=== PATIENT | male | born 1945 | race Caucasian/White ===

== ENCOUNTER 2017-06-23 06:48 | Day surgery (SDC) | payer MEDICARE ==
[~2017-06-23] VITALS: Ht 170.2 cm; Wt 85.1 kg
[~2017-06-23 06:48] MED LIST: ASPI81CH CHEW; CITA20TA4 PO; COZA100T PO; GABA300C5 PO; MELO7.5T4 PO; MULTCAP13 PO; NORC5TAB PO; PANT40TA3 PO; VITA400C2 PO
[2017-06-23 07:06] VITALS: BP 157/91; PULSE 89; RESP 18; TEMP 97.6; O2SAT 95
[2017-06-23] MEDS ORDERED: LACTATED RINGER'S 1000 ML INJ 1,000 ML IV SCH ×2 (07:30→09:48)
[2017-06-23] MEDS ORDERED: DIAZEPAM 5 MG TAB PO SCH (07:30)
[2017-06-23] MEDS ORDERED: DIVA500T PO (07:45)
[2017-06-23] MEDS ORDERED: ZOLP12.5 PO (07:45)
[2017-06-23] MEDS ORDERED: TRAM50TA PO (07:45)
[2017-06-23] MEDS ORDERED: areds (07:45)
[2017-06-23] MEDS ORDERED: AMLO10TA2 PO (07:45)
[2017-06-23 07:55] LABS: AUTOMATED NEUTROPHIL # 7.8 TH/MM3 (1.8-7.7); BASOPHIL # 0.1 TH/MM3 (0-0.2); BASOPHIL % 0.8 % (0.0-2.0); EOSINOPHIL # 0.1 TH/MM3 (0-0.4); EOSINOPHIL % 1.4 % (0.0-4.0); HEMATOCRIT 30.6 % (39.0-51.0); HEMO FLAGS DIFF FINAL; LYMPH % 12.2 % (9.0-44.0); LYMPHOCYTE # 1.3 TH/MM3 (1.0-4.8); MEAN CELL VOLUME 95.5 FL (80.0-100.0); MEAN CORPUSCULAR HEMOGLOBIN 32.2 PG (27.0-34.0); MEAN CORPUSCULAR HGB CONC 33.7 % (32.0-36.0); MONO % 9.9 % (0.0-8.0); NEUT % 75.7 % (16.0-70.0); PLATELET COUNT 276 TH/MM3 (150-450); RED BLOOD COUNT 3.21 MIL/MM3 (4.50-5.90); RED CELL DISTRIBUTION WIDTH 14.9 % (11.6-17.2); WHITE BLOOD COUNT 10.4 TH/MM3 (4.0-11.0)
[2017-06-23 08:04] LABS: APTT (PATIENT) 29.3 SEC (24.3-30.1); INTERNATIONAL NORMALIZED RATIO 0.9 RATIO; PROTHROMBIN TIME - PATIENT 10.2 SEC (9.8-11.6)
[2017-06-23 08:22] LABS: BICARBONATE 26.3 MEQ/L (21.0-32.0); POTASSIUM 4.3 MEQ/L (3.5-5.1)
--- NOTE | 2017-06-23 09:50 | PD.RAD ---
Post Procedure Progress Note Pre Procedure Diagnosis: (1) Lumbar radicular pain Post Procedure Diagnosis: (1) Lumbar radicular pain Procedure Date: Jun 23, 2017 Supervising Radiologist: Casimiro Billy Proceduralist/Assist: Vince Alford, RT(R), Rudy Patten RT(R) Anesthesia: Local Plan of Activity Patient to Unit: [facility] Patient Condition: Good Additional Comments: L3-4 puncture See PACS Report for procedural detail/treatment Casimiro Billy MD Jun 23, 2017 09:50
[2017-06-23] MEDS ORDERED: ACETAMINOPHEN 325 MG TAB PO PRN (10:00)
[2017-06-23] MEDS ORDERED: ONDANSETRON HCL 4 MG/2 ML VIAL IV PRN (10:00)
[2017-06-23 10:15] VITALS: BP 153/75; PULSE 72; RESP 18; TEMP 97.6; O2SAT 96
[2017-06-23] MEDS ORDERED: IOHEXOL 180 MG/ML 20 ML VIAL (for RAD DIAG) IT ONE (10:57)
--- NOTE | 2017-06-23 12:14 | RADRPT ---
EXAM DATE/TIME: 06/23/2017 09:46 [facility] COMPARISON: CT LUMBAR SPINE W/O CONTRAST, June 23, 2017, 10:03. INDICATIONS : Patient presents with lumbar pain and leg weakness in need of lumbar myelogram to rule out spondolith esis. 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 Fluoroscopic guided lumbar puncture. 2. Lumbar myelogram. The risks, benefits and alternatives to the procedure were explained and verbal and written consent w as obtained. The site was prepped in sterile fashion. Full sterile technique was used, including ca p, mask, sterile gloves and gown and a large sterile sheet. Hand hygiene and 2% chlorhexidine and/or betadine/alcohol prep was utilized per protocol for cutaneous antisepsis. The skin and subcutaneous tissues were infiltrated with local anesthetic solution. With fluoroscopic guidance the lumbar thecal sac was punctured at level above and a diagnostic quanti ty of contrast is present in the subarachnoid space. Radiographs were obtained of the lumbar spine. The patient tolerated procedure well and there were no complications. CT scan is to be performed for further evaluation. CONCLUSION: Uncomplicated lumbar myelogram as above. CT scan is to be performed for further evaluation. Casimiro Billy MD on June 23, 2017 at 12:11 Board Certified Radiologist. This report was verified electronically.
[2017-06-23 13:15] VITALS: BP 150/70; PULSE 72; RESP 20; O2SAT 96
--- NOTE | 2017-06-23 13:40 | RADRPT ---
EXAM DATE/TIME: 06/23/2017 10:03 [facility] COMPARISON: No previous studies available for comparison. INDICATIONS : Patient with lumbar pain and leg weakness. Post myelogram. RADIATION DOSE: 38.25 CTDIvol (mGy) MEDICAL HISTORY : Carcinoma, prostate. SURGICAL HISTORY : None. ENCOUNTER: Initial ACUITY: 1 day PAIN SCALE: 0/10 LOCATION: Bilateral lumbar TECHNIQUE: Volumetric scanning of the lumbar spine was performed. Multiplanar reconstructions in the sagittal, coronal and oblique axial planes were performed. Using automated exposure control and adjustment of the mA and/or kV according to patient size, radiation dose was kept as low as reasonably achievable t o obtain optimal diagnostic quality images. DICOM format image data is available electronically for review and comparison. FINDINGS: This examination was performed following injection of intrathecal contrast. VERTEBRAE: Normal vertebral body height. There are endplate osteophytes at multiple levels. There are bilateral posterior pedicular screws at L4-L5. ALIGNMENT: There is 6 mm of anterolisthesis of L4 on L5. T12-L1: No disc herniation, canal stenosis, or neural foraminal stenosis. L1-L2: There is a mild diffuse disc bulge. No spinal canal stenosis or neural foraminal narrowing is visuali zed. L2-L3: There is decreased disc height with vacuum disc phenomenon and minimal retrolisthesis. Abnormal mater ial is present in the epidural space on the left posterior to the L3 vertebral body extending approxi mately 13 mm superiorly from the disc space. This abnormality causes mass effect on the left aspect o f the thecal sac and nerve roots with severe left neural foraminal stenosis. There is also mild right neuroforaminal narrowing. There is also extruded disc material extending inferiorly from the disc sp maame by 12 mm centrally. This has significant mass effect on the thecal sac and nerve roots causing mo derate to severe spinal canal stenosis. L3-L4: There is a diffuse disc bulge with effacement of the lateral recesses. No significant neural foramina l narrowing is identified. L4-L5: Hardware is present posteriorly at this level causing severe beam hardening artifact. There is grade 1 anterolisthesis. No disc herniation or spinal canal stenosis is identified. Neural foramina are obs cured secondary to artifact. There has been laminectomy performed at this level. L5-S1: There is facet hypertrophy and hardware is present posteriorly causing beam hardening artifact. No fo deidre disc herniation or canal stenosis is identified. Neural foramina are not well-visualized but no d efinite canal stenosis is seen. There has been prior left hemilaminectomy. A defect in the right posterior iliac bone is characteristic of prior bone graft harvest site. There is a nonobstructing right upper pole renal stone measuring 11 mm. There is also severe atheroscleroti c disease of the aorta. CONCLUSION: 1. There is a large disc extrusion at the L2-L3 level with material extending superiorly from the dis placed on the left causing severe left neuroforaminal stenosis and extending inferiorly from the disc space centrally causing moderate to severe spinal canal stenosis. 2. Grade 1 anterolisthesis at L4-L5. Posterior spinal hardware is present which obscures the neural f oramina at this level. Blaise Oneil MD on June 23, 2017 at 13:29 Board Certified Radiologist. This report was verified electronically.
== END 2017-06-23 13:27 | disposition home or self-care (01) ==
LOC: HROP 06:48 → HRIP 06:52 → HROP 13:27
PROVIDERS: ATTEND Neurological Surgery
DX: M54.16 Radiculopathy, lumbar region (principal); M48.06 Spinal stenosis, lumbar region; M43.16 Spondylolisthesis, lumbar region; D64.9 Anemia, unspecified; R53.1 Weakness; R56.9 Unspecified convulsions; I10 Essential (primary) hypertension; N20.0 Calculus of kidney; G62.9 Polyneuropathy, unspecified; Z85.46 Personal history of malignant neoplasm of prostate; Z86.73 Personal history of transient ischemic attack (TIA), and cerebral infarction without residual deficits; Z01.818 Encounter for other preprocedural examination
CPT/HCPCS: 62304; 72131; 80048; 85025; 85610; 85730; Q9965

== ENCOUNTER 2017-07-04 06:27 | Observation (INO) | payer MEDICARE ==
[~2017-07-04] VITALS: Ht 168.9 cm; Wt 84.3 kg
[~2017-07-04 06:27] MED LIST changes: +AMLO10TA2 PO; +DIVA500T PO; -MULTCAP13 PO; +OCUVTAB4 PO; +TRAM50TA PO; -VITA400C2 PO; +ZOLP12.5 PO
[2017-07-04 06:38] VITALS: BP 153/80; PULSE 66; RESP 18; TEMP 97.9; O2SAT 96
[2017-07-04] MEDS ORDERED: VANCOMYCIN HCL 1000 MG ON-CALL/NS 250 ML IV SCH ×2 (07:00)
[2017-07-04] MEDS ORDERED: LACTATED RINGER'S 1000 ML IV PRN (07:00)
[2017-07-04] MEDS ORDERED: SODIUM CHLORID 0.9% 500 ML IV PRN (07:00)
[2017-07-04] MEDS ORDERED: POVIDONE IODINE 5% (ANTISEPSIS KIT) 4 APPLICATIONS EACH NARE PRN (07:00)
[2017-07-04] MEDS ORDERED: METOPROLOL TARTRATE 25 MG TAB PO PRN (07:00)
[2017-07-04] MEDS ORDERED: CHLORHEXIDINE GLUCONATE 2 % 1 PACK (2 CLOTHS) TOPICAL PRN (07:00)
[2017-07-04] MEDS ORDERED: INSULIN HUMAN REGULAR 1,000 UNITS/10 ML VIAL SQ PRN (07:00)
[2017-07-04] MEDS ORDERED: THROMBIN (TOPICAL) 5,000 UNIT VIAL ONE (07:04)
[2017-07-04] MEDS ORDERED: ceFAZolin 2 GM PREMIX 50 ML ONE (07:04)
[2017-07-04] MEDS ORDERED: methylPREDNISolone ACETATE 40 MG/ML VIAL ONE (07:04)
[2017-07-04] MEDS ORDERED: BUPIVACAINE/EPINEPHRINE 0.5% PF 30 ML VIAL ONE (07:04)
[2017-07-04] MEDS ORDERED: GELFOAM SIZE 100 ONE ×2 (07:04→08:27)
[2017-07-04] MEDS ORDERED: GENTAMICIN SULFATE 80 MG/2 ML VIAL ONE (07:05)
[2017-07-04] MEDS ORDERED: ACETAMINOPHEN 1000 MG/100 ML VIAL IV ONE (08:02)
[2017-07-04] MEDS ORDERED: FAMOTIDINE 20 MG/2 ML VIAL ONE (08:03)
[2017-07-04] MEDS ORDERED: MIDAZOLAM HCL 2 MG/2 ML VIAL ONE (08:03)
[2017-07-04] MEDS ORDERED: ARTIFICIAL TEARS OPTH OINT 3.5 APPLIC/3.5 GM TUBO ONE (08:03)
[2017-07-04] MEDS ORDERED: fentaNYL CITRATE 250 MCG/5 ML AMP ONE ×2 (08:03)
[2017-07-04] MEDS ORDERED: PROPOFOL 200 MG/20 ML AMP IV ONE (08:27)
[2017-07-04] MEDS ORDERED: ePHEDrine/NS 25 MG/5 ML SYR IV ONE (08:27)
[2017-07-04] MEDS ORDERED: NEOSTIGMINE 3 MG/3 ML SYR IV ONE (08:27)
[2017-07-04] MEDS ORDERED: LACTATED RINGER'S 1000 ML INJ 1,000 ML IV ONE (08:28)
[2017-07-04] MEDS ORDERED: PHENYLEPH/NS 1000 MCG/10 ML SYR IV ONE (08:28)
[2017-07-04] MEDS ORDERED: ONDANSETRON HCL 4 MG/2 ML VIAL IV PUSH ONE (08:28)
[2017-07-04] MEDS ORDERED: DO NOT ADM ANY ANTICOAGULANT DRUGS PRN (11:10)
[2017-07-04] MEDS ORDERED: NS + KCL 20 MEQ INJ 1,000 ML IV SCH (12:38)
[2017-07-04] MEDS ORDERED: DOCUSATE SODIUM 100 MG CAP PO SCH (12:45)
[2017-07-04] MEDS ORDERED: ACETAMINOPHEN 325 MG TAB PO PRN (12:45)
[2017-07-04] MEDS ORDERED: ACETAMINOPHEN/HYDROcodone 325 MG/10 MG TAB PO PRN ×2 (12:45)
[2017-07-04] MEDS ORDERED: SODIUM CHLORIDE 0.9% FLUSH 5 ML FLUSH IVF PRN (12:45)
[2017-07-04] MEDS ORDERED: MORPHINE SULFATE 4 MG/ML INJ IV PUSH PRN ×2 (12:45)
[2017-07-04] MEDS ORDERED: SODIUM CHLORIDE 0.9% FLUSH 5 ML FLUSH IVF SCH (12:45)
[2017-07-04] MEDS ORDERED: PANTOPRAZOLE SOD 40 MG DELAYED RELEASE TAB PO SCH (12:45)
--- NOTE | 2017-07-04 14:04 | PD.OP ---
Operative Report Date of Surgery: Jul 04, 2017 Preoperative Diagnosis: Lumbar spinal stenosis Postoperative Diagnosis: Lumbar spinal stenosis Procedure: L2-3, L3-4 decompressive laminectomy, mesial facetectomy, foraminotomy. Microsurgical dissection Anesthesia: general Surgeon: Jorden Hansen Sr. Logistics Analyst(s): Cristela Rizvi Operation and Findings: INDICATIONS FOR THE SURGICAL PROCEDURE The patient is a 72 year-old male who presented with intractable mechanical back pain and clinical evidence of L3, and L4 lower extremity radiculopathy. He was found to have significant lumbar spinal stenosis at L2-3, L3-4 with significant mass effect on the neural structures which correlated with the clinical symptoms. The patient has failed maximum nonsurgical management including multiple modalities of conservative treatment as well as pain management interventions by an interventional pain specialist. A surgical decompression was indicated as a last resort. The [id number] details of the procedure, indications, alternatives, risks and potential complications were fully discussed with the patient. The patient fully understood. All the questions were answered. No guarantees were given. The patient voiced requesting the procedure and provided informed consents. The patient was offered the alternative of delaying the procedure and continuing with nonsurgical management. DETAILS OF THE SURGICAL PROCEDURE After the induction of general anesthesia, endotracheal intubation was performed. A Sutherland catheter, bilateral ELLE hose and sequential compression devices were placed and kept throughout the procedure. The patient was positioned prone on a Terrence table over a Zana frame. All pressure points were carefully padded with eggcrate mattress. The eyes were tapped shut after ointment was applied by the anesthesiologist to prevent corneal abrasion. A Mandeep hugger was placed over the exposed lower body to maintain control of the core body temperature. The lower lumbar region was prepped and draped in the usual sterile fashion. A spinal needle was placed for localization and an x- ray performed with a C-arm. A skin incision was made in the midline over the spinous processes L2, L3, L4 with a #10 blade. Small subcutaneous bleeders were controlled with a bipolar and the dissection was carried out through the lumbar fascia exposing the spinous processes. A subperiostial dissection was performed with a Lawrence elevator and a Bovie over the L2-L3, L3-L4 spinous process lamina and facets. A microdiscectomy self-retaining retractor was placed on the incision and an x- ray was obtained with an instrument placed underneath the lamina of L2. At this point in the procedure the operating microscope was draped in the usual sterile fashion and brought to the field. The rest of the surgical procedure was performed using microsurgical dissection technique with exception of the closure. Once the level was confirmed, a decompressive laminectomy was performed at L2-L3 , L3-L4 using the TPS drill with a 4mm drill bit. A medial facetectomy was performed and the superior free border of the ligamentum flavum was dissected with a ligament dissector and removed with a thin footplate 2 mm Kerrison. The medial facetectomy was done and the L3 nerve root was identified and followed towards its exit in the foramen. Epidural veins located laterally to the dural sac were coagulated with a bipolar and incised with microscissors. Gentle medial retraction of the dural sac allowed inspection of the disc space. The patient had severe facet arthropathy with hypertrhopy of the joint facets and ligamentum flavum resulting in mass effect over the dural sac and nerve roots. In addition, there was a mild broad-based disc protusion. The incision was irrigated with a large amount of saline solution. A Valsalva maneuver failed to show any cerebrospinal fluid leak or bleeding. The decompression was assessed again and found to be satisfactory. The incision was then closed in layers. The fascia was closed with 0 Vicryl sutures in an interrupted fashion. The superficial fascia was closed with 0 Vicryl sutures. The fascia was infiltrated with 0.5% Marcaine with epinephrine 1:100,000 dilution. The subcutaneous tissue was irrigated then closed with 0 Vicryl and 3 -0 Vicryl. The skin was closed with 4-0 running subcuticular Vicryl. A sterile dressing was applied. At the end of the procedure, the sponge, needle and instrument counts were all correct. Estimated blood loss was less than 80-100 cc. No blood transfusion was given. No intraoperative complications occurred. The patient received prophylactic antibiotics. The patient was then extubated and transferred to the recovery room in stable condition. Jorden Hansen MD Jul 04, 2017 14:04
--- NOTE | 2017-07-04 14:21 | RADRPT ---
EXAM DATE/TIME: 07/04/2017 09:15 [facility] COMPARISON: No previous studies available for comparison. INDICATIONS : L2-3 Laminectomy. MEDICAL HISTORY : Carcinoma, prostatic. Smoker. SURGICAL HISTORY : None. ENCOUNTER: Initial ACUITY: 1 day PAIN SCORE: Non-responsive. LOCATION: Lumbar spine. FINDINGS: A single lateral view of the lumbar spine was performed. Level localizer was placed at the L2-3 disc interspace. CONCLUSION: Level localizer at L2-3. Vin Hirsch MD on July 04, 2017 at 14:19 Board Certified Radiologist. This report was verified electronically.
[2017-07-04 14:40] VITALS: BP 110/55; PULSE 74; RESP 17; TEMP 96.4; O2SAT 93
[2017-07-04] MEDS ORDERED: NORC5TAB PO (16:12)
[2017-07-04 16:30] VITALS: O2SAT 95
--- NOTE | 2017-07-04 16:31 | HHI.DCPOC ---
Discharge Care Plan Diagnosis: (1) S/P lumbar laminectomy Goals to Promote Your Health * To prevent worsening of your condition and complications * To maintain your health at the optimal level Directions to Meet Your Goals Take your medications as prescribed Follow your dietary instruction Follow activity as directed Keep your appointments as scheduled Take your immunizations and boosters as scheduled If your symptoms worsen call your PCP, if no PCP go to Urgent Care Center or Emergency Room Smoking is Dangerous to Your Health. Avoid second hand smoke Call the 24-hour hour crisis hotline for domestic abuse at Angelica Boyce Jul 04, 2017 16:31
--- NOTE | 2017-07-04 16:32 | HHI.DS ---
Discharge Summary Admission Date Jul 04, 2017 at 12:38 Discharge Date: Jul 04, 2017 Admitting Diagnosis s/p lumbar laminectomy (1) S/P lumbar laminectomy ICD Code: Z98.890 - Other specified postprocedural states Brief History The patient is a 72 year-old male who presented with intractable mechanical back pain and clinical evidence of L3, and L4 lower extremity radiculopathy. He was found to have significant lumbar spinal stenosis at L2-3, L3-4 with significant mass effect on the neural structures which correlated with the clinical symptoms. The patient has failed maximum nonsurgical management including multiple modalities of conservative treatment as well as pain management interventions by an interventional pain specialist. A surgical decompression was indicated as a last resort. Imaging Last Impressions Lumbar Spine X-Ray 07/04/17 0000 Signed Impressions: Service Date/Time: Friday, July 04, 2017 09:15 - CONCLUSION: Level localizer at L2-3. Vin Hirsch MD Hospital Course Mr. Castellanos underwent a L2-3, L3-4 decompressive laminectomy, mesial facetectomy, foraminotomy, microsurgical dissection on Jul 04, 2017 for lumbar spinal stenosis. His surgery went well without complications. He was discharged home in stable conditions. Pt Condition on Discharge: Stable Discharge Disposition: Discharge Home Discharge Instructions DIET: Follow Instructions for: Heart Healthy Diet ACTIVITIES You can perform: Weight Bearing As Kristine ADDITIONAL Activity Instructio: Avoid strenuous activities, heavy lifting, bending, twisting, pushing, pulling or any other activities that may place stress on the spine. Wear lumbar brace when out of bed. Use walker or assistive devices as needed when ambulating to avoid falls. Continued Medications: Amlodipine (Amlodipine) 10 Mg Tab 10 MG PO DAILY for Blood Pressure Management, #30 TAB 0 Refills Aspirin (Aspirin) 81 Mg Chew 81 MG CHEW DAILY, TAB 0 Refills Citalopram (Citalopram) 20 Mg Tab 20 MG PO DAILY for Control Depression, #30 TAB [address] (Divalproex DR) 500 Mg Tabdr 1500 MG PO DAILY for Control Seizures, #60 TAB 0 Refills Gabapentin (Gabapentin) 300 Mg Cap 300 MG PO BID, #90 CAP 0 Refills Hydrocodone-Acetaminophen (Roslyn) 5-325 mg Tab 1 TAB PO Q6H PRN for PAIN, #15 TAB 0 Refills (This prescription has been renewed ) Losartan (Cozaar) 100 Mg Tab 100 MG PO DAILY for Blood Pressure Management, #30 TAB 0 Refills Meloxicam (Meloxicam) 7.5 Mg Tab 7.5 MG PO DAILY for Arthritis Pain, TAB 0 Refills Multiple Vitamins W/ Minerals (Preservision Areds) 1 Tab 1 TAB PO DAILY for Nutritional Supplement, TAB 0 Refills Pantoprazole (Pantoprazole) 40 Mg Tab 40 MG PO DAILY for Reflux, #30 TAB 0 Refills Tramadol (Tramadol) 50 Mg Tab 100 MG PO Q6H PRN for PAIN, TAB 0 Refills Angelica Boyce Jul 04, 2017 16:32
[2017-07-04] MEDS ORDERED: ceFAZolin 2 GM PREMIX 50 ML IV SCH (17:00)
[2017-07-04] MEDS ORDERED: GABAPENTIN 300 MG CAP PO SCH (21:00)
[2017-07-05] MEDS ORDERED: LOSARTAN 50 MG TAB PO SCH (09:00)
[2017-07-05] MEDS ORDERED: DIVALPROEX DR 500 MG TABEC PO SCH (09:00)
[2017-07-05] MEDS ORDERED: CITALOPRAM HYDROBROMIDE 20 MG TAB PO SCH (09:00)
[2017-07-30] MEDS ORDERED: GABA300C5 PO (11:58)
[2017-07-30] MEDS ORDERED: IBUP400T20 PO (11:58)
[2017-09-04] MEDS ORDERED: GABA300C5 PO (14:13)
== END 2017-07-04 19:08 | disposition home or self-care (01) ==
LOC: HSDC 06:27 → HSDI 12:38 → N06B 14:24
PROVIDERS: ADMIT Neurological Surgery; ATTEND Neurological Surgery
PROC: 01NB0ZZ Release Lumbar Nerve, Open Approach (ICD-10-PCS; principal; 2017-07-04 08:18)
DX: M48.06 Spinal stenosis, lumbar region (principal); K21.9 Gastro-esophageal reflux disease without esophagitis; I10 Essential (primary) hypertension; E78.5 Hyperlipidemia, unspecified; Z85.46 Personal history of malignant neoplasm of prostate; Z79.82 Long term (current) use of aspirin; Z79.899 Other long term (current) drug therapy; Z92.3 Personal history of irradiation; Z87.891 Personal history of nicotine dependence
CPT/HCPCS: 00670; 63047; 63048; 72020; 76000; 96361; 96365; 97162; G0378; G8987; G8988; J0131; J0690; J1580; J2250; J2370; J2405; J2710; J3010; J3370; J3480; J7050; J7120; L0627; J1030

== ENCOUNTER 2018-10-02 14:42 | Inpatient (IN) ==
[2018-10-02 16:45] LABS: Baso # (Auto) 0.1 th/mm3 (0.0-0.2); Baso % (Auto) 0.8 % (0.0-2.0); Eos # (Auto) 0.1 th/mm3 (0.0-0.4); Eos % (Auto) 1.3 % (0.0-4.0); Hematocrit 29.6 % (39.0-51.0); Hemoglobin 10.2 gm/dL (13.0-17.0); Lymph % (Auto) 15.6 % (9.0-44.0); Mean Corpuscular HGB Conc 34.5 % (32.0-36.0); Mean Corpuscular Hemoglobin 31.9 pg (27.0-34.0); Mean Corpuscular Volume 92.4 fL (80.0-100.0); Mean Platelet Volume 7.3 fL (7.0-11.0); Mono # (Auto) 0.8 th/mm3 (0.0-0.9); Mono % (Auto) 12.2 % (0.0-8.0); Neut # (Auto) 4.6 th/mm3 (1.8-7.7); Neut % (Auto) 70.1 % (16.0-70.0); Platelet Count 306 th/mm3 (150-450); Red Cell Distribution Width 22.3 % (11.6-17.2); White Blood Count 6.5 th/mm3 (4.0-11.0)
[2018-10-02] MEDS ORDERED: Morphine Sulfate Inj 2 MG/ML Vial IV.PUSH ONE (16:45)
[2018-10-02 16:54] LABS: Activated Partial Thrombo Time 30.7 sec (23.4-31.7)
[2018-10-02 17:06] LABS: Alanine Aminotransferase 20 U/L (12-78); Albumin 2.9 g/dL (3.4-5.0); Anion Gap 7 meq/L (5-15); Aspartate Aminotransferase 25 U/L (15-37); Blood Urea Nitrogen 23 mg/dL (7-18); Calcium 9.2 mg/dL (8.5-10.1); Carbon Dioxide 28.6 meq/L (21.0-32.0); Chloride 103 meq/L (98-107); Glomerular Filtration Rate 57 mL/min (>89); Glucose,Random 69 mg/dL (74-106); Potassium 4.2 meq/L (3.5-5.1); Sodium 139 meq/L (136-145)
[2018-10-02 17:08] LABS: Alkaline Phosphatase 93 U/L (45-117); Total Protein 7.1 g/dL (6.4-8.2)
--- NOTE | 2018-10-02 17:12 | XR ---
EXAM DATE: 10/02/2018 5:09 PM EST AGE/SEX: 73 years / Male INDICATIONS: Shortness of breath after fall today. CLINICAL DATA: This is the patient's initial encounter. Patient reports that signs and symptoms have been present for 1 day and indicates a pain score of 10/10. MEDICAL/SURGICAL HISTORY: Carcinoma, prostatic. Smoker. . Laminectomy. COMPARISON: [facility], XR CHEST PA AND LAT, 06/27/2017. . FINDINGS: A single AP view of the chest demonstrates the lungs to be symmetrically aerated without evidence of mass, infiltrate or effusion. The cardiomediastinal contours are unremarkable. Osseous structures a re intact. CONCLUSION: No evidence of acute cardiopulmonary process. Electronically signed by: Vin Hirsch MD 10/02/2018 5:11 PM EST
--- NOTE | 2018-10-02 17:17 | XR ---
EXAM DATE: 10/02/2018 5:10 PM EST AGE/SEX: 73 years / Male INDICATIONS: Lower back pain. Fall today. CLINICAL DATA: This is the patient's initial encounter. Patient reports that signs and symptoms have been present for 1 day and indicates a pain score of 10/10. MEDICAL/SURGICAL HISTORY: Carcinoma, prostatic. Smoker. . Laminectomy. COMPARISON: [facility] [place] SPINE LUMBAR LATERAL ONLY, 07/04/2017. . FINDINGS: Flexion and extension views of the spine were performed. Significant decreased range of motion is pascale ntified. Mild retrolisthesis at L3-4 is noted.. There is no evidence of instability. Progressing degenerative disc disease has developed at L3-4 compared to the previous exam in 2017. Postsurgical changes following fusion at L5-S1 appear stable. Centimeter calcification is seen in the right paraspinal region at the L2 level which has the appearance of a renal calculus. CONCLUSION: Degenerative listhesis at L3-4 which remains unchanged during flexion and extension. Decreased range of motion. Progressing degenerative disc disease at L3-4. No acute bony abnormality. Status post fusion at L5-S1. Electronically signed by: Vin Hirsch MD 10/02/2018 5:15 PM EST
--- NOTE | 2018-10-02 17:24 | ED ---
HPI General Chief Complaint: Medical Clearance Stated Complaint: Xfer from [facility] Time Seen by Provider: 10/02/18 15:10 Source: patient and EMS Mode of arrival: EMS Limitations: physical limitation History of Present Illness HPI Narrative: 73-year-old male with transfer from [facility] in [place] to be admitted with neuro surgeon consultation. Patient states that he woke up this morning around 5:30 in the morning with complete numbness and weakness of bilateral lower extremity. Patient try to get out of bed and fell on his face and also his back. Patient complained of mild pain on the right elbow and right hand. Patient states that the numbness sensation and weakness sensation got better after about 2 hours. Patient states that he still has some numbness sensation of bilateral thigh area this afternoon. Patient states that the strength got better since then. Patient complains of leg pain cramping pain all night last night. Patient has history of chronic back pain status post back surgery in the past. Patient's neurosurgeon in the past Dr. Hansen. Patient went to [facility] today and had CT scan of the lumbar spine done. CT lumbar spine show possible hemorrhage left level to the L2 and L3. Neurosurgeon specimen preparation assistant today Dr. Peter was contacted and accepted transfer. Patient has history of prostate cancer, osteoarthritis, GERD, hypertension, neuropathy. MD Complaint: Reports back pain and back injury Onset (ago): hour(s) Duration: Reports constant Similar Symptoms Previously: No Location: Reports lumbar spine Severity: severe Quality: Reports sharp Radiation: Reports left leg and right leg Severity scale (1-10): 10 Relieving factors: none Exacerbating factors: movement Context: Reports fall Associated symptoms: Reports weakness, numbness and loss of sensation in lower extremities Treatments prior to arrival: Reports other medications Related Data Home Medications Medication Instructions Recorded Confirmed aspirin 81 mg PO DAILY 10/02/18 10/02/18 citalopram 20 mg PO DAILY 10/02/18 10/02/18 divalproex 1,500 mg PO DAILY 10/02/18 10/02/18 gabapentin 300 mg PO BID 10/02/18 10/02/18 losartan 10 mg PO DAILY 10/02/18 10/02/18 meloxicam 15 mg PO DAILY 10/02/18 10/02/18 pantoprazole [Protonix] 40 mg PO DAILY 11/09/18 11/09/18 Allergies Allergy/AdvReac Type Severity Reaction Status Date / Time No Known Allergies Unknown Uncoded 10/27/17 16:04 Review of Systems ROS: all other systems reviewed are negative PMFSH Medical History Medical History Back pain (Acute) Colonic polyp (Acute) GERD (gastroesophageal reflux disease) (Acute) Hypertension (Acute) Neuropathy (Acute) Osteoarthritis (Acute) Prostate carcinoma (Acute) Surgical History Surgical History Hx of endarterectomy (Acute) Social History Social History Substance History: No History of Abuse Second Hand Smoke Exposure: Yes Smoking Status: Current every day smoker Tobacco Type: Cigarettes How Often Do You Have a Drink Containing Alcohol: 2 to 4 times a month Recent Travel in [email or web address] within the Last 8 Weeks: No Recent Out of Country Travel within the Last 8 Weeks: No Immunization History Tetanus Immunization: Unsure Exam Narrative Exam Narrative: GENERAL: Well-nourished, well-developed patient. SKIN: Focused skin assessment warm/dry. HEAD: Normocephalic. EYES: No scleral icterus. No injection or drainage. NECK: Supple, trachea midline. No JVD or lymphadenopathy. CARDIOVASCULAR: Regular rate and rhythm without murmurs, gallops, or rubs. RESPIRATORY: Breath sounds equal bilaterally. No accessory muscle use. GASTROINTESTINAL: Abdomen soft, non-tender, nondistended. MUSCULOSKELETAL: No cyanosis, or edema. BACK: Moderate tenderness in palpation lumbar area, without obvious deformity. No CVA tenderness. Neurologic exam: Patient is awake and alert oriented x3. Patient can move all extremity. Sensory motor function distally intact. Course Initial Documented Vital Signs Temperature 97.8 F 10/02/18 15:09 Pulse Rate 80 10/02/18 15:09 Respiratory Rate 18 10/02/18 15:09 Blood Pressure 148/75 H 10/02/18 15:09 Pulse Oximetry 93 L 10/02/18 15:09 Last Documented Vital Signs Temperature 97.8 F 10/02/18 15: Pulse Rate 80 10/02/18 15:09 Respiratory Rate 18 10/02/18 15:09 Blood Pressure 148/75 H 10/02/18 15:09 Pulse Oximetry 93 L 10/02/18 15:09 Medical Decision Making MDM Narrative Medical decision making narrative: 73-year-old male with possible hemorrhage within the spinal cord level L2-L3. Patient was seen at [facility] in [place] and transferred to [place] for evaluation by neurosurgeon. Patient will be admitted to project management [facility] and neurosurgical consultation. MRI lumbar spine with and without contrast in process. Medical Screen Exam Complete: Yes Emergency Medical Condition: Yes Lab Data Result diagrams: 10/02/18 16:35 10/02/18 16:35 Lab Results 10/02/18 10/02/18 10/02/18 Range/Units 16:35 16:35 16:35 WBC 6.5 (4.0-11.0) th/mm3 RBC 3.20 L (4.50-5.90) mil/mm3 Hgb 10.2 L (13.0-17.0) gm/dL Hct 29.6 L (39.0-51.0) % MCV 92.4 (80.0-100.0) fL MCH 31.9 (27.0-34.0) pg MCHC 34.5 (32.0-36.0) % RDW 22.3 H (11.6-17.2) % Plt Count 306 (150-450) th/mm3 MPV 7.3 (7.0-11.0) fL Neut % (Auto) 70.1 H (16.0-70.0) % Lymph % (Auto) 15.6 (9.0-44.0) % Bourbon % (Auto) 12.2 H (0.0-8.0) % Eos % (Auto) 1.3 (0.0-4.0) % Baso % (Auto) 0.8 (0.0-2.0) % Neut # (Auto) 4.6 (1.8-7.7) th/mm3 Lymph # (Auto) 1.0 (1.0-4.8) th/mm3 Bourbon # (Auto) 0.8 (0.0-0.9) th/mm3 Eos # (Auto) 0.1 (0.0-0.4) th/mm3 Baso # (Auto) 0.1 (0.0-0.2) th/mm3 WBC Differential . Differential Comment Auto diff final PT 10.0 (9.8-11.6) sec INR 1.0 Ratio APTT 30.7 (23.4-31.7) sec Sodium 139 (136-145) meq/L Potassium 4.2 (3.5-5.1) meq/L Chloride 103 (98-107) meq/L Carbon Dioxide 28.6 (21.0-32.0) meq/L Anion Gap 7 (5-15) meq/L BUN 23 H (7-18) mg/dL Creatinine 1.23 (0.60-1.30) mg/dL Estimated GFR 57 L (>89) mL/min Random Glucose 69 L (74-106) mg/dL Calcium 9.2 (8.5-10.1) mg/dL Total Bilirubin 0.2 (0.2-1.0) mg/dL AST 25 (15-37) U/L ALT 20 (12-78) U/L Alkaline Phosphatase 93 (45-117) U/L Total Protein 7.1 (6.4-8.2) g/dL Albumin 2.9 L (3.4-5.0) g/dL Imaging Data Radiologist's impression: Chest X-Ray 10/02/18 16:26 CONCLUSION: No evidence of acute cardiopulmonary process. Lumbar Spine X-Ray 10/02/18 16:36 CONCLUSION: Degenerative listhesis at L3-4 which remains unchanged during flexion and extension. Decreased range of motion. Progressing degenerative disc disease at L3-4. No acute bony abnormality. Status post fusion at L5-S1. Discharge Plan Discharge Disposition Patient Disposition: 30 Still Patient Discharge Details Diagnosis: Spinal cord hemorrhage Physicians Team ED Provider: Tyrell Mittal Primary Care Provider: Srinivas Mendieta Attending Provider: Alysa Welsh Other Providers: Eloy Peter Status ED Status: Admitted Patient
[2018-10-02] MEDS ORDERED: Gadobutrol PF 10 MMOL/10 ML Vial (for RAD) IV.SIG ONE (17:37)
--- NOTE | 2018-10-02 17:41 | P.HPCC ---
History of Present Illness Primary Care Physician: Srinivas Mendieta Chief Complaint: Lower extremity weakness History of Present Illness: Patient is a 73-year-old male with past medical history significant for hypertension, COPD, Prostate carcinoma, history of previous lumbar laminectomy who came to the [place] emergency department as a transfer from transfer from [facility] [place]. He was accepted by neurosurgery Dr. Peter for acute onset bilateral lower extremity weakness. Patient states that he woke up this morning around 6 AM with numbness and weakness of bilateral lower extremity. On attempt to walk he fell on his face due to weakness. Patient states that the strength got slight better since then. CT scan of the lumbar spine large area of soft attenuation attenuation in the ventral epidural space L2-L3 level suspicious for large disc extrusion with spinal canal stenosis with differential diagnosis involving hemorrhage, there is also at least moderate bilateral neural foraminal stenosis. I evaluate the patient in the ED. He complains of weakness more on the left leg which he is unable to lift. There is generalized numbness but he is able to feel my touch. Critical care was requested to admit the patient to the ICU. Discussed with Dr. Mittal ED and Dr. Peter neurosurgery. A stat MRI of the lumbar spine had been ordered. 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 This includes certification that hospital inpatient services are reasonable and necessary and in the case of services not specified as inpatient-only under 42 CFR 419.22(n), that they are appropriately provided as inpatient services in accordance to with the 2-midnight benchmark under 43 CFR 412.3(e) Estimated Total Length of Stay (Days): 5 Plans for Post Hospital Care: Not yet determined Review of Systems All other systems reviewed negative except as stated in HPI PMFSH - History History Provided By: Patient - Medical History Medical History: Medical History (Last Reviewed 10/02/18 @ 17:40 by Tyrell Mittal MD) Back pain Colonic polyp GERD (gastroesophageal reflux disease) Hypertension Neuropathy Osteoarthritis Prostate carcinoma - Surgical History Surgical History: Surgical History (Last Reviewed 10/02/18 @ 17:40 by Tyrell Mittal MD) Hx of endarterectomy - Tobacco History Second Hand Smoke Exposure: Yes Tobacco Use In Past 30 Days: Yes Smoking Status: Current every day smoker Tobacco Type: Cigarettes - Alcohol History How Often Do You Have a Drink Containing Alcohol: 2 to 4 times a month - Substance Use History Substance History: No History of Abuse - Travel History Recent Travel in the USA Within the Last 8 Weeks: No Recent Travel Out of the Country Within the Last 8 Weeks: No - Immunization History Tetanus Immunization: Unsure Medications and Allergies Active Medications: Active Medications Acetaminophen (Tylenol) 650 mg PO Q6H PRN PRN Reason: PAIN 1-10 AND/OR FEVER >101F Al Hydroxide/Mg Hydroxide (Milk Of Magnesia Liq) 30 ml PO Q12H PRN PRN Reason: Mild Constipation Albuterol (Duoneb Neb (Prn)) 1 ampul NEB Q6HR NEB ADAM Albuterol (Albuterol Neb (Adam)) 2.5 mg NEB Q2HR NEB PRN PRN Reason: SHORTNESS OF BREATH/WHEEZING Bisacodyl (Dulcolax Supp) 10 mg RECTAL DAILY PRN PRN Reason: SEVERE CONSITIPATION Chlorhexidine Gluconate (Chlorhexidine 2% Cloth) 3 pack TOPICAL DAILY@0400 AD[facility] Stop: 10/08/18 03:59 Chlorhexidine Gluconate (Chlorhexidine 2% Cloth) 3 pack TOPICAL DAILY@0400 PRN PRN Reason: Extra cloth needed Stop: 10/08/18 03:59 Famotidine (Pepcid Pf Inj) 20 mg IV.PUSH Q12HR ADAM Sodium Chloride (Ns Inj) 1,000 mls @ 84 mls/hr IV.CONT .[id number] ADAM Lactulose (Lactulose Liq) 30 ml PO DAILY PRN PRN Reason: SEVERE CONSITIPATION Senna/Docusate Sodium (Shazia-Colace) 1 tab PO BID ADAM Sennosides (Senokot) 17.2 mg PO Q12H PRN PRN Reason: Moderate Constipation Allergies Allergy/AdvReac Type Severity Reaction Status Date / Time No Known Allergies Unknown Uncoded 10/27/17 16:04 Home Medications Medication Instructions Recorded Confirmed Type aspirin 81 mg PO DAILY 10/02/18 10/02/18 History citalopram 20 mg PO DAILY 10/02/18 10/02/18 History divalproex 1,500 mg PO DAILY 10/02/18 10/02/18 History gabapentin 300 mg PO BID 10/02/18 10/02/18 History losartan 10 mg PO DAILY 10/02/18 10/02/18 History meloxicam 15 mg PO DAILY 10/02/18 10/02/18 History pantoprazole [Protonix] 40 mg PO DAILY 10/02/18 10/02/18 History Results - Labs CBC & Chem 7: 10/03/18 04:40 10/03/18 04:40 Labs: Short CBC 10/02/18 Range/Units 16:35 WBC 6.5 (4.0-11.0) th/mm3 Hgb 10.2 L (13.0-17.0) gm/dL Hct 29.6 L (39.0-51.0) % Plt Count 306 (150-450) th/mm3 BMP 10/02/18 16:35 Sodium 139 Potassium 4.2 Chloride 103 Carbon Dioxide 28.6 BUN 23 H Creatinine 1.23 Calcium 9.2 Liver Function 10/02/18 Range/Units 16:35 Total Bilirubin 0.2 (0.2-1.0) mg/dL AST 25 (15-37) U/L ALT 20 (12-78) U/L Alkaline Phosphatase 93 (45-117) U/L Albumin 2.9 L (3.4-5.0) g/dL - Imaging Impressions Chest X-Ray 10/02/18 16:26 CONCLUSION: No evidence of acute cardiopulmonary process. Lumbar Spine X-Ray 10/02/18 16:36 CONCLUSION: Degenerative listhesis at L3-4 which remains unchanged during flexion and extension. Decreased range of motion. Progressing degenerative disc disease at L3-4. No acute bony abnormality. Status post fusion at L5-S1. Exam Vital signs: Vital Signs 10/02/18 15:09 Temperature 97.8 F Pulse Rate 80 Respiratory Rate 18 Blood Pressure 148/75 H Pulse Oximetry 93 L Intake & Output 10/01/18 10/02/18 10/02/18 18:59 06:59 18:59 Weight 81.647 kg Narrative: GENERAL: Well-nourished, well-developed patient, [place] SKIN: warm/dry. HEAD: Normocephalic. EYES: No injection or drainage. NECK: Supple, trachea midline. No JVD or lymphadenopathy. CARDIOVASCULAR: Regular rate and rhythm without murmurs, gallops, or rubs. RESPIRATORY: Air entry equal bilaterally no wheezes GASTROINTESTINAL: Abdomen soft, non-tender, nondistended. MUSCULOSKELETAL: No cyanosis, or edema. Neurologic exam: Patient alert awake oriented, normal strength bilateral upper extremities. Bilateral lower extremities extremity 4 out of 5 power. Diminished fine touch. Reflexes diminished. Septic Shock Reassessment Septic shock perfusion: reassessment completed Caprini VTE Risk Assessment Caprini VTE Risk Assessment: Moderate/High Risk (score >= 2) VTE Pharmacological Exception Reason: Hemorrhage Caprini Risk Assessment Model: Point Value = 1 Point Value = 2 Point Value = 3 Point Value = 5 Age 41-60 Minor surgery BMI > 25 kg/m2 Swollen legs Varicose veins or History of unexplained or recurrent spontaneous Oral contraceptives or hormone replacement Sepsis (< 1 month) Serious lung disease, including pneumonia (< 1 month) Abnormal pulmonary function Acute myocardial infarction Congestive heart failure (< 1 month) History of inflammatory bowel disease Medical patient at bed rest Age 61-74 Arthroscopic surgery Major open surgery (> 45 min) Laparoscopic surgery (> 45 min) Malignancy Confined to bed (> 72 hours) Immobilizing plaster cast Central venous access Age >= 75 History of VTE Family history of VTE Factor V Leiden Prothrombin [id number] Lupus anticoagulant Anticardiolipin antibodies Elevated serum homocysteine Heparin-induced thrombocytopenia Other congenital or acquired thrombophilia Stroke (< 1 month) Elective arthroplasty Hip, pelvis, or leg fracture Acute spinal cord injury (< 1 month) Prophylaxis Regimen: Total Risk Factor Score Risk Level Prophylaxis Regimen 0-1 Low Early ambulation 2 Moderate Order ONE of the following: *Sequential Compression Device (SCD) *Heparin 5000 units SQ BID 3-4 Higher Order ONE of the following medications: *Heparin 5000 units SQ TID *Enoxaparin/Lovenox 40 mg SQ daily (WT < 150 kg, CrCl > 30 mL/min) *Enoxaparin/Lovenox 30 mg SQ daily (WT < 150 kg, CrCl > 10-29 mL/min) *Enoxaparin/Lovenox 30 mg SQ BID (WT < 150 kg, CrCl > 30 mL/min) AND/OR *Sequential Compression Device (SCD) 5 or more Highest Order ONE of the following medications: *Heparin 5000 units SQ TID (Preferred with Epidurals) *Enoxaparin/Lovenox 40 mg SQ daily (WT < 150 kg, CrCl > 30 mL/min) *Enoxaparin/Lovenox 30 mg SQ daily (WT < 150 kg, CrCl > 10-29 mL/min) *Enoxaparin/Lovenox 30 mg SQ BID (WT < 150 kg, CrCl > 30 mL/min) AND *Sequential Compression Device (SCD) 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 Code(s): M47.16 - Other spondylosis with myelopathy, lumbar region Status: Acute (2) Weakness of lower extremity Code(s): R29.898 - Other symptoms and signs involving the musculoskeletal system Status: Acute (3) COPD (chronic obstructive pulmonary disease) Code(s): J44.9 - Chronic obstructive pulmonary disease, unspecified Status: Chronic (4) History of prostate cancer Code(s): Z85.46 - Personal history of malignant neoplasm of prostate Status: Chronic (5) History of hypertension Code(s): Z86.79 - Personal history of other diseases of the circulatory system Status: Chronic - Assessment and Plan Plan: ASSESSMENT: Lumbar cord compression likely secondary to herniated disc and spinal stenosis Weakness of bilateral lower extremity/paraparesis History of prostate cancer COPD Hypertension PLAN: NEURO: -Clinical findings consistent with spinal cord compression -CT lumbar spine at the outside hospital shows acute disc protrusion L2-L3 level , possible epidural hemorrhage causing compression of the spinal cord -Patient is getting stat MRI of the lumbar spine Dr. Peter neurosurgery is aware -Avoid hypotension pain controlled with morphine RESP: -DuoNeb every 6 hours scheduled and as needed -Aggressive pulmonary toilet CV: -Normal saline IV fluids 125 mL/h -Avoid hypotension, target map above 70-80 GI: -N.p.o. until surgical plans are defined, IV famotidine : -Monitor renal function closely. -IV hydration as above ID: -No indication for antibiotics at this time HEME: -Monitor CBC, coags -Coags are normal ENDO: -Electrolyte replacement per protocol PROPH: -Bilateral lower extremity SCDs. No chemical DVT prophylaxis until epidural hematoma is ruled out/famotidine LINES: -Utilize peripheral IVs, central line if needed Stat MRI shows MRI showing large herniated disc at L2-L3 and flex/ex showing instability at this level. Dr. Peter is planning for emergent posterior lumbar spinal fusion, Left L2/3 microdiscectomy. At this time patient is critically ill with potential risk of permanent paraplegia. CCT 35 MIN
--- NOTE | 2018-10-02 18:28 | MR ---
EXAM DATE: 10/02/2018 6:12 PM EST AGE/SEX: 73 years / Male INDICATIONS: Pain. Hematoma,patient fall today and had numbness in both legs. CLINICAL DATA: This is the patient's initial encounter. Patient reports that signs and symptoms have been present for 1 day and indicates a pain score of 6/10. MEDICAL/SURGICAL HISTORY: Carcinoma, prostatic. Carotid endarterectomy. [place] [facility] [place] 06/23/2017. . TECHNIQUE: Multiplanar, multisequence MRI examination of the lumbar spine was performed without and with 8 ml Gadavist (gadobutrol) contrast as a single exam dose. FINDINGS: Surgical changes of fusion procedure with posterior instrumentation again noted at L4/L5. There is as sociated magnetic susceptibility artifact. There is solid-appearing bony bridging with unchanged, res idual grade 1 anterolisthesis of L4 on L5. No perceptible epidural hematoma. A large, chronic appearing inferiorly extruded posterior disc fragment is seen at L2/L3. This causes short segment moderate to severe spinal stenosis. There is moderate to severe bilateral foraminal yazan nosis at this level as well. There is 4 mm of degenerative-appearing retrolisthesis at this level, sl ightly worse from the prior CT. Small, broad posterior disc protrusions and moderate bilateral facet osteoarthritis seen at T12/L1, L 1/L2 and L3/L4 and L5/S1 without associated significant foraminal or spinal stenosis. No abnormal enhancement seen. CONCLUSION: 1. No fracture or acute appearing malalignment of the lumbar spine. 2. Grade 1 degenerative retrolisthesis with a large, chronic inferiorly extruded posterior disc frag ment at L2/L3. There is moderate to severe spinal stenosis and moderate to severe bilateral foraminal stenosis at this level. 3. Fusion at L4/L5 with associated magnetic susceptibility artifact. No perceptible acute complicati on at this level. Electronically signed by: Blaise Zarate MD 10/02/2018 6:27 PM EST
--- NOTE | 2018-10-02 19:17 | P.CONNS ---
History of Present Illness Primary Care Provider: Srinivas Mendieta Chief Complaint: Lower extremity weakness History of Present Illness: 73yoM s/p L4/5 fusion 06/2017 ([facility]) who was in his usual state of health until this morning when he got out of bed and could not put weight on his legs, he fell. He heard a pop prior to all of this. He has been numb in his legs and weak since that time, unable to bear weight. Transferred here from outside ED. MRI showing large herniated disc at L2/3 (one level about his prior fusion) and flex/ex showing instability at this level. Denies bowel or bladder incontinence. Has been unable to walk (bear weight). PMF - History History Provided By: Patient - Medical History Medical History: Medical History (Last Reviewed 10/02/18 @ 17:40 by Tyrell Mittal MD) Back pain Colonic polyp GERD (gastroesophageal reflux disease) Hypertension Neuropathy Osteoarthritis Prostate carcinoma - Surgical History Surgical History: Surgical History (Last Reviewed 10/02/18 @ 17:40 by Tyrell Mittal MD) Hx of endarterectomy - Tobacco History Second Hand Smoke Exposure: Yes Tobacco Use In Past 30 Days: Yes Smoking Status: Current every day smoker Tobacco Type: Cigarettes - Alcohol History How Often Do You Have a Drink Containing Alcohol: 2 to 4 times a month - Substance Use History Substance History: No History of Abuse - Travel History Recent Travel in the [place] Within the Last 8 Weeks: No Recent Travel Out of the Country Within the Last 8 Weeks: No - Immunization History Tetanus Immunization: Unsure Medications and Allergies Active Medications: Active Medications Acetaminophen (Tylenol) 650 mg PO Q6H PRN PRN Reason: PAIN 1-10 AND/OR FEVER >101F Al Hydroxide/Mg Hydroxide (Milk Of Padmini Limartha) 30 ml PO Q12H PRN PRN Reason: Mild Constipation Albuterol (Duoneb Neb (Adam)) 1 ampul NEB Q6HR NEB ADAM Albuterol (Albuterol Neb (Prn)) 2.5 mg NEB Q2HR NEB PRN PRN Reason: SHORTNESS OF BREATH/WHEEZING Bisacodyl (Dulcolax Supp) 10 mg RECTAL DAILY PRN PRN Reason: SEVERE CONSITIPATION Chlorhexidine Gluconate (Chlorhexidine 2% Cloth) 3 pack TOPICAL DAILY@0400 [facility] Stop: 10/08/18 03:59 Chlorhexidine Gluconate (Chlorhexidine 2% Cloth) 3 pack TOPICAL DAILY@0400 PRN PRN Reason: Extra cloth needed Stop: 10/08/18 03:59 Famotidine (Pepcid Pf Inj) 20 mg IV.PUSH Q12HR ADAM Sodium Chloride (Ns Inj) 1,000 mls @ 84 mls/hr IV.CONT .[id number] ADAM Lactulose (Lactulose Liq) 30 ml PO DAILY PRN PRN Reason: SEVERE CONSITIPATION Morphine Sulfate (Morphine Inj) 2 mg IV.PUSH Q4H PRN PRN Reason: 6-10 pain Senna/Docusate Sodium (Shazia-Colace) 1 tab PO BID ADAM Sennosides (Senokot) 17.2 mg PO Q12H PRN PRN Reason: Moderate Constipation Allergies Allergy/AdvReac Type Severity Reaction Status Date / Time No Known Allergies Unknown Uncoded 10/27/17 16:04 Home Medications Medication Instructions Recorded Confirmed Type aspirin 81 mg PO DAILY 10/02/18 10/02/18 History citalopram 20 mg PO DAILY 10/02/18 10/02/18 History divalproex 1,500 mg PO DAILY 10/02/18 10/02/18 History gabapentin 300 mg PO BID 10/02/18 10/02/18 History losartan 10 mg PO DAILY 10/02/18 10/02/18 History meloxicam 15 mg PO DAILY 10/02/18 10/02/18 History pantoprazole [Protonix] 40 mg PO DAILY 10/02/18 10/02/18 History Exam Vital signs: Vital Signs 10/02/18 15:09 10/02/18 16:26 10/02/18 17:28 Temperature 97.8 F Pulse Rate 80 70 Respiratory Rate 18 20 Blood Pressure 148/75 H 148/75 H Pulse Oximetry 93 L 91 L 90 L 10/02/18 18:16 10/02/18 18:17 Temperature Pulse Rate 84 84 Respiratory Rate 18 Blood Pressure 132/65 Pulse Oximetry 87 L Intake & Output 10/02/18 10/02/18 10/03/18 06:59 18:59 06:59 Weight 81.647 kg Narrative: A&O x 3 CN II - XII intact Motor 5/5 UE/LE -- LE tests to full strength in bed, but patient unable to bear weight Sensation intact to bedside testing though he endorses diminished sensation in both legs Results - Laboratory Findings CBC and BMP: 10/02/18 16:35 10/02/18 16:35 Abnormal lab findings: Abnormal Labs 10/02/18 10/02/18 16:35 16:35 RBC 3.20 L Hgb 10.2 L Hct 29.6 L RDW 22.3 H Neut % (Auto) 70.1 H [place] % (Auto) 12.2 H BUN 23 H Estimated GFR 57 L Random Glucose 69 L Albumin 2.9 L - Diagnostic Findings Additional findings: MRI L-spine: large herniated disc L2/3, eccentric to right with resultant spinal stenosis L2/3 loss of disc height, instability Assessment and Plan - Plan Code Status: 73yoM with adjacent level disease L2/3 with resultant disc herniation causing severe spinal stenosis. Discussed with Dr. Hansen. Plan for extension of prior fusion from L4/5 up to L2 /3 and discectomy with laminectomy, starting from the right side. Patient understands the risks of paralysis, weakness, spinal fluid leak and wishes to proceed. We will proceed urgently given his neurologic weakness.
[2018-10-02] MEDS ORDERED: HYDROmorphone PF Inj 2 MG/ML Vial ONE (19:24)
[2018-10-02] MEDS ORDERED: fentaNYL Citrate Inj 250 MCG/5 ML Ampul ONE (19:24)
[2018-10-02] MEDS ORDERED: Propofol Inj 500 MG/50 ML Vial ONE (19:24)
[2018-10-02] MEDS ORDERED: Bupivacaine/Epinephrine PF Inj 0.5% 30 ML Vial ONE (19:36)
[2018-10-02] MEDS ORDERED: Lidocaine 1% Inj 50 ML Vial ONE (19:36)
[2018-10-02] MEDS ORDERED: Thrombin Topical Soln 5,000 UNIT Vial TOPICAL ONE (19:37)
[2018-10-02] MEDS ORDERED: Gelatin Size 100 Topical Foam ONE (19:37)
[2018-10-02] MEDS ORDERED: Phenylephrine/NS 1000 MCG/10ML Syringe IV.PUSH ONE (20:11)
[2018-10-02] MEDS ORDERED: Lidocaine PF 1% Inj 5 ML Syringe INFILTRATN ONE (20:11)
[2018-10-02] MEDS ORDERED: ceFAZolin 2 GM Premix Inj 2 GM/50 ML PIGGYBACK IV.SIG ONE (20:14)
[2018-10-02] MEDS: Senna/Docusate Sodium 8.6/50 MG Tablet PO SCH (21:30)
[2018-10-02] MEDS: Famotidine PF Inj 20 MG/2 ML Vial IV.PUSH SCH (21:30)
--- NOTE | 2018-10-03 01:40 | P.OP ---
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 This morning, he awoke with a "pop" in his back and had trouble moving his legs with weakness. Imaging shows a large L2/3 disc eccentric to the right and slight instability at L2/3 secondary to adjacent level disease. Extension of fusion up to L2 with discectomy at Left L2/3 is indicated. Description of Procedure Patient brought to [facility] and intubated. He was placed in the prone position, all pressure points padded. Midline lumbar spine was prepped and draped in the usual sterile fashion. Old incision opened sharply down to spinous process of L2 through L5. Old L2/3 laminectomy defect identified. Old screws at L4/5 identified with fluoroscopy. Metal cutting bur used to cut the steel rods after removing the set screws with the universal set. The screw head claims adjuster crop was used to remove the old screws and new 7.5mm screws x 45mm were placed down the old pedicle tracts. Bilateral L2 and L3 pedicle screws were placed using the awl, drill, tap method. Fluoroscopy used to confirm and reposition right L3 screw. 80mm rods lordotic placed and secured and final tightetened. Left L2 /3 interval addressed and scar removed from epidural space. Exiting nerve root identified and thecal sac retraced medially to identify the L2/3 disc space. Several fragments of disc were removed, ultimately relieving pressure on the thecal sac. In the process, some fluid was noted to be spinal fluid intermixing with blood, likely from a small ventral tear along the nerve root. Tisseal was placed in the dissection cavity with immediate stop of fluid leak. After irrigation, and placement of bone graft along the rods, wound closed tightly in layers with 0-Vicryl and 2-0 Vicryl followed by monocril and dermabond for skin. Plan for admission to [facility] overnight intubated given late finish and 50 pack year smoking history. Plan to keep him down x 24 hours ( unti Friday morning). EBL 350cc, no periprocedural complications.
--- NOTE | 2018-10-03 01:59 | XR ---
EXAM DATE: 10/03/2018 1:55 AM EST AGE/SEX: 73 years / Male INDICATIONS: L2-5 Posterior lumbar fusion. CLINICAL DATA: This is the patient's subsequent encounter. Patient reports that signs and symptoms h ave been present for 2 days and indicates a pain score of Nonresponsive. MEDICAL/SURGICAL HISTORY: Hypertension. Osteoarthritis. Carcinoma, prostatic. GERD. COPD. Sm oker. . Previous lumbar laminectomy. Endarterectomy. COMPARISON: [facility] – [place], LUMBAR SPINE FLX/EXT ONLY, 10/02/2018. . FINDINGS: For magnified C-arm spot images of the lumbar spine show bilateral transpedicular posterior fixation involving L2, L3, L4, and L5. Vertical stabilizer bars noted. Heterotopic bone involving the lateral masses. CONCLUSION: Limited images as detailed above. Electronically signed by: Todd Prater MD 10/03/2018 1:57 AM EST
[2018-10-03] MEDS: Sod Chloride 0.9% Inj 1,000 ML IV.CONT SCH ×4 (02:10→22:50)
[2018-10-03] MEDS: Propofol 1000 mg/100 ml Inj 1,000 MG/100 ML BOTTLE IV.CONT PRN ×4 (03:10→20:29)
[2018-10-03] MEDS: fentaNYL 10 mcg/mL Premix Drip 2,500 MCG/250 ML BAG IV.SIG PRN ×2 (03:12→17:16)
[2018-10-03 03:13] LABS: ABG Base Excess -1.6 mmol/L (-2-2); ABG PCO2 55 mmHg (38-42); ABG PO2 97 mmHg (61-120)
[2018-10-03] MEDS ORDERED: Chlorhexidine Gluconate 2% 1 Pack (2 Cloths) TOPICAL PRN (04:00)
[2018-10-03] MEDS ORDERED: Sod Chloride 0.9% Inj 1,000 ML IV.SIG ONE (04:00)
[2018-10-03] MEDS: Chlorhexidine Gluconate 2% 1 Pack (2 Cloths) TOPICAL SCH (04:10)
[2018-10-03] MEDS: Oral Hygiene Kit OROPHARYNG SCH ×2 (04:10→15:38)
[2018-10-03 05:17] LABS: Baso % (Auto) 0.2 % (0.0-2.0); Hemoglobin 8.3 gm/dL (13.0-17.0); Lymph # (Auto) 0.5 th/mm3 (1.0-4.8); Lymph % (Auto) 4.5 % (9.0-44.0); Mean Corpuscular HGB Conc 31.7 % (32.0-36.0); Mean Corpuscular Hemoglobin 29.8 pg (27.0-34.0); Mean Corpuscular Volume 93.8 fL (80.0-100.0); Mean Platelet Volume 7.3 fL (7.0-11.0); Mono # (Auto) 0.2 th/mm3 (0.0-0.9); Mono % (Auto) 1.4 % (0.0-8.0); Neut # (Auto) 10.5 th/mm3 (1.8-7.7); Neut % (Auto) 93.9 % (16.0-70.0); Platelet Count 319 th/mm3 (150-450); Red Blood Count 2.78 mil/mm3 (4.50-5.90); White Blood Count 11.2 th/mm3 (4.0-11.0)
[2018-10-03 05:42] LABS: Alanine Aminotransferase 16 U/L (12-78); Albumin 2.3 g/dL (3.4-5.0); Anion Gap 12 meq/L (5-15); Aspartate Aminotransferase 26 U/L (15-37); Blood Urea Nitrogen 24 mg/dL (7-18); Calcium 7.9 mg/dL (8.5-10.1); Carbon Dioxide 23.1 meq/L (21.0-32.0); Chloride 104 meq/L (98-107); Glomerular Filtration Rate 49 mL/min (>89); Glucose,Random 175 mg/dL (74-106); Potassium 4.9 meq/L (3.5-5.1); Sodium 139 meq/L (136-145)
[2018-10-03 06:02] LABS: Alkaline Phosphatase 76 U/L (45-117); Total Protein 5.6 g/dL (6.4-8.2)
--- NOTE | 2018-10-03 06:31 | P.PNCC ---
Subjective Subjective Remarks/Hospital Course: Patient is a 73-year-old male with past medical history significant for hypertension, COPD, Prostate carcinoma, history of previous lumbar laminectomy who came to the [place] emergency department as a transfer from transfer from [facility]. He was accepted by neurosurgery Dr. Peter for acute onset bilateral lower extremity weakness. Patient states that he woke up this morning around 6 AM with numbness and weakness of bilateral lower extremity. On attempt to walk he fell on his face due to weakness. Patient states that the strength got slight better since then. CT scan of the lumbar spine large area of soft attenuation attenuation in the ventral epidural space L2-L3 level suspicious for large disc extrusion with spinal canal stenosis with differential diagnosis involving hemorrhage, there is also at least moderate bilateral neural foraminal stenosis. I evaluate the patient in the ED. He complains of weakness more on the left leg which he is unable to lift. There is generalized numbness but he is able to feel my touch. Critical care was requested to admit the patient to the ICU. Discussed with Dr. Mittal ED and Dr. Peter neurosurgery. A stat MRI of the lumbar spine had been ordered. 10/03: Remains intubated sedated. Remains on Levophed at 10 mcg/min to maintain map above 70. Patient is s/p L2 to L5 posterior spinal fusion, Left L2 /3 microdiscectomy. (MRI showed large herniated disc at L2/3 and flex/ex showing instability at this level). On sedation hold patient is moving all 4 extremities. Hb 8.3 will transfuse 1 unit PRBC due to hypotension Objective Vital Signs / I&O: Vital Signs 10/02/18 15:09 10/02/18 16:26 10/02/18 17:28 Temperature 97.8 F Pulse Rate 80 70 Respiratory Rate 18 20 Blood Pressure 148/75 H 148/75 H Pulse Oximetry 93 L 91 L 90 L 10/02/18 18:16 10/02/18 18:17 10/02/18 19:00 Temperature Pulse Rate 84 84 70 Respiratory Rate 18 31 H Blood Pressure 132/65 125/69 Pulse Oximetry 87 L 94 L 10/02/18 19:30 10/02/18 20:00 10/03/18 01:28 Temperature Pulse Rate 71 69 Respiratory Rate 29 H 25 H Blood Pressure 136/65 154/71 H Pulse Oximetry 94 L 95 100 10/03/18 01:29 10/03/18 01:41 10/03/18 01:53 Temperature Pulse Rate 64 65 Respiratory Rate 16 16 Blood Pressure 90/54 L 93/53 L 127/61 Pulse Oximetry 100 100 99 10/03/18 02:00 10/03/18 02:05 10/03/18 02:10 Temperature 97.8 F Pulse Rate 67 65 64 Respiratory Rate 20 20 20 Blood Pressure 123/60 121/59 L Pulse Oximetry 98 96 96 10/03/18 02:20 10/03/18 02:30 10/03/18 02:40 Temperature Pulse Rate 64 62 62 Respiratory Rate 20 20 20 Blood Pressure 130/62 128/61 131/59 L Pulse Oximetry 95 96 96 10/03/18 02:50 10/03/18 03:00 10/03/18 03:08 Temperature Pulse Rate 62 105 H 87 Respiratory Rate 20 26 H 23 Blood Pressure 122/59 L 196/85 H 128/60 Pulse Oximetry 95 93 L 99 10/03/18 03:19 10/03/18 03:20 10/03/18 03:27 Temperature Pulse Rate 99 H 94 H 83 Respiratory Rate 18 22 20 Blood Pressure 132/60 118/55 L 93/47 L Pulse Oximetry 100 100 100 10/03/18 03:29 10/03/18 03:30 10/03/18 03:40 Temperature Pulse Rate 81 79 75 Respiratory Rate 20 20 20 Blood Pressure 76/44 L 99/56 L 130/62 Pulse Oximetry 95 94 L 94 L 10/03/18 03:50 10/03/18 04:00 10/03/18 04:10 Temperature Pulse Rate 71 68 66 Respiratory Rate 20 20 20 Blood Pressure 116/59 L 111/56 L 129/60 Pulse Oximetry 94 L 94 L 95 10/03/18 04:20 10/03/18 04:22 Temperature Pulse Rate 66 68 Respiratory Rate 20 20 Blood Pressure 144/67 H Pulse Oximetry 95 Intake & Output 10/02/18 10/02/18 10/03/18 06:59 18:59 06:59 Intake Total 4050 / 4050 Output Total 550 / 550 Balance 3500 / 3500 Weight 81.647 kg Intake: IV 1050 / 1050 NS Inj 1,000 ML @ As Directed 1000 / 1000 IV.SIG BOLUS ONE Rx#:[id number] Ancef 2 GM Premix Inj 2 gm In 50 / 50 50 ml @ 0 mls/hr IV.SIG .[facility] ONE Rx#:[id number] Oral 0 / 0 Anesthesia Amount 3000 / 3000 Output: Estimated Blood Loss 350 / 350 Urine Amount (Catheter) 200 / 200 Indwelling Urethral Catheter 200 / 200 Result Diagrams: 10/03/18 04:40 10/03/18 04:40 Objective Remarks: GENERAL: Well-nourished, well-developed patient, intubated sedated with propofol fentanyl SKIN: warm/dry. HEAD: Normocephalic. EYES: No injection or drainage. ENT: Patient remains orotracheally intubated NECK: Supple, trachea midline. No JVD or lymphadenopathy. CARDIOVASCULAR: Regular rate and rhythm without murmurs, gallops, or rubs. Remains on Levophed at 10 mcg/min RESPIRATORY: Air entry equal bilaterally no wheezes GASTROINTESTINAL: Abdomen soft, non-tender, nondistended. MUSCULOSKELETAL: No cyanosis, or edema. Neurologic exam: Intubated heavily sedated for vent synchrony. Moves all 4 extremities. 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 Code(s): M47.16 - Other spondylosis with myelopathy, lumbar region Status: Acute (2) Weakness of lower extremity Code(s): R29.898 - Other symptoms and signs involving the musculoskeletal system Status: Acute (3) COPD (chronic obstructive pulmonary disease) Code(s): J44.9 - Chronic obstructive pulmonary disease, unspecified Status: Chronic (4) History of prostate cancer Code(s): Z85.46 - Personal history of malignant neoplasm of prostate Status: Chronic (5) History of hypertension Code(s): Z86.79 - Personal history of other diseases of the circulatory system Status: Chronic - Assessment and Plan Plan: ASSESSMENT: Lumbar cord compression likely secondary to large herniated disc Weakness of bilateral lower extremity/paraparesis Hypotension on pressors Status post lumbar posterior fusion and microdiscectomy Postop respiratory failure Acute on chronic kidney disease Anemia requiring transfusion History of prostate cancer COPD Hypertension PLAN: NEURO: - MRI showing large herniated disc at L2/3 and flex/ex showing instability at this level. -CT LS at the outside hospital showed acute disc protrusion L2-L3 level, causing compression of the spinal cord -s/p emergent L2 to L5 posterior spinal fusion, Left L2/3 microdiscectomy -Keep map above 75-80 to maintain spinal cord perfusion -Spinal cord precautions -Currently well intubated keep on propofol and fentanyl -Initiate daily sedation vacation -Neurosurgery Dr. Peter RESP: -Currently on PRVC/AC -Initiate spontaneous weaning self and extubation -DuoNeb every 6 hours scheduled and as needed -Aggressive pulmonary toilet CV: -Maintain Levophed to keep map above 65 -Normal saline IV fluids 125 mL/h -Avoid hypotension, target map above 75-80 maintain spinal cord perfusion GI: -N.p.o., IV famotidine -Initiate diet after extubation -Bowel regimen : -Monitor renal function closely. -IV hydration as above -Maintain [place], monitor creatinine closely ID: -Perioperative antibiotics per neurosurgery HEME: -Monitor CBC, coags -Transfuse 1 unit PRBC ENDO: -Electrolyte replacement per protocol PROPH: -Bilateral lower extremity SCDs. No chemical DVT prophylaxis due to spinal surgery/famotidine LINES: -Utilize peripheral IVs, central line if needed -PT evaluate and treat Stat MRI shows MRI showing large herniated disc at L2-L3 and flex/ex showing instability at this level. Status post posterior lumbar spinal fusion, Left L2/ 3 microdiscectomy. Remains critically ill on ventilator now, hypotensive requiring Levophed to maintain map above 70. Critically ill but stable CCT 35 MIN
[2018-10-03] MEDS ORDERED: Sodium Chlor 0.9% Inj 250 ML IV.SIG SCH (08:00)
--- NOTE | 2018-10-03 08:52 | P.PCN ---
Date of procedure: 10/03/18 Pre-op diagnosis: Hypotension on pressors Post-op diagnosis: same Procedure: Right subclavian central line Central line checklist completed, timeout completed. I wore a surgical cap, mask with protective eyewear, full gown and sterile gloves throughout the procedure. Right shoulder region was prepped using chlorhexidine scrub and draped in sterile fashion. Anesthesia was achieved over the vein using 1% lidocaine. The introducer needle was inserted into the right subclavian vein and Venous blood was withdrawn. The syringe was removed and a guidewire was advanced into the introducer needle. A small incision was made at the skin surface with a scalpel and the introducer needle was exchanged for a dilator over the guidewire. After appropriate dilation was obtained, the dilator was exchanged over the wire for a triple lumen, 7F, antibiotic coated central venous catheter. The wire was removed and the catheter was secured in place with a StatLock at 18 cm. A sterile central line dressing was placed over the catheter at the insertion site. The patient tolerated the procedure without any hemodynamic compromise. At time of procedure completion, all ports aspirated and flushed properly. Post-procedure chest x-ray is pending at this time. Anesthesia: local Surgeon: Alysa Welsh Estimated blood loss (mL): 1 Pathology: none sent Condition: critical Disposition: ICU
--- NOTE | 2018-10-03 09:15 | XR ---
EXAM DATE: 10/03/2018 9:10 AM EST AGE/SEX: 73 years / Male INDICATIONS: Central line. CLINICAL DATA: This is the patient's subsequent encounter. Patient reports that signs and symptoms h ave been present for 1 day and indicates a pain score of Nonresponsive. MEDICAL/SURGICAL HISTORY: . Hypertension. Osteoarthritis. Carcinoma, prostatic. GERD. COPD. Smo ker. . Previous lumbar laminectomy. Endarterectomy. . COMPARISON: [facility] [place] CHEST 1V SINGLE AP, 10/02/2018. . FINDINGS: Endotracheal tube at the inferior margin the clavicles. Right subclavian line is seen in the catheter tip projects over the expected location of the right atrium. There is mild interstitial prominence b ut no consolidation. Degenerative changes of the spine are seen. I do not see a pneumothorax on this portable film. CONCLUSION: Right subclavian line placement. Electronically signed by: Saravanan Knight MD 10/03/2018 9:14 AM EST
--- NOTE | 2018-10-03 09:17 | P.PNNS ---
Subjective Interval history: Following commands x 4, still intubated from overnight and sedated subsequently Physical Exam Vital signs: Vital Signs 10/02/18 15:09 10/02/18 16:26 10/02/18 17:28 Temperature 97.8 F Pulse Rate 80 70 Respiratory Rate 18 20 Blood Pressure 148/75 H 148/75 H Pulse Oximetry 93 L 91 L 90 L 10/02/18 18:16 10/02/18 18:17 10/02/18 19:00 Temperature Pulse Rate 84 84 70 Respiratory Rate 18 31 H Blood Pressure 132/65 125/69 Pulse Oximetry 87 L 94 L 10/02/18 19:30 10/02/18 20:00 10/03/18 01:28 Temperature Pulse Rate 71 69 Respiratory Rate 29 H 25 H Blood Pressure 136/65 154/71 H Pulse Oximetry 94 L 95 100 10/03/18 01:29 10/03/18 01:41 10/03/18 01:50 Temperature Pulse Rate 64 Respiratory Rate 16 20 Blood Pressure 90/54 L 93/53 L Pulse Oximetry 100 100 98 10/03/18 01:53 10/03/18 02:00 10/03/18 02:05 Temperature 97.8 F Pulse Rate 65 67 65 Respiratory Rate 16 20 20 Blood Pressure 127/61 123/60 Pulse Oximetry 99 98 96 10/03/18 02:10 10/03/18 02:20 10/03/18 02:30 Temperature Pulse Rate 64 64 62 Respiratory Rate 20 20 20 Blood Pressure 121/59 L 130/62 128/61 Pulse Oximetry 96 95 96 10/03/18 02:40 10/03/18 02:50 10/03/18 03:00 Temperature Pulse Rate 62 62 105 H Respiratory Rate 20 20 26 H Blood Pressure 131/59 L 122/59 L 196/85 H Pulse Oximetry 96 95 93 L 10/03/18 03:08 10/03/18 03:19 10/03/18 03:20 Temperature Pulse Rate 87 99 H 94 H Respiratory Rate 23 18 22 Blood Pressure 128/60 132/60 118/55 L Pulse Oximetry 99 100 100 10/03/18 03:27 10/03/18 03:29 10/03/18 03:30 Temperature Pulse Rate 83 81 79 Respiratory Rate 20 20 20 Blood Pressure 93/47 L 76/44 L 99/56 L Pulse Oximetry 100 95 94 L 10/03/18 03:40 10/03/18 03:50 10/03/18 04:00 Temperature Pulse Rate 75 71 68 Respiratory Rate 20 20 20 Blood Pressure 130/62 116/59 L 111/56 L Pulse Oximetry 94 L 94 L 94 L 10/03/18 04:10 10/03/18 04:20 10/03/18 04:22 Temperature Pulse Rate 66 66 68 Respiratory Rate 20 20 20 Blood Pressure 129/60 144/67 H Pulse Oximetry 95 95 10/03/18 04:30 10/03/18 04:45 10/03/18 05:00 Temperature 97.8 F Pulse Rate 64 73 68 Respiratory Rate 20 20 20 Blood Pressure 113/51 L Pulse Oximetry 94 L 100 97 10/03/18 05:15 10/03/18 05:30 10/03/18 05:45 Temperature Pulse Rate 64 63 63 Respiratory Rate 20 20 20 Blood Pressure Pulse Oximetry 97 97 97 10/03/18 06:00 10/03/18 06:15 10/03/18 06:24 Temperature Pulse Rate 63 63 Respiratory Rate 20 20 20 Blood Pressure Pulse Oximetry 97 97 98 10/03/18 06:30 10/03/18 07:55 10/03/18 07:56 Temperature Pulse Rate 63 63 Respiratory Rate 20 20 20 Blood Pressure Pulse Oximetry 97 97 Intake & Output 10/02/18 10/03/18 10/03/18 18:59 06:59 18:59 Intake Total 4050 / 4050 Output Total 850 / 850 Balance 3200 / 3200 Weight 81.647 kg 84.3 kg Intake: IV 1050 / 1050 NS Inj 1,000 ML @ As Directed 1000 / 1000 IV.SIG BOLUS ONE Rx#:[id number] Ancef 2 GM Premix Inj 2 gm In 50 / 50 50 ml @ 0 mls/hr IV.SIG .[facility] ONE Rx#:[id number] Oral 0 / 0 Anesthesia Amount 3000 / 3000 Output: Estimated Blood Loss 350 / 350 Urine Amount (Catheter) 500 / 500 Indwelling Urethral Catheter 500 / 500 - Urinary Catheter Management Indwelling Urethral Catheter Cath placed during this visit: yes Reason for continuing: Hourly intake/output Insertion date: 10/02/18 Insertion time: 20:32 Assessment and Plan - Plan 73yoM pod#1 L2-5 revision fusion and left L2/3 discectomy MRI L-spine today while sedated to check for residual disc If ok, extubate and mobilize tomorrow morning (Kathy) D/w Dr. Welsh
[2018-10-03] MEDS: Chlorhexidine 0.12% Oral Kit 15 ML UDC OROPHARYNG SCH ×2 (09:31→20:27)
[2018-10-03] MEDS: Senna/Docusate Sodium 8.6/50 MG Tablet PO SCH ×2 (10:48→20:27)
[2018-10-03] MEDS: Famotidine PF Inj 20 MG/2 ML Vial IV.PUSH SCH ×2 (10:48→20:27)
[2018-10-03] MEDS ORDERED: Gadobutrol PF 10 MMOL/10 ML Vial (for RAD) IV.SIG ONE (11:42)
--- NOTE | 2018-10-03 12:18 | MR ---
EXAM DATE: 10/03/2018 12:10 PM EST AGE/SEX: 73 years / Male INDICATIONS: . Post surgical pain. CLINICAL DATA: This is the patient's initial encounter. Patient reports that signs and symptoms have been present for 1 day and indicates a pain score of 5/10. MEDICAL/SURGICAL HISTORY: Carcinoma, prostatic. Hypertension. Fusion, lumbar. Carotid endarte rectomy. [place] [facility] [place]. [facility] [place] AP&LAT[place]/02/2018. . TECHNIQUE: Multiplanar, multisequence MRI examination of the lumbar spine was performed without and with 8 ml Gadavist (gadobutrol) contrast as a single exam dose. FINDINGS: The patient has had remote intervertebral fusion at L4-5 with solid fusion across the disc space. Gra de 1 anterolisthesis of L4 on L5 is noted. There is grade 1 retrolisthesis of L2 on L3. Diffuse disc desiccation is noted. The conus is unremarkable. There is fluid seen within the posterior spinal soft tissues from recent surgery and revision of the fixation hardware. Susceptibility artifact is noted from spinal fixation posterior lucia and transpedicular screw fixation hardware placement from L2 throu gh L5. Laminectomy changes are seen. T12-L1: The thecal sac has a normal diameter. No evidence of disc bulge or protrusion. The neural foramina are patent bilaterally. L1-L2: Mild diffuse disc bulge with no canal or foraminal narrowing. Mild facet hypertrophy. L2-L3: Large central disc protrusion is noted demonstrating mass effect on the ventral nerve roots within the thecal sac and moderate to severe canal stenosis. There is evidence of left hemilaminectom y for microdiscectomy. There is associated T2 hyperintensity along this defect. There is severe left, moderate right foraminal narrowing. There is mild mass effect on the L2 exiting nerve on the left. T here is increased T2 signal within the posterior aspect of the intervertebral disc space. Sagittal T2 images demonstrate disc material extending slightly below the disc space level. L3-L4: Facet arthropathy with no canal or foraminal narrowing. L4-L5: The thecal sac has a normal diameter. No evidence of disc bulge or protrusion. The neural foramina are patent bilaterally. L5-S1: The thecal sac has a normal diameter. No evidence of disc bulge or protrusion. The neural foramina are patent bilaterally. CONCLUSION: 1. Degenerative changes and postsurgical changes are seen with disc protrusion at L2-3 resulting in canal and foraminal stenosis. Electronically signed by: Saravanan Knight MD 10/03/2018 12:17 PM EST
[2018-10-04] MEDS: Oral Hygiene Kit OROPHARYNG SCH ×4 (01:07→16:33)
[2018-10-04] MEDS: Chlorhexidine Gluconate 2% 1 Pack (2 Cloths) TOPICAL SCH (04:22)
[2018-10-04] MEDS: Propofol 1000 mg/100 ml Inj 1,000 MG/100 ML BOTTLE IV.CONT PRN ×3 (04:23→16:34)
[2018-10-04 04:24] LABS: Hematocrit 22.6 % (39.0-51.0); Hemoglobin 7.4 gm/dL (13.0-17.0); Mean Corpuscular HGB Conc 32.9 % (32.0-36.0); Mean Corpuscular Hemoglobin 30.7 pg (27.0-34.0); Mean Corpuscular Volume 93.4 fL (80.0-100.0); Mean Platelet Volume 7.1 fL (7.0-11.0); Platelet Count 295 th/mm3 (150-450); Red Blood Count 2.42 mil/mm3 (4.50-5.90); White Blood Count 9.1 th/mm3 (4.0-11.0)
[2018-10-04] MEDS: fentaNYL 10 mcg/mL Premix Drip 2,500 MCG/250 ML BAG IV.SIG PRN ×2 (04:35→16:33)
[2018-10-04 04:48] LABS: Albumin 2.2 g/dL (3.4-5.0); Calcium 7.4 mg/dL (8.5-10.1); Carbon Dioxide 23.1 meq/L (21.0-32.0); Magnesium 1.9 mg/dL (1.5-2.5); Potassium 4.3 meq/L (3.5-5.1); Total Protein 5.2 g/dL (6.4-8.2)
[2018-10-04] MEDS: Sod Chloride 0.9% Inj 1,000 ML IV.CONT SCH ×3 (06:44→23:11)
--- NOTE | 2018-10-04 06:45 | XR ---
EXAM DATE: 10/04/2018 6:02 AM EST AGE/SEX: 73 years / Male INDICATIONS: Painful respiration. CLINICAL DATA: This is the patient's subsequent encounter. Patient reports that signs and symptoms h ave been present for 3 days and indicates a pain score of Nonresponsive. MEDICAL/SURGICAL HISTORY: Hypertension. Osteoarthritis. Carcinoma, prostatic. Smoker. COPD. GERD. Fusion, lumbar. Endarterectomy. Previous lumbar laminectomy. [place] [facility] [place]. . FINDINGS: A single AP view of the chest demonstrates low lung volumes with mild bibasilar atelectasis. No discr ete infiltrates or effusions. Heart is normal in size. Endotracheal tube tip 5 cm from the jessica. Ti p of the NG tube in the region of the body the stomach. Right subclavian central line. No pneumothora x. CONCLUSION: Low lung volumes with mild bibasilar atelectasis. Electronically signed by: Todd Prater MD 10/04/2018 6:44 AM EST
[2018-10-04 07:31] LABS: ABG Base Excess -2.7 mmol/L (-2-2); ABG PCO2 44 mmHg (38-42); ABG PO2 82 mmHg (61-120)
--- NOTE | 2018-10-04 08:04 | P.PNNS ---
Subjective Interval history: Stable intubated Physical Exam Vital signs: Vital Signs 10/03/18 08:15 10/03/18 08:30 10/03/18 08:45 Temperature Pulse Rate 70 67 71 Respiratory Rate 20 20 36 H Blood Pressure Pulse Oximetry 97 97 96 10/03/18 09:00 10/03/18 09:15 10/03/18 09:30 Temperature 96.5 F L Pulse Rate 67 66 65 Respiratory Rate 20 20 20 Blood Pressure Pulse Oximetry 97 98 97 10/03/18 09:45 10/03/18 10:00 10/03/18 10:15 Temperature Pulse Rate 64 64 64 Respiratory Rate 20 20 20 Blood Pressure Pulse Oximetry 98 98 97 10/03/18 10:30 10/03/18 10:45 10/03/18 11:00 Temperature Pulse Rate 64 63 64 Respiratory Rate 20 20 20 Blood Pressure Pulse Oximetry 98 98 99 10/03/18 11:15 10/03/18 12:00 10/03/18 12:08 Temperature Pulse Rate 63 Respiratory Rate 20 20 Blood Pressure Pulse Oximetry 95 99 10/03/18 12:15 10/03/18 12:26 10/03/18 12:29 Temperature Pulse Rate 63 62 64 Respiratory Rate 13 20 20 Blood Pressure 69/43 L 173/76 H Pulse Oximetry 100 92 L 96 10/03/18 12:30 10/03/18 12:45 10/03/18 13:00 Temperature Pulse Rate 61 61 61 Respiratory Rate 20 20 20 Blood Pressure Pulse Oximetry 97 94 L 95 10/03/18 13:15 10/03/18 13:30 10/03/18 13:45 Temperature Pulse Rate 61 60 60 Respiratory Rate 20 20 20 Blood Pressure Pulse Oximetry 95 95 96 10/03/18 14:00 10/03/18 14:15 10/03/18 14:30 Temperature Pulse Rate 60 59 L 59 L Respiratory Rate 20 20 20 Blood Pressure Pulse Oximetry 96 96 96 10/03/18 14:45 10/03/18 15:00 10/03/18 15:15 Temperature Pulse Rate 59 L 59 L 58 L Respiratory Rate 20 20 20 Blood Pressure Pulse Oximetry 97 97 97 10/03/18 15:30 10/03/18 15:45 10/03/18 16:00 Temperature 97.5 F L Pulse Rate 57 L 57 L 57 L Respiratory Rate 20 20 20 Blood Pressure Pulse Oximetry 97 97 97 10/03/18 16:15 10/03/18 16:30 10/03/18 16:45 Temperature Pulse Rate 56 L 57 L 57 L Respiratory Rate Blood Pressure Pulse Oximetry 97 97 97 10/03/18 17:00 10/03/18 17:15 10/03/18 17:24 Temperature Pulse Rate 56 L 57 L 56 L Respiratory Rate 20 Blood Pressure Pulse Oximetry 97 97 10/03/18 17:25 10/03/18 17:30 10/03/18 17:45 Temperature Pulse Rate 57 L 58 L Respiratory Rate 20 Blood Pressure Pulse Oximetry 97 97 97 10/03/18 18:00 10/03/18 18:15 10/03/18 18:30 Temperature Pulse Rate 58 L 58 L 58 L Respiratory Rate Blood Pressure Pulse Oximetry 97 97 97 10/03/18 18:45 10/03/18 19:00 10/03/18 19:15 Temperature Pulse Rate 58 L 57 L 57 L Respiratory Rate Blood Pressure Pulse Oximetry 97 98 98 10/03/18 19:30 10/03/18 19:45 10/03/18 19:52 Temperature Pulse Rate 57 L 56 L 57 L Respiratory Rate 20 Blood Pressure Pulse Oximetry 98 99 10/03/18 19:54 10/03/18 20:00 10/03/18 20:15 Temperature 97.9 F Pulse Rate 58 L 60 Respiratory Rate 20 20 Blood Pressure Pulse Oximetry 98 96 98 10/03/18 20:30 10/03/18 20:45 10/03/18 21:00 Temperature Pulse Rate 60 60 60 Respiratory Rate Blood Pressure Pulse Oximetry 98 99 99 10/03/18 21:15 10/03/18 21:30 10/03/18 21:45 Temperature Pulse Rate 61 62 60 Respiratory Rate Blood Pressure Pulse Oximetry 100 96 97 10/03/18 22:00 10/03/18 22:15 10/03/18 22:30 Temperature Pulse Rate 59 L 58 L 59 L Respiratory Rate Blood Pressure Pulse Oximetry 97 98 98 10/03/18 22:45 10/03/18 23:00 10/03/18 23:15 Temperature Pulse Rate 58 L 58 L 58 L Respiratory Rate Blood Pressure Pulse Oximetry 98 98 99 10/03/18 23:30 10/03/18 23:45 10/03/18 23:58 Temperature Pulse Rate 58 L 58 L Respiratory Rate 20 Blood Pressure Pulse Oximetry 98 98 98 10/04/18 00:00 10/04/18 00:15 10/04/18 00:30 Temperature 98.5 F Pulse Rate 58 L 57 L 57 L Respiratory Rate 20 Blood Pressure Pulse Oximetry 99 98 98 10/04/18 00:45 10/04/18 01:00 10/04/18 01:15 Temperature Pulse Rate 59 L 57 L 57 L Respiratory Rate Blood Pressure Pulse Oximetry 99 98 99 10/04/18 01:30 10/04/18 01:45 10/04/18 02:00 Temperature Pulse Rate 58 L 58 L 58 L Respiratory Rate Blood Pressure Pulse Oximetry 99 99 99 10/04/18 02:15 10/04/18 02:30 10/04/18 02:45 Temperature Pulse Rate 58 L 58 L 59 L Respiratory Rate Blood Pressure Pulse Oximetry 98 98 98 10/04/18 03:00 10/04/18 03:15 10/04/18 03:30 Temperature Pulse Rate 59 L 59 L 59 L Respiratory Rate Blood Pressure Pulse Oximetry 98 98 97 10/04/18 03:45 10/04/18 03:57 10/04/18 03:58 Temperature Pulse Rate 59 L 59 L Respiratory Rate 20 20 Blood Pressure Pulse Oximetry 97 96 10/04/18 04:00 10/04/18 04:15 10/04/18 04:30 Temperature 99.1 F Pulse Rate 59 L 60 62 Respiratory Rate 20 Blood Pressure Pulse Oximetry 97 97 97 10/04/18 04:45 10/04/18 05:00 10/04/18 05:15 Temperature Pulse Rate 61 60 60 Respiratory Rate Blood Pressure Pulse Oximetry 97 97 97 10/04/18 05:16 10/04/18 05:30 10/04/18 05:33 Temperature 99.1 F 98.8 F Pulse Rate 59 L 60 60 Respiratory Rate 20 20 Blood Pressure Pulse Oximetry 97 98 98 10/04/18 05:45 10/04/18 06:00 10/04/18 06:10 Temperature Pulse Rate 60 60 59 L Respiratory Rate 20 Blood Pressure Pulse Oximetry 98 98 96 10/04/18 06:15 10/04/18 06:30 Temperature Pulse Rate 58 L 59 L Respiratory Rate Blood Pressure Pulse Oximetry 98 96 Intake & Output 10/03/18 10/04/18 10/04/18 18:59 06:59 18:59 Intake Total 1949 2300 / 2300 Output Total 350 / 350 Balance 1949 Weight 83.7 kg Intake: IV 1949 1700 / 1700 Diprivan 1000 mg/100 ml Inj 1, 200 / 200 200 / 200 000 mg In 100 ml @ 5 MCG/KG/MIN 2.449 mls/hr IV.CONT TITRATE PRN Rx#:[id number] NS Inj 1,000 ML @ 84 mls/hr IV. 1000 / 1000 1000 / 1000 CONT .[id number] Rx#:[id number] Levophed-Dextrose 4 mg/250 ml 500 / 500 250 / 250 Drip 4 mg In 250 ml @ 2 MCG/MIN 7.5 mls/hr IV.SIG TITRATE PRN Rx#:[id number] fentaNYL 10 mcg/mL Premix Drip 250 / 250 250 / 250 2,500 mcg In 250 ml @ 50 MCG/HR 5 mls/hr IV.SIG TITRATE PRN Rx #:[id number] Oral 0 / 0 Other 200 / 200 Rbc As-3 Leukoreduced Unit 200 / 200 [id number] Intake (Blood Product) Amt 400 / 400 Rbc As-3 Leukoreduced Unit 400 / 400 [id number] Output: Urine Amount (Catheter) 350 / 350 Indwelling Urethral Catheter 350 / 350 Narrative: Intubated PERRL Moves x 4, sedated - Urinary Catheter Management Indwelling Urethral Catheter Cath placed during this visit: yes Reason for continuing: Hourly intake/output Insertion date: 10/02/18 Insertion time: 20:32 Assessment and Plan - Plan 73yoM po (o112/02/17) L2-5 revision fusion and left L2/3 discectomy Plan for surgery today to remove residual disc at L2/3 based on post-op MRI Extubate afterward and mobilize
--- NOTE | 2018-10-04 08:10 | P.PNCC ---
Subjective Subjective Remarks/Hospital Course: Patient is a 73-year-old male with past medical history significant for hypertension, COPD, Prostate carcinoma, history of previous lumbar laminectomy who came to the [place] emergency department as a transfer from transfer from [facility]. He was accepted by neurosurgery Dr. Peter for acute onset bilateral lower extremity weakness. Patient states that he woke up this morning around 6 AM with numbness and weakness of bilateral lower extremity. On attempt to walk he fell on his face due to weakness. Patient states that the strength got slight better since then. CT scan of the lumbar spine large area of soft attenuation attenuation in the ventral epidural space L2-L3 level suspicious for large disc extrusion with spinal canal stenosis with differential diagnosis involving hemorrhage, there is also at least moderate bilateral neural foraminal stenosis. I evaluate the patient in the ED. He complains of weakness more on the left leg which he is unable to lift. There is generalized numbness but he is able to feel my touch. Critical care was requested to admit the patient to the ICU. Discussed with Dr. Mittal ED and Dr. Peter neurosurgery. A stat MRI of the lumbar spine had been ordered. 10/03: Remains intubated sedated. Remains on Levophed at 10 mcg/min to maintain map above 70. Patient is s/p L2 to L5 posterior spinal fusion, Left L2 /3 microdiscectomy. (MRI showed large herniated disc at L2/3 and flex/ex showing instability at this level). On sedation hold patient is moving all 4 extremities. Hb 8.3 will transfuse 1 unit PRBC due to hypotension 10/04: Remains intubated sedated remains on 8 mcg/min of Levophed to maintain map above 75. Transfusing 1 unit PRBC for hemoglobin 7.4. post-op MRI with significant disc herniation at L2/3. Scheduled for surgery today with Dr. Peter Objective Vital Signs / I&O: Vital Signs 10/03/18 08:00 10/03/18 08:15 10/03/18 08:30 Temperature Pulse Rate 82 70 67 Respiratory Rate 20 20 20 Blood Pressure 156/69 H Pulse Oximetry 95 97 97 10/03/18 08:45 10/03/18 09:00 10/03/18 09:15 Temperature 96.5 F L Pulse Rate 71 67 66 Respiratory Rate 36 H 20 20 Blood Pressure Pulse Oximetry 96 97 98 10/03/18 09:30 10/03/18 09:45 10/03/18 10:00 Temperature Pulse Rate 65 64 64 Respiratory Rate 20 20 20 Blood Pressure Pulse Oximetry 97 98 98 10/03/18 10:15 10/03/18 10:30 10/03/18 10:45 Temperature Pulse Rate 64 64 63 Respiratory Rate 20 20 20 Blood Pressure Pulse Oximetry 97 98 98 10/03/18 11:00 10/03/18 11:15 10/03/18 12:00 Temperature Pulse Rate 64 63 Respiratory Rate 20 20 20 Blood Pressure Pulse Oximetry 99 95 10/03/18 12:08 10/03/18 12:15 10/03/18 12:26 Temperature Pulse Rate 63 62 Respiratory Rate 13 20 Blood Pressure 69/43 L Pulse Oximetry 99 100 92 L 10/03/18 12:29 10/03/18 12:30 10/03/18 12:45 Temperature Pulse Rate 64 61 61 Respiratory Rate 20 20 20 Blood Pressure 173/76 H Pulse Oximetry 96 97 94 L 10/03/18 13:00 10/03/18 13:15 10/03/18 13:30 Temperature Pulse Rate 61 61 60 Respiratory Rate 20 20 20 Blood Pressure Pulse Oximetry 95 95 95 10/03/18 13:45 10/03/18 14:00 10/03/18 14:15 Temperature Pulse Rate 60 60 59 L Respiratory Rate 20 20 20 Blood Pressure Pulse Oximetry 96 96 96 10/03/18 14:30 10/03/18 14:45 10/03/18 15:00 Temperature Pulse Rate 59 L 59 L 59 L Respiratory Rate 20 20 20 Blood Pressure Pulse Oximetry 96 97 97 10/03/18 15:15 10/03/18 15:30 10/03/18 15:45 Temperature Pulse Rate 58 L 57 L 57 L Respiratory Rate 20 20 20 Blood Pressure Pulse Oximetry 97 97 97 10/03/18 16:00 10/03/18 16:15 10/03/18 16:30 Temperature 97.5 F L Pulse Rate 57 L 56 L 57 L Respiratory Rate 20 Blood Pressure Pulse Oximetry 97 97 97 10/03/18 16:45 10/03/18 17:00 10/03/18 17:15 Temperature Pulse Rate 57 L 56 L 57 L Respiratory Rate Blood Pressure Pulse Oximetry 97 97 97 10/03/18 17:24 10/03/18 17:25 10/03/18 17:30 Temperature Pulse Rate 56 L 57 L Respiratory Rate 20 20 Blood Pressure Pulse Oximetry 97 97 10/03/18 17:45 10/03/18 18:00 10/03/18 18:15 Temperature Pulse Rate 58 L 58 L 58 L Respiratory Rate Blood Pressure Pulse Oximetry 97 97 97 10/03/18 18:30 10/03/18 18:45 10/03/18 19:00 Temperature Pulse Rate 58 L 58 L 57 L Respiratory Rate Blood Pressure Pulse Oximetry 97 97 98 10/03/18 19:15 10/03/18 19:30 10/03/18 19:45 Temperature Pulse Rate 57 L 57 L 56 L Respiratory Rate Blood Pressure Pulse Oximetry 98 98 99 10/03/18 19:52 10/03/18 19:54 10/03/18 20:00 Temperature 97.9 F Pulse Rate 57 L 58 L Respiratory Rate 20 20 20 Blood Pressure Pulse Oximetry 98 96 10/03/18 20:15 10/03/18 20:30 10/03/18 20:45 Temperature Pulse Rate 60 60 60 Respiratory Rate Blood Pressure Pulse Oximetry 98 98 99 10/03/18 21:00 10/03/18 21:15 10/03/18 21:30 Temperature Pulse Rate 60 61 62 Respiratory Rate Blood Pressure Pulse Oximetry 99 100 96 10/03/18 21:45 10/03/18 22:00 10/03/18 22:15 Temperature Pulse Rate 60 59 L 58 L Respiratory Rate Blood Pressure Pulse Oximetry 97 97 98 10/03/18 22:30 10/03/18 22:45 10/03/18 23:00 Temperature Pulse Rate 59 L 58 L 58 L Respiratory Rate Blood Pressure Pulse Oximetry 98 98 98 10/03/18 23:15 10/03/18 23:30 10/03/18 23:45 Temperature Pulse Rate 58 L 58 L 58 L Respiratory Rate Blood Pressure Pulse Oximetry 99 98 98 10/03/18 23:58 10/04/18 00:00 10/04/18 00:15 Temperature 98.5 F Pulse Rate 58 L 57 L Respiratory Rate 20 20 Blood Pressure Pulse Oximetry 98 99 98 10/04/18 00:30 10/04/18 00:45 10/04/18 01:00 Temperature Pulse Rate 57 L 59 L 57 L Respiratory Rate Blood Pressure Pulse Oximetry 98 99 98 10/04/18 01:15 10/04/18 01:30 10/04/18 01:45 Temperature Pulse Rate 57 L 58 L 58 L Respiratory Rate Blood Pressure Pulse Oximetry 99 99 99 10/04/18 02:00 10/04/18 02:15 10/04/18 02:30 Temperature Pulse Rate 58 L 58 L 58 L Respiratory Rate Blood Pressure Pulse Oximetry 99 98 98 10/04/18 02:45 10/04/18 03:00 10/04/18 03:15 Temperature Pulse Rate 59 L 59 L 59 L Respiratory Rate Blood Pressure Pulse Oximetry 98 98 98 10/04/18 03:30 10/04/18 03:45 10/04/18 03:57 Temperature Pulse Rate 59 L 59 L 59 L Respiratory Rate 20 Blood Pressure Pulse Oximetry 97 97 10/04/18 03:58 10/04/18 04:00 10/04/18 04:15 Temperature 99.1 F Pulse Rate 59 L 60 Respiratory Rate 20 20 Blood Pressure Pulse Oximetry 96 97 97 10/04/18 04:30 10/04/18 04:45 10/04/18 05:00 Temperature Pulse Rate 62 61 60 Respiratory Rate Blood Pressure Pulse Oximetry 97 97 97 10/04/18 05:15 10/04/18 05:16 10/04/18 05:30 Temperature 99.1 F Pulse Rate 60 59 L 60 Respiratory Rate 20 Blood Pressure Pulse Oximetry 97 97 98 10/04/18 05:33 10/04/18 05:45 10/04/18 06:00 Temperature 98.8 F Pulse Rate 60 60 60 Respiratory Rate 20 Blood Pressure Pulse Oximetry 98 98 98 10/04/18 06:10 10/04/18 06:15 10/04/18 06:30 Temperature Pulse Rate 59 L 58 L 59 L Respiratory Rate 20 Blood Pressure Pulse Oximetry 96 98 96 Intake & Output 10/03/18 10/04/18 10/04/18 18:59 06:59 18:59 Intake Total 1949 2300 / 2300 Output Total 350 / 350 Balance 1949 Weight 83.7 kg Intake: IV 1949 1700 / 1700 Diprivan 1000 mg/100 ml Inj 1, 200 / 200 200 / 200 000 mg In 100 ml @ 5 MCG/KG/MIN 2.449 mls/hr IV.CONT TITRATE PRN Rx#:[id number] NS Inj 1,000 ML @ 84 mls/hr IV. 1000 / 1000 1000 / 1000 CONT .[id number] [facility] Rx#:[id number] Levophed-Dextrose 4 mg/250 ml 500 / 500 250 / 250 Drip 4 mg In 250 ml @ 2 MCG/MIN 7.5 mls/hr IV.SIG TITRATE PRN Rx#:[id number] fentaNYL 10 mcg/mL Premix Drip 250 / 250 250 / 250 2,500 mcg In 250 ml @ 50 MCG/HR 5 mls/hr IV.SIG TITRATE PRN Rx #:[id number] Oral 0 / 0 Other 200 / 200 Rbc As-3 Leukoreduced Unit 200 / 200 [id number] Intake (Blood Product) Amt 400 / 400 Rbc As-3 Leukoreduced Unit 400 / 400 [id number] Output: Urine Amount (Catheter) 350 / 350 Indwelling Urethral Catheter 350 / 350 Result Diagrams: 10/04/18 04:00 10/04/18 04:00 Objective Remarks: GENERAL: Well-nourished, well-developed patient, intubated sedated with propofol fentanyl SKIN: warm/dry. HEAD: Normocephalic. EYES: No injection or drainage. ENT: Patient remains orotracheally intubated NECK: Supple, trachea midline. No JVD or lymphadenopathy. CARDIOVASCULAR: Regular rate and rhythm without murmurs, gallops, or rubs. Remains on Levophed at 10 mcg/min RESPIRATORY: Air entry equal bilaterally no wheezes. Bilateral chest indicating COPD GASTROINTESTINAL: Abdomen soft, non-tender, nondistended. MUSCULOSKELETAL: No cyanosis, or edema. Neurologic exam: Intubated heavily sedated for vent synchrony. Moves all 4 extremities. 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 Code(s): M47.16 - Other spondylosis with myelopathy, lumbar region Status: Acute (2) Weakness of lower extremity Code(s): R29.898 - Other symptoms and signs involving the musculoskeletal system Status: Acute (3) COPD (chronic obstructive pulmonary disease) Code(s): J44.9 - Chronic obstructive pulmonary disease, unspecified Status: Chronic (4) History of prostate cancer Code(s): Z85.46 - Personal history of malignant neoplasm of prostate Status: Chronic (5) History of hypertension Code(s): Z86.79 - Personal history of other diseases of the circulatory system Status: Chronic - Assessment and Plan Plan: ASSESSMENT: Lumbar cord compression likely secondary to large herniated disc Weakness of bilateral lower extremity/paraparesis Hypotension on pressors Status post lumbar posterior fusion and microdiscectomy Postop respiratory failure Acute on chronic kidney disease Anemia requiring transfusion History of prostate cancer COPD History of hypertension PLAN: NEURO: -MRI showing large herniated disc at L2/3 and flex/ex showing instability at this level. -s/p emergent L2 to L5 posterior spinal fusion, Left L2/3 microdiscectomy -post-op MRI with significant disc herniation at L2/3 despite resection, plan for OR today. D/w Daughter and OR, scheduled for surgery tomorrow 8 AM. Hardware looks good and stable. He will remain intubated overnight. -Spinal precautions -Currently well intubated keep on propofol and fentanyl -Initiate daily sedation vacation after surgery -Neurosurgery Dr. Peter RESP: -Currently on PRVC/AC -Initiate spontaneous weaning trial after surgery today -DuoNeb every 6 hours scheduled and as needed -Aggressive pulmonary toilet CV: -Maintain Levophed to keep map above 65 -Normal saline IV fluids 125 mL/h -Avoid hypotension GI: -N.p.o., IV famotidine -Initiate diet after extubation -Bowel regimen : -Monitor renal function closely. -IV hydration as above -Maintain [place], monitor creatinine closely ID: -Perioperative antibiotics per neurosurgery HEME: -Monitor CBC, coags -Transfuse 1 unit PRBC ENDO: -Electrolyte replacement per protocol PROPH: -Bilateral lower extremity SCDs. No chemical DVT prophylaxis due to spinal surgery/famotidine LINES: -Utilize peripheral IVs, central line if needed -PT evaluate and treat Going to or today as above remains critical at this time CCT 35 MIN
[2018-10-04] MEDS ORDERED: Propofol Inj 500 MG/50 ML Vial ONE (08:27)
[2018-10-04] MEDS: Famotidine PF Inj 20 MG/2 ML Vial IV.PUSH SCH ×2 (08:48→22:15)
[2018-10-04] MEDS: Senna/Docusate Sodium 8.6/50 MG Tablet PO SCH ×2 (08:48→21:11)
[2018-10-04] MEDS: Chlorhexidine 0.12% Oral Kit 15 ML UDC OROPHARYNG SCH ×2 (08:48→21:11)
[2018-10-04] MEDS ORDERED: Thrombin Topical Soln 5,000 UNIT Vial TOPICAL ONE (08:49)
[2018-10-04] MEDS ORDERED: Gelatin Size 100 Topical Foam ONE (08:50)
[2018-10-04] MEDS ORDERED: Lidocaine 1%/Epinephrine 1:100,000 Inj 50 ML Vial ONE (09:00)
[2018-10-04] MEDS ORDERED: ceFAZolin 2 GM Premix Inj 2 GM/50 ML PIGGYBACK IV.SIG ONE (10:09)
--- NOTE | 2018-10-04 10:18 | ECG ---
Date Performed: 10/04/2018 Time Performed: 01:27:32 PTAGE: 73 years EKG: Sinus bradycardia Normal ECG except for rate No significant change from prior electrocardio gram. DOCTOR: Andre Gould Interpretating Date/Time 10/04/2018 10:16:20
[2018-10-04] MEDS ORDERED: Neomycin/Polymyxin G.U. Irrigant 1 ML Ampul ONE (10:24)
--- NOTE | 2018-10-04 11:05 | P.OP ---
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 Surgery was undertaken to extend his prior fusion up to L2 from L5 and discectomy performed at L2/3. However, post-op MRI showed large residual disc and so surgery was indicated today to remove the remaining disc from the contralateral side. Description of procedure: Patient was already intubated and brought to main OR where the procedure was done under general. He was placed in prone on the concentric bed with all pressure points padded. Mid lumbar spine was prepped and draped in the usual sterile fashion and incision reopened over the L2/3 interspace. Old sutures removed. Wound irrigated. No CSF leak was apparent from the left sided tisseal. Right side epidural tissue was removed and the medial facet of L2/3 drilled to reveal the thecal sac and exiting nerve root. This was retracted. Microscope brought into the field. Several large fragments of disc were removed and the nerve root probed free of compression after decompression. Tisseal was placed in this field though no evidence of CSF leak. Wound irrigated with antibiotic irrigation then closed in layers with 0 and 2-0 vicryl for deep and superficial fascia, inverted 3-0 Vicryl for subcutaneous, monocril and dermabond. Sterile dressings applied. Patient returned supine and taken to ICU for planned later extubation.
[2018-10-04 12:06] LABS: ABG Base Excess -3.3 mmol/L (-2-2); ABG PCO2 47 mmHg (38-42); ABG PO2 70 mmHg (61-120)
[2018-10-04] MEDS: MethylPREDNISolone Sod Succinate Inj 40 MG/ML Vial IV.PUSH SCH ×2 (12:35→22:15)
--- NOTE | 2018-10-04 12:40 | XR ---
EXAM DATE: 10/04/2018 12:36 PM EST AGE/SEX: 73 years / Male INDICATIONS: COPD. Respiratory status. CLINICAL DATA: This is the patient's subsequent encounter. Patient reports that signs and symptoms h ave been present for 4 - 6 days and indicates a pain score of Nonresponsive. MEDICAL/SURGICAL HISTORY: Non-responsive. Non-responsive. COMPARISON: [facility] [place], CHEST 1V SINGLE AP, 10/04/2018. . FINDINGS: There is patchy consolidation greatest in the left lower lobe. This is increased from the previous st udy. Endotracheal tube and right subclavian central venous catheter as well as enteric tube are noted . These are stable. CONCLUSION: Increasing consolidation in the left lower lobe. Small left effusion also suspected. Electronically signed by: Saravanan Knight MD 10/04/2018 12:39 PM EST
[2018-10-04 13:31] LABS: ABG Base Excess -3.4 mmol/L (-2-2); ABG PCO2 45 mmHg (38-42); ABG PO2 71 mmHg (61-120)
[2018-10-05] MEDS: Oral Hygiene Kit OROPHARYNG SCH ×5 (00:41→23:24)
[2018-10-05] MEDS: Propofol 1000 mg/100 ml Inj 1,000 MG/100 ML BOTTLE IV.CONT PRN ×2 (00:58→08:34)
[2018-10-05] MEDS: fentaNYL 10 mcg/mL Premix Drip 2,500 MCG/250 ML BAG IV.SIG PRN ×2 (05:12→20:23)
[2018-10-05] MEDS: MethylPREDNISolone Sod Succinate Inj 40 MG/ML Vial IV.PUSH SCH ×3 (05:12→21:51)
[2018-10-05] MEDS: Chlorhexidine Gluconate 2% 1 Pack (2 Cloths) TOPICAL SCH (05:13)
[2018-10-05] MEDS: Sod Chloride 0.9% Inj 1,000 ML IV.CONT SCH ×3 (05:13→20:25)
[2018-10-05 05:14] LABS: Hematocrit 22.9 % (39.0-51.0); Hemoglobin 7.5 gm/dL (13.0-17.0); Mean Corpuscular HGB Conc 32.6 % (32.0-36.0); Mean Corpuscular Hemoglobin 29.5 pg (27.0-34.0); Mean Corpuscular Volume 90.7 fL (80.0-100.0); Mean Platelet Volume 7.1 fL (7.0-11.0); Platelet Count 206 th/mm3 (150-450); Red Blood Count 2.53 mil/mm3 (4.50-5.90); Red Cell Distribution Width 25.1 % (11.6-17.2); White Blood Count 8.6 th/mm3 (4.0-11.0)
[2018-10-05 05:38] LABS: Albumin 1.9 g/dL (3.4-5.0); Anion Gap 8 meq/L (5-15); Aspartate Aminotransferase 20 U/L (15-37); Blood Urea Nitrogen 23 mg/dL (7-18); Calcium 7.5 mg/dL (8.5-10.1); Carbon Dioxide 22.2 meq/L (21.0-32.0); Chloride 114 meq/L (98-107); Glomerular Filtration Rate 61 mL/min (>89); Glucose,Random 143 mg/dL (74-106); Magnesium 2.2 mg/dL (1.5-2.5); Sodium 144 meq/L (136-145)
[2018-10-05 05:39] LABS: Alanine Aminotransferase 14 U/L (12-78)
[2018-10-05 05:41] LABS: Alkaline Phosphatase 68 U/L (45-117); Total Protein 5.1 g/dL (6.4-8.2)
[2018-10-05 08:08] LABS: ABG PCO2 47 mmHg (38-42); ABG PO2 210 mmHg (61-120)
[2018-10-05] MEDS ORDERED: Sodium Bicarbonate 8.4% Inj 50 MEQ/50 ML Syringe IV.PUSH ONE (08:17)
--- NOTE | 2018-10-05 08:18 | P.PNCC ---
Subjective Subjective Remarks/Hospital Course: Patient is a 73-year-old male with past medical history significant for hypertension, COPD, Prostate carcinoma, history of previous lumbar laminectomy who came to the [place] emergency department as a transfer from transfer from [facility]. He was accepted by neurosurgery Dr. Peter for acute onset bilateral lower extremity weakness. Patient states that he woke up this morning around 6 AM with numbness and weakness of bilateral lower extremity. On attempt to walk he fell on his face due to weakness. Patient states that the strength got slight better since then. CT scan of the lumbar spine large area of soft attenuation attenuation in the ventral epidural space L2-L3 level suspicious for large disc extrusion with spinal canal stenosis with differential diagnosis involving hemorrhage, there is also at least moderate bilateral neural foraminal stenosis. I evaluate the patient in the ED. He complains of weakness more on the left leg which he is unable to lift. There is generalized numbness but he is able to feel my touch. Critical care was requested to admit the patient to the ICU. Discussed with Dr. Mittal ED and Dr. Peter neurosurgery. A stat MRI of the lumbar spine had been ordered. 10/03: Remains intubated sedated. Remains on Levophed at 10 mcg/min to maintain map above 70. Patient is s/p L2 to L5 posterior spinal fusion, Left L2 /3 microdiscectomy. (MRI showed large herniated disc at L2/3 and flex/ex showing instability at this level). On sedation hold patient is moving all 4 extremities. Hb 8.3 will transfuse 1 unit PRBC due to hypotension 10/04: Remains intubated sedated remains on 8 mcg/min of Levophed to maintain map above 75. Transfusing 1 unit PRBC for hemoglobin 7.4. post-op MRI with significant disc herniation at L2/3. Scheduled for surgery today with Dr. Peter 10/05: Patient underwent surgery on 10/04/2018 for removal residual disc at L2/ 3 right side based on post-op MRI. (s/p L2-5 revision fusion and left L2/3 discectomy on 10/02/18). Today patient's hypoxemia had improved, he was awake but on lightening sedation was very agitated so after a short CPAP trial patient was extubated. Shortly after extubation patient became very agitated requiring four-point restraints and physically nurses having to restrain him. 2 mg IV Ativan was given following which patient became partially responsive with obstructive airway sounds. Shortly became hypoxemic desaturated, became bradycardic in 40s and systolic blood pressure does drop to mid 40s. I was emergently called to the bedside I started bag and mask ventilation immediately. Half ampule of epinephrine was post IV. His heart rate in systolic blood pressure improved with bag and mask ventilation and epinephrine push however he remained unresponsive. Emergently intubated and placed on mechanical ventilation. Once more responsive will start on sedation with Versed. Start Levophed to maintain map above 65. Postintubation chest x-ray is pending. Objective Vital Signs / I&O: Vital Signs 10/04/18 11:10 10/04/18 11:15 10/04/18 11:30 Temperature Pulse Rate 75 76 74 Respiratory Rate Blood Pressure Pulse Oximetry 98 99 90 L 10/04/18 11:45 10/04/18 12:00 10/04/18 12:15 Temperature 98.3 F Pulse Rate 70 68 66 Respiratory Rate Blood Pressure 135/63 Pulse Oximetry 94 L 96 96 10/04/18 12:30 10/04/18 12:45 10/04/18 13:00 Temperature Pulse Rate 68 68 62 Respiratory Rate Blood Pressure 81/42 L Pulse Oximetry 96 96 96 10/04/18 13:02 10/04/18 13:15 10/04/18 13:30 Temperature Pulse Rate 62 62 60 Respiratory Rate Blood Pressure 168/74 H Pulse Oximetry 95 95 95 10/04/18 13:45 10/04/18 14:00 10/04/18 14:15 Temperature Pulse Rate 60 61 59 L Respiratory Rate Blood Pressure 142/66 H Pulse Oximetry 96 93 L 94 L 10/04/18 14:30 10/04/18 14:45 10/04/18 15:00 Temperature Pulse Rate 60 60 59 L Respiratory Rate Blood Pressure 144/64 H Pulse Oximetry 95 95 96 10/04/18 15:15 10/04/18 15:30 10/04/18 15:45 Temperature Pulse Rate 59 L 59 L 59 L Respiratory Rate Blood Pressure Pulse Oximetry 96 96 97 10/04/18 16:00 10/04/18 16:15 10/04/18 16:29 Temperature 98.4 F Pulse Rate 59 L 59 L 65 Respiratory Rate 16 17 Blood Pressure 140/65 Pulse Oximetry 97 96 97 10/04/18 16:30 10/04/18 16:45 10/04/18 17:00 Temperature Pulse Rate 60 59 L 60 Respiratory Rate Blood Pressure 140/63 Pulse Oximetry 97 96 96 10/04/18 17:15 10/04/18 17:30 10/04/18 17:45 Temperature Pulse Rate 60 60 59 L Respiratory Rate Blood Pressure Pulse Oximetry 96 96 96 10/04/18 18:00 10/04/18 18:15 10/04/18 18:30 Temperature Pulse Rate 60 59 L 59 L Respiratory Rate Blood Pressure 137/63 Pulse Oximetry 96 95 96 10/04/18 18:45 10/04/18 19:00 10/04/18 19:15 Temperature Pulse Rate 58 L 57 L 58 L Respiratory Rate Blood Pressure 138/63 Pulse Oximetry 96 96 96 10/04/18 19:28 10/04/18 19:30 10/04/18 19:45 Temperature Pulse Rate 58 L 58 L 58 L Respiratory Rate 17 Blood Pressure Pulse Oximetry 100 96 95 10/04/18 19:47 10/04/18 19:49 10/04/18 20:00 Temperature 98.3 F Pulse Rate 58 L 60 58 L Respiratory Rate 16 Blood Pressure 78/48 L 100/56 L 141/65 H Pulse Oximetry 93 L 93 L 95 10/04/18 20:15 10/04/18 20:30 10/04/18 20:45 Temperature Pulse Rate 59 L 61 59 L Respiratory Rate Blood Pressure Pulse Oximetry 97 97 97 10/04/18 21:00 10/04/18 21:15 10/04/18 21:30 Temperature Pulse Rate 60 59 L 59 L Respiratory Rate Blood Pressure 147/68 H Pulse Oximetry 95 97 96 10/04/18 21:45 10/04/18 22:00 10/04/18 22:15 Temperature Pulse Rate 58 L 58 L 57 L Respiratory Rate Blood Pressure 137/61 Pulse Oximetry 96 96 97 10/04/18 22:30 10/04/18 22:45 10/04/18 23:00 Temperature Pulse Rate 57 L 57 L 57 L Respiratory Rate Blood Pressure Pulse Oximetry 97 97 97 10/04/18 23:15 10/04/18 23:30 10/04/18 23:38 Temperature Pulse Rate 56 L 60 Respiratory Rate 16 Blood Pressure Pulse Oximetry 96 97 96 10/04/18 23:45 10/05/18 00:00 10/05/18 00:15 Temperature 98.3 F Pulse Rate 97 H 66 59 L Respiratory Rate 16 Blood Pressure 127/60 Pulse Oximetry 100 94 L 94 L 10/05/18 00:30 10/05/18 00:45 10/05/18 01:00 Temperature Pulse Rate 58 L 56 L 56 L Respiratory Rate Blood Pressure 123/60 Pulse Oximetry 96 95 95 10/05/18 01:15 10/05/18 01:30 10/05/18 01:45 Temperature Pulse Rate 56 L 55 L 54 L Respiratory Rate Blood Pressure Pulse Oximetry 96 97 97 10/05/18 02:00 10/05/18 02:15 10/05/18 02:30 Temperature Pulse Rate 54 L 54 L 54 L Respiratory Rate Blood Pressure 128/63 Pulse Oximetry 98 98 98 10/05/18 02:45 10/05/18 03:00 10/05/18 03:01 Temperature Pulse Rate 54 L 54 L 54 L Respiratory Rate 17 Blood Pressure 132/62 Pulse Oximetry 98 98 98 10/05/18 03:15 10/05/18 03:30 10/05/18 03:45 Temperature Pulse Rate 55 L 56 L 55 L Respiratory Rate Blood Pressure Pulse Oximetry 98 98 98 10/05/18 04:00 10/05/18 04:15 10/05/18 04:30 Temperature 97.6 F Pulse Rate 54 L 55 L 54 L Respiratory Rate 16 Blood Pressure 125/62 Pulse Oximetry 98 98 98 10/05/18 04:45 10/05/18 05:00 10/05/18 05:15 Temperature Pulse Rate 53 L 53 L 54 L Respiratory Rate Blood Pressure 137/61 Pulse Oximetry 98 99 99 10/05/18 05:30 10/05/18 05:45 10/05/18 06:00 Temperature Pulse Rate 53 L 54 L 54 L Respiratory Rate Blood Pressure 101/51 L Pulse Oximetry 99 99 98 10/05/18 06:15 Temperature Pulse Rate 56 L Respiratory Rate Blood Pressure Pulse Oximetry 100 Intake & Output 10/04/18 10/05/18 10/05/18 18:59 06:59 18:59 Intake Total 2300 / 2300 1350 / 1350 Output Total 1650 / 1650 700 / 700 Balance 650 / 650 650 / 650 Weight 91.7 kg Intake: IV 1500 / 1500 1350 / 1350 Diprivan 1000 mg/100 ml Inj 1, 200 / 200 100 / 100 000 mg In 100 ml @ 5 MCG/KG/MIN 2.449 mls/hr IV.CONT TITRATE PRN Rx#:[id number] NS Inj 1,000 ML @ 84 mls/hr IV. 1000 / 1000 1000 / 1000 CONT .[id number] ERIKA Rx#:[id number] Ancef 2 GM Premix Inj 2 gm In 50 / 50 50 ml @ 100 mls/hr IV.SIG ONCE ONE Rx#:[id number] fentaNYL 10 mcg/mL Premix Drip 250 / 250 250 / 250 2,500 mcg In 250 ml @ 50 MCG/HR 5 mls/hr IV.SIG TITRATE PRN Rx #:[id number] Oral 0 / 0 0 / 0 Anesthesia Amount 800 / 800 Output: Estimated Blood Loss 50 / 50 Urine Amount (Catheter) 1600 / 1600 700 / 700 Indwelling Urethral Catheter 1600 / 1600 700 / 700 Other: # Bowel Movements 0 0 Result Diagrams: 10/05/18 04:55 10/05/18 04:55 Objective Remarks: GENERAL: Well-nourished, well-developed patient, initially was very agitated on the vent but postintubation unresponsive after Ativan SKIN: warm/dry. HEAD: Normocephalic. EYES: No injection or drainage. ENT: Patient remains unresponsive currently started on bag and mask ventilation NECK: Supple, trachea midline. No JVD or lymphadenopathy. CARDIOVASCULAR: Bradycardic hypotensive systolic blood pressure in mid 40s. Remains on Levophed at 10 mcg/min RESPIRATORY: No spontaneous breathing, equal chest rise with bag and mask ventilation. GASTROINTESTINAL: Abdomen soft, non-tender, nondistended. MUSCULOSKELETAL: No cyanosis, or edema. NEURO: Limited after receiving Ativan patient is unresponsive. 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 Code(s): M47.16 - Other spondylosis with myelopathy, lumbar region Status: Acute (2) Weakness of lower extremity Code(s): R29.898 - Other symptoms and signs involving the musculoskeletal system Status: Acute (3) COPD (chronic obstructive pulmonary disease) Code(s): J44.9 - Chronic obstructive pulmonary disease, unspecified Status: Chronic (4) History of prostate cancer Code(s): Z85.46 - Personal history of malignant neoplasm of prostate Status: Chronic (5) History of hypertension Code(s): Z86.79 - Personal history of other diseases of the circulatory system Status: Chronic - Assessment and Plan Plan: ASSESSMENT: Acute hypoxemic hypercarbic respiratory failure Respiratory arrest after receiving Ativan Bradycardia and hypotension secondary to acidosis (combined respiratory and metabolic) Lumbar cord compression likely secondary to large herniated disc, with lower extremity weakness Right L2/L3 discectomy 10/04/2018 for removal residual disc at right L2/3 s/p L2-5 revision fusion and left L2/3 discectomy on 10/02/18. Hypotension on pressors History of previous lumbar posterior fusion and microdiscectomy Acute on chronic kidney disease Anemia requiring transfusion History of prostate cancer COPD History of hypertension PLAN: NEURO: -MRI showing large herniated disc at L2/3 and flex/ex showing instability at this level. -s/p L2-5 revision fusion and left L2/3 discectomy on 10/02/18. -post-op MRI with significant disc herniation at right L2/3 despite resection, Right L2/L3 discectomy 10/04/2018 -Spinal precautions -Keep sedated with propofol and fentanyl, use Versed if hypotensive -Failed extubation today became unresponsive with IV Ativan for agitation -Transition to Precedex in a.m. to facilitate vent weaning -Neurosurgery Dr. Peter. Dr. Smith to assume care from today RESP: -Extubated today however became unresponsive and hypoxic after receiving Ativan for agitation -Emergently reintubated and placed on mechanical ventilation -Currently on PRVC/AC -Initiate spontaneous weaning trial again after 24 hours -DuoNeb every 6 hours scheduled and as needed -Started scheduled Solu-Medrol for COPD -Aggressive pulmonary toilet -Check sputum culture, start empiric cefepime CV: -Maintain Levophed to keep map above 65 -Cardiac decompensation most likely secondary to pulmonary rest -Check lactic acid, give 2 A of bicarb for metabolic acidosis -Normal saline IV fluids 75 mL/h GI: -N.p.o., IV famotidine. Start tube feeds if hemato-medically improved -Bowel regimen : -Monitor renal function closely. -IV hydration as above -Maintain [place] for hourly intake output, monitor creatinine closely ID: -Sputum culture, start cefepime 2 g IV every 8 hours HEME: -Monitor CBC, coags -Transfuse 1 unit PRBC ENDO: -Electrolyte replacement per protocol PROPH: -Bilateral lower extremity SCDs. No chemical DVT prophylaxis due to spinal surgery/famotidine LINES: -Utilize peripheral IVs, central line if needed -PT evaluate and treat Going to or today as above remains critical at this time CCT 78 MIN excluding procedures Patient very critical. Post extubation very agitated received Ativan developed respiratory arrest followed by near cardiac collapse. Reintubated resuscitated and placed on mechanical ventilation. Weaning will be difficult given probably severe COPD never diagnosed. Currently receiving breathing treatments antibiotics and IV steroids. Remains on high-dose of Levophed to maintain blood pressure map above 65.
--- NOTE | 2018-10-05 08:19 | P.PCN ---
Date of procedure: 10/05/18 Pre-op diagnosis: Acute hypoxemic respiratory failure Post-op diagnosis: same Procedure: Endotracheal intubation Rapid Sequence Intubation was conducted. The patient received no medication for intubation as he was unresponsive. Cricoid pressure was maintained from time induction agent was given to time of cuff balloon inflation. Using a direct laryngoscope MAC 4 blade a grade 1 view was obtained, and a size 8.0 endotracheal tube with stylet, the patient was intubated on the first attempt. The stylet was removed and cuff balloon was inflated. Appropriate endotracheal tube position was confirmed by direct visualization of vocal cord passage, fogging of the tube, CO2 colometric indicator and symmetric breath sounds. The tube was secured at 23 cm at the lips. Anesthesia: none Surgeon: Alysa Welsh Pathology: other Condition: critical Disposition: ICU (SPUTUM CX)
[2018-10-05] MEDS: Chlorhexidine 0.12% Oral Kit 15 ML UDC OROPHARYNG SCH ×2 (08:25→20:17)
[2018-10-05] MEDS: Famotidine PF Inj 20 MG/2 ML Vial IV.PUSH SCH ×2 (08:37→20:21)
[2018-10-05] MEDS: Senna/Docusate Sodium 8.6/50 MG Tablet PO SCH ×2 (08:40→20:21)
--- NOTE | 2018-10-05 08:55 | XR ---
EXAM DATE: 10/05/2018 8:51 AM EST AGE/SEX: 73 years / Male INDICATIONS: Shortness of breath. CLINICAL DATA: This is the patient's subsequent encounter. Patient reports that signs and symptoms h ave been present for 1 week and indicates a pain score of Nonresponsive. MEDICAL/SURGICAL HISTORY: Non-responsive. Non-responsive. COMPARISON: [facility] – [place] CHEST 1V SINGLE AP, 10/04/2018. . FINDINGS: The ET tubes in good position. There is a right subclavian line in satisfactory position. There is atelectasis or infiltrate in the left lower lobe. There is a small left basilar effusion. Th is is similar to previous exam. There is mild atelectatic change at the right base as well. The bony structures are intact. CONCLUSION: ET tube in good position. Continued basilar atelectasis/infiltrate on the left. Electronically signed by: Ron Rubio MD 10/05/2018 8:54 AM EST
[2018-10-05 10:14] LABS: ABG Base Excess -1.7 mmol/L (-2-2); ABG PCO2 39 mmHg (38-42); ABG PO2 74 mmHg (61-120)
--- NOTE | 2018-10-05 12:12 | XR ---
EXAM DATE: 10/04/2018 12:00 PM EST AGE/SEX: 73 years / Male INDICATIONS: Post discectomy CLINICAL DATA: This is the patient's subsequent encounter. Patient reports that signs and symptoms h ave been present for 2 days and indicates a pain score of Nonresponsive. MEDICAL/SURGICAL HISTORY: Non-responsive. Non-responsive. COMPARISON: [facility] – [place], L[facility], 10/02/2018. . FINDINGS: Metallic probe is directed at L2-3 assuming 5 lumbar type vertebral bodies. Transpedicular fixation f rom L2 L5. CONCLUSION: Electronically signed by: Rogers Rubio MD 10/05/2018 12:11 PM EST
[2018-10-05] MEDS ORDERED: Atropine Inj 1 MG/10 ML Syringe IV.PUSH ONE (15:35)
--- NOTE | 2018-10-05 17:17 | P.PNNS ---
Subjective Interval history: reintubated as patient required Ativan for severe agitation and became unresponsive, currently sedated on Diprivan and fentanyl Physical Exam Vital signs: Vital Signs 10/04/18 17:30 10/04/18 17:45 10/04/18 18:00 Temperature Pulse Rate 60 59 L 60 Respiratory Rate Blood Pressure 137/63 Pulse Oximetry 96 96 96 10/04/18 18:15 10/04/18 18:30 10/04/18 18:45 Temperature Pulse Rate 59 L 59 L 58 L Respiratory Rate Blood Pressure Pulse Oximetry 95 96 96 10/04/18 19:00 10/04/18 19:15 10/04/18 19:28 Temperature Pulse Rate 57 L 58 L 58 L Respiratory Rate 17 Blood Pressure 138/63 Pulse Oximetry 96 96 100 10/04/18 19:30 10/04/18 19:45 10/04/18 19:47 Temperature Pulse Rate 58 L 58 L 58 L Respiratory Rate Blood Pressure 78/48 L Pulse Oximetry 96 95 93 L 10/04/18 19:49 10/04/18 20:00 10/04/18 20:15 Temperature 98.3 F Pulse Rate 60 58 L 59 L Respiratory Rate 16 Blood Pressure 100/56 L 141/65 H Pulse Oximetry 93 L 95 97 10/04/18 20:30 10/04/18 20:45 10/04/18 21:00 Temperature Pulse Rate 61 59 L 60 Respiratory Rate Blood Pressure 147/68 H Pulse Oximetry 97 97 95 10/04/18 21:15 10/04/18 21:30 10/04/18 21:45 Temperature Pulse Rate 59 L 59 L 58 L Respiratory Rate Blood Pressure Pulse Oximetry 97 96 96 10/04/18 22:00 10/04/18 22:15 10/04/18 22:30 Temperature Pulse Rate 58 L 57 L 57 L Respiratory Rate Blood Pressure 137/61 Pulse Oximetry 96 97 97 10/04/18 22:45 10/04/18 23:00 10/04/18 23:15 Temperature Pulse Rate 57 L 57 L 56 L Respiratory Rate Blood Pressure Pulse Oximetry 97 97 96 10/04/18 23:30 10/04/18 23:38 10/04/18 23:45 Temperature Pulse Rate 60 97 H Respiratory Rate 16 Blood Pressure Pulse Oximetry 97 96 100 10/05/18 00:00 10/05/18 00:15 10/05/18 00:30 Temperature 98.3 F Pulse Rate 66 59 L 58 L Respiratory Rate 16 Blood Pressure 127/60 Pulse Oximetry 94 L 94 L 96 10/05/18 00:45 10/05/18 01:00 10/05/18 01:15 Temperature Pulse Rate 56 L 56 L 56 L Respiratory Rate Blood Pressure 123/60 Pulse Oximetry 95 95 96 10/05/18 01:30 10/05/18 01:45 10/05/18 02:00 Temperature Pulse Rate 55 L 54 L 54 L Respiratory Rate Blood Pressure 128/63 Pulse Oximetry 97 97 98 10/05/18 02:15 10/05/18 02:30 10/05/18 02:45 Temperature Pulse Rate 54 L 54 L 54 L Respiratory Rate Blood Pressure Pulse Oximetry 98 98 98 10/05/18 03:00 10/05/18 03:01 10/05/18 03:15 Temperature Pulse Rate 54 L 54 L 55 L Respiratory Rate 17 Blood Pressure 132/62 Pulse Oximetry 98 98 98 10/05/18 03:30 10/05/18 03:45 10/05/18 04:00 Temperature 97.6 F Pulse Rate 56 L 55 L 54 L Respiratory Rate 16 Blood Pressure 125/62 Pulse Oximetry 98 98 98 10/05/18 04:15 10/05/18 04:30 10/05/18 04:45 Temperature Pulse Rate 55 L 54 L 53 L Respiratory Rate Blood Pressure Pulse Oximetry 98 98 98 10/05/18 05:00 10/05/18 05:15 10/05/18 05:30 Temperature Pulse Rate 53 L 54 L 53 L Respiratory Rate Blood Pressure 137/61 Pulse Oximetry 99 99 99 10/05/18 05:45 10/05/18 06:00 10/05/18 06:15 Temperature Pulse Rate 54 L 54 L 56 L Respiratory Rate Blood Pressure 101/51 L Pulse Oximetry 99 98 100 10/05/18 06:30 10/05/18 06:45 10/05/18 07:00 Temperature Pulse Rate 55 L 56 L 60 Respiratory Rate Blood Pressure 113/56 L Pulse Oximetry 100 100 98 10/05/18 07:15 10/05/18 07:30 10/05/18 07:34 Temperature Pulse Rate 117 H 124 H 107 H Respiratory Rate Blood Pressure 169/74 H Pulse Oximetry 96 96 100 10/05/18 07:45 10/05/18 08:00 10/05/18 08:15 Temperature 98.2 F Pulse Rate 85 80 82 Respiratory Rate 16 Blood Pressure Pulse Oximetry 100 100 95 10/05/18 08:30 10/05/18 08:45 10/05/18 09:00 Temperature Pulse Rate 83 87 83 Respiratory Rate 16 Blood Pressure Pulse Oximetry 100 93 L 95 10/05/18 09:15 10/05/18 09:30 10/05/18 09:45 Temperature Pulse Rate 84 71 67 Respiratory Rate Blood Pressure Pulse Oximetry 96 96 96 10/05/18 10:00 10/05/18 10:15 10/05/18 10:16 Temperature Pulse Rate 64 64 64 Respiratory Rate Blood Pressure 140/64 Pulse Oximetry 96 96 97 10/05/18 10:30 10/05/18 10:45 10/05/18 10:51 Temperature Pulse Rate 63 63 62 Respiratory Rate 16 Blood Pressure Pulse Oximetry 97 98 10/05/18 11:00 10/05/18 11:15 10/05/18 11:30 Temperature Pulse Rate 62 64 65 Respiratory Rate Blood Pressure Pulse Oximetry 98 99 98 10/05/18 11:45 10/05/18 12:00 10/05/18 12:02 Temperature Pulse Rate 64 62 Respiratory Rate 17 Blood Pressure Pulse Oximetry 98 99 99 10/05/18 12:15 10/05/18 12:30 10/05/18 12:45 Temperature Pulse Rate 61 60 60 Respiratory Rate Blood Pressure Pulse Oximetry 99 99 99 10/05/18 13:00 10/05/18 13:15 10/05/18 13:30 Temperature Pulse Rate 60 80 85 Respiratory Rate Blood Pressure Pulse Oximetry 100 99 100 10/05/18 13:45 10/05/18 14:00 10/05/18 14:15 Temperature Pulse Rate 72 65 62 Respiratory Rate Blood Pressure Pulse Oximetry 100 100 100 10/05/18 14:30 10/05/18 14:45 10/05/18 14:47 Temperature Pulse Rate 59 L 63 Respiratory Rate 16 16 Blood Pressure Pulse Oximetry 100 98 10/05/18 15:00 10/05/18 15:15 10/05/18 15:30 Temperature Pulse Rate 58 L 58 L Respiratory Rate Blood Pressure Pulse Oximetry 97 99 98 10/05/18 15:45 10/05/18 16:00 10/05/18 16:15 Temperature Pulse Rate 57 L 57 L 57 L Respiratory Rate 16 Blood Pressure Pulse Oximetry 99 100 100 10/05/18 16:30 Temperature Pulse Rate 58 L Respiratory Rate Blood Pressure Pulse Oximetry 100 Intake & Output 10/04/18 10/05/18 10/05/18 18:59 06:59 18:59 Intake Total 2300 / 2300 1350 / 1350 100 / 100 Output Total 1650 / 1650 700 / 700 Balance 650 / 650 650 / 650 100 / 100 Weight 91.7 kg Intake: IV 1500 / 1500 1350 / 1350 100 / 100 Diprivan 1000 mg/100 ml Inj 1, 200 / 200 100 / 100 100 / 100 000 mg In 100 ml @ 5 MCG/KG/MIN 2.449 mls/hr IV.CONT TITRATE PRN Rx#:[id number] NS Inj 1,000 ML @ 84 mls/hr IV. 1000 / 1000 1000 / 1000 CONT .[id number] [id number] Rx#:[id number] Ancef 2 GM Premix Inj 2 gm In 50 / 50 50 ml @ 100 mls/hr IV.SIG ONCE ONE Rx#:[id number] fentaNYL 10 mcg/mL Premix Drip 250 / 250 250 / 250 2,500 mcg In 250 ml @ 50 MCG/HR 5 mls/hr IV.SIG TITRATE PRN Rx #:[id number] Oral 0 / 0 0 / 0 Anesthesia Amount 800 / 800 Output: Estimated Blood Loss 50 / 50 Urine Amount (Catheter) 1600 / 1600 700 / 700 Indwelling Urethral Catheter 1600 / 1600 700 / 700 Other: # Bowel Movements 0 0 Narrative: intubated, sedated on diprivan and fentanyl pupils equal no withdrawal to pain stimuli plantars silent bilaterally - Urinary Catheter Management Indwelling Urethral Catheter Cath placed during this visit: yes Reason for continuing: Hourly intake/output Insertion date: 10/02/18 Insertion time: 20:32 Assessment and Plan - Plan 73yoM po (10/02/18) L2-5 revision fusion and left L2/3 discectomy cont critical care cont neuro checks
[2018-10-05] MEDS: Midazolam 50 MG/50 ML Inj 50 MG/50 ML BAG IV.CONT PRN ×2 (19:17→22:14)
[2018-10-05] MEDS: Sodium Chloride 0.9% 2 ML Flush BID IV.FLUSH SCH (20:18)
[2018-10-06] MEDS: Oral Hygiene Kit OROPHARYNG SCH ×4 (03:31→23:42)
[2018-10-06] MEDS: Chlorhexidine Gluconate 2% 1 Pack (2 Cloths) TOPICAL SCH (03:31)
[2018-10-06 04:54] LABS: Hematocrit 22.2 % (39.0-51.0); Hemoglobin 7.1 gm/dL (13.0-17.0); Mean Corpuscular HGB Conc 31.9 % (32.0-36.0); Mean Corpuscular Hemoglobin 29.5 pg (27.0-34.0); Mean Corpuscular Volume 92.5 fL (80.0-100.0); Mean Platelet Volume 7.6 fL (7.0-11.0); Platelet Count 189 th/mm3 (150-450); Red Cell Distribution Width 24.5 % (11.6-17.2); White Blood Count 6.8 th/mm3 (4.0-11.0)
[2018-10-06] MEDS: Sod Chloride 0.9% Inj 1,000 ML IV.CONT SCH ×2 (04:57→06:40)
[2018-10-06] MEDS: MethylPREDNISolone Sod Succinate Inj 40 MG/ML Vial IV.PUSH SCH ×3 (05:00→22:20)
[2018-10-06] MEDS: Midazolam 50 MG/50 ML Inj 50 MG/50 ML BAG IV.CONT PRN (05:01)
[2018-10-06 05:22] LABS: Calcium 7.7 mg/dL (8.5-10.1); Potassium 4.5 meq/L (3.5-5.1)
[2018-10-06] MEDS: Dexmedetomidine Inj 200 MCG in Sodium Chlor 0.9% Inj 48 ML IV.CONT PRN ×10 (06:51→23:20)
--- NOTE | 2018-10-06 07:33 | P.PNCC ---
Subjective Subjective Remarks/Hospital Course: Patient is a 73-year-old male with past medical history significant for hypertension, COPD, Prostate carcinoma, history of previous lumbar laminectomy who came to the [place] emergency department as a transfer from transfer from [facility]. He was accepted by neurosurgery Dr. Peter for acute onset bilateral lower extremity weakness. Patient states that he woke up this morning around 6 AM with numbness and weakness of bilateral lower extremity. On attempt to walk he fell on his face due to weakness. Patient states that the strength got slight better since then. CT scan of the lumbar spine large area of soft attenuation attenuation in the ventral epidural space L2-L3 level suspicious for large disc extrusion with spinal canal stenosis with differential diagnosis involving hemorrhage, there is also at least moderate bilateral neural foraminal stenosis. I evaluate the patient in the ED. He complains of weakness more on the left leg which he is unable to lift. There is generalized numbness but he is able to feel my touch. Critical care was requested to admit the patient to the ICU. Discussed with Dr. Mittal ED and Dr. Peter neurosurgery. A stat MRI of the lumbar spine had been ordered. 10/03: Remains intubated sedated. Remains on Levophed at 10 mcg/min to maintain map above 70. Patient is s/p L2 to L5 posterior spinal fusion, Left L2 /3 microdiscectomy. (MRI showed large herniated disc at L2/3 and flex/ex showing instability at this level). On sedation hold patient is moving all 4 extremities. Hb 8.3 will transfuse 1 unit PRBC due to hypotension 10/04: Remains intubated sedated remains on 8 mcg/min of Levophed to maintain map above 75. Transfusing 1 unit PRBC for hemoglobin 7.4. post-op MRI with significant disc herniation at L2/3. Scheduled for surgery today with Dr. Peter 10/05: Patient underwent surgery on 10/04/2018 for removal residual disc at L2/ 3 right side based on post-op MRI. (s/p L2-5 revision fusion and left L2/3 discectomy on 10/02/18). Today patient's hypoxemia had improved, he was awake but on lightening sedation was very agitated so after a short CPAP trial patient was extubated. Shortly after extubation patient became very agitated requiring four-point restraints and physically nurses having to restrain him. 2 mg IV Ativan was given following which patient became partially responsive with obstructive airway sounds. Shortly became hypoxemic desaturated, became bradycardic in 40s and systolic blood pressure does drop to mid 40s. I was emergently called to the bedside I started bag and mask ventilation immediately. Half ampule of epinephrine was post IV. His heart rate in systolic blood pressure improved with bag and mask ventilation and epinephrine push however he remained unresponsive. Emergently intubated and placed on mechanical ventilation. Once more responsive will start on sedation with Versed. Start Levophed to maintain map above 65. Postintubation chest x-ray is pending. 10/06: Remains intubated heavily sedated for vent synchrony. Patient gets very agitated on holding sedation. We will start Precedex to facilitate vent weaning. Hemoglobin is 7.1, 1 unit of PRBC followed by IV Lasix ordered. Objective Vital Signs / I&O: Vital Signs 10/05/18 07:30 10/05/18 07:34 10/05/18 07:45 Temperature Pulse Rate 124 H 107 H 85 Respiratory Rate Blood Pressure 169/74 H Pulse Oximetry 96 100 100 10/05/18 08:00 10/05/18 08:15 10/05/18 08:30 Temperature 98.2 F Pulse Rate 80 82 83 Respiratory Rate 16 16 Blood Pressure Pulse Oximetry 100 95 100 10/05/18 08:45 10/05/18 09:00 10/05/18 09:15 Temperature Pulse Rate 87 83 84 Respiratory Rate Blood Pressure Pulse Oximetry 93 L 95 96 10/05/18 09:30 10/05/18 09:45 10/05/18 10:00 Temperature Pulse Rate 71 67 64 Respiratory Rate Blood Pressure Pulse Oximetry 96 96 96 10/05/18 10:15 10/05/18 10:16 10/05/18 10:30 Temperature Pulse Rate 64 64 63 Respiratory Rate Blood Pressure 140/64 Pulse Oximetry 96 97 97 10/05/18 10:45 10/05/18 10:51 10/05/18 11:00 Temperature Pulse Rate 63 62 62 Respiratory Rate 16 Blood Pressure Pulse Oximetry 98 98 10/05/18 11:15 10/05/18 11:30 10/05/18 11:45 Temperature Pulse Rate 64 65 64 Respiratory Rate Blood Pressure Pulse Oximetry 99 98 98 10/05/18 12:00 10/05/18 12:02 10/05/18 12:15 Temperature Pulse Rate 62 61 Respiratory Rate 17 Blood Pressure Pulse Oximetry 99 99 99 10/05/18 12:30 10/05/18 12:45 10/05/18 13:00 Temperature Pulse Rate 60 60 60 Respiratory Rate Blood Pressure Pulse Oximetry 99 99 100 10/05/18 13:15 10/05/18 13:30 10/05/18 13:45 Temperature Pulse Rate 80 85 72 Respiratory Rate Blood Pressure Pulse Oximetry 99 100 100 10/05/18 14:00 10/05/18 14:15 10/05/18 14:30 Temperature Pulse Rate 65 62 59 L Respiratory Rate Blood Pressure Pulse Oximetry 100 100 100 10/05/18 14:45 10/05/18 14:47 10/05/18 15:00 Temperature Pulse Rate 63 Respiratory Rate 16 16 Blood Pressure Pulse Oximetry 98 97 10/05/18 15:15 10/05/18 15:30 10/05/18 15:45 Temperature Pulse Rate 58 L 58 L 57 L Respiratory Rate Blood Pressure Pulse Oximetry 99 98 99 10/05/18 16:00 10/05/18 16:15 10/05/18 16:30 Temperature Pulse Rate 57 L 57 L 58 L Respiratory Rate 16 Blood Pressure Pulse Oximetry 100 100 100 10/05/18 16:45 10/05/18 17:00 10/05/18 17:15 Temperature Pulse Rate 59 L 58 L 57 L Respiratory Rate Blood Pressure Pulse Oximetry 99 99 99 10/05/18 17:30 10/05/18 17:45 10/05/18 18:00 Temperature Pulse Rate 55 L 55 L 55 L Respiratory Rate Blood Pressure Pulse Oximetry 100 99 99 10/05/18 18:15 10/05/18 18:30 10/05/18 18:45 Temperature Pulse Rate 55 L 70 60 Respiratory Rate Blood Pressure Pulse Oximetry 99 100 100 10/05/18 19:00 10/05/18 19:30 10/05/18 20:00 Temperature 97.6 F Pulse Rate 58 L 62 79 Respiratory Rate 16 Blood Pressure Pulse Oximetry 99 99 97 10/05/18 20:30 10/05/18 20:37 10/05/18 20:51 Temperature Pulse Rate 58 L 63 Respiratory Rate 16 16 Blood Pressure Pulse Oximetry 96 96 10/05/18 21:00 10/05/18 21:30 10/05/18 22:00 Temperature Pulse Rate 61 59 L 57 L Respiratory Rate Blood Pressure Pulse Oximetry 98 98 100 10/05/18 22:30 10/05/18 23:00 10/05/18 23:30 Temperature Pulse Rate 56 L 60 58 L Respiratory Rate Blood Pressure Pulse Oximetry 100 100 96 10/06/18 00:00 10/06/18 00:05 10/06/18 00:06 Temperature 97.8 F Pulse Rate 55 L 56 L Respiratory Rate 16 17 Blood Pressure Pulse Oximetry 96 95 10/06/18 00:30 10/06/18 01:00 10/06/18 01:30 Temperature Pulse Rate 60 65 61 Respiratory Rate Blood Pressure Pulse Oximetry 94 L 93 L 93 L 10/06/18 02:00 10/06/18 02:30 10/06/18 03:00 Temperature Pulse Rate 59 L 56 L 56 L Respiratory Rate Blood Pressure Pulse Oximetry 94 L 95 95 10/06/18 03:30 10/06/18 03:38 10/06/18 03:41 Temperature Pulse Rate 55 L 88 Respiratory Rate 17 20 Blood Pressure Pulse Oximetry 95 95 10/06/18 04:00 10/06/18 04:30 10/06/18 05:00 Temperature 97.3 F L Pulse Rate 77 62 58 L Respiratory Rate 16 16 Blood Pressure Pulse Oximetry 96 95 94 L 10/06/18 05:30 10/06/18 06:00 Temperature Pulse Rate 56 L 55 L Respiratory Rate Blood Pressure Pulse Oximetry 94 L 94 L Intake & Output 10/05/18 10/06/18 10/06/18 18:59 06:59 18:59 Intake Total 1327 / 1327 2154 / 2154 Output Total 550 / 550 600 / 600 Balance 777 / 777 1554 / 1554 Weight 94 kg Intake: IV 1200 / 1200 1650 / 1650 Versed Inj 50 mg In 50 ml @ 2 100 / 100 MG/HR 2 mls/hr IV.CONT TITRATE PRN Rx#:[id number] Diprivan 1000 mg/100 ml Inj 1, 100 / 100 100 / 100 000 mg In 100 ml @ 5 MCG/KG/MIN 2.449 mls/hr IV.CONT TITRATE PRN Rx#:[id number] NS Inj 1,000 ML @ 84 mls/hr IV. 1000 / 1000 1000 / 1000 CONT .[id number] [facility] Rx#:[id number] Maxipime Inj 2,000 MG In NS Inj 100 / 100 200 / 200 100 ML @ 200 mls/hr IV.SIG Q8H [facility] Rx#:[id number] fentaNYL 10 mcg/mL Premix Drip 250 / 250 2,500 mcg In 250 ml @ 50 MCG/HR 5 mls/hr IV.SIG TITRATE PRN Rx #:[id number] Tube Feeding 127 / 127 264 / 264 Water Bolus Amount 240 / 240 Output: Urine Amount (Catheter) 550 / 550 600 / 600 Indwelling Urethral Catheter 550 / 550 600 / 600 Result Diagrams: 10/06/18 04:16 10/06/18 04:16 Objective Remarks: GENERAL: Well-nourished, well-developed patient, intubated heavily sedated SKIN: warm/dry. HEAD: Normocephalic. EYES: No injection or drainage. ENT: Orotracheally intubated NECK: Supple, trachea midline. No JVD or lymphadenopathy. CARDIOVASCULAR: S1-S2 normal no murmurs RESPIRATORY: Barrel-shaped chest. Air entry equal bilaterally, mild expiratory wheezing GASTROINTESTINAL: Abdomen soft, non-tender, nondistended. MUSCULOSKELETAL: No cyanosis, or edema. NEURO: Intubated heavily sedated for vent synchrony. 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 Code(s): M47.16 - Other spondylosis with myelopathy, lumbar region Status: Acute (2) Weakness of lower extremity Code(s): R29.898 - Other symptoms and signs involving the musculoskeletal system Status: Acute (3) COPD (chronic obstructive pulmonary disease) Code(s): J44.9 - Chronic obstructive pulmonary disease, unspecified Status: Chronic (4) History of prostate cancer Code(s): Z85.46 - Personal history of malignant neoplasm of prostate Status: Chronic (5) History of hypertension Code(s): Z86.79 - Personal history of other diseases of the circulatory system Status: Chronic - Assessment and Plan Plan: ASSESSMENT: Acute hypoxemic hypercarbic respiratory failure Respiratory arrest after receiving Ativan on 10/05/2018 Hypotension now resolved Lumbar cord compression likely secondary to large herniated disc, with lower extremity weakness Right L2/L3 discectomy 10/04/2018 for removal residual disc at right L2/3 s/p L2-5 revision fusion and left L2/3 discectomy on 10/02/18. Hypotension on pressors History of previous lumbar posterior fusion and microdiscectomy by Dr. Hansen Acute on chronic kidney disease Anemia requiring transfusion History of prostate cancer COPD History of hypertension PLAN: NEURO: -MRI showing large herniated disc at L2/3 and flex/ex showing instability at this level. -s/p L2-5 revision fusion and left L2/3 discectomy on 10/02/18. -post-op MRI with significant disc herniation at right L2/3 despite resection, Right L2/L3 discectomy 10/04/2018 -Spinal precautions -Currently sedated with Versed and fentanyl. -Start Precedex to facilitate vent weaning, add Seroquel 50 twice daily -Neurosurgery Dr. Peter. Dr. Hansen following now RESP: -Extubated 10/05/18 however became unresponsive and hypoxic after receiving Ativan for agitation -Emergently reintubated and placed on mechanical ventilation -Currently on PRVC/AC -Initiate spontaneous weaning trial after starting Precedex -DuoNeb every 6 hours scheduled and as needed -Scheduled Solu-Medrol for COPD -Aggressive pulmonary toilet -f/u sputum culture, continue empiric cefepime CV: -Maintain Levophed to keep map above 65 -Cardiac decompensation most likely secondary to pulmonary rest -Discontinue IV fluid, give IV Lasix 40 mg x1 GI: -N.p.o., IV famotidine. Start tube feeds if not extubated today -Bowel regimen : -Monitor renal function closely. -IV hydration will be discontinued and IV Lasix as above -Maintain [place] for hourly intake output, monitor creatinine closely ID: -Sputum culture, continue cefepime 2 g IV every 8 hours HEME: -Transfuse 1 unit PRBC -Monitor CBC, coags ENDO: -Electrolyte replacement per protocol PROPH: -Bilateral lower extremity SCDs. No chemical DVT prophylaxis due to spinal surgery/continue famotidine LINES: -Utilize peripheral IVs, central line if needed -PT evaluate and treat CCT 35 MIN Patient remains critical. Post extubation very agitated received Ativan developed respiratory arrest followed by near cardiac collapse. Reintubated resuscitated and placed on mechanical ventilation. Weaning will be difficult given probably severe COPD never diagnosed. Currently receiving breathing treatments antibiotics and IV steroids. Starting Precedex to facilitate vent weaning
--- NOTE | 2018-10-06 07:49 | XR ---
EXAM DATE: 10/06/2018 7:46 AM EST AGE/SEX: 73 years / Male INDICATIONS: Short of breath, evaluate respiratory disease CLINICAL DATA: This is the patient's subsequent encounter. Patient reports that signs and symptoms h ave been present for 1 week and indicates a pain score of Nonresponsive. MEDICAL/SURGICAL HISTORY: . spinal hematoma Non-responsive. COMPARISON: [facility], CHEST 1V SINGLE AP, 10/05/2018. . FINDINGS: The ET tube is in good position. The nasogastric tubes in good position. There is cardiomegaly. There is left basilar effusion and consolidation of the left lower lobe. There is mild atelectatic change at the right base. These findings are similar compared to previous dated 10/05/2018. The bony structures are grossly intact. CONCLUSION: 1. ET tube in good position. 2. Continued left basilar effusion and consolidation of the left lower lobe. Electronically signed by: Ron Rubio MD 10/06/2018 7:48 AM EST
[2018-10-06] MEDS ORDERED: Sodium Chlor 0.9% Inj 250 ML IV.SIG SCH (08:00)
[2018-10-06] MEDS: Famotidine PF Inj 20 MG/2 ML Vial IV.PUSH SCH ×2 (08:01→20:16)
[2018-10-06] MEDS: Chlorhexidine 0.12% Oral Kit 15 ML UDC OROPHARYNG SCH ×2 (08:01→20:15)
[2018-10-06] MEDS: QUEtiapine 25 MG Tablet PO SCH ×2 (08:02→20:16)
[2018-10-06] MEDS: Sodium Chloride 0.9% 2 ML Flush BID IV.FLUSH SCH ×2 (08:02→20:16)
[2018-10-06] MEDS: Senna/Docusate Sodium 8.6/50 MG Tablet PO SCH ×2 (08:02→20:16)
[2018-10-06] MEDS: fentaNYL 10 mcg/mL Premix Drip 2,500 MCG/250 ML BAG IV.SIG PRN (11:54)
[2018-10-06] MEDS: hydrALAZINE HCl Inj 20 MG/ML Vial IV.PUSH PRN ×2 (17:12→22:45)
--- NOTE | 2018-10-06 17:25 | P.PNNS ---
Subjective Interval history: remains intubated, sedated. Physical Exam Vital signs: Vital Signs 10/05/18 17:30 10/05/18 17:45 10/05/18 18:00 Temperature Pulse Rate 55 L 55 L 55 L Respiratory Rate Pulse Oximetry 100 99 99 10/05/18 18:15 10/05/18 18:30 10/05/18 18:45 Temperature Pulse Rate 55 L 70 60 Respiratory Rate Pulse Oximetry 99 100 100 10/05/18 19:00 10/05/18 19:30 10/05/18 20:00 Temperature 97.6 F Pulse Rate 58 L 62 79 Respiratory Rate 16 Pulse Oximetry 99 99 97 10/05/18 20:30 10/05/18 20:37 10/05/18 20:51 Temperature Pulse Rate 58 L 63 Respiratory Rate 16 16 Pulse Oximetry 96 96 10/05/18 21:00 10/05/18 21:30 10/05/18 22:00 Temperature Pulse Rate 61 59 L 57 L Respiratory Rate Pulse Oximetry 98 98 100 10/05/18 22:30 10/05/18 23:00 10/05/18 23:30 Temperature Pulse Rate 56 L 60 58 L Respiratory Rate Pulse Oximetry 100 100 96 10/06/18 00:00 10/06/18 00:05 10/06/18 00:06 Temperature 97.8 F Pulse Rate 55 L 56 L Respiratory Rate 16 17 Pulse Oximetry 96 95 10/06/18 00:30 10/06/18 01:00 10/06/18 01:30 Temperature Pulse Rate 60 65 61 Respiratory Rate Pulse Oximetry 94 L 93 L 93 L 10/06/18 02:00 10/06/18 02:30 10/06/18 03:00 Temperature Pulse Rate 59 L 56 L 56 L Respiratory Rate Pulse Oximetry 94 L 95 95 10/06/18 03:30 10/06/18 03:38 10/06/18 03:41 Temperature Pulse Rate 55 L 88 Respiratory Rate 17 20 Pulse Oximetry 95 95 10/06/18 04:00 10/06/18 04:30 10/06/18 05:00 Temperature 97.3 F L Pulse Rate 77 62 58 L Respiratory Rate 16 16 Pulse Oximetry 96 95 94 L 10/06/18 05:30 10/06/18 06:00 10/06/18 07:00 Temperature Pulse Rate 56 L 55 L 55 L Respiratory Rate Pulse Oximetry 94 L 94 L 93 L 10/06/18 07:53 10/06/18 08:00 10/06/18 08:06 Temperature 98.6 F Pulse Rate 53 L 52 L Respiratory Rate 16 16 Pulse Oximetry 92 L 92 L 10/06/18 08:59 10/06/18 09:00 10/06/18 09:16 Temperature 97.8 F 98.2 F Pulse Rate 55 L 55 L 53 L Respiratory Rate 16 16 Pulse Oximetry 94 L 94 L 94 L 10/06/18 10:00 10/06/18 10:35 10/06/18 11:00 Temperature 98.2 F Pulse Rate 53 L 54 L 51 L Respiratory Rate Pulse Oximetry 94 L 94 L 10/06/18 11:46 10/06/18 12:00 10/06/18 13:00 Temperature 98.6 F Pulse Rate 55 L 54 L Respiratory Rate 16 Pulse Oximetry 92 L 92 L 93 L 10/06/18 14:00 10/06/18 15:00 10/06/18 15:11 Temperature Pulse Rate 55 L 66 65 Respiratory Rate 16 Pulse Oximetry 93 L 93 L 10/06/18 15:12 10/06/18 16:00 10/06/18 17:00 Temperature 98.6 F Pulse Rate 66 58 L Respiratory Rate 16 Pulse Oximetry 93 L 94 L 93 L Intake & Output 10/05/18 10/06/18 10/06/18 18:59 06:59 18:59 Intake Total 1327 / 1327 2154 / 2154 1133 / 1133 Output Total 550 / 550 600 / 600 Balance 777 / 777 1554 / 1554 1133 / 1133 Weight 94 kg Intake: IV 1200 / 1200 1650 / 1650 683 / 683 Precedex Inj 200 MCG In NS Inj 200 / 200 48 ML @ 0.2 MCG/KG/HR 4.58 mls/ hr IV.CONT TITRATE PRN Rx#: [id number] Versed Inj 50 mg In 50 ml @ 2 100 / 100 MG/HR 2 mls/hr IV.CONT TITRATE PRN Rx#:[id number] Diprivan 1000 mg/100 ml Inj 1, 100 / 100 100 / 100 000 mg In 100 ml @ 5 MCG/KG/MIN 2.449 mls/hr IV.CONT TITRATE PRN Rx#:[id number] NS Inj 1,000 ML @ 84 mls/hr IV. 1000 / 1000 1000 / 1000 133 / 133 CONT .[id number] [facility] Rx#:[id number] Maxipime Inj 2,000 MG In NS Inj 100 / 100 200 / 200 100 / 100 100 ML @ 200 mls/hr IV.SIG Q8H [facility] Rx#:[id number] fentaNYL 10 mcg/mL Premix Drip 250 / 250 250 / 250 2,500 mcg In 250 ml @ 50 MCG/HR 5 mls/hr IV.SIG TITRATE PRN Rx #:[id number] Tube Feeding 127 / 127 264 / 264 Water Bolus Amount 240 / 240 Other 50 / 50 Rbc As-3 Leukoreduced Unit 50 / 50 [id number] Intake (Blood Product) Amt 400 / 400 Rbc As-3 Leukoreduced Unit 400 / 400 [id number] Output: Urine Amount (Catheter) 550 / 550 600 / 600 Indwelling Urethral Catheter 550 / 550 600 / 600 Narrative: intubated, well sedated on diprivan and fentanyl pupils equal no withdrawal to pain stimuli plantars silent bilaterally - Urinary Catheter Management Indwelling Urethral Catheter Cath placed during this visit: yes Reason for continuing: Hourly intake/output Insertion date: 10/02/18 Insertion time: 20:32 Assessment and Plan - Plan 73yoM po (10/02/18) L2-5 revision fusion and left L2/3 discectomy cont critical care cont neuro checks sedation weaning as tolerated
[2018-10-06] MEDS: Morphine Sulfate Inj 2 MG/ML Vial IV.PUSH PRN (22:58)
[2018-10-07] MEDS: Dexmedetomidine Inj 200 MCG in Sodium Chlor 0.9% Inj 48 ML IV.CONT PRN ×4 (00:56→05:38)
[2018-10-07] MEDS: hydrALAZINE HCl Inj 20 MG/ML Vial IV.PUSH PRN (02:45)
[2018-10-07 04:30] LABS: Hematocrit 29.5 % (39.0-51.0); Hemoglobin 9.3 gm/dL (13.0-17.0); Mean Corpuscular HGB Conc 31.4 % (32.0-36.0); Mean Corpuscular Hemoglobin 28.2 pg (27.0-34.0); Mean Corpuscular Volume 89.8 fL (80.0-100.0); Platelet Count 214 th/mm3 (150-450); Red Blood Count 3.28 mil/mm3 (4.50-5.90); Red Cell Distribution Width 23.2 % (11.6-17.2); White Blood Count 7.5 th/mm3 (4.0-11.0)
[2018-10-07 04:56] LABS: Anion Gap 7 meq/L (5-15); Aspartate Aminotransferase 13 U/L (15-37); Blood Urea Nitrogen 39 mg/dL (7-18); Calcium 8.1 mg/dL (8.5-10.1); Carbon Dioxide 23.1 meq/L (21.0-32.0); Chloride 115 meq/L (98-107); Glomerular Filtration Rate 66 mL/min (>89); Glucose,Random 172 mg/dL (74-106); Potassium 4.5 meq/L (3.5-5.1); Sodium 145 meq/L (136-145)
[2018-10-07] MEDS: Oral Hygiene Kit OROPHARYNG SCH ×4 (04:56→23:45)
[2018-10-07] MEDS: Chlorhexidine Gluconate 2% 1 Pack (2 Cloths) TOPICAL SCH (04:56)
[2018-10-07 04:57] LABS: Alanine Aminotransferase 12 U/L (12-78)
[2018-10-07 04:59] LABS: Alkaline Phosphatase 72 U/L (45-117); Total Protein 5.7 g/dL (6.4-8.2)
[2018-10-07] MEDS: MethylPREDNISolone Sod Succinate Inj 40 MG/ML Vial IV.PUSH SCH ×3 (05:00→21:03)
--- NOTE | 2018-10-07 06:54 | P.PNCC ---
Subjective Subjective Remarks/Hospital Course: Patient is a 73-year-old male with past medical history significant for hypertension, COPD, Prostate carcinoma, history of previous lumbar laminectomy who came to the [facility] emergency department as a transfer from transfer from [facility]. He was accepted by neurosurgery Dr. Peter for acute onset bilateral lower extremity weakness. Patient states that he woke up this morning around 6 AM with numbness and weakness of bilateral lower extremity. On attempt to walk he fell on his face due to weakness. Patient states that the strength got slight better since then. CT scan of the lumbar spine large area of soft attenuation attenuation in the ventral epidural space L2-L3 level suspicious for large disc extrusion with spinal canal stenosis with differential diagnosis involving hemorrhage, there is also at least moderate bilateral neural foraminal stenosis. I evaluate the patient in the ED. He complains of weakness more on the left leg which he is unable to lift. There is generalized numbness but he is able to feel my touch. Critical care was requested to admit the patient to the ICU. Discussed with Dr. Mittal ED and Dr. Peter neurosurgery. A stat MRI of the lumbar spine had been ordered. 10/03: Remains intubated sedated. Remains on Levophed at 10 mcg/min to maintain map above 70. Patient is s/p L2 to L5 posterior spinal fusion, Left L2 /3 microdiscectomy. (MRI showed large herniated disc at L2/3 and flex/ex showing instability at this level). On sedation hold patient is moving all 4 extremities. Hb 8.3 will transfuse 1 unit PRBC due to hypotension 10/04: Remains intubated sedated remains on 8 mcg/min of Levophed to maintain map above 75. Transfusing 1 unit PRBC for hemoglobin 7.4. post-op MRI with significant disc herniation at L2/3. Scheduled for surgery today with Dr. Peter 10/05: Patient underwent surgery on 10/04/2018 for removal residual disc at L2/ 3 right side based on post-op MRI. (s/p L2-5 revision fusion and left L2/3 discectomy on 10/02/18). Today patient's hypoxemia had improved, he was awake but on lightening sedation was very agitated so after a short CPAP trial patient was extubated. Shortly after extubation patient became very agitated requiring four-point restraints and physically nurses having to restrain him. 2 mg IV Ativan was given following which patient became partially responsive with obstructive airway sounds. Shortly became hypoxemic desaturated, became bradycardic in 40s and systolic blood pressure does drop to mid 40s. I was emergently called to the bedside I started bag and mask ventilation immediately. Half ampule of epinephrine was post IV. His heart rate in systolic blood pressure improved with bag and mask ventilation and epinephrine push however he remained unresponsive. Emergently intubated and placed on mechanical ventilation. Once more responsive will start on sedation with Versed. Start Levophed to maintain map above 65. Postintubation chest x-ray is pending. 10/06: Remains intubated heavily sedated for vent synchrony. Patient gets very agitated on holding sedation. We will start Precedex to facilitate vent weaning. Hemoglobin is 7.1, 1 unit of PRBC followed by IV Lasix ordered. 10/07: Agitated. TVs > 1.0 liter spontaneous. Extubated. Patient required reintubation about 5 hours later due to hypoxemia. Objective Vital Signs / I&O: Vital Signs 10/06/18 07:00 10/06/18 07:53 10/06/18 08:00 Temperature 98.6 F Pulse Rate 55 L 53 L Respiratory Rate 16 Pulse Oximetry 93 L 92 L 92 L 10/06/18 08:06 10/06/18 08:59 10/06/18 09:00 Temperature 97.8 F Pulse Rate 52 L 55 L 55 L Respiratory Rate 16 16 Pulse Oximetry 94 L 94 L 10/06/18 09:16 10/06/18 10:00 10/06/18 10:35 Temperature 98.2 F 98.2 F Pulse Rate 53 L 53 L 54 L Respiratory Rate 16 Pulse Oximetry 94 L 94 L 10/06/18 11:00 10/06/18 11:46 10/06/18 12:00 Temperature 98.6 F Pulse Rate 51 L 55 L Respiratory Rate 16 Pulse Oximetry 94 L 92 L 92 L 10/06/18 13:00 10/06/18 14:00 10/06/18 15:00 Temperature Pulse Rate 54 L 55 L 66 Respiratory Rate Pulse Oximetry 93 L 93 L 93 L 10/06/18 15:11 10/06/18 15:12 10/06/18 16:00 Temperature 98.6 F Pulse Rate 65 66 Respiratory Rate 16 16 Pulse Oximetry 93 L 94 L 10/06/18 17:00 10/06/18 18:00 10/06/18 18:30 Temperature Pulse Rate 58 L 62 61 Respiratory Rate Pulse Oximetry 93 L 93 L 93 L 10/06/18 19:00 10/06/18 19:05 10/06/18 19:30 Temperature Pulse Rate 58 L 58 L 64 Respiratory Rate 16 Pulse Oximetry 93 L 93 L 93 L 10/06/18 20:00 10/06/18 20:30 10/06/18 21:00 Temperature 98.3 F Pulse Rate 62 60 60 Respiratory Rate Pulse Oximetry 93 L 93 L 93 L 10/06/18 21:30 10/06/18 22:00 10/06/18 22:30 Temperature Pulse Rate 70 55 L 55 L Respiratory Rate Pulse Oximetry 94 L 92 L 93 L 10/06/18 23:00 10/06/18 23:30 10/07/18 00:00 Temperature 98.1 F Pulse Rate 66 59 L 57 L Respiratory Rate Pulse Oximetry 94 L 93 L 94 L 10/07/18 00:30 10/07/18 00:34 10/07/18 00:35 Temperature Pulse Rate 56 L 56 L Respiratory Rate 16 16 Pulse Oximetry 95 95 10/07/18 01:00 10/07/18 01:30 10/07/18 02:00 Temperature Pulse Rate 62 59 L 59 L Respiratory Rate Pulse Oximetry 95 95 94 L 10/07/18 02:30 10/07/18 03:00 10/07/18 03:30 Temperature Pulse Rate 57 L 58 L 56 L Respiratory Rate Pulse Oximetry 95 96 95 10/07/18 03:51 10/07/18 03:52 10/07/18 04:00 Temperature 98.3 F Pulse Rate 56 L 58 L Respiratory Rate 17 16 Pulse Oximetry 94 L 94 L 10/07/18 04:30 10/07/18 04:45 10/07/18 05:00 Temperature Pulse Rate 61 59 L 59 L Respiratory Rate Pulse Oximetry 94 L 94 L 92 L 10/07/18 05:15 10/07/18 05:30 Temperature Pulse Rate 58 L 62 Respiratory Rate Pulse Oximetry 93 L 94 L Intake & Output 10/06/18 10/06/18 10/07/18 06:59 18:59 06:59 Intake Total 2154 / 2154 1755 / 1755 1000 / 1000 Output Total 600 / 600 1350 / 1350 Balance 1554 / 1554 405 / 405 1000 / 1000 Weight 94 kg Intake: IV 1650 / 1650 833 / 833 1000 / 1000 Precedex Inj 200 MCG In NS Inj 250 / 250 400 / 400 48 ML @ 0.2 MCG/KG/HR 4.58 mls/ hr IV.CONT TITRATE PRN Rx#: [id number] Versed Inj 50 mg In 50 ml @ 2 100 / 100 MG/HR 2 mls/hr IV.CONT TITRATE PRN Rx#:[id number] Diprivan 1000 mg/100 ml Inj 1, 100 / 100 000 mg In 100 ml @ 5 MCG/KG/MIN 2.449 mls/hr IV.CONT TITRATE PRN Rx#:[id number] NS Inj 1,000 ML @ 84 mls/hr IV. 1000 / 1000 133 / 133 CONT .[id number] [facility] Rx#:[id number] Maxipime Inj 2,000 MG In NS Inj 200 / 200 200 / 200 100 / 100 100 ML @ 200 mls/hr IV.SIG Q8H [facility] Rx#:[id number] Levophed-Dextrose 4 mg/250 ml 250 / 250 Drip 4 mg In 250 ml @ 2 MCG/MIN 7.5 mls/hr IV.SIG TITRATE PRN Rx#:[id number] NS Inj 250 ML @ 15 mls/hr IV. 250 / 250 SIG ONCE [facility] Rx#:[id number] fentaNYL 10 mcg/mL Premix Drip 250 / 250 250 / 250 2,500 mcg In 250 ml @ 50 MCG/HR 5 mls/hr IV.SIG TITRATE PRN Rx #:[id number] Tube Feeding 264 / 264 472 / 472 Water Bolus Amount 240 / 240 Other 50 / 50 Rbc As-3 Leukoreduced Unit 50 / 50 [id number] Intake (Blood Product) Amt 400 / 400 Rbc As-3 Leukoreduced Unit 400 / 400 [id number] Output: Urine Amount (Catheter) 600 / 600 1350 / 1350 Indwelling Urethral Catheter 600 / 600 1350 / 1350 Other: # Bowel Movements 0 Result Diagrams: 10/07/18 03:26 10/07/18 03:26 Objective Remarks: GENERAL: Well-nourished, well-developed patient, intubated heavily sedated SKIN: warm/dry. HEAD: Normocephalic. EYES: No injection or drainage. ENT: Orotracheally intubated NECK: Supple, trachea midline. No JVD or lymphadenopathy. CARDIOVASCULAR: S1-S2 normal no murmurs RESPIRATORY: Barrel-shaped chest. Air entry equal bilaterally, scatterd rhonchi , no wheezes GASTROINTESTINAL: Abdomen soft, non-tender, nondistended. MUSCULOSKELETAL: No cyanosis, or edema. NEURO: Intubated lightly sedated for vent synchrony. 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 Code(s): M47.16 - Other spondylosis with myelopathy, lumbar region Status: Acute (2) Weakness of lower extremity Code(s): R29.898 - Other symptoms and signs involving the musculoskeletal system Status: Acute (3) COPD (chronic obstructive pulmonary disease) Code(s): J44.9 - Chronic obstructive pulmonary disease, unspecified Status: Chronic (4) History of prostate cancer Code(s): Z85.46 - Personal history of malignant neoplasm of prostate Status: Chronic (5) History of hypertension Code(s): Z86.79 - Personal history of other diseases of the circulatory system Status: Chronic - Assessment and Plan Plan: ASSESSMENT: Acute hypoxemic hypercarbic/hypoxemic respiratory failure Respiratory arrest after receiving Ativan on 10/05/2018 Hypotension now resolved Lumbar cord compression likely secondary to large herniated disc, with lower extremity weakness Right L2/L3 discectomy 10/04/2018 for removal residual disc at right L2/3 s/p L2-5 revision fusion and left L2/3 discectomy on 10/02/18. Hypotension on pressors History of previous lumbar posterior fusion and microdiscectomy by Dr. Hansen Acute on chronic kidney disease Anemia requiring transfusion History of prostate cancer COPD History of hypertension PLAN: NEURO: -MRI showing large herniated disc at L2/3 and flex/ex showing instability at this level. -s/p L2-5 revision fusion and left L2/3 discectomy on 10/02/18. -post-op MRI with significant disc herniation at right L2/3 despite resection, Right L2/L3 discectomy 10/04/2018 -Spinal precautions -Currently sedated with Versed and fentanyl. -Start Precedex to facilitate vent weaning, add Seroquel 50 twice daily -Neurosurgery Dr. Peter. Dr. Hansen following now -Ketty went on a bowl to take p.o. atypical antipsychotic. RESP: -Extubated 10/05/18 however became unresponsive and hypoxic after receiving Ativan for agitation -Emergently reintubated and placed on mechanical ventilation -Currently on PRVC/AC -Initiate spontaneous weaning trial after starting Precedex -DuoNeb every 6 hours scheduled and as needed -Scheduled Solu-Medrol for COPD -Aggressive pulmonary toilet -f/u sputum culture, continue empiric cefepime -Extubate again 10/07 -Required reintubation 5 hours after extubation due to secretions and hypoxemia. Situation made worse by underlying agitation. CV: -Maintain Levophed to keep map above 65 -Cardiac decompensation most likely secondary to pulmonary rest -Discontinue IV fluid, give IV Lasix 40 mg x1 GI: -N.p.o., IV famotidine. Start tube feeds if not extubated today -Bowel regimen : -Monitor renal function closely. -IV hydration will be discontinued and IV Lasix as above -Maintain [place] for hourly intake output, monitor creatinine closely ID: -Sputum culture, continue cefepime 2 g IV every 8 hours HEME: -Transfuse 1 unit PRBC -Monitor CBC, coags ENDO: -Electrolyte replacement per protocol PROPH: -Bilateral lower extremity SCDs. No chemical DVT prophylaxis due to spinal surgery/continue famotidine LINES: -Utilize peripheral IVs, central line if needed -PT evaluate and treat Patient remains critical. Post extubation very agitated received Ativan developed respiratory arrest followed by near cardiac collapse. Reintubated resuscitated and placed on mechanical ventilation. Weaning has been difficult given probably severe COPD never diagnosed. Currently receiving breathing treatments antibiotics and IV steroids. Hold Precedex, extubated. Sats 94%, P 74. After 5 hours he is failed and is severely agitated with pulse rate 154 and blood pressure 190s. His oxygen saturation in the low 80% range with labored breathing and he will require reintubation. He is critically ill and ventilator dependent at this time. Critical care time 40 minutes aside from procedures.
[2018-10-07] MEDS: Chlorhexidine 0.12% Oral Kit 15 ML UDC OROPHARYNG SCH ×2 (08:28→19:57)
[2018-10-07] MEDS: Famotidine PF Inj 20 MG/2 ML Vial IV.PUSH SCH ×2 (09:13→20:19)
[2018-10-07] MEDS: Sodium Chloride 0.9% 2 ML Flush BID IV.FLUSH SCH ×2 (09:13→20:19)
[2018-10-07] MEDS: QUEtiapine 25 MG Tablet PO SCH ×2 (09:14→20:19)
[2018-10-07] MEDS: Senna/Docusate Sodium 8.6/50 MG Tablet PO SCH ×2 (09:14→20:19)
--- NOTE | 2018-10-07 09:19 | P.PNNS ---
Subjective Interval history: extubated, agitated, restrained, eyes open and moving extremities but not focusing or following commands. Physical Exam Vital signs: Vital Signs 10/06/18 09:16 10/06/18 10:00 10/06/18 10:35 Temperature 98.2 F 98.2 F Pulse Rate 53 L 53 L 54 L Respiratory Rate 16 Pulse Oximetry 94 L 94 L 10/06/18 11:00 10/06/18 11:46 10/06/18 12:00 Temperature 98.6 F Pulse Rate 51 L 55 L Respiratory Rate 16 Pulse Oximetry 94 L 92 L 92 L 10/06/18 13:00 10/06/18 14:00 10/06/18 15:00 Temperature Pulse Rate 54 L 55 L 66 Respiratory Rate Pulse Oximetry 93 L 93 L 93 L 10/06/18 15:11 10/06/18 15:12 10/06/18 16:00 Temperature 98.6 F Pulse Rate 65 66 Respiratory Rate 16 16 Pulse Oximetry 93 L 94 L 10/06/18 17:00 10/06/18 18:00 10/06/18 18:30 Temperature Pulse Rate 58 L 62 61 Respiratory Rate Pulse Oximetry 93 L 93 L 93 L 10/06/18 19:00 10/06/18 19:05 10/06/18 19:30 Temperature Pulse Rate 58 L 58 L 64 Respiratory Rate 16 Pulse Oximetry 93 L 93 L 93 L 10/06/18 20:00 10/06/18 20:30 10/06/18 21:00 Temperature 98.3 F Pulse Rate 62 60 60 Respiratory Rate Pulse Oximetry 93 L 93 L 93 L 10/06/18 21:30 10/06/18 22:00 10/06/18 22:30 Temperature Pulse Rate 70 55 L 55 L Respiratory Rate Pulse Oximetry 94 L 92 L 93 L 10/06/18 23:00 10/06/18 23:30 10/07/18 00:00 Temperature 98.1 F Pulse Rate 66 59 L 57 L Respiratory Rate Pulse Oximetry 94 L 93 L 94 L 10/07/18 00:30 10/07/18 00:34 10/07/18 00:35 Temperature Pulse Rate 56 L 56 L Respiratory Rate 16 16 Pulse Oximetry 95 95 10/07/18 01:00 10/07/18 01:30 10/07/18 02:00 Temperature Pulse Rate 62 59 L 59 L Respiratory Rate Pulse Oximetry 95 95 94 L 10/07/18 02:30 10/07/18 03:00 10/07/18 03:30 Temperature Pulse Rate 57 L 58 L 56 L Respiratory Rate Pulse Oximetry 95 96 95 10/07/18 03:51 10/07/18 03:52 10/07/18 04:00 Temperature 98.3 F Pulse Rate 56 L 58 L Respiratory Rate 17 16 Pulse Oximetry 94 L 94 L 10/07/18 04:30 10/07/18 04:45 10/07/18 05:00 Temperature Pulse Rate 61 59 L 59 L Respiratory Rate Pulse Oximetry 94 L 94 L 92 L 10/07/18 05:15 10/07/18 05:30 10/07/18 05:45 Temperature Pulse Rate 58 L 62 65 Respiratory Rate Pulse Oximetry 93 L 94 L 93 L 10/07/18 06:00 10/07/18 06:15 10/07/18 06:30 Temperature Pulse Rate 68 84 100 H Respiratory Rate Pulse Oximetry 93 L 92 L 10/07/18 06:45 10/07/18 07:00 10/07/18 07:15 Temperature Pulse Rate 149 H 120 H 131 H Respiratory Rate Pulse Oximetry 85 L 89 L 86 L 10/07/18 08:18 Temperature Pulse Rate 87 Respiratory Rate 28 H Pulse Oximetry 92 L Intake & Output 10/06/18 10/07/18 10/07/18 18:59 06:59 18:59 Intake Total 1755 / 1755 1776 / 1776 Output Total 1350 / 1350 600 / 600 Balance 405 / 405 1176 / 1176 Weight 94.5 kg Intake: IV 833 / 833 1000 / 1000 Precedex Inj 200 MCG In NS Inj 250 / 250 400 / 400 48 ML @ 0.2 MCG/KG/HR 4.58 mls/ hr IV.CONT TITRATE PRN Rx#: [id number] NS Inj 1,000 ML @ 84 mls/hr IV. 133 / 133 CONT .[id number] [facility] Rx#:[id number] Maxipime Inj 2,000 MG In NS Inj 200 / 200 100 / 100 100 ML @ 200 mls/hr IV.SIG Q8H [facility] Rx#:[id number] Levophed-Dextrose 4 mg/250 ml 250 / 250 Drip 4 mg In 250 ml @ 2 MCG/MIN 7.5 mls/hr IV.SIG TITRATE PRN Rx#:[id number] NS Inj 250 ML @ 15 mls/hr IV. 250 / 250 SIG ONCE [facility] Rx#:[id number] fentaNYL 10 mcg/mL Premix Drip 250 / 250 2,500 mcg In 250 ml @ 50 MCG/HR 5 mls/hr IV.SIG TITRATE PRN Rx #:[id number] Tube Feeding 472 / 472 536 / 536 Water Bolus Amount 240 / 240 Other 50 / 50 Rbc As-3 Leukoreduced Unit 50 / 50 [id number] Intake (Blood Product) Amt 400 / 400 Rbc As-3 Leukoreduced Unit 400 / 400 [id number] Output: Urine Amount (Catheter) 1350 / 1350 600 / 600 Indwelling Urethral Catheter 1350 / 1350 600 / 600 Other: # Bowel Movements 0 Narrative: eyes open pupils 3-4 mm equal b/l not focusing, not following commands, no eye tracking agitated, moves all four extremities off the bed, on soft restraint plantars silent bilaterally nursing report wound clean and dry, no drainage - Urinary Catheter Management Indwelling Urethral Catheter Cath placed during this visit: yes Reason for continuing: Hourly intake/output Insertion date: 10/02/18 Insertion time: 20:32 Assessment and Plan - Plan 73yoM po (10/02/18) L2-5 revision fusion and left L2/3 discectomy cont critical care cont neuro checks cont supportive care ok to start lovenox for dvt prophylaxis
[2018-10-07] MEDS ORDERED: Midazolam Inj 5 MG/ML 1 ML Vial ONE (10:43)
[2018-10-07] MEDS ORDERED: Midazolam Inj 5 MG/ML 1 ML Vial IV.PUSH ONE (11:00)
--- NOTE | 2018-10-07 11:30 | XR ---
EXAM DATE: 10/07/2018 11:24 AM EST AGE/SEX: 73 years / Male INDICATIONS: Post intubation. Evaluate et tube placement. CLINICAL DATA: This is the patient's initial encounter. Patient reports that signs and symptoms have been present for 1 day and indicates a pain score of Nonresponsive. MEDICAL/SURGICAL HISTORY: Non-responsive. Non-responsive. COMPARISON: [facility] [place], CHEST 1V SINGLE AP, 10/06/2018. . FINDINGS: Single view the chest some shows the ET tube, NG tube and right subclavian central line are in good p osition. There is bilateral perihilar vascular congestion. There is no visible pneumothorax. CONCLUSION: Tubes and catheters in good position. Diffuse perihilar vascular congestion. Electronically signed by: Kyle Day MD 10/07/2018 11:29 AM EST
[2018-10-07] MEDS: Propofol 1000 mg/100 ml Inj 1,000 MG/100 ML BOTTLE IV.CONT PRN ×4 (11:42→22:32)
[2018-10-07] MEDS ORDERED: RASS Change Order OTHER ONE (12:00)
--- NOTE | 2018-10-07 13:40 | P.PCN ---
Procedure: DX: Recurrent acute hypoxemic respiratory failure Procedure: Orotracheal intubation with #8 tube Narrative: Timeout performed, patient properly identified. Patient was extubated about 5 hours ago but is struggled to clear his airway and breathe comfortably since that time. He is severely agitated yet remains unresponsive to most sedatives and narcotics. Atypical antipsychotics have not been effective. At this juncture he is unable to clear his secretions adequately and shows hypoxemic respiratory failure. Gentle bag mask ventilation while Versed 5 mg intravenous administered. Rocuronium 50 mg administered and patient intubated in the orotracheal route with a #8 tube. Position confirmed with CO2 detection, bilateral breath sounds, oxygen saturation 100%. Chest x- ray ordered, will review.
[2018-10-07] MEDS: fentaNYL 10 mcg/mL Premix Drip 2,500 MCG/250 ML BAG IV.SIG PRN ×2 (15:03)
[2018-10-07] MEDS: Morphine Sulfate Inj 2 MG/ML Vial IV.PUSH PRN (21:47)
[2018-10-08] MEDS: fentaNYL 10 mcg/mL Premix Drip 2,500 MCG/250 ML BAG IV.SIG PRN ×3 (00:41→19:50)
[2018-10-08] MEDS: Propofol 1000 mg/100 ml Inj 1,000 MG/100 ML BOTTLE IV.CONT PRN ×6 (01:49→20:33)
[2018-10-08] MEDS: Oral Hygiene Kit OROPHARYNG SCH ×4 (03:49→23:37)
[2018-10-08] MEDS: MethylPREDNISolone Sod Succinate Inj 40 MG/ML Vial IV.PUSH SCH ×3 (05:05→21:14)
--- NOTE | 2018-10-08 07:39 | P.PNCC ---
Subjective Subjective Remarks/Hospital Course: Patient is a 73-year-old male with past medical history significant for hypertension, COPD, Prostate carcinoma, history of previous lumbar laminectomy who came to the [place] emergency department as a transfer from transfer from [facility]. He was accepted by neurosurgery Dr. Peter for acute onset bilateral lower extremity weakness. Patient states that he woke up this morning around 6 AM with numbness and weakness of bilateral lower extremity. On attempt to walk he fell on his face due to weakness. Patient states that the strength got slight better since then. CT scan of the lumbar spine large area of soft attenuation attenuation in the ventral epidural space L2-L3 level suspicious for large disc extrusion with spinal canal stenosis with differential diagnosis involving hemorrhage, there is also at least moderate bilateral neural foraminal stenosis. I evaluate the patient in the ED. He complains of weakness more on the left leg which he is unable to lift. There is generalized numbness but he is able to feel my touch. Critical care was requested to admit the patient to the ICU. Discussed with Dr. Mittal ED and Dr. Peter neurosurgery. A stat MRI of the lumbar spine had been ordered. 10/03: Remains intubated sedated. Remains on Levophed at 10 mcg/min to maintain map above 70. Patient is s/p L2 to L5 posterior spinal fusion, Left L2 /3 microdiscectomy. (MRI showed large herniated disc at L2/3 and flex/ex showing instability at this level). On sedation hold patient is moving all 4 extremities. Hb 8.3 will transfuse 1 unit PRBC due to hypotension 10/04: Remains intubated sedated remains on 8 mcg/min of Levophed to maintain map above 75. Transfusing 1 unit PRBC for hemoglobin 7.4. post-op MRI with significant disc herniation at L2/3. Scheduled for surgery today with Dr. Peter 10/05: Patient underwent surgery on 10/04/2018 for removal residual disc at L2/ 3 right side based on post-op MRI. (s/p L2-5 revision fusion and left L2/3 discectomy on 10/02/18). Today patient's hypoxemia had improved, he was awake but on lightening sedation was very agitated so after a short CPAP trial patient was extubated. Shortly after extubation patient became very agitated requiring four-point restraints and physically nurses having to restrain him. 2 mg IV Ativan was given following which patient became partially responsive with obstructive airway sounds. Shortly became hypoxemic desaturated, became bradycardic in 40s and systolic blood pressure does drop to mid 40s. I was emergently called to the bedside I started bag and mask ventilation immediately. Half ampule of epinephrine was post IV. His heart rate in systolic blood pressure improved with bag and mask ventilation and epinephrine push however he remained unresponsive. Emergently intubated and placed on mechanical ventilation. Once more responsive will start on sedation with Versed. Start Levophed to maintain map above 65. Postintubation chest x-ray is pending. 10/06: Remains intubated heavily sedated for vent synchrony. Patient gets very agitated on holding sedation. We will start Precedex to facilitate vent weaning. Hemoglobin is 7.1, 1 unit of PRBC followed by IV Lasix ordered. 10/07: Agitated. TVs > 1.0 liter spontaneous. Extubated. Patient required reintubation about 5 hours later due to hypoxemia. 10/08: Intubated for the third time last evening. He is unable to tolerate extubation due to a combination of underlying lung disease and severe agitation. If the family wishes to proceed he will require tracheostomy for safe weaning from the ventilator. His baseline mental status is apparently pretty close to normal. Objective Vital Signs / I&O: Vital Signs 10/07/18 08:00 10/07/18 08:18 10/07/18 09:00 Temperature 99.2 F Pulse Rate 148 H 87 143 H Respiratory Rate 28 H Blood Pressure Pulse Oximetry 85 L 92 L 94 L 10/07/18 10:00 10/07/18 11:00 10/07/18 11:15 Temperature Pulse Rate 159 H 135 H 150 H Respiratory Rate Blood Pressure Pulse Oximetry 90 L 90 L 95 10/07/18 11:19 10/07/18 11:30 10/07/18 11:45 Temperature Pulse Rate 154 H 147 H Respiratory Rate 16 Blood Pressure Pulse Oximetry 90 L 94 L 92 L 10/07/18 11:49 10/07/18 12:00 10/07/18 12:15 Temperature 99.6 F Pulse Rate 114 H 110 H 103 H Respiratory Rate 16 Blood Pressure 112/59 L Pulse Oximetry 94 L 97 98 10/07/18 12:30 10/07/18 12:45 10/07/18 13:00 Temperature Pulse Rate 109 H 100 H 87 Respiratory Rate 16 16 16 Blood Pressure Pulse Oximetry 98 98 98 10/07/18 13:15 10/07/18 13:30 10/07/18 13:45 Temperature Pulse Rate 82 81 80 Respiratory Rate 16 16 16 Blood Pressure Pulse Oximetry 99 100 100 10/07/18 14:00 10/07/18 14:15 10/07/18 14:30 Temperature Pulse Rate 79 78 76 Respiratory Rate 16 16 Blood Pressure Pulse Oximetry 100 100 100 10/07/18 14:45 10/07/18 15:00 10/07/18 15:15 Temperature Pulse Rate 76 75 72 Respiratory Rate 16 16 16 Blood Pressure Pulse Oximetry 100 100 100 10/07/18 15:30 10/07/18 15:45 10/07/18 15:57 Temperature Pulse Rate 72 69 68 Respiratory Rate 16 16 17 Blood Pressure Pulse Oximetry 100 100 100 10/07/18 16:00 10/07/18 16:15 10/07/18 16:30 Temperature Pulse Rate 68 77 73 Respiratory Rate 17 17 Blood Pressure Pulse Oximetry 100 98 97 10/07/18 16:45 10/07/18 17:00 10/07/18 17:15 Temperature Pulse Rate 101 H 89 112 H Respiratory Rate Blood Pressure Pulse Oximetry 98 95 98 10/07/18 17:30 10/07/18 17:45 10/07/18 18:00 Temperature Pulse Rate 89 112 H 90 Respiratory Rate Blood Pressure Pulse Oximetry 97 97 97 10/07/18 18:15 10/07/18 18:30 10/07/18 18:45 Temperature Pulse Rate 69 65 66 Respiratory Rate Blood Pressure Pulse Oximetry 96 95 97 10/07/18 19:00 10/07/18 19:15 10/07/18 19:30 Temperature Pulse Rate 63 62 63 Respiratory Rate Blood Pressure Pulse Oximetry 96 96 97 10/07/18 19:45 10/07/18 19:48 10/07/18 19:49 Temperature Pulse Rate 62 62 Respiratory Rate 18 18 Blood Pressure Pulse Oximetry 97 97 10/07/18 20:00 10/07/18 20:15 10/07/18 20:30 Temperature 98.6 F Pulse Rate 62 67 68 Respiratory Rate Blood Pressure Pulse Oximetry 97 97 98 10/07/18 20:45 10/07/18 21:00 10/07/18 21:15 Temperature Pulse Rate 66 67 98 H Respiratory Rate Blood Pressure Pulse Oximetry 97 96 100 10/07/18 21:30 10/07/18 21:45 10/07/18 22:00 Temperature Pulse Rate 75 92 H 74 Respiratory Rate Blood Pressure Pulse Oximetry 99 100 99 10/07/18 22:15 10/07/18 22:30 10/07/18 22:45 Temperature Pulse Rate 68 64 60 Respiratory Rate Blood Pressure Pulse Oximetry 97 97 96 10/07/18 23:00 10/07/18 23:15 10/07/18 23:30 Temperature Pulse Rate 60 60 57 L Respiratory Rate Blood Pressure Pulse Oximetry 96 96 96 10/07/18 23:45 10/08/18 00:00 10/08/18 00:15 Temperature 98.7 F Pulse Rate 58 L 57 L 58 L Respiratory Rate Blood Pressure Pulse Oximetry 92 L 94 L 94 L 10/08/18 00:26 10/08/18 00:30 10/08/18 00:45 Temperature Pulse Rate 56 L 58 L 58 L Respiratory Rate 16 Blood Pressure Pulse Oximetry 90 L 97 10/08/18 00:56 10/08/18 01:00 10/08/18 01:15 Temperature Pulse Rate 67 66 Respiratory Rate 16 Blood Pressure Pulse Oximetry 93 L 100 95 10/08/18 01:30 10/08/18 01:45 10/08/18 02:00 Temperature Pulse Rate 64 64 63 Respiratory Rate Blood Pressure Pulse Oximetry 96 95 94 L 10/08/18 02:15 10/08/18 02:30 10/08/18 02:45 Temperature Pulse Rate 61 62 58 L Respiratory Rate Blood Pressure Pulse Oximetry 98 95 91 L 10/08/18 03:00 10/08/18 03:15 10/08/18 03:30 Temperature Pulse Rate 58 L 58 L 59 L Respiratory Rate Blood Pressure Pulse Oximetry 94 L 91 L 97 10/08/18 03:45 10/08/18 03:56 10/08/18 03:58 Temperature Pulse Rate 56 L 61 Respiratory Rate 16 16 Blood Pressure Pulse Oximetry 90 L 90 L 10/08/18 04:00 10/08/18 04:15 10/08/18 04:30 Temperature Pulse Rate 56 L 58 L 59 L Respiratory Rate Blood Pressure Pulse Oximetry 97 90 L 90 L 10/08/18 04:45 10/08/18 05:00 10/08/18 05:15 Temperature Pulse Rate 62 58 L 56 L Respiratory Rate Blood Pressure Pulse Oximetry 91 L 93 L 93 L 10/08/18 05:30 10/08/18 05:45 10/08/18 06:00 Temperature Pulse Rate 56 L 55 L 56 L Respiratory Rate Blood Pressure Pulse Oximetry 94 L 94 L 94 L 10/08/18 06:15 10/08/18 06:30 10/08/18 06:45 Temperature Pulse Rate 54 L 52 L 52 L Respiratory Rate Blood Pressure Pulse Oximetry 94 L 94 L 95 10/08/18 07:25 10/08/18 07:27 Temperature Pulse Rate 51 L Respiratory Rate 16 16 Blood Pressure Pulse Oximetry 96 Intake & Output 10/07/18 10/08/18 10/08/18 18:59 06:59 18:59 Intake Total 550 / 550 1060 / 1060 Output Total 750 / 750 650 / 650 Balance -200 / -200 410 / 410 Weight 94.4 kg Intake: IV 550 / 550 1000 / 1000 Diprivan 1000 mg/100 ml Inj 1, 100 / 100 400 / 400 000 mg In 100 ml @ 5 MCG/KG/MIN 2.835 mls/hr IV.CONT TITRATE PRN Rx#:[id number] Maxipime Inj 2,000 MG In NS Inj 200 / 200 100 / 100 100 ML @ 200 mls/hr IV.SIG Q8H ERIKA Rx#:[id number] Levophed-Dextrose 4 mg/250 ml 250 / 250 Drip 4 mg In 250 ml @ 2 MCG/MIN 7.5 mls/hr IV.SIG TITRATE PRN Rx#:[id number] fentaNYL 10 mcg/mL Premix Drip 250 / 250 250 / 250 2,500 mcg In 250 ml @ 50 MCG/HR 5 mls/hr IV.SIG TITRATE PRN Rx #:[id number] Water Bolus Amount 60 / 60 Output: Urine Amount (Catheter) 600 / 600 450 / 450 Indwelling Urethral Catheter 600 / 600 450 / 450 Gastric Drainage 150 / 150 200 / 200 Orogastric Tube 150 / 150 200 / 200 Other: # Bowel Movements 0 Result Diagrams: 10/07/18 03:26 10/07/18 03:26 Objective Remarks: GENERAL: Elderly gentleman, sedated for vent synchrony SKIN: warm/dry. HEAD: Normocephalic. Atraumatic EYES: No injection or drainage. ENT: Orotracheally intubated, supple NECK: Supple, trachea midline. CARDIOVASCULAR: S1-S2 normal no murmurs. No JVD RESPIRATORY: Barrel-shaped chest. Air entry equal bilaterally, few scattered rhonchi, no wheezes GASTROINTESTINAL: Abdomen soft, non-tender, nondistended. MUSCULOSKELETAL: No cyanosis, or edema. Warm, well-perfused. NEURO: Intubated lightly sedated for vent synchrony. Tolerate spontaneous breathing trials. Moves all 4 limbs with purpose. 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 Code(s): M47.16 - Other spondylosis with myelopathy, lumbar region Status: Acute (2) Weakness of lower extremity Code(s): R29.898 - Other symptoms and signs involving the musculoskeletal system Status: Acute (3) COPD (chronic obstructive pulmonary disease) Code(s): J44.9 - Chronic obstructive pulmonary disease, unspecified Status: Chronic (4) History of prostate cancer Code(s): Z85.46 - Personal history of malignant neoplasm of prostate Status: Chronic (5) History of hypertension Code(s): Z86.79 - Personal history of other diseases of the circulatory system Status: Chronic - Assessment and Plan Plan: ASSESSMENT: Acute hypoxemic hypercarbic/hypoxemic respiratory failure Respiratory arrest after receiving Ativan on 10/05/2018 Hypotension now resolved Lumbar cord compression likely secondary to large herniated disc, with lower extremity weakness Right L2/L3 discectomy 10/04/2018 for removal residual disc at right L2/3 s/p L2-5 revision fusion and left L2/3 discectomy on 10/02/18. Hypotension on pressors History of previous lumbar posterior fusion and microdiscectomy by Dr. Hansen Acute on chronic kidney disease Anemia requiring transfusion History of prostate cancer COPD History of hypertension PLAN: NEURO: -MRI showing large herniated disc at L2/3 and flex/ex showing instability at this level. -s/p L2-5 revision fusion and left L2/3 discectomy on 10/02/18. -post-op MRI with significant disc herniation at right L2/3 despite resection, Right L2/L3 discectomy 10/04/2018 -Spinal precautions -Currently sedated with Versed and fentanyl. -Start Precedex to facilitate vent weaning, add Seroquel 50 twice daily -Neurosurgery Dr. Peter. Dr. Hansen following now -Ketty went on hold, to take p.o. atypical antipsychotic Seroquel RESP: -Extubated 10/05/18 however became unresponsive and hypoxic after receiving Ativan for agitation -Emergently reintubated and placed on mechanical ventilation -Currently on PRVC/AC -Initiate spontaneous weaning trial after starting Precedex -DuoNeb every 6 hours scheduled and as needed -Scheduled Solu-Medrol for COPD -Aggressive pulmonary toilet -f/u sputum culture, continue empiric cefepime -Extubate again 10/07 -Required reintubation 5 hours after extubation due to secretions and hypoxemia. Situation made worse by underlying agitation. -We will discuss tracheostomy with family today. CV: -Maintain Levophed to keep map above 65 -Cardiac decompensation most likely secondary to pulmonary problems, he hypoxemia - GI: -N.p.o., IV famotidine. Start tube feeds -Bowel regimen : -Monitor renal function closely. -IV hydration will be discontinued and IV Lasix as above -Maintain [place] for hourly intake output, monitor creatinine closely ID: -Sputum culture, continue cefepime 2 g IV every 8 hours HEME: -Transfused 1 unit PRBC -Monitor CBC, coags ENDO: -Electrolyte replacement per protocol PROPH: -Bilateral lower extremity SCDs. No chemical DVT prophylaxis due to spinal surgery/continue famotidine LINES: -Utilize peripheral IVs, central line if needed -PT evaluate and treat Patient remains critically ill. Patient remains ventilator dependent and we have been unable to keep him extubated for more than a few hours. He will require tracheostomy for long-term vent weaning. His baseline mental status was quite good prior to this and so far the family has requested ongoing aggressive care. Critical care time 38 minutes aside from procedures.
[2018-10-08] MEDS: QUEtiapine 25 MG Tablet PO SCH ×2 (09:03→20:34)
[2018-10-08] MEDS: Chlorhexidine 0.12% Oral Kit 15 ML UDC OROPHARYNG SCH ×2 (09:04→19:51)
[2018-10-08] MEDS: Senna/Docusate Sodium 8.6/50 MG Tablet PO SCH ×2 (09:04→20:34)
[2018-10-08] MEDS: Sodium Chloride 0.9% 2 ML Flush BID IV.FLUSH SCH ×2 (09:04→20:34)
[2018-10-08] MEDS: Famotidine PF Inj 20 MG/2 ML Vial IV.PUSH SCH ×2 (09:04→20:33)
[2018-10-08] MEDS: Midazolam 50 MG/50 ML Inj 50 MG/50 ML BAG IV.CONT PRN ×2 (10:12→16:55)
[2018-10-08] MEDS: hydrALAZINE HCl Inj 20 MG/ML Vial IV.PUSH PRN ×3 (10:17→22:55)
[2018-10-08] MEDS ORDERED: fentaNYL Citrate Inj 100 MCG/2 ML Ampul ONE (11:15)
[2018-10-08] MEDS ORDERED: Midazolam Inj 5 MG/ML 1 ML Vial ONE (11:15)
--- NOTE | 2018-10-08 12:27 | P.PCN ---
Date of procedure: 10/08/18 Pre-op diagnosis: Acute hypoxemic resp failure, three reintubation Post-op diagnosis: same Procedure: Percutaneous tracheostomy bronchoscopy guided: The procedure was done in the intensive care unit at the bedside with intravenous anesthesia. Patient had been intubated/reintubated x3 due to failed extubations from severe COPD, anxiety. Unsafe to extubate as patient had pulmonary arrest and near cardiac arrest following extubation. Continuous sedation with Versed infusion and fentanyl infusion, additional sedation with with IV Versed 5 mg IV, Fentanyl 100 mcg IV and Rocuronium 50 mg IV. The patient was then positioned in the manner for maximum exposure of the anterior portion of the neck, with neck hyperextended. The neck was then prepped and draped in the usual sterile fashion with chlorhexidine. Local anesthesia consisting of 1% lidocaine with epinephrine was injected into the subcutaneous tissue at approximate position of the initial skin incision. The patients anterior neck was then palpated for the cricoid cartilage and the tracheal rings just below it. A small vertical incision was made measuring approximately 1.5 cm through the skin and into the subcutaneous tissue. Upon palpation of the second and third ring, the Angiocath was inserted. Angiocath was introduced easily with good drawback of air. The bronchoscopy was used to visualize the entry of the Angiocath. The needle and syringe were then removed with the Angiocath in place. A guidewire was then threaded into the tracheal airway. Serial dilation was done using the dilator. After complete dilation was performed, the tracheostomy tube was then passed over the wire. A #8 Shiley tracheostomy tube was then placed into the airway. The guidewire was then removed. Bronchoscopy was again used to visualize the placement of the tracheostomy tube. The ventilator circuit was then connected to the tracheostomy. The bronchoscope was used for the last time to assess for tracheostomy tube placement. The tracheostomy cuff was then inflated. The tracheostomy tube was then sutured at the skin in four quadrants with a 2-0 silk suture. The tracheostomy tube was then further secured into place with a neck band. Throughout this procedure, the patient did not have any desaturations. The patient tolerated the procedure well without any complications. A chest x-ray was ordered Anesthesia: local Surgeon: Alysa Welsh Estimated blood loss (mL): 2 Pathology: none sent Condition: critical Disposition: ICU
--- NOTE | 2018-10-08 12:40 | P.PCN ---
Procedure: Diagnosis: Acute hypoxemic respiratory failure Procedure: Flexible fiberoptic bronchoscopy Narrative: Timeout performed, patient suitably identified. Patient in the ICU on mechanical ventilation through orotracheal intubation with the usual ICU monitoring devices in place. Through a side-port in the ventilator circuit the bronchoscope was delivered into the tracheobronchial tree. There was a large amount of white thick secretions suctioned from both sides. The mucosa on both sides was moderately inflamed and there were many inspissated secretions which were suctioned free. The main trachea was mildly inflamed but otherwise normal. The bronchoscope with the endotracheal tube were withdrawn to the level of the cricoid cartilage. This position was used as guidance for a percutaneous tracheostomy performed by another team. Following the insertion of the trach tube the bronchoscope was delivered down the new tracheostomy tube and confirmed good position in the mid trachea safely above the jessica. There was no bleeding. Inner cannula was then inserted and the trach tube and ventilation return through the new circuit. Good tidal volume returns were noted on the ventilator, oxygen saturation was maintained greater than 95% throughout the procedure. The patient was left on mechanical ventilation after the procedure.
--- NOTE | 2018-10-08 12:56 | XR ---
EXAM DATE: 10/08/2018 12:45 PM EST AGE/SEX: 73 years / Male INDICATIONS: Tracheostomy placement. CLINICAL DATA: This is the patient's subsequent encounter. Patient reports that signs and symptoms h ave been present for 3 days and indicates a pain score of Nonresponsive. MEDICAL/SURGICAL HISTORY: Non-responsive. Non-responsive. [place] [facility] [place]07/[place]. . FINDINGS: Tracheostomy tube is noted in good position with its tip approximately 4 cm above the jessica. Right s ubclavian central line has its tip in superior vena cava. Diffuse bilateral pulmonary infiltrates are noted consistent with pulmonary edema versus pneumonia. The heart is enlarged. CONCLUSION: 1. Diffuse bilateral pulmonary infiltrates are noted consistent with pulmonary edema versus pneumoni a. 2. Cardiomegaly. 3. Tracheostomy tube in good position 4 cm above the jessica. Electronically signed by: William Espinoza MD 10/08/2018 12:54 PM EST
[2018-10-08] MEDS ORDERED: fentaNYL Citrate Inj 100 MCG/2 ML Ampul IV.PUSH ONE (13:15)
[2018-10-08] MEDS ORDERED: Midazolam Inj 5 MG/ML 1 ML Vial IV.PUSH ONE (13:15)
--- NOTE | 2018-10-08 15:18 | P.PNNS ---
Subjective Interval history: reintubated due to poor respiratory status <Angelica Boyce - Last Filed: 10/12/18 11:18> Physical Exam Vital signs: Vital Signs 10/07/18 15:15 10/07/18 15:30 10/07/18 15:45 Temperature Pulse Rate 72 72 69 Respiratory Rate 16 16 16 Pulse Oximetry 100 100 100 10/07/18 15:57 10/07/18 16:00 10/07/18 16:15 Temperature Pulse Rate 68 68 77 Respiratory Rate 17 17 17 Pulse Oximetry 100 100 98 10/07/18 16:30 10/07/18 16:45 10/07/18 17:00 Temperature Pulse Rate 73 101 H 89 Respiratory Rate Pulse Oximetry 97 98 95 10/07/18 17:15 10/07/18 17:30 10/07/18 17:45 Temperature Pulse Rate 112 H 89 112 H Respiratory Rate Pulse Oximetry 98 97 97 10/07/18 18:00 10/07/18 18:15 10/07/18 18:30 Temperature Pulse Rate 90 69 65 Respiratory Rate Pulse Oximetry 97 96 95 10/07/18 18:45 10/07/18 19:00 10/07/18 19:15 Temperature Pulse Rate 66 63 62 Respiratory Rate Pulse Oximetry 97 96 96 10/07/18 19:30 10/07/18 19:45 10/07/18 19:48 Temperature Pulse Rate 63 62 62 Respiratory Rate 18 Pulse Oximetry 97 97 10/07/18 19:49 10/07/18 20:00 10/07/18 20:15 Temperature 98.6 F Pulse Rate 62 67 Respiratory Rate 18 Pulse Oximetry 97 97 97 10/07/18 20:30 10/07/18 20:45 10/07/18 21:00 Temperature Pulse Rate 68 66 67 Respiratory Rate Pulse Oximetry 98 97 96 10/07/18 21:15 10/07/18 21:30 10/07/18 21:45 Temperature Pulse Rate 98 H 75 92 H Respiratory Rate Pulse Oximetry 100 99 100 10/07/18 22:00 10/07/18 22:15 10/07/18 22:30 Temperature Pulse Rate 74 68 64 Respiratory Rate Pulse Oximetry 99 97 97 10/07/18 22:45 10/07/18 23:00 10/07/18 23:15 Temperature Pulse Rate 60 60 60 Respiratory Rate Pulse Oximetry 96 96 96 10/07/18 23:30 10/07/18 23:45 10/08/18 00:00 Temperature 98.7 F Pulse Rate 57 L 58 L 57 L Respiratory Rate Pulse Oximetry 96 92 L 94 L 10/08/18 00:15 10/08/18 00:26 10/08/18 00:30 Temperature Pulse Rate 58 L 56 L 58 L Respiratory Rate 16 Pulse Oximetry 94 L 90 L 10/08/18 00:45 10/08/18 00:56 10/08/18 01:00 Temperature Pulse Rate 58 L 67 Respiratory Rate 16 Pulse Oximetry 97 93 L 100 10/08/18 01:15 10/08/18 01:30 10/08/18 01:45 Temperature Pulse Rate 66 64 64 Respiratory Rate Pulse Oximetry 95 96 95 10/08/18 02:00 10/08/18 02:15 10/08/18 02:30 Temperature Pulse Rate 63 61 62 Respiratory Rate Pulse Oximetry 94 L 98 95 10/08/18 02:45 10/08/18 03:00 10/08/18 03:15 Temperature Pulse Rate 58 L 58 L 58 L Respiratory Rate Pulse Oximetry 91 L 94 L 91 L 10/08/18 03:30 10/08/18 03:45 10/08/18 03:56 Temperature Pulse Rate 59 L 56 L Respiratory Rate 16 Pulse Oximetry 97 90 L 90 L 10/08/18 03:58 10/08/18 04:00 10/08/18 04:15 Temperature Pulse Rate 61 56 L 58 L Respiratory Rate 16 Pulse Oximetry 97 90 L 10/08/18 04:30 10/08/18 04:45 10/08/18 05:00 Temperature Pulse Rate 59 L 62 58 L Respiratory Rate Pulse Oximetry 90 L 91 L 93 L 10/08/18 05:15 10/08/18 05:30 10/08/18 05:45 Temperature Pulse Rate 56 L 56 L 55 L Respiratory Rate Pulse Oximetry 93 L 94 L 94 L 10/08/18 06:00 10/08/18 06:15 10/08/18 06:30 Temperature Pulse Rate 56 L 54 L 52 L Respiratory Rate Pulse Oximetry 94 L 94 L 94 L 10/08/18 06:45 10/08/18 07:00 10/08/18 07:25 Temperature 97.7 F Pulse Rate 52 L Respiratory Rate 16 Pulse Oximetry 95 96 10/08/18 07:27 10/08/18 08:00 10/08/18 11:34 Temperature Pulse Rate 51 L 65 66 Respiratory Rate 16 16 Pulse Oximetry 10/08/18 12:35 10/08/18 12:39 Temperature Pulse Rate Respiratory Rate 16 Pulse Oximetry 99 100 Intake & Output 10/07/18 10/08/18 10/08/18 18:59 06:59 18:59 Intake Total 550 / 550 1060 / 1060 400 / 400 Output Total 750 / 750 650 / 650 Balance -200 / -200 410 / 410 400 / 400 Weight 94.4 kg Intake: IV 550 / 550 1000 / 1000 400 / 400 Versed Inj 50 mg In 50 ml @ 2 50 / 50 MG/HR 2 mls/hr IV.CONT TITRATE PRN Rx#:[id number] Diprivan 1000 mg/100 ml Inj 1, 100 / 100 400 / 400 100 / 100 000 mg In 100 ml @ 5 MCG/KG/MIN 2.835 mls/hr IV.CONT TITRATE PRN Rx#:[id number] Maxipime Inj 2,000 MG In NS Inj 200 / 200 100 / 100 100 ML @ 200 mls/hr IV.SIG Q8H ERIKA Rx#:[id number] Levophed-Dextrose 4 mg/250 ml 250 / 250 Drip 4 mg In 250 ml @ 2 MCG/MIN 7.5 mls/hr IV.SIG TITRATE PRN Rx#:[id number] fentaNYL 10 mcg/mL Premix Drip 250 / 250 250 / 250 250 / 250 2,500 mcg In 250 ml @ 50 MCG/HR 5 mls/hr IV.SIG TITRATE PRN Rx #:[id number] Water Bolus Amount 60 / 60 Output: Urine Amount (Catheter) 600 / 600 450 / 450 Indwelling Urethral Catheter 600 / 600 450 / 450 Gastric Drainage 150 / 150 200 / 200 Orogastric Tube 150 / 150 200 / 200 Other: # Bowel Movements 0 Narrative: intubated, sedated pupils 3-4 mm equal b/l not following commands, plantars silent bilaterally - Urinary Catheter Management Indwelling Urethral Catheter Cath placed during this visit: yes Reason for continuing: Hourly intake/output Insertion date: 10/02/18 Insertion time: 20:32 <Angelica Boyce - Last Filed: 10/12/18 11:18> Vital signs: Vital Signs 10/17/18 22:00 10/17/18 23:00 10/17/18 23:07 Temperature Pulse Rate 102 H 94 H 101 H Respiratory Rate 66 H 21 Pulse Oximetry 97 98 98 10/18/18 00:00 10/18/18 01:00 10/18/18 02:00 Temperature 99.9 F H Pulse Rate 108 H 106 H 113 H Respiratory Rate 43 H 22 21 Pulse Oximetry 97 99 97 10/18/18 03:00 10/18/18 03:17 10/18/18 04:00 Temperature 100.1 F H Pulse Rate 118 H 110 H 117 H Respiratory Rate 20 28 H 23 Pulse Oximetry 100 98 95 10/18/18 05:00 10/18/18 06:00 10/18/18 06:21 Temperature Pulse Rate 120 H 111 H Respiratory Rate 21 22 22 Pulse Oximetry 95 94 L 10/18/18 07:00 10/18/18 08:00 10/18/18 08:06 Temperature 102 F H Pulse Rate 112 H 127 H 125 H Respiratory Rate 27 H 28 H 27 H Pulse Oximetry 93 L 97 96 10/18/18 08:59 10/18/18 09:00 10/18/18 10:00 Temperature 99.4 F Pulse Rate 88 89 88 Respiratory Rate 27 H 23 23 Pulse Oximetry 98 96 98 10/18/18 11:00 10/18/18 11:49 10/18/18 11:51 Temperature 99.6 F 99.6 F Pulse Rate 99 H 92 H 107 H Respiratory Rate 27 H 21 23 Pulse Oximetry 97 95 95 10/18/18 11:55 10/18/18 12:00 10/18/18 12:10 Temperature 99.6 F 99.6 F 97.4 F L Pulse Rate 94 H 95 H 109 H Respiratory Rate 19 27 H 18 Pulse Oximetry 95 95 95 10/18/18 13:00 10/18/18 14:00 10/18/18 15:00 Temperature 99.2 F Pulse Rate 94 H 100 H 97 H Respiratory Rate 23 27 H Pulse Oximetry 96 96 96 10/18/18 16:00 10/18/18 16:49 10/18/18 16:56 Temperature 99.5 F Pulse Rate 112 H 129 H Respiratory Rate 35 H Pulse Oximetry 96 94 L 10/18/18 17:00 10/18/18 18:00 10/18/18 19:18 Temperature Pulse Rate 123 H 117 H 116 H Respiratory Rate 27 H 27 H 29 H Pulse Oximetry 96 95 10/18/18 20:00 Temperature Pulse Rate 80 Respiratory Rate Pulse Oximetry Intake & Output 10/18/18 10/18/18 10/19/18 06:59 18:59 06:59 Intake Total 1461 / 1461 1798 / 1798 1100 / 1100 Output Total 1170 / 1170 1140 / 1140 Balance 291 / 291 658 / 658 1100 / 1100 Weight 95 kg Intake: IV 1200 / 1200 915 / 915 1100 / 1100 LR 1000 mL Inj 1,000 ML @ 100 1000 / 1000 300 / 300 1000 / 1000 mls/hr IV.CONT .Q10H ERIKA Rx#: [id number] Azactam Inj 2,000 MG In NS Inj 200 / 200 100 / 100 100 / 100 100 ML @ 200 mls/hr IV.SIG Q8H ERIKA Rx#:[id number] Vancomycin Inj 1,500 MG In NS 515 / 515 Inj 500 ML @ 250 mls/hr IV.SIG Q24H ERIKA Rx#:[id number] Tube Feeding 141 / 141 483 / 483 Water Bolus Amount 120 / 120 Intake (Blood Product) Amt 400 / 400 Rbc As-3 Leukoreduced Unit 400 / 400 [id number] Output: Stool 0 / 0 Urine Amount (Catheter) 1000 / 1000 1050 / 1050 Indwelling Urethral Catheter 1000 / 1000 1050 / 1050 Wound Drainage 170 / 170 90 / 90 Posterior Lumbar 170 / 170 90 / 90 Other: Date of Last Bowel Movement 10/16/18 10/16/18 # Bowel Movements 0 # Incontinent Bowel Movements 0 - Urinary Catheter Management Indwelling Urethral Catheter Cath placed during this visit: no <Jorden Hansen - Last Filed: 10/18/18 21:17> Assessment and Plan - Plan 73yoM po (10/02/18) L2-5 revision fusion and left L2/3 discectomy cont critical care cont neuro checks cont supportive care ok to start lovenox for dvt prophylaxis <Angelica Boyce - Last Filed: 10/12/18 11:18>
[2018-10-08] MEDS: Divalproex 125 MG Sprinkles Capsule PO SCH ×2 (16:07→20:34)
[2018-10-09] MEDS: Propofol 1000 mg/100 ml Inj 1,000 MG/100 ML BOTTLE IV.CONT PRN ×7 (00:53→22:21)
[2018-10-09 03:23] LABS: Calcium 8.8 mg/dL (8.5-10.1); Carbon Dioxide 22.1 meq/L (21.0-32.0); Potassium 4.3 meq/L (3.5-5.1)
[2018-10-09] MEDS: Oral Hygiene Kit OROPHARYNG SCH ×4 (04:24→23:18)
[2018-10-09] MEDS: MethylPREDNISolone Sod Succinate Inj 40 MG/ML Vial IV.PUSH SCH (06:17)
[2018-10-09] MEDS: Midazolam 50 MG/50 ML Inj 50 MG/50 ML BAG IV.CONT PRN ×2 (07:21→14:21)
--- NOTE | 2018-10-09 08:16 | P.PNCC ---
Subjective Subjective Remarks/Hospital Course: Patient is a 73-year-old male with past medical history significant for hypertension, COPD, Prostate carcinoma, history of previous lumbar laminectomy who came to the [place] emergency department as a transfer from transfer from [facility]. He was accepted by neurosurgery Dr. Peter for acute onset bilateral lower extremity weakness. Patient states that he woke up this morning around 6 AM with numbness and weakness of bilateral lower extremity. On attempt to walk he fell on his face due to weakness. Patient states that the strength got slight better since then. CT scan of the lumbar spine large area of soft attenuation attenuation in the ventral epidural space L2-L3 level suspicious for large disc extrusion with spinal canal stenosis with differential diagnosis involving hemorrhage, there is also at least moderate bilateral neural foraminal stenosis. I evaluate the patient in the ED. He complains of weakness more on the left leg which he is unable to lift. There is generalized numbness but he is able to feel my touch. Critical care was requested to admit the patient to the ICU. Discussed with Dr. Mittal ED and Dr. Peter neurosurgery. A stat MRI of the lumbar spine had been ordered. 10/03: Remains intubated sedated. Remains on Levophed at 10 mcg/min to maintain map above 70. Patient is s/p L2 to L5 posterior spinal fusion, Left L2 /3 microdiscectomy. (MRI showed large herniated disc at L2/3 and flex/ex showing instability at this level). On sedation hold patient is moving all 4 extremities. Hb 8.3 will transfuse 1 unit PRBC due to hypotension 10/04: Remains intubated sedated remains on 8 mcg/min of Levophed to maintain map above 75. Transfusing 1 unit PRBC for hemoglobin 7.4. post-op MRI with significant disc herniation at L2/3. Scheduled for surgery today with Dr. Peter 10/05: Patient underwent surgery on 10/04/2018 for removal residual disc at L2/ 3 right side based on post-op MRI. (s/p L2-5 revision fusion and left L2/3 discectomy on 10/02/18). Today patient's hypoxemia had improved, he was awake but on lightening sedation was very agitated so after a short CPAP trial patient was extubated. Shortly after extubation patient became very agitated requiring four-point restraints and physically nurses having to restrain him. 2 mg IV Ativan was given following which patient became partially responsive with obstructive airway sounds. Shortly became hypoxemic desaturated, became bradycardic in 40s and systolic blood pressure does drop to mid 40s. I was emergently called to the bedside I started bag and mask ventilation immediately. Half ampule of epinephrine was post IV. His heart rate in systolic blood pressure improved with bag and mask ventilation and epinephrine push however he remained unresponsive. Emergently intubated and placed on mechanical ventilation. Once more responsive will start on sedation with Versed. Start Levophed to maintain map above 65. Postintubation chest x-ray is pending. 10/06: Remains intubated heavily sedated for vent synchrony. Patient gets very agitated on holding sedation. We will start Precedex to facilitate vent weaning. Hemoglobin is 7.1, 1 unit of PRBC followed by IV Lasix ordered. 10/07: Agitated. TVs > 1.0 liter spontaneous. Extubated. Patient required reintubation about 5 hours later due to hypoxemia. 10/08: Intubated for the third time last evening. He is unable to tolerate extubation due to a combination of underlying lung disease and severe agitation. If the family wishes to proceed he will require tracheostomy for safe weaning from the ventilator. His baseline mental status is apparently pretty close to normal. 10/09: Tracheostomy placed yesterday. Large amounts of white thick secretions encountered. Chest x-ray continues with a pattern of pulmonary edema. We will continue aggressive twice daily diuretic therapy. Ostensibly plan is to transfer to [facility] at the beginning of next week. One family member is not on board with that yet however. Objective Vital Signs / I&O: Vital Signs 10/08/18 08:15 10/08/18 08:30 10/08/18 08:45 Temperature Pulse Rate 110 H 100 H 85 Respiratory Rate Blood Pressure Pulse Oximetry 96 96 98 10/08/18 09:00 10/08/18 09:15 10/08/18 09:30 Temperature Pulse Rate 77 76 78 Respiratory Rate Blood Pressure Pulse Oximetry 97 96 94 L 10/08/18 09:45 10/08/18 10:00 10/08/18 10:15 Temperature Pulse Rate 98 H 103 H 103 H Respiratory Rate Blood Pressure Pulse Oximetry 99 98 97 10/08/18 10:30 10/08/18 10:45 10/08/18 11:00 Temperature Pulse Rate 105 H 108 H 106 H Respiratory Rate Blood Pressure Pulse Oximetry 98 98 99 10/08/18 11:15 10/08/18 11:30 10/08/18 11:34 Temperature Pulse Rate 76 67 66 Respiratory Rate 16 Blood Pressure Pulse Oximetry 97 100 10/08/18 11:45 10/08/18 12:00 10/08/18 12:15 Temperature 98.4 F Pulse Rate 76 126 H 89 Respiratory Rate 16 Blood Pressure Pulse Oximetry 100 97 100 10/08/18 12:30 10/08/18 12:35 10/08/18 12:39 Temperature Pulse Rate 84 Respiratory Rate 16 Blood Pressure Pulse Oximetry 100 99 100 10/08/18 12:45 10/08/18 13:00 10/08/18 13:15 Temperature Pulse Rate 78 70 65 Respiratory Rate Blood Pressure Pulse Oximetry 100 100 100 10/08/18 13:30 10/08/18 13:45 10/08/18 14:00 Temperature Pulse Rate 62 61 58 L Respiratory Rate Blood Pressure Pulse Oximetry 100 100 100 10/08/18 14:15 10/08/18 14:30 10/08/18 14:45 Temperature Pulse Rate 58 L 56 L 56 L Respiratory Rate Blood Pressure Pulse Oximetry 100 100 100 10/08/18 15:00 10/08/18 15:15 10/08/18 15:23 Temperature Pulse Rate 54 L 55 L 55 L Respiratory Rate 18 Blood Pressure Pulse Oximetry 100 97 10/08/18 15:30 10/08/18 15:45 10/08/18 16:00 Temperature Pulse Rate 54 L 55 L 55 L Respiratory Rate 16 Blood Pressure Pulse Oximetry 97 98 98 10/08/18 16:15 10/08/18 16:30 10/08/18 16:45 Temperature Pulse Rate 54 L 53 L 53 L Respiratory Rate Blood Pressure Pulse Oximetry 98 98 99 10/08/18 17:00 10/08/18 17:15 10/08/18 17:30 Temperature 97.7 F Pulse Rate 53 L 53 L 53 L Respiratory Rate Blood Pressure Pulse Oximetry 99 99 99 10/08/18 17:45 10/08/18 18:00 10/08/18 18:15 Temperature Pulse Rate 53 L 53 L 55 L Respiratory Rate Blood Pressure Pulse Oximetry 99 99 85 L 10/08/18 18:30 10/08/18 20:00 10/08/18 20:55 Temperature 97.6 F Pulse Rate 55 L 54 L Respiratory Rate 18 18 Blood Pressure Pulse Oximetry 93 L 94 L 95 10/08/18 20:57 10/08/18 21:00 10/08/18 22:00 Temperature Pulse Rate 56 L 57 L 62 Respiratory Rate 18 18 18 Blood Pressure Pulse Oximetry 98 97 10/08/18 23:00 10/08/18 23:34 10/09/18 00:00 Temperature 98.2 F Pulse Rate 80 79 Respiratory Rate 20 20 20 Blood Pressure 168/73 H Pulse Oximetry 100 100 99 10/09/18 00:22 10/09/18 01:00 10/09/18 02:00 Temperature Pulse Rate 81 96 H 76 Respiratory Rate 20 19 18 Blood Pressure Pulse Oximetry 100 99 10/09/18 03:00 10/09/18 03:54 10/09/18 03:56 Temperature Pulse Rate 68 63 Respiratory Rate 18 18 18 Blood Pressure Pulse Oximetry 99 95 10/09/18 04:00 10/09/18 05:00 10/09/18 06:00 Temperature Pulse Rate 74 77 70 Respiratory Rate 18 18 18 Blood Pressure Pulse Oximetry 100 97 98 Intake & Output 10/08/18 10/09/18 10/09/18 18:59 06:59 18:59 Intake Total 710 / 710 650 / 650 50 / 50 Output Total 650 / 650 800 / 800 Balance 60 / 60 -150 / -150 50 / 50 Weight 94.9 kg Intake: IV 650 / 650 650 / 650 50 / 50 Versed Inj 50 mg In 50 ml @ 2 100 / 100 50 / 50 MG/HR 2 mls/hr IV.CONT TITRATE PRN Rx#:[id number] Diprivan 1000 mg/100 ml Inj 1, 200 / 200 300 / 300 000 mg In 100 ml @ 5 MCG/KG/MIN 2.835 mls/hr IV.CONT TITRATE PRN Rx#:[id number] Maxipime Inj 2,000 MG In NS Inj 100 / 100 100 / 100 100 ML @ 200 mls/hr IV.SIG Q8H ERIKA Rx#:[id number] fentaNYL 10 mcg/mL Premix Drip 250 / 250 250 / 250 2,500 mcg In 250 ml @ 50 MCG/HR 5 mls/hr IV.SIG TITRATE PRN Rx #:[id number] Tube Feeding 0 / 0 Water Bolus Amount 60 / 60 Output: Urine Amount (Catheter) 450 / 450 800 / 800 Indwelling Urethral Catheter 450 / 450 800 / 800 Gastric Drainage 200 / 200 0 / 0 Orogastric Tube 200 / 200 Right Nare Nasogastric Tube 0 / 0 Other: # Bowel Movements 0 Result Diagrams: 10/07/18 03:26 10/09/18 02:47 Objective Remarks: GENERAL: Elderly gentleman, sedated for vent synchrony SKIN: warm/dry. HEAD: Normocephalic. Atraumatic EYES: No injection or drainage. ENT: Intubated through tracheostomy, site clean and dry NECK: Supple, trachea midline. CARDIOVASCULAR: S1-S2 normal, no murmurs. Neck veins are full and moderately distended. RESPIRATORY: Barrel-shaped chest. Air entry equal bilaterally, few scattered rhonchi, no wheezes GASTROINTESTINAL: Abdomen soft, non-tender, nondistended. Bowel sounds are active. MUSCULOSKELETAL: No cyanosis, or edema. Warm, well-perfused. NEURO: Intubated lightly sedated for vent synchrony. Tolerate spontaneous breathing trials. Moves all 4 limbs with purpose. 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 Code(s): M47.16 - Other spondylosis with myelopathy, lumbar region Status: Acute (2) Weakness of lower extremity Code(s): R29.898 - Other symptoms and signs involving the musculoskeletal system Status: Acute (3) COPD (chronic obstructive pulmonary disease) Code(s): J44.9 - Chronic obstructive pulmonary disease, unspecified Status: Chronic (4) History of prostate cancer Code(s): Z85.46 - Personal history of malignant neoplasm of prostate Status: Chronic (5) History of hypertension Code(s): Z86.79 - Personal history of other diseases of the circulatory system Status: Chronic - Assessment and Plan Plan: ASSESSMENT: Acute hypoxemic hypercarbic/hypoxemic respiratory failure Respiratory arrest after receiving Ativan on 10/05/2018 Hypotension now resolved Lumbar cord compression likely secondary to large herniated disc, with lower extremity weakness Right L2/L3 discectomy 10/04/2018 for removal residual disc at right L2/3 s/p L2-5 revision fusion and left L2/3 discectomy on 10/02/18. Hypotension on pressors History of previous lumbar posterior fusion and microdiscectomy by Dr. Hansen Acute on chronic kidney disease Anemia requiring transfusion History of prostate cancer COPD History of hypertension PLAN: NEURO: -MRI showing large herniated disc at L2/3 and flex/ex showing instability at this level. -s/p L2-5 revision fusion and left L2/3 discectomy on 10/02/18. -post-op MRI with significant disc herniation at right L2/3 despite resection, Right L2/L3 discectomy 10/04/2018 -Spinal precautions -Currently sedated with Versed and fentanyl. -Start Precedex to facilitate vent weaning, add Seroquel 50 twice daily -Neurosurgery Dr. Peter. Dr. Hansen following now -Geodon on hold, to take p.o. atypical antipsychotic Seroquel RESP: -Extubated 10/05/18 however became unresponsive and hypoxic after receiving Ativan for agitation -Emergently reintubated and placed on mechanical ventilation -Currently on PRVC/AC -Initiate spontaneous weaning trial after starting Precedex -DuoNeb every 6 hours scheduled and as needed -Scheduled Solu-Medrol for COPD -Aggressive pulmonary toilet -f/u sputum culture, continue empiric cefepime -Extubate again 10/07 -Required reintubation 5 hours after extubation due to secretions and hypoxemia. Situation made worse by underlying agitation. -Tracheostomy performed 10/08 CV: -Maintain Levophed to keep map above 65 -Cardiac decompensation most likely secondary to pulmonary problems, he hypoxemia - GI: -N.p.o., IV famotidine. Start tube feeds -Bowel regimen : -Monitor renal function closely. -IV hydration will be discontinued and IV Lasix as above -Discontinue [place] for hourly intake output, monitor creatinine closely ID: -Sputum culture, continue cefepime 2 g IV every 12 hours HEME: -Transfused 1 unit PRBC -Monitor CBC, coags ENDO: -Electrolyte replacement per protocol PROPH: -Bilateral lower extremity SCDs. No chemical DVT prophylaxis due to spinal surgery/continue famotidine LINES: -Utilize peripheral IVs, central line as needed -PT evaluate and treat All impression: Patient remains critically ill and ventilator dependent and we have been unable to keep him extubated for more than a few hours. His baseline mental status was quite good prior to this and so far the family has requested ongoing aggressive care. Yesterday was a major step backward for him and we will continue to try to clean up his lungs and restart ventilator weaning trials when he becomes more stable. Critical care time 35 minutes aside from procedures.
[2018-10-09] MEDS: Divalproex 125 MG Sprinkles Capsule PO SCH ×2 (08:48→20:41)
[2018-10-09] MEDS: Senna/Docusate Sodium 8.6/50 MG Tablet PO SCH ×2 (08:48→20:41)
[2018-10-09] MEDS: QUEtiapine 25 MG Tablet PO SCH ×2 (08:48→20:41)
[2018-10-09] MEDS: Sodium Chloride 0.9% 2 ML Flush BID IV.FLUSH SCH ×2 (08:49→20:42)
[2018-10-09] MEDS: Chlorhexidine 0.12% Oral Kit 15 ML UDC OROPHARYNG SCH ×2 (08:52→20:42)
[2018-10-09] MEDS: Famotidine PF Inj 20 MG/2 ML Vial IV.PUSH SCH ×2 (08:53→20:41)
[2018-10-09] MEDS: Bisacodyl 10 MG Supp RECTAL PRN (08:54)
[2018-10-09] MEDS: hydrALAZINE HCl Inj 20 MG/ML Vial IV.PUSH PRN (08:54)
--- NOTE | 2018-10-09 09:37 | P.PNNS ---
Subjective Interval history: Trached yesterday, trying CPAP today some drainage from incision in back on dressing change today Physical Exam Vital signs: Vital Signs 10/08/18 09:30 10/08/18 09:45 10/08/18 10:00 Temperature Pulse Rate 78 98 H 103 H Respiratory Rate Blood Pressure Pulse Oximetry 94 L 99 98 10/08/18 10:15 10/08/18 10:30 10/08/18 10:45 Temperature Pulse Rate 103 H 105 H 108 H Respiratory Rate Blood Pressure Pulse Oximetry 97 98 98 10/08/18 11:00 10/08/18 11:15 10/08/18 11:30 Temperature Pulse Rate 106 H 76 67 Respiratory Rate Blood Pressure Pulse Oximetry 99 97 100 10/08/18 11:34 10/08/18 11:45 10/08/18 12:00 Temperature 98.4 F Pulse Rate 66 76 126 H Respiratory Rate 16 16 Blood Pressure Pulse Oximetry 100 97 10/08/18 12:15 10/08/18 12:30 10/08/18 12:35 Temperature Pulse Rate 89 84 Respiratory Rate Blood Pressure Pulse Oximetry 100 100 99 10/08/18 12:39 10/08/18 12:45 10/08/18 13:00 Temperature Pulse Rate 78 70 Respiratory Rate 16 Blood Pressure Pulse Oximetry 100 100 100 10/08/18 13:15 10/08/18 13:30 10/08/18 13:45 Temperature Pulse Rate 65 62 61 Respiratory Rate Blood Pressure Pulse Oximetry 100 100 100 10/08/18 14:00 10/08/18 14:15 10/08/18 14:30 Temperature Pulse Rate 58 L 58 L 56 L Respiratory Rate Blood Pressure Pulse Oximetry 100 100 100 10/08/18 14:45 10/08/18 15:00 10/08/18 15:15 Temperature Pulse Rate 56 L 54 L 55 L Respiratory Rate Blood Pressure Pulse Oximetry 100 100 97 10/08/18 15:23 10/08/18 15:30 10/08/18 15:45 Temperature Pulse Rate 55 L 54 L 55 L Respiratory Rate 18 Blood Pressure Pulse Oximetry 97 98 10/08/18 16:00 10/08/18 16:15 10/08/18 16:30 Temperature Pulse Rate 55 L 54 L 53 L Respiratory Rate 16 Blood Pressure Pulse Oximetry 98 98 98 10/08/18 16:45 10/08/18 17:00 10/08/18 17:15 Temperature 97.7 F Pulse Rate 53 L 53 L 53 L Respiratory Rate Blood Pressure Pulse Oximetry 99 99 99 10/08/18 17:30 10/08/18 17:45 10/08/18 18:00 Temperature Pulse Rate 53 L 53 L 53 L Respiratory Rate Blood Pressure Pulse Oximetry 99 99 99 10/08/18 18:15 10/08/18 18:30 10/08/18 20:00 Temperature 97.6 F Pulse Rate 55 L 55 L 54 L Respiratory Rate 18 Blood Pressure Pulse Oximetry 85 L 93 L 94 L 10/08/18 20:55 10/08/18 20:57 10/08/18 21:00 Temperature Pulse Rate 56 L 57 L Respiratory Rate 18 18 18 Blood Pressure Pulse Oximetry 95 98 10/08/18 22:00 10/08/18 23:00 10/08/18 23:34 Temperature Pulse Rate 62 80 Respiratory Rate 18 20 20 Blood Pressure 168/73 H Pulse Oximetry 97 100 100 10/09/18 00:00 10/09/18 00:22 10/09/18 01:00 Temperature 98.2 F Pulse Rate 79 81 96 H Respiratory Rate 20 20 19 Blood Pressure Pulse Oximetry 99 100 10/09/18 02:00 10/09/18 03:00 10/09/18 03:54 Temperature Pulse Rate 76 68 63 Respiratory Rate 18 18 18 Blood Pressure Pulse Oximetry 99 99 10/09/18 03:56 10/09/18 04:00 10/09/18 05:00 Temperature Pulse Rate 74 77 Respiratory Rate 18 18 18 Blood Pressure Pulse Oximetry 95 100 97 10/09/18 06:00 10/09/18 08:14 10/09/18 08:50 Temperature Pulse Rate 70 Respiratory Rate 18 14 Blood Pressure Pulse Oximetry 98 98 98 Intake & Output 10/08/18 10/09/18 10/09/18 18:59 06:59 18:59 Intake Total 710 / 710 650 / 650 150 / 150 Output Total 650 / 650 800 / 800 Balance 60 / 60 -150 / -150 150 / 150 Weight 94.9 kg Intake: IV 650 / 650 650 / 650 150 / 150 Versed Inj 50 mg In 50 ml @ 2 100 / 100 50 / 50 MG/HR 2 mls/hr IV.CONT TITRATE PRN Rx#:[id number] Diprivan 1000 mg/100 ml Inj 1, 200 / 200 300 / 300 100 / 100 000 mg In 100 ml @ 5 MCG/KG/MIN 2.835 mls/hr IV.CONT TITRATE PRN Rx#:[id number] Maxipime Inj 2,000 MG In NS Inj 100 / 100 100 / 100 100 ML @ 200 mls/hr IV.SIG Q8H ERIKA Rx#:[id number] fentaNYL 10 mcg/mL Premix Drip 250 / 250 250 / 250 2,500 mcg In 250 ml @ 50 MCG/HR 5 mls/hr IV.SIG TITRATE PRN Rx #:[id number] Tube Feeding 0 / 0 Water Bolus Amount 60 / 60 Output: Urine Amount (Catheter) 450 / 450 800 / 800 Indwelling Urethral Catheter 450 / 450 800 / 800 Gastric Drainage 200 / 200 0 / 0 Orogastric Tube 200 / 200 Right Nare Nasogastric Tube 0 / 0 Other: # Bowel Movements 0 Narrative: intubated, sedated pupils 3-4 mm equal b/l moves arms not lower extremities not following commands, plantars silent bilaterally - Urinary Catheter Management Indwelling Urethral Catheter Cath placed during this visit: yes Reason for continuing: Hourly intake/output Insertion date: 10/02/18 Insertion time: 20:32 Assessment and Plan - Plan 73yoM po (10/02/18) L2-5 revision fusion and left L2/3 discectomy MRI T-and L-spine today Lumbar drain -- spoke with daughter and IR Dr. Méndez Plan lumbar drainage through early next week. Will send CSF for studies Incision looks clean on dressing change but concern for drainage Wean vent per Dr. Arrington / ICU / CPAP
[2018-10-09] MEDS: fentaNYL 10 mcg/mL Premix Drip 2,500 MCG/250 ML BAG IV.SIG PRN (09:45)
[2018-10-09] MEDS ORDERED: Gadobutrol PF 10 MMOL/10 ML Vial (for RAD) IV.SIG ONE (11:20)
--- NOTE | 2018-10-09 12:08 | MR ---
EXAM DATE: 10/09/2018 11:33 AM EST AGE/SEX: 73 years / Male INDICATIONS: Extremity weakness. Unable to move lower extremities. CLINICAL DATA: This is the patient's subsequent encounter. Patient reports that signs and symptoms h ave been present for 2 weeks and indicates a pain score of 0/10. MEDICAL/SURGICAL HISTORY: Hypertension. Gastroesophageal reflux disease. Carcinoma, prostatic . Fusion, lumbar. Discectomy, lumbar. Carotid endarterectomy. COMPARISON: . TECHNIQUE: Multiplanar, multisequence MRI of the thoracic spine was performed without and with 10 ml Gadavist (gadobutrol) contrast as a single exam dose. FINDINGS: Significant cervical spinal stenosis, not evaluated on this exam. The upper thoracic spine from T1 to T4 is unremarkable. T4-T5: Minimal interspace ridging without significant spinal stenosis.. Minimal bilateral neural fora deangelo encroachment. Mild disc desiccation at T5-T6 T6-T7 and T7-T8 and T8-T9. Minimal signal alteration in the T9 vertebral body nonspecific that could be a small hemangioma. T10-T11 and T11-T12 are unremarkable. Signal intensity cord is normal Conus appears normal. Trace pleural effusion is evident. CONCLUSION: 1. Significant cervical spinal stenosis, not evaluated on this exam. 2. There is no intrathoracic cord compression. 3. Conus is unremarkable. Electronically signed by: Rogers Rubio MD 10/09/2018 12:07 PM EST
--- NOTE | 2018-10-09 12:14 | MR ---
EXAM DATE: 10/09/2018 11:27 AM EST AGE/SEX: 73 years / Male INDICATIONS: Extremity weakness. Unable to move legs. CLINICAL DATA: This is the patient's subsequent encounter. Patient reports that signs and symptoms h ave been present for 2 weeks and indicates a pain score of 0/10. MEDICAL/SURGICAL HISTORY: Hypertension. Gastroesophageal reflux disease. Fusion, lumbar. Disc ectomy, lumbar. Carotid endarterectomy. COMPARISON: No prior exams available for comparison. TECHNIQUE: Multiplanar, multisequence MRI examination of the lumbar spine was performed without and with 10 ml Gadavist (gadobutrol) contrast as a single exam dose. FINDINGS: The most caudal-appearing lumbar vertebra is numbered as L5. Marrow is inhomogeneous in a nonspecific fashion. Previous transpedicular fixation L2-S1 for grade 2-3 spinal listhesis with recen t discectomy L2-3. T12-L1: The thecal sac has a normal diameter. No evidence of disc bulge or protrusion. The neural foramina are patent bilaterally. L1-L2: Mild bulging eccentric to the right with minimal neural foraminal encroachment. Moderate deg enerative changes in the facets. L2-L3: Moderate loss of disc space height with minimal artifact from transpedicular fixation. There is no significant impingement. The previously described large central disc protrusion has been compl etely removed with good decompression. L3-L4: Thecal sac normal appearance with mild facet disease L4-L5: Grade 2 spondylolisthesis of L4 on L5 stable with bilateral neural foraminal encroachment. L5-S1: Thecal sac has a normal appearance with mild facet disease CONCLUSION: 1. Significant improvement in the postoperative appearance of the spine with good decompression at L 2-3. There is no significant thecal sac impingement. 2. Moderate facet disease is seen in the fused levels stable interval. Electronically signed by: Rogers Rubio MD 10/09/2018 12:13 PM EST
--- NOTE | 2018-10-09 15:42 | P.RAD ---
Post Procedure Progress Note - Pre Procedure Diagnosis (1) Postoperative CSF leak - Post Procedure Diagnosis (1) Postoperative CSF leak - Procedure Information Procedure Date: 10/09/18 Supervising Radiologist: Todd Prater Jr, MD Proceduralist/Assist: Raymundo Paniagua Anesthesia: Other - Plan of Activity Patient to Unit: Critical Care Patient Condition: Fair See PACS Report for procedural detail/treatment. Spinal Procedure Lumbar Drain T5 Fluid Removal (CCs): 10 Fluid Description: Clear Puncture Time: 15:30 Findings: Lumbar fusion surgery at L2-3 with CSF leak. Lumbar drain enters thecal sac at L1-2. Tip at T5. CSF sample to lab as requested. Drain sutured in place. Management per neurosurgery. Plan: Management of drain per neurosurgery.
[2018-10-09 16:32] LABS: Total Protein,CSF 24.7 mg/dL (15.0-45.0)
[2018-10-09 17:07] LABS: RBC on Tube 4 70 /mm3
[2018-10-09 17:19] LABS: Lymphocytes, CSF 70 %; Monocytes,CSF 20 %; Neutrophils,CSF 0 %
[2018-10-10] MEDS: Propofol 1000 mg/100 ml Inj 1,000 MG/100 ML BOTTLE IV.CONT PRN ×5 (02:32→20:15)
[2018-10-10] MEDS: fentaNYL 10 mcg/mL Premix Drip 2,500 MCG/250 ML BAG IV.SIG PRN ×2 (02:33→19:38)
[2018-10-10] MEDS: Midazolam 50 MG/50 ML Inj 50 MG/50 ML BAG IV.CONT PRN (02:34)
[2018-10-10] MEDS: Oral Hygiene Kit OROPHARYNG SCH ×3 (03:11→15:55)
[2018-10-10 03:29] LABS: Baso % (Auto) 0.1 % (0.0-2.0); Eos % (Auto) 0.3 % (0.0-4.0); Hematocrit 25.9 % (39.0-51.0); Hemoglobin 8.4 gm/dL (13.0-17.0); Lymph # (Auto) 0.7 th/mm3 (1.0-4.8); Lymph % (Auto) 9.5 % (9.0-44.0); Mean Corpuscular HGB Conc 32.3 % (32.0-36.0); Mean Corpuscular Hemoglobin 28.9 pg (27.0-34.0); Mean Corpuscular Volume 89.7 fL (80.0-100.0); Mean Platelet Volume 7.9 fL (7.0-11.0); Mono # (Auto) 0.7 th/mm3 (0.0-0.9); Mono % (Auto) 9.3 % (0.0-8.0); Neut # (Auto) 5.9 th/mm3 (1.8-7.7); Neut % (Auto) 80.8 % (16.0-70.0); Platelet Count 230 th/mm3 (150-450); Red Blood Count 2.89 mil/mm3 (4.50-5.90); Red Cell Distribution Width 21.6 % (11.6-17.2); White Blood Count 7.3 th/mm3 (4.0-11.0)
[2018-10-10 03:41] LABS: Calcium 9.2 mg/dL (8.5-10.1); Carbon Dioxide 22.8 meq/L (21.0-32.0)
--- NOTE | 2018-10-10 06:44 | P.PNCC ---
Subjective Subjective Remarks/Hospital Course: Patient is a 73-year-old male with past medical history significant for hypertension, COPD, Prostate carcinoma, history of previous lumbar laminectomy who came to the [place] emergency department as a transfer from transfer from [facility]. He was accepted by neurosurgery Dr. Peter for acute onset bilateral lower extremity weakness. Patient states that he woke up this morning around 6 AM with numbness and weakness of bilateral lower extremity. On attempt to walk he fell on his face due to weakness. Patient states that the strength got slight better since then. CT scan of the lumbar spine large area of soft attenuation attenuation in the ventral epidural space L2-L3 level suspicious for large disc extrusion with spinal canal stenosis with differential diagnosis involving hemorrhage, there is also at least moderate bilateral neural foraminal stenosis. I evaluate the patient in the ED. He complains of weakness more on the left leg which he is unable to lift. There is generalized numbness but he is able to feel my touch. Critical care was requested to admit the patient to the ICU. Discussed with Dr. Mittal ED and Dr. Peter neurosurgery. A stat MRI of the lumbar spine had been ordered. 10/03: Remains intubated sedated. Remains on Levophed at 10 mcg/min to maintain map above 70. Patient is s/p L2 to L5 posterior spinal fusion, Left L2 /3 microdiscectomy. (MRI showed large herniated disc at L2/3 and flex/ex showing instability at this level). On sedation hold patient is moving all 4 extremities. Hb 8.3 will transfuse 1 unit PRBC due to hypotension 10/04: Remains intubated sedated remains on 8 mcg/min of Levophed to maintain map above 75. Transfusing 1 unit PRBC for hemoglobin 7.4. post-op MRI with significant disc herniation at L2/3. Scheduled for surgery today with Dr. Peter 10/05: Patient underwent surgery on 10/04/2018 for removal residual disc at L2/ 3 right side based on post-op MRI. (s/p L2-5 revision fusion and left L2/3 discectomy on 10/02/18). Today patient's hypoxemia had improved, he was awake but on lightening sedation was very agitated so after a short CPAP trial patient was extubated. Shortly after extubation patient became very agitated requiring four-point restraints and physically nurses having to restrain him. 2 mg IV Ativan was given following which patient became partially responsive with obstructive airway sounds. Shortly became hypoxemic desaturated, became bradycardic in 40s and systolic blood pressure does drop to mid 40s. I was emergently called to the bedside I started bag and mask ventilation immediately. Half ampule of epinephrine was post IV. His heart rate in systolic blood pressure improved with bag and mask ventilation and epinephrine push however he remained unresponsive. Emergently intubated and placed on mechanical ventilation. Once more responsive will start on sedation with Versed. Start Levophed to maintain map above 65. Postintubation chest x-ray is pending. 10/06: Remains intubated heavily sedated for vent synchrony. Patient gets very agitated on holding sedation. We will start Precedex to facilitate vent weaning. Hemoglobin is 7.1, 1 unit of PRBC followed by IV Lasix ordered. 10/07: Agitated. TVs > 1.0 liter spontaneous. Extubated. Patient required reintubation about 5 hours later due to hypoxemia. 10/08: Intubated for the third time last evening. He is unable to tolerate extubation due to a combination of underlying lung disease and severe agitation. If the family wishes to proceed he will require tracheostomy for safe weaning from the ventilator. His baseline mental status is apparently pretty close to normal. 10/09: Tracheostomy placed yesterday. Large amounts of white thick secretions encountered. Chest x-ray continues with a pattern of pulmonary edema. We will continue aggressive twice daily diuretic therapy. Ostensibly plan is to transfer to [facility] [place] at the beginning of next week. One family member is not on board with that yet however. 10/10: Lumbar drain has been placed. Continue spontaneous breathing trials through tracheostomy. Continue discussions with family about transfer to LTAC for long-term weaning. No evidence of infection. Objective Vital Signs / I&O: Vital Signs 10/09/18 07:00 10/09/18 08:00 10/09/18 08:14 Temperature 98.9 F Pulse Rate 64 62 Respiratory Rate 14 Blood Pressure 151/69 H 153/67 H Pulse Oximetry 99 97 98 10/09/18 08:50 10/09/18 09:00 10/09/18 09:03 Temperature Pulse Rate 98 H 100 H Respiratory Rate Blood Pressure 200/95 H 200/94 H Pulse Oximetry 98 99 100 10/09/18 09:39 10/09/18 10:00 10/09/18 10:22 Temperature Pulse Rate 93 H 82 Respiratory Rate Blood Pressure 161/71 H 148/67 H Pulse Oximetry 99 98 99 10/09/18 11:36 10/09/18 11:45 10/09/18 12:00 Temperature 99.1 F Pulse Rate 76 73 73 Respiratory Rate 14 Blood Pressure 126/58 L Pulse Oximetry 10/09/18 12:39 10/09/18 13:00 10/09/18 14:00 Temperature 98.5 F Pulse Rate 68 71 Respiratory Rate 14 14 Blood Pressure Pulse Oximetry 98 95 98 10/09/18 15:00 10/09/18 16:00 10/09/18 16:26 Temperature 97.1 F L Pulse Rate 75 78 Respiratory Rate 17 Blood Pressure Pulse Oximetry 100 100 100 10/09/18 17:00 10/09/18 18:00 10/09/18 19:00 Temperature 98.7 F Pulse Rate 69 64 61 Respiratory Rate 14 14 Blood Pressure Pulse Oximetry 100 99 99 10/09/18 19:25 10/09/18 20:00 10/09/18 21:00 Temperature 97.5 F L Pulse Rate 60 60 Respiratory Rate 14 14 14 Blood Pressure Pulse Oximetry 99 98 96 10/09/18 22:00 10/09/18 23:00 10/09/18 23:22 Temperature Pulse Rate 54 L 50 L Respiratory Rate 14 14 14 Blood Pressure Pulse Oximetry 97 97 98 10/10/18 00:00 10/10/18 01:00 10/10/18 02:00 Temperature 97.6 F Pulse Rate 50 L 49 L 51 L Respiratory Rate 14 14 14 Blood Pressure 126/60 Pulse Oximetry 98 98 96 10/10/18 03:00 10/10/18 03:46 Temperature Pulse Rate 50 L Respiratory Rate 14 14 Blood Pressure Pulse Oximetry 98 98 Intake & Output 10/09/18 10/09/18 10/10/18 06:59 18:59 06:59 Intake Total 650 / 650 850 / 850 600 / 600 Output Total 800 / 800 2400 / 2400 Balance -150 / -150 -1550 / -1550 600 / 600 Weight 94.9 kg Intake: IV 650 / 650 850 / 850 600 / 600 Versed Inj 50 mg In 50 ml @ 2 100 / 100 50 / 50 MG/HR 2 mls/hr IV.CONT TITRATE PRN Rx#:[id number] Diprivan 1000 mg/100 ml Inj 1, 300 / 300 400 / 400 200 / 200 000 mg In 100 ml @ 5 MCG/KG/MIN 2.835 mls/hr IV.CONT TITRATE PRN Rx#:[id number] Maxipime Inj 2,000 MG In NS Inj 100 / 100 100 / 100 100 / 100 100 ML @ 200 mls/hr IV.SIG Q12H ERIKA Rx#:[id number] fentaNYL 10 mcg/mL Premix Drip 250 / 250 250 / 250 250 / 250 2,500 mcg In 250 ml @ 50 MCG/HR 5 mls/hr IV.SIG TITRATE PRN Rx #:[id number] Tube Feeding 0 / 0 Output: Urine Amount (Catheter) 800 / 800 2400 / 2400 Indwelling Urethral Catheter 800 / 800 2400 / 2400 Gastric Drainage 0 / 0 Right Nare Nasogastric Tube 0 / 0 Other: Date of Last Bowel Movement 10/10/18 # Bowel Movements 0 Result Diagrams: 10/10/18 03:05 10/10/18 03:05 Objective Remarks: GENERAL: Elderly gentleman, lightly sedated for vent synchrony SKIN: warm/dry. HEAD: Normocephalic. Atraumatic EYES: No injection or drainage. ENT: Intubated through tracheostomy, site clean and dry NECK: Supple, trachea midline. CARDIOVASCULAR: S1-S2 normal, no murmurs. Neck veins are full, not tensely distended RESPIRATORY: Barrel-shaped chest. Air entry equal bilaterally, few scattered rhonchi, no wheezes GASTROINTESTINAL: Abdomen soft, non-tender, nondistended. Bowel sounds are active. No guarding. MUSCULOSKELETAL: No cyanosis, or edema. Warm, well-perfused. NEURO: Intubated lightly sedated for vent synchrony. Tolerate spontaneous breathing trials. Moves all 4 limbs to stimulation. 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 Code(s): M47.16 - Other spondylosis with myelopathy, lumbar region Status: Acute (2) Weakness of lower extremity Code(s): R29.898 - Other symptoms and signs involving the musculoskeletal system Status: Acute (3) COPD (chronic obstructive pulmonary disease) Code(s): J44.9 - Chronic obstructive pulmonary disease, unspecified Status: Chronic (4) History of prostate cancer Code(s): Z85.46 - Personal history of malignant neoplasm of prostate Status: Chronic (5) History of hypertension Code(s): Z86.79 - Personal history of other diseases of the circulatory system Status: Chronic - Assessment and Plan Plan: ASSESSMENT: Acute hypoxemic hypercarbic/hypoxemic respiratory failure Respiratory arrest after receiving Ativan on 10/05/2018 Hypotension now resolved Lumbar cord compression likely secondary to large herniated disc, with lower extremity weakness Right L2/L3 discectomy 10/04/2018 for removal residual disc at right L2/3 s/p L2-5 revision fusion and left L2/3 discectomy on 10/02/18. Hypotension on pressors History of previous lumbar posterior fusion and microdiscectomy by Dr. Hansen Acute on chronic kidney disease Anemia requiring transfusion History of prostate cancer COPD History of hypertension PLAN: NEURO: -MRI showing large herniated disc at L2/3 and flex/ex showing instability at this level. -s/p L2-5 revision fusion and left L2/3 discectomy on 10/02/18. -post-op MRI with significant disc herniation at right L2/3 despite resection, Right L2/L3 discectomy 10/04/2018 -Spinal precautions -Currently sedated with Versed and fentanyl. -Start Precedex to facilitate vent weaning, add Seroquel 50 twice daily -Neurosurgery Dr. Peter. Dr. Hansen following now -Geodon on hold, to take p.o. atypical antipsychotic Seroquel RESP: -Extubated 10/05/18 however became unresponsive and hypoxic after receiving Ativan for agitation -Emergently reintubated and placed on mechanical ventilation -Currently on PRVC/AC -Initiate spontaneous weaning trial after starting Precedex -DuoNeb every 6 hours scheduled and as needed -Scheduled Solu-Medrol for COPD -Aggressive pulmonary toilet -f/u sputum culture, continue empiric cefepime -Extubate again 10/07 -Required reintubation 5 hours after extubation due to secretions and hypoxemia. Situation made worse by underlying agitation. -Tracheostomy performed 10/08 -Continue spontaneous breathing trials. CV: -Maintain Levophed as needed to keep map above 65 -Cardiac decompensation most likely secondary to pulmonary problems, hypoxemia - GI: -N.p.o., IV famotidine. Continue tube feeds -Bowel regimen : -Monitor renal function closely. -IV hydration will be discontinued and IV Lasix as above -Discontinue [place] for hourly intake output, monitor creatinine closely ID: -Sputum culture, continue cefepime 2 g IV every 12 hours HEME: -Transfused 1 unit PRBC -Monitor CBC, coags ENDO: -Electrolyte replacement per protocol PROPH: -Bilateral lower extremity SCDs. No chemical DVT prophylaxis due to spinal surgery/continue famotidine LINES: -Utilize peripheral IVs, central line as needed -PT evaluate and treat All impression: Patient remains critically ill and ventilator dependent and we have been unable to keep him extubated for more than a few hours. His baseline mental status was quite good prior to this and so far the family has requested ongoing aggressive care. We will continue to try to clean up his lungs and restart ventilator weaning trials when he becomes more stable. Lumbar drain in place, hold transfer to LTAC for now. Critical care time 35 minutes aside from procedures.
[2018-10-10] MEDS: Divalproex 125 MG Sprinkles Capsule PO SCH ×2 (08:09→20:01)
[2018-10-10] MEDS: QUEtiapine 25 MG Tablet PO SCH ×2 (08:09→20:01)
[2018-10-10] MEDS: Chlorhexidine 0.12% Oral Kit 15 ML UDC OROPHARYNG SCH ×2 (08:09→19:40)
[2018-10-10] MEDS: Famotidine PF Inj 20 MG/2 ML Vial IV.PUSH SCH ×2 (08:10→20:03)
[2018-10-10] MEDS: Senna/Docusate Sodium 8.6/50 MG Tablet PO SCH ×2 (08:11→20:03)
[2018-10-10] MEDS: Sodium Chloride 0.9% 2 ML Flush BID IV.FLUSH SCH ×2 (08:11→20:04)
--- NOTE | 2018-10-10 11:51 | P.PNNS ---
Subjective Interval history: Appreciate Lumbar drain placement yesterday Drain about 160 last 8 hours with level ~ EAC. Keep this level (target 80-120/ 8 hour period). CPAP x 2 hrs tolerated Physical Exam Vital signs: Vital Signs 10/09/18 11:45 10/09/18 12:00 10/09/18 12:39 Temperature 99.1 F Pulse Rate 73 73 Respiratory Rate 14 14 Blood Pressure 126/58 L Pulse Oximetry 98 10/09/18 13:00 10/09/18 14:00 10/09/18 15:00 Temperature 98.5 F Pulse Rate 68 71 75 Respiratory Rate 14 Blood Pressure Pulse Oximetry 95 98 100 10/09/18 16:00 10/09/18 16:26 10/09/18 17:00 Temperature 97.1 F L Pulse Rate 78 69 Respiratory Rate 17 14 Blood Pressure Pulse Oximetry 100 100 100 10/09/18 18:00 10/09/18 19:00 10/09/18 19:25 Temperature 98.7 F Pulse Rate 64 61 Respiratory Rate 14 14 Blood Pressure Pulse Oximetry 99 99 99 10/09/18 20:00 10/09/18 21:00 10/09/18 22:00 Temperature 97.5 F L Pulse Rate 60 60 54 L Respiratory Rate 14 14 14 Blood Pressure Pulse Oximetry 98 96 97 10/09/18 23:00 10/09/18 23:22 10/10/18 00:00 Temperature 97.6 F Pulse Rate 50 L 50 L Respiratory Rate 14 14 14 Blood Pressure Pulse Oximetry 97 98 98 10/10/18 01:00 10/10/18 02:00 10/10/18 03:00 Temperature Pulse Rate 49 L 51 L 50 L Respiratory Rate 14 14 14 Blood Pressure 126/60 Pulse Oximetry 98 96 98 10/10/18 03:46 10/10/18 04:00 10/10/18 05:00 Temperature 97.6 F Pulse Rate 48 L 52 L Respiratory Rate 14 14 14 Blood Pressure 106/54 L 129/61 Pulse Oximetry 98 99 99 10/10/18 06:00 10/10/18 07:15 10/10/18 07:31 Temperature Pulse Rate 71 57 L Respiratory Rate 16 14 Blood Pressure 178/83 H 145/70 H Pulse Oximetry 99 100 100 10/10/18 08:00 10/10/18 08:31 10/10/18 09:00 Temperature 98.3 F Pulse Rate 58 L 56 L 58 L Respiratory Rate 14 14 14 Blood Pressure 151/72 H Pulse Oximetry 100 100 99 10/10/18 09:31 10/10/18 10:00 10/10/18 10:31 Temperature Pulse Rate 54 L 57 L 57 L Respiratory Rate 14 14 14 Blood Pressure 111/55 L 134/63 Pulse Oximetry 98 100 99 10/10/18 11:00 Temperature Pulse Rate 56 L Respiratory Rate 14 Blood Pressure Pulse Oximetry 100 Intake & Output 10/09/18 10/10/18 10/10/18 18:59 06:59 18:59 Intake Total 850 / 850 600 / 600 100 / 100 Output Total 2400 / 2400 1594 / 1594 Balance -1550 / -1550 -994 / -994 100 / 100 Weight 94 kg Intake: IV 850 / 850 600 / 600 100 / 100 Versed Inj 50 mg In 50 ml @ 2 100 / 100 50 / 50 MG/HR 2 mls/hr IV.CONT TITRATE PRN Rx#:[id number] Diprivan 1000 mg/100 ml Inj 1, 400 / 400 200 / 200 100 / 100 000 mg In 100 ml @ 5 MCG/KG/MIN 2.835 mls/hr IV.CONT TITRATE PRN Rx#:[id number] Maxipime Inj 2,000 MG In NS Inj 100 / 100 100 / 100 100 ML @ 200 mls/hr IV.SIG Q12H ERIKA Rx#:[id number] fentaNYL 10 mcg/mL Premix Drip 250 / 250 250 / 250 2,500 mcg In 250 ml @ 50 MCG/HR 5 mls/hr IV.SIG TITRATE PRN Rx #:[id number] Output: Urine Amount (Catheter) 2400 / 2400 1325 / 1325 Indwelling Urethral Catheter 2400 / 2400 1325 / 1325 Gastric Drainage 100 / 100 Right Nare Nasogastric Tube 100 / 100 Wound Drainage 169 / 169 Posterior Lumbar 169 / 169 Other: Date of Last Bowel Movement 10/10/18 10/10/18 Narrative: intubated, sedated pupils 3-4 mm equal b/l moves arms not lower extremities not following commands, plantars silent bilaterally dressing much accounting administrative assistant today, changed - Urinary Catheter Management Indwelling Urethral Catheter Cath placed during this visit: yes Reason for continuing: Hourly intake/output Insertion date: 10/02/18 Insertion time: 20:32 Assessment and Plan - Plan 73yoM po (10/02/18) L2-5 revision fusion and left L2/3 discectomy 10/10 MRI T-and L-spine from 10/09 look good with good decompression Lumbar drain placed 10/[address] Méndez-- much appreciated Drain working well and meeting targets 80-120/ 8 hour period CSF clean Will plan lumbar drainage through early next week Dressing much accounting administrative assistant this morning Wean vent per Dr. Arrington / ICU / CPAP
[2018-10-10] MEDS: Midazolam 100 MG/100 ML Inj 100 MG/100 ML BAG IV.CONT PRN (12:22)
[2018-10-11] MEDS: Oral Hygiene Kit OROPHARYNG SCH ×5 (00:07→23:32)
[2018-10-11] MEDS: Propofol 1000 mg/100 ml Inj 1,000 MG/100 ML BOTTLE IV.CONT PRN ×4 (04:16→20:15)
[2018-10-11 04:43] LABS: Baso % (Auto) 0.1 % (0.0-2.0); Eos # (Auto) 0.1 th/mm3 (0.0-0.4); Eos % (Auto) 0.6 % (0.0-4.0); Hematocrit 26.9 % (39.0-51.0); Lymph # (Auto) 0.7 th/mm3 (1.0-4.8); Mean Corpuscular HGB Conc 33.4 % (32.0-36.0); Mean Corpuscular Hemoglobin 29.3 pg (27.0-34.0); Mean Corpuscular Volume 87.7 fL (80.0-100.0); Mean Platelet Volume 7.6 fL (7.0-11.0); Mono # (Auto) 0.8 th/mm3 (0.0-0.9); Mono % (Auto) 8.6 % (0.0-8.0); Neut # (Auto) 8.2 th/mm3 (1.8-7.7); Neut % (Auto) 83.7 % (16.0-70.0); Platelet Count 236 th/mm3 (150-450); Red Blood Count 3.07 mil/mm3 (4.50-5.90); Red Cell Distribution Width 21.2 % (11.6-17.2); White Blood Count 9.8 th/mm3 (4.0-11.0)
[2018-10-11 05:15] LABS: Calcium 8.9 mg/dL (8.5-10.1); Potassium 3.9 meq/L (3.5-5.1)
[2018-10-11] MEDS: Sodium Chloride 0.9% 2 ML Flush BID IV.FLUSH SCH ×2 (08:49→20:16)
[2018-10-11] MEDS: Senna/Docusate Sodium 8.6/50 MG Tablet PO SCH ×2 (08:49→20:16)
[2018-10-11] MEDS: QUEtiapine 25 MG Tablet PO SCH ×2 (08:49→20:16)
[2018-10-11] MEDS: Famotidine PF Inj 20 MG/2 ML Vial IV.PUSH SCH ×2 (08:49→20:16)
[2018-10-11] MEDS: Divalproex 125 MG Sprinkles Capsule PO SCH ×2 (08:49→20:16)
[2018-10-11] MEDS: Chlorhexidine 0.12% Oral Kit 15 ML UDC OROPHARYNG SCH ×2 (08:50→19:51)
--- NOTE | 2018-10-11 10:19 | P.PNNS ---
Subjective Interval history: Tolerated some CPAP last night Dressing wet this morning, lumbar drain output 185 / 12 hours good (goal ~180 / 12 hrs or 80-120 per 8 hr shift) Using silver dressings Physical Exam Vital signs: Vital Signs 10/10/18 10:31 10/10/18 11:00 10/10/18 11:31 Temperature Pulse Rate 57 L 56 L 56 L Respiratory Rate 14 14 14 Blood Pressure 134/63 137/67 Pulse Oximetry 99 100 100 10/10/18 12:00 10/10/18 12:31 10/10/18 12:40 Temperature 98 F Pulse Rate 60 62 Respiratory Rate 14 14 17 Blood Pressure 138/65 Pulse Oximetry 99 99 99 10/10/18 13:00 10/10/18 13:31 10/10/18 14:00 Temperature Pulse Rate 73 71 69 Respiratory Rate 14 14 Blood Pressure 156/70 H Pulse Oximetry 100 100 98 10/10/18 14:31 18 15:00 10/10/18 15:31 Temperature Pulse Rate 69 71 75 Respiratory Rate Blood Pressure 141/67 H 152/72 H Pulse Oximetry 97 98 99 10/10/18 16:00 10/10/18 16:31 10/10/18 17:00 Temperature 99.6 F Pulse Rate 79 84 87 Respiratory Rate 14 14 Blood Pressure 159/72 H Pulse Oximetry 99 99 97 10/10/18 17:31 18 18:00 10/10/18 19:00 Temperature Pulse Rate 81 75 77 Respiratory Rate 14 14 16 Blood Pressure 147/65 H Pulse Oximetry 97 95 99 10/10/18 19:15 10/10/18 19:30 10/10/18 19:45 Temperature Pulse Rate 78 97 H 111 H Respiratory Rate 16 16 14 Blood Pressure Pulse Oximetry 97 98 99 10/10/18 20:00 10/10/18 20:15 10/10/18 20:30 Temperature 99.3 F Pulse Rate 118 H 106 H 99 H Respiratory Rate 15 16 15 Blood Pressure Pulse Oximetry 100 99 98 10/10/18 20:45 18 21:00 10/10/18 21:20 Temperature Pulse Rate 101 H 100 H Respiratory Rate 18 17 15 Blood Pressure Pulse Oximetry 98 98 99 10/10/18 22:00 10/10/18 23:00 10/11/18 00:00 Temperature 100.2 F H Pulse Rate 90 98 H 101 H Respiratory Rate 12 12 10 L Blood Pressure Pulse Oximetry 98 99 99 10/11/18 00:59 10/11/18 01:00 10/11/18 02:00 Temperature Pulse Rate 92 H 102 H Respiratory Rate 12 10 L 16 Blood Pressure Pulse Oximetry 99 99 99 10/11/18 03:00 10/11/18 04:00 10/11/18 05:00 Temperature 98.2 F Pulse Rate 73 73 Respiratory Rate 15 14 14 Blood Pressure Pulse Oximetry 99 99 100 10/11/18 06:00 10/11/18 07:00 10/11/18 07:11 Temperature Pulse Rate 64 68 Respiratory Rate 15 14 14 Blood Pressure Pulse Oximetry 100 100 100 Intake & Output 10/10/18 10/11/18 10/11/18 18:59 06:59 18:59 Intake Total 622 / 622 881 / 881 100 / 100 Output Total 1901 / 1901 1385 / 1385 Balance -1279 / -1279 -504 / -504 100 / 100 Weight 90 kg Intake: IV 450 / 450 550 / 550 100 / 100 Versed Inj 50 mg In 50 ml @ 2 50 / 50 MG/HR 2 mls/hr IV.CONT TITRATE PRN Rx#:[id number] Diprivan 1000 mg/100 ml Inj 1, 300 / 300 200 / 200 100 / 100 000 mg In 100 ml @ 5 MCG/KG/MIN 2.835 mls/hr IV.CONT TITRATE PRN Rx#:[id number] Maxipime Inj 2,000 MG In NS Inj 100 / 100 100 / 100 100 ML @ 200 mls/hr IV.SIG Q12H ERIKA Rx#:[id number] fentaNYL 10 mcg/mL Premix Drip 250 / 250 2,500 mcg In 250 ml @ 50 MCG/HR 5 mls/hr IV.SIG TITRATE PRN Rx #:[id number] Tube Feeding 172 / 172 331 / 331 Output: Stool 0 / 0 Urine Amount (Catheter) 1750 / 1750 1200 / 1200 Indwelling Urethral Catheter 1750 / 1750 1200 / 1200 Gastric Drainage 0 / 0 Right Nare Nasogastric Tube 0 / 0 Wound Drainage 151 / 151 185 / 185 Posterior Lumbar 151 / 151 185 / 185 Other: Date of Last Bowel Movement 10/10/18 10/10/18 # Bowel Movements 0 Narrative: intubated, sedated pupils 3-4 mm equal b/l moves arms not lower extremities not following commands, plantars silent bilaterally dressing as above, changed this morning, lumbar drain working. - Urinary Catheter Management Indwelling Urethral Catheter Cath placed during this visit: yes Reason for continuing: Hourly intake/output Insertion date: 10/02/18 Insertion time: 20:32 Assessment and Plan - Plan 73yoM po (10/02/18) L2-5 revision fusion and left L2/3 discectomy 10/10 MRI T-and L-spine from 10/09 look good with good decompression Lumbar drain placed 10/[address] Méndez-- much appreciated Drain working well and meeting targets 80-120/ 8 hour period CSF clean Will plan lumbar drainage through early next week Dressing much it engineer this morning 10/11 Dressing still getting wet, particularly on turning for prolonged time- changed to silver dressing this morning. Continue Lumbar drainage goals as above 180/12 hrs or (80-120)/8hrs. May need operative repair of CSF leak if this persists, possibly Sunday 10/[address] Arrington / ICU / CPAP
--- NOTE | 2018-10-11 10:25 | P.DIET ---
Nutritional Evaluation Type of nutrition evaluation: initial Nutrition consult regarding: Tube Feeding Screening comments: TF review Objective - Diagnosis spinal hematoma - Objective Body Mass Index: 32.0 % IBW: 139 (IBW = 142lb) Body Weight Used for Calculations: IBW Energy Needs - Lower Range (kCal/kg): 22 Energy Needs - Upper Range (kCal/kg): 25 Lower Limit kCal/kg (kCals): 1,420 Upper Limit kCal/kg (kCals): 1,613 Lower Limit Protein Factor (Grams per Kg): 1.2 Upper Limit Protein Factor (Grams per Kg): 1.5 Lower Protein Needs (Protein): 77 Upper Protein Needs (Protein): 97 Dietitian Reviewed in Medical Record: Current diet, Curent medications, Intake & Output, Labs, Medical history, Tube feeding Diet Order: TF Objective Comments: PMH: back pain, GERD, HTN, neuropathy, osteoarthritis, prostate carcinoma Labs: BUN 69, Cr 1.61, GFR 42 Assessment Assessment: Pt currently receiving Jevity 1.5 @ 30mL/hr. RD to recommend Vital 1.5 @ 45mL/ hr to provide 1620 kcal, 73g of protein, and 825mL of free water to best meet pts nutritional needs. Additional kcal (1.1kcal/mL) will be provided by propofol when running. Monitor TF tolerance. Labs reviewed, dietitian following. Recommendations: 1. RD to recommend Vital 1.5 @ 45mL/hr to best meet pts nutritional needs 2. Additional kcal (1.1kcal/mL) will be provided by propofol when running 3. Monitor TF tolerance 4. Dietitian following Dietitian to Monitor: Lab values, Intake & Output, Tube feeding tolerance, Medical course
[2018-10-11] MEDS: Midazolam 100 MG/100 ML Inj 100 MG/100 ML BAG IV.CONT PRN (13:00)
[2018-10-11] MEDS: fentaNYL 10 mcg/mL Premix Drip 2,500 MCG/250 ML BAG IV.SIG PRN (13:01)
--- NOTE | 2018-10-11 17:32 | P.PNCC ---
Subjective Subjective Remarks/Hospital Course: Patient is a 73-year-old male with past medical history significant for hypertension, COPD, Prostate carcinoma, history of previous lumbar laminectomy who came to the [place] emergency department as a transfer from transfer from [facility]. He was accepted by neurosurgery Dr. Peter for acute onset bilateral lower extremity weakness. Patient states that he woke up this morning around 6 AM with numbness and weakness of bilateral lower extremity. On attempt to walk he fell on his face due to weakness. Patient states that the strength got slight better since then. CT scan of the lumbar spine large area of soft attenuation attenuation in the ventral epidural space L2-L3 level suspicious for large disc extrusion with spinal canal stenosis with differential diagnosis involving hemorrhage, there is also at least moderate bilateral neural foraminal stenosis. I evaluate the patient in the ED. He complains of weakness more on the left leg which he is unable to lift. There is generalized numbness but he is able to feel my touch. Critical care was requested to admit the patient to the ICU. Discussed with Dr. Mittal ED and Dr. Peter neurosurgery. A stat MRI of the lumbar spine had been ordered. 10/03: Remains intubated sedated. Remains on Levophed at 10 mcg/min to maintain map above 70. Patient is s/p L2 to L5 posterior spinal fusion, Left L2 /3 microdiscectomy. (MRI showed large herniated disc at L2/3 and flex/ex showing instability at this level). On sedation hold patient is moving all 4 extremities. Hb 8.3 will transfuse 1 unit PRBC due to hypotension 10/04: Remains intubated sedated remains on 8 mcg/min of Levophed to maintain map above 75. Transfusing 1 unit PRBC for hemoglobin 7.4. post-op MRI with significant disc herniation at L2/3. Scheduled for surgery today with Dr. Peter 10/05: Patient underwent surgery on 10/04/2018 for removal residual disc at L2/ 3 right side based on post-op MRI. (s/p L2-5 revision fusion and left L2/3 discectomy on 10/02/18). Today patient's hypoxemia had improved, he was awake but on lightening sedation was very agitated so after a short CPAP trial patient was extubated. Shortly after extubation patient became very agitated requiring four-point restraints and physically nurses having to restrain him. 2 mg IV Ativan was given following which patient became partially responsive with obstructive airway sounds. Shortly became hypoxemic desaturated, became bradycardic in 40s and systolic blood pressure does drop to mid 40s. I was emergently called to the bedside I started bag and mask ventilation immediately. Half ampule of epinephrine was post IV. His heart rate in systolic blood pressure improved with bag and mask ventilation and epinephrine push however he remained unresponsive. Emergently intubated and placed on mechanical ventilation. Once more responsive will start on sedation with Versed. Start Levophed to maintain map above 65. Postintubation chest x-ray is pending. 10/06: Remains intubated heavily sedated for vent synchrony. Patient gets very agitated on holding sedation. We will start Precedex to facilitate vent weaning. Hemoglobin is 7.1, 1 unit of PRBC followed by IV Lasix ordered. 10/07: Agitated. TVs > 1.0 liter spontaneous. Extubated. Patient required reintubation about 5 hours later due to hypoxemia. 10/08: Intubated for the third time last evening. He is unable to tolerate extubation due to a combination of underlying lung disease and severe agitation. If the family wishes to proceed he will require tracheostomy for safe weaning from the ventilator. His baseline mental status is apparently pretty close to normal. 10/09: Tracheostomy placed yesterday. Large amounts of white thick secretions encountered. Chest x-ray continues with a pattern of pulmonary edema. We will continue aggressive twice daily diuretic therapy. Ostensibly plan is to transfer to [facility] at the beginning of next week. One family member is not on board with that yet however. 10/10: Lumbar drain has been placed. Continue spontaneous breathing trials through tracheostomy. Continue discussions with family about transfer to LTAC for long-term weaning. No evidence of infection. 10/11: Effective diuresis but now developing a mild prerenal azotemia. Will hold off for a while and gently hydrate. Now the tracheostomy is performed there is not quite urgency to desiccate his lungs. Hopefully we can work toward a cyst transferred to [facility] after lumbar drain discontinued. Objective Vital Signs / I&O: Vital Signs 10/10/18 17:31 10/10/18 18:00 10/10/18 19:00 Temperature Pulse Rate 81 75 77 Respiratory Rate 14 14 16 Blood Pressure 147/65 H Pulse Oximetry 97 95 99 10/10/18 19:15 10/10/18 19:30 10/10/18 19:45 Temperature Pulse Rate 78 97 H 111 H Respiratory Rate 16 16 14 Blood Pressure Pulse Oximetry 97 98 99 10/10/18 20:00 10/10/18 20:15 10/10/18 20:30 Temperature 99.3 F Pulse Rate 118 H 106 H 99 H Respiratory Rate 15 16 15 Blood Pressure Pulse Oximetry 100 99 98 10/10/18 20:45 10/10/18 21:00 10/10/18 21:20 Temperature Pulse Rate 101 H 100 H Respiratory Rate 18 17 15 Blood Pressure Pulse Oximetry 98 98 99 10/10/18 22:00 10/10/18 23:00 10/11/18 00:00 Temperature 100.2 F H Pulse Rate 90 98 H 101 H Respiratory Rate 12 12 10 L Blood Pressure Pulse Oximetry 98 99 99 10/11/18 00:59 10/11/18 01:00 10/11/18 02:00 Temperature Pulse Rate 92 H 102 H Respiratory Rate 12 10 L 16 Blood Pressure Pulse Oximetry 99 99 99 10/11/18 03:00 10/11/18 04:00 10/11/18 05:00 Temperature 98.2 F Pulse Rate 73 73 Respiratory Rate 15 14 14 Blood Pressure Pulse Oximetry 99 99 100 10/11/18 06:00 10/11/18 07:00 10/11/18 07:11 Temperature Pulse Rate 64 68 Respiratory Rate 15 14 14 Blood Pressure Pulse Oximetry 100 100 100 10/11/18 08:00 10/11/18 09:00 10/11/18 10:00 Temperature 98.4 F Pulse Rate 62 59 L 67 Respiratory Rate 14 14 14 Blood Pressure Pulse Oximetry 100 100 100 10/11/18 10:52 10/11/18 11:00 10/11/18 12:00 Temperature 98.6 F Pulse Rate 67 69 Respiratory Rate 7 L 11 L 10 L Blood Pressure Pulse Oximetry 100 100 100 10/11/18 13:00 10/11/18 14:00 10/11/18 15:00 Temperature Pulse Rate 72 68 95 H Respiratory Rate 9 L 11 L 21 Blood Pressure Pulse Oximetry 100 100 100 10/11/18 16:00 Temperature 98.4 F Pulse Rate 66 Respiratory Rate 11 L Blood Pressure Pulse Oximetry 100 Intake & Output 10/10/18 10/11/18 10/11/18 18:59 06:59 18:59 Intake Total 622 / 622 881 / 881 650 / 650 Output Total 1901 / 1901 1385 / 1385 Balance -1279 / -1279 -504 / -504 650 / 650 Weight 90 kg Intake: IV 450 / 450 550 / 550 650 / 650 Versed Inj 100 mg In 100 ml @ 2 100 / 100 MG/HR 2 mls/hr IV.CONT TITRATE PRN Rx#:[id number] Versed Inj 50 mg In 50 ml @ 2 50 / 50 MG/HR 2 mls/hr IV.CONT TITRATE PRN Rx#:[id number] Diprivan 1000 mg/100 ml Inj 1, 300 / 300 200 / 200 200 / 200 000 mg In 100 ml @ 5 MCG/KG/MIN 2.835 mls/hr IV.CONT TITRATE PRN Rx#:[id number] Maxipime Inj 2,000 MG In NS Inj 100 / 100 100 / 100 100 / 100 100 ML @ 200 mls/hr IV.SIG Q12H ERIKA Rx#:[id number] fentaNYL 10 mcg/mL Premix Drip 250 / 250 250 / 250 2,500 mcg In 250 ml @ 50 MCG/HR 5 mls/hr IV.SIG TITRATE PRN Rx #:[id number] Tube Feeding 172 / 172 331 / 331 Output: Stool 0 / 0 Urine Amount (Catheter) 1750 / 1750 1200 / 1200 Indwelling Urethral Catheter 1750 / 1750 1200 / 1200 Gastric Drainage 0 / 0 Right Nare Nasogastric Tube 0 / 0 Wound Drainage 151 / 151 185 / 185 Posterior Lumbar 151 / 151 185 / 185 Other: Date of Last Bowel Movement 10/10/18 10/10/18 10/10/18 # Bowel Movements 0 Result Diagrams: 10/11/18 04:29 10/11/18 04:29 Objective Remarks: GENERAL: Elderly gentleman, lightly sedated for vent synchrony SKIN: warm/dry. HEAD: Normocephalic. Atraumatic EYES: No injection or drainage. No conjunctival icterus or injection ENT: Intubated through tracheostomy, site clean and dry NECK: Supple, trachea midline. CARDIOVASCULAR: S1-S2 normal, no murmurs. Neck veins are full, not tensely distended RESPIRATORY: Barrel-shaped chest. Air entry equal bilaterally, few scattered rhonchi, no wheezes. Plentiful mobile secretions GASTROINTESTINAL: Abdomen soft, non-tender, nondistended. Bowel sounds are active. No guarding. MUSCULOSKELETAL: No cyanosis, or edema. Warm, well-perfused. NEURO: Intubated via tracheostomy, lightly sedated for vent synchrony. Tolerate spontaneous breathing trials. Moves all 4 limbs to stimulation. 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 Code(s): M47.16 - Other spondylosis with myelopathy, lumbar region Status: Acute (2) Weakness of lower extremity Code(s): R29.898 - Other symptoms and signs involving the musculoskeletal system Status: Acute (3) COPD (chronic obstructive pulmonary disease) Code(s): J44.9 - Chronic obstructive pulmonary disease, unspecified Status: Chronic (4) History of prostate cancer Code(s): Z85.46 - Personal history of malignant neoplasm of prostate Status: Chronic (5) History of hypertension Code(s): Z86.79 - Personal history of other diseases of the circulatory system Status: Chronic - Assessment and Plan Plan: ASSESSMENT: Acute hypoxemic hypercarbic/hypoxemic respiratory failure Respiratory arrest after receiving Ativan on 10/05/2018 Hypotension now resolved Lumbar cord compression likely secondary to large herniated disc, with lower extremity weakness Right L2/L3 discectomy 10/04/2018 for removal residual disc at right L2/3 s/p L2-5 revision fusion and left L2/3 discectomy on 10/02/18. Hypotension on pressors History of previous lumbar posterior fusion and microdiscectomy by Dr. Hansen Acute on chronic kidney disease Anemia requiring transfusion History of prostate cancer COPD History of hypertension PLAN: NEURO: -MRI showing large herniated disc at L2/3 and flex/ex showing instability at this level. -s/p L2-5 revision fusion and left L2/3 discectomy on 10/02/18. -post-op MRI with significant disc herniation at right L2/3 despite resection, Right L2/L3 discectomy 10/04/2018 -Spinal precautions -Currently sedated with Versed and fentanyl. -Start Precedex to facilitate vent weaning, add Seroquel 50 twice daily -Neurosurgery Dr. Peter. Dr. Hansen following now -Geodon on hold, to take p.o. atypical antipsychotic Seroquel RESP: -Extubated 10/05/18 however became unresponsive and hypoxic after receiving Ativan for agitation -Emergently reintubated and placed on mechanical ventilation -Currently on PRVC/AC -Initiate spontaneous weaning trial after starting Precedex -DuoNeb every 6 hours scheduled and as needed -Scheduled Solu-Medrol for COPD -Aggressive pulmonary toilet -f/u sputum culture, continue empiric cefepime -Extubate again 10/07 -Required reintubation 5 hours after extubation due to secretions and hypoxemia. Situation made worse by underlying agitation. -Tracheostomy performed 10/08 -Continue spontaneous breathing trials. -Hold diuretics for a few days. CV: -Maintain Levophed as needed to keep map above 65 -Cardiac decompensation most likely secondary to pulmonary problems, hypoxemia -Gas exchange improving GI: -N.p.o., IV famotidine. Continue tube feeds -Bowel regimen : -Monitor renal function closely. -IV hydration will be discontinued and IV Lasix as above -Discontinue [place] for hourly intake output, monitor creatinine closely ID: -Sputum culture, continue cefepime 2 g IV every 12 hours HEME: -Transfused 1 unit PRBC -Monitor CBC, coags ENDO: -Electrolyte replacement per protocol PROPH: -Bilateral lower extremity SCDs. No chemical DVT prophylaxis due to spinal surgery/continue famotidine LINES: -Utilize peripheral IVs, central line as needed -PT evaluate and treat All impression: Patient remains critically ill and ventilator dependent and we have been unable to keep him extubated for more than a few hours. His baseline mental status was quite good prior to this and so far the family has requested ongoing aggressive care. We will continue to try to clean up his lungs and restart ventilator weaning trials when he becomes more stable. Lumbar drain in place, hold transfer to LTAC for now. Critical care time 38 minutes aside from procedures.
[2018-10-12] MEDS: Propofol 1000 mg/100 ml Inj 1,000 MG/100 ML BOTTLE IV.CONT PRN ×5 (00:55→20:26)
[2018-10-12 03:26] LABS: Baso % (Auto) 0.5 % (0.0-2.0); Eos # (Auto) 0.3 th/mm3 (0.0-0.4); Eos % (Auto) 3.7 % (0.0-4.0); Hemoglobin 8.5 gm/dL (13.0-17.0); Lymph # (Auto) 0.7 th/mm3 (1.0-4.8); Lymph % (Auto) 8.2 % (9.0-44.0); Mean Corpuscular HGB Conc 32.8 % (32.0-36.0); Mean Corpuscular Hemoglobin 28.8 pg (27.0-34.0); Mean Corpuscular Volume 87.8 fL (80.0-100.0); Mean Platelet Volume 8.1 fL (7.0-11.0); Mono # (Auto) 0.7 th/mm3 (0.0-0.9); Neut % (Auto) 79.6 % (16.0-70.0); Platelet Count 201 th/mm3 (150-450); Red Blood Count 2.97 mil/mm3 (4.50-5.90); Red Cell Distribution Width 20.8 % (11.6-17.2); White Blood Count 8.8 th/mm3 (4.0-11.0)
[2018-10-12 03:51] LABS: Calcium 8.8 mg/dL (8.5-10.1); Carbon Dioxide 24.1 meq/L (21.0-32.0); Potassium 3.8 meq/L (3.5-5.1)
[2018-10-12] MEDS: Oral Hygiene Kit OROPHARYNG SCH ×3 (04:28→16:19)
[2018-10-12] MEDS: hydrALAZINE HCl Inj 20 MG/ML Vial IV.PUSH PRN (04:57)
[2018-10-12] MEDS: fentaNYL 10 mcg/mL Premix Drip 2,500 MCG/250 ML BAG IV.SIG PRN ×2 (05:35→08:30)
--- NOTE | 2018-10-12 07:05 | P.PNCC ---
Subjective Subjective Remarks/Hospital Course: Patient is a 73-year-old male with past medical history significant for hypertension, COPD, Prostate carcinoma, history of previous lumbar laminectomy who came to the [place] emergency department as a transfer from transfer from [facility]. He was accepted by neurosurgery Dr. Peter for acute onset bilateral lower extremity weakness. Patient states that he woke up this morning around 6 AM with numbness and weakness of bilateral lower extremity. On attempt to walk he fell on his face due to weakness. Patient states that the strength got slight better since then. CT scan of the lumbar spine large area of soft attenuation attenuation in the ventral epidural space L2-L3 level suspicious for large disc extrusion with spinal canal stenosis with differential diagnosis involving hemorrhage, there is also at least moderate bilateral neural foraminal stenosis. I evaluate the patient in the ED. He complains of weakness more on the left leg which he is unable to lift. There is generalized numbness but he is able to feel my touch. Critical care was requested to admit the patient to the ICU. Discussed with Dr. Mittal ED and Dr. Peter neurosurgery. A stat MRI of the lumbar spine had been ordered. 10/03: Remains intubated sedated. Remains on Levophed at 10 mcg/min to maintain map above 70. Patient is s/p L2 to L5 posterior spinal fusion, Left L2 /3 microdiscectomy. (MRI showed large herniated disc at L2/3 and flex/ex showing instability at this level). On sedation hold patient is moving all 4 extremities. Hb 8.3 will transfuse 1 unit PRBC due to hypotension 10/04: Remains intubated sedated remains on 8 mcg/min of Levophed to maintain map above 75. Transfusing 1 unit PRBC for hemoglobin 7.4. post-op MRI with significant disc herniation at L2/3. Scheduled for surgery today with Dr. Peter 10/05: Patient underwent surgery on 10/04/2018 for removal residual disc at L2/ 3 right side based on post-op MRI. (s/p L2-5 revision fusion and left L2/3 discectomy on 10/02/18). Today patient's hypoxemia had improved, he was awake but on lightening sedation was very agitated so after a short CPAP trial patient was extubated. Shortly after extubation patient became very agitated requiring four-point restraints and physically nurses having to restrain him. 2 mg IV Ativan was given following which patient became partially responsive with obstructive airway sounds. Shortly became hypoxemic desaturated, became bradycardic in 40s and systolic blood pressure does drop to mid 40s. I was emergently called to the bedside I started bag and mask ventilation immediately. Half ampule of epinephrine was post IV. His heart rate in systolic blood pressure improved with bag and mask ventilation and epinephrine push however he remained unresponsive. Emergently intubated and placed on mechanical ventilation. Once more responsive will start on sedation with Versed. Start Levophed to maintain map above 65. Postintubation chest x-ray is pending. 10/06: Remains intubated heavily sedated for vent synchrony. Patient gets very agitated on holding sedation. We will start Precedex to facilitate vent weaning. Hemoglobin is 7.1, 1 unit of PRBC followed by IV Lasix ordered. 10/07: Agitated. TVs > 1.0 liter spontaneous. Extubated. Patient required reintubation about 5 hours later due to hypoxemia. 10/08: Intubated for the third time last evening. He is unable to tolerate extubation due to a combination of underlying lung disease and severe agitation. If the family wishes to proceed he will require tracheostomy for safe weaning from the ventilator. His baseline mental status is apparently pretty close to normal. 10/09: Tracheostomy placed yesterday. Large amounts of white thick secretions encountered. Chest x-ray continues with a pattern of pulmonary edema. We will continue aggressive twice daily diuretic therapy. Ostensibly plan is to transfer to [facility] at the beginning of next week. One family member is not on board with that yet however. 10/10: Lumbar drain has been placed. Continue spontaneous breathing trials through tracheostomy. Continue discussions with family about transfer to LTAC for long-term weaning. No evidence of infection. 10/11: Effective diuresis but now developing a mild prerenal azotemia. Will hold off for a while and gently hydrate. Now the tracheostomy is performed there is not quite urgency to desiccate his lungs. Hopefully we can work toward a cyst transferred to [facility] after lumbar drain discontinued. 10/12: Following tracheostomy we will continue with attempts at ventilator weaning. Patient has a lumbar drain in place in an attempt to stop a lumbar region wound CSF leak. [facility] will take this patient for long-term weaning once lumbar drain is out. Gentle hydration continues until such time as prerenal azotemia is attenuated. Continue enteral nutrition. Objective Vital Signs / I&O: Vital Signs 10/11/18 07:00 10/11/18 07:11 10/11/18 08:00 Temperature 98.4 F Pulse Rate 68 62 Respiratory Rate 14 14 14 Pulse Oximetry 100 100 100 10/11/18 09:00 10/11/18 10:00 10/11/18 10:52 Temperature Pulse Rate 59 L 67 Respiratory Rate 14 14 7 L Pulse Oximetry 100 100 100 10/11/18 11:00 10/11/18 12:00 10/11/18 13:00 Temperature 98.6 F Pulse Rate 67 69 72 Respiratory Rate 11 L 10 L 9 L Pulse Oximetry 100 100 100 10/11/18 14:00 10/11/18 15:00 10/11/18 16:00 Temperature 98.4 F Pulse Rate 68 95 H 66 Respiratory Rate 11 L 21 11 L Pulse Oximetry 100 100 100 10/11/18 18:14 10/11/18 19:00 10/11/18 19:36 Temperature Pulse Rate 67 Respiratory Rate 16 15 Pulse Oximetry 100 100 100 10/11/18 20:00 10/11/18 21:00 10/11/18 22:00 Temperature 98.5 F Pulse Rate 85 76 67 Respiratory Rate 14 14 14 Pulse Oximetry 100 100 100 10/11/18 23:00 10/11/18 23:25 10/12/18 00:00 Temperature 98.8 F Pulse Rate 69 69 Respiratory Rate 14 14 14 Pulse Oximetry 100 100 100 10/12/18 01:00 10/12/18 02:00 10/12/18 03:00 Temperature Pulse Rate 68 66 69 Respiratory Rate 14 14 14 Pulse Oximetry 100 100 100 10/12/18 03:16 10/12/18 04:00 10/12/18 05:00 Temperature Pulse Rate 78 104 H Respiratory Rate 14 14 19 Pulse Oximetry 100 99 100 10/12/18 06:00 Temperature Pulse Rate 81 Respiratory Rate 15 Pulse Oximetry 100 Intake & Output 10/11/18 10/11/18 10/12/18 06:59 18:59 06:59 Intake Total 881 / 881 1398 / 1398 2092 / 2092 Output Total 1385 / 1385 2155 / 2155 650 / 650 Balance -504 / -504 -757 / -757 1442 / 1442 Weight 90 kg 89.5 kg Intake: IV 550 / 550 650 / 650 1650 / 1650 LR 1000 mL Inj 1,000 ML @ 100 1000 / 1000 mls/hr IV.CONT .Q10H [facility] Rx#: [id number] Versed Inj 100 mg In 100 ml @ 2 100 / 100 MG/HR 2 mls/hr IV.CONT TITRATE PRN Rx#:[id number] Diprivan 1000 mg/100 ml Inj 1, 200 / 200 200 / 200 300 / 300 000 mg In 100 ml @ 5 MCG/KG/MIN 2.835 mls/hr IV.CONT TITRATE PRN Rx#:[id number] Maxipime Inj 2,000 MG In NS Inj 100 / 100 100 / 100 100 / 100 100 ML @ 200 mls/hr IV.SIG Q12H [facility] Rx#:[id number] fentaNYL 10 mcg/mL Premix Drip 250 / 250 250 / 250 250 / 250 2,500 mcg In 250 ml @ 50 MCG/HR 5 mls/hr IV.SIG TITRATE PRN Rx #:[id number] Tube Feeding 331 / 331 448 / 448 442 / 442 Tube Irrigant 300 / 300 Output: Urine Amount (Catheter) 1200 / 1200 1950 / 1950 650 / 650 Indwelling Urethral Catheter 1200 / 1200 1950 / 1950 650 / 650 Wound Drainage 185 / 185 205 / 205 Posterior Lumbar 185 / 185 205 / 205 Other: Date of Last Bowel Movement 10/10/18 10/10/18 10/10/18 # Bowel Movements 0 0 Result Diagrams: 10/12/18 03:17 10/12/18 03:17 Objective Remarks: GENERAL: Elderly gentleman, lightly sedated for vent synchrony, ongoing vent weaning. SKIN: warm/dry. HEAD: Normocephalic. Atraumatic EYES: No injection or drainage. No conjunctival icterus or injection ENT: Intubated through tracheostomy, site clean and dry NECK: Supple, trachea midline. CARDIOVASCULAR: S1-S2 normal, no murmurs. Neck veins are full, not tensely distended. RESPIRATORY: Air entry equal bilaterally, few scattered rhonchi, no wheezes. Plentiful mobile secretions. White thick sputum. GASTROINTESTINAL: Abdomen soft, non-tender, nondistended. Bowel sounds are active. No guarding. MUSCULOSKELETAL: No cyanosis, or edema. Warm, well-perfused. NEURO: Intubated via tracheostomy, lightly sedated for vent synchrony. Tolerate spontaneous breathing trials. Moves all 4 limbs to stimulation. Episodically quite agitated. Of note, patient was perfectly well oriented and cooperative on admission. 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 Code(s): M47.16 - Other spondylosis with myelopathy, lumbar region Status: Acute (2) Weakness of lower extremity Code(s): R29.898 - Other symptoms and signs involving the musculoskeletal system Status: Acute (3) COPD (chronic obstructive pulmonary disease) Code(s): J44.9 - Chronic obstructive pulmonary disease, unspecified Status: Chronic (4) History of prostate cancer Code(s): Z85.46 - Personal history of malignant neoplasm of prostate Status: Chronic (5) History of hypertension Code(s): Z86.79 - Personal history of other diseases of the circulatory system Status: Chronic - Assessment and Plan Plan: ASSESSMENT: Acute hypoxemic hypercarbic/hypoxemic respiratory failure Respiratory arrest after receiving Ativan on 10/05/2018 Hypotension now resolved Lumbar cord compression likely secondary to large herniated disc, with lower extremity weakness Right L2/L3 discectomy 10/04/2018 for removal residual disc at right L2/3 s/p L2-5 revision fusion and left L2/3 discectomy on 10/02/18. Hypotension on pressors History of previous lumbar posterior fusion and microdiscectomy by Dr. Hansen Acute on chronic kidney disease Anemia requiring transfusion History of prostate cancer COPD History of hypertension PLAN: NEURO: -MRI showing large herniated disc at L2/3 and flex/ex showing instability at this level. -s/p L2-5 revision fusion and left L2/3 discectomy on 10/02/18. -post-op MRI with significant disc herniation at right L2/3 despite resection, Right L2/L3 discectomy 10/04/2018 -Spinal precautions -Currently sedated with Versed and fentanyl. -Start Precedex to facilitate vent weaning, add Seroquel 50 twice daily -Neurosurgery Dr. Peter. Dr. Hansen following now -Geodon on hold, to take p.o. atypical antipsychotic Seroquel -Lumbar drain in place to allow CSF leak to stop RESP: -Extubated 10/05/18 however became unresponsive and hypoxic after receiving Ativan for agitation -Emergently reintubated and placed on mechanical ventilation -Currently on PRVC/AC -Initiate spontaneous weaning trial after starting Precedex -DuoNeb every 6 hours scheduled and as needed -Scheduled Solu-Medrol for COPD -Aggressive pulmonary toilet -f/u sputum culture, continue empiric cefepime -Extubate again 10/07 -Required reintubation 5 hours after extubation due to secretions and hypoxemia. Situation made worse by underlying agitation. -Tracheostomy performed 10/08 -Continue spontaneous breathing trials. -Hold diuretics for a few days. CV: -Maintain Levophed as needed to keep map above 65 -Cardiac decompensation most likely secondary to pulmonary problems, hypoxemia -Gas exchange improving GI: -N.p.o., IV famotidine. Continue tube feeds -Bowel regimen : -Monitor renal function closely. -IV hydration will be discontinued and IV Lasix as above -Discontinue [place] for hourly intake output, monitor creatinine closely -Resolving azotemia ID: -Sputum culture, continue cefepime 2 g IV every 12 hours HEME: -Transfused 1 unit PRBC -Monitor CBC, coags ENDO: -Electrolyte replacement per protocol PROPH: -Bilateral lower extremity SCDs. No chemical DVT prophylaxis due to spinal surgery/continue famotidine LINES: -Utilize peripheral IVs, central line as needed -PT evaluate and treat All impression: Patient remains critically ill and ventilator dependent and we have been unable to keep him extubated for more than a few hours. His baseline mental status was quite good prior to this and so far the family has requested ongoing aggressive care. We will continue to try to clean up his lungs and encourage ventilator weaning. Lumbar drain in place, hold transfer to LTAC for now. It seems the gentleman either has pleural effusions or renal failure depending how successfully we have diuresed him. He remains unstable and will likely be a long-term vent weaning problem. Critical care time 38 minutes aside from procedures.
--- NOTE | 2018-10-12 07:11 | IR ---
EXAM DATE: 10/09/2018 6:13 PM EST AGE/SEX: 73 years / Male INDICATIONS: Patient presents with ventilator dependent and history of back surgery in need of a Lum bar Drain placement. CLINICAL DATA: This is the patient's initial encounter. Patient reports that signs and symptoms have been present for 1 day and indicates a pain score of Nonresponsive. Location: , Laterality: MEDICAL/SURGICAL HISTORY: Gastroesophageal reflux disease. Hypertension. Neuropathy, Osteoarth ritis, Colonic polyp, Neuropathy, Prostate carcinoma. . Endarterectomy. COMPARISON: No prior exams available for comparison. FLUORO TIME (min): 2.3 IMAGE SERIES: 5 ACCESS SITE: L1-2 LUMBAR PUNCTURE TIME: 1528 hours FLUID: Total volume of 8 cc of clear fluid was removed. Fluid was sent to lab for ordered studies. DEVICE(S): 4 Ghanaian lumbar drain catheter . . PROCEDURE: 1. Fluoroscopically guided lumbar drain placement. 2. Conscious sedation with continuous EKG and oximetry monitoring. Patient has fusion from L2 to S1. Suspected CSF leak at L2-L3. Lumbar drain requested. The risks, michael efits and alternatives to the procedure were explained and verbal and written consent was obtained. The site was prepped in sterile fashion. Full sterile technique was used, including cap, mask, steri le gloves and gown and a large sterile sheet. Hand hygiene and 2% chlorhexidine and/or betadine/alco hol prep was utilized per protocol for cutaneous antisepsis. The skin and subcutaneous tissues were infiltrated with local anesthetic solution. With fluoroscopic guidance the lumbar thecal sac was punctured with a 14 gauge Touhy needle at L1-L2 and a lumbar drain was placed with its tip at T5 and the catheter was sutured in place. CSF was ident ified returning from the catheter at the termination of the procedure. Conscious sedation was performed with the prescribed dosages and duration as above in the presence of an independent trained radiology nurse to assist in the monitoring of the patient. EKG and oximetry remained stable throughout the procedure. The patient tolerated the procedure well and there were n o complications. The patient was sent to post anesthesia recovery in stable condition. CONCLUSION: 1. Uncomplicated lumbar drain placement as above. Electronically signed by: Todd Prater MD 10/12/2018 7:10 AM EST
[2018-10-12] MEDS: Chlorhexidine 0.12% Oral Kit 15 ML UDC OROPHARYNG SCH ×2 (08:29→20:27)
[2018-10-12] MEDS: Divalproex 125 MG Sprinkles Capsule PO SCH ×2 (08:29→20:58)
[2018-10-12] MEDS: QUEtiapine 25 MG Tablet PO SCH ×2 (08:29→20:58)
[2018-10-12] MEDS: Senna/Docusate Sodium 8.6/50 MG Tablet PO SCH ×2 (08:29→20:59)
[2018-10-12] MEDS: Sodium Chloride 0.9% 2 ML Flush BID IV.FLUSH SCH ×2 (08:30→20:59)
[2018-10-12] MEDS: Famotidine PF Inj 20 MG/2 ML Vial IV.PUSH SCH ×2 (08:30→20:59)
--- NOTE | 2018-10-12 11:16 | P.PNNS ---
Subjective Interval history: lubmar drain draining well Physical Exam Vital signs: Vital Signs 10/11/18 12:00 10/11/18 13:00 10/11/18 14:00 Temperature 98.6 F Pulse Rate 69 72 68 Respiratory Rate 10 L 9 L 11 L Blood Pressure Pulse Oximetry 100 100 100 10/11/18 15:00 10/11/18 16:00 10/11/18 18:14 Temperature 98.4 F Pulse Rate 95 H 66 Respiratory Rate 21 11 L Blood Pressure Pulse Oximetry 100 100 100 10/11/18 19:00 10/11/18 19:36 10/11/18 20:00 Temperature 98.5 F Pulse Rate 67 85 Respiratory Rate 16 15 14 Blood Pressure Pulse Oximetry 100 100 100 10/11/18 21:00 10/11/18 22:00 10/11/18 23:00 Temperature Pulse Rate 76 67 69 Respiratory Rate 14 14 14 Blood Pressure Pulse Oximetry 100 100 100 10/11/18 23:25 10/12/18 00:00 10/12/18 01:00 Temperature 98.8 F Pulse Rate 69 68 Respiratory Rate 14 14 14 Blood Pressure Pulse Oximetry 100 100 100 10/12/18 02:00 10/12/18 03:00 10/12/18 03:16 Temperature Pulse Rate 66 69 Respiratory Rate 14 14 14 Blood Pressure Pulse Oximetry 100 100 100 10/12/18 04:00 10/12/18 05:00 10/12/18 06:00 Temperature Pulse Rate 78 104 H 81 Respiratory Rate 14 19 15 Blood Pressure Pulse Oximetry 99 100 100 10/12/18 07:00 10/12/18 08:00 10/12/18 08:20 Temperature 98.1 F Pulse Rate 70 75 Respiratory Rate 16 18 17 Blood Pressure Pulse Oximetry 100 100 100 10/12/18 09:00 Temperature Pulse Rate 74 Respiratory Rate 17 Blood Pressure 133/51 L Pulse Oximetry 100 Intake & Output 10/11/18 10/12/18 10/12/18 18:59 06:59 18:59 Intake Total 1398 / 1398 2092 / 2092 100 / 100 Output Total 2155 / 2155 810 / 810 Balance -757 / -757 1282 / 1282 100 / 100 Weight 89.5 kg Intake: IV 650 / 650 1650 / 1650 100 / 100 LR 1000 mL Inj 1,000 ML @ 100 1000 / 1000 mls/hr IV.CONT .Q10H [facility] Rx#: [id number] Versed Inj 100 mg In 100 ml @ 2 100 / 100 MG/HR 2 mls/hr IV.CONT TITRATE PRN Rx#:[id number] Diprivan 1000 mg/100 ml Inj 1, 200 / 200 300 / 300 100 / 100 000 mg In 100 ml @ 5 MCG/KG/MIN 2.835 mls/hr IV.CONT TITRATE PRN Rx#:[id number] Maxipime Inj 2,000 MG In NS Inj 100 / 100 100 / 100 100 ML @ 200 mls/hr IV.SIG Q12H [facility] Rx#:[id number] fentaNYL 10 mcg/mL Premix Drip 250 / 250 250 / 250 2,500 mcg In 250 ml @ 50 MCG/HR 5 mls/hr IV.SIG TITRATE PRN Rx #:[id number] Tube Feeding 448 / 448 442 / 442 Tube Irrigant 300 / 300 Output: Urine Amount (Catheter) 1949 650 / 650 Indwelling Urethral Catheter 1949 650 / 650 Wound Drainage 160 / 160 Posterior Lumbar 160 / 160 Other: Date of Last Bowel Movement 10/10/18 10/10/18 10/10/18 # Bowel Movements 0 0 Narrative: pupils 3-4 mm equal b/l moves arms not lower extremities not following commands, plantars silent bilaterally dressing intact, felt dry, lumbar drain intact. Was instructed by Dr. Hansen to keep current dressing on lumbar drain draining well with clear CSF in reservoir bag - Urinary Catheter Management Indwelling Urethral Catheter Cath placed during this visit: yes Reason for continuing: Hourly intake/output Insertion date: 10/02/18 Insertion time: 20:32 Assessment and Plan - Plan 73yoM po (10/02/18) L2-5 revision fusion and left L2/3 discectomy 10/10 MRI T-and L-spine from 10/09 look good with good decompression Lumbar drain placed 10/[address] Méndez-- much appreciated Drain working well and meeting targets 80-120/ 8 hour period CSF clean Will plan lumbar drainage through early next week Dressing much leather drier this morning 10/11 Dressing still getting wet, particularly on turning for prolonged time- changed to silver dressing this morning. Continue Lumbar drainage goals as above 180/12 hrs or (80-120)/8hrs. May need operative repair of CSF leak if this persists, possibly Sunday 10/[address] Arrington / ICU / CPAP 10/12 cont lumbar draining - goals as above per Dr. Peter poss repair of CSF leak this week
[2018-10-13] MEDS: Propofol 1000 mg/100 ml Inj 1,000 MG/100 ML BOTTLE IV.CONT PRN ×6 (00:26→23:01)
[2018-10-13] MEDS: Oral Hygiene Kit OROPHARYNG SCH ×4 (00:44→15:54)
[2018-10-13] MEDS: fentaNYL 10 mcg/mL Premix Drip 2,500 MCG/250 ML BAG IV.SIG PRN ×2 (01:12→20:41)
--- NOTE | 2018-10-13 05:11 | XR ---
EXAM DATE: 10/13/2018 5:01 AM EST AGE/SEX: 73 years / Male INDICATIONS: Hypoxemia. CLINICAL DATA: This is the patient's subsequent encounter. Patient reports that signs and symptoms h ave been present for 1 week and indicates a pain score of Nonresponsive. MEDICAL/SURGICAL HISTORY: Non-responsive. Non-responsive. [place] [facility] [place]. . FINDINGS: Single AP view the chest. Tracheostomy tube remains place. Nasogastric tube is now seen. The tip is b elow the [id number] of the radiograph. Decreased bilateral pulmonary opacity. Patchy left lower lo be atelectasis versus consolidation. CONCLUSION: Decreased bilateral pulmonary opacity. Likely represents decreased pulmonary edema. Electronically signed by: Stuart Costa MD 10/13/2018 5:09 AM EST
[2018-10-13 05:34] LABS: Baso % (Auto) 0.1 % (0.0-2.0); Eos # (Auto) 0.5 th/mm3 (0.0-0.4); Eos % (Auto) 4.7 % (0.0-4.0); Hematocrit 26.2 % (39.0-51.0); Hemoglobin 8.6 gm/dL (13.0-17.0); Lymph # (Auto) 0.7 th/mm3 (1.0-4.8); Lymph % (Auto) 7.1 % (9.0-44.0); Mean Corpuscular HGB Conc 32.9 % (32.0-36.0); Mean Corpuscular Volume 88.1 fL (80.0-100.0); Mean Platelet Volume 8.4 fL (7.0-11.0); Mono # (Auto) 0.8 th/mm3 (0.0-0.9); Mono % (Auto) 7.3 % (0.0-8.0); Neut # (Auto) 8.5 th/mm3 (1.8-7.7); Neut % (Auto) 80.8 % (16.0-70.0); Platelet Count 189 th/mm3 (150-450); Red Blood Count 2.97 mil/mm3 (4.50-5.90); White Blood Count 10.5 th/mm3 (4.0-11.0)
[2018-10-13 05:56] LABS: Calcium 8.9 mg/dL (8.5-10.1); Potassium 3.9 meq/L (3.5-5.1)
[2018-10-13] MEDS: Midazolam 100 MG/100 ML Inj 100 MG/100 ML BAG IV.CONT PRN (08:23)
[2018-10-13] MEDS: Famotidine PF Inj 20 MG/2 ML Vial IV.PUSH SCH ×2 (08:23→20:39)
[2018-10-13] MEDS: Senna/Docusate Sodium 8.6/50 MG Tablet PO SCH ×2 (08:23→20:40)
[2018-10-13] MEDS: QUEtiapine 25 MG Tablet PO SCH ×2 (08:23→20:40)
[2018-10-13] MEDS: Divalproex 125 MG Sprinkles Capsule PO SCH ×2 (08:23→20:37)
[2018-10-13] MEDS: Chlorhexidine 0.12% Oral Kit 15 ML UDC OROPHARYNG SCH ×2 (08:24→20:36)
[2018-10-13] MEDS: Sodium Chloride 0.9% 2 ML Flush BID IV.FLUSH SCH ×2 (08:25→20:39)
--- NOTE | 2018-10-13 08:40 | P.PNNS ---
Subjective Interval history: lumbar wound inspected, draining dark red CSF. lumbar drain in place. <Angelica Boyce - Last Filed: 10/13/18 10:37> Physical Exam Vital signs: Vital Signs 10/12/18 09:00 10/12/18 10:00 10/12/18 11:00 Temperature Pulse Rate 74 69 85 Respiratory Rate 17 9 L 12 Blood Pressure 133/51 L Pulse Oximetry 100 100 100 10/12/18 11:43 10/12/18 12:00 10/12/18 13:00 Temperature 98.5 F Pulse Rate 84 79 Respiratory Rate 8 L 7 L 8 L Blood Pressure Pulse Oximetry 100 100 100 10/12/18 14:00 10/12/18 15:00 10/12/18 16:00 Temperature 98.9 F Pulse Rate 84 82 80 Respiratory Rate 8 L 12 11 L Blood Pressure Pulse Oximetry 100 100 100 10/12/18 17:00 10/12/18 17:15 10/12/18 18:00 Temperature Pulse Rate 75 71 76 Respiratory Rate 6 L 6 L 11 L Blood Pressure 150/55 H Pulse Oximetry 100 100 100 10/12/18 19:00 10/12/18 20:00 10/12/18 21:00 Temperature 98.9 F Pulse Rate 72 76 78 Respiratory Rate 14 14 12 Blood Pressure Pulse Oximetry 100 100 100 10/12/18 22:00 10/12/18 22:18 10/12/18 23:00 Temperature Pulse Rate 73 73 Respiratory Rate 14 12 17 Blood Pressure Pulse Oximetry 100 100 99 10/12/18 23:41 10/13/18 00:00 10/13/18 01:00 Temperature 97.4 F L Pulse Rate 72 74 Respiratory Rate 14 19 14 Blood Pressure Pulse Oximetry 100 100 100 10/13/18 02:00 10/13/18 03:00 10/13/18 03:24 Temperature Pulse Rate 72 79 Respiratory Rate 14 14 14 Blood Pressure Pulse Oximetry 100 100 100 10/13/18 04:00 10/13/18 05:00 10/13/18 06:00 Temperature Pulse Rate 71 82 78 Respiratory Rate 14 18 17 Blood Pressure Pulse Oximetry 100 100 99 10/13/18 07:48 Temperature Pulse Rate Respiratory Rate 12 Blood Pressure Pulse Oximetry 100 Intake & Output 10/12/18 10/13/18 10/13/18 18:59 06:59 18:59 Intake Total 2077 / 2077 2110 / 2110 100 / 100 Output Total 1040 / 1040 950 / 950 Balance 1037 / 1037 1160 / 1160 100 / 100 Weight 89.5 kg Intake: IV 1550 / 1550 1500 / 1500 100 / 100 LR 1000 mL Inj 1,000 ML @ 100 1000 / 1000 850 / 850 mls/hr IV.CONT .Q10H [facility] Rx#: [id number] Versed Inj 100 mg In 100 ml @ 2 100 / 100 MG/HR 2 mls/hr IV.CONT TITRATE PRN Rx#:[id number] Diprivan 1000 mg/100 ml Inj 1, 200 / 200 300 / 300 000 mg In 100 ml @ 5 MCG/KG/MIN 2.835 mls/hr IV.CONT TITRATE PRN Rx#:[id number] Maxipime Inj 2,000 MG In NS Inj 100 / 100 100 / 100 100 ML @ 200 mls/hr IV.SIG Q12H [facility] Rx#:[id number] fentaNYL 10 mcg/mL Premix Drip 250 / 250 250 / 250 2,500 mcg In 250 ml @ 50 MCG/HR 5 mls/hr IV.SIG TITRATE PRN Rx #:[id number] Oral 0 / 0 Tube Feeding 407 / 407 430 / 430 Water Bolus Amount 120 / 120 180 / 180 Output: Stool 0 / 0 Urine Amount (Catheter) 900 / 900 800 / 800 Indwelling Urethral Catheter 900 / 900 800 / 800 Gastric Drainage 0 / 0 Right Nare Nasogastric Tube 0 / 0 Wound Drainage 140 / 140 150 / 150 Posterior Lumbar 140 / 140 150 / 150 Other: Date of Last Bowel Movement 10/10/18 10/10/18 # Bowel Movements 0 Narrative: lumbar wound dehisced with dark red CSF drainage, Optifoam dressing replaced. - Urinary Catheter Management Indwelling Urethral Catheter Cath placed during this visit: yes Reason for continuing: Hourly intake/output Insertion date: 10/02/18 Insertion time: 20:32 <Angelica Boyce - Last Filed: 10/13/18 10:37> Vital signs: Vital Signs 10/17/18 22:00 10/17/18 23:00 10/17/18 23:07 Temperature Pulse Rate 102 H 94 H 101 H Respiratory Rate 66 H 21 Pulse Oximetry 97 98 98 10/18/18 00:00 10/18/18 01:00 10/18/18 02:00 Temperature 99.9 F H Pulse Rate 108 H 106 H 113 H Respiratory Rate 43 H 22 21 Pulse Oximetry 97 99 97 10/18/18 03:00 10/18/18 03:17 10/18/18 04:00 Temperature 100.1 F H Pulse Rate 118 H 110 H 117 H Respiratory Rate 20 28 H 23 Pulse Oximetry 100 98 95 10/18/18 05:00 10/18/18 06:00 10/18/18 06:21 Temperature Pulse Rate 120 H 111 H Respiratory Rate 21 22 22 Pulse Oximetry 95 94 L 10/18/18 07:00 10/18/18 08:00 10/18/18 08:06 Temperature 102 F H Pulse Rate 112 H 127 H 125 H Respiratory Rate 27 H 28 H 27 H Pulse Oximetry 93 L 97 96 10/18/18 08:59 10/18/18 09:00 10/18/18 10:00 Temperature 99.4 F Pulse Rate 88 89 88 Respiratory Rate 27 H 23 23 Pulse Oximetry 98 96 98 10/18/18 11:00 10/18/18 11:49 10/18/18 11:51 Temperature 99.6 F 99.6 F Pulse Rate 99 H 92 H 107 H Respiratory Rate 27 H 21 23 Pulse Oximetry 97 95 95 10/18/18 11:55 10/18/18 12:00 10/18/18 12:10 Temperature 99.6 F 99.6 F 97.4 F L Pulse Rate 94 H 95 H 109 H Respiratory Rate 19 27 H 18 Pulse Oximetry 95 95 95 10/18/18 13:00 10/18/18 14:00 10/18/18 15:00 Temperature 99.2 F Pulse Rate 94 H 100 H 97 H Respiratory Rate 23 27 H Pulse Oximetry 96 96 96 10/18/18 16:00 10/18/18 16:49 10/18/18 16:56 Temperature 99.5 F Pulse Rate 112 H 129 H Respiratory Rate 35 H Pulse Oximetry 96 94 L 10/18/18 17:00 10/18/18 18:00 10/18/18 19:18 Temperature Pulse Rate 123 H 117 H 116 H Respiratory Rate 27 H 27 H 29 H Pulse Oximetry 96 95 10/18/18 20:00 Temperature Pulse Rate 80 Respiratory Rate Pulse Oximetry Intake & Output 10/18/18 10/18/18 10/19/18 06:59 18:59 06:59 Intake Total 1461 / 1461 1798 / 1798 1100 / 1100 Output Total 1170 / 1170 1140 / 1140 Balance 291 / 291 658 / 658 1100 / 1100 Weight 95 kg Intake: IV 1200 / 1200 915 / 915 1100 / 1100 LR 1000 mL Inj 1,000 ML @ 100 1000 / 1000 300 / 300 1000 / 1000 mls/hr IV.CONT .Q10H [facility] Rx#: [id number] Azactam Inj 2,000 MG In NS Inj 200 / 200 100 / 100 100 / 100 100 ML @ 200 mls/hr IV.SIG Q8H [facility] Rx#:[id number] Vancomycin Inj 1,500 MG In NS 515 / 515 Inj 500 ML @ 250 mls/hr IV.SIG Q24H [facility] Rx#:[id number] Tube Feeding 141 / 141 483 / 483 Water Bolus Amount 120 / 120 Intake (Blood Product) Amt 400 / 400 Rbc As-3 Leukoreduced Unit 400 / 400 [id number] Output: Stool 0 / 0 Urine Amount (Catheter) 1000 / 1000 1050 / 1050 Indwelling Urethral Catheter 1000 / 1000 1050 / 1050 Wound Drainage 170 / 170 90 / 90 Posterior Lumbar 170 / 170 90 / 90 Other: Date of Last Bowel Movement 10/16/18 10/16/18 # Bowel Movements 0 # Incontinent Bowel Movements 0 - Urinary Catheter Management Indwelling Urethral Catheter Cath placed during this visit: no <Jorden Hansen - Last Filed: 10/18/18 21:17> Assessment and Plan - Plan 73yoM po (10/02/18) L2-5 revision fusion and left L2/3 discectomy hold tube feeds tonight OR with Dr. Peter tomorrow for repair of CSF leak <Angelica Boyce - Last Filed: 10/13/18 10:37>
--- NOTE | 2018-10-13 09:00 | P.PNCC ---
Subjective Subjective Remarks/Hospital Course: Patient is a 73-year-old male with past medical history significant for hypertension, COPD, Prostate carcinoma, history of previous lumbar laminectomy who came to the [facility] emergency department as a transfer from transfer from [facility]. He was accepted by neurosurgery Dr. Peter for acute onset bilateral lower extremity weakness. Patient states that he woke up this morning around 6 AM with numbness and weakness of bilateral lower extremity. On attempt to walk he fell on his face due to weakness. Patient states that the strength got slight better since then. CT scan of the lumbar spine large area of soft attenuation attenuation in the ventral epidural space L2-L3 level suspicious for large disc extrusion with spinal canal stenosis with differential diagnosis involving hemorrhage, there is also at least moderate bilateral neural foraminal stenosis. I evaluate the patient in the ED. He complains of weakness more on the left leg which he is unable to lift. There is generalized numbness but he is able to feel my touch. Critical care was requested to admit the patient to the ICU. Discussed with Dr. Mittal ED and Dr. Peter neurosurgery. A stat MRI of the lumbar spine had been ordered. 10/03: Remains intubated sedated. Remains on Levophed at 10 mcg/min to maintain map above 70. Patient is s/p L2 to L5 posterior spinal fusion, Left L2 /3 microdiscectomy. (MRI showed large herniated disc at L2/3 and flex/ex showing instability at this level). On sedation hold patient is moving all 4 extremities. Hb 8.3 will transfuse 1 unit PRBC due to hypotension 10/04: Remains intubated sedated remains on 8 mcg/min of Levophed to maintain map above 75. Transfusing 1 unit PRBC for hemoglobin 7.4. post-op MRI with significant disc herniation at L2/3. Scheduled for surgery today with Dr. Peter 10/05: Patient underwent surgery on 10/04/2018 for removal residual disc at L2/ 3 right side based on post-op MRI. (s/p L2-5 revision fusion and left L2/3 discectomy on 10/02/18). Today patient's hypoxemia had improved, he was awake but on lightening sedation was very agitated so after a short CPAP trial patient was extubated. Shortly after extubation patient became very agitated requiring four-point restraints and physically nurses having to restrain him. 2 mg IV Ativan was given following which patient became partially responsive with obstructive airway sounds. Shortly became hypoxemic desaturated, became bradycardic in 40s and systolic blood pressure does drop to mid 40s. I was emergently called to the bedside I started bag and mask ventilation immediately. Half ampule of epinephrine was post IV. His heart rate in systolic blood pressure improved with bag and mask ventilation and epinephrine push however he remained unresponsive. Emergently intubated and placed on mechanical ventilation. Once more responsive will start on sedation with Versed. Start Levophed to maintain map above 65. Postintubation chest x-ray is pending. 10/06: Remains intubated heavily sedated for vent synchrony. Patient gets very agitated on holding sedation. We will start Precedex to facilitate vent weaning. Hemoglobin is 7.1, 1 unit of PRBC followed by IV Lasix ordered. 10/07: Agitated. TVs > 1.0 liter spontaneous. Extubated. Patient required reintubation about 5 hours later due to hypoxemia. 10/08: Intubated for the third time last evening. He is unable to tolerate extubation due to a combination of underlying lung disease and severe agitation. If the family wishes to proceed he will require tracheostomy for safe weaning from the ventilator. His baseline mental status is apparently pretty close to normal. 10/09: Tracheostomy placed yesterday. Large amounts of white thick secretions encountered. Chest x-ray continues with a pattern of pulmonary edema. We will continue aggressive twice daily diuretic therapy. Ostensibly plan is to transfer to [facility] at the beginning of next week. One family member is not on board with that yet however. 10/10: Lumbar drain has been placed. Continue spontaneous breathing trials through tracheostomy. Continue discussions with family about transfer to LTAC for long-term weaning. No evidence of infection. 10/11: Effective diuresis but now developing a mild prerenal azotemia. Will hold off for a while and gently hydrate. Now the tracheostomy is performed there is not quite urgency to desiccate his lungs. Hopefully we can work toward a cyst transferred to [facility] after lumbar drain discontinued. 10/12: Following tracheostomy we will continue with attempts at ventilator weaning. Patient has a lumbar drain in place in an attempt to stop a lumbar region wound CSF leak. [facility] will take this patient for long-term weaning once lumbar drain is out. Gentle hydration continues until such time as prerenal azotemia is attenuated. Continue enteral nutrition. 10/13: Remains on mechanical ventilation via tracheostomy. Still on significant sedation due to agitation issues. Lumbar drain continues to drain. Possible surgery tomorrow. Objective Vital Signs / I&O: Vital Signs 10/12/18 09:00 10/12/18 10:00 10/12/18 11:00 Temperature Pulse Rate 74 69 85 Respiratory Rate 17 9 L 12 Blood Pressure 133/51 L Pulse Oximetry 100 100 100 10/12/18 11:43 10/12/18 12:00 10/12/18 13:00 Temperature 98.5 F Pulse Rate 84 79 Respiratory Rate 8 L 7 L 8 L Blood Pressure Pulse Oximetry 100 100 100 10/12/18 14:00 10/12/18 15:00 10/12/18 16:00 Temperature 98.9 F Pulse Rate 84 82 80 Respiratory Rate 8 L 12 11 L Blood Pressure Pulse Oximetry 100 100 100 10/12/18 17:00 10/12/18 17:15 10/12/18 18:00 Temperature Pulse Rate 75 71 76 Respiratory Rate 6 L 6 L 11 L Blood Pressure 150/55 H Pulse Oximetry 100 100 100 10/12/18 19:00 10/12/18 20:00 10/12/18 21:00 Temperature 98.9 F Pulse Rate 72 76 78 Respiratory Rate 14 14 12 Blood Pressure Pulse Oximetry 100 100 100 10/12/18 22:00 10/12/18 22:18 10/12/18 23:00 Temperature Pulse Rate 73 73 Respiratory Rate 14 12 17 Blood Pressure Pulse Oximetry 100 100 99 10/12/18 23:41 10/13/18 00:00 10/13/18 01:00 Temperature 97.4 F L Pulse Rate 72 74 Respiratory Rate 14 19 14 Blood Pressure Pulse Oximetry 100 100 100 10/13/18 02:00 10/13/18 03:00 10/13/18 03:24 Temperature Pulse Rate 72 79 Respiratory Rate 14 14 14 Blood Pressure Pulse Oximetry 100 100 100 10/13/18 04:00 10/13/18 05:00 10/13/18 06:00 Temperature Pulse Rate 71 82 78 Respiratory Rate 14 18 17 Blood Pressure Pulse Oximetry 100 100 99 10/13/18 07:48 Temperature Pulse Rate Respiratory Rate 12 Blood Pressure Pulse Oximetry 100 Intake & Output 10/12/18 10/13/18 10/13/18 18:59 06:59 18:59 Intake Total 2077 / 2077 2110 / 2110 100 / 100 Output Total 1040 / 1040 950 / 950 Balance 1037 / 1037 1160 / 1160 100 / 100 Weight 89.5 kg Intake: IV 1550 / 1550 1500 / 1500 100 / 100 LR 1000 mL Inj 1,000 ML @ 100 1000 / 1000 850 / 850 mls/hr IV.CONT .Q10H [facility] Rx#: [id number] Versed Inj 100 mg In 100 ml @ 2 100 / 100 MG/HR 2 mls/hr IV.CONT TITRATE PRN Rx#:[id number] Diprivan 1000 mg/100 ml Inj 1, 200 / 200 300 / 300 000 mg In 100 ml @ 5 MCG/KG/MIN 2.835 mls/hr IV.CONT TITRATE PRN Rx#:[id number] Maxipime Inj 2,000 MG In NS Inj 100 / 100 100 / 100 100 ML @ 200 mls/hr IV.SIG Q12H [facility] Rx#:[id number] fentaNYL 10 mcg/mL Premix Drip 250 / 250 250 / 250 2,500 mcg In 250 ml @ 50 MCG/HR 5 mls/hr IV.SIG TITRATE PRN Rx #:[id number] Oral 0 / 0 Tube Feeding 407 / 407 430 / 430 Water Bolus Amount 120 / 120 180 / 180 Output: Stool 0 / 0 Urine Amount (Catheter) 900 / 900 800 / 800 Indwelling Urethral Catheter 900 / 900 800 / 800 Gastric Drainage 0 / 0 Right Nare Nasogastric Tube 0 / 0 Wound Drainage 140 / 140 150 / 150 Posterior Lumbar 140 / 140 150 / 150 Other: Date of Last Bowel Movement 10/10/18 10/10/18 # Bowel Movements 0 Result Diagrams: 10/13/18 05:12 10/13/18 05:12 Objective Remarks: GENERAL: Elderly gentleman, lightly sedated for vent synchrony, ongoing vent weaning. SKIN: warm/dry. HEAD: Normocephalic. Atraumatic EYES: No injection or drainage. No conjunctival icterus or injection ENT: tracheostomy in place, site clean and dry NECK: Tracheostomy in place CARDIOVASCULAR: S1-S2 normal, no murmurs. Neck veins are full, not tensely distended. RESPIRATORY: Air entry equal bilaterally, few scattered rhonchi, no wheezes. Plentiful mobile secretions. GASTROINTESTINAL: Abdomen soft, non-tender, nondistended. Bowel sounds are active. No guarding. MUSCULOSKELETAL: No cyanosis, or edema. Warm, well-perfused. NEURO: Intubated via tracheostomy, lightly sedated for vent synchrony. Tolerate spontaneous breathing trials. Moves all 4 limbs to stimulation. Episodically quite agitated. Of note, patient was perfectly well oriented and cooperative on admission. 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 Code(s): M47.16 - Other spondylosis with myelopathy, lumbar region Status: Acute (2) Weakness of lower extremity Code(s): R29.898 - Other symptoms and signs involving the musculoskeletal system Status: Acute (3) COPD (chronic obstructive pulmonary disease) Code(s): J44.9 - Chronic obstructive pulmonary disease, unspecified Status: Chronic (4) History of prostate cancer Code(s): Z85.46 - Personal history of malignant neoplasm of prostate Status: Chronic (5) History of hypertension Code(s): Z86.79 - Personal history of other diseases of the circulatory system Status: Chronic - Assessment and Plan Plan: ASSESSMENT: Acute hypoxemic hypercarbic/hypoxemic respiratory failure Respiratory arrest after receiving Ativan on 10/05/2018 Hypotension now resolved Lumbar cord compression likely secondary to large herniated disc, with lower extremity weakness Right L2/L3 discectomy 10/04/2018 for removal residual disc at right L2/3 s/p L2-5 revision fusion and left L2/3 discectomy on 10/02/18. Hypotension on pressors History of previous lumbar posterior fusion and microdiscectomy by Dr. Hansen Acute on chronic kidney disease Anemia requiring transfusion History of prostate cancer COPD History of hypertension PLAN: NEURO: -MRI showing large herniated disc at L2/3 and flex/ex showing instability at this level. -s/p L2-5 revision fusion and left L2/3 discectomy on 10/02/18. -post-op MRI with significant disc herniation at right L2/3 despite resection, Right L2/L3 discectomy 10/04/2018 - Lumbar drain in place for CSF leak. Neurosurgery planning OR for 10/14 -Spine precautions -Currently sedated with Versed/ propofol and fentanyl. -Start Precedex to facilitate vent weaning, add Seroquel 50 twice daily -Neurosurgery Dr. Peter. Dr. Hansen following now -Ketty guzmann, to take p.o. atypical antipsychotic Seroquel -Lumbar drain in place to allow CSF leak to stop RESP: -Extubated 10/05/18 however became unresponsive and hypoxic after receiving Ativan for agitation -Emergently reintubated and placed on mechanical ventilation -Currently on PRVC/AC -DuoNeb every 6 hours scheduled and as needed -Tapered off solumedrol. -Aggressive pulmonary toilet -f/u sputum culture, continue empiric cefepime -Extubated again 10/07 -Required reintubation 5 hours after extubation due to secretions and hypoxemia. Situation made worse by underlying agitation. -Tracheostomy performed 10/08 -Continue spontaneous breathing trials. -Hold diuretics for a few days. CV: -Cardiac decompensation most likely secondary to pulmonary problems, hypoxemia -Gas exchange improving GI: - IV famotidine. Continue tube feeds -Bowel regimen : -Monitor renal function closely. -IV hydration will be discontinued and IV Lasix as above -Discontinue [place] for hourly intake output, monitor creatinine closely -Resolving azotemia ID: -Sputum culture, continue cefepime 2 g IV every 12 hours HEME: -Transfused 1 unit PRBC -Monitor CBC, coags ENDO: -Electrolyte replacement per protocol PROPH: -Bilateral lower extremity SCDs. No chemical DVT prophylaxis due to spinal surgery/continue famotidine LINES: -Utilize peripheral IVs, central line as needed -PT evaluate and treat All impression: Patient remains critically ill and ventilator dependent and we have been unable to keep him extubated for more than a few hours. His baseline mental status was quite good prior to this and so far the family has requested ongoing aggressive care. We will continue to try to clean up his lungs and encourage ventilator weaning. Lumbar drain in place, hold transfer to LTAC for now. It seems the gentleman either has pleural effusions or renal failure depending how successfully we have diuresed him. He remains unstable and will likely be a long-term vent weaning problem. Critical care time 35 minutes aside from procedures.
[2018-10-14] MEDS: Oral Hygiene Kit OROPHARYNG SCH ×4 (00:55→16:00)
[2018-10-14] MEDS: Propofol 1000 mg/100 ml Inj 1,000 MG/100 ML BOTTLE IV.CONT PRN ×5 (03:50→23:26)
[2018-10-14 05:29] LABS: Baso % (Auto) 0.2 % (0.0-2.0); Eos # (Auto) 0.6 th/mm3 (0.0-0.4); Eos % (Auto) 5.1 % (0.0-4.0); Hemoglobin 8.1 gm/dL (13.0-17.0); Lymph # (Auto) 0.8 th/mm3 (1.0-4.8); Lymph % (Auto) 6.7 % (9.0-44.0); Mean Corpuscular HGB Conc 32.5 % (32.0-36.0); Mean Corpuscular Hemoglobin 28.5 pg (27.0-34.0); Mean Corpuscular Volume 87.8 fL (80.0-100.0); Mono # (Auto) 0.9 th/mm3 (0.0-0.9); Mono % (Auto) 7.8 % (0.0-8.0); Neut # (Auto) 9.7 th/mm3 (1.8-7.7); Neut % (Auto) 80.2 % (16.0-70.0); Platelet Count 194 th/mm3 (150-450); Red Blood Count 2.85 mil/mm3 (4.50-5.90); Red Cell Distribution Width 20.7 % (11.6-17.2); White Blood Count 12.1 th/mm3 (4.0-11.0)
[2018-10-14 05:58] LABS: Albumin 1.5 g/dL (3.4-5.0); Anion Gap 8 meq/L (5-15); Aspartate Aminotransferase 28 U/L (15-37); Blood Urea Nitrogen 58 mg/dL (7-18); Calcium 8.8 mg/dL (8.5-10.1); Carbon Dioxide 24.7 meq/L (21.0-32.0); Chloride 113 meq/L (98-107); Glomerular Filtration Rate 52 mL/min (>89); Glucose,Random 89 mg/dL (74-106); Potassium 4.3 meq/L (3.5-5.1); Sodium 146 meq/L (136-145)
[2018-10-14 05:59] LABS: Alanine Aminotransferase 22 U/L (12-78)
[2018-10-14 06:01] LABS: Alkaline Phosphatase 99 U/L (45-117); Total Protein 5.4 g/dL (6.4-8.2)
[2018-10-14] MEDS: QUEtiapine 25 MG Tablet PO SCH ×2 (09:15→21:40)
[2018-10-14] MEDS: Divalproex 125 MG Sprinkles Capsule PO SCH ×2 (09:15→21:39)
[2018-10-14] MEDS: Chlorhexidine 0.12% Oral Kit 15 ML UDC OROPHARYNG SCH ×2 (09:15→19:59)
[2018-10-14] MEDS: Senna/Docusate Sodium 8.6/50 MG Tablet PO SCH ×2 (09:15→21:40)
[2018-10-14] MEDS: Famotidine PF Inj 20 MG/2 ML Vial IV.PUSH SCH ×2 (09:16→21:40)
[2018-10-14] MEDS: Sodium Chloride 0.9% 2 ML Flush BID IV.FLUSH SCH ×2 (09:16→21:39)
--- NOTE | 2018-10-14 09:41 | P.PNNS ---
Subjective Interval history: Some drainage from back wound, less so but some wound opening. D/w daughter [phone], will take to OR today to explore and debride wound and repair any residual CSF leak if present. Physical Exam Vital signs: Vital Signs 10/13/18 10:00 10/13/18 11:00 10/13/18 11:21 Temperature Pulse Rate 76 77 Respiratory Rate 13 11 L 12 Pulse Oximetry 100 99 100 10/13/18 12:00 10/13/18 13:00 10/13/18 14:00 Temperature 98.8 F Pulse Rate 74 71 72 Respiratory Rate 10 L 11 L 11 L Pulse Oximetry 100 96 99 10/13/18 15:00 10/13/18 15:40 10/13/18 16:00 Temperature 98.6 F Pulse Rate 72 71 Respiratory Rate 10 L 12 11 L Pulse Oximetry 99 99 99 10/13/18 17:00 10/13/18 18:00 10/13/18 19:00 Temperature Pulse Rate 75 73 74 Respiratory Rate 13 11 L 12 Pulse Oximetry 98 99 99 10/13/18 19:19 10/13/18 20:00 10/13/18 21:00 Temperature 98.4 F Pulse Rate 77 77 Respiratory Rate 10 L 12 13 Pulse Oximetry 99 99 99 10/13/18 22:00 10/13/18 22:16 10/13/18 23:00 Temperature Pulse Rate 74 70 Respiratory Rate 12 15 14 Pulse Oximetry 99 99 100 10/14/18 00:00 10/14/18 01:00 10/14/18 01:18 Temperature 98.3 F Pulse Rate 73 71 Respiratory Rate 13 15 14 Pulse Oximetry 100 99 100 10/14/18 02:00 10/14/18 03:00 10/14/18 03:53 Temperature 98.4 F Pulse Rate 72 93 H Respiratory Rate 14 16 17 Pulse Oximetry 99 100 98 10/14/18 04:00 10/14/18 05:00 10/14/18 06:00 Temperature 98.4 F Pulse Rate 77 78 89 Respiratory Rate 14 13 22 Pulse Oximetry 99 99 99 10/14/18 07:00 10/14/18 07:11 10/14/18 08:00 Temperature 99.3 F Pulse Rate 74 72 Respiratory Rate 14 12 12 Pulse Oximetry 99 99 100 11/21/18 09:00 Temperature Pulse Rate 74 Respiratory Rate 13 Pulse Oximetry 99 Intake & Output 10/13/18 10/14/18 10/14/18 18:59 06:59 18:59 Intake Total 2250 / 2250 2820 / 2820 1100 / 1100 Output Total 935 / 935 180 / 180 Balance 1315 / 1315 2640 / 2640 1100 / 1100 Weight 93.3 kg Intake: IV 1500 / 1500 1550 / 1550 1100 / 1100 LR 1000 mL Inj 1,000 ML @ 100 1000 / 1000 1000 / 1000 1000 / 1000 mls/hr IV.CONT .Q10H [facility] Rx#: [id number] Versed Inj 100 mg In 100 ml @ 2 100 / 100 MG/HR 2 mls/hr IV.CONT TITRATE PRN Rx#:[id number] Diprivan 1000 mg/100 ml Inj 1, 300 / 300 200 / 200 100 / 100 000 mg In 100 ml @ 5 MCG/KG/MIN 2.835 mls/hr IV.CONT TITRATE PRN Rx#:[id number] Maxipime Inj 2,000 MG In NS Inj 100 / 100 100 / 100 100 ML @ 200 mls/hr IV.SIG Q12H [facility] Rx#:[id number] fentaNYL 10 mcg/mL Premix Drip 250 / 250 2,500 mcg In 250 ml @ 50 MCG/HR 5 mls/hr IV.SIG TITRATE PRN Rx #:[id number] Oral 0 / 0 Tube Feeding 510 / 510 350 / 350 Tube Irrigant 120 / 120 Water Bolus Amount 240 / 240 Anesthesia Amount 800 / 800 Output: Stool 0 / 0 0 / 0 Urine Amount (Catheter) 750 / 750 Indwelling Urethral Catheter 750 / 750 Gastric Drainage 0 / 0 0 / 0 Right Nare Nasogastric Tube 0 / 0 0 / 0 Wound Drainage 185 / 185 180 / 180 Posterior Lumbar 185 / 185 180 / 180 Other: Date of Last Bowel Movement 10/10/18 10/10/18 # Bowel Movements 0 0 Narrative: lumbar wound dehisced with dark red CSF drainage, Optifoam dressing replaced. Shaking head back and forth when sedation lightened. Gets agitated, not moving arms or legs - Urinary Catheter Management Indwelling Urethral Catheter Cath placed during this visit: yes Reason for continuing: Hourly intake/output Insertion date: 10/02/18 Insertion time: 20:32 Assessment and Plan - Plan 73yoM po (10/02/18) L2-5 revision fusion and left L2/3 discectomy hold tube feeds tonight OR today for lumbar debridement, repair, will likely keep existing drain in.
--- NOTE | 2018-10-14 10:10 | P.PNCC ---
Subjective Subjective Remarks/Hospital Course: Patient is a 73-year-old male with past medical history significant for hypertension, COPD, Prostate carcinoma, history of previous lumbar laminectomy who came to the [place] emergency department as a transfer from transfer from [facility]. He was accepted by neurosurgery Dr. Peter for acute onset bilateral lower extremity weakness. Patient states that he woke up this morning around 6 AM with numbness and weakness of bilateral lower extremity. On attempt to walk he fell on his face due to weakness. Patient states that the strength got slight better since then. CT scan of the lumbar spine large area of soft attenuation attenuation in the ventral epidural space L2-L3 level suspicious for large disc extrusion with spinal canal stenosis with differential diagnosis involving hemorrhage, there is also at least moderate bilateral neural foraminal stenosis. I evaluate the patient in the ED. He complains of weakness more on the left leg which he is unable to lift. There is generalized numbness but he is able to feel my touch. Critical care was requested to admit the patient to the ICU. Discussed with Dr. Mittal ED and Dr. Peter neurosurgery. A stat MRI of the lumbar spine had been ordered. 10/03: Remains intubated sedated. Remains on Levophed at 10 mcg/min to maintain map above 70. Patient is s/p L2 to L5 posterior spinal fusion, Left L2 /3 microdiscectomy. (MRI showed large herniated disc at L2/3 and flex/ex showing instability at this level). On sedation hold patient is moving all 4 extremities. Hb 8.3 will transfuse 1 unit PRBC due to hypotension 10/04: Remains intubated sedated remains on 8 mcg/min of Levophed to maintain map above 75. Transfusing 1 unit PRBC for hemoglobin 7.4. post-op MRI with significant disc herniation at L2/3. Scheduled for surgery today with Dr. Peter 10/05: Patient underwent surgery on 10/04/2018 for removal residual disc at L2/ 3 right side based on post-op MRI. (s/p L2-5 revision fusion and left L2/3 discectomy on 10/02/18). Today patient's hypoxemia had improved, he was awake but on lightening sedation was very agitated so after a short CPAP trial patient was extubated. Shortly after extubation patient became very agitated requiring four-point restraints and physically nurses having to restrain him. 2 mg IV Ativan was given following which patient became partially responsive with obstructive airway sounds. Shortly became hypoxemic desaturated, became bradycardic in 40s and systolic blood pressure does drop to mid 40s. I was emergently called to the bedside I started bag and mask ventilation immediately. Half ampule of epinephrine was post IV. His heart rate in systolic blood pressure improved with bag and mask ventilation and epinephrine push however he remained unresponsive. Emergently intubated and placed on mechanical ventilation. Once more responsive will start on sedation with Versed. Start Levophed to maintain map above 65. Postintubation chest x-ray is pending. 10/06: Remains intubated heavily sedated for vent synchrony. Patient gets very agitated on holding sedation. We will start Precedex to facilitate vent weaning. Hemoglobin is 7.1, 1 unit of PRBC followed by IV Lasix ordered. 10/07: Agitated. TVs > 1.0 liter spontaneous. Extubated. Patient required reintubation about 5 hours later due to hypoxemia. 10/08: Intubated for the third time last evening. He is unable to tolerate extubation due to a combination of underlying lung disease and severe agitation. If the family wishes to proceed he will require tracheostomy for safe weaning from the ventilator. His baseline mental status is apparently pretty close to normal. 10/09: Tracheostomy placed yesterday. Large amounts of white thick secretions encountered. Chest x-ray continues with a pattern of pulmonary edema. We will continue aggressive twice daily diuretic therapy. Ostensibly plan is to transfer to [facility] at the beginning of next week. One family member is not on board with that yet however. 10/10: Lumbar drain has been placed. Continue spontaneous breathing trials through tracheostomy. Continue discussions with family about transfer to LTAC for long-term weaning. No evidence of infection. 10/11: Effective diuresis but now developing a mild prerenal azotemia. Will hold off for a while and gently hydrate. Now the tracheostomy is performed there is not quite urgency to desiccate his lungs. Hopefully we can work toward a cyst transferred to [facility] after lumbar drain discontinued. 10/12: Following tracheostomy we will continue with attempts at ventilator weaning. Patient has a lumbar drain in place in an attempt to stop a lumbar region wound CSF leak. [facility] will take this patient for long-term weaning once lumbar drain is out. Gentle hydration continues until such time as prerenal azotemia is attenuated. Continue enteral nutrition. 10/13: Remains on mechanical ventilation via tracheostomy. Still on significant sedation due to agitation issues. Lumbar drain continues to drain. Possible surgery tomorrow. 10/14: Remains sedated, on mechanical ventilation via tracheostomy. Scheduled for surgery today for CSF leak lumbar region. Objective Vital Signs / I&O: Vital Signs 10/13/18 11:00 10/13/18 11:21 10/13/18 12:00 Temperature 98.8 F Pulse Rate 77 74 Respiratory Rate 11 L 12 10 L Pulse Oximetry 99 100 100 10/13/18 13:00 10/13/18 14:00 10/13/18 15:00 Temperature Pulse Rate 71 72 72 Respiratory Rate 11 L 11 L 10 L Pulse Oximetry 96 99 99 10/13/18 15:40 10/13/18 16:00 10/13/18 17:00 Temperature 98.6 F Pulse Rate 71 75 Respiratory Rate 12 11 L 13 Pulse Oximetry 99 99 98 10/13/18 18:00 10/13/18 19:00 10/13/18 19:19 Temperature Pulse Rate 73 74 Respiratory Rate 11 L 12 10 L Pulse Oximetry 99 99 99 10/13/18 20:00 10/13/18 21:00 10/13/18 22:00 Temperature 98.4 F Pulse Rate 77 77 74 Respiratory Rate 12 13 12 Pulse Oximetry 99 99 99 10/13/18 22:16 10/13/18 23:00 10/14/18 00:00 Temperature 98.3 F Pulse Rate 70 73 Respiratory Rate 15 14 13 Pulse Oximetry 99 100 100 10/14/18 01:00 10/14/18 01:18 10/14/18 02:00 Temperature Pulse Rate 71 72 Respiratory Rate 15 14 14 Pulse Oximetry 99 100 99 10/14/18 03:00 10/14/18 03:53 10/14/18 04:00 Temperature 98.4 F 98.4 F Pulse Rate 93 H 77 Respiratory Rate 16 17 14 Pulse Oximetry 100 98 99 10/14/18 05:00 10/14/18 06:00 10/14/18 07:00 Temperature Pulse Rate 78 89 74 Respiratory Rate 13 22 14 Pulse Oximetry 99 99 99 10/14/18 07:11 10/14/18 08:00 10/14/18 09:00 Temperature 99.3 F Pulse Rate 72 74 Respiratory Rate 12 12 13 Pulse Oximetry 99 100 99 Intake & Output 10/13/18 10/14/18 10/14/18 18:59 06:59 18:59 Intake Total 2250 / 2250 2820 / 2820 1100 / 1100 Output Total 935 / 935 180 / 180 Balance 1315 / 1315 2640 / 2640 1100 / 1100 Weight 93.3 kg Intake: IV 1500 / 1500 1550 / 1550 1100 / 1100 LR 1000 mL Inj 1,000 ML @ 100 1000 / 1000 1000 / 1000 1000 / 1000 mls/hr IV.CONT .Q10H ERIKA Rx#: [id number] Versed Inj 100 mg In 100 ml @ 2 100 / 100 MG/HR 2 mls/hr IV.CONT TITRATE PRN Rx#:[id number] Diprivan 1000 mg/100 ml Inj 1, 300 / 300 200 / 200 100 / 100 000 mg In 100 ml @ 5 MCG/KG/MIN 2.835 mls/hr IV.CONT TITRATE PRN Rx#:[id number] Maxipime Inj 2,000 MG In NS Inj 100 / 100 100 / 100 100 ML @ 200 mls/hr IV.SIG Q12H [facility] Rx#:[id number] fentaNYL 10 mcg/mL Premix Drip 250 / 250 2,500 mcg In 250 ml @ 50 MCG/HR 5 mls/hr IV.SIG TITRATE PRN Rx #:[id number] Oral 0 / 0 Tube Feeding 510 / 510 350 / 350 Tube Irrigant 120 / 120 Water Bolus Amount 240 / 240 Anesthesia Amount 800 / 800 Output: Stool 0 / 0 0 / 0 Urine Amount (Catheter) 750 / 750 Indwelling Urethral Catheter 750 / 750 Gastric Drainage 0 / 0 0 / 0 Right Nare Nasogastric Tube 0 / 0 0 / 0 Wound Drainage 185 / 185 180 / 180 Posterior Lumbar 185 / 185 180 / 180 Other: Date of Last Bowel Movement 10/10/18 10/10/18 # Bowel Movements 0 0 Result Diagrams: 10/14/18 05:15 10/14/18 05:15 Objective Remarks: GENERAL: Elderly gentleman, lightly sedated for vent synchrony, ongoing vent weaning. SKIN: warm/dry. HEAD: Normocephalic. Atraumatic EYES: No injection or drainage. No conjunctival icterus or injection ENT: tracheostomy in place, site clean and dry NECK: Tracheostomy in place CARDIOVASCULAR: S1-S2 normal, no murmurs. Neck veins are full, not tensely distended. RESPIRATORY: Air entry equal bilaterally, few scattered rhonchi, no wheezes. Plentiful mobile secretions. GASTROINTESTINAL: Abdomen soft, non-tender, nondistended. Bowel sounds are active. No guarding. MUSCULOSKELETAL: No cyanosis, or edema. Warm, well-perfused. NEURO: Intubated via tracheostomy, lightly sedated for vent synchrony. Tolerate spontaneous breathing trials. Moves all 4 limbs to stimulation. Episodically quite agitated. Of note, patient was perfectly well oriented and cooperative on admission. 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 Code(s): M47.16 - Other spondylosis with myelopathy, lumbar region Status: Acute (2) Weakness of lower extremity Code(s): R29.898 - Other symptoms and signs involving the musculoskeletal system Status: Acute (3) COPD (chronic obstructive pulmonary disease) Code(s): J44.9 - Chronic obstructive pulmonary disease, unspecified Status: Chronic (4) History of prostate cancer Code(s): Z85.46 - Personal history of malignant neoplasm of prostate Status: Chronic (5) History of hypertension Code(s): Z86.79 - Personal history of other diseases of the circulatory system Status: Chronic - Assessment and Plan Plan: ASSESSMENT: Acute hypoxemic hypercarbic/hypoxemic respiratory failure Respiratory arrest after receiving Ativan on 10/05/2018 Hypotension now resolved Lumbar cord compression likely secondary to large herniated disc, with lower extremity weakness Right L2/L3 discectomy 10/04/2018 for removal residual disc at right L2/3 s/p L2-5 revision fusion and left L2/3 discectomy on 10/02/18. Hypotension on pressors History of previous lumbar posterior fusion and microdiscectomy by Dr. Hansen Acute on chronic kidney disease Anemia requiring transfusion History of prostate cancer COPD History of hypertension PLAN: NEURO: -MRI showing large herniated disc at L2/3 and flex/ex showing instability at this level. -s/p L2-5 revision fusion and left L2/3 discectomy on 10/02/18. -post-op MRI with significant disc herniation at right L2/3 despite resection, Right L2/L3 discectomy 10/04/2018 - Lumbar drain in place for CSF leak. Neurosurgery planning OR for 10/14 -Spine precautions -Currently sedated with Versed/ propofol and fentanyl. -Start Precedex to facilitate vent weaning, add Seroquel 50 twice daily -Neurosurgery Dr. Peter. Dr. Hansen following now -Ketty prn, to take p.o. atypical antipsychotic Seroquel -Lumbar drain in place to allow CSF leak to stop RESP: -Extubated 10/05/18 however became unresponsive and hypoxic after receiving Ativan for agitation -Emergently reintubated and placed on mechanical ventilation -Currently on PRVC/AC -DuoNeb every 6 hours scheduled and as needed -Tapered off solumedrol. -Aggressive pulmonary toilet -f/u sputum culture, continue empiric cefepime -Extubated again 10/07 -Required reintubation 5 hours after extubation due to secretions and hypoxemia. Situation made worse by underlying agitation. -Tracheostomy performed 10/08 -Continue spontaneous breathing trials. -Hold diuretics for a few days. CV: -Cardiac decompensation most likely secondary to pulmonary problems, hypoxemia -Gas exchange improving GI: - IV famotidine. Continue tube feeds -Bowel regimen : -Monitor renal function closely. -IV hydration will be discontinued and IV Lasix as above -Discontinue Sutherland for hourly intake output, monitor creatinine closely -Resolving azotemia ID: -Sputum culture, continue cefepime 2 g IV every 12 hours HEME: -Transfused 1 unit PRBC -Monitor CBC, coags ENDO: -Electrolyte replacement per protocol PROPH: -Bilateral lower extremity SCDs. No chemical DVT prophylaxis due to spinal surgery/continue famotidine LINES: -Utilize peripheral IVs, central line as needed -PT evaluate and treat All impression: Patient remains critically ill and ventilator dependent and we have been unable to keep him extubated for more than a few hours. His baseline mental status was quite good prior to this and so far the family has requested ongoing aggressive care. We will continue to try to clean up his lungs and encourage ventilator weaning. Lumbar drain in place, hold transfer to LTAC for now. It seems the gentleman either has pleural effusions or renal failure depending how successfully we have diuresed him. He remains unstable and will likely be a long-term vent weaning problem. Critical care time 35 minutes aside from procedures.
[2018-10-14] MEDS ORDERED: Bupivacaine/Epinephrine PF Inj 0.5% 30 ML Vial ONE (11:01)
[2018-10-14] MEDS ORDERED: Lidocaine 1% Inj 50 ML Vial ONE (11:01)
[2018-10-14] MEDS ORDERED: Thrombin Topical Soln 5,000 UNIT Vial TOPICAL ONE (11:01)
[2018-10-14] MEDS ORDERED: Gelatin Size 100 Topical Foam ONE (11:01)
--- NOTE | 2018-10-14 11:27 | P.NPEVAL ---
Patient History - Record/History Review Reason for Referral: The patient is a 73 year old unknown handed man who was admitted to [facility] on 10/02/2018 for acute bilateral lower extremity eakness. Spinal CT showed large disc extrusion with spinal canal stenosis at L2-L3. Since admission he has been agitated intermittently managed on Seroquel Ativan and Versed with a PRN Geodon. He is referred for baseline neurobehavioral status examination to assess cognitive, behavioral and emotional aspects of the injury and to provide treatment recommendations. [facility] - History History Provided By: Patient - Medical History Medical History: Medical History (Last Reviewed 10/09/18 @ 07:38 by Maribel Ford) Back pain Colonic polyp GERD (gastroesophageal reflux disease) Hypertension Neuropathy Osteoarthritis Prostate carcinoma - Surgical History Surgical History: Surgical History (Last Reviewed 10/09/18 @ 07:38 by Maribel Ford) Hx of endarterectomy - Tobacco History Second Hand Smoke Exposure: Yes Tobacco Use In Past 30 Days: Yes Smoking Status: Smoker, status unknown Tobacco Type: Cigarettes - Alcohol History How Often Do You Have a Drink Containing Alcohol: Unable to Obtain - Substance Use History Substance History: No History of Abuse - Travel History Recent Travel in the [place] Within the Last 8 Weeks: No Recent Travel Out of the Country Within the Last 8 Weeks: No - Immunization History Tetanus Immunization: Unsure Medications Active Medications Acetaminophen (Tylenol) 650 mg PO Q6H PRN PRN Reason: PAIN 1-10 AND/OR FEVER >101F Al Hydroxide/Mg Hydroxide (Milk Of Magnbecca Liq) 30 ml PO Q12H PRN PRN Reason: Mild Constipation Last Admin: 10/13/18 08:22 Dose: 30 ml Albuterol (Albuterol Neb (Prn)) 2.5 mg NEB Q2HR NEB PRN PRN Reason: SHORTNESS OF BREATH/WHEEZING Albuterol (Duoneb Neb (Prn)) 1 ampul NEB Q2HR NEB PRN PRN Reason: SHORTNESS OF BREATH Bisacodyl (Dulcolax Supp) 10 mg RECTAL DAILY PRN PRN Reason: SEVERE CONSITIPATION Last Admin: 10/09/18 08:54 Dose: 10 mg Chlorhexidine Gluconate (Peridex 0.12% Oral Kit) 15 ml OROPHARYNG BID@0800, 2000 ERIKA Last Admin: 10/14/18 09:15 Dose: 15 ml Divalproex Sodium (Depakote Sprinkles) 500 mg PO BID [facility] Last Admin: 10/14/18 09:15 Dose: 500 mg Famotidine (Pepcid Pf Inj) 10 mg IV.PUSH Q12HR [facility] Last Admin: 10/14/18 09:16 Dose: 10 mg Furosemide (Lasix Inj) 40 mg IV.PUSH BID@0900,1800 [facility] Last Admin: 10/11/18 08:53 Dose: 40 mg Hydralazine HCl (Apresoline Inj) 20 mg IV.PUSH Q2H PRN PRN Reason: SBP > 160 Last Admin: 10/12/18 04:57 Dose: 20 mg Fentanyl (Fentanyl 10 Mcg/Ml Premix Drip) 2,500 mcg in 250 mls @ 5 mls/hr IV.SIG TITRATE PRN; Protocol PRN Reason: Per Protocol Last Admin: 10/13/18 20:41 Dose: 150 mcg/hr, 15 mls/hr Norepinephrine Bitartrate (Levophed-Dextrose 4 Mg/250 Ml Drip) 4 mg in 250 mls @ 7.5 mls/hr IV.SIG TITRATE PRN; Protocol PRN Reason: Per Protocol Last Titration: 10/11/18 07:00 Dose: 0 mcg/min, 0 mls/hr Dexmedetomidine HCl 200 mcg/ (Sodium Chloride) 50 mls @ 4.58 mls/hr IV.CONT TITRATE PRN; Protocol PRN Reason: Per Protocol Last Titration: 10/07/18 06:15 Dose: 0 mcg/kg/hr, 0 mls/hr Propofol (Diprivan 1000 Mg/100 Ml Inj) 1,000 mg in 100 mls @ 2.835 mls/hr IV.CONT TITRATE PRN; Protocol PRN Reason: Per Protocol Last Admin: 10/14/18 07:46 Dose: 40 mcg/kg/min, 22.68 mls/hr Cefepime HCl 2,000 mg/ Sodium (Chloride) 100 mls @ 200 mls/hr IV.SIG Q12H [facility] Last Admin: 10/14/18 09:16 Dose: 200 mls/hr Midazolam HCl (Versed Inj) 100 mg in 100 mls @ 2 mls/hr IV.CONT TITRATE PRN; Protocol PRN Reason: PER PROTOCOL Last Titration: 10/13/18 09:30 Dose: 2 mg/hr, 2 mls/hr Lactated Ringer's (Lr 1000 Ml Inj) 1,000 mls @ 100 mls/hr IV.CONT .Q10H [facility] Last Admin: 10/14/18 07:31 Dose: 100 mls/hr Lactulose (Lactulose Liq) 30 ml PO DAILY PRN PRN Reason: SEVERE CONSITIPATION Last Admin: 10/09/18 09:32 Dose: 30 ml Lorazepam (Ativan Inj) 0.5 mg IV.PUSH Q6H PRN PRN Reason: SEVERE AGITATION Last Admin: 10/09/18 09:32 Dose: 0.5 mg Miscellaneous Medication () 1 each OROPHARYNG 0000,0400,1200,1600 [facility] Last Admin: 10/14/18 03:51 Dose: 1 each Morphine Sulfate (Morphine Inj) 2 mg IV.PUSH Q4H PRN PRN Reason: 6-10 pain Last Admin: 10/07/18 21:47 Dose: 2 mg Quetiapine Fumarate (Seroquel) 50 mg PO BID [facility] Last Admin: 10/14/18 09:15 Dose: 50 mg Senna/Docusate Sodium (Shazia-Colace) 1 tab PO BID [facility] Last Admin: 10/14/18 09:15 Dose: 1 tab Sennosides (Senokot) 17.2 mg PO Q12H PRN PRN Reason: Moderate Constipation Sodium Chloride (Ns Flush) 2 ml IV.FLUSH BID [facility] Last Admin: 10/14/18 09:16 Dose: 2 ml Sodium Chloride (Ns Flush) 2 ml IV.FLUSH PRN PRN PRN Reason: FLUSH AFTER USING IV ACCESS Terbutaline Sulfate (Brethine Inj) 1 mg SQ UNSCH PRN PRN Reason: For Extravasation Ziprasidone (Geodon Inj) 20 mg IM Q12H PRN PRN Reason: SEVERE AGITATION Last Admin: 10/08/18 07:53 Dose: 20 mg Mental Status Assessment - Mental Status Orientation: oriented to: Self, disoriented to: Place, Time, Situation Mental Status: Variable: Language/interactions, Impaired: Thought processing Absent: Hallucinations, Delusions Adjustment/Coping Assessment - Adjustment/Coping Adjustment/Coping: Moderate: Awareness, Insight - Observation In terms of emotional functioning, the patient demonstrated challenges. This patient demonstrated no signs of agitation, impulsivity or disinhibition, nor was there remarkable evidence of a formal thought disorder or psychosis during the brief time spent with the patient. There was no evidence of depression or anxiety. Thought content appeared free from suicidal, homicidal or paranoid ideation, and thought processes were blunted. The patient appears to possess poor insight and awareness into their situation and within the limits of this brief evaluation, poor judgment. - Goals/Team Members LTG Status: Deferred STG Status: Deferred Team Members: Neuropsychologist Behavior - Behavior Treatment Engagement: Minimal - Observation Behaviorally, the patient demonstrated no signs of agitation, impulsivity or disinhibition for this brief exam, but he is noted to be quite agitated at times. There was no remarkable evidence of a formal thought disorder or psychosis. - Goals LTG Status: Deferred STG Status: Deferred - Team Members Team Members: Neuropsychologist Diagnosis/Discharge Plan - Diagnosis (1) Major neurocognitive disorder due to another medical condition with behavioral disturbance Status: Acute Impression: 73 year old male with neurocognitive and neurobehavioral issues, possibly ICU delirium. Disinhibition Score: 17.50 Aggression Score: 14.00 Lability Score: 14.00 Agitated Behavior Total Score: 16 Maximizing Acute Care Outcome: It is recommended that the patient be monitored for emergent behavioral impulsivity as the medical condition evolves. This patients neuropathological challenges may limit rehabilitation potential going forward, and these challenges will require specialized therapeutic skills to maximize outcome. At this point in the recovery process, the patient does not have cognitive capacity as the patient is unable to understand a situation and its likely consequences, nor is the patient able to manipulate information rationally. Cognitive capacity will be assessed throughout the recovery process. - Discharge Planning Anticipated Problems: Ongoing areas of concern will include behavioral impulsivity, lack of insight and judgment, which is expected to improve with time and treatment. Suggest continued treatment with current pharmacological approach, unless medically contraindicated. His recent ABS scores reflect improvement as such in terms of his neurobehavioral issues. Treatment Plan: This clinician will continue to follow with you throughout the course of this patients critical care treatment, and I will be available to meet with the patients family/support system to facilitate their understanding and the ongoing care of their family member. The goals of neuropsychological intervention shall be both educational and supportive to the family/support system as is deemed clinically appropriate. Thank you for the opportunity to assist in this patients care. Michael Iraheta, Ph.D., ABPP Board Certified in Clinical Neuropsychology [employer] [employer] [place] Licensed Psychologist #[id number]
--- NOTE | 2018-10-14 14:45 | P.OP ---
- Preoperative Diagnosis (1) Postoperative CSF leak - Postoperative Diagnosis (1) Postoperative CSF leak Date of procedure: 10/14/18 Procedure: Lumbar wound debridement Repepair of CSF leak Left L2/3 with patch Anesthesia: MOA Surgeon: Eloy Peter MD Operation and Findings: Indications: 73yoM who underwent urgent discectomy at L2/3 with extension of fusion on and revision on 10/04/18 due to residual disc. At the initial surgery, he was noted to have a ventral CSF leak left L2/3 anteriorly. This was treated with a muscle patch and Tisseal. At the second surgery, no CSF was noted from the left side, but a more Tisseal was placed in the right L2/3 entry point. Over the past several days, drainage has been noted from his back, and a lumbar drain was placed on 10/09 which has slowed his drainage but not stopped. Rexploration with wound debridement is indicated. Description of procedure: Patient was brought to main OR. He had previously been trached and the procedure was done under general in the prone position with all pressure points padded. Midlumbar spine was prepped in the usual sterile fashion, taking care to keep the drain prepped and in field. Midlumbar incision was opened and old sutures removed. Cultures were taken. Incision actually looked healthy inferiorly. Superiorly, the incision was opened down to L2/3 interval and old sutures removed. Cultures taken of tissue from the epidural space. Repair was removed with no active leak despite Valsalva. Nevertheless, the culprit appeared left L2/3 ventral. After careful irrigation with antibiotic irrigation , duragen was placed over the exposed nerve roots on both sides, followed by a muscle patch on both sides, followed by Tisseal, followed by duragen again. The wound was carefully closed in several layers with 0-Vicryl for deep fascia, interrupted 2-0 Vicryl for supreficial fascia, and subcutaneous, vertical mattress and running Prolene for skin. Drain was carefully kept out of the way and the wound was irrigated with betadyne solution and vancomycin powder prior to closure. Sterile dressing applied. Patient returned supine, and brought to ICU ventilated. Dr. Peter present and scrubbed for the entire procedure.
[2018-10-14] MEDS ORDERED: fentaNYL Citrate Inj 100 MCG/2 ML Ampul ONE (14:52)
[2018-10-14] MEDS: fentaNYL 10 mcg/mL Premix Drip 2,500 MCG/250 ML BAG IV.SIG PRN (15:42)
[2018-10-14] MEDS: hydrALAZINE HCl Inj 20 MG/ML Vial IV.PUSH PRN (23:02)
[2018-10-15] MEDS: Oral Hygiene Kit OROPHARYNG SCH ×5 (00:15→23:34)
[2018-10-15] MEDS: Propofol 1000 mg/100 ml Inj 1,000 MG/100 ML BOTTLE IV.CONT PRN ×2 (03:21→06:43)
[2018-10-15] MEDS: fentaNYL 10 mcg/mL Premix Drip 2,500 MCG/250 ML BAG IV.SIG PRN (07:16)
--- NOTE | 2018-10-15 07:50 | P.PNNPSY ---
- Progress Notes/Response to Treatment Time with Patient: 30 minutes Premorbid Psychological Status: Premorbid Cognitive, Emotional and Behavioral Status: Stable. 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 The patient has no prior psychiatric difficulties, as described above. Substance abuse history is unremarkable. Behavioral Reactions of Patient and Family/Support System: Stable. The patient s family is experiencing ongoing issues of adjustment given the nature of the injury, and this aspect of recovery will require ongoing monitoring. Emotional/Behavioral Status of Patient and Family/Support System: Stable. Pertinent issues, if appropriate to this patients clinical care, are described in detail above. Maximizing Acute Care Outcome: It is recommended that the patient be monitored for emergent behavioral impulsivity as the medical condition evolves. This patients neuropathological challenges may limit rehabilitation potential going forward, and these challenges will require specialized therapeutic skills to maximize outcome. At this point in the recovery process, the patient does not have cognitive capacity as the patient is unable to understand a situation and its likely consequences, nor is the patient able to manipulate information rationally. Cognitive capacity will be assessed throughout the recovery process. Anticipated Problems: Ongoing areas of concern will include behavioral impulsivity, lack of insight and judgment, which is expected to improve with time and treatment. Suggest continued treatment with current pharmacological approach, unless medically contraindicated. His recent ABS scores reflect improvement as such in terms of his neurobehavioral issues. Treatment Plan: This clinician will continue to follow with you throughout the course of this patients critical care treatment, and I will be available to meet with the patients family/support system to facilitate their understanding and the ongoing care of their family member. The goals of neuropsychological intervention shall be both educational and supportive to the family/support system as is deemed clinically appropriate. Disinhibition Score: 17.50 Aggression Score: 14.00 Lability Score: 14.00 Agitated Behavior Total Score: 16 Impression: 73 year old male with neurocognitive and neurobehavioral issues, possibly ICU delirium. Progress Note Narrative: Day 13. The patient returns from neurosurgical procedure. No agitation/ restlessness noted. Still somewhat confused. Managed on Depakote, versed, ativan and Seroquel. ABS = 16 (17.5,14,14). I will follow. - Diagnosis (1) Major neurocognitive disorder due to another medical condition with behavioral disturbance Status: Acute
--- NOTE | 2018-10-15 08:14 | P.PNNS ---
Subjective Interval history: Vented. Lumbar drain >120cc. Dressing dry. Physical Exam Vital signs: Vital Signs 10/14/18 09:00 10/14/18 10:00 10/14/18 11:00 Temperature Pulse Rate 74 71 69 Respiratory Rate 13 11 L 11 L Blood Pressure Pulse Oximetry 99 99 99 10/14/18 11:50 10/14/18 12:17 10/14/18 12:32 Temperature 98.7 F Pulse Rate 69 Respiratory Rate Blood Pressure Pulse Oximetry 100 100 10/14/18 12:44 10/14/18 13:00 10/14/18 14:00 Temperature 97.3 F L 97.2 F L 96.3 F L Pulse Rate 76 79 81 Respiratory Rate Blood Pressure 160/71 H Pulse Oximetry 100 100 100 10/14/18 15:00 10/14/18 15:43 10/14/18 16:00 Temperature 98.7 F Pulse Rate 71 69 Respiratory Rate 0 L 14 14 Blood Pressure Pulse Oximetry 97 98 95 10/14/18 17:00 10/14/18 18:00 10/14/18 19:00 Temperature Pulse Rate 63 67 63 Respiratory Rate 14 15 14 Blood Pressure Pulse Oximetry 97 99 99 10/14/18 19:37 10/14/18 20:00 10/15/18 01:54 Temperature Pulse Rate 94 H Respiratory Rate 14 18 Blood Pressure Pulse Oximetry 99 97 10/15/18 04:20 10/15/18 07:28 Temperature Pulse Rate Respiratory Rate 16 13 Blood Pressure Pulse Oximetry 98 100 Intake & Output 10/14/18 10/15/18 10/15/18 18:59 06:59 18:59 Intake Total 1750 / 1750 1300 / 1300 Output Total 1420 / 1420 Balance 330 / 330 1300 / 1300 Intake: IV 1750 / 1750 1300 / 1300 LR 1000 mL Inj 1,000 ML @ 100 1200 / 1200 800 / 800 mls/hr IV.CONT .Q10H [facility] Rx#: [id number] Diprivan 1000 mg/100 ml Inj 1, 200 / 200 400 / 400 000 mg In 100 ml @ 5 MCG/KG/MIN 2.835 mls/hr IV.CONT TITRATE PRN Rx#:[id number] Maxipime Inj 2,000 MG In NS Inj 100 / 100 100 / 100 100 ML @ 200 mls/hr IV.SIG Q12H [facility] Rx#:[id number] fentaNYL 10 mcg/mL Premix Drip 250 / 250 2,500 mcg In 250 ml @ 50 MCG/HR 5 mls/hr IV.SIG TITRATE PRN Rx #:[id number] Output: Estimated Blood Loss 100 / 100 Urine Amount (Catheter) 1275 / 1275 Indwelling Urethral Catheter 1275 / 1275 Wound Drainage 45 / 45 Posterior Lumbar 45 / 45 Other: Date of Last Bowel Movement 10/10/18 10/10/18 # Bowel Movements 0 Narrative: Dressing dry. Lumbar drain in place. Shakes head back and forth, withdraws in uppers - Urinary Catheter Management Indwelling Urethral Catheter Cath placed during this visit: yes Reason for continuing: Hourly intake/output Insertion date: 10/02/18 Insertion time: 20:32 Assessment and Plan - Plan 73yoM po (10/02/18) L2-5 revision fusion and left L2/3 discectomy 10/15/18 pod#1 revision of lumbar wound. Keep Lumbar Drain at 5cm below EAC, goal 160/ 12 hours (or 120/8 hour shift).
[2018-10-15] MEDS: Divalproex 125 MG Sprinkles Capsule PO SCH ×2 (08:34→20:14)
[2018-10-15] MEDS: Senna/Docusate Sodium 8.6/50 MG Tablet PO SCH ×2 (08:35→20:15)
[2018-10-15] MEDS: Famotidine PF Inj 20 MG/2 ML Vial IV.PUSH SCH ×2 (08:35→20:14)
[2018-10-15] MEDS: QUEtiapine 25 MG Tablet PO SCH ×2 (08:35→20:15)
[2018-10-15 08:54] LABS: Hematocrit 23.9 % (39.0-51.0); Hemoglobin 7.8 gm/dL (13.0-17.0); Mean Corpuscular HGB Conc 32.8 % (32.0-36.0); Mean Corpuscular Hemoglobin 29.1 pg (27.0-34.0); Mean Corpuscular Volume 88.6 fL (80.0-100.0); Mean Platelet Volume 8.2 fL (7.0-11.0); Platelet Count 195 th/mm3 (150-450); Red Cell Distribution Width 20.2 % (11.6-17.2); White Blood Count 9.8 th/mm3 (4.0-11.0)
[2018-10-15 09:19] LABS: Calcium 8.7 mg/dL (8.5-10.1); Carbon Dioxide 24.7 meq/L (21.0-32.0); Potassium 4.6 meq/L (3.5-5.1)
[2018-10-15] MEDS: Chlorhexidine 0.12% Oral Kit 15 ML UDC OROPHARYNG SCH ×2 (09:29→19:44)
[2018-10-15] MEDS: hydrALAZINE HCl Inj 20 MG/ML Vial IV.PUSH PRN (10:31)
--- NOTE | 2018-10-15 10:38 | P.PNCC ---
Subjective Subjective Remarks/Hospital Course: Patient is a 73-year-old male with past medical history significant for hypertension, COPD, Prostate carcinoma, history of previous lumbar laminectomy who came to the [place] emergency department as a transfer from transfer from [facility]. He was accepted by neurosurgery Dr. Peter for acute onset bilateral lower extremity weakness. Patient states that he woke up this morning around 6 AM with numbness and weakness of bilateral lower extremity. On attempt to walk he fell on his face due to weakness. Patient states that the strength got slight better since then. CT scan of the lumbar spine large area of soft attenuation attenuation in the ventral epidural space L2-L3 level suspicious for large disc extrusion with spinal canal stenosis with differential diagnosis involving hemorrhage, there is also at least moderate bilateral neural foraminal stenosis. I evaluate the patient in the ED. He complains of weakness more on the left leg which he is unable to lift. There is generalized numbness but he is able to feel my touch. Critical care was requested to admit the patient to the ICU. Discussed with Dr. Mittal ED and Dr. Peter neurosurgery. A stat MRI of the lumbar spine had been ordered. 10/03: Remains intubated sedated. Remains on Levophed at 10 mcg/min to maintain map above 70. Patient is s/p L2 to L5 posterior spinal fusion, Left L2 /3 microdiscectomy. (MRI showed large herniated disc at L2/3 and flex/ex showing instability at this level). On sedation hold patient is moving all 4 extremities. Hb 8.3 will transfuse 1 unit PRBC due to hypotension 10/04: Remains intubated sedated remains on 8 mcg/min of Levophed to maintain map above 75. Transfusing 1 unit PRBC for hemoglobin 7.4. post-op MRI with significant disc herniation at L2/3. Scheduled for surgery today with Dr. Peter 10/05: Patient underwent surgery on 10/04/2018 for removal residual disc at L2/ 3 right side based on post-op MRI. (s/p L2-5 revision fusion and left L2/3 discectomy on 10/02/18). Today patient's hypoxemia had improved, he was awake but on lightening sedation was very agitated so after a short CPAP trial patient was extubated. Shortly after extubation patient became very agitated requiring four-point restraints and physically nurses having to restrain him. 2 mg IV Ativan was given following which patient became partially responsive with obstructive airway sounds. Shortly became hypoxemic desaturated, became bradycardic in 40s and systolic blood pressure does drop to mid 40s. I was emergently called to the bedside I started bag and mask ventilation immediately. Half ampule of epinephrine was post IV. His heart rate in systolic blood pressure improved with bag and mask ventilation and epinephrine push however he remained unresponsive. Emergently intubated and placed on mechanical ventilation. Once more responsive will start on sedation with Versed. Start Levophed to maintain map above 65. Postintubation chest x-ray is pending. 10/06: Remains intubated heavily sedated for vent synchrony. Patient gets very agitated on holding sedation. We will start Precedex to facilitate vent weaning. Hemoglobin is 7.1, 1 unit of PRBC followed by IV Lasix ordered. 10/07: Agitated. TVs > 1.0 liter spontaneous. Extubated. Patient required reintubation about 5 hours later due to hypoxemia. 10/08: Intubated for the third time last evening. He is unable to tolerate extubation due to a combination of underlying lung disease and severe agitation. If the family wishes to proceed he will require tracheostomy for safe weaning from the ventilator. His baseline mental status is apparently pretty close to normal. 10/09: Tracheostomy placed yesterday. Large amounts of white thick secretions encountered. Chest x-ray continues with a pattern of pulmonary edema. We will continue aggressive twice daily diuretic therapy. Ostensibly plan is to transfer to [facility] at the beginning of next week. One family member is not on board with that yet however. 10/10: Lumbar drain has been placed. Continue spontaneous breathing trials through tracheostomy. Continue discussions with family about transfer to LTAC for long-term weaning. No evidence of infection. 10/11: Effective diuresis but now developing a mild prerenal azotemia. Will hold off for a while and gently hydrate. Now the tracheostomy is performed there is not quite urgency to desiccate his lungs. Hopefully we can work toward a cyst transferred to [facility] after lumbar drain discontinued. 10/12: Following tracheostomy we will continue with attempts at ventilator weaning. Patient has a lumbar drain in place in an attempt to stop a lumbar region wound CSF leak. [facility] will take this patient for long-term weaning once lumbar drain is out. Gentle hydration continues until such time as prerenal azotemia is attenuated. Continue enteral nutrition. 10/13: Remains on mechanical ventilation via tracheostomy. Still on significant sedation due to agitation issues. Lumbar drain continues to drain. Possible surgery tomorrow. 10/14: Remains sedated, on mechanical ventilation via tracheostomy. Scheduled for surgery today for CSF leak lumbar region. 10/15: Remains sedated on mechanical ventilation via tracheostomy. Status post revision of lumbar wound on 10/14 by neurosurgery. Lumbar drain in place and drained 120 cc since yesterday. Objective Vital Signs / I&O: Vital Signs 10/14/18 11:00 10/14/18 11:50 10/14/18 12:17 Temperature 98.7 F Pulse Rate 69 69 Respiratory Rate 11 L Blood Pressure Pulse Oximetry 99 100 10/14/18 12:32 10/14/18 12:44 10/14/18 13:00 Temperature 97.3 F L 97.2 F L Pulse Rate 76 79 Respiratory Rate Blood Pressure 160/71 H Pulse Oximetry 100 100 100 10/14/18 14:00 10/14/18 15:00 10/14/18 15:43 Temperature 96.3 F L Pulse Rate 81 71 Respiratory Rate 0 L 14 Blood Pressure Pulse Oximetry 100 97 98 10/14/18 16:00 10/14/18 17:00 10/14/18 18:00 Temperature 98.7 F Pulse Rate 69 63 67 Respiratory Rate 14 14 15 Blood Pressure Pulse Oximetry 95 97 99 10/14/18 19:00 10/14/18 19:37 10/14/18 20:00 Temperature 98.5 F Pulse Rate 63 67 Respiratory Rate 14 14 14 Blood Pressure Pulse Oximetry 99 99 98 10/14/18 21:00 10/14/18 22:00 10/14/18 23:00 Temperature Pulse Rate 72 69 72 Respiratory Rate 14 13 14 Blood Pressure Pulse Oximetry 98 99 98 10/15/18 00:00 10/15/18 01:00 10/15/18 01:54 Temperature 98.7 F Pulse Rate 100 H 95 H Respiratory Rate 17 16 18 Blood Pressure Pulse Oximetry 96 97 97 10/15/18 02:00 10/15/18 03:00 10/15/18 04:00 Temperature 98.2 F Pulse Rate 96 H 104 H 102 H Respiratory Rate 12 14 15 Blood Pressure Pulse Oximetry 97 98 98 10/15/18 04:20 10/15/18 05:00 10/15/18 06:00 Temperature Pulse Rate 103 H 100 H Respiratory Rate 16 14 13 Blood Pressure Pulse Oximetry 98 98 99 10/15/18 07:00 10/15/18 07:13 10/15/18 07:28 Temperature Pulse Rate 89 90 Respiratory Rate 14 14 13 Blood Pressure 110/54 L Pulse Oximetry 100 98 100 10/15/18 08:00 10/15/18 09:00 10/15/18 09:16 Temperature 98.5 F Pulse Rate 96 H 104 H Respiratory Rate 18 19 Blood Pressure Pulse Oximetry 99 99 10/15/18 10:00 Temperature Pulse Rate 100 H Respiratory Rate 26 H Blood Pressure Pulse Oximetry 99 Intake & Output 10/14/18 10/15/18 10/15/18 18:59 06:59 18:59 Intake Total 1750 / 1750 1467 / 1467 350 / 350 Output Total 1420 / 1420 1025 / 1025 Balance 330 / 330 442 / 442 350 / 350 Weight 95.9 kg Intake: IV 1750 / 1750 1300 / 1300 350 / 350 LR 1000 mL Inj 1,000 ML @ 100 1200 / 1200 800 / 800 mls/hr IV.CONT .Q10H [facility] Rx#: [id number] Diprivan 1000 mg/100 ml Inj 1, 200 / 200 400 / 400 000 mg In 100 ml @ 5 MCG/KG/MIN 2.835 mls/hr IV.CONT TITRATE PRN Rx#:[id number] Maxipime Inj 2,000 MG In NS Inj 100 / 100 100 / 100 100 / 100 100 ML @ 200 mls/hr IV.SIG Q12H [facility] Rx#:[id number] fentaNYL 10 mcg/mL Premix Drip 250 / 250 250 / 250 2,500 mcg In 250 ml @ 50 MCG/HR 5 mls/hr IV.SIG TITRATE PRN Rx #:[id number] Oral 0 / 0 Tube Feeding 47 / 47 Tube Irrigant 120 / 120 Output: Stool 0 / 0 Estimated Blood Loss 100 / 100 Urine Amount (Catheter) 1275 / 1275 900 / 900 Indwelling Urethral Catheter 1275 / 1275 900 / 900 Wound Drainage 45 / 45 125 / 125 Posterior Lumbar 45 / 45 125 / 125 Other: Date of Last Bowel Movement 10/10/18 10/10/18 10/10/18 # Bowel Movements 0 0 Result Diagrams: 10/15/18 08:25 10/15/18 08:25 Objective Remarks: GENERAL: Elderly gentleman, lightly sedated for vent synchrony, ongoing vent weaning. SKIN: warm/dry. HEAD: Normocephalic. Atraumatic EYES: No injection or drainage. No conjunctival icterus or injection ENT: tracheostomy in place, site clean and dry NECK: Tracheostomy in place CARDIOVASCULAR: S1-S2 normal, no murmurs. Neck veins are full, not tensely distended. RESPIRATORY: Air entry equal bilaterally, few scattered rhonchi, no wheezes. Plentiful mobile secretions. GASTROINTESTINAL: Abdomen soft, non-tender, nondistended. Bowel sounds are active. No guarding. MUSCULOSKELETAL: No cyanosis, or edema. Warm, well-perfused. NEURO: Intubated via tracheostomy, lightly sedated for vent synchrony. Moves all 4 limbs to stimulation. Episodically quite agitated. Of note, patient was perfectly well oriented and cooperative on admission. Lumbar drain in place with dressing over surgical site clean dry and intact. 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 Code(s): M47.16 - Other spondylosis with myelopathy, lumbar region Status: Acute (2) Weakness of lower extremity Code(s): R29.898 - Other symptoms and signs involving the musculoskeletal system Status: Acute (3) COPD (chronic obstructive pulmonary disease) Code(s): J44.9 - Chronic obstructive pulmonary disease, unspecified Status: Chronic (4) History of prostate cancer Code(s): Z85.46 - Personal history of malignant neoplasm of prostate Status: Chronic (5) History of hypertension Code(s): Z86.79 - Personal history of other diseases of the circulatory system Status: Chronic - Assessment and Plan Plan: ASSESSMENT: Acute hypoxemic hypercarbic/hypoxemic respiratory failure Respiratory arrest after receiving Ativan on 10/05/2018 Hypotension now resolved Lumbar cord compression likely secondary to large herniated disc, with lower extremity weakness Right L2/L3 discectomy 10/04/2018 for removal residual disc at right L2/3 s/p L2-5 revision fusion and left L2/3 discectomy on 10/02/18. Hypotension on pressors History of previous lumbar posterior fusion and microdiscectomy by Dr. Hansen Acute on chronic kidney disease Anemia requiring transfusion History of prostate cancer COPD History of hypertension PLAN: NEURO: -MRI showing large herniated disc at L2/3 and flex/ex showing instability at this level. -s/p L2-5 revision fusion and left L2/3 discectomy on 10/02/18. -post-op MRI with significant disc herniation at right L2/3 despite resection, Right L2/L3 discectomy 10/04/2018 - Lumbar drain in place for CSF leak. Status post lumbar wound revision on by neurosurgery -Spine precautions -Currently sedated with Versed/ propofol and fentanyl. -Start Precedex to facilitate vent weaning, add Seroquel 50 twice daily -Neurosurgery Dr. Peter. -Ketty prn, to take p.o. atypical antipsychotic Seroquel. Valproate dose increased on 10/13 RESP: -Extubated 10/05/18 however became unresponsive and hypoxic after receiving Ativan for agitation -Emergently reintubated and placed on mechanical ventilation -Currently on PRVC/AC -DuoNeb every 6 hours scheduled and as needed -Tapered off solumedrol. -Aggressive pulmonary toilet -f/u sputum culture, continue empiric cefepime -Extubated again 10/07 -Required reintubation 5 hours after extubation due to secretions and hypoxemia. Situation made worse by underlying agitation. -Tracheostomy performed 10/08 -Continue spontaneous breathing trials. -Hold diuretics for a few days. CV: -Cardiac decompensation most likely secondary to pulmonary problems, hypoxemia -Gas exchange improving GI: - IV famotidine. Continue tube feeds -Bowel regimen : -Monitor renal function closely. -Strict intake output, monitor and replete elect lites, follow given creatinine ID: -Sputum culture, stop cefepime due to rash, will switch to IV Azactam and vancomycin due to rash. Benadryl as needed for rash HEME: -Transfused 1 unit PRBC -Monitor CBC, coags ENDO: -Electrolyte replacement per protocol PROPH: -Bilateral lower extremity SCDs. No chemical DVT prophylaxis due to spinal surgery/continue famotidine LINES: -Utilize peripheral IVs, central line as needed -PT evaluate and treat All impression: Patient remains critically ill and ventilator dependent and we have been unable to keep him extubated for more than a few hours. His baseline mental status was quite good prior to this and so far the family has requested ongoing aggressive care. We will continue to try to clean up his lungs and encourage ventilator weaning. Lumbar drain in place, hold transfer to LTAC for now. It seems the gentleman either has pleural effusions or renal failure depending how successfully we have diuresed him. He remains unstable and will likely be a long-term vent weaning problem. Critical care time 35 minutes aside from procedures.
[2018-10-15] MEDS ORDERED: Vancomycin Consult Pharmacy OTHER PRN (10:39)
[2018-10-15] MEDS ORDERED: Vancomycin Inj 1,000 MG in Sodium Chlor 0.9% Inj 250 ML IV.SIG SCH (11:00)
[2018-10-15] MEDS: Sodium Chloride 0.9% 2 ML Flush BID IV.FLUSH SCH ×2 (13:00→20:15)
[2018-10-15] MEDS: Vancomycin Inj 1,500 MG in Sodium Chlor 0.9% Inj 500 ML IV.SIG SCH (13:00)
[2018-10-15] MEDS: Dexmedetomidine Inj 200 MCG in Sodium Chlor 0.9% Inj 48 ML IV.CONT PRN ×4 (15:00→23:36)
[2018-10-16] MEDS: Bisacodyl 10 MG Supp RECTAL PRN (00:38)
[2018-10-16] MEDS: Dexmedetomidine Inj 200 MCG in Sodium Chlor 0.9% Inj 48 ML IV.CONT PRN ×10 (02:06→22:44)
[2018-10-16] MEDS: fentaNYL 10 mcg/mL Premix Drip 2,500 MCG/250 ML BAG IV.SIG PRN (02:38)
[2018-10-16] MEDS: Oral Hygiene Kit OROPHARYNG SCH ×3 (03:02→17:14)
[2018-10-16] MEDS: Divalproex 125 MG Sprinkles Capsule PO SCH ×2 (08:11→21:59)
[2018-10-16] MEDS: QUEtiapine 25 MG Tablet PO SCH (08:11)
[2018-10-16] MEDS: Senna/Docusate Sodium 8.6/50 MG Tablet PO SCH ×2 (08:11→22:00)
[2018-10-16] MEDS: Famotidine PF Inj 20 MG/2 ML Vial IV.PUSH SCH ×2 (08:11→22:01)
--- NOTE | 2018-10-16 08:44 | P.PNCC ---
Subjective Subjective Remarks/Hospital Course: Patient is a 73-year-old male with past medical history significant for hypertension, COPD, Prostate carcinoma, history of previous lumbar laminectomy who came to the [place] emergency department as a transfer from transfer from [facility]. He was accepted by neurosurgery Dr. Peter for acute onset bilateral lower extremity weakness. Patient states that he woke up this morning around 6 AM with numbness and weakness of bilateral lower extremity. On attempt to walk he fell on his face due to weakness. Patient states that the strength got slight better since then. CT scan of the lumbar spine large area of soft attenuation attenuation in the ventral epidural space L2-L3 level suspicious for large disc extrusion with spinal canal stenosis with differential diagnosis involving hemorrhage, there is also at least moderate bilateral neural foraminal stenosis. I evaluate the patient in the ED. He complains of weakness more on the left leg which he is unable to lift. There is generalized numbness but he is able to feel my touch. Critical care was requested to admit the patient to the ICU. Discussed with Dr. Mittal ED and Dr. Peter neurosurgery. A stat MRI of the lumbar spine had been ordered. 10/03: Remains intubated sedated. Remains on Levophed at 10 mcg/min to maintain map above 70. Patient is s/p L2 to L5 posterior spinal fusion, Left L2 /3 microdiscectomy. (MRI showed large herniated disc at L2/3 and flex/ex showing instability at this level). On sedation hold patient is moving all 4 extremities. Hb 8.3 will transfuse 1 unit PRBC due to hypotension 10/04: Remains intubated sedated remains on 8 mcg/min of Levophed to maintain map above 75. Transfusing 1 unit PRBC for hemoglobin 7.4. post-op MRI with significant disc herniation at L2/3. Scheduled for surgery today with Dr. Peter 10/05: Patient underwent surgery on 10/04/2018 for removal residual disc at L2/ 3 right side based on post-op MRI. (s/p L2-5 revision fusion and left L2/3 discectomy on 10/02/18). Today patient's hypoxemia had improved, he was awake but on lightening sedation was very agitated so after a short CPAP trial patient was extubated. Shortly after extubation patient became very agitated requiring four-point restraints and physically nurses having to restrain him. 2 mg IV Ativan was given following which patient became partially responsive with obstructive airway sounds. Shortly became hypoxemic desaturated, became bradycardic in 40s and systolic blood pressure does drop to mid 40s. I was emergently called to the bedside I started bag and mask ventilation immediately. Half ampule of epinephrine was post IV. His heart rate in systolic blood pressure improved with bag and mask ventilation and epinephrine push however he remained unresponsive. Emergently intubated and placed on mechanical ventilation. Once more responsive will start on sedation with Versed. Start Levophed to maintain map above 65. Postintubation chest x-ray is pending. 10/06: Remains intubated heavily sedated for vent synchrony. Patient gets very agitated on holding sedation. We will start Precedex to facilitate vent weaning. Hemoglobin is 7.1, 1 unit of PRBC followed by IV Lasix ordered. 10/07: Agitated. TVs > 1.0 liter spontaneous. Extubated. Patient required reintubation about 5 hours later due to hypoxemia. 10/08: Intubated for the third time last evening. He is unable to tolerate extubation due to a combination of underlying lung disease and severe agitation. If the family wishes to proceed he will require tracheostomy for safe weaning from the ventilator. His baseline mental status is apparently pretty close to normal. 10/09: Tracheostomy placed yesterday. Large amounts of white thick secretions encountered. Chest x-ray continues with a pattern of pulmonary edema. We will continue aggressive twice daily diuretic therapy. Ostensibly plan is to transfer to [facility] at the beginning of next week. One family member is not on board with that yet however. 10/10: Lumbar drain has been placed. Continue spontaneous breathing trials through tracheostomy. Continue discussions with family about transfer to LTAC for long-term weaning. No evidence of infection. 10/11: Effective diuresis but now developing a mild prerenal azotemia. Will hold off for a while and gently hydrate. Now the tracheostomy is performed there is not quite urgency to desiccate his lungs. Hopefully we can work toward a cyst transferred to [facility] after lumbar drain discontinued. 10/12: Following tracheostomy we will continue with attempts at ventilator weaning. Patient has a lumbar drain in place in an attempt to stop a lumbar region wound CSF leak. Critical access hospital will take this patient for long-term weaning once lumbar drain is out. Gentle hydration continues until such time as prerenal azotemia is attenuated. Continue enteral nutrition. 10/13: Remains on mechanical ventilation via tracheostomy. Still on significant sedation due to agitation issues. Lumbar drain continues to drain. Possible surgery tomorrow. 10/14: Remains sedated, on mechanical ventilation via tracheostomy. Scheduled for surgery today for CSF leak lumbar region. 10/15: Remains sedated on mechanical ventilation via tracheostomy. Status post revision of lumbar wound on 10/14 by neurosurgery. Lumbar drain in place and drained 120 cc since yesterday. 10/16: Remains on mechanical ventilation via tracheostomy. Still dealing with agitation on lightening sedation. On Precedex/fentanyl. Received 1 dose of Geodon last night. Also getting as needed Ativan and Seroquel. Objective Vital Signs / I&O: Vital Signs 10/15/18 09:00 10/15/18 09:16 10/15/18 10:00 Temperature 98.5 F Pulse Rate 104 H 100 H Respiratory Rate 19 26 H Blood Pressure Pulse Oximetry 99 99 10/15/18 11:00 10/15/18 11:27 10/15/18 12:00 Temperature 98.6 F Pulse Rate 132 H 115 H Respiratory Rate 26 H 11 L 13 Blood Pressure Pulse Oximetry 99 99 98 10/15/18 13:00 10/15/18 14:00 10/15/18 15:00 Temperature Pulse Rate 104 H 138 H 140 H Respiratory Rate 12 25 H 28 H Blood Pressure Pulse Oximetry 99 99 97 10/15/18 15:57 10/15/18 16:00 10/15/18 16:51 Temperature 98.3 F Pulse Rate 131 H 79 Respiratory Rate 19 44 H 11 L Blood Pressure 94/54 L Pulse Oximetry 98 98 98 10/15/18 17:00 10/15/18 18:00 10/15/18 19:00 Temperature Pulse Rate 103 H 131 H 85 Respiratory Rate 26 H 48 H 20 Blood Pressure Pulse Oximetry 99 95 99 10/15/18 19:39 10/15/18 19:59 10/15/18 20:00 Temperature 98.7 F Pulse Rate 69 68 Respiratory Rate 19 15 15 Blood Pressure 97/53 L Pulse Oximetry 100 97 97 10/15/18 20:13 10/15/18 20:29 10/15/18 21:00 Temperature Pulse Rate 64 66 81 Respiratory Rate 15 15 23 Blood Pressure 95/54 L 99/55 L Pulse Oximetry 97 97 98 10/15/18 21:15 10/15/18 21:23 10/15/18 22:00 Temperature Pulse Rate 61 58 L 57 L Respiratory Rate 14 15 15 Blood Pressure 99/55 L 97/55 L Pulse Oximetry 98 98 99 10/15/18 23:00 10/15/18 23:32 10/16/18 00:00 Temperature 98.2 F Pulse Rate 57 L 57 L 59 L Respiratory Rate 15 15 17 Blood Pressure Pulse Oximetry 99 98 97 10/16/18 01:00 10/16/18 01:07 10/16/18 02:00 Temperature Pulse Rate 81 65 83 Respiratory Rate 14 15 18 Blood Pressure 110/53 L Pulse Oximetry 98 96 97 10/16/18 03:00 10/16/18 03:49 10/16/18 04:00 Temperature 98.7 F Pulse Rate 59 L 57 L 65 Respiratory Rate 16 15 19 Blood Pressure Pulse Oximetry 96 98 98 10/16/18 05:00 10/16/18 06:00 10/16/18 07:00 Temperature Pulse Rate 70 58 L 56 L Respiratory Rate 0 L 14 16 Blood Pressure Pulse Oximetry 95 96 95 10/16/18 07:18 Temperature Pulse Rate 55 L Respiratory Rate 15 Blood Pressure Pulse Oximetry 95 Intake & Output 10/15/18 10/16/18 10/16/18 18:59 06:59 18:59 Intake Total 2171 / 2171 2097 / 2097 Output Total 1130 / 1130 600 / 600 Balance 1041 / 1041 1497 / 1497 Weight 95 kg Intake: IV 2065 / 2065 1750 / 1750 Precedex Inj 200 MCG In NS Inj 100 / 100 300 / 300 48 ML @ 0.2 MCG/KG/HR 4.58 mls/ hr IV.CONT TITRATE PRN Rx#: [id number] LR 1000 mL Inj 1,000 ML @ 100 1000 / 1000 1000 / 1000 mls/hr IV.CONT .Q10H [facility] Rx#: [id number] Azactam Inj 1,000 MG In NS Inj 100 / 100 200 / 200 100 ML @ 200 mls/hr IV.SIG Q8H [facility] Rx#:[id number] Maxipime Inj 2,000 MG In NS Inj 100 / 100 100 ML @ 200 mls/hr IV.SIG Q12H [facility] Rx#:[id number] Vancomycin Inj 1,500 MG In NS 515 / 515 Inj 500 ML @ 250 mls/hr IV.SIG Q24H [facility] Rx#:[id number] fentaNYL 10 mcg/mL Premix Drip 250 / 250 250 / 250 2,500 mcg In 250 ml @ 50 MCG/HR 5 mls/hr IV.SIG TITRATE PRN Rx #:[id number] Tube Feeding 106 / 106 107 / 107 Tube Irrigant 240 / 240 Output: Urine Amount (Catheter) 1000 / 1000 600 / 600 Indwelling Urethral Catheter 1000 / 1000 600 / 600 Wound Drainage 130 / 130 Posterior Lumbar 130 / 130 Other: Date of Last Bowel Movement 10/10/18 10/16/18 # Bowel Movements 1 Result Diagrams: 10/15/18 08:25 10/15/18 08:25 Objective Remarks: GENERAL: Elderly gentleman, lightly sedated for vent synchrony, ongoing vent weaning. SKIN: warm/dry. HEAD: Normocephalic. Atraumatic EYES: No injection or drainage. No conjunctival icterus or injection ENT: tracheostomy in place, site clean and dry NECK: Tracheostomy in place CARDIOVASCULAR: S1-S2 normal, no murmurs. Neck veins are full, not tensely distended. RESPIRATORY: Air entry equal bilaterally, few scattered rhonchi, no wheezes. Plentiful mobile secretions. GASTROINTESTINAL: Abdomen soft, non-tender, nondistended. Bowel sounds are active. No guarding. MUSCULOSKELETAL: No cyanosis, or edema. Warm, well-perfused. NEURO: Intubated via tracheostomy, lightly sedated for vent synchrony. Moves all 4 limbs to stimulation. Episodically quite agitated. Of note, patient was perfectly well oriented and cooperative on admission. Lumbar drain in place with dressing over surgical site clean dry and intact. 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 Code(s): M47.16 - Other spondylosis with myelopathy, lumbar region Status: Acute (2) Weakness of lower extremity Code(s): R29.898 - Other symptoms and signs involving the musculoskeletal system Status: Acute (3) COPD (chronic obstructive pulmonary disease) Code(s): J44.9 - Chronic obstructive pulmonary disease, unspecified Status: Chronic (4) History of prostate cancer Code(s): Z85.46 - Personal history of malignant neoplasm of prostate Status: Chronic (5) History of hypertension Code(s): Z86.79 - Personal history of other diseases of the circulatory system Status: Chronic - Assessment and Plan Plan: ASSESSMENT: Acute hypoxemic hypercarbic/hypoxemic respiratory failure Respiratory arrest after receiving Ativan on 10/05/2018 Hypotension now resolved Lumbar cord compression likely secondary to large herniated disc, with lower extremity weakness Right L2/L3 discectomy 10/04/2018 for removal residual disc at right L2/3 s/p L2-5 revision fusion and left L2/3 discectomy on 10/02/18. Hypotension on pressors History of previous lumbar posterior fusion and microdiscectomy by Dr. Hansen Acute on chronic kidney disease Anemia requiring transfusion History of prostate cancer COPD History of hypertension PLAN: NEURO: -MRI showing large herniated disc at L2/3 and flex/ex showing instability at this level. -s/p L2-5 revision fusion and left L2/3 discectomy on 10/02/18. -post-op MRI with significant disc herniation at right L2/3 despite resection, Right L2/L3 discectomy 10/04/2018 - Lumbar drain in place for CSF leak. Status post lumbar wound revision on by neurosurgery -Spine precautions -Currently sedated with Versed/ propofol and fentanyl. -Started Precedex to facilitate vent weaning, Seroquel 50 twice daily -Neurosurgery Dr. Peter. -Ketty prn, to take p.o. atypical antipsychotic Seroquel. Valproate dose increased on 10/13 RESP: -Extubated 10/05/18 however became unresponsive and hypoxic after receiving Ativan for agitation -Emergently reintubated and placed on mechanical ventilation -Currently on PRVC/AC -DuoNeb every 6 hours scheduled and as needed -Tapered off solumedrol. -Aggressive pulmonary toilet -f/u sputum culture, continue empiric cefepime -Extubated again 10/07 -Required reintubation 5 hours after extubation due to secretions and hypoxemia. Situation made worse by underlying agitation. -Tracheostomy performed 10/08 -Continue spontaneous breathing trials. -Hold diuretics for a few days. CV: -Cardiac decompensation most likely secondary to pulmonary problems, hypoxemia -Gas exchange improving GI: - IV famotidine. Continue tube feeds -Bowel regimen : -Monitor renal function closely. -Strict intake output, monitor and replete elect lites, follow given creatinine ID: -Sputum culture, stop cefepime due to rash, switched to IV Azactam and vancomycin due to rash on 10/16. Benadryl as needed for rash - ID consult for antibiotic management HEME: -Transfused 1 unit PRBC -Monitor CBC, coags ENDO: -Electrolyte replacement per protocol PROPH: -Bilateral lower extremity SCDs. No chemical DVT prophylaxis due to spinal surgery/continue famotidine LINES: -Utilize peripheral IVs, central line as needed -PT evaluate and treat All impression: Patient remains critically ill and ventilator dependent and we have been unable to keep him extubated for more than a few hours. His baseline mental status was quite good prior to this and so far the family has requested ongoing aggressive care. We will continue to try to clean up his lungs and encourage ventilator weaning. Lumbar drain in place, hold transfer to LTAC for now. It seems the gentleman either has pleural effusions or renal failure depending how successfully we have diuresed him. He remains unstable and will likely be a long-term vent weaning problem. Critical care time 35 minutes aside from procedures.
--- NOTE | 2018-10-16 10:32 | P.PNNS ---
Subjective Interval history: Vent weaning, shaking head back and forth but not to command Dressing dry in back. CSF starting to look yellow-- sample sent today Physical Exam Vital signs: Vital Signs 10/15/18 11:00 10/15/18 11:27 10/15/18 12:00 Temperature 98.6 F Pulse Rate 132 H 115 H Respiratory Rate 26 H 11 L 13 Blood Pressure Pulse Oximetry 99 99 98 10/15/18 13:00 10/15/18 14:00 10/15/18 15:00 Temperature Pulse Rate 104 H 138 H 140 H Respiratory Rate 12 25 H 28 H Blood Pressure Pulse Oximetry 99 99 97 10/15/18 15:57 10/15/18 16:00 10/15/18 16:51 Temperature 98.3 F Pulse Rate 131 H 79 Respiratory Rate 19 44 H 11 L Blood Pressure 94/54 L Pulse Oximetry 98 98 98 10/15/18 17:00 10/15/18 18:00 10/15/18 19:00 Temperature Pulse Rate 103 H 131 H 85 Respiratory Rate 26 H 48 H 20 Blood Pressure Pulse Oximetry 99 95 99 10/15/18 19:39 10/15/18 19:59 10/15/18 20:00 Temperature 98.7 F Pulse Rate 69 68 Respiratory Rate 19 15 15 Blood Pressure 97/53 L Pulse Oximetry 100 97 97 10/15/18 20:13 10/15/18 20:29 10/15/18 21:00 Temperature Pulse Rate 64 66 81 Respiratory Rate 15 15 23 Blood Pressure 95/54 L 99/55 L Pulse Oximetry 97 97 98 10/15/18 21:15 10/15/18 21:23 10/15/18 22:00 Temperature Pulse Rate 61 58 L 57 L Respiratory Rate 14 15 15 Blood Pressure 99/55 L 97/55 L Pulse Oximetry 98 98 99 10/15/18 23:00 10/15/18 23:32 10/16/18 00:00 Temperature 98.2 F Pulse Rate 57 L 57 L 59 L Respiratory Rate 15 15 17 Blood Pressure Pulse Oximetry 99 98 97 10/16/18 01:00 10/16/18 01:07 10/16/18 02:00 Temperature Pulse Rate 81 65 83 Respiratory Rate 14 15 18 Blood Pressure 110/53 L Pulse Oximetry 98 96 97 10/16/18 03:00 10/16/18 03:49 10/16/18 04:00 Temperature 98.7 F Pulse Rate 59 L 57 L 65 Respiratory Rate 16 15 19 Blood Pressure Pulse Oximetry 96 98 98 10/16/18 05:00 10/16/18 06:00 10/16/18 07:00 Temperature Pulse Rate 70 58 L 56 L Respiratory Rate 0 L 14 16 Blood Pressure Pulse Oximetry 95 96 95 10/16/18 07:18 10/16/18 08:00 10/16/18 09:00 Temperature 98.5 F Pulse Rate 55 L 57 L 56 L Respiratory Rate 15 22 18 Blood Pressure Pulse Oximetry 95 95 96 10/16/18 10:00 10/16/18 10:17 Temperature Pulse Rate 60 Respiratory Rate 16 18 Blood Pressure Pulse Oximetry 96 95 Intake & Output 10/15/18 10/16/18 10/16/18 18:59 06:59 18:59 Intake Total 2171 / 2171 2097 / 2097 Output Total 1130 / 1130 600 / 600 Balance 1041 / 1041 1497 / 1497 Weight 95 kg Intake: IV 2065 / 2065 1750 / 1750 Precedex Inj 200 MCG In NS Inj 100 / 100 300 / 300 48 ML @ 0.2 MCG/KG/HR 4.58 mls/ hr IV.CONT TITRATE PRN Rx#: [id number] LR 1000 mL Inj 1,000 ML @ 100 1000 / 1000 1000 / 1000 mls/hr IV.CONT .Q10H [facility] Rx#: [id number] Azactam Inj 1,000 MG In NS Inj 100 / 100 200 / 200 100 ML @ 200 mls/hr IV.SIG Q8H [facility] Rx#:[id number] Maxipime Inj 2,000 MG In NS Inj 100 / 100 100 ML @ 200 mls/hr IV.SIG Q12H [facility] Rx#:[id number] Vancomycin Inj 1,500 MG In NS 515 / 515 Inj 500 ML @ 250 mls/hr IV.SIG Q24H [facility] Rx#:[id number] fentaNYL 10 mcg/mL Premix Drip 250 / 250 250 / 250 2,500 mcg In 250 ml @ 50 MCG/HR 5 mls/hr IV.SIG TITRATE PRN Rx #:[id number] Tube Feeding 106 / 106 107 / 107 Tube Irrigant 240 / 240 Output: Urine Amount (Catheter) 1000 / 1000 600 / 600 Indwelling Urethral Catheter 1000 / 1000 600 / 600 Wound Drainage 130 / 130 Posterior Lumbar 130 / 130 Other: Date of Last Bowel Movement 10/10/18 10/16/18 10/16/18 # Bowel Movements 1 Narrative: Dressing dry. Lumbar drain in place. Shakes head back and forth, withdraws in uppers - Urinary Catheter Management Indwelling Urethral Catheter Cath placed during this visit: yes Reason for continuing: Hourly intake/output Insertion date: 10/02/18 Insertion time: 20:32 Assessment and Plan - Plan 73yoM po (10/02/18) L2-5 revision fusion and left L2/3 discectomy 10/15/18 pod#1 revision of lumbar wound. Keep Lumbar Drain at 5cm below EAC, goal 160/ 12 hours (or 120/8 hour shift). 10/16/18 CSF starting to show yellow-- sample sent to micro/lab dressing dry. continue lumbar drainage until Friday
[2018-10-16] MEDS: Sodium Chloride 0.9% 2 ML Flush BID IV.FLUSH SCH ×2 (10:41→22:01)
[2018-10-16] MEDS: Chlorhexidine 0.12% Oral Kit 15 ML UDC OROPHARYNG SCH ×2 (10:41→21:59)
--- NOTE | 2018-10-16 10:41 | P.CONID ---
History of Present Illness Service: Infectious Diseases Consult date: 10/16/18 Requesting Physician: Jacques Augustin Primary Care Provider: Srinivas Mendieta Chief Complaint: Lower extremity weakness History of Present Illness: Patient seen and examined. Records reviewed. Patient is a 73-year-old male, initially presented at [facility] for evaluation of acute onset bilateral lower extremity weakness. He apparently woke up on the morning of presentation with numbness and weakness of bilateral lower extremity. He tried to walk but fell on his face. Patient presented to [facility] and CT of the lumbar spine showed a large area of soft attenuation in the ventral epidural space at L2-L3 suspicious for a large disc extrusion with spinal canal stenosis. He was transferred here at [facility] for neurosurgical evaluation. He underwent surgery on October 02 and had L2-L5 posterior spinal fusion, and left L2-L3 microdiscectomy. He was on the vent postoperatively. He had a repeat MRI on October 03 which showed disc herniation, and the patient underwent surgery again and had a right discectomy L2-L3. Patient has had problem with his respiratory status. He was extubated and reintubated 3 times, and subsequently underwent tracheostomy on October 08. On October 09 he was found to have a CSF leak, and underwent placement of a lumbar drain. He continues to have drainage, and he went to surgery again on October 14 and had revision of the lumbar wound, and repair of the leak, and has a lumbar drain again. Patient has been on cefepime since October 05. Yesterday he was noted to have a rash, and his antibiotic was changed to Azactam and vancomycin. Was also noted that his CSF was initially clear, and today the CSF looked blood tinged. He is afebrile. He is on the vent. He is awake but he is really not following commands. Infectious disease consultation has been requested to assist with antibiotic management in a patient who has had a CSF leak. Review of Systems unobtainable due to endotracheal tube, unobtainable due to mental status Constitutional: Denies fever(s) PMFSH - History History Provided By: Patient - Medical History Medical History: Medical History (Last Reviewed 10/16/18 @ 11:00 by Jelly Jeronimo MD) Back pain Colonic polyp GERD (gastroesophageal reflux disease) Hypertension Neuropathy Osteoarthritis Prostate carcinoma - Surgical History Surgical History: Surgical History (Last Reviewed 10/16/18 @ 11:00 by Jelly Jeronimo MD) Hx of endarterectomy - Tobacco History Second Hand Smoke Exposure: Yes Tobacco Use In Past 30 Days: Yes Smoking Status: Smoker, status unknown Tobacco Type: Cigarettes - Alcohol History How Often Do You Have a Drink Containing Alcohol: Unable to Obtain - Substance Use History Substance History: No History of Abuse - Travel History Recent Travel in the [place] Within the Last 8 Weeks: No Recent Travel Out of the Country Within the Last 8 Weeks: No - Immunization History Tetanus Immunization: Unsure Hx Influenza Vaccine This Season: Unable to Assess Medications and Allergies Active Medications: Active Medications Acetaminophen (Tylenol) 650 mg PO Q6H PRN PRN Reason: PAIN 1-10 AND/OR FEVER >101F Al Hydroxide/Mg Hydroxide (Milk Of Magnbecca Liq) 30 ml PO Q12H PRN PRN Reason: Mild Constipation Last Admin: 10/15/18 06:44 Dose: 30 ml Albuterol (Albuterol Neb (Prn)) 2.5 mg NEB Q2HR NEB PRN PRN Reason: SHORTNESS OF BREATH/WHEEZING Albuterol (Duoneb Neb (Adam)) 1 ampul NEB Q4HR NEB ADAM Last Admin: 10/16/18 07:15 Dose: 1 ampul Bisacodyl (Dulcolax Supp) 10 mg RECTAL DAILY PRN PRN Reason: SEVERE CONSITIPATION Last Admin: 10/16/18 00:38 Dose: 10 mg Chlorhexidine Gluconate (Peridex 0.12% Oral Kit) 15 ml OROPHARYNG BID@0800, 2000 [facility] Last Admin: 10/15/18 19:44 Dose: 15 ml Diphenhydramine HCl (Benadryl Inj) 25 mg IV.PUSH Q6HR [facility] Last Admin: 10/16/18 05:03 Dose: 25 mg Divalproex Sodium (Depakote Sprinkles) 500 mg PO BID [facility] Last Admin: 10/16/18 08:11 Dose: 500 mg Famotidine (Pepcid Pf Inj) 10 mg IV.PUSH Q12HR [facility] Last Admin: 10/16/18 08:11 Dose: 10 mg Furosemide (Lasix Inj) 40 mg IV.PUSH BID@0900,1800 [facility] Last Admin: 10/11/18 08:53 Dose: 40 mg Hydralazine HCl (Apresoline Inj) 20 mg IV.PUSH Q2H PRN PRN Reason: SBP > 160 Last Admin: 10/15/18 10:31 Dose: 20 mg Fentanyl (Fentanyl 10 Mcg/Ml Premix Drip) 2,500 mcg in 250 mls @ 5 mls/hr IV.SIG TITRATE PRN; Protocol PRN Reason: Per Protocol Last Admin: 10/16/18 02:38 Dose: 200 mcg/hr, 20 mls/hr Norepinephrine Bitartrate (Levophed-Dextrose 4 Mg/250 Ml Drip) 4 mg in 250 mls @ 7.5 mls/hr IV.SIG TITRATE PRN; Protocol PRN Reason: Per Protocol Last Titration: 10/11/18 07:00 Dose: 0 mcg/min, 0 mls/hr Dexmedetomidine HCl 200 mcg/ (Sodium Chloride) 50 mls @ 4.58 mls/hr IV.CONT TITRATE PRN; Protocol PRN Reason: Per Protocol Last Admin: 10/16/18 07:46 Dose: 1.5 mcg/kg/hr, 34.38 mls/hr Propofol (Diprivan 1000 Mg/100 Ml Inj) 1,000 mg in 100 mls @ 2.835 mls/hr IV.CONT TITRATE PRN; Protocol PRN Reason: Per Protocol Last Titration: 10/15/18 10:38 Dose: 5 mcg/kg/min, 2.84 mls/hr Midazolam HCl (Versed Inj) 100 mg in 100 mls @ 2 mls/hr IV.CONT TITRATE PRN; Protocol PRN Reason: PER PROTOCOL Last Titration: 10/15/18 07:30 Dose: 0 mg/hr, 0 mls/hr Lactated Ringer's (Lr 1000 Ml Inj) 1,000 mls @ 100 mls/hr IV.CONT .Q10H [facility] Last Admin: 10/15/18 22:37 Dose: 50 mls/hr Aztreonam 1,000 mg/ Sodium (Chloride) 100 mls @ 200 mls/hr IV.SIG Q8H ADAM Last Infusion: 10/16/18 03:31 Dose: Infused Vancomycin HCl 1,500 mg/ (Sodium Chloride) 515 mls @ 250 mls/hr IV.SIG Q24H [facility] Last Infusion: 10/15/18 15:05 Dose: Infused Lactulose (Lactulose Liq) 30 ml PO DAILY PRN PRN Reason: SEVERE CONSITIPATION Last Admin: 10/15/18 19:44 Dose: 30 ml Lorazepam (Ativan Inj) 0.5 mg IV.PUSH Q6H PRN PRN Reason: SEVERE AGITATION Last Admin: 10/16/18 05:03 Dose: 0.5 mg Miscellaneous Information ([facility] Ordered Lab Info) 0 each OTHER ONCE ONE Stop: 10/18/18 12:46 Miscellaneous Medication () 1 each OROPHARYNG 0000,0400,1200,1600 [facility] Last Admin: 10/16/18 03:02 Dose: 1 each Morphine Sulfate (Morphine Inj) 2 mg IV.PUSH Q4H PRN PRN Reason: 6-10 pain Last Admin: 10/07/18 21:47 Dose: 2 mg Pharmacy Profile Note (Vancomycin Consult Pharmacy) 1 each OTHER UNSCH PRN PRN Reason: Pharmacy to dose Quetiapine Fumarate (Seroquel) 50 mg PO BID [facility] Last Admin: 10/16/18 08:11 Dose: 50 mg Senna/Docusate Sodium (Shazia-Colace) 1 tab PO BID [facility] Last Admin: 10/16/18 08:11 Dose: 1 tab Sennosides (Senokot) 17.2 mg PO Q12H PRN PRN Reason: Moderate Constipation Sodium Chloride (Ns Flush) 2 ml IV.FLUSH BID [facility] Last Admin: 10/15/18 20:15 Dose: 2 ml Sodium Chloride (Ns Flush) 2 ml IV.FLUSH PRN PRN PRN Reason: FLUSH AFTER USING IV ACCESS Terbutaline Sulfate (Brethine Inj) 1 mg SQ UNSCH PRN PRN Reason: For Extravasation Ziprasidone (Geodon Inj) 20 mg IM Q12H PRN PRN Reason: SEVERE AGITATION Last Admin: 10/15/18 23:35 Dose: 20 mg Allergies Allergy/AdvReac Type Severity Reaction Status Date / Time No Known Allergies Unknown Uncoded 10/27/17 16:04 Home Medications Medication Instructions Recorded Confirmed Type aspirin 81 mg PO DAILY 10/02/18 10/02/18 History citalopram 20 mg PO DAILY 10/02/18 10/02/18 History divalproex 1,500 mg PO DAILY 10/02/18 10/02/18 History gabapentin 300 mg PO BID 10/02/18 10/02/18 History losartan 10 mg PO DAILY 10/02/18 10/02/18 History meloxicam 15 mg PO DAILY 10/02/18 10/02/18 History pantoprazole [Protonix] 40 mg PO DAILY 10/02/18 10/02/18 History Depakote 500 TID 10/12/18 History citalopram 10/12/18 History citalopram 20 mg PO DAILY 10/12/18 10/12/18 History gabapentin 300 mg BID 10/12/18 10/12/18 History losartan 10/12/18 History meloxicam 15 mg PO DAILY 10/12/18 10/12/18 History ffyulgvp-rrsvhede-nugvgar fum 10/12/18 History [Multi Vitamin] pantoprazole [Protonix] 40 mg PO DAILY 10/12/18 10/12/18 History Exam Vital signs: Vital Signs 10/15/18 11:00 10/15/18 11:27 10/15/18 12:00 Temperature 98.6 F Pulse Rate 132 H 115 H Respiratory Rate 26 H 11 L 13 Blood Pressure Pulse Oximetry 99 99 98 10/15/18 13:00 10/15/18 14:00 10/15/18 15:00 Temperature Pulse Rate 104 H 138 H 140 H Respiratory Rate 12 25 H 28 H Blood Pressure Pulse Oximetry 99 99 97 10/15/18 15:57 10/15/18 16:00 10/15/18 16:51 Temperature 98.3 F Pulse Rate 131 H 79 Respiratory Rate 19 44 H 11 L Blood Pressure 94/54 L Pulse Oximetry 98 98 98 10/15/18 17:00 10/15/18 18:00 10/15/18 19:00 Temperature Pulse Rate 103 H 131 H 85 Respiratory Rate 26 H 48 H 20 Blood Pressure Pulse Oximetry 99 95 99 10/15/18 19:39 10/15/18 19:59 10/15/18 20:00 Temperature 98.7 F Pulse Rate 69 68 Respiratory Rate 19 15 15 Blood Pressure 97/53 L Pulse Oximetry 100 97 97 10/15/18 20:13 10/15/18 20:29 10/15/18 21:00 Temperature Pulse Rate 64 66 81 Respiratory Rate 15 15 23 Blood Pressure 95/54 L 99/55 L Pulse Oximetry 97 97 98 10/15/18 21:15 10/15/18 21:23 10/15/18 22:00 Temperature Pulse Rate 61 58 L 57 L Respiratory Rate 14 15 15 Blood Pressure 99/55 L 97/55 L Pulse Oximetry 98 98 99 10/15/18 23:00 10/15/18 23:32 10/16/18 00:00 Temperature 98.2 F Pulse Rate 57 L 57 L 59 L Respiratory Rate 15 15 17 Blood Pressure Pulse Oximetry 99 98 97 10/16/18 01:00 10/16/18 01:07 10/16/18 02:00 Temperature Pulse Rate 81 65 83 Respiratory Rate 14 15 18 Blood Pressure 110/53 L Pulse Oximetry 98 96 97 10/16/18 03:00 10/16/18 03:49 10/16/18 04:00 Temperature 98.7 F Pulse Rate 59 L 57 L 65 Respiratory Rate 16 15 19 Blood Pressure Pulse Oximetry 96 98 98 10/16/18 05:00 10/16/18 06:00 10/16/18 07:00 Temperature Pulse Rate 70 58 L 56 L Respiratory Rate 0 L 14 16 Blood Pressure Pulse Oximetry 95 96 95 10/16/18 07:18 10/16/18 08:00 10/16/18 09:00 Temperature 98.5 F Pulse Rate 55 L 57 L 56 L Respiratory Rate 15 22 18 Blood Pressure Pulse Oximetry 95 95 96 10/16/18 10:00 10/16/18 10:17 Temperature Pulse Rate 60 Respiratory Rate 16 18 Blood Pressure Pulse Oximetry 96 95 Intake & Output 10/15/18 10/16/18 10/16/18 18:59 06:59 18:59 Intake Total 2171 / 2171 2097 / 2097 Output Total 1130 / 1130 600 / 600 Balance 1041 / 1041 1497 / 1497 Weight 95 kg Intake: IV 2065 / 2065 1750 / 1750 Precedex Inj 200 MCG In NS Inj 100 / 100 300 / 300 48 ML @ 0.2 MCG/KG/HR 4.58 mls/ hr IV.CONT TITRATE PRN Rx#: [id number] LR 1000 mL Inj 1,000 ML @ 100 1000 / 1000 1000 / 1000 mls/hr IV.CONT .Q10H ADAM Rx#: [id number] Azactam Inj 1,000 MG In NS Inj 100 / 100 200 / 200 100 ML @ 200 mls/hr IV.SIG Q8H ADAM Rx#:[id number] Maxipime Inj 2,000 MG In NS Inj 100 / 100 100 ML @ 200 mls/hr IV.SIG Q12H [facility] Rx#:[id number] Vancomycin Inj 1,500 MG In NS 515 / 515 Inj 500 ML @ 250 mls/hr IV.SIG Q24H [facility] Rx#:[id number] fentaNYL 10 mcg/mL Premix Drip 250 / 250 250 / 250 2,500 mcg In 250 ml @ 50 MCG/HR 5 mls/hr IV.SIG TITRATE PRN Rx #:[id number] Tube Feeding 106 / 106 107 / 107 Tube Irrigant 240 / 240 Output: Urine Amount (Catheter) 1000 / 1000 600 / 600 Indwelling Urethral Catheter 1000 / 1000 600 / 600 Wound Drainage 130 / 130 Posterior Lumbar 130 / 130 Other: Date of Last Bowel Movement 10/10/18 10/16/18 10/16/18 # Bowel Movements 1 Narrative: Physical examination GENERAL: Patient is a well-nourished, well-developed male, awake, not interacting, on the vent, not in respiratory distress. he has this intermittent movement of his head with grimacing SKIN: Cool and dry. Has scattered papular rash in his trunk, and his lower extremity. According to the nurse this is improved compared to yesterday. No ecchymoses. HEAD: Atraumatic. Normocephalic. No temporal wasting, or tenderness. EYES: [place] conjunctiva. No petechia or hemorrhage. Pupils equal, round and reactive to light. Extraocular movements full and intact. No scleral icterus. No injection or drainage. EARS, NOSE AND THROAT: Nose without bleeding or purulent nasal discharge. Slightly dry oral mucosa NECK: Tracheostomy site looks ok CARDIOVASCULAR: Regular rate and rhythm. No murmurs, rubs or gallops heard RESPIRATORY: Coarse breath sounds bilaterally, decreased at the bases. ABDOMEN: Soft, globular, non-tender, nondistended. Bowel sounds present and normoactive. No guarding. No rebound. No organomegaly. EXTREMITIES: No clubbing, cyanosis. Has bilateral pedal edema. Well perfused and warm. BACK: Dressing in place, lumbar drain in place with blood tinged CSF NEUROLOGICAL: Awake, not following commands. NOt tracking PSYCHIATRIC: Unable to assess LINE: No evidence of infection Results - Labs CBC & Chem 7: 10/15/18 08:25 10/15/18 08:25 - Imaging Lumbar Spine X-Ray 10/04/18 00:00 CONCLUSION: Lumbar Puncture Fluoroscopy 10/09/18 00:00 CONCLUSION: 1. Uncomplicated lumbar drain placement as above. Lumbar Spine MRI 10/09/18 00:00 CONCLUSION: 1. Significant improvement in the postoperative appearance of the spine with good decompression at L2-3. There is no significant thecal sac impingement. 2. Moderate facet disease is seen in the fused levels stable interval. Thoracic Spine MRI 10/09/18 00:00 CONCLUSION: 1. Significant cervical spinal stenosis, not evaluated on this exam. 2. There is no intrathoracic cord compression. 3. Conus is unremarkable. Chest X-Ray 10/13/18 04:00 CONCLUSION: Decreased bilateral pulmonary opacity. Likely represents decreased pulmonary edema. Assessment and Plan - Plan Impression Recurrent CSF leak, S/P surgery x2 for leak, last surgery 10/14 Drug eruption, better, likely from Cefepime Recurrent respiratory failure Encephalopathy Recommendation Continue IV Azactam, increase dose Continue Vanco Follow new CSf cultures Follow rash MOnitor progress Weaning per CCM I will follow along with you Thank you for this consultation Spoke with Dr Peter D/W RN
--- NOTE | 2018-10-16 12:32 | MB ---
cc: Vinnie Hamilton MD DATE: 10/16/2018 HISTORY OF PRESENT ILLNESS: The patient was admitted on 10/02/2018 and seen in the ER. He had been transferred from [facility] for a neurosurgery consult. He woke up at 5:30 in the morning with complete numbness and weakness in the bilateral lower extremities. He was trying to get out of bed and fell on his face. He had numbness and weakness. It seemed to be better after 2 hours, but still some numbness in bilateral thighs. It seemed like strength got better. He had leg cramping. History of chronic low back pain, status post surgery in the low back. CT scan showed possible hemorrhage, left level L2-L3. PAST MEDICAL HISTORY: Colonic polyp, GERD, hypertension, neuropathy, osteoarthritis, prostate cancer, history of endarterectomy. REVIEW OF SYSTEMS: Unable to obtain from the patient. He was seen by neurosurgery. He had heard a pop prior to his legs going out. MRI showed a large herniated disk at L2-L3, one level from his prior surgery. He had instability with flexion and extension films. He did not have any bowel or bladder problems. He had full strength in bed, but could not bear weight. Sensation was intact, though he said he had diminished sensation in his legs. He then went for surgery. It looks like he had surgery on 10/06/2018. Postop MRI, significant improvement in the disk in the LS spine. He had a thoracic MRI done which was negative. On the localizer film, it looks like he has some diffuse DJD and some bulging disks in the cervical spine, but no definite major cord compression, although, again, it is not optimal because it is just a localizer film. Nevertheless, the patient has been shaking his head back and forth for about a week and not following commands. He is still on Precedex and fentanyl. I am asked to see him for the same. MEDICATIONS AT HOME: He was on: 1. Meloxicam. 2. Protonix. 3. Citalopram 20 a day. 4. Gabapentin 300 b.i.d. 5. Depakote 1500 a day. 6. Aspirin. 7. Mobic. 8. Multivitamin. CURRENT MEDICATIONS: He is on: 1. Aztreonam. 2. Benadryl. 3. Depakote 500 b.i.d. 4. Pepcid. 5. Fentanyl. 6. Lasix. 7. Ativan p.r.n. He did get 0.5 mg this morning. 8. Morphine. He has not gotten that in a few days. 9. Vancomycin. 10. Seroquel 50 b.i.d. 11. Geodon p.r.n. He got some yesterday, 20 mg IM. The patient had a CSF leak afterwards and a drain was placed. Sample was sent off. Infectious disease was consulted today. He had a rash. They thought he had a recurrent CSF leak. Two surgeries for the leak. A drug eruption. They continued the antibiotics. PHYSICAL EXAMINATION: VITAL SIGNS: He has not been running a fever, 154/54, 16, 60, sinus rhythm. NECK: There are no carotid bruits. HEART: Regular rate and rhythm. I do not detect a murmur. NEUROLOGIC: The pupils are equal. He does not react to threat. He shakes his head back and forth. He will not follow any commands. At first, I thought he had a little bit of left ankle clonus, but not currently. Toes are mute. Flaccid in all the upper extremities, although the nurse tells me at times he will spontaneously move his arms. I cannot get him to move them now and they appear to be flaccid. He is areflexic throughout. LABORATORY DATA: As noted, the MRIs. CBC is normal. CSF was clear with only 5 white cells, 70% lymphocytes, normal protein and glucose. Basic metabolic profile, creatinine is 1.4, which has been fairly stable since he has been here. LFTs normal. Blood gas of 7.27, 55 and 57 at one time and then 7.38, 39 and 74. Sometimes, he has had a very low ABG of 7.22 back on 10/05/2018. Coags have been normal. Depakote level 9. IMPRESSION: Encephalopathy. It is unclear if he can move below the neck or not. I think it is worth getting an MRI of the cervical spine and brain along with an EEG. Would recheck a blood gas on him and some additional blood work. I am going to have the nurse stop his sedatives now and see if he can follow any commands. I will be following him while he is in the hospital. The head moving back and forth seems to be more like a no-no type response from him and does not appear to be seizure activity. MD JILLIAN Lord/holly , 11:59 AM , 12:09 PM
[2018-10-16] MEDS: Vancomycin Inj 1,500 MG in Sodium Chlor 0.9% Inj 500 ML IV.SIG SCH (12:36)
[2018-10-16 12:37] LABS: ABG Base Excess -2.9 mmol/L (-2-2); ABG PCO2 32 mmHg (38-42); ABG PO2 78 mmHg (61-120)
[2018-10-16 13:14] LABS: Basophils,CSF 1 %; Lymphocytes, CSF 10 %; Monocytes,CSF 10 %; Neutrophils,CSF 73 %; RBC on Tube 1 2187 /mm3
[2018-10-16] MEDS: hydrALAZINE HCl Inj 20 MG/ML Vial IV.PUSH PRN (13:20)
[2018-10-16] MEDS: Propofol 1000 mg/100 ml Inj 1,000 MG/100 ML BOTTLE IV.CONT PRN (13:25)
[2018-10-16 13:30] LABS: Total Protein,CSF 133.4 mg/dL (15.0-45.0)
[2018-10-16 15:00] LABS: Free T4 (Free Thyroxine) 1.26 ng/dL (0.76-1.46); Thyroid Stimulating Hormone 1.56 uIU/mL (0.358-3.740)
[2018-10-16] MEDS ORDERED: Gadobutrol PF 10 MMOL/10 ML Vial (for RAD) IV.SIG ONE (15:09)
--- NOTE | 2018-10-16 15:15 | MR ---
EXAM DATE: 10/16/2018 3:06 PM EST AGE/SEX: 73 years / Male INDICATIONS: Myelopathy. CLINICAL DATA: This is the patient's initial encounter. Patient reports that signs and symptoms have been present for 1 day and indicates a pain score of 0/10. MEDICAL/SURGICAL HISTORY: Carcinoma, prostatic. Discectomy, lumbar. Fusion, lumbar. COMPARISON: [facility] [place], MR THORACIC SPINE W & W/O CON, 10/09/2018. . TECHNIQUE: Multiplanar, multisequence MRI examination of the cervical spine was performed without co ntrast. FINDINGS: Vertebrae: Normal vertebral body height. Homogeneous marrow signal. Alignment: Normal. Cord: Normal configuration and signal. Post Fossa: The cerebellar tonsils are normal in position. C2-C3: The thecal sac has a normal configuration. There is no evidence of disc herniation or spinal canal stenosis. The neural foramina are patent bilaterally. C3-C4: Mild undulating dorsal disc protrusion slightly flattening the ventral thecal sac. C4-C5: Minimal broad dorsal disc protrusion. No canal or foraminal compromise. C5-C6: Mild broad dorsal disc protrusion, minimally asymmetric to the left without significant canal or foraminal compromise. C6-C7: Minimal broad slightly left paracentral disc protrusion minimally indenting thecal sac. No ca nal or foraminal compromise. C7-T1: No epidural impressions seen. CONCLUSION: Mild spondylosis and disc disease. No significant canal or foraminal compromise. No explanation for m yelopathy. Electronically signed by: Blaise Barber MD 10/16/2018 3:13 PM EST
--- NOTE | 2018-10-16 15:29 | MR ---
EXAM DATE: 10/16/2018 3:23 PM EST AGE/SEX: 73 years / Male INDICATIONS: CVA. CLINICAL DATA: This is the patient's initial encounter. Patient reports that signs and symptoms have been present for 1 day and indicates a pain score of 0/10. MEDICAL/SURGICAL HISTORY: Carcinoma, prostatic. Fusion, lumbar. Carotid endarterectomy. Disce ctomy, lumbar. COMPARISON: No prior exams available for comparison. TECHNIQUE: Multiplanar, multisequence examination of the brain was performed without and with 9 ml Ga davist (gadobutrol) contrast as a single exam dose. FINDINGS: Cerebrum: The ventricles are normal for age. Mild cortical atrophy with slightly asymmetric promine nce of the bifrontal extra-axial sulcal spaces, right greater than left. No evidence of midline shift , mass lesion, hemorrhage or acute infarction. No extraaxial fluid collections are seen. The pituit vinh gland and suprasellar cistern are normal in configuration. White Matter: No significant signal abnormalities are seen in the white matter. Posterior Fossa: The cerebellum and brainstem are intact. The 4th ventricle is midline. The cerebel lopontine angle is unremarkable. The cerebellar tonsils are normal in position. Diffusion Imaging: No focal areas of restricted diffusion are seen. No evidence of acute infarction . Extracranial: The visualized portions of the orbits and paranasal sinuses are unremarkable. Moderate disease in the mastoid air cells bilaterally. Post Contrast: No abnormal areas of parenchymal or dural enhancement. No evidence of blood-brain ba rrier breakdown. CONCLUSION: No acute intracranial findings. Electronically signed by: Blaise Barber MD 10/16/2018 3:28 PM EST
--- NOTE | 2018-10-16 20:14 | MG ---
cc: Vinnie Hamilton MD ELECTROENCEPHALOGRAM NUMBER: [id number]. CLINICAL HISTORY: Some head shaking back and forth. MEDICATIONS: 1. Precedex. 2. Fentanyl. 3. Seroquel. 4. Ativan. DESCRIPTION: Low amplitude 7 Hz rhythm is seen. The head movements do not correlate with any seizure activity, just muscle artifact. Sometimes 8 Hz, 30 microvolt to 40 microvolt background is seen. Overall, recording is synchronous and symmetric. Photic stimulation is performed without significant posterior driving. Hyperventilation is not performed. IMPRESSION: Essentially normal electroencephalogram. Some feet jerking was noted, feet movement, the head jerking. None of these correlated with any seizure activity and basically this was a normal electroencephalogram considering the medications he is on. No hemisphere asymmetry is noted. No seizure activity is seen. Vinnie Hamilton MD DJM/ts , 07:20 PM , 07:25 PM
[2018-10-16] MEDS: Sodium Chloride 0.9% 2 ML Flush PRN IV.FLUSH (22:00)
[2018-10-16] MEDS: QUEtiapine 100 MG Tablet PO SCH (22:00)
[2018-10-17] MEDS: fentaNYL 10 mcg/mL Premix Drip 2,500 MCG/250 ML BAG IV.SIG PRN (00:08)
[2018-10-17] MEDS: Oral Hygiene Kit OROPHARYNG SCH ×5 (00:09→23:27)
[2018-10-17] MEDS: DEXMEDETOMIDINE IV.CONT PRN ×2 (00:37→06:33)
[2018-10-17] MEDS: SODIUM CHLOR 0.9% IV.CONT PRN ×2 (00:37→06:33)
[2018-10-17 04:11] LABS: Baso % (Auto) 0.3 % (0.0-2.0); Eos # (Auto) 0.2 th/mm3 (0.0-0.4); Lymph # (Auto) 0.7 th/mm3 (1.0-4.8); Lymph % (Auto) 9.3 % (9.0-44.0); Mean Corpuscular HGB Conc 32.7 % (32.0-36.0); Mean Corpuscular Hemoglobin 28.9 pg (27.0-34.0); Mean Corpuscular Volume 88.1 fL (80.0-100.0); Mean Platelet Volume 7.8 fL (7.0-11.0); Mono # (Auto) 0.7 th/mm3 (0.0-0.9); Mono % (Auto) 8.3 % (0.0-8.0); Neut # (Auto) 6.2 th/mm3 (1.8-7.7); Neut % (Auto) 79.1 % (16.0-70.0); Platelet Count 175 th/mm3 (150-450); Red Blood Count 2.37 mil/mm3 (4.50-5.90); Red Cell Distribution Width 19.6 % (11.6-17.2); White Blood Count 7.9 th/mm3 (4.0-11.0)
[2018-10-17] MEDS: hydrALAZINE HCl Inj 20 MG/ML Vial IV.PUSH PRN ×2 (04:12→13:27)
[2018-10-17 04:42] LABS: Alanine Aminotransferase 23 U/L (12-78); Albumin 1.6 g/dL (3.4-5.0); Alkaline Phosphatase 105 U/L (45-117); Anion Gap 10 meq/L (5-15); Aspartate Aminotransferase 33 U/L (15-37); Blood Urea Nitrogen 54 mg/dL (7-18); Calcium 8.9 mg/dL (8.5-10.1); Carbon Dioxide 22.5 meq/L (21.0-32.0); Chloride 115 meq/L (98-107); Glomerular Filtration Rate 50 mL/min (>89); Glucose,Random 127 mg/dL (74-106); Potassium 3.6 meq/L (3.5-5.1); Sodium 147 meq/L (136-145); Total Protein 5.5 g/dL (6.4-8.2)
[2018-10-17 04:43] LABS: Creatine Kinase 53 U/L (39-308); Hematocrit 20.9 % (39.0-51.0); Hemoglobin 6.8 gm/dL (13.0-17.0)
[2018-10-17 07:45] LABS: Ovalocytes 1+
[2018-10-17] MEDS: Chlorhexidine 0.12% Oral Kit 15 ML UDC OROPHARYNG SCH ×2 (08:57→20:42)
[2018-10-17] MEDS: QUEtiapine 100 MG Tablet PO SCH ×2 (08:57→20:43)
[2018-10-17] MEDS: Divalproex 125 MG Sprinkles Capsule PO SCH ×2 (08:58→20:42)
[2018-10-17] MEDS: Sodium Chloride 0.9% 2 ML Flush BID IV.FLUSH SCH ×2 (08:58→20:43)
[2018-10-17] MEDS: Famotidine PF Inj 20 MG/2 ML Vial IV.PUSH SCH ×2 (08:58→20:43)
[2018-10-17] MEDS: Senna/Docusate Sodium 8.6/50 MG Tablet PO SCH ×2 (08:59→20:43)
--- NOTE | 2018-10-17 09:43 | P.PNNEU ---
Subjective Active Medications: Active Medications Acetaminophen (Tylenol) 650 mg PO Q6H PRN PRN Reason: PAIN 1-10 AND/OR FEVER >101F Al Hydroxide/Mg Hydroxide (Milk Of Magnbecca Liq) 30 ml PO Q12H PRN PRN Reason: Mild Constipation Last Admin: 10/15/18 06:44 Dose: 30 ml Albuterol (Albuterol Neb (Prn)) 2.5 mg NEB Q2HR NEB PRN PRN Reason: SHORTNESS OF BREATH/WHEEZING Albuterol (Duoneb Neb (Adam)) 1 ampul NEB Q4HR NEB [facility] Last Admin: 10/17/18 07:52 Dose: 1 ampul Bisacodyl (Dulcolax Supp) 10 mg RECTAL DAILY PRN PRN Reason: SEVERE CONSITIPATION Last Admin: 10/16/18 00:38 Dose: 10 mg Chlordiazepoxide (Librium) 5 mg PO Q12H [facility] Last Admin: 10/17/18 08:59 Dose: 5 mg Chlorhexidine Gluconate (Peridex 0.12% Oral Kit) 15 ml OROPHARYNG BID@0800, 2000 [facility] Last Admin: 10/17/18 08:57 Dose: 15 ml Diphenhydramine HCl (Benadryl Inj) 25 mg IV.PUSH Q6HR [facility] Last Admin: 10/17/18 05:28 Dose: 25 mg Divalproex Sodium (Depakote Sprinkles) 500 mg PO BID [facility] Last Admin: 10/17/18 08:58 Dose: 500 mg Famotidine (Pepcid Pf Inj) 10 mg IV.PUSH Q12HR [facility] Last Admin: 10/17/18 08:58 Dose: 10 mg Furosemide (Lasix Inj) 40 mg IV.PUSH BID@0900,1800 [facility] Last Admin: 10/11/18 08:53 Dose: 40 mg Hydralazine HCl (Apresoline Inj) 20 mg IV.PUSH Q2H PRN PRN Reason: SBP > 160 Last Admin: 10/17/18 04:12 Dose: 20 mg Fentanyl (Fentanyl 10 Mcg/Ml Premix Drip) 2,500 mcg in 250 mls @ 5 mls/hr IV.SIG TITRATE PRN; Protocol PRN Reason: Per Protocol Last Titration: 10/17/18 09:37 Dose: 0 mcg/hr, 0 mls/hr Norepinephrine Bitartrate (Levophed-Dextrose 4 Mg/250 Ml Drip) 4 mg in 250 mls @ 7.5 mls/hr IV.SIG TITRATE PRN; Protocol PRN Reason: Per Protocol Last Titration: 10/11/18 07:00 Dose: 0 mcg/min, 0 mls/hr Propofol (Diprivan 1000 Mg/100 Ml Inj) 1,000 mg in 100 mls @ 2.835 mls/hr IV.CONT TITRATE PRN; Protocol PRN Reason: Per Protocol Last Titration: 10/16/18 19:00 Dose: 0 mcg/kg/min, 0 mls/hr Midazolam HCl (Versed Inj) 100 mg in 100 mls @ 2 mls/hr IV.CONT TITRATE PRN; Protocol PRN Reason: PER PROTOCOL Last Titration: 10/16/18 22:51 Dose: 0 mg/hr, 0 mls/hr Lactated Ringer's (Lr 1000 Ml Inj) 1,000 mls @ 100 mls/hr IV.CONT .Q10H [facility] Last Admin: 10/17/18 07:00 Dose: 50 mls/hr Vancomycin HCl 1,500 mg/ (Sodium Chloride) 515 mls @ 250 mls/hr IV.SIG Q24H [facility] Last Infusion: 10/16/18 14:40 Dose: Infused Aztreonam 2,000 mg/ Sodium (Chloride) 100 mls @ 200 mls/hr IV.SIG Q8H [facility] Last Infusion: 10/17/18 04:12 Dose: Infused Dexmedetomidine HCl 800 mcg/ (Sodium Chloride) 100 mls @ 2.29 mls/hr IV.CONT TITRATE PRN; Protocol PRN Reason: Per Protocol Last Titration: 10/17/18 09:36 Dose: 0 mcg/kg/hr, 0 mls/hr Lactulose (Lactulose Liq) 30 ml PO DAILY PRN PRN Reason: SEVERE CONSITIPATION Last Admin: 10/15/18 19:44 Dose: 30 ml Lorazepam (Ativan Inj) 0.5 mg IV.PUSH Q6H PRN PRN Reason: SEVERE AGITATION Last Admin: 10/16/18 05:03 Dose: 0.5 mg Miscellaneous (Pill Splitter) 1 each OTHER UNSCH PRN PRN Reason: PILL SPLITTER Miscellaneous Information ([facility] Ordered Lab Info) 0 each OTHER ONCE ONE Stop: 10/18/18 12:46 Miscellaneous Medication () 1 each OROPHARYNG 0000,0400,1200,1600 [facility] Last Admin: 10/17/18 03:42 Dose: 1 each Morphine Sulfate (Morphine Inj) 2 mg IV.PUSH Q4H PRN PRN Reason: 6-10 pain Last Admin: 10/07/18 21:47 Dose: 2 mg Oxycodone HCl (Roxicodone Intensol Liq) 10 mg PO Q6H [facility] Last Admin: 10/17/18 05:27 Dose: 10 mg Pharmacy Profile Note (Vancomycin Consult Pharmacy) 1 each OTHER UNSCH PRN PRN Reason: Pharmacy to dose Quetiapine Fumarate (Seroquel) 150 mg PO BID [facility] Last Admin: 10/17/18 08:57 Dose: 150 mg Senna/Docusate Sodium (Shazia-Colace) 1 tab PO BID [facility] Last Admin: 10/17/18 08:59 Dose: 1 tab Sennosides (Senokot) 17.2 mg PO Q12H PRN PRN Reason: Moderate Constipation Sodium Chloride (Ns Flush) 2 ml IV.FLUSH BID [facility] Last Admin: 10/17/18 08:58 Dose: 2 ml Sodium Chloride (Ns Flush) 2 ml IV.FLUSH PRN PRN PRN Reason: FLUSH AFTER USING IV ACCESS Last Admin: 10/16/18 22:00 Dose: 2 ml Terbutaline Sulfate (Brethine Inj) 1 mg SQ UNSCH PRN PRN Reason: For Extravasation Ziprasidone (Geodon Inj) 20 mg IM Q12H PRN PRN Reason: SEVERE AGITATION Last Admin: 10/15/18 23:35 Dose: 20 mg Allergies/Adverse Reactions: Allergies Allergy/AdvReac Type Severity Reaction Status Date / Time No Known Allergies Unknown Uncoded 10/27/17 16:04 Physical Exam Vital signs: Vital Signs 10/16/18 10:00 10/16/18 10:17 10/16/18 11:00 Temperature Pulse Rate 60 61 Respiratory Rate 16 18 3 L Pulse Oximetry 96 95 95 10/16/18 11:16 10/16/18 12:00 10/16/18 13:00 Temperature 97.8 F Pulse Rate 55 L 58 L 67 Respiratory Rate 17 17 19 Pulse Oximetry 95 95 10/16/18 13:38 10/16/18 14:00 10/16/18 15:25 Temperature Pulse Rate 73 Respiratory Rate 21 23 Pulse Oximetry 90 L 93 L 100 10/16/18 15:39 10/16/18 16:00 10/16/18 16:19 Temperature 98.5 F Pulse Rate 87 81 Respiratory Rate 18 14 14 Pulse Oximetry 96 97 10/16/18 17:00 10/16/18 18:00 10/16/18 19:00 Temperature 98.6 F Pulse Rate 103 H 69 52 L Respiratory Rate 32 H 17 14 Pulse Oximetry 100 97 100 10/16/18 19:24 10/16/18 19:26 10/16/18 20:00 Temperature Pulse Rate 56 L 73 Respiratory Rate 14 14 15 Pulse Oximetry 97 97 10/16/18 21:00 10/16/18 22:00 10/16/18 23:00 Temperature Pulse Rate 61 55 L 52 L Respiratory Rate 13 19 15 Pulse Oximetry 93 L 93 L 94 L 10/16/18 23:08 10/16/18 23:10 10/17/18 00:00 Temperature 98.6 F Pulse Rate 52 L 89 Respiratory Rate 14 15 27 H Pulse Oximetry 94 L 96 10/17/18 01:00 10/17/18 01:57 10/17/18 02:00 Temperature Pulse Rate 66 69 Respiratory Rate 14 16 20 Pulse Oximetry 98 98 98 10/17/18 03:00 10/17/18 03:07 10/17/18 04:00 Temperature 98.8 F Pulse Rate 51 L 54 L 74 Respiratory Rate 15 15 17 Pulse Oximetry 96 99 10/17/18 05:00 10/17/18 05:02 10/17/18 06:00 Temperature 98.8 F Pulse Rate 94 H 93 H 92 H Respiratory Rate 24 23 22 Pulse Oximetry 95 94 L 100 10/17/18 07:00 10/17/18 08:00 10/17/18 08:05 Temperature 98.4 F Pulse Rate 80 79 Respiratory Rate 14 14 16 Pulse Oximetry 100 100 97 10/17/18 09:00 Temperature Pulse Rate Respiratory Rate 14 Pulse Oximetry 96 Intake & Output 10/16/18 10/17/18 10/17/18 18:59 06:59 18:59 Intake Total 1222 / 1222 1672 / 1672 1000 / 1000 Output Total 1085 / 1085 760 / 760 Balance 137 / 137 912 / 912 1000 / 1000 Weight 97.4 kg Intake: IV 765 / 765 700 / 700 1000 / 1000 Precedex Inj 800 MCG In NS Inj 100 / 100 92 ML @ 0.2 MCG/KG/HR 2.29 mls/ hr IV.CONT TITRATE PRN Rx#: [id number] Precedex Inj 200 MCG In NS Inj 150 / 150 150 / 150 48 ML @ 0.2 MCG/KG/HR 4.58 mls/ hr IV.CONT TITRATE PRN Rx#: [id number] LR 1000 mL Inj 1,000 ML @ 100 1000 / 1000 mls/hr IV.CONT .Q10H [facility] Rx#: [id number] Azactam Inj 2,000 MG In NS Inj 100 / 100 200 / 200 100 ML @ 200 mls/hr IV.SIG Q8H [facility] Rx#:[id number] Vancomycin Inj 1,500 MG In NS 515 / 515 Inj 500 ML @ 250 mls/hr IV.SIG Q24H [facility] Rx#:[id number] fentaNYL 10 mcg/mL Premix Drip 250 / 250 2,500 mcg In 250 ml @ 50 MCG/HR 5 mls/hr IV.SIG TITRATE PRN Rx #:[id number] Tube Feeding 337 / 337 322 / 322 Tube Irrigant 120 / 120 Other 250 / 250 Rbc As-3 Leukoreduced Unit 250 / 250 [id number] Intake (Blood Product) Amt 400 / 400 Rbc As-3 Leukoreduced Unit 400 / 400 [id number] Output: Urine Amount (Catheter) 1000 / 1000 700 / 700 Indwelling Urethral Catheter 1000 / 1000 700 / 700 Wound Drainage 85 / 85 60 / 60 Posterior Lumbar 85 / 85 60 / 60 Other: Date of Last Bowel Movement 10/16/18 10/16/18 10/16/18 # Bowel Movements 0 Narrative: on sedatives no rxt threat non responsive shakes head nurse states seen moving bue - Urinary Catheter Management Indwelling Urethral Catheter Cath placed during this visit: yes Reason for continuing: Hourly intake/output Insertion date: 10/02/18 Insertion time: 20:32 Objective Laboratory Results - last 24 hr 10/14/18 10/16/18 10/16/18 12:22 10:18 10:18 WBC RBC Hgb Hct MCV MCH MCHC RDW Plt Count MPV Prelim Diff (Auto) Neut % (Auto) Lymph % (Auto) [place] % (Auto) Eos % (Auto) Baso % (Auto) Neut # (Auto) Lymph # (Auto) [place] # (Auto) Eos # (Auto) Baso # (Auto) WBC Differential Diff Scan Differential Comment Ovalocytes ESR Puncture Site Patient Temperature O2 Saturation ABG pH ABG pCO2 ABG pO2 ABG HCO3 ABG O2 Content ABG Base Excess ABG Methemoglobin Jorge Luis Test Hemoglobin Carboxyhemoglobin O2 Delivery Device Vent Setting Inspired O2 Critical Value Sodium Potassium Chloride Carbon Dioxide Anion Gap BUN Creatinine Estimated GFR Random Glucose Calcium Total Bilirubin AST ALT Alkaline Phosphatase Ammonia Total Creatine Kinase Total Protein Albumin Vitamin B12 TSH Free T4 CSF Volume (1) 8.5 CSF Supernat Color (1) Slightly xanthochrom A CSF Gross Blood (1) 1+ A CSF WBC (1) 60 H CSF RBC (1) 2187 H CSF Neutrophils % 73 CSF Lymphocytes % 10 CSF Monocytes % 10 CSF Basophils % 1 CSF Histiocytes 6 CSF Glucose 66 CSF Total Protein 133.4 H MTS Gel Crossmatch See Detail 10/16/18 10/16/18 10/16/18 12:30 14:05 14:05 WBC RBC Hgb Hct MCV MCH MCHC RDW Plt Count MPV Prelim Diff (Auto) Neut % (Auto) Lymph % (Auto) [place] % (Auto) Eos % (Auto) Baso % (Auto) Neut # (Auto) Lymph # (Auto) [place] # (Auto) Eos # (Auto) Baso # (Auto) WBC Differential Diff Scan Differential Comment Ovalocytes ESR Greater than 140 H Puncture Site Art line Patient Temperature 98.6 O2 Saturation 93 ABG pH 7.43 H ABG pCO2 32 L ABG pO2 78 ABG HCO3 21 L ABG O2 Content 10.2 L ABG Base Excess -2.9 L ABG Methemoglobin 1.2 Jorge Luis Test Present Hemoglobin 7.7 L* Carboxyhemoglobin 1.9 O2 Delivery Device Ventilator Vent Setting Cpap/5peep/10ps Inspired O2 35 Critical Value Yes Sodium Potassium Chloride Carbon Dioxide Anion Gap BUN Creatinine Estimated GFR Random Glucose Calcium Total Bilirubin AST ALT Alkaline Phosphatase Ammonia 22 Total Creatine Kinase Total Protein Albumin Vitamin B12 TSH Free T4 CSF Volume (1) CSF Supernat Color (1) CSF Gross Blood (1) CSF WBC (1) CSF RBC (1) CSF Neutrophils % CSF Lymphocytes % CSF Monocytes % CSF Basophils % CSF Histiocytes CSF Glucose CSF Total Protein MTS Gel Crossmatch 10/16/18 10/17/18 10/17/18 14:05 04:05 04:05 WBC 7.9 RBC 2.37 L Hgb 6.8 L* Hct 20.9 L* MCV 88.1 MCH 28.9 MCHC 32.7 RDW 19.6 H Plt Count 175 MPV 7.8 Prelim Diff (Auto) Slide review pending Neut % (Auto) 79.1 H Lymph % (Auto) 9.3 [place] % (Auto) 8.3 H Eos % (Auto) 3.0 Baso % (Auto) 0.3 Neut # (Auto) 6.2 Lymph # (Auto) 0.7 L [place] # (Auto) 0.7 Eos # (Auto) 0.2 Baso # (Auto) 0.0 WBC Differential . Diff Scan Auto diff confirmed Differential Comment . Ovalocytes 1+ H ESR Puncture Site Patient Temperature O2 Saturation ABG pH ABG pCO2 ABG pO2 ABG HCO3 ABG O2 Content ABG Base Excess ABG Methemoglobin Jorge Luis Test Hemoglobin Carboxyhemoglobin O2 Delivery Device Vent Setting Inspired O2 Critical Value Sodium 147 H Potassium 3.6 D Chloride 115 H Carbon Dioxide 22.5 Anion Gap 10 BUN 54 H Creatinine 1.38 H Estimated GFR 50 L Random Glucose 127 H Calcium 8.9 Total Bilirubin 0.3 AST 33 ALT 23 Alkaline Phosphatase 105 Ammonia Total Creatine Kinase 53 Total Protein 5.5 L Albumin 1.6 L Vitamin B12 1791 H TSH 1.560 1.870 Free T4 1.26 CSF Volume (1) CSF Supernat Color (1) CSF Gross Blood (1) CSF WBC (1) CSF RBC (1) CSF Neutrophils % CSF Lymphocytes % CSF Monocytes % CSF Basophils % CSF Histiocytes CSF Glucose CSF Total Protein MTS Gel Crossmatch 10/17/18 04:52 WBC RBC Hgb Hct MCV MCH MCHC RDW Plt Count MPV Prelim Diff (Auto) Neut % (Auto) Lymph % (Auto) [place] % (Auto) Eos % (Auto) Baso % (Auto) Neut # (Auto) Lymph # (Auto) [place] # (Auto) Eos # (Auto) Baso # (Auto) WBC Differential Diff Scan Differential Comment Ovalocytes ESR Puncture Site Patient Temperature O2 Saturation ABG pH ABG pCO2 ABG pO2 ABG HCO3 ABG O2 Content ABG Base Excess ABG Methemoglobin Jorge Luis Test Hemoglobin Carboxyhemoglobin O2 Delivery Device Vent Setting Inspired O2 Critical Value Sodium Potassium Chloride Carbon Dioxide Anion Gap BUN Creatinine Estimated GFR Random Glucose Calcium Total Bilirubin AST ALT Alkaline Phosphatase Ammonia Total Creatine Kinase Total Protein Albumin Vitamin B12 TSH Free T4 CSF Volume (1) CSF Supernat Color (1) CSF Gross Blood (1) CSF WBC (1) CSF RBC (1) CSF Neutrophils % CSF Lymphocytes % CSF Monocytes % CSF Basophils % CSF Histiocytes CSF Glucose CSF Total Protein MTS Gel Crossmatch See Detail Microbiology 10/14/18 13:51 Gram Stain - Final Tissue - Other Wound Culture - Final No growth in 72 hours (aerobically and anaerobically) 10/14/18 13:51 Gram Stain - Final Wound - Back Wound Culture - Final No growth in 72 hours (aerobically and anaerobically) 10/14/18 13:51 Acid Fast Bacilli Smear - Final Tissue - Other No acid fast bacilli seen 10/14/18 13:51 Acid Fast Bacilli Smear - Final Wound - Back No acid fast bacilli seen 10/16/18 10:18 Gram Stain - Final Lumbar Puncture Review/Management - Review/Management Plan: imp mri braina nd c spine neg abg nh3 labs ok eeg neg i think if we keep off sedatives should awaken and do ok
[2018-10-17 09:56] LABS: Hematocrit 22.4 % (39.0-51.0); Hemoglobin 7.7 gm/dL (13.0-17.0)
--- NOTE | 2018-10-17 11:01 | P.CONGI ---
History of Present Illness Consult date: 10/17/18 Consult reason: Peg placement Chief complaint: Spinal Hematoma History of Present Illness: Patient is a 73-year-old male with past medical history significant for hypertension, COPD, prostate carcinoma and lumbar laminectomy. Surgical history includes endarterectomy. Patient was transferred from [facility] to [facility] for evaluation of acute onset of bilateral lower extremity weakness. CT of the lumbar spine revealed attenuation in the ventral epidural space L2-L3 suspicious for large disc extrusion with spinal canal stenosis. Patient has tracheostomy and is ventilated. Patient has lumbar drain present draining cerebrospinal fluid. NG tube present and clamped at this time Our service has been consulted to evaluate patient for PEG tube placement. <Imelda Alvarez - Last Filed: 10/17/18 11:01> Review of Systems unobtainable due to endotracheal tube, other <Imelda Alvarez - Last Filed: 10/17/18 11:01> PMFSH - History History Provided By: Patient - Medical History Medical History: Medical History (Last Reviewed 10/16/18 @ 11:00 by Jelly Jeronimo MD) Back pain Colonic polyp GERD (gastroesophageal reflux disease) Hypertension Neuropathy Osteoarthritis Prostate carcinoma - Surgical History Surgical History: Surgical History (Last Reviewed 10/16/18 @ 11:00 by Jelly Jeronimo MD) Hx of endarterectomy - Tobacco History Second Hand Smoke Exposure: Yes Tobacco Use In Past 30 Days: Yes Smoking Status: Smoker, status unknown Tobacco Type: Cigarettes - Alcohol History How Often Do You Have a Drink Containing Alcohol: Unable to Obtain - Substance Use History Substance History: No History of Abuse - Travel History Recent Travel in the [place] Within the Last 8 Weeks: No Recent Travel Out of the Country Within the Last 8 Weeks: No - Immunization History Tetanus Immunization: Unsure Hx Influenza Vaccine This Season: Unable to Assess <Imelda Alvarez - Last Filed: 10/17/18 11:01> - Medical History Medical History: Medical History (Last Reviewed 10/16/18 @ 11:00 by Jelly Jeronimo MD) Back pain Colonic polyp GERD (gastroesophageal reflux disease) Hypertension Neuropathy Osteoarthritis Prostate carcinoma - Surgical History Surgical History: Surgical History (Last Reviewed 10/16/18 @ 11:00 by Jelly Jeronimo MD) Hx of endarterectomy <Roxanna Rubin - Last Filed: 10/17/18 14:06> Medications and Allergies Active Medications: Active Medications Acetaminophen (Tylenol) 650 mg PO Q6H PRN PRN Reason: PAIN 1-10 AND/OR FEVER >101F Al Hydroxide/Mg Hydroxide (Milk Of Magnesia Liq) 30 ml PO Q12H PRN PRN Reason: Mild Constipation Last Admin: 10/15/18 06:44 Dose: 30 ml Albuterol (Albuterol Neb (Prn)) 2.5 mg NEB Q2HR NEB PRN PRN Reason: SHORTNESS OF BREATH/WHEEZING Albuterol (Duoneb Neb (Adam)) 1 ampul NEB Q4HR NEB ADAM Last Admin: 10/17/18 07:52 Dose: 1 ampul Bisacodyl (Dulcolax Supp) 10 mg RECTAL DAILY PRN PRN Reason: SEVERE CONSITIPATION Last Admin: 10/16/18 00:38 Dose: 10 mg Chlordiazepoxide (Librium) 5 mg PO Q12H [facility] Last Admin: 10/17/18 08:59 Dose: 5 mg Chlorhexidine Gluconate (Peridex 0.12% Oral Kit) 15 ml OROPHARYNG BID@0800, 2000 [facility] Last Admin: 10/17/18 08:57 Dose: 15 ml Diphenhydramine HCl (Benadryl Inj) 25 mg IV.PUSH Q6HR [facility] Last Admin: 10/17/18 05:28 Dose: 25 mg Divalproex Sodium (Depakote Sprinkles) 500 mg PO BID [facility] Last Admin: 10/17/18 08:58 Dose: 500 mg Famotidine (Pepcid Pf Inj) 10 mg IV.PUSH Q12HR [facility] Last Admin: 10/17/18 08:58 Dose: 10 mg Furosemide (Lasix Inj) 40 mg IV.PUSH BID@0900,1800 [facility] Last Admin: 10/11/18 08:53 Dose: 40 mg Hydralazine HCl (Apresoline Inj) 20 mg IV.PUSH Q2H PRN PRN Reason: SBP > 160 Last Admin: 10/17/18 04:12 Dose: 20 mg Fentanyl (Fentanyl 10 Mcg/Ml Premix Drip) 2,500 mcg in 250 mls @ 5 mls/hr IV.SIG TITRATE PRN; Protocol PRN Reason: Per Protocol Last Titration: 10/17/18 09:37 Dose: 0 mcg/hr, 0 mls/hr Norepinephrine Bitartrate (Levophed-Dextrose 4 Mg/250 Ml Drip) 4 mg in 250 mls @ 7.5 mls/hr IV.SIG TITRATE PRN; Protocol PRN Reason: Per Protocol Last Titration: 10/11/18 07:00 Dose: 0 mcg/min, 0 mls/hr Propofol (Diprivan 1000 Mg/100 Ml Inj) 1,000 mg in 100 mls @ 2.835 mls/hr IV.CONT TITRATE PRN; Protocol PRN Reason: Per Protocol Last Titration: 10/16/18 19:00 Dose: 0 mcg/kg/min, 0 mls/hr Midazolam HCl (Versed Inj) 100 mg in 100 mls @ 2 mls/hr IV.CONT TITRATE PRN; Protocol PRN Reason: PER PROTOCOL Last Titration: 10/16/18 22:51 Dose: 0 mg/hr, 0 mls/hr Lactated Ringer's (Lr 1000 Ml Inj) 1,000 mls @ 100 mls/hr IV.CONT .Q10H [facility] Last Admin: 10/17/18 07:00 Dose: 50 mls/hr Vancomycin HCl 1,500 mg/ (Sodium Chloride) 515 mls @ 250 mls/hr IV.SIG Q24H [facility] Last Infusion: 10/16/18 14:40 Dose: Infused Aztreonam 2,000 mg/ Sodium (Chloride) 100 mls @ 200 mls/hr IV.SIG Q8H [facility] Last Infusion: 10/17/18 04:12 Dose: Infused Dexmedetomidine HCl 800 mcg/ (Sodium Chloride) 100 mls @ 2.29 mls/hr IV.CONT TITRATE PRN; Protocol PRN Reason: Per Protocol Last Titration: 10/17/18 09:36 Dose: 0 mcg/kg/hr, 0 mls/hr Lactulose (Lactulose Liq) 30 ml PO DAILY PRN PRN Reason: SEVERE CONSITIPATION Last Admin: 10/15/18 19:44 Dose: 30 ml Lorazepam (Ativan Inj) 0.5 mg IV.PUSH Q6H PRN PRN Reason: SEVERE AGITATION Last Admin: 10/16/18 05:03 Dose: 0.5 mg Miscellaneous (Pill Splitter) 1 each OTHER UNSCH PRN PRN Reason: PILL SPLITTER Miscellaneous Information ([facility] Ordered Lab Info) 0 each OTHER ONCE ONE Stop: 10/18/18 12:46 Miscellaneous Medication () 1 each OROPHARYNG 0000,0400,1200,1600 [facility] Last Admin: 10/17/18 03:42 Dose: 1 each Morphine Sulfate (Morphine Inj) 2 mg IV.PUSH Q4H PRN PRN Reason: 6-10 pain Last Admin: 10/07/18 21:47 Dose: 2 mg Oxycodone HCl (Roxicodone Intensol Liq) 10 mg PO Q6H [facility] Last Admin: 10/17/18 05:27 Dose: 10 mg Pharmacy Profile Note (Vancomycin Consult Pharmacy) 1 each OTHER UNSCH PRN PRN Reason: Pharmacy to dose Quetiapine Fumarate (Seroquel) 150 mg PO BID [facility] Last Admin: 10/17/18 08:57 Dose: 150 mg Senna/Docusate Sodium (Shazia-Colace) 1 tab PO BID [facility] Last Admin: 10/17/18 08:59 Dose: 1 tab Sennosides (Senokot) 17.2 mg PO Q12H PRN PRN Reason: Moderate Constipation Sodium Chloride (Ns Flush) 2 ml IV.FLUSH BID [facility] Last Admin: 10/17/18 08:58 Dose: 2 ml Sodium Chloride (Ns Flush) 2 ml IV.FLUSH PRN PRN PRN Reason: FLUSH AFTER USING IV ACCESS Last Admin: 10/16/18 22:00 Dose: 2 ml Terbutaline Sulfate (Brethine Inj) 1 mg SQ UNSCH PRN PRN Reason: For Extravasation Ziprasidone (Geodon Inj) 20 mg IM Q12H PRN PRN Reason: SEVERE AGITATION Last Admin: 10/15/18 23:35 Dose: 20 mg <Imelda Alvarez - Last Filed: 10/17/18 11:01> Active Medications: Active Medications Acetaminophen (Tylenol) 650 mg PO Q6H PRN PRN Reason: PAIN 1-10 AND/OR FEVER >101F Al Hydroxide/Mg Hydroxide (Milk Of Magnesia Liq) 30 ml PO Q12H PRN PRN Reason: Mild Constipation Last Admin: 10/15/18 06:44 Dose: 30 ml Albuterol (Albuterol Neb (Prn)) 2.5 mg NEB Q2HR NEB PRN PRN Reason: SHORTNESS OF BREATH/WHEEZING Albuterol (Duoneb Neb ([facility])) 1 ampul NEB Q4HR NEB [facility] Last Admin: 10/17/18 11:56 Dose: 1 ampul Bisacodyl (Dulcolax Supp) 10 mg RECTAL DAILY PRN PRN Reason: SEVERE CONSITIPATION Last Admin: 10/16/18 00:38 Dose: 10 mg Chlordiazepoxide (Librium) 5 mg PO Q12H [facility] Last Admin: 10/17/18 08:59 Dose: 5 mg Chlorhexidine Gluconate (Peridex 0.12% Oral Kit) 15 ml OROPHARYNG BID@0800, 2000 [facility] Last Admin: 10/17/18 08:57 Dose: 15 ml Diphenhydramine HCl (Benadryl Inj) 25 mg IV.PUSH Q6HR [facility] Last Admin: 10/17/18 11:12 Dose: 25 mg Divalproex Sodium (Depakote Sprinkles) 500 mg PO BID [facility] Last Admin: 10/17/18 08:58 Dose: 500 mg Famotidine (Pepcid Pf Inj) 10 mg IV.PUSH Q12HR [facility] Last Admin: 10/17/18 08:58 Dose: 10 mg Furosemide (Lasix Inj) 40 mg IV.PUSH BID@0900,1800 [facility] Last Admin: 10/11/18 08:53 Dose: 40 mg Hydralazine HCl (Apresoline Inj) 20 mg IV.PUSH Q2H PRN PRN Reason: SBP > 160 Last Admin: 10/17/18 13:27 Dose: 20 mg Fentanyl (Fentanyl 10 Mcg/Ml Premix Drip) 2,500 mcg in 250 mls @ 5 mls/hr IV.SIG TITRATE PRN; Protocol PRN Reason: Per Protocol Last Titration: 10/17/18 09:37 Dose: 0 mcg/hr, 0 mls/hr Norepinephrine Bitartrate (Levophed-Dextrose 4 Mg/250 Ml Drip) 4 mg in 250 mls @ 7.5 mls/hr IV.SIG TITRATE PRN; Protocol PRN Reason: Per Protocol Last Titration: 10/11/18 07:00 Dose: 0 mcg/min, 0 mls/hr Propofol (Diprivan 1000 Mg/100 Ml Inj) 1,000 mg in 100 mls @ 2.835 mls/hr IV.CONT TITRATE PRN; Protocol PRN Reason: Per Protocol Last Titration: 10/16/18 19:00 Dose: 0 mcg/kg/min, 0 mls/hr Midazolam HCl (Versed Inj) 100 mg in 100 mls @ 2 mls/hr IV.CONT TITRATE PRN; Protocol PRN Reason: PER PROTOCOL Last Titration: 10/16/18 22:51 Dose: 0 mg/hr, 0 mls/hr Lactated Ringer's (Lr 1000 Ml Inj) 1,000 mls @ 100 mls/hr IV.CONT .Q10H [facility] Last Admin: 10/17/18 13:41 Dose: 50 mls/hr Vancomycin HCl 1,500 mg/ (Sodium Chloride) 515 mls @ 250 mls/hr IV.SIG Q24H [facility] Last Admin: 10/17/18 12:04 Dose: 250 mls/hr Aztreonam 2,000 mg/ Sodium (Chloride) 100 mls @ 200 mls/hr IV.SIG Q8H [facility] Last Infusion: 10/17/18 11:41 Dose: Infused Dexmedetomidine HCl 800 mcg/ (Sodium Chloride) 100 mls @ 2.29 mls/hr IV.CONT TITRATE PRN; Protocol PRN Reason: Per Protocol Last Titration: 10/17/18 09:36 Dose: 0 mcg/kg/hr, 0 mls/hr Lactulose (Lactulose Liq) 30 ml PO DAILY PRN PRN Reason: SEVERE CONSITIPATION Last Admin: 10/15/18 19:44 Dose: 30 ml Lorazepam (Ativan Inj) 0.5 mg IV.PUSH Q6H PRN PRN Reason: SEVERE AGITATION Last Admin: 10/17/18 13:41 Dose: 0.5 mg Miscellaneous (Pill Splitter) 1 each OTHER UNSCH PRN PRN Reason: PILL SPLITTER Miscellaneous Information ([facility] Ordered Lab Info) 0 each OTHER ONCE ONE Stop: 10/18/18 12:46 Miscellaneous Medication () 1 each OROPHARYNG 0000,0400,1200,1600 [facility] Last Admin: 10/17/18 11:12 Dose: 1 each Morphine Sulfate (Morphine Inj) 2 mg IV.PUSH Q4H PRN PRN Reason: 6-10 pain Last Admin: 10/07/18 21:47 Dose: 2 mg Oxycodone HCl (Roxicodone Intensol Liq) 10 mg PO Q6H [facility] Last Admin: 10/17/18 11:13 Dose: 10 mg Pharmacy Profile Note (Vancomycin Consult Pharmacy) 1 each OTHER UNSCH PRN PRN Reason: Pharmacy to dose Quetiapine Fumarate (Seroquel) 150 mg PO BID [facility] Last Admin: 10/17/18 08:57 Dose: 150 mg Senna/Docusate Sodium (Shazia-Colace) 1 tab PO BID [facility] Last Admin: 10/17/18 08:59 Dose: 1 tab Sennosides (Senokot) 17.2 mg PO Q12H PRN PRN Reason: Moderate Constipation Sodium Chloride (Ns Flush) 2 ml IV.FLUSH BID [facility] Last Admin: 10/17/18 08:58 Dose: 2 ml Sodium Chloride (Ns Flush) 2 ml IV.FLUSH PRN PRN PRN Reason: FLUSH AFTER USING IV ACCESS Last Admin: 10/16/18 22:00 Dose: 2 ml Terbutaline Sulfate (Brethine Inj) 1 mg SQ UNSCH PRN PRN Reason: For Extravasation Ziprasidone (Geodon Inj) 20 mg IM Q12H PRN PRN Reason: SEVERE AGITATION Last Admin: 10/17/18 12:45 Dose: 20 mg <Roxanna Rubin A - Last Filed: 10/17/18 14:06> Allergies Allergy/AdvReac Type Severity Reaction Status Date / Time No Known Allergies Unknown Uncoded 10/27/17 16:04 Home Medications Medication Instructions Recorded Confirmed Type aspirin 81 mg PO DAILY 10/02/18 10/02/18 History citalopram 20 mg PO DAILY 10/02/18 10/02/18 History divalproex 1,500 mg PO DAILY 10/02/18 10/02/18 History gabapentin 300 mg PO BID 10/02/18 10/02/18 History losartan 10 mg PO DAILY 10/02/18 10/02/18 History meloxicam 15 mg PO DAILY 10/02/18 10/02/18 History pantoprazole [Protonix] 40 mg PO DAILY 10/02/18 10/02/18 History Depakote 500 TID 10/12/18 History citalopram 10/12/18 History citalopram 20 mg PO DAILY 10/12/18 10/12/18 History gabapentin 300 mg BID 10/12/18 10/12/18 History losartan 10/12/18 History meloxicam 15 mg PO DAILY 10/12/18 10/12/18 History [id number]-[id number] fum 10/12/18 History [Multi Vitamin] pantoprazole [Protonix] 40 mg PO DAILY 10/12/18 10/12/18 History Exam Vital signs: Vital Signs 10/16/18 11:00 10/16/18 11:16 10/16/18 12:00 Temperature 97.8 F Pulse Rate 61 55 L 58 L Respiratory Rate 3 L 17 17 Pulse Oximetry 95 95 10/16/18 13:00 10/16/18 13:38 10/16/18 14:00 Temperature Pulse Rate 67 73 Respiratory Rate 19 21 23 Pulse Oximetry 95 90 L 93 L 10/16/18 15:25 10/16/18 15:39 10/16/18 16:00 Temperature 98.5 F Pulse Rate 87 81 Respiratory Rate 18 14 Pulse Oximetry 100 96 10/16/18 16:19 10/16/18 17:00 10/16/18 18:00 Temperature Pulse Rate 103 H 69 Respiratory Rate 14 32 H 17 Pulse Oximetry 97 100 97 10/16/18 19:00 10/16/18 19:24 10/16/18 19:26 Temperature 98.6 F Pulse Rate 52 L 56 L Respiratory Rate 14 14 14 Pulse Oximetry 100 97 10/16/18 20:00 10/16/18 21:00 10/16/18 22:00 Temperature Pulse Rate 73 61 55 L Respiratory Rate 15 13 19 Pulse Oximetry 97 93 L 93 L 10/16/18 23:00 10/16/18 23:08 10/16/18 23:10 Temperature Pulse Rate 52 L 52 L Respiratory Rate 15 14 15 Pulse Oximetry 94 L 94 L 10/17/18 00:00 10/17/18 01:00 10/17/18 01:57 Temperature 98.6 F Pulse Rate 89 66 Respiratory Rate 27 H 14 16 Pulse Oximetry 96 98 98 10/17/18 02:00 10/17/18 03:00 10/17/18 03:07 Temperature Pulse Rate 69 51 L 54 L Respiratory Rate 20 15 15 Pulse Oximetry 98 96 10/17/18 04:00 10/17/18 05:00 10/17/18 05:02 Temperature 98.8 F 98.8 F Pulse Rate 74 94 H 93 H Respiratory Rate 17 24 23 Pulse Oximetry 99 95 94 L 10/17/18 06:00 10/17/18 07:00 10/17/18 08:00 Temperature 98.4 F Pulse Rate 92 H 80 79 Respiratory Rate 22 14 14 Pulse Oximetry 100 100 100 10/17/18 08:05 10/17/18 09:00 10/17/18 10:00 Temperature Pulse Rate 93 H Respiratory Rate 16 14 14 Pulse Oximetry 97 96 98 Intake & Output 10/16/18 10/17/18 10/17/18 18:59 06:59 18:59 Intake Total 1222 / 1222 1672 / 1672 1000 / 1000 Output Total 1085 / 1085 760 / 760 Balance 137 / 137 912 / 912 1000 / 1000 Weight 97.4 kg Intake: IV 765 / 765 700 / 700 1000 / 1000 Precedex Inj 800 MCG In NS Inj 100 / 100 92 ML @ 0.2 MCG/KG/HR 2.29 mls/ hr IV.CONT TITRATE PRN Rx#: [id number] Precedex Inj 200 MCG In NS Inj 150 / 150 150 / 150 48 ML @ 0.2 MCG/KG/HR 4.58 mls/ hr IV.CONT TITRATE PRN Rx#: [id number] LR 1000 mL Inj 1,000 ML @ 100 1000 / 1000 mls/hr IV.CONT .Q10H [facility] Rx#: [id number] Azactam Inj 2,000 MG In NS Inj 100 / 100 200 / 200 100 ML @ 200 mls/hr IV.SIG Q8H [facility] Rx#:[id number] Vancomycin Inj 1,500 MG In NS 515 / 515 Inj 500 ML @ 250 mls/hr IV.SIG Q24H [facility] Rx#:[id number] fentaNYL 10 mcg/mL Premix Drip 250 / 250 2,500 mcg In 250 ml @ 50 MCG/HR 5 mls/hr IV.SIG TITRATE PRN Rx #:[id number] Tube Feeding 337 / 337 322 / 322 Tube Irrigant 120 / 120 Other 250 / 250 Rbc As-3 Leukoreduced Unit 250 / 250 [id number] Intake (Blood Product) Amt 400 / 400 Rbc As-3 Leukoreduced Unit 400 / 400 [id number] Output: Urine Amount (Catheter) 1000 / 1000 700 / 700 Indwelling Urethral Catheter 1000 / 1000 700 / 700 Wound Drainage 85 / 85 60 / 60 Posterior Lumbar 85 / 85 60 / 60 Other: Date of Last Bowel Movement 10/16/18 10/16/18 10/16/18 # Bowel Movements 0 - Constitutional chronically ill appearing Comments: Tracheostomy, ventilated - Routine HEENT Exam Head: Present: normocephalic - Routine Neck Exam Comments: Tracheostomy - Routine Respiratory Exam Present: patient mechanically ventilated - Routine Cardiovascular Exam Present: S1, S2 - Routine Abdominal Exam Present: soft, normoactive bowel sounds. Absent: tenderness, firm - Routine Extremities Exam Present: edema Comments: Bilateral upper extremities - Routine Skin Exam Present: dry, warm - Routine Neurological Exam moves head sided to side spontaneously, unable to follow commands fentanyl and versed <Imelda Alvarez - Last Filed: 10/17/18 11:01> Vital signs: Vital Signs 10/16/18 15:25 10/16/18 15:39 10/16/18 16:00 Temperature 98.5 F Pulse Rate 87 81 Respiratory Rate 18 14 Pulse Oximetry 100 96 10/16/18 16:19 10/16/18 17:00 10/16/18 18:00 Temperature Pulse Rate 103 H 69 Respiratory Rate 14 32 H 17 Pulse Oximetry 97 100 97 10/16/18 19:00 10/16/18 19:24 10/16/18 19:26 Temperature 98.6 F Pulse Rate 52 L 56 L Respiratory Rate 14 14 14 Pulse Oximetry 100 97 10/16/18 20:00 10/16/18 21:00 10/16/18 22:00 Temperature Pulse Rate 73 61 55 L Respiratory Rate 15 13 19 Pulse Oximetry 97 93 L 93 L 10/16/18 23:00 10/16/18 23:08 10/16/18 23:10 Temperature Pulse Rate 52 L 52 L Respiratory Rate 15 14 15 Pulse Oximetry 94 L 94 L 10/17/18 00:00 10/17/18 01:00 10/17/18 01:57 Temperature 98.6 F Pulse Rate 89 66 Respiratory Rate 27 H 14 16 Pulse Oximetry 96 98 98 10/17/18 02:00 10/17/18 03:00 10/17/18 03:07 Temperature Pulse Rate 69 51 L 54 L Respiratory Rate 20 15 15 Pulse Oximetry 98 96 10/17/18 04:00 10/17/18 05:00 10/17/18 05:02 Temperature 98.8 F 98.8 F Pulse Rate 74 94 H 93 H Respiratory Rate 17 24 23 Pulse Oximetry 99 95 94 L 10/17/18 06:00 10/17/18 07:00 10/17/18 08:00 Temperature 98.4 F Pulse Rate 92 H 80 79 Respiratory Rate 22 14 14 Pulse Oximetry 100 100 100 10/17/18 08:05 10/17/18 09:00 10/17/18 10:00 Temperature Pulse Rate 93 H Respiratory Rate 16 14 14 Pulse Oximetry 97 96 98 10/17/18 11:00 10/17/18 11:58 10/17/18 12:00 Temperature 98.2 F Pulse Rate 109 H 114 H 116 H Respiratory Rate 30 H 20 30 H Pulse Oximetry 97 97 97 10/17/18 13:00 Temperature Pulse Rate 124 H Respiratory Rate 24 Pulse Oximetry 96 Intake & Output 10/16/18 10/17/18 10/17/18 18:59 06:59 18:59 Intake Total 1222 / 1222 1672 / 1672 2099 / 2099 Output Total 1085 / 1085 760 / 760 Balance 137 / 137 912 / 912 2099 / 2099 Weight 97.4 kg Intake: IV 765 / 765 700 / 700 2099 / 2099 Precedex Inj 800 MCG In NS Inj 100 / 100 92 ML @ 0.2 MCG/KG/HR 2.29 mls/ hr IV.CONT TITRATE PRN Rx#: [id number] Precedex Inj 200 MCG In NS Inj 150 / 150 150 / 150 48 ML @ 0.2 MCG/KG/HR 4.58 mls/ hr IV.CONT TITRATE PRN Rx#: [id number] LR 1000 mL Inj 1,000 ML @ 100 2000 / 2000 mls/hr IV.CONT .Q10H [facility] Rx#: [id number] Azactam Inj 2,000 MG In NS Inj 100 / 100 200 / 200 100 / 100 100 ML @ 200 mls/hr IV.SIG Q8H [facility] Rx#:[id number] Vancomycin Inj 1,500 MG In NS 515 / 515 Inj 500 ML @ 250 mls/hr IV.SIG Q24H [facility] Rx#:[id number] fentaNYL 10 mcg/mL Premix Drip 250 / 250 2,500 mcg In 250 ml @ 50 MCG/HR 5 mls/hr IV.SIG TITRATE PRN Rx #:[id number] Tube Feeding 337 / 337 322 / 322 Tube Irrigant 120 / 120 Other 250 / 250 Rbc As-3 Leukoreduced Unit 250 / 250 [id number] Intake (Blood Product) Amt 400 / 400 Rbc As-3 Leukoreduced Unit 400 / 400 [id number] Output: Urine Amount (Catheter) 1000 / 1000 700 / 700 Indwelling Urethral Catheter 1000 / 1000 700 / 700 Wound Drainage 85 / 85 60 / 60 Posterior Lumbar 85 / 85 60 / 60 Other: Date of Last Bowel Movement 10/16/18 10/16/18 10/16/18 # Bowel Movements 0 <Roxanna Rubin A - Last Filed: 10/17/18 14:06> Results - Labs CBC & Chem 7: 10/17/18 09:43 10/17/18 04:05 Labs: Laboratory Results - last 24 hr 10/14/18 10/16/18 10/16/18 12:22 10:18 10:18 WBC RBC Hgb Hct MCV MCH MCHC RDW Plt Count MPV Prelim Diff (Auto) Neut % (Auto) Lymph % (Auto) [place] % (Auto) Eos % (Auto) Baso % (Auto) Neut # (Auto) Lymph # (Auto) [place] # (Auto) Eos # (Auto) Baso # (Auto) WBC Differential Diff Scan Differential Comment Ovalocytes ESR Puncture Site Patient Temperature O2 Saturation ABG pH ABG pCO2 ABG pO2 ABG HCO3 ABG O2 Content ABG Base Excess ABG Methemoglobin Jorge Luis Test Hemoglobin Carboxyhemoglobin O2 Delivery Device Vent Setting Inspired O2 Critical Value Sodium Potassium Chloride Carbon Dioxide Anion Gap BUN Creatinine Estimated GFR Random Glucose Calcium Total Bilirubin AST ALT Alkaline Phosphatase Ammon[place] Total Creatine Kinase Total Protein Albumin Vitamin B12 TSH Free T4 CSF Volume (1) 8.5 CSF Supernat Color (1) Slightly xanthochrom A CSF Gross Blood (1) 1+ A CSF WBC (1) 60 H CSF RBC (1) 2187 H CSF Neutrophils % 73 CSF Lymphocytes % 10 CSF Monocytes % 10 CSF Basophils % 1 CSF Histiocytes 6 CSF Glucose 66 CSF Total Protein 133.4 H MTS Gel Crossmatch See Detail 10/16/18 10/16/18 10/16/18 12:30 14:05 14:05 WBC RBC Hgb Hct MCV MCH MCHC RDW Plt Count MPV Prelim Diff (Auto) Neut % (Auto) Lymph % (Auto) [place] % (Auto) Eos % (Auto) Baso % (Auto) Neut # (Auto) Lymph # (Auto) [place] # (Auto) Eos # (Auto) Baso # (Auto) WBC Differential Diff Scan Differential Comment Ovalocytes ESR Greater than 140 H Puncture Site Art line Patient Temperature 98.6 O2 Saturation 93 ABG pH 7.43 H ABG pCO2 32 L ABG pO2 78 ABG HCO3 21 L ABG O2 Content 10.2 L ABG Base Excess -2.9 L ABG Methemoglobin 1.2 Jorge Luis Test Present Hemoglobin 7.7 L* Carboxyhemoglobin 1.9 O2 Delivery Device Ventilator Vent Setting Cpap/5peep/10ps Inspired O2 35 Critical Value Yes Sodium Potassium Chloride Carbon Dioxide Anion Gap BUN Creatinine Estimated GFR Random Glucose Calcium Total Bilirubin AST ALT Alkaline Phosphatase Ammonia 22 Total Creatine Kinase Total Protein Albumin Vitamin B12 TSH Free T4 CSF Volume (1) CSF Supernat Color (1) CSF Gross Blood (1) CSF WBC (1) CSF RBC (1) CSF Neutrophils % CSF Lymphocytes % CSF Monocytes % CSF Basophils % CSF Histiocytes CSF Glucose CSF Total Protein MTS Gel Crossmatch 10/16/18 10/17/18 10/17/18 14:05 04:05 04:05 WBC 7.9 RBC 2.37 L Hgb 6.8 L* Hct 20.9 L* MCV 88.1 MCH 28.9 MCHC 32.7 RDW 19.6 H Plt Count 175 MPV 7.8 Prelim Diff (Auto) Slide review pending Neut % (Auto) 79.1 H Lymph % (Auto) 9.3 [place] % (Auto) 8.3 H Eos % (Auto) 3.0 Baso % (Auto) 0.3 Neut # (Auto) 6.2 Lymph # (Auto) 0.7 L [place] # (Auto) 0.7 Eos # (Auto) 0.2 Baso # (Auto) 0.0 WBC Differential . Diff Scan Auto diff confirmed Differential Comment . Ovalocytes 1+ H ESR Puncture Site Patient Temperature O2 Saturation ABG pH ABG pCO2 ABG pO2 ABG HCO3 ABG O2 Content ABG Base Excess ABG Methemoglobin Jorge Luis Test Hemoglobin Carboxyhemoglobin O2 Delivery Device Vent Setting Inspired O2 Critical Value Sodium 147 H Potassium 3.6 D Chloride 115 H Carbon Dioxide 22.5 Anion Gap 10 BUN 54 H Creatinine 1.38 H Estimated GFR 50 L Random Glucose 127 H Calcium 8.9 Total Bilirubin 0.3 AST 33 ALT 23 Alkaline Phosphatase 105 Ammonia Total Creatine Kinase 53 Total Protein 5.5 L Albumin 1.6 L Vitamin B12 1791 H TSH 1.560 1.870 Free T4 1.26 CSF Volume (1) CSF Supernat Color (1) CSF Gross Blood (1) CSF WBC (1) CSF RBC (1) CSF Neutrophils % CSF Lymphocytes % CSF Monocytes % CSF Basophils % CSF Histiocytes CSF Glucose CSF Total Protein MTS Gel Crossmatch 10/17/18 10/17/18 04:52 09:43 WBC RBC Hgb 7.7 L Hct 22.4 L MCV MCH MCHC RDW Plt Count MPV Prelim Diff (Auto) Neut % (Auto) Lymph % (Auto) [place] % (Auto) Eos % (Auto) Baso % (Auto) Neut # (Auto) Lymph # (Auto) [place] # (Auto) Eos # (Auto) Baso # (Auto) WBC Differential Diff Scan Differential Comment Ovalocytes ESR Puncture Site Patient Temperature O2 Saturation ABG pH ABG pCO2 ABG pO2 ABG HCO3 ABG O2 Content ABG Base Excess ABG Methemoglobin Jorge Luis Test Hemoglobin Carboxyhemoglobin O2 Delivery Device Vent Setting Inspired O2 Critical Value Sodium Potassium Chloride Carbon Dioxide Anion Gap BUN Creatinine Estimated GFR Random Glucose Calcium Total Bilirubin AST ALT Alkaline Phosphatase Ammonia Total Creatine Kinase Total Protein Albumin Vitamin B12 TSH Free T4 CSF Volume (1) CSF Supernat Color (1) CSF Gross Blood (1) CSF WBC (1) CSF RBC (1) CSF Neutrophils % CSF Lymphocytes % CSF Monocytes % CSF Basophils % CSF Histiocytes CSF Glucose CSF Total Protein MTS Gel Crossmatch See Detail - Imaging Impressions Cervical Spine MRI 10/16/18 11:58 CONCLUSION: Mild spondylosis and disc disease. No significant canal or foraminal compromise. No explanation for myelopathy. Head MRI 10/16/18 11:58 CONCLUSION: No acute intracranial findings. <Imelda Alvarez - Last Filed: 10/17/18 11:01> - Labs CBC & Chem 7: 10/17/18 09:43 10/17/18 04:05 Labs: Laboratory Results - last 24 hr 10/14/18 10/16/18 10/16/18 12:22 14:05 14:05 WBC RBC Hgb Hct MCV MCH MCHC RDW Plt Count MPV Prelim Diff (Auto) Neut % (Auto) Lymph % (Auto) [place] % (Auto) Eos % (Auto) Baso % (Auto) Neut # (Auto) Lymph # (Auto) [place] # (Auto) Eos # (Auto) Baso # (Auto) WBC Differential Diff Scan Differential Comment Ovalocytes ESR Greater than 140 H Sodium Potassium Chloride Carbon Dioxide Anion Gap BUN Creatinine Estimated GFR Random Glucose Calcium Total Bilirubin AST ALT Alkaline Phosphatase Ammonia 22 Total Creatine Kinase Total Protein Albumin Vitamin B12 TSH Free T4 MTS Gel Crossmatch See Detail 10/16/18 10/17/18 10/17/18 14:05 04:05 04:05 WBC 7.9 RBC 2.37 L Hgb 6.8 L* Hct 20.9 L* MCV 88.1 MCH 28.9 MCHC 32.7 RDW 19.6 H Plt Count 175 MPV 7.8 Prelim Diff (Auto) Slide review pending Neut % (Auto) 79.1 H Lymph % (Auto) 9.3 Hur[place] % (Auto) 8.3 H Eos % (Auto) 3.0 Baso % (Auto) 0.3 Neut # (Auto) 6.2 Lymph # (Auto) 0.7 L [place] # (Auto) 0.7 Eos # (Auto) 0.2 Baso # (Auto) 0.0 WBC Differential . Diff Scan Auto diff confirmed Differential Comment . Ovalocytes 1+ H ESR Sodium 147 H Potassium 3.6 D Chloride 115 H Carbon Dioxide 22.5 Anion Gap 10 BUN 54 H Creatinine 1.38 H Estimated GFR 50 L Random Glucose 127 H Calcium 8.9 Total Bilirubin 0.3 AST 33 ALT 23 Alkaline Phosphatase 105 Ammonia Total Creatine Kinase 53 Total Protein 5.5 L Albumin 1.6 L Vitamin B12 1791 H TSH 1.560 1.870 Free T4 1.26 MTS Gel Crossmatch 10/17/18 10/17/18 04:52 09:43 WBC RBC Hgb 7.7 L Hct 22.4 L MCV MCH MCHC RDW Plt Count MPV Prelim Diff (Auto) Neut % (Auto) Lymph % (Auto) [place] % (Auto) Eos % (Auto) Baso % (Auto) Neut # (Auto) Lymph # (Auto) [place] # (Auto) Eos # (Auto) Baso # (Auto) WBC Differential Diff Scan Differential Comment Ovalocytes ESR Sodium Potassium Chloride Carbon Dioxide Anion Gap BUN Creatinine Estimated GFR Random Glucose Calcium Total Bilirubin AST ALT Alkaline Phosphatase Ammonia Total Creatine Kinase Total Protein Albumin Vitamin B12 TSH Free T4 MTS Gel Crossmatch See Detail - Imaging Impressions Cervical Spine MRI 10/16/18 11:58 CONCLUSION: Mild spondylosis and disc disease. No significant canal or foraminal compromise. No explanation for myelopathy. Head MRI 10/16/18 11:58 CONCLUSION: No acute intracranial findings. <Roxanna Rubin - Last Filed: 10/17/18 14:06> Assessment and Plan (1) PEG (percutaneous endoscopic gastrostomy) adjustment/replacement/removal Status: Acute Code(s): Z43.1 - Encounter for attention to gastrostomy - Plan Patient is a 73-year-old male with past medical history significant for hypertension, COPD, prostate carcinoma and lumbar laminectomy. Surgical history includes endarterectomy. Patient was transferred from [facility] to [facility] for evaluation of acute onset of bilateral lower extremity weakness. CT of the lumbar spine revealed attenuation in the ventral epidural space L2-L3 suspicious for large disc extrusion with spinal canal stenosis. Patient has tracheostomy and is ventilated. Patient has lumbar drain present draining cerebrospinal fluid. NG tube present and clamped at this time. Our service has been consulted to evaluate patient for PEG tube placement. PEG tube placement -Patient with past medical history of lumbar laminectomy presented to the emergency department with reported numbness and weakness of bilateral lower extremities. CT lumbar spine shows moderate bilateral neuro foraminal stenosis. 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 -Obtain consent for PEG tube placement -Dietary recommendation noted for tube feeding -Supportive care -Further recommendations to follow This patient has been seen by myself and Dr. Rubin and this note is written on his behalf - Attending Attestation Dr. Rubin <Imelda Alvarez - Last Filed: 10/17/18 11:01> (1) PEG (percutaneous endoscopic gastrostomy) adjustment/replacement/removal Status: Acute Code(s): Z43.1 - Encounter for attention to gastrostomy - Attending Attestation Seen and examined, plan as above. Will obtain consent for PEG placement and proceed today. Thank you for the consult. <Roxanna Rubin - Last Filed: 10/17/18 14:06>
--- NOTE | 2018-10-17 11:41 | P.PNNS ---
Subjective Interval history: Lumbar drain in place. Sedation weaning -- EEG/MRI Brain/C-spine negative-- appreciate Neurology consult-- more awake today Physical Exam Vital signs: Vital Signs 10/16/18 12:00 10/16/18 13:00 10/16/18 13:38 Temperature 97.8 F Pulse Rate 58 L 67 Respiratory Rate 17 19 21 Pulse Oximetry 95 95 90 L 10/16/18 14:00 10/16/18 15:25 10/16/18 15:39 Temperature Pulse Rate 73 87 Respiratory Rate 23 18 Pulse Oximetry 93 L 100 10/16/18 16:00 10/16/18 16:19 10/16/18 17:00 Temperature 98.5 F Pulse Rate 81 103 H Respiratory Rate 14 14 32 H Pulse Oximetry 96 97 100 10/16/18 18:00 10/16/18 19:00 10/16/18 19:24 Temperature 98.6 F Pulse Rate 69 52 L Respiratory Rate 17 14 14 Pulse Oximetry 97 100 97 10/16/18 19:26 10/16/18 20:00 10/16/18 21:00 Temperature Pulse Rate 56 L 73 61 Respiratory Rate 14 15 13 Pulse Oximetry 97 93 L 10/16/18 22:00 10/16/18 23:00 10/16/18 23:08 Temperature Pulse Rate 55 L 52 L Respiratory Rate 19 15 14 Pulse Oximetry 93 L 94 L 94 L 10/16/18 23:10 10/17/18 00:00 10/17/18 01:00 Temperature 98.6 F Pulse Rate 52 L 89 66 Respiratory Rate 15 27 H 14 Pulse Oximetry 96 98 10/17/18 01:57 10/17/18 02:00 10/17/18 03:00 Temperature Pulse Rate 69 51 L Respiratory Rate 16 20 15 Pulse Oximetry 98 98 96 10/17/18 03:07 10/17/18 04:00 10/17/18 05:00 Temperature 98.8 F Pulse Rate 54 L 74 94 H Respiratory Rate 15 17 24 Pulse Oximetry 99 95 10/17/18 05:02 10/17/18 06:00 10/17/18 07:00 Temperature 98.8 F Pulse Rate 93 H 92 H 80 Respiratory Rate 23 22 14 Pulse Oximetry 94 L 100 100 10/17/18 08:00 10/17/18 08:05 10/17/18 09:00 Temperature 98.4 F Pulse Rate 79 Respiratory Rate 14 16 14 Pulse Oximetry 100 97 96 10/17/18 10:00 Temperature Pulse Rate 93 H Respiratory Rate 14 Pulse Oximetry 98 Intake & Output 10/16/18 10/17/18 10/17/18 18:59 06:59 18:59 Intake Total 1222 / 1222 1672 / 1672 1000 / 1000 Output Total 1085 / 1085 760 / 760 Balance 137 / 137 912 / 912 1000 / 1000 Weight 97.4 kg Intake: IV 765 / 765 700 / 700 1000 / 1000 Precedex Inj 800 MCG In NS Inj 100 / 100 92 ML @ 0.2 MCG/KG/HR 2.29 mls/ hr IV.CONT TITRATE PRN Rx#: [id number] Precedex Inj 200 MCG In NS Inj 150 / 150 150 / 150 48 ML @ 0.2 MCG/KG/HR 4.58 mls/ hr IV.CONT TITRATE PRN Rx#: [id number] LR 1000 mL Inj 1,000 ML @ 100 1000 / 1000 mls/hr IV.CONT .Q10H REPLACED BY [facility] Rx#: [id number] Azactam Inj 2,000 MG In NS Inj 100 / 100 200 / 200 100 ML @ 200 mls/hr IV.SIG Q8H REPLACED BY [facility] Rx#:[id number] Vancomycin Inj 1,500 MG In NS 515 / 515 Inj 500 ML @ 250 mls/hr IV.SIG Q24H [facility] Rx#:[id number] fentaNYL 10 mcg/mL Premix Drip 250 / 250 2,500 mcg In 250 ml @ 50 MCG/HR 5 mls/hr IV.SIG TITRATE PRN Rx #:[id number] Tube Feeding 337 / 337 322 / 322 Tube Irrigant 120 / 120 Other 250 / 250 Rbc As-3 Leukoreduced Unit 250 / 250 [id number] Intake (Blood Product) Amt 400 / 400 Rbc As-3 Leukoreduced Unit 400 / 400 [id number] Output: Urine Amount (Catheter) 1000 / 1000 700 / 700 Indwelling Urethral Catheter 1000 / 1000 700 / 700 Wound Drainage 85 / 85 60 / 60 Posterior Lumbar 85 / 85 60 / 60 Other: Date of Last Bowel Movement 10/16/18 10/16/18 10/16/18 # Bowel Movements 0 Narrative: shaking head left/right moving upper extremities more seems to localize to daughter's voice (Recognize) moving lower extremities (starting) - Urinary Catheter Management Indwelling Urethral Catheter Cath placed during this visit: yes Reason for continuing: Hourly intake/output Insertion date: 10/02/18 Insertion time: 20:32 Assessment and Plan - Plan 73yoM po (10/02/18) L2-5 revision fusion and left L2/3 discectomy 10/15/18 pod#1 revision of lumbar wound. Keep Lumbar Drain at 5cm below EAC, goal 160/ 12 hours (or 120/8 hour shift). 10/16/18 CSF starting to show yellow-- sample sent to micro/lab dressing dry. continue lumbar drainage until Friday10/17/18 f/u CSF-- negative thus far. MRI/Brain/C-spine/EEG-negative -- appreciate Neurology consult Lumbar drain until Friday, then clamp, then d/c Friday if dressing continues to be dry appreciate ID recs/abx re: rash
[2018-10-17] MEDS: Vancomycin Inj 1,500 MG in Sodium Chlor 0.9% Inj 500 ML IV.SIG SCH (12:04)
--- NOTE | 2018-10-17 12:38 | P.PNCC ---
Subjective Subjective Remarks/Hospital Course: Patient is a 73-year-old male with past medical history significant for hypertension, COPD, Prostate carcinoma, history of previous lumbar laminectomy who came to the [place] emergency department as a transfer from transfer from [facility]. He was accepted by neurosurgery Dr. Peter for acute onset bilateral lower extremity weakness. Patient states that he woke up this morning around 6 AM with numbness and weakness of bilateral lower extremity. On attempt to walk he fell on his face due to weakness. Patient states that the strength got slight better since then. CT scan of the lumbar spine large area of soft attenuation attenuation in the ventral epidural space L2-L3 level suspicious for large disc extrusion with spinal canal stenosis with differential diagnosis involving hemorrhage, there is also at least moderate bilateral neural foraminal stenosis. I evaluate the patient in the ED. He complains of weakness more on the left leg which he is unable to lift. There is generalized numbness but he is able to feel my touch. Critical care was requested to admit the patient to the ICU. Discussed with Dr. Mittal ED and Dr. Peter neurosurgery. A stat MRI of the lumbar spine had been ordered. 10/03: Remains intubated sedated. Remains on Levophed at 10 mcg/min to maintain map above 70. Patient is s/p L2 to L5 posterior spinal fusion, Left L2 /3 microdiscectomy. (MRI showed large herniated disc at L2/3 and flex/ex showing instability at this level). On sedation hold patient is moving all 4 extremities. Hb 8.3 will transfuse 1 unit PRBC due to hypotension 10/04: Remains intubated sedated remains on 8 mcg/min of Levophed to maintain map above 75. Transfusing 1 unit PRBC for hemoglobin 7.4. post-op MRI with significant disc herniation at L2/3. Scheduled for surgery today with Dr. Peter 10/05: Patient underwent surgery on 10/04/2018 for removal residual disc at L2/ 3 right side based on post-op MRI. (s/p L2-5 revision fusion and left L2/3 discectomy on 10/02/18). Today patient's hypoxemia had improved, he was awake but on lightening sedation was very agitated so after a short CPAP trial patient was extubated. Shortly after extubation patient became very agitated requiring four-point restraints and physically nurses having to restrain him. 2 mg IV Ativan was given following which patient became partially responsive with obstructive airway sounds. Shortly became hypoxemic desaturated, became bradycardic in 40s and systolic blood pressure does drop to mid 40s. I was emergently called to the bedside I started bag and mask ventilation immediately. Half ampule of epinephrine was post IV. His heart rate in systolic blood pressure improved with bag and mask ventilation and epinephrine push however he remained unresponsive. Emergently intubated and placed on mechanical ventilation. Once more responsive will start on sedation with Versed. Start Levophed to maintain map above 65. Postintubation chest x-ray is pending. 10/06: Remains intubated heavily sedated for vent synchrony. Patient gets very agitated on holding sedation. We will start Precedex to facilitate vent weaning. Hemoglobin is 7.1, 1 unit of PRBC followed by IV Lasix ordered. 10/07: Agitated. TVs > 1.0 liter spontaneous. Extubated. Patient required reintubation about 5 hours later due to hypoxemia. 10/08: Intubated for the third time last evening. He is unable to tolerate extubation due to a combination of underlying lung disease and severe agitation. If the family wishes to proceed he will require tracheostomy for safe weaning from the ventilator. His baseline mental status is apparently pretty close to normal. 10/09: Tracheostomy placed yesterday. Large amounts of white thick secretions encountered. Chest x-ray continues with a pattern of pulmonary edema. We will continue aggressive twice daily diuretic therapy. Ostensibly plan is to transfer to [facility] at the beginning of next week. One family member is not on board with that yet however. 10/10: Lumbar drain has been placed. Continue spontaneous breathing trials through tracheostomy. Continue discussions with family about transfer to LTAC for long-term weaning. No evidence of infection. 10/11: Effective diuresis but now developing a mild prerenal azotemia. Will hold off for a while and gently hydrate. Now the tracheostomy is performed there is not quite urgency to desiccate his lungs. Hopefully we can work toward a cyst transferred to critical access hospital after lumbar drain discontinued. 10/12: Following tracheostomy we will continue with attempts at ventilator weaning. Patient has a lumbar drain in place in an attempt to stop a lumbar region wound CSF leak. [facility] patient for long-term weaning once lumbar drain is out. Gentle hydration continues until such time as prerenal azotemia is attenuated. Continue enteral nutrition. 10/13: Remains on mechanical ventilation via tracheostomy. Still on significant sedation due to agitation issues. Lumbar drain continues to drain. Possible surgery tomorrow. 10/14: Remains sedated, on mechanical ventilation via tracheostomy. Scheduled for surgery today for CSF leak lumbar region. 10/15: Remains sedated on mechanical ventilation via tracheostomy. Status post revision of lumbar wound on 10/14 by neurosurgery. Lumbar drain in place and drained 120 cc since yesterday. 10/16: Remains on mechanical ventilation via tracheostomy. Still dealing with agitation on lightening sedation. On Precedex/fentanyl. Received 1 dose of Geodon last night. Also getting as needed Ativan and Seroquel. 10/17: We continue to deal with bouts of agitation which hamper her ability to wean him from the ventilator. Gas exchange remains acceptable. He has required 1 unit of blood transfusion. Objective Vital Signs / I&O: Vital Signs 10/16/18 13:00 10/16/18 13:38 10/16/18 14:00 Temperature Pulse Rate 67 73 Respiratory Rate 19 21 23 Pulse Oximetry 95 90 L 93 L 10/16/18 15:25 10/16/18 15:39 10/16/18 16:00 Temperature 98.5 F Pulse Rate 87 81 Respiratory Rate 18 14 Pulse Oximetry 100 96 10/16/18 16:19 10/16/18 17:00 10/16/18 18:00 Temperature Pulse Rate 103 H 69 Respiratory Rate 14 32 H 17 Pulse Oximetry 97 100 97 10/16/18 19:00 10/16/18 19:24 10/16/18 19:26 Temperature 98.6 F Pulse Rate 52 L 56 L Respiratory Rate 14 14 14 Pulse Oximetry 100 97 10/16/18 20:00 10/16/18 21:00 10/16/18 22:00 Temperature Pulse Rate 73 61 55 L Respiratory Rate 15 13 19 Pulse Oximetry 97 93 L 93 L 10/16/18 23:00 10/16/18 23:08 10/16/18 23:10 Temperature Pulse Rate 52 L 52 L Respiratory Rate 15 14 15 Pulse Oximetry 94 L 94 L 10/17/18 00:00 10/17/18 01:00 10/17/18 01:57 Temperature 98.6 F Pulse Rate 89 66 Respiratory Rate 27 H 14 16 Pulse Oximetry 96 98 98 10/17/18 02:00 10/17/18 03:00 10/17/18 03:07 Temperature Pulse Rate 69 51 L 54 L Respiratory Rate 20 15 15 Pulse Oximetry 98 96 10/17/18 04:00 10/17/18 05:00 10/17/18 05:02 Temperature 98.8 F 98.8 F Pulse Rate 74 94 H 93 H Respiratory Rate 17 24 23 Pulse Oximetry 99 95 94 L 10/17/18 06:00 10/17/18 07:00 10/17/18 08:00 Temperature 98.4 F Pulse Rate 92 H 80 79 Respiratory Rate 22 14 14 Pulse Oximetry 100 100 100 10/17/18 08:05 10/17/18 09:00 10/17/18 10:00 Temperature Pulse Rate 93 H Respiratory Rate 16 14 14 Pulse Oximetry 97 96 98 10/17/18 11:58 Temperature Pulse Rate 114 H Respiratory Rate 20 Pulse Oximetry 97 Intake & Output 10/16/18 10/17/18 10/17/18 18:59 06:59 18:59 Intake Total 1222 / 1222 1672 / 1672 1100 / 1100 Output Total 1085 / 1085 760 / 760 Balance 137 / 137 912 / 912 1100 / 1100 Weight 97.4 kg Intake: IV 765 / 765 700 / 700 1100 / 1100 Precedex Inj 800 MCG In NS Inj 100 / 100 92 ML @ 0.2 MCG/KG/HR 2.29 mls/ hr IV.CONT TITRATE PRN Rx#: [id number] Precedex Inj 200 MCG In NS Inj 150 / 150 150 / 150 48 ML @ 0.2 MCG/KG/HR 4.58 mls/ hr IV.CONT TITRATE PRN Rx#: [id number] LR 1000 mL Inj 1,000 ML @ 100 1000 / 1000 mls/hr IV.CONT .Q10H [facility] Rx#: [id number] Azactam Inj 2,000 MG In NS Inj 100 / 100 200 / 200 100 / 100 100 ML @ 200 mls/hr IV.SIG Q8H [facility] Rx#:[id number] Vancomycin Inj 1,500 MG In NS 515 / 515 Inj 500 ML @ 250 mls/hr IV.SIG Q24H [facility] Rx#:[id number] fentaNYL 10 mcg/mL Premix Drip 250 / 250 2,500 mcg In 250 ml @ 50 MCG/HR 5 mls/hr IV.SIG TITRATE PRN Rx #:[id number] Tube Feeding 337 / 337 322 / 322 Tube Irrigant 120 / 120 Other 250 / 250 Rbc As-3 Leukoreduced Unit 250 / 250 [id number] Intake (Blood Product) Amt 400 / 400 Rbc As-3 Leukoreduced Unit 400 / 400 [id number] Output: Urine Amount (Catheter) 1000 / 1000 700 / 700 Indwelling Urethral Catheter 1000 / 1000 700 / 700 Wound Drainage 85 / 85 60 / 60 Posterior Lumbar 85 / 85 60 / 60 Other: Date of Last Bowel Movement 10/16/18 10/16/18 10/16/18 # Bowel Movements 0 Result Diagrams: 10/17/18 09:43 10/17/18 04:05 Objective Remarks: GENERAL: Elderly gentleman, intermittently sedated for vent synchrony, ongoing vent weaning. SKIN: warm/dry. HEAD: Normocephalic. Atraumatic EYES: No injection or drainage. No conjunctival icterus or injection ENT: tracheostomy in place, site clean and dry NECK: Tracheostomy in place CARDIOVASCULAR: S1-S2 normal, no murmurs. Neck veins remain full. RESPIRATORY: Air entry equal bilaterally, few scattered rhonchi, no wheezes. Copious mobile secretions persist. GASTROINTESTINAL: Abdomen soft, non-tender, nondistended. Bowel sounds are active. No guarding. MUSCULOSKELETAL: No cyanosis, or edema. Warm, well-perfused. NEURO: Intubated via tracheostomy, lightly sedated for vent synchrony. Moves all 4 limbs to stimulation. Episodically quite agitated. Of note, patient was perfectly well oriented and cooperative on admission. Lumbar drain in place with dressing over surgical site clean dry and intact. 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 Code(s): M47.16 - Other spondylosis with myelopathy, lumbar region Status: Acute (2) Weakness of lower extremity Code(s): R29.898 - Other symptoms and signs involving the musculoskeletal system Status: Acute (3) COPD (chronic obstructive pulmonary disease) Code(s): J44.9 - Chronic obstructive pulmonary disease, unspecified Status: Chronic (4) History of prostate cancer Code(s): Z85.46 - Personal history of malignant neoplasm of prostate Status: Chronic (5) History of hypertension Code(s): Z86.79 - Personal history of other diseases of the circulatory system Status: Chronic - Assessment and Plan Plan: ASSESSMENT: Acute hypoxemic hypercarbic/hypoxemic respiratory failure Respiratory arrest after receiving Ativan on 10/05/2018 Hypotension now resolved Lumbar cord compression likely secondary to large herniated disc, with lower extremity weakness Right L2/L3 discectomy 10/04/2018 for removal residual disc at right L2/3 s/p L2-5 revision fusion and left L2/3 discectomy on 10/02/18. Hypotension on pressors History of previous lumbar posterior fusion and microdiscectomy by Dr. Hansen Acute on chronic kidney disease Anemia requiring transfusion History of prostate cancer COPD History of hypertension PLAN: NEURO: -MRI showing large herniated disc at L2/3 and flex/ex showing instability at this level. -s/p L2-5 revision fusion and left L2/3 discectomy on 10/02/18. -post-op MRI with significant disc herniation at right L2/3 despite resection, Right L2/L3 discectomy 10/04/2018 - Lumbar drain in place for CSF leak. Status post lumbar wound revision on by neurosurgery -Spine precautions -Currently sedated with Versed/ propofol and fentanyl. -Started Precedex to facilitate vent weaning, Seroquel 50 twice daily -Neurosurgery Dr. Peter. -Gustavodon prn, to take p.o. atypical antipsychotic Seroquel. Valproate dose increased on 10/13 -Continue to adjust medications for agitation. RESP: -Extubated 10/05/18 however became unresponsive and hypoxic after receiving Ativan for agitation -Emergently reintubated and placed on mechanical ventilation -Currently on PRVC/AC -DuoNeb every 6 hours scheduled and as needed -Tapered off solumedrol. -Aggressive pulmonary toilet -f/u sputum culture, continue empiric cefepime -Extubated again 10/07 -Required reintubation 5 hours after extubation due to secretions and hypoxemia. Situation made worse by underlying agitation. -Tracheostomy performed 10/08 -Continue spontaneous breathing trials. -Hold diuretics. CV: -Cardiac decompensation most likely secondary to pulmonary problems, hypoxemia -Gas exchange improving GI: - IV famotidine. Continue tube feeds -Bowel regimen : -Monitor renal function closely. -Strict intake output, monitor and replete elect lites, follow given creatinine ID: -Sputum culture, stop cefepime due to rash, switched to IV Azactam and vancomycin due to rash on 10/16. Benadryl as needed for rash - ID consult for antibiotic management HEME: -Transfused 1 unit PRBC -Monitor CBC, coags ENDO: -Electrolyte replacement per protocol PROPH: -Bilateral lower extremity SCDs. No chemical DVT prophylaxis due to spinal surgery/continue famotidine LINES: -Utilize peripheral IVs, central line as needed -PT evaluate and treat All impression: Patient remains critically ill and ventilator dependent and we have been unable to keep him extubated for more than a few hours. His baseline mental status was quite good prior to this and so far the family has requested ongoing aggressive care. We will continue to try to clean up his lungs and encourage ventilator weaning. Lumbar drain in place, hold transfer to LTAC for now. It seems the gentleman either has pleural effusions or renal failure depending how successfully we have diuresed him. He remains unstable and will likely be a long-term vent weaning problem, plan LTAC transfer when CSF drain is removed. Critical care time 38 minutes aside from procedures.
--- NOTE | 2018-10-17 15:06 | GIPROC ---
[facility] [address] [facility]. [facility], [address] EGD PROCEDURE REPORT EXAM DATE: 10/17/2018 PATIENT NAME: Gregory Castellanos MR #: [id number] BIRTHDATE: 1945 ATTENDING: Roxanna Rubin MD ORDER #: [id number] HYDRAULIC TESTER: Dilia Costa RN and Titi Wilhelm SMOG TECHNICIAN STATUS: inpatient INDICATIONS: The patient is a 73 yr old male here for an EGD due to PEG placement PROCEDURE PERFORMED: Panendoscopy with PEG MEDICATIONS: None and Per Anesthesia. TOPICAL ANESTHETIC: none CONSENT: The patient understands the risks and benefits of the procedure and understands that these risks include, but are not limited to: sedation, allergic reaction, infection, perforation and/or bleeding. Alternative means of evaluation and treatment include, among others: physical exam, x-rays, and/or surgical intervention. The patient elects to proceed with this endoscopic procedure. medical equipment was checked for proper function. Hand hygiene and appropriate measures for infection prevention was taken. After the risks, benefits and alternatives of the procedure were thoroughly explained, Informed consent was verified, confirmed and timeout was successfully executed by the treatment team. The patient was anesthetized with topical anesthesia and the Pentax [id number] endoscope was introduced through the mouth and advanced to the second portion of the duodenum. Retroflexion was performed and was normal The gastroscope was then slowly withdrawn and removed. The endoscopy was otherwise normal. ADVERSE EVENTS: There were no complications. IMPRESSIONS: 1. Normal endoscopy otherwise 2. PEG tube placed successfully 22F RECOMMENDATIONS: PEG recomendations: 1- NPO for 6 hours except for meds 2- Flush PEG tube every 6 hours with water and after each PEG feeding 3- May resume regular diet in the morning 4- May use Ensure or Boost etc. for PEG tube feeding PATIENT CONDITION: stable DISPOSITION: Observation REPEAT EXAM: NONE Roxanna Rubin MD eSigned: Roxanna Rubin MD 10/17/2018 3:05 PM cc:
[2018-10-17] MEDS: Methadone 10 MG Tablet PO SCH (16:30)
[2018-10-17] MEDS: Metoprolol Tartrate 50 MG Tablet PO SCH ×2 (16:34→21:29)
--- NOTE | 2018-10-17 17:49 | P.PNID ---
Subjective Remarks: ID coverage for DR Jeronimo. Patient is laying in bed and thrashing the head from side to side. No fever. Patient is a 73-year-old male, initially presented at [facility] for evaluation of acute onset bilateral lower extremity weakness. He apparently woke up on the morning of presentation with numbness and weakness of bilateral lower extremity. He tried to walk but fell on his face. Patient presented to [facility] and CT of the lumbar spine showed a large area of soft attenuation in the ventral epidural space at L2-L3 suspicious for a large disc extrusion with spinal canal stenosis. He was transferred here at [facility] for neurosurgical evaluation. He underwent surgery on October 02 and had L2-L5 posterior spinal fusion, and left L2-L3 microdiscectomy. He was on the vent postoperatively. He had a repeat MRI on October 03 which showed disc herniation, and the patient underwent surgery again and had a right discectomy L2-L3. Patient has had problem with his respiratory status. He was extubated and reintubated 3 times, and subsequently underwent tracheostomy on October 08. On October 09 he was found to have a CSF leak, and underwent placement of a lumbar drain. He continues to have drainage, and he went to surgery again on October 14 and had revision of the lumbar wound, and repair of the leak, and has a lumbar drain again. Infectious disease consultation has been requested to assist with antibiotic management in a patient who has had a CSF leak. Allergies/Adverse Reactions: Allergies No Known Allergies (Unknown, Uncoded 10/27/17 16:04) Objective Vital Signs 10/16/18 18:00 10/16/18 19:00 10/16/18 19:24 Temperature 98.6 F Pulse Rate 69 52 L Respiratory Rate 17 14 14 Pulse Oximetry 97 100 97 10/16/18 19:26 10/16/18 20:00 10/16/18 21:00 Temperature Pulse Rate 56 L 73 61 Respiratory Rate 14 15 13 Pulse Oximetry 97 93 L 10/16/18 22:00 10/16/18 23:00 10/16/18 23:08 Temperature Pulse Rate 55 L 52 L Respiratory Rate 19 15 14 Pulse Oximetry 93 L 94 L 94 L 10/16/18 23:10 10/17/18 00:00 10/17/18 01:00 Temperature 98.6 F Pulse Rate 52 L 89 66 Respiratory Rate 15 27 H 14 Pulse Oximetry 96 98 10/17/18 01:57 10/17/18 02:00 10/17/18 03:00 Temperature Pulse Rate 69 51 L Respiratory Rate 16 20 15 Pulse Oximetry 98 98 96 10/17/18 03:07 10/17/18 04:00 10/17/18 05:00 Temperature 98.8 F Pulse Rate 54 L 74 94 H Respiratory Rate 15 17 24 Pulse Oximetry 99 95 10/17/18 05:02 10/17/18 06:00 10/17/18 07:00 Temperature 98.8 F Pulse Rate 93 H 92 H 80 Respiratory Rate 23 22 14 Pulse Oximetry 94 L 100 100 10/17/18 08:00 10/17/18 08:05 10/17/18 09:00 Temperature 98.4 F Pulse Rate 79 Respiratory Rate 14 16 14 Pulse Oximetry 100 97 96 10/17/18 10:00 10/17/18 11:00 10/17/18 11:58 Temperature Pulse Rate 93 H 109 H 114 H Respiratory Rate 14 30 H 20 Pulse Oximetry 98 97 97 10/17/18 12:00 10/17/18 13:00 10/17/18 14:00 Temperature 98.2 F Pulse Rate 116 H 124 H 144 H Respiratory Rate 30 H 24 27 H Pulse Oximetry 97 96 96 10/17/18 15:00 10/17/18 16:00 10/17/18 16:24 Temperature 98.7 F Pulse Rate 96 H 128 H 132 H Respiratory Rate 31 H 31 H 33 H Pulse Oximetry 94 L 97 Intake & Output 10/16/18 10/17/18 10/17/18 18:59 06:59 18:59 Intake Total 1222 / 1222 1672 / 1672 3445.0 / 3445.0 Output Total 1085 / 1085 760 / 760 75 / 75 Balance 137 / 137 912 / 912 3370.0 / 3370.0 Weight 97.4 kg Intake: IV 765 / 765 700 / 700 2845.0 / 2845.0 Precedex Inj 800 MCG In NS Inj 100 / 100 92 ML @ 0.2 MCG/KG/HR 2.29 mls/ hr IV.CONT TITRATE PRN Rx#: [id number] Precedex Inj 200 MCG In NS Inj 150 / 150 150 / 150 48 ML @ 0.2 MCG/KG/HR 4.58 mls/ hr IV.CONT TITRATE PRN Rx#: [id number] LR 1000 mL Inj 1,000 ML @ 100 2000 / 2000 mls/hr IV.CONT .Q10H [facility] Rx#: [id number] Versed Inj 100 mg In 100 ml @ 2 34.5 / 34.5 MG/HR 2 mls/hr IV.CONT TITRATE PRN Rx#:[id number] Azactam Inj 2,000 MG In NS Inj 100 / 100 200 / 200 100 / 100 100 ML @ 200 mls/hr IV.SIG Q8H [facility] Rx#:[id number] Vancomycin Inj 1,500 MG In NS 515 / 515 515 / 515 Inj 500 ML @ 250 mls/hr IV.SIG Q24H [facility] Rx#:[id number] fentaNYL 10 mcg/mL Premix Drip 250 / 250 195.5 / 195.5 2,500 mcg In 250 ml @ 50 MCG/HR 5 mls/hr IV.SIG TITRATE PRN Rx #:[id number] Tube Feeding 337 / 337 322 / 322 Tube Irrigant 120 / 120 Anesthesia Amount 600 / 600 Other 250 / 250 Rbc As-3 Leukoreduced Unit 250 / 250 [id number] Intake (Blood Product) Amt 400 / 400 Rbc As-3 Leukoreduced Unit 400 / 400 [id number] Output: Urine Amount (Catheter) 1000 / 1000 700 / 700 Indwelling Urethral Catheter 1000 / 1000 700 / 700 Wound Drainage 85 / 85 60 / 60 75 / 75 Posterior Lumbar 85 / 85 60 / 60 75 / 75 Other: Date of Last Bowel Movement 10/16/18 10/16/18 10/16/18 # Bowel Movements 0 10/16/18 10:18 Lumbar Puncture Gram Stain - Final 10/16/18 10:18 Lumbar Puncture CSF Culture - Preliminary No growth in 24 hours 10/14/18 13:51 Tissue - Other Gram Stain - Final 10/14/18 13:51 Tissue - Other Wound Culture - Final No growth in 72 hours (aerobically and anaerobically ) 10/14/18 13:51 Wound - Back Gram Stain - Final 10/14/18 13:51 Wound - Back Wound Culture - Final No growth in 72 hours (aerobically and anaerobically ) 10/14/18 13:51 Tissue - Other Acid Fast Bacilli Smear - Final No acid fast bacilli seen 10/14/18 13:51 Tissue - Other Mycobacterial Culture - Pending 10/14/18 13:51 Wound - Back Acid Fast Bacilli Smear - Final No acid fast bacilli seen 10/14/18 13:51 Wound - Back Mycobacterial Culture - Pending 10/14/18 13:51 Tissue - Other Fungal Smear - Final No fungal elements seen 10/14/18 13:51 Tissue - Other Fungal Culture - Pending 10/14/18 13:51 Wound - Back Fungal Smear - Final No fungal elements seen 10/14/18 13:51 Wound - Back Fungal Culture - Pending Lab - Hematology Results 10/16/18 10/17/18 10/17/18 14:05 04:05 09:43 WBC 7.9 RBC 2.37 L Hgb 6.8 L* 7.7 L Hct 20.9 L* 22.4 L MCV 88.1 MCH 28.9 MCHC 32.7 RDW 19.6 H Plt Count 175 MPV 7.8 Prelim Diff (Auto) Slide review pending Neut % (Auto) 79.1 H Lymph % (Auto) 9.3 Ness % (Auto) 8.3 H Eos % (Auto) 3.0 Baso % (Auto) 0.3 Neut # (Auto) 6.2 Lymph # (Auto) 0.7 L Ness # (Auto) 0.7 Eos # (Auto) 0.2 Baso # (Auto) 0.0 WBC Differential . Diff Scan Auto diff confirmed Differential Comment . Ovalocytes 1+ H ESR Greater than 140 H Lab - Chemistry Results 10/16/18 10/16/18 10/17/18 14:05 14:05 04:05 Sodium 147 H Potassium 3.6 D Chloride 115 H Carbon Dioxide 22.5 Anion Gap 10 BUN 54 H Creatinine 1.38 H Estimated GFR 50 L Random Glucose 127 H Calcium 8.9 Total Bilirubin 0.3 AST 33 ALT 23 Alkaline Phosphatase 105 Ammonia 22 Total Creatine Kinase 53 Total Protein 5.5 L Albumin 1.6 L Vitamin B12 1791 H TSH 1.560 1.870 Free T4 1.26 Imaging: ITS Impressions Lumbar Spine X-Ray 10/04/18 00:00 CONCLUSION: Lumbar Puncture Fluoroscopy 10/09/18 00:00 CONCLUSION: 1. Uncomplicated lumbar drain placement as above. Lumbar Spine MRI 10/09/18 00:00 CONCLUSION: 1. Significant improvement in the postoperative appearance of the spine with good decompression at L2-3. There is no significant thecal sac impingement. 2. Moderate facet disease is seen in the fused levels stable interval. Thoracic Spine MRI 10/09/18 00:00 CONCLUSION: 1. Significant cervical spinal stenosis, not evaluated on this exam. 2. There is no intrathoracic cord compression. 3. Conus is unremarkable. Chest X-Ray 10/13/18 04:00 CONCLUSION: Decreased bilateral pulmonary opacity. Likely represents decreased pulmonary edema. Cervical Spine MRI 10/16/18 11:58 CONCLUSION: Mild spondylosis and disc disease. No significant canal or foraminal compromise. No explanation for myelopathy. Head MRI 10/16/18 11:58 CONCLUSION: No acute intracranial findings. Physical Exam: GENERAL: Patient not following command. HEENT: Pupils reactive to light. Extraocular movements intact. No icterus. NECK: Supple without adenopathy. No swelling. LUNGS: Clear decreased breath sounds. HEART: Regular S1-S2. ABDOMEN: Positive bowel sounds, soft. BACK: Lumbar drain in place. EXTREMITIES: No clubbing cyanosis or edema. SKIN: Light erythema of the skin. NEUROLOGIC: Unable to assess PSYCH: Unable to assess. Assessment and Plan - Plan Impression Recurrent CSF leak, S/P surgery x2 for leak, last surgery 10/14. Culture pending. Drug eruption, better, likely from Cefepime Recurrent respiratory failure Encephalopathy Recommendation Continue IV Azactam. Continue Vancomycin. Follow new CSf cultures Follow rash Monitor progress Weaning per CCM D/W OZZY
[2018-10-17] MEDS: Acetaminophen 325 MG Tablet PO PRN (20:44)
[2018-10-17] MEDS ORDERED: Metoprolol Tartrate 50 MG Tablet PO SCH (21:00)
[2018-10-18 04:40] LABS: Baso # (Auto) 0.1 th/mm3 (0.0-0.2); Baso % (Auto) 0.7 % (0.0-2.0); Eos % (Auto) 0.5 % (0.0-4.0); Lymph # (Auto) 0.7 th/mm3 (1.0-4.8); Lymph % (Auto) 6.2 % (9.0-44.0); Mean Corpuscular HGB Conc 32.3 % (32.0-36.0); Mean Corpuscular Hemoglobin 27.9 pg (27.0-34.0); Mean Corpuscular Volume 86.5 fL (80.0-100.0); Mean Platelet Volume 7.8 fL (7.0-11.0); Mono # (Auto) 0.9 th/mm3 (0.0-0.9); Neut % (Auto) 84.6 % (16.0-70.0); Platelet Count 187 th/mm3 (150-450); Red Blood Count 2.47 mil/mm3 (4.50-5.90); Red Cell Distribution Width 20.1 % (11.6-17.2); White Blood Count 10.7 th/mm3 (4.0-11.0)
[2018-10-18 05:09] LABS: Hematocrit 21.4 % (39.0-51.0); Hemoglobin 6.9 gm/dL (13.0-17.0)
[2018-10-18] MEDS: Methadone 10 MG Tablet PO SCH ×2 (05:35→16:59)
[2018-10-18] MEDS: Oral Hygiene Kit OROPHARYNG SCH ×3 (05:35→17:00)
[2018-10-18] MEDS: Acetaminophen 325 MG Tablet PO PRN (07:18)
--- NOTE | 2018-10-18 08:06 | P.PNNS ---
Subjective Interval history: All sedation held, moving head and arms but not to command Physical Exam Vital signs: Vital Signs 10/17/18 08:05 10/17/18 09:00 10/17/18 10:00 Temperature Pulse Rate 93 H Respiratory Rate 16 14 14 Pulse Oximetry 97 96 98 10/17/18 11:00 10/17/18 11:58 10/17/18 12:00 Temperature 98.2 F Pulse Rate 109 H 114 H 116 H Respiratory Rate 30 H 20 30 H Pulse Oximetry 97 97 97 10/17/18 13:00 10/17/18 14:00 10/17/18 15:00 Temperature Pulse Rate 124 H 144 H 96 H Respiratory Rate 24 27 H 31 H Pulse Oximetry 96 96 94 L 10/17/18 16:00 10/17/18 16:24 10/17/18 17:00 Temperature 98.7 F Pulse Rate 128 H 132 H 125 H Respiratory Rate 31 H 33 H 21 Pulse Oximetry 97 98 10/17/18 18:00 10/17/18 19:00 10/17/18 20:00 Temperature 102.0 F H Pulse Rate 106 H 110 H 115 H Respiratory Rate 21 22 Pulse Oximetry 97 97 97 10/17/18 20:08 10/17/18 21:00 10/17/18 22:00 Temperature Pulse Rate 117 H 120 H 102 H Respiratory Rate 24 Pulse Oximetry 97 97 97 10/17/18 23:00 10/17/18 23:07 10/18/18 00:00 Temperature 99.9 F H Pulse Rate 94 H 101 H 108 H Respiratory Rate 66 H 21 43 H Pulse Oximetry 98 98 97 10/18/18 01:00 10/18/18 02:00 10/18/18 03:00 Temperature Pulse Rate 106 H 113 H 118 H Respiratory Rate 22 21 20 Pulse Oximetry 99 97 100 10/18/18 03:17 10/18/18 04:00 10/18/18 05:00 Temperature 100.1 F H Pulse Rate 110 H 117 H 120 H Respiratory Rate 28 H 23 21 Pulse Oximetry 98 95 95 10/18/18 06:00 10/18/18 06:21 Temperature Pulse Rate 111 H Respiratory Rate 22 22 Pulse Oximetry 94 L Intake & Output 10/17/18 10/18/18 10/18/18 18:59 06:59 18:59 Intake Total 3445.0 / 3445.0 1461 / 1461 Output Total 1320 / 1320 1170 / 1170 Balance 2125.0 / 2125.0 291 / 291 Weight 95 kg Intake: IV 2845.0 / 2845.0 1200 / 1200 LR 1000 mL Inj 1,000 ML @ 100 2000 / 2000 1000 / 1000 mls/hr IV.CONT .Q10H [facility] Rx#: [id number] Versed Inj 100 mg In 100 ml @ 2 34.5 / 34.5 MG/HR 2 mls/hr IV.CONT TITRATE PRN Rx#:[id number] Azactam Inj 2,000 MG In NS Inj 100 / 100 200 / 200 100 ML @ 200 mls/hr IV.SIG Q8H [facility] Rx#:[id number] Vancomycin Inj 1,500 MG In NS 515 / 515 Inj 500 ML @ 250 mls/hr IV.SIG Q24H [facility] Rx#:[id number] fentaNYL 10 mcg/mL Premix Drip 195.5 / 195.5 2,500 mcg In 250 ml @ 50 MCG/HR 5 mls/hr IV.SIG TITRATE PRN Rx #:[id number] Tube Feeding 141 / 141 Water Bolus Amount 120 / 120 Anesthesia Amount 600 / 600 Output: Stool 0 / 0 Urine Amount (Catheter) 1200 / 1200 1000 / 1000 Indwelling Urethral Catheter 1200 / 1200 1000 / 1000 Wound Drainage 120 / 120 170 / 170 Posterior Lumbar 120 / 120 170 / 170 Other: Date of Last Bowel Movement 10/16/18 10/16/18 # Bowel Movements 0 # Incontinent Bowel Movements 0 Narrative: shaking head left/right moving upper extremities more seems to localize to daughter's voice (Recognize) moving lower extremities (starting) dressing c/d/i - Urinary Catheter Management Indwelling Urethral Catheter Cath placed during this visit: yes Reason for continuing: Hourly intake/output Insertion date: 10/02/18 Insertion time: 20:32 Assessment and Plan - Plan 73yoM po (10/02/18) L2-5 revision fusion and left L2/3 discectomy 10/15/18 pod#1 revision of lumbar wound. Keep Lumbar Drain at 5cm below EAC, goal 160/ 12 hours (or 120/8 hour shift). 10/16/18 CSF starting to show yellow-- sample sent to micro/lab dressing dry. continue lumbar drainage until Friday10/17/18 f/u CSF-- negative thus far. MRI/Brain/C-spine/EEG-negative -- appreciate Neurology consult Lumbar drain until Friday, then clamp, then d/c Friday if dressing continues to be dry 10/18/18 Continue lumbar drainage until tomorrow then clamp and observe back dressing. Appreciate Neurology consult re: difficult to explain neuro exam PEG tube yesterday appreciate ID recs/abx re: rash
[2018-10-18] MEDS: QUEtiapine 100 MG Tablet PO SCH ×2 (08:15→20:02)
[2018-10-18] MEDS: Metoprolol Tartrate 50 MG Tablet PO SCH ×2 (08:15→20:02)
[2018-10-18] MEDS: Chlorhexidine 0.12% Oral Kit 15 ML UDC OROPHARYNG SCH ×2 (08:15→20:02)
[2018-10-18] MEDS: Famotidine PF Inj 20 MG/2 ML Vial IV.PUSH SCH ×2 (08:16→20:03)
[2018-10-18] MEDS: Divalproex 125 MG Sprinkles Capsule PO SCH ×2 (08:16→20:02)
[2018-10-18] MEDS: Senna/Docusate Sodium 8.6/50 MG Tablet PO SCH ×2 (08:16→20:02)
[2018-10-18] MEDS: Sodium Chloride 0.9% 2 ML Flush BID IV.FLUSH SCH ×2 (08:16→20:03)
--- NOTE | 2018-10-18 10:30 | P.PNCC ---
Subjective Subjective Remarks/Hospital Course: Patient is a 73-year-old male with past medical history significant for hypertension, COPD, Prostate carcinoma, history of previous lumbar laminectomy who came to the [facility] emergency department as a transfer from transfer from [facility]. He was accepted by neurosurgery Dr. Peter for acute onset bilateral lower extremity weakness. Patient states that he woke up this morning around 6 AM with numbness and weakness of bilateral lower extremity. On attempt to walk he fell on his face due to weakness. Patient states that the strength got slight better since then. CT scan of the lumbar spine large area of soft attenuation attenuation in the ventral epidural space L2-L3 level suspicious for large disc extrusion with spinal canal stenosis with differential diagnosis involving hemorrhage, there is also at least moderate bilateral neural foraminal stenosis. I evaluate the patient in the ED. He complains of weakness more on the left leg which he is unable to lift. There is generalized numbness but he is able to feel my touch. Critical care was requested to admit the patient to the ICU. Discussed with Dr. Mittal ED and Dr. Peter neurosurgery. A stat MRI of the lumbar spine had been ordered. 10/03: Remains intubated sedated. Remains on Levophed at 10 mcg/min to maintain map above 70. Patient is s/p L2 to L5 posterior spinal fusion, Left L2 /3 microdiscectomy. (MRI showed large herniated disc at L2/3 and flex/ex showing instability at this level). On sedation hold patient is moving all 4 extremities. Hb 8.3 will transfuse 1 unit PRBC due to hypotension 10/04: Remains intubated sedated remains on 8 mcg/min of Levophed to maintain map above 75. Transfusing 1 unit PRBC for hemoglobin 7.4. post-op MRI with significant disc herniation at L2/3. Scheduled for surgery today with Dr. Peter 10/05: Patient underwent surgery on 10/04/2018 for removal residual disc at L2/ 3 right side based on post-op MRI. (s/p L2-5 revision fusion and left L2/3 discectomy on 10/02/18). Today patient's hypoxemia had improved, he was awake but on lightening sedation was very agitated so after a short CPAP trial patient was extubated. Shortly after extubation patient became very agitated requiring four-point restraints and physically nurses having to restrain him. 2 mg IV Ativan was given following which patient became partially responsive with obstructive airway sounds. Shortly became hypoxemic desaturated, became bradycardic in 40s and systolic blood pressure does drop to mid 40s. I was emergently called to the bedside I started bag and mask ventilation immediately. Half ampule of epinephrine was post IV. His heart rate in systolic blood pressure improved with bag and mask ventilation and epinephrine push however he remained unresponsive. Emergently intubated and placed on mechanical ventilation. Once more responsive will start on sedation with Versed. Start Levophed to maintain map above 65. Postintubation chest x-ray is pending. 10/06: Remains intubated heavily sedated for vent synchrony. Patient gets very agitated on holding sedation. We will start Precedex to facilitate vent weaning. Hemoglobin is 7.1, 1 unit of PRBC followed by IV Lasix ordered. 10/07: Agitated. TVs > 1.0 liter spontaneous. Extubated. Patient required reintubation about 5 hours later due to hypoxemia. 10/08: Intubated for the third time last evening. He is unable to tolerate extubation due to a combination of underlying lung disease and severe agitation. If the family wishes to proceed he will require tracheostomy for safe weaning from the ventilator. His baseline mental status is apparently pretty close to normal. 10/09: Tracheostomy placed yesterday. Large amounts of white thick secretions encountered. Chest x-ray continues with a pattern of pulmonary edema. We will continue aggressive twice daily diuretic therapy. Ostensibly plan is to transfer to [facility] at the beginning of next week. One family member is not on board with that yet however. 10/10: Lumbar drain has been placed. Continue spontaneous breathing trials through tracheostomy. Continue discussions with family about transfer to LTAC for long-term weaning. No evidence of infection. 10/11: Effective diuresis but now developing a mild prerenal azotemia. Will hold off for a while and gently hydrate. Now the tracheostomy is performed there is not quite urgency to desiccate his lungs. Hopefully we can work toward a cyst transferred to [facility] after lumbar drain discontinued. 10/12: Following tracheostomy we will continue with attempts at ventilator weaning. Patient has a lumbar drain in place in an attempt to stop a lumbar region wound CSF leak. [facility] will take this patient for long-term weaning once lumbar drain is out. Gentle hydration continues until such time as prerenal azotemia is attenuated. Continue enteral nutrition. 10/13: Remains on mechanical ventilation via tracheostomy. Still on significant sedation due to agitation issues. Lumbar drain continues to drain. Possible surgery tomorrow. 10/14: Remains sedated, on mechanical ventilation via tracheostomy. Scheduled for surgery today for CSF leak lumbar region. 10/15: Remains sedated on mechanical ventilation via tracheostomy. Status post revision of lumbar wound on 10/14 by neurosurgery. Lumbar drain in place and drained 120 cc since yesterday. 10/16: Remains on mechanical ventilation via tracheostomy. Still dealing with agitation on lightening sedation. On Precedex/fentanyl. Received 1 dose of Geodon last night. Also getting as needed Ativan and Seroquel. 10/17: We continue to deal with bouts of agitation which hamper her ability to wean him from the ventilator. Gas exchange remains acceptable. He has required 1 unit of blood transfusion. 10/18: Plan is to clamp drain friday and remove mid-week if lumbar dressing stays dry. Tolerating CPAP today we will try to progress to T piece. Objective Vital Signs / I&O: Vital Signs 10/17/18 11:00 10/17/18 11:58 10/17/18 12:00 Temperature 98.2 F Pulse Rate 109 H 114 H 116 H Respiratory Rate 30 H 20 30 H Pulse Oximetry 97 97 97 10/17/18 13:00 10/17/18 14:00 10/17/18 15:00 Temperature Pulse Rate 124 H 144 H 96 H Respiratory Rate 24 27 H 31 H Pulse Oximetry 96 96 94 L 10/17/18 16:00 10/17/18 16:24 10/17/18 17:00 Temperature 98.7 F Pulse Rate 128 H 132 H 125 H Respiratory Rate 31 H 33 H 21 Pulse Oximetry 97 98 10/17/18 18:00 10/17/18 19:00 10/17/18 20:00 Temperature 102.0 F H Pulse Rate 106 H 110 H 115 H Respiratory Rate 21 22 Pulse Oximetry 97 97 97 10/17/18 20:08 10/17/18 21:00 10/17/18 22:00 Temperature Pulse Rate 117 H 120 H 102 H Respiratory Rate 24 Pulse Oximetry 97 97 97 10/17/18 23:00 10/17/18 23:07 10/18/18 00:00 Temperature 99.9 F H Pulse Rate 94 H 101 H 108 H Respiratory Rate 66 H 21 43 H Pulse Oximetry 98 98 97 10/18/18 01:00 10/18/18 02:00 10/18/18 03:00 Temperature Pulse Rate 106 H 113 H 118 H Respiratory Rate 22 21 20 Pulse Oximetry 99 97 100 10/18/18 03:17 10/18/18 04:00 10/18/18 05:00 Temperature 100.1 F H Pulse Rate 110 H 117 H 120 H Respiratory Rate 28 H 23 21 Pulse Oximetry 98 95 95 10/18/18 06:00 10/18/18 06:21 10/18/18 07:00 Temperature Pulse Rate 111 H 112 H Respiratory Rate 22 22 27 H Pulse Oximetry 94 L 93 L 10/18/18 08:00 10/18/18 08:06 10/18/18 08:59 Temperature 102 F H 99.4 F Pulse Rate 127 H 125 H 88 Respiratory Rate 28 H 27 H 27 H Pulse Oximetry 97 96 98 10/18/18 09:00 10/18/18 10:00 Temperature Pulse Rate 89 88 Respiratory Rate 23 23 Pulse Oximetry 96 98 Intake & Output 10/17/18 10/18/18 10/18/18 18:59 06:59 18:59 Intake Total 3445.0 / 3445.0 1461 / 1461 1000 / 1000 Output Total 1320 / 1320 1170 / 1170 Balance 2125.0 / 2125.0 291 / 291 1000 / 1000 Weight 95 kg Intake: IV 2845.0 / 2845.0 1200 / 1200 1000 / 1000 LR 1000 mL Inj 1,000 ML @ 100 2000 / 2000 1000 / 1000 1000 / 1000 mls/hr IV.CONT .Q10H [facility] Rx#: [id number] Versed Inj 100 mg In 100 ml @ 2 34.5 / 34.5 MG/HR 2 mls/hr IV.CONT TITRATE PRN Rx#:[id number] Azactam Inj 2,000 MG In NS Inj 100 / 100 200 / 200 100 ML @ 200 mls/hr IV.SIG Q8H [facility] Rx#:[id number] Vancomycin Inj 1,500 MG In NS 515 / 515 Inj 500 ML @ 250 mls/hr IV.SIG Q24H [facility] Rx#:[id number] fentaNYL 10 mcg/mL Premix Drip 195.5 / 195.5 2,500 mcg In 250 ml @ 50 MCG/HR 5 mls/hr IV.SIG TITRATE PRN Rx #:[id number] Tube Feeding 141 / 141 Water Bolus Amount 120 / 120 Anesthesia Amount 600 / 600 Output: Stool 0 / 0 Urine Amount (Catheter) 1200 / 1200 1000 / 1000 Indwelling Urethral Catheter 1200 / 1200 1000 / 1000 Wound Drainage 120 / 120 170 / 170 Posterior Lumbar 120 / 120 170 / 170 Other: Date of Last Bowel Movement 10/16/18 10/16/18 10/16/18 # Bowel Movements 0 # Incontinent Bowel Movements 0 Result Diagrams: 10/18/18 04:20 10/17/18 04:05 Objective Remarks: GENERAL: Elderly gentleman, ongoing vent weaning. Holding sedation. SKIN: warm/dry. HEAD: Normocephalic. Atraumatic EYES: No injection or drainage. No conjunctival icterus or injection ENT: tracheostomy in place, site clean and dry NECK: Supple. Tracheostomy in place CARDIOVASCULAR: S1-S2 normal, no murmurs. Neck veins remain full. RESPIRATORY: Air entry equal bilaterally, few scattered rhonchi, no wheezes. Plentiful mobile secretions persist. GASTROINTESTINAL: Abdomen soft, non-tender, nondistended. Bowel sounds are active. No guarding. MUSCULOSKELETAL: No cyanosis, trace edema. Warm, well-perfused. NEURO: Intubated via tracheostomy, lightly sedated for vent synchrony. Moves all 4 limbs to stimulation. Shanell episodically quite agitated. Of note, patient was perfectly well oriented and cooperative on admission. Lumbar drain in place with dressing over surgical site clean dry and intact, dry. 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 Code(s): M47.16 - Other spondylosis with myelopathy, lumbar region Status: Acute (2) Weakness of lower extremity Code(s): R29.898 - Other symptoms and signs involving the musculoskeletal system Status: Acute (3) COPD (chronic obstructive pulmonary disease) Code(s): J44.9 - Chronic obstructive pulmonary disease, unspecified Status: Chronic (4) History of prostate cancer Code(s): Z85.46 - Personal history of malignant neoplasm of prostate Status: Chronic (5) History of hypertension Code(s): Z86.79 - Personal history of other diseases of the circulatory system Status: Chronic - Assessment and Plan Plan: ASSESSMENT: Acute hypoxemic hypercarbic/hypoxemic respiratory failure Respiratory arrest after receiving Ativan on 10/05/2018 Hypotension now resolved Lumbar cord compression likely secondary to large herniated disc, with lower extremity weakness Right L2/L3 discectomy 10/04/2018 for removal residual disc at right L2/3 s/p L2-5 revision fusion and left L2/3 discectomy on 10/02/18. Hypotension on pressors History of previous lumbar posterior fusion and microdiscectomy by Dr. Hansen Acute on chronic kidney disease Anemia requiring transfusion History of prostate cancer COPD History of hypertension PLAN: NEURO: -MRI showing large herniated disc at L2/3 and flex/ex showing instability at this level. -s/p L2-5 revision fusion and left L2/3 discectomy on 10/02/18. -post-op MRI with significant disc herniation at right L2/3 despite resection, Right L2/L3 discectomy 10/04/2018 - Lumbar drain in place for CSF leak. Status post lumbar wound revision on by neurosurgery -Spine precautions -Currently sedated with Versed/ propofol and fentanyl. -Started Precedex to facilitate vent weaning, Seroquel 50 twice daily -Neurosurgery Dr. Peter. -Geodon prn, to take p.o. atypical antipsychotic Seroquel. Valproate dose increased on 10/13 -Continue to hold medications for agitation. RESP: -Extubated 10/05/18 however became unresponsive and hypoxic after receiving Ativan for agitation -Emergently reintubated and placed on mechanical ventilation -Currently on PRVC/AC -DuoNeb every 6 hours scheduled and as needed -Tapered off solumedrol. -Aggressive pulmonary toilet -f/u sputum culture, continue empiric cefepime -Extubated again 10/07 -Required reintubation 5 hours after extubation due to secretions and hypoxemia. Situation made worse by underlying agitation. -Tracheostomy performed 10/08 -Continue spontaneous breathing trials. -Hold diuretics. CV: -Cardiac decompensation most likely secondary to pulmonary problems, hypoxemia -Gas exchange improving GI: - IV famotidine. Continue tube feeds -Bowel regimen : -Monitor renal function closely. -Strict intake output, monitor and replete elect lites, follow given creatinine ID: -Sputum culture, stop cefepime due to rash, switched to IV Azactam and vancomycin due to rash on 10/16. Benadryl as needed for rash - ID consult for antibiotic management HEME: -Transfused 1 unit PRBC -Monitor CBC, coags ENDO: -Electrolyte replacement per protocol PROPH: -Bilateral lower extremity SCDs. No chemical DVT prophylaxis due to spinal surgery/continue famotidine LINES: -Utilize peripheral IVs, central line as needed -PT evaluate and treat All impression: Patient remains critically ill and ventilator dependent and we have been unable to keep him extubated for more than a few hours. His baseline mental status was quite good prior to this and so far the family has requested ongoing aggressive care. We will continue to try to clean up his lungs and encourage ventilator weaning. Lumbar drain in place, hold transfer to LTAC for now. It seems the gentleman either has pleural effusions or renal failure depending how successfully we have diuresed him. He remains unstable and will likely be a long-term vent weaning problem, plan LTAC transfer when CSF drain is removed.
--- NOTE | 2018-10-18 11:08 | P.PNNEU ---
Subjective Active Medications: Active Medications Acetaminophen (Tylenol) 650 mg PO Q6H PRN PRN Reason: PAIN 1-10 AND/OR FEVER >101F Last Admin: 10/18/18 07:18 Dose: 650 mg Al Hydroxide/Mg Hydroxide (Milk Of Magnbecca Liq) 30 ml PO Q12H PRN PRN Reason: Mild Constipation Last Admin: 10/15/18 06:44 Dose: 30 ml Albuterol (Albuterol Neb (Prn)) 2.5 mg NEB Q2HR NEB PRN PRN Reason: SHORTNESS OF BREATH/WHEEZING Albuterol (Duoneb Neb (Adam)) 1 ampul NEB Q4HR NEB ADAM Last Admin: 10/18/18 08:00 Dose: 1 ampul Bisacodyl (Dulcolax Supp) 10 mg RECTAL DAILY PRN PRN Reason: SEVERE CONSITIPATION Last Admin: 10/16/18 00:38 Dose: 10 mg Chlordiazepoxide (Librium) 5 mg PO Q12H [facility] Last Admin: 10/18/18 10:02 Dose: 5 mg Chlorhexidine Gluconate (Peridex 0.12% Oral Kit) 15 ml OROPHARYNG BID@0800, 2000 [facility] Last Admin: 10/18/18 08:15 Dose: 15 ml Diphenhydramine HCl (Benadryl Inj) 25 mg IV.PUSH Q6HR [facility] Last Admin: 10/18/18 05:35 Dose: 25 mg Divalproex Sodium (Depakote Sprinkles) 500 mg PO BID [facility] Last Admin: 10/18/18 08:16 Dose: 500 mg Famotidine (Pepcid Pf Inj) 10 mg IV.PUSH Q12HR [facility] Last Admin: 10/18/18 08:16 Dose: 10 mg Furosemide (Lasix Inj) 40 mg IV.PUSH BID@0900,1800 [facility] Last Admin: 10/11/18 08:53 Dose: 40 mg Hydralazine HCl (Apresoline Inj) 20 mg IV.PUSH Q2H PRN PRN Reason: SBP > 160 Last Admin: 10/17/18 13:27 Dose: 20 mg Fentanyl (Fentanyl 10 Mcg/Ml Premix Drip) 2,500 mcg in 250 mls @ 5 mls/hr IV.SIG TITRATE PRN; Protocol PRN Reason: Per Protocol Last Titration: 10/17/18 17:22 Dose: Infused Norepinephrine Bitartrate (Levophed-Dextrose 4 Mg/250 Ml Drip) 4 mg in 250 mls @ 7.5 mls/hr IV.SIG TITRATE PRN; Protocol PRN Reason: Per Protocol Last Titration: 10/11/18 07:00 Dose: 0 mcg/min, 0 mls/hr Propofol (Diprivan 1000 Mg/100 Ml Inj) 1,000 mg in 100 mls @ 2.835 mls/hr IV.CONT TITRATE PRN; Protocol PRN Reason: Per Protocol Last Titration: 10/16/18 19:00 Dose: 0 mcg/kg/min, 0 mls/hr Midazolam HCl (Versed Inj) 100 mg in 100 mls @ 2 mls/hr IV.CONT TITRATE PRN; Protocol PRN Reason: PER PROTOCOL Last Titration: 10/17/18 17:26 Dose: Infused Lactated Ringer's (Lr 1000 Ml Inj) 1,000 mls @ 100 mls/hr IV.CONT .Q10H [facility] Last Admin: 10/18/18 10:02 Dose: 50 mls/hr Vancomycin HCl 1,500 mg/ (Sodium Chloride) 515 mls @ 250 mls/hr IV.SIG Q24H [facility] Last Infusion: 10/17/18 14:08 Dose: Infused Aztreonam 2,000 mg/ Sodium (Chloride) 100 mls @ 200 mls/hr IV.SIG Q8H [facility] Last Infusion: 10/18/18 06:50 Dose: Infused Dexmedetomidine HCl 800 mcg/ (Sodium Chloride) 100 mls @ 2.29 mls/hr IV.CONT TITRATE PRN; Protocol PRN Reason: Per Protocol Last Titration: 10/17/18 09:36 Dose: 0 mcg/kg/hr, 0 mls/hr Lactulose (Lactulose Liq) 30 ml PO DAILY PRN PRN Reason: SEVERE CONSITIPATION Last Admin: 10/15/18 19:44 Dose: 30 ml Lorazepam (Ativan Inj) 0.5 mg IV.PUSH Q6H PRN PRN Reason: SEVERE AGITATION Last Admin: 10/17/18 13:41 Dose: 0.5 mg Methadone HCl (Dolophine) 10 mg PO Q12H [facility] Last Admin: 10/18/18 05:35 Dose: 10 mg Metoprolol Tartrate (Lopressor Inj) 5 mg IV.PUSH Q4H PRN PRN Reason: Pulse > 120 Metoprolol Tartrate (Lopressor) 50 mg PO BID [facility] Last Admin: 10/18/18 08:15 Dose: 50 mg Miscellaneous (Pill Splitter) 1 each OTHER UNSCH PRN PRN Reason: PILL SPLITTER Miscellaneous Information ([facility] Ordered Lab Info) 0 each OTHER ONCE ONE Stop: 10/18/18 12:46 Miscellaneous Medication () 1 each OROPHARYNG 0000,0400,1200,1600 [facility] Last Admin: 10/18/18 05:35 Dose: 1 each Morphine Sulfate (Morphine Inj) 2 mg IV.PUSH Q4H PRN PRN Reason: 6-10 pain Last Admin: 10/07/18 21:47 Dose: 2 mg Oxycodone HCl (Roxicodone Intensol Liq) 10 mg PO Q6H [facility] Last Admin: 10/18/18 05:35 Dose: 10 mg Pharmacy Profile Note (Vancomycin Consult Pharmacy) 1 each OTHER UNSCH PRN PRN Reason: Pharmacy to dose Quetiapine Fumarate (Seroquel) 150 mg PO BID [facility] Last Admin: 10/18/18 08:15 Dose: 150 mg Senna/Docusate Sodium (Hsazia-Colace) 1 tab PO BID [facility] Last Admin: 10/18/18 08:16 Dose: 1 tab Sennosides (Senokot) 17.2 mg PO Q12H PRN PRN Reason: Moderate Constipation Sodium Chloride (Ns Flush) 2 ml IV.FLUSH BID [facility] Last Admin: 10/18/18 08:16 Dose: 2 ml Sodium Chloride (Ns Flush) 2 ml IV.FLUSH PRN PRN PRN Reason: FLUSH AFTER USING IV ACCESS Last Admin: 10/16/18 22:00 Dose: 2 ml Terbutaline Sulfate (Brethine Inj) 1 mg SQ UNSCH PRN PRN Reason: For Extravasation Ziprasidone (Geodon Inj) 20 mg IM Q12H PRN PRN Reason: SEVERE AGITATION Last Admin: 10/17/18 12:45 Dose: 20 mg Allergies/Adverse Reactions: Allergies Allergy/AdvReac Type Severity Reaction Status Date / Time No Known Allergies Unknown Uncoded 10/27/17 16:04 Physical Exam Vital signs: Vital Signs 10/17/18 11:58 10/17/18 12:00 10/17/18 13:00 Temperature 98.2 F Pulse Rate 114 H 116 H 124 H Respiratory Rate 20 30 H 24 Pulse Oximetry 97 97 96 10/17/18 14:00 10/17/18 15:00 10/17/18 16:00 Temperature 98.7 F Pulse Rate 144 H 96 H 128 H Respiratory Rate 27 H 31 H 31 H Pulse Oximetry 96 94 L 97 10/17/18 16:24 10/17/18 17:00 10/17/18 18:00 Temperature Pulse Rate 132 H 125 H 106 H Respiratory Rate 33 H 21 21 Pulse Oximetry 98 97 10/17/18 19:00 10/17/18 20:00 10/17/18 20:08 Temperature 102.0 F H Pulse Rate 110 H 115 H 117 H Respiratory Rate 22 24 Pulse Oximetry 97 97 97 10/17/18 21:00 10/17/18 22:00 10/17/18 23:00 Temperature Pulse Rate 120 H 102 H 94 H Respiratory Rate 66 H Pulse Oximetry 97 97 98 10/17/18 23:07 10/18/18 00:00 10/18/18 01:00 Temperature 99.9 F H Pulse Rate 101 H 108 H 106 H Respiratory Rate 21 43 H 22 Pulse Oximetry 98 97 99 10/18/18 02:00 10/18/18 03:00 10/18/18 03:17 Temperature Pulse Rate 113 H 118 H 110 H Respiratory Rate 21 20 28 H Pulse Oximetry 97 100 98 10/18/18 04:00 10/18/18 05:00 10/18/18 06:00 Temperature 100.1 F H Pulse Rate 117 H 120 H 111 H Respiratory Rate 23 21 22 Pulse Oximetry 95 95 94 L 10/18/18 06:21 10/18/18 07:00 10/18/18 08:00 Temperature 102 F H Pulse Rate 112 H 127 H Respiratory Rate 22 27 H 28 H Pulse Oximetry 93 L 97 10/18/18 08:06 10/18/18 08:59 10/18/18 09:00 Temperature 99.4 F Pulse Rate 125 H 88 89 Respiratory Rate 27 H 27 H 23 Pulse Oximetry 96 98 96 10/18/18 10:00 Temperature Pulse Rate 88 Respiratory Rate 23 Pulse Oximetry 98 Intake & Output 10/17/18 10/18/18 10/18/18 18:59 06:59 18:59 Intake Total 3445.0 / 3445.0 1461 / 1461 300 / 300 Output Total 1320 / 1320 1170 / 1170 Balance 2125.0 / 2125.0 291 / 291 300 / 300 Weight 95 kg Intake: IV 2845.0 / 2845.0 1200 / 1200 300 / 300 LR 1000 mL Inj 1,000 ML @ 100 2000 / 2000 1000 / 1000 300 / 300 mls/hr IV.CONT .Q10H [facility] Rx#: [id number] Versed Inj 100 mg In 100 ml @ 2 34.5 / 34.5 MG/HR 2 mls/hr IV.CONT TITRATE PRN Rx#:[id number] Azactam Inj 2,000 MG In NS Inj 100 / 100 200 / 200 100 ML @ 200 mls/hr IV.SIG Q8H [facility] Rx#:[id number] Vancomycin Inj 1,500 MG In NS 515 / 515 Inj 500 ML @ 250 mls/hr IV.SIG Q24H [facility] Rx#:[id number] fentaNYL 10 mcg/mL Premix Drip 195.5 / 195.5 2,500 mcg In 250 ml @ 50 MCG/HR 5 mls/hr IV.SIG TITRATE PRN Rx #:[id number] Tube Feeding 141 / 141 Water Bolus Amount 120 / 120 Anesthesia Amount 600 / 600 Output: Stool 0 / 0 Urine Amount (Catheter) 1200 / 1200 1000 / 1000 Indwelling Urethral Catheter 1200 / 1200 1000 / 1000 Wound Drainage 120 / 120 170 / 170 Posterior Lumbar 120 / 120 170 / 170 Other: Date of Last Bowel Movement 10/16/18 10/16/18 10/16/18 # Bowel Movements 0 # Incontinent Bowel Movements 0 Narrative: no change still shakes head - Urinary Catheter Management Indwelling Urethral Catheter Cath placed during this visit: yes Reason for continuing: Hourly intake/output Insertion date: 10/02/18 Insertion time: 20:32 Objective Laboratory Results - last 24 hr 10/18/18 10/18/18 04:20 10:44 WBC 10.7 RBC 2.47 L Hgb 6.9 L* Hct 21.4 L MCV 86.5 MCH 27.9 MCHC 32.3 RDW 20.1 H Plt Count 187 MPV 7.8 Neut % (Auto) 84.6 H Lymph % (Auto) 6.2 L [place] % (Auto) 8.0 Eos % (Auto) 0.5 Baso % (Auto) 0.7 Neut # (Auto) 9.0 H Lymph # (Auto) 0.7 L [place] # (Auto) 0.9 Eos # (Auto) 0.0 Baso # (Auto) 0.1 WBC Differential . Differential Comment Auto diff final Blood Type O Positive MTS Gel Crossmatch See Detail Microbiology 10/16/18 10:18 Gram Stain - Final Lumbar Puncture CSF Culture - Preliminary No growth in 48 hours 10/14/18 13:51 Gram Stain - Final Tissue - Other Wound Culture - Final No growth in 72 hours (aerobically and anaerobically) 10/14/18 13:51 Gram Stain - Final Wound - Back Wound Culture - Final No growth in 72 hours (aerobically and anaerobically) Review/Management - Review/Management Plan: imp mri braina nd c spine neg abg nh3 labs ok eeg neg i think if we keep off sedatives should awaken and do ok 10/18/18 panchal neg csf cx neg labs ok the med team needs to all be on board with holding all sedatives he got im jorge yest call me when the decision is made to hold sedatives
[2018-10-18] MEDS: Vancomycin Inj 1,500 MG in Sodium Chlor 0.9% Inj 500 ML IV.SIG SCH (12:30)
[2018-10-18] MEDS ORDERED: Pharmacy Ordered Lab Info OTHER ONE (12:45)
[2018-10-18 13:34] LABS: Albumin 1.5 g/dL (3.4-5.0); Anion Gap 9 meq/L (5-15); Aspartate Aminotransferase 42 U/L (15-37); Blood Urea Nitrogen 44 mg/dL (7-18); Calcium 8.6 mg/dL (8.5-10.1); Carbon Dioxide 22.4 meq/L (21.0-32.0); Chloride 116 meq/L (98-107); Glomerular Filtration Rate 52 mL/min (>89); Glucose,Random 108 mg/dL (74-106); Potassium 3.5 meq/L (3.5-5.1); Sodium 147 meq/L (136-145)
[2018-10-18 13:35] LABS: Alanine Aminotransferase 23 U/L (12-78)
[2018-10-18 13:37] LABS: Alkaline Phosphatase 93 U/L (45-117); Total Protein 5.1 g/dL (6.4-8.2); Vancomycin,Trough 28.9 mcg/mL (5.0-10.0)
[2018-10-18 15:47] LABS: Hematocrit 22.4 % (39.0-51.0); Hemoglobin 7.5 gm/dL (13.0-17.0)
[2018-10-19] MEDS: Oral Hygiene Kit OROPHARYNG SCH ×4 (00:02→15:59)
[2018-10-19] MEDS: Methadone 10 MG Tablet PO SCH ×2 (05:00→17:29)
[2018-10-19 05:23] LABS: Baso # (Auto) 0.1 th/mm3 (0.0-0.2); Baso % (Auto) 0.5 % (0.0-2.0); Eos # (Auto) 0.1 th/mm3 (0.0-0.4); Eos % (Auto) 0.7 % (0.0-4.0); Hemoglobin 7.2 gm/dL (13.0-17.0); Lymph # (Auto) 0.6 th/mm3 (1.0-4.8); Mean Corpuscular HGB Conc 32.9 % (32.0-36.0); Mean Corpuscular Hemoglobin 28.6 pg (27.0-34.0); Mean Platelet Volume 8.2 fL (7.0-11.0); Mono # (Auto) 0.7 th/mm3 (0.0-0.9); Mono % (Auto) 5.7 % (0.0-8.0); Neut # (Auto) 11.1 th/mm3 (1.8-7.7); Neut % (Auto) 88.1 % (16.0-70.0); Platelet Count 200 th/mm3 (150-450); Red Blood Count 2.53 mil/mm3 (4.50-5.90); Red Cell Distribution Width 18.8 % (11.6-17.2); White Blood Count 12.6 th/mm3 (4.0-11.0)
[2018-10-19 05:45] LABS: Alanine Aminotransferase 24 U/L (12-78); Albumin 1.5 g/dL (3.4-5.0); Anion Gap 8 meq/L (5-15); Aspartate Aminotransferase 44 U/L (15-37); Blood Urea Nitrogen 45 mg/dL (7-18); Calcium 8.5 mg/dL (8.5-10.1); Carbon Dioxide 23.7 meq/L (21.0-32.0); Chloride 115 meq/L (98-107); Glomerular Filtration Rate 51 mL/min (>89); Glucose,Random 119 mg/dL (74-106); Potassium 3.5 meq/L (3.5-5.1); Sodium 147 meq/L (136-145)
[2018-10-19 05:48] LABS: Alkaline Phosphatase 99 U/L (45-117); Total Protein 5.3 g/dL (6.4-8.2); Vancomycin,Random 25.6 Comment
--- NOTE | 2018-10-19 08:03 | P.PNCC ---
Subjective Subjective Remarks/Hospital Course: Patient is a 73-year-old male with past medical history significant for hypertension, COPD, Prostate carcinoma, history of previous lumbar laminectomy who came to the [place] emergency department as a transfer from transfer from [facility]. He was accepted by neurosurgery Dr. Peter for acute onset bilateral lower extremity weakness. Patient states that he woke up this morning around 6 AM with numbness and weakness of bilateral lower extremity. On attempt to walk he fell on his face due to weakness. Patient states that the strength got slight better since then. CT scan of the lumbar spine large area of soft attenuation attenuation in the ventral epidural space L2-L3 level suspicious for large disc extrusion with spinal canal stenosis with differential diagnosis involving hemorrhage, there is also at least moderate bilateral neural foraminal stenosis. I evaluate the patient in the ED. He complains of weakness more on the left leg which he is unable to lift. There is generalized numbness but he is able to feel my touch. Critical care was requested to admit the patient to the ICU. Discussed with Dr. Mittal ED and Dr. Peter neurosurgery. A stat MRI of the lumbar spine had been ordered. 10/03: Remains intubated sedated. Remains on Levophed at 10 mcg/min to maintain map above 70. Patient is s/p L2 to L5 posterior spinal fusion, Left L2 /3 microdiscectomy. (MRI showed large herniated disc at L2/3 and flex/ex showing instability at this level). On sedation hold patient is moving all 4 extremities. Hb 8.3 will transfuse 1 unit PRBC due to hypotension 10/04: Remains intubated sedated remains on 8 mcg/min of Levophed to maintain map above 75. Transfusing 1 unit PRBC for hemoglobin 7.4. post-op MRI with significant disc herniation at L2/3. Scheduled for surgery today with Dr. Peter 10/05: Patient underwent surgery on 10/04/2018 for removal residual disc at L2/ 3 right side based on post-op MRI. (s/p L2-5 revision fusion and left L2/3 discectomy on 10/02/18). Today patient's hypoxemia had improved, he was awake but on lightening sedation was very agitated so after a short CPAP trial patient was extubated. Shortly after extubation patient became very agitated requiring four-point restraints and physically nurses having to restrain him. 2 mg IV Ativan was given following which patient became partially responsive with obstructive airway sounds. Shortly became hypoxemic desaturated, became bradycardic in 40s and systolic blood pressure does drop to mid 40s. I was emergently called to the bedside I started bag and mask ventilation immediately. Half ampule of epinephrine was post IV. His heart rate in systolic blood pressure improved with bag and mask ventilation and epinephrine push however he remained unresponsive. Emergently intubated and placed on mechanical ventilation. Once more responsive will start on sedation with Versed. Start Levophed to maintain map above 65. Postintubation chest x-ray is pending. 10/06: Remains intubated heavily sedated for vent synchrony. Patient gets very agitated on holding sedation. We will start Precedex to facilitate vent weaning. Hemoglobin is 7.1, 1 unit of PRBC followed by IV Lasix ordered. 10/07: Agitated. TVs > 1.0 liter spontaneous. Extubated. Patient required reintubation about 5 hours later due to hypoxemia. 10/08: Intubated for the third time last evening. He is unable to tolerate extubation due to a combination of underlying lung disease and severe agitation. If the family wishes to proceed he will require tracheostomy for safe weaning from the ventilator. His baseline mental status is apparently pretty close to normal. 10/09: Tracheostomy placed yesterday. Large amounts of white thick secretions encountered. Chest x-ray continues with a pattern of pulmonary edema. We will continue aggressive twice daily diuretic therapy. Ostensibly plan is to transfer to [facility] at the beginning of next week. One family member is not on board with that yet however. 10/10: Lumbar drain has been placed. Continue spontaneous breathing trials through tracheostomy. Continue discussions with family about transfer to LTAC for long-term weaning. No evidence of infection. 10/11: Effective diuresis but now developing a mild prerenal azotemia. Will hold off for a while and gently hydrate. Now the tracheostomy is performed there is not quite urgency to desiccate his lungs. Hopefully we can work toward a cyst transferred to [facility] after lumbar drain discontinued. 10/12: Following tracheostomy we will continue with attempts at ventilator weaning. Patient has a lumbar drain in place in an attempt to stop a lumbar region wound CSF leak. [facility] will take this patient for long-term weaning once lumbar drain is out. Gentle hydration continues until such time as prerenal azotemia is attenuated. Continue enteral nutrition. 10/13: Remains on mechanical ventilation via tracheostomy. Still on significant sedation due to agitation issues. Lumbar drain continues to drain. Possible surgery tomorrow. 10/14: Remains sedated, on mechanical ventilation via tracheostomy. Scheduled for surgery today for CSF leak lumbar region. 10/15: Remains sedated on mechanical ventilation via tracheostomy. Status post revision of lumbar wound on 10/14 by neurosurgery. Lumbar drain in place and drained 120 cc since yesterday. 10/16: Remains on mechanical ventilation via tracheostomy. Still dealing with agitation on lightening sedation. On Precedex/fentanyl. Received 1 dose of Geodon last night. Also getting as needed Ativan and Seroquel. 10/17: We continue to deal with bouts of agitation which hamper her ability to wean him from the ventilator. Gas exchange remains acceptable. He has required 1 unit of blood transfusion. 10/18: Plan is to clamp drain friday and remove mid-week if lumbar dressing stays dry. Tolerating CPAP today we will try to progress to T piece. 10/19: Patient still intermittently agitated. Per neurology service request we will stop all sedation and analgesia aside from methadone. Objective Vital Signs / I&O: Vital Signs 10/18/18 08:00 10/18/18 08:06 10/18/18 08:59 Temperature 102 F H 99.4 F Pulse Rate 127 H 125 H 88 Respiratory Rate 28 H 27 H 27 H Pulse Oximetry 97 96 98 10/18/18 09:00 10/18/18 10:00 10/18/18 11:00 Temperature 99.6 F Pulse Rate 89 88 99 H Respiratory Rate 23 23 27 H Pulse Oximetry 96 98 97 10/18/18 11:49 10/18/18 11:51 10/18/18 11:55 Temperature 99.6 F 99.6 F Pulse Rate 92 H 107 H 94 H Respiratory Rate 21 23 19 Pulse Oximetry 95 95 95 10/18/18 12:00 10/18/18 12:10 10/18/18 13:00 Temperature 99.6 F 97.4 F L Pulse Rate 95 H 109 H 94 H Respiratory Rate 27 H 18 Pulse Oximetry 95 95 96 10/18/18 14:00 10/18/18 15:00 10/18/18 16:00 Temperature 99.2 F 99.5 F Pulse Rate 100 H 97 H 112 H Respiratory Rate 23 27 H Pulse Oximetry 96 96 96 10/18/18 16:49 10/18/18 16:56 10/18/18 17:00 Temperature Pulse Rate 129 H 123 H Respiratory Rate 35 H 27 H Pulse Oximetry 94 L 96 10/18/18 18:00 10/18/18 19:00 10/18/18 19:18 Temperature Pulse Rate 117 H 114 H 116 H Respiratory Rate 27 H 14 29 H Pulse Oximetry 95 96 10/18/18 20:00 10/18/18 21:00 10/18/18 22:00 Temperature 100.5 F H Pulse Rate 121 H 77 88 Respiratory Rate 14 14 20 Pulse Oximetry 93 L 92 L 95 10/18/18 22:29 10/18/18 23:00 10/18/18 23:46 Temperature Pulse Rate 92 H 94 H Respiratory Rate 33 H 29 H Pulse Oximetry 98 98 10/19/18 00:00 10/19/18 01:00 10/19/18 01:20 Temperature 100.8 F H Pulse Rate 93 H 96 H Respiratory Rate 63 H 66 H 22 Pulse Oximetry 96 96 96 10/19/18 02:00 10/19/18 02:56 10/19/18 03:00 Temperature Pulse Rate 96 H 97 H 104 H Respiratory Rate 69 H 27 H 62 H Pulse Oximetry 96 100 10/19/18 04:00 10/19/18 04:27 10/19/18 05:00 Temperature Pulse Rate 108 H 118 H Respiratory Rate 55 H 34 H 93 H Pulse Oximetry 93 L 95 96 10/19/18 06:00 10/19/18 07:13 10/19/18 07:16 Temperature Pulse Rate 105 H 101 H Respiratory Rate 85 H 14 26 H Pulse Oximetry 94 L 93 L Intake & Output 10/18/18 10/19/18 10/19/18 18:59 06:59 18:59 Intake Total 1798 / 1798 1900 / 1900 Output Total 1140 / 1140 1120 / 1120 Balance 658 / 658 780 / 780 Weight 96.4 kg Intake: IV 915 / 915 1200 / 1200 LR 1000 mL Inj 1,000 ML @ 100 300 / 300 1000 / 1000 mls/hr IV.CONT .Q10H [facility] Rx#: [id number] Azactam Inj 2,000 MG In NS Inj 100 / 100 200 / 200 100 ML @ 200 mls/hr IV.SIG Q8H [facility] Rx#:[id number] Vancomycin Inj 1,500 MG In NS 515 / 515 Inj 500 ML @ 250 mls/hr IV.SIG Q24H [facility] Rx#:[id number] Tube Feeding 483 / 483 460 / 460 Water Bolus Amount 240 / 240 Intake (Blood Product) Amt 400 / 400 Rbc As-3 Leukoreduced Unit 400 / 400 [id number] Output: Stool 0 / 0 Urine Amount (Catheter) 1050 / 1050 1000 / 1000 Indwelling Urethral Catheter 1050 / 1050 1000 / 1000 Wound Drainage 90 / 90 120 / 120 Posterior Lumbar 90 / 90 120 / 120 Other: Date of Last Bowel Movement 10/16/18 10/16/18 # Bowel Movements 0 Result Diagrams: 10/19/18 05:08 10/19/18 05:08 Objective Remarks: GENERAL: Elderly gentleman, ongoing vent weaning. Holding sedation. SKIN: warm/dry. HEAD: Normocephalic. Atraumatic EYES: No injection or drainage. No conjunctival icterus or injection NECK: Supple. Tracheostomy in place, site is clean CARDIOVASCULAR: S1-S2 normal, no murmurs. No JVD RESPIRATORY: Air entry equal bilaterally, few scattered rhonchi, no wheezes. Plentiful mobile secretions persist. GASTROINTESTINAL: Abdomen soft, non-tender, nondistended. Bowel sounds are active. No guarding. MUSCULOSKELETAL: No cyanosis, trace edema. Warm, well-perfused. NEURO: Intubated via tracheostomy, holding sedation and antipsychotics. Moves all 4 limbs to stimulation. Remains episodically quite agitated. Of note, patient was perfectly well oriented and cooperative on admission. Lumbar drain in place with dressing over surgical site clean dry and intact, dry. 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 Code(s): M47.16 - Other spondylosis with myelopathy, lumbar region Status: Acute (2) Weakness of lower extremity Code(s): R29.898 - Other symptoms and signs involving the musculoskeletal system Status: Acute (3) COPD (chronic obstructive pulmonary disease) Code(s): J44.9 - Chronic obstructive pulmonary disease, unspecified Status: Chronic (4) History of prostate cancer Code(s): Z85.46 - Personal history of malignant neoplasm of prostate Status: Chronic (5) History of hypertension Code(s): Z86.79 - Personal history of other diseases of the circulatory system Status: Chronic - Assessment and Plan Plan: ASSESSMENT: Acute hypoxemic hypercarbic/hypoxemic respiratory failure Respiratory arrest after receiving Ativan on 10/05/2018 Hypotension now resolved Lumbar cord compression likely secondary to large herniated disc, with lower extremity weakness Right L2/L3 discectomy 10/04/2018 for removal residual disc at right L2/3 s/p L2-5 revision fusion and left L2/3 discectomy on 10/02/18. Hypotension on pressors History of previous lumbar posterior fusion and microdiscectomy by Dr. Hansen Acute on chronic kidney disease Anemia requiring transfusion History of prostate cancer COPD History of hypertension PLAN: NEURO: -MRI showing large herniated disc at L2/3 and flex/ex showing instability at this level. -s/p L2-5 revision fusion and left L2/3 discectomy on 10/02/18. -post-op MRI with significant disc herniation at right L2/3 despite resection, Right L2/L3 discectomy 10/04/2018 - Lumbar drain in place for CSF leak. Status post lumbar wound revision on by neurosurgery -Spine precautions -Currently sedated with Versed/ propofol and fentanyl. -Started Precedex to facilitate vent weaning, Seroquel 50 twice daily -Neurosurgery Dr. Peter. -Geodon prn, to take p.o. atypical antipsychotic Seroquel. Valproate dose increased on 10/13 -Continue to hold medications for agitation. -Hold all sedation and antipsychotics 10/19 -Test clamp lumbar drain today. RESP: -Extubated 10/05/18 however became unresponsive and hypoxic after receiving Ativan for agitation -Emergently reintubated and placed on mechanical ventilation -Currently on PRVC/AC -DuoNeb every 6 hours scheduled and as needed -Tapered off solumedrol. -Aggressive pulmonary toilet -f/u sputum culture, continue empiric cefepime -Extubated again 10/07 -Required reintubation 5 hours after extubation due to secretions and hypoxemia. Situation made worse by underlying agitation. -Tracheostomy performed 10/08 -Continue spontaneous breathing trials. -Hold diuretics. CV: -Cardiac decompensation most likely secondary to pulmonary problems, hypoxemia -Gas exchange improving -Fluid balance about right now GI: - IV famotidine. Continue tube feeds -Bowel regimen : -Monitor renal function closely. -Strict intake output, monitor and replete elect lytes, follow given creatinine ID: -Sputum culture, stop cefepime due to rash, switched to IV Azactam and vancomycin due to rash on 10/16. - ID consult for antibiotic management HEME: -Monitor CBC, coags ENDO: -Electrolyte replacement per protocol PROPH: -Bilateral lower extremity SCDs. No chemical DVT prophylaxis due to spinal surgery/continue famotidine LINES: -Utilize peripheral IVs, central line as needed -PT evaluate and treat All impression: Patient remains critically ill and ventilator dependent and we have been unable to keep him extubated for more than a few hours. His baseline mental status was quite good prior to this and so far the family has requested ongoing aggressive care. We will continue to try to clean up his lungs and encourage ventilator weaning. Lumbar drain in place, hold transfer to LTAC for now. The gentleman either has pleural effusions or renal failure depending how successfully we have diuresed him. He remains unstable and will likely be a long-term vent weaning problem, plan LTAC transfer when CSF drain is removed. Neurosurgery recommends test clamp drain today and watch for leakage at lumbar dressing.
--- NOTE | 2018-10-19 08:06 | P.PNNPSY ---
- Behavior Moderate: Impulsive/agitated - Progress Notes/Response to Treatment Contents of Sessions: Adjustment, Level of consciousness Time with Patient: 30 minutes Premorbid Psychological Status: Premorbid Cognitive, Emotional and Behavioral Status: Stable. 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 The patient has no prior psychiatric difficulties, as described above. Substance abuse history is unremarkable. Behavioral Reactions of Patient and Family/Support System: Stable. The patient s family is experiencing ongoing issues of adjustment given the nature of the injury, and this aspect of recovery will require ongoing monitoring. Emotional/Behavioral Status of Patient and Family/Support System: Stable. Pertinent issues, if appropriate to this patients clinical care, are described in detail above. Maximizing Acute Care Outcome: It is recommended that the patient be monitored for emergent behavioral impulsivity as the medical condition evolves. This patients neuropathological challenges may limit rehabilitation potential going forward, and these challenges will require specialized therapeutic skills to maximize outcome. At this point in the recovery process, the patient does not have cognitive capacity as the patient is unable to understand a situation and its likely consequences, nor is the patient able to manipulate information rationally. Cognitive capacity will be assessed throughout the recovery process. Anticipated Problems: Ongoing areas of concern will include behavioral impulsivity, lack of insight and judgment, which is expected to improve with time and treatment. Suggest continued treatment with current pharmacological approach, unless medically contraindicated. His recent ABS scores reflect improvement as such in terms of his neurobehavioral issues. Treatment Plan: This clinician will continue to follow with you throughout the course of this patients critical care treatment, and I will be available to meet with the patients family/support system to facilitate their understanding and the ongoing care of their family member. The goals of neuropsychological intervention shall be both educational and supportive to the family/support system as is deemed clinically appropriate. Disinhibition Score: 31.50 Aggression Score: 24.50 Lability Score: 18.66 Agitated Behavior Total Score: 26 Impression: 73 year old male with neurocognitive and neurobehavioral issues, possibly ICU delirium. Progress Note Narrative: Day 17. The patient remains moderately agitated, with ABS of 26 (31.5,24.5,18.7 ). Neurology requests that all sedation medications be kept on hold to see if he clears. I will follow. - Diagnosis (1) Major neurocognitive disorder due to another medical condition with behavioral disturbance Status: Acute
[2018-10-19] MEDS: Acetaminophen 325 MG Tablet PO PRN ×2 (09:50→17:29)
[2018-10-19] MEDS: Metoprolol Tartrate 50 MG Tablet PO SCH ×2 (09:50→20:04)
[2018-10-19] MEDS: Divalproex 125 MG Sprinkles Capsule PO SCH ×2 (09:50→20:03)
[2018-10-19] MEDS: Chlorhexidine 0.12% Oral Kit 15 ML UDC OROPHARYNG SCH ×2 (09:50→20:03)
[2018-10-19] MEDS: Senna/Docusate Sodium 8.6/50 MG Tablet PO SCH ×2 (09:50→20:04)
[2018-10-19] MEDS: Sodium Chloride 0.9% 2 ML Flush BID IV.FLUSH SCH ×2 (09:50→20:04)
[2018-10-19] MEDS: Famotidine PF Inj 20 MG/2 ML Vial IV.PUSH SCH ×2 (09:51→20:03)
--- NOTE | 2018-10-19 10:50 | P.PNNS ---
Subjective Interval history: intermittently opens eyes but not following commands Physical Exam Vital signs: Vital Signs 10/18/18 11:00 10/18/18 11:49 10/18/18 11:51 Temperature 99.6 F 99.6 F Pulse Rate 99 H 92 H 107 H Respiratory Rate 27 H 21 23 Pulse Oximetry 97 95 95 10/18/18 11:55 10/18/18 12:00 10/18/18 12:10 Temperature 99.6 F 99.6 F 97.4 F L Pulse Rate 94 H 95 H 109 H Respiratory Rate 19 27 H 18 Pulse Oximetry 95 95 95 10/18/18 13:00 10/18/18 14:00 10/18/18 15:00 Temperature 99.2 F Pulse Rate 94 H 100 H 97 H Respiratory Rate 23 27 H Pulse Oximetry 96 96 96 10/18/18 16:00 10/18/18 16:49 10/18/18 16:56 Temperature 99.5 F Pulse Rate 112 H 129 H Respiratory Rate 35 H Pulse Oximetry 96 94 L 10/18/18 17:00 10/18/18 18:00 10/18/18 19:00 Temperature Pulse Rate 123 H 117 H 114 H Respiratory Rate 27 H 27 H 14 Pulse Oximetry 96 95 96 10/18/18 19:18 10/18/18 20:00 10/18/18 21:00 Temperature 100.5 F H Pulse Rate 116 H 121 H 77 Respiratory Rate 29 H 14 14 Pulse Oximetry 93 L 92 L 10/18/18 22:00 10/18/18 22:29 10/18/18 23:00 Temperature Pulse Rate 88 92 H Respiratory Rate 20 33 H 29 H Pulse Oximetry 95 98 98 10/18/18 23:46 10/19/18 00:00 10/19/18 01:00 Temperature 100.8 F H Pulse Rate 94 H 93 H 96 H Respiratory Rate 63 H 66 H Pulse Oximetry 96 96 10/19/18 01:20 10/19/18 02:00 10/19/18 02:56 Temperature Pulse Rate 96 H 97 H Respiratory Rate 22 69 H 27 H Pulse Oximetry 96 96 10/19/18 03:00 10/19/18 04:00 10/19/18 04:27 Temperature Pulse Rate 104 H 108 H Respiratory Rate 62 H 55 H 34 H Pulse Oximetry 100 93 L 95 10/19/18 05:00 10/19/18 06:00 10/19/18 07:13 Temperature Pulse Rate 118 H 105 H 101 H Respiratory Rate 93 H 85 H 14 Pulse Oximetry 96 94 L 10/19/18 07:16 Temperature Pulse Rate Respiratory Rate 26 H Pulse Oximetry 93 L Intake & Output 10/18/18 10/19/18 10/19/18 18:59 06:59 18:59 Intake Total 1798 / 1798 1900 / 1900 Output Total 1140 / 1140 1120 / 1120 Balance 658 / 658 780 / 780 Weight 96.4 kg Intake: IV 915 / 915 1200 / 1200 LR 1000 mL Inj 1,000 ML @ 100 300 / 300 1000 / 1000 mls/hr IV.CONT .Q10H [facility] Rx#: [id number] Azactam Inj 2,000 MG In NS Inj 100 / 100 200 / 200 100 ML @ 200 mls/hr IV.SIG Q8H [facility] Rx#:[id number] Vancomycin Inj 1,500 MG In NS 515 / 515 Inj 500 ML @ 250 mls/hr IV.SIG Q24H [facility] Rx#:[id number] Tube Feeding 483 / 483 460 / 460 Water Bolus Amount 240 / 240 Intake (Blood Product) Amt 400 / 400 Rbc As-3 Leukoreduced Unit 400 / 400 [id number] Output: Stool 0 / 0 Urine Amount (Catheter) 1050 / 1050 1000 / 1000 Indwelling Urethral Catheter 1050 / 1050 1000 / 1000 Wound Drainage 90 / 90 120 / 120 Posterior Lumbar 90 / 90 120 / 120 Other: Date of Last Bowel Movement 10/16/18 10/16/18 # Bowel Movements 0 Narrative: intermittently opens eyes not following commands lumbar drain clamped - Urinary Catheter Management Indwelling Urethral Catheter Cath placed during this visit: yes Reason for continuing: Hourly intake/output Insertion date: 10/02/18 Insertion time: 20:32 Assessment and Plan - Plan 73yoM po (10/02/18) L2-5 revision fusion and left L2/3 discectomy 10/15/18 pod#1 revision of lumbar wound. Keep Lumbar Drain at 5cm below EAC, goal 160/ 12 hours (or 120/8 hour shift). 10/16/18 CSF starting to show yellow-- sample sent to micro/lab dressing dry. continue lumbar drainage until Friday10/17/18 f/u CSF-- negative thus far. MRI/Brain/C-spine/EEG-negative -- appreciate Neurology consult Lumbar drain until Friday, then clamp, then d/c Friday if dressing continues to be dry 10/18/18 Continue lumbar drainage until tomorrow then clamp and observe back dressing. Appreciate Neurology consult re: difficult to explain neuro exam PEG tube yesterday appreciate ID recs/abx re: rash 10/19: lumbar drain clamped continue monitor lumbar wound
[2018-10-19 11:17] LABS: Anti-Nuclear Antibody Screen Neg (Neg)
[2018-10-19] MEDS: Vancomycin Inj 1,500 MG in Sodium Chlor 0.9% Inj 500 ML IV.SIG SCH (13:58)
--- NOTE | 2018-10-19 14:19 | P.PNID ---
Subjective Remarks: Patient is a 73-year-old male, initially presented at [facility] for evaluation of acute onset bilateral lower extremity weakness. He apparently woke up on the morning of presentation with numbness and weakness of bilateral lower extremity. He tried to walk but fell on his face. Patient presented to [facility] and CT of the lumbar spine showed a large area of soft attenuation in the ventral epidural space at L2-L3 suspicious for a large disc extrusion with spinal canal stenosis. He was transferred here at [facility] for neurosurgical evaluation. He underwent surgery on October 02 and had L2-L5 posterior spinal fusion, and left L2-L3 microdiscectomy. He was on the vent postoperatively. He had a repeat MRI on October 03 which showed disc herniation, and the patient underwent surgery again and had a right discectomy L2-L3. Patient has had problem with his respiratory status. He was extubated and reintubated 3 times, and subsequently underwent tracheostomy on October 08. On October 09 he was found to have a CSF leak, and underwent placement of a lumbar drain. He continues to have drainage, and he went to surgery again on October 14 and had revision of the lumbar wound, and repair of the leak, and has a lumbar drain again. Infectious disease consultation has been requested to assist with antibiotic management in a patient who has had a CSF leak. Notes reviewed D/W RN temps up to 102 this morning ON the vent No change in neuro status Lumbar drain in place Last CSF C/S 10/14 - negative Rash - looks papular, stable, has not resolved RPR negative Antibiotics: Azactam Vancomycin Past Medical History: Back pain Colonic polyp GERD (gastroesophageal reflux disease) Hypertension Neuropathy Osteoarthritis Prostate carcinoma Endarterectomy Allergies/Adverse Reactions: Allergies No Known Allergies (Unknown, Uncoded 10/27/17 16:04) Objective Vital Signs 10/18/18 15:00 10/18/18 16:00 10/18/18 16:49 Temperature 99.5 F Pulse Rate 97 H 112 H 129 H Respiratory Rate 27 H 35 H Pulse Oximetry 96 96 10/18/18 16:56 10/18/18 17:00 10/18/18 18:00 Temperature Pulse Rate 123 H 117 H Respiratory Rate 27 H 27 H Pulse Oximetry 94 L 96 95 10/18/18 19:00 10/18/18 19:18 10/18/18 20:00 Temperature 100.5 F H Pulse Rate 114 H 116 H 121 H Respiratory Rate 14 29 H 14 Pulse Oximetry 96 93 L 10/18/18 21:00 10/18/18 22:00 10/18/18 22:29 Temperature Pulse Rate 77 88 Respiratory Rate 14 20 33 H Pulse Oximetry 92 L 95 98 10/18/18 23:00 10/18/18 23:46 10/19/18 00:00 Temperature 100.8 F H Pulse Rate 92 H 94 H 93 H Respiratory Rate 29 H 63 H Pulse Oximetry 98 96 10/19/18 01:00 10/19/18 01:20 10/19/18 02:00 Temperature Pulse Rate 96 H 96 H Respiratory Rate 66 H 22 69 H Pulse Oximetry 96 96 96 10/19/18 02:56 10/19/18 03:00 10/19/18 04:00 Temperature Pulse Rate 97 H 104 H 108 H Respiratory Rate 27 H 62 H 55 H Pulse Oximetry 100 93 L 10/19/18 04:27 10/19/18 05:00 10/19/18 06:00 Temperature Pulse Rate 118 H 105 H Respiratory Rate 34 H 93 H 85 H Pulse Oximetry 95 96 94 L 10/19/18 07:00 10/19/18 07:13 10/19/18 07:16 Temperature Pulse Rate 98 H 101 H Respiratory Rate 78 H 14 26 H Pulse Oximetry 94 L 93 L 10/19/18 08:00 10/19/18 09:00 10/19/18 10:00 Temperature 102.9 F H Pulse Rate 115 H 123 H 115 H Respiratory Rate 89 H 59 H 75 H Pulse Oximetry 92 L 89 L 94 L 10/19/18 11:00 10/19/18 11:07 10/19/18 12:00 Temperature 101.3 F H Pulse Rate 90 88 101 H Respiratory Rate 73 H 29 H 40 H Pulse Oximetry 95 96 94 L Intake & Output 10/18/18 10/19/18 10/19/18 18:59 06:59 18:59 Intake Total 1798 / 1798 1900 / 1900 300 / 300 Output Total 1140 / 1140 1120 / 1120 Balance 658 / 658 780 / 780 300 / 300 Weight 96.4 kg Intake: IV 915 / 915 1200 / 1200 300 / 300 LR 1000 mL Inj 1,000 ML @ 100 300 / 300 1000 / 1000 mls/hr IV.CONT .Q10H COUNT INCLUDES [facility] Rx#: [id number] Diprivan 1000 mg/100 ml Inj 1, 100 / 100 000 mg In 100 ml @ 5 MCG/KG/MIN 2.835 mls/hr IV.CONT TITRATE PRN Rx#:[id number] Azactam Inj 2,000 MG In NS Inj 100 / 100 200 / 200 100 / 100 100 ML @ 200 mls/hr IV.SIG Q8H COUNT INCLUDES [facility] Rx#:[id number] Vancomycin Inj 1,500 MG In NS 515 / 515 Inj 500 ML @ 250 mls/hr IV.SIG Q24H COUNT INCLUDES [facility] Rx#:[id number] Tube Feeding 483 / 483 460 / 460 Water Bolus Amount 240 / 240 Intake (Blood Product) Amt 400 / 400 Rbc As-3 Leukoreduced Unit 400 / 400 [id number] Output: Stool 0 / 0 Urine Amount (Catheter) 1050 / 1050 1000 / 1000 Indwelling Urethral Catheter 1050 / 1050 1000 / 1000 Wound Drainage 90 / 90 120 / 120 Posterior Lumbar 90 / 90 120 / 120 Other: Date of Last Bowel Movement 10/16/18 10/16/18 10/16/18 # Bowel Movements 0 10/16/18 10:18 Lumbar Puncture Gram Stain - Final 10/16/18 10:18 Lumbar Puncture CSF Culture - Final No growth in 72 hours 10/14/18 13:51 Tissue - Other Gram Stain - Final 10/14/18 13:51 Tissue - Other Wound Culture - Final No growth in 72 hours (aerobically and anaerobically ) 10/14/18 13:51 Wound - Back Gram Stain - Final 10/14/18 13:51 Wound - Back Wound Culture - Final No growth in 72 hours (aerobically and anaerobically ) 10/14/18 13:51 Tissue - Other Acid Fast Bacilli Smear - Final No acid fast bacilli seen 10/14/18 13:51 Tissue - Other Mycobacterial Culture - Pending 10/14/18 13:51 Wound - Back Acid Fast Bacilli Smear - Final No acid fast bacilli seen 10/14/18 13:51 Wound - Back Mycobacterial Culture - Pending Lab - Hematology Results 10/18/18 10/18/18 10/19/18 04:20 15:21 05:08 WBC 10.7 12.6 H RBC 2.47 L 2.53 L Hgb 6.9 L* 7.5 L 7.2 L Hct 21.4 L 22.4 L 22.0 L MCV 86.5 87.0 MCH 27.9 28.6 MCHC 32.3 32.9 RDW 20.1 H 18.8 H Plt Count 187 200 MPV 7.8 8.2 Neut % (Auto) 84.6 H 88.1 H Lymph % (Auto) 6.2 L 5.0 L Mckinley % (Auto) 8.0 5.7 Eos % (Auto) 0.5 0.7 Baso % (Auto) 0.7 0.5 Neut # (Auto) 9.0 H 11.1 H Lymph # (Auto) 0.7 L 0.6 L Mckinley # (Auto) 0.9 0.7 Eos # (Auto) 0.0 0.1 Baso # (Auto) 0.1 0.1 WBC Differential . . Differential Comment Auto diff final Auto diff final Lab - Chemistry Results 10/18/18 10/19/18 13:00 05:08 Sodium 147 H 147 H Potassium 3.5 3.5 Chloride 116 H 115 H Carbon Dioxide 22.4 23.7 Anion Gap 9 8 BUN 44 H 45 H Creatinine 1.35 H 1.36 H Estimated GFR 52 L 51 L Random Glucose 108 H 119 H Calcium 8.6 8.5 Total Bilirubin 0.3 0.3 AST 42 H 44 H ALT 23 24 Alkaline Phosphatase 93 99 Total Protein 5.1 L 5.3 L Albumin 1.5 L 1.5 L Imaging: ITS Impressions Lumbar Spine X-Ray 10/04/18 00:00 CONCLUSION: Lumbar Puncture Fluoroscopy 10/09/18 00:00 CONCLUSION: 1. Uncomplicated lumbar drain placement as above. Lumbar Spine MRI 10/09/18 00:00 CONCLUSION: 1. Significant improvement in the postoperative appearance of the spine with good decompression at L2-3. There is no significant thecal sac impingement. 2. Moderate facet disease is seen in the fused levels stable interval. Thoracic Spine MRI 10/09/18 00:00 CONCLUSION: 1. Significant cervical spinal stenosis, not evaluated on this exam. 2. There is no intrathoracic cord compression. 3. Conus is unremarkable. Chest X-Ray 10/13/18 04:00 CONCLUSION: Decreased bilateral pulmonary opacity. Likely represents decreased pulmonary edema. Cervical Spine MRI 10/16/18 11:58 CONCLUSION: Mild spondylosis and disc disease. No significant canal or foraminal compromise. No explanation for myelopathy. Head MRI 10/16/18 11:58 CONCLUSION: No acute intracranial findings. Physical Exam: GENERAL: awake, occ focuses. on the vent, not in respiratory distress. he has this intermittent movement of his head with grimacing SKIN: Cool and dry. Has scattered papular rash in his trunk, and his lower extremity. HEAD: Atraumatic. Normocephalic. No temporal wasting, or tenderness. EYES: [place] conjunctiva. No petechia or hemorrhage. Pupils equal, round and reactive to light. Extraocular movements full and intact. No scleral icterus. No injection or drainage. EARS, NOSE AND THROAT: Nose without bleeding or purulent nasal discharge. Slightly dry oral mucosa NECK: Tracheostomy site looks ok CARDIOVASCULAR: Regular rate and rhythm. No murmurs, rubs or gallops heard RESPIRATORY: Coarse breath sounds bilaterally, decreased at the bases. ABDOMEN: Soft, globular, non-tender, nondistended. Bowel sounds present and normoactive. No guarding. No rebound. No organomegaly. EXTREMITIES: No clubbing, cyanosis. Has bilateral pedal edema. Well perfused and warm. BACK: Dressing in place, lumbar drain in place with blood tinged CSF NEUROLOGICAL: Awake, not following commands. Occ focuses PSYCHIATRIC: Unable to assess LINE: No evidence of infection Assessment and Plan - Plan Impression Recurrent CSF leak, S/P surgery x2 for leak, last surgery 10/14. Culture pending. Drug eruption, better, likely from Cefepime Recurrent respiratory failure Encephalopathy New fevere Recommendation Continue IV Azactam. Continue Vancomycin. 2 BC Ua and C/S Sputum C/S CXR Follow temps Monitor progress Weaning per CCM D/W RN
--- NOTE | 2018-10-19 15:16 | XR ---
EXAM DATE: 10/19/2018 3:00 PM EST AGE/SEX: 73 years / Male INDICATIONS: Fever. CLINICAL DATA: This is the patient's initial encounter. Patient reports that signs and symptoms have been present for 4 - 6 days and indicates a pain score of Nonresponsive. MEDICAL/SURGICAL HISTORY: Hypertension. Gastroesophageal reflux disease. . fusion lumbar, disc ectomy, carotid endarterectomy COMPARISON: [facility], CHEST 1V SINGLE AP, 10/13/2018. . FINDINGS: Stable tracheostomy. Interval removal of NGT. Diffuse airspace opacities throughout the right lung wi th more confluent consolidation in the medial right lower lung zone. Patchy airspace disease in the m id to lower left lung zones. Cardiomediastinal contours are stable. Remainder of the exam is unchange d. CONCLUSION: 1. Interval removal of NGT. 2. Diffuse airspace opacities throughout the right lung with more confluent consolidation in the med ial right lower lung zone. 3. Patchy mid to lower left lung zone airspace disease. 4. Overall findings are concerning for aspiration or diffuse infection given history of fever. Electronically signed by: Casimiro Billy MD 10/19/2018 3:14 PM EST
[2018-10-19] MEDS ORDERED: Dexmedetomidine Inj 200 MCG in Sodium Chlor 0.9% Inj 48 ML IV.CONT PRN (16:50)
--- NOTE | 2018-10-19 17:06 | P.DIET ---
Nutritional Evaluation Type of nutrition evaluation: follow-up Nutrition consult regarding: Tube Feeding Objective - Diagnosis spinal hematoma - Objective % IBW: 112 (IBW = 166#) Body Weight Used for Calculations: Actual (84.3) Energy Needs - Lower Range (kCal/kg): 25 Energy Needs - Upper Range (kCal/kg): 30 Lower Limit kCal/kg (kCals): 2,108 Upper Limit kCal/kg (kCals): 2,529 Lower Limit Protein Factor (Grams per Kg): 1.2 Upper Limit Protein Factor (Grams per Kg): 1.6 Lower Protein Needs (Protein): 101 Upper Protein Needs (Protein): 135 Dietitian Reviewed in Medical Record: Curent medications, Intake & Output, Labs , Medical history, Tube feeding Diet Order: NPO Objective Comments: PMH: back pain, GERD, HTN, neuropathy, osteoarthritis, prostate carcinoma Assessment Assessment: Pt remains at high nutrition risk and has been intubated x 3. Propofol is off. Pt currently receiving Jevity 1.5 @ 40 mLs/hr. To meet needs with Jevity 1.5, recommend goal rate of 65 mls/hr to provide 2340 kcals, 100 gms protein and 1186 mls of free water. Labs, wts and clinical course reviewed. Recommendations: Jevity 1.5 @ 65 mls/hr goal Dietitian to Monitor: Lab values, Intake & Output, Tube feeding tolerance, Weight change, Medical course
[2018-10-19 18:02] LABS: Amorphous Sediment,Urine Few /hpf; Bacteria,Urine Few /hpf; Bilirubin,Urine Negative (Negative); Glucose,Urine (UA) Negative (Negative); Leukocyte Esterase,Urine Negative (Negative); Mucus,Urine Few /lpf (Occasional); Nitrite,Urine Negative (Negative); Specific Gravity,Urine 1.018 (1.002-1.035); Squamous Epithelial Cell,Urine 2 /hpf (0-5)
[2018-10-19 18:03] LABS: Clarity,Urine Hazy (Clear); Color,Urine Dark-Yellow (Yellw/Straw)
[2018-10-20] MEDS: Oral Hygiene Kit OROPHARYNG SCH ×5 (03:12→23:58)
[2018-10-20] MEDS: Acetaminophen 325 MG Tablet PO PRN (03:23)
[2018-10-20] MEDS: Methadone 10 MG Tablet PO SCH ×3 (04:37→20:08)
[2018-10-20 04:46] LABS: Alanine Aminotransferase 27 U/L (12-78); Albumin 1.5 g/dL (3.4-5.0); Anion Gap 5 meq/L (5-15); Aspartate Aminotransferase 49 U/L (15-37); Blood Urea Nitrogen 47 mg/dL (7-18); Calcium 8.6 mg/dL (8.5-10.1); Carbon Dioxide 24.9 meq/L (21.0-32.0); Chloride 116 meq/L (98-107); Glomerular Filtration Rate 52 mL/min (>89); Glucose,Random 123 mg/dL (74-106); Potassium 3.5 meq/L (3.5-5.1); Sodium 146 meq/L (136-145)
[2018-10-20 04:49] LABS: Alkaline Phosphatase 97 U/L (45-117); Total Protein 5.4 g/dL (6.4-8.2); Vancomycin,Random 27.7 Comment
[2018-10-20] MEDS: Metoprolol Inj 5 MG/5 ML Vial IV.PUSH PRN ×3 (05:08→23:58)
--- NOTE | 2018-10-20 07:41 | P.PNNEU ---
Subjective Active Medications: Active Medications Acetaminophen (Tylenol) 650 mg PO Q6H PRN PRN Reason: PAIN 1-10 AND/OR FEVER >101F Last Admin: 10/20/18 03:23 Dose: 650 mg Al Hydroxide/Mg Hydroxide (Milk Of Magnbecca Liq) 30 ml PO Q12H PRN PRN Reason: Mild Constipation Last Admin: 10/15/18 06:44 Dose: 30 ml Albuterol (Albuterol Neb (Prn)) 2.5 mg NEB Q2HR NEB PRN PRN Reason: SHORTNESS OF BREATH/WHEEZING Bisacodyl (Dulcolax Supp) 10 mg RECTAL DAILY PRN PRN Reason: SEVERE CONSITIPATION Last Admin: 10/16/18 00:38 Dose: 10 mg Chlordiazepoxide (Librium) 5 mg PO Q12H [facility] Last Admin: 10/18/18 21:22 Dose: 5 mg Chlorhexidine Gluconate (Peridex 0.12% Oral Kit) 15 ml OROPHARYNG BID@0800, 2000 [facility] Last Admin: 10/19/18 20:03 Dose: 15 ml Diphenhydramine HCl (Benadryl Inj) 25 mg IV.PUSH Q6HR [facility] Last Admin: 10/19/18 05:00 Dose: 25 mg Divalproex Sodium (Depakote Sprinkles) 500 mg PO BID [facility] Last Admin: 10/19/18 20:03 Dose: 500 mg Famotidine (Pepcid Pf Inj) 10 mg IV.PUSH Q12HR [facility] Last Admin: 10/19/18 20:03 Dose: 10 mg Furosemide (Lasix Inj) 40 mg IV.PUSH BID@0900,1800 [facility] Last Admin: 10/11/18 08:53 Dose: 40 mg Hydralazine HCl (Apresoline Inj) 20 mg IV.PUSH Q2H PRN PRN Reason: SBP > 160 Last Admin: 10/17/18 13:27 Dose: 20 mg Fentanyl (Fentanyl 10 Mcg/Ml Premix Drip) 2,500 mcg in 250 mls @ 5 mls/hr IV.SIG TITRATE PRN; Protocol PRN Reason: Per Protocol Last Titration: 10/17/18 17:22 Dose: Infused Norepinephrine Bitartrate (Levophed-Dextrose 4 Mg/250 Ml Drip) 4 mg in 250 mls @ 7.5 mls/hr IV.SIG TITRATE PRN; Protocol PRN Reason: Per Protocol Last Titration: 10/11/18 07:00 Dose: 0 mcg/min, 0 mls/hr Propofol (Diprivan 1000 Mg/100 Ml Inj) 1,000 mg in 100 mls @ 2.835 mls/hr IV.CONT TITRATE PRN; Protocol PRN Reason: Per Protocol Last Titration: 10/19/18 11:20 Dose: Infused Midazolam HCl (Versed Inj) 100 mg in 100 mls @ 2 mls/hr IV.CONT TITRATE PRN; Protocol PRN Reason: PER PROTOCOL Last Titration: 10/17/18 17:26 Dose: Infused Lactated Ringer's (Lr 1000 Ml Inj) 1,000 mls @ 100 mls/hr IV.CONT .Q10H [facility] Last Admin: 10/20/18 03:13 Dose: Not Given Vancomycin HCl 1,500 mg/ (Sodium Chloride) 515 mls @ 250 mls/hr IV.SIG Q24H [facility] Last Infusion: 10/19/18 16:07 Dose: Infused Aztreonam 2,000 mg/ Sodium (Chloride) 100 mls @ 200 mls/hr IV.SIG Q8H [facility] Last Infusion: 10/20/18 03:51 Dose: Infused Dexmedetomidine HCl 800 mcg/ (Sodium Chloride) 100 mls @ 2.29 mls/hr IV.CONT TITRATE PRN; Protocol PRN Reason: Per Protocol Last Titration: 10/19/18 11:20 Dose: Infused Dexmedetomidine HCl 200 mcg/ (Sodium Chloride) 50 mls @ 4.21 mls/hr IV.CONT TITRATE PRN; Protocol PRN Reason: Per Protocol Lactulose (Lactulose Liq) 30 ml PO DAILY PRN PRN Reason: SEVERE CONSITIPATION Last Admin: 10/15/18 19:44 Dose: 30 ml Lorazepam (Ativan Inj) 0.5 mg IV.PUSH Q6H PRN PRN Reason: SEVERE AGITATION Last Admin: 10/17/18 13:41 Dose: 0.5 mg Methadone HCl (Dolophine) 10 mg PO Q12H [facility] Last Admin: 10/20/18 04:37 Dose: 10 mg Metoprolol Tartrate (Lopressor Inj) 5 mg IV.PUSH Q4H PRN PRN Reason: Pulse > 120 Last Admin: 10/20/18 05:08 Dose: 5 mg Metoprolol Tartrate (Lopressor) 50 mg PO BID [facility] Last Admin: 10/19/18 20:04 Dose: 50 mg Miscellaneous (Pill Splitter) 1 each OTHER UNSCH PRN PRN Reason: PILL SPLITTER Miscellaneous Medication () 1 each OROPHARYNG 0000,0400,1200,1600 [facility] Last Admin: 10/20/18 04:37 Dose: 1 each Morphine Sulfate (Morphine Inj) 2 mg IV.PUSH Q4H PRN PRN Reason: 6-10 pain Last Admin: 10/07/18 21:47 Dose: 2 mg Oxycodone HCl (Roxicodone Intensol Liq) 10 mg PO Q6H [facility] Last Admin: 10/19/18 05:00 Dose: 10 mg Pharmacy Profile Note (Vancomycin Consult Pharmacy) 1 each OTHER UNSCH PRN PRN Reason: Pharmacy to dose Quetiapine Fumarate (Seroquel) 150 mg PO BID [facility] Last Admin: 10/18/18 20:02 Dose: 150 mg Senna/Docusate Sodium (Shazia-Colace) 1 tab PO BID [facility] Last Admin: 10/19/18 20:04 Dose: 1 tab Sennosides (Senokot) 17.2 mg PO Q12H PRN PRN Reason: Moderate Constipation Sodium Chloride (Ns Flush) 2 ml IV.FLUSH BID [facility] Last Admin: 10/19/18 20:04 Dose: 2 ml Sodium Chloride (Ns Flush) 2 ml IV.FLUSH PRN PRN PRN Reason: FLUSH AFTER USING IV ACCESS Last Admin: 10/16/18 22:00 Dose: 2 ml Terbutaline Sulfate (Brethine Inj) 1 mg SQ UNSCH PRN PRN Reason: For Extravasation Ziprasidone (Geodon Inj) 20 mg IM Q12H PRN PRN Reason: SEVERE AGITATION Last Admin: 10/17/18 12:45 Dose: 20 mg Allergies/Adverse Reactions: Allergies Allergy/AdvReac Type Severity Reaction Status Date / Time No Known Allergies Unknown Uncoded 10/27/17 16:04 Physical Exam Vital signs: Vital Signs 10/19/18 08:00 10/19/18 09:00 10/19/18 10:00 Temperature 102.9 F H Pulse Rate 115 H 123 H 115 H Respiratory Rate 89 H 59 H 75 H Pulse Oximetry 92 L 89 L 94 L 10/19/18 11:00 10/19/18 11:07 10/19/18 12:00 Temperature 101.3 F H Pulse Rate 90 88 101 H Respiratory Rate 73 H 29 H 40 H Pulse Oximetry 95 96 94 L 10/19/18 13:00 10/19/18 14:00 10/19/18 15:00 Temperature 101.0 F H Pulse Rate 100 H 100 H 115 H Respiratory Rate 50 H 41 H 46 H Pulse Oximetry 94 L 96 99 10/19/18 15:22 10/19/18 16:00 10/19/18 17:00 Temperature Pulse Rate 83 116 H 110 H Respiratory Rate 36 H 69 H 37 H Pulse Oximetry 98 98 90 L 10/19/18 18:00 10/19/18 19:00 10/19/18 19:37 Temperature Pulse Rate 104 H 96 H 109 H Respiratory Rate 33 H 22 33 H Pulse Oximetry 93 L 93 L 95 10/19/18 20:00 10/19/18 21:00 10/19/18 22:00 Temperature 100.5 F H Pulse Rate 96 H 90 87 Respiratory Rate 31 H 37 H 34 H Pulse Oximetry 91 L 88 L 96 10/19/18 23:00 10/19/18 23:32 10/20/18 00:00 Temperature 100.6 F H Pulse Rate 95 H 86 86 Respiratory Rate 44 H 36 H 35 H Pulse Oximetry 93 L 98 94 L 10/20/18 01:00 10/20/18 02:00 10/20/18 03:00 Temperature 101.3 F H Pulse Rate 99 H 104 H 110 H Respiratory Rate 46 H 45 H 43 H Pulse Oximetry 94 L 93 L 94 L 10/20/18 03:36 10/20/18 04:00 10/20/18 05:00 Temperature 101.0 F H Pulse Rate 108 H 126 H Respiratory Rate 40 H 36 H 60 H Pulse Oximetry 96 92 L 90 L 10/20/18 06:00 10/20/18 07:17 10/20/18 07:21 Temperature Pulse Rate 82 Respiratory Rate 24 31 H 33 H Pulse Oximetry 92 L 94 L 98 Intake & Output 10/19/18 10/20/18 10/20/18 18:59 06:59 18:59 Intake Total 2404 / 2404 1112 / 1112 Output Total 995 / 995 750 / 750 Balance 1409 / 1409 362 / 362 Weight 84.3 kg 96.6 kg Intake: IV 1815 / 1815 200 / 200 LR 1000 mL Inj 1,000 ML @ 100 1000 / 1000 mls/hr IV.CONT .Q10H [facility] Rx#: [id number] Diprivan 1000 mg/100 ml Inj 1, 100 / 100 000 mg In 100 ml @ 5 MCG/KG/MIN 2.835 mls/hr IV.CONT TITRATE PRN Rx#:[id number] Azactam Inj 2,000 MG In NS Inj 100 / 100 200 / 200 100 ML @ 200 mls/hr IV.SIG Q8H [facility] Rx#:[id number] Vancomycin Inj 1,500 MG In NS 515 / 515 Inj 500 ML @ 250 mls/hr IV.SIG Q24H [facility] Rx#:[id number] Tube Feeding 389 / 389 432 / 432 Water Bolus Amount 200 / 200 480 / 480 Output: Urine Amount (Catheter) 950 / 950 750 / 750 Indwelling Urethral Catheter 950 / 950 750 / 750 Wound Drainage 45 / 45 Posterior Lumbar 45 / 45 Other: Date of Last Bowel Movement 10/16/18 10/16/18 Weight On Admission 84.3 kg Narrative: awake follows commands sticks out tongue for me and wiggles toes a little tracks me well - Urinary Catheter Management Indwelling Urethral Catheter Cath placed during this visit: yes Reason for continuing: Hourly intake/output Insertion date: 10/02/18 Insertion time: 20:32 Objective Laboratory Results - last 24 hr 10/16/18 10/19/18 10/20/18 14:05 17:30 03:36 Sodium 146 H Potassium 3.5 Chloride 116 H Carbon Dioxide 24.9 Anion Gap 5 BUN 47 H Creatinine 1.34 H Estimated GFR 52 L Random Glucose 123 H Calcium 8.6 Total Bilirubin 0.2 AST 49 H ALT 27 Alkaline Phosphatase 97 Total Protein 5.4 L Albumin 1.5 L Urine Color Dark-yellow Urine Clarity Hazy H Urine pH 5.0 Ur Specific [place] 1.018 Urine Protein 100 H Urine Glucose (UA) Negative Urine Ketones Negative Urine Occult Blood Small H Urine Nitrate Negative Urine Bilirubin Negative Urine Urobilinogen Less than 2 Ur Leukocyte Esterase Negative Urine RBC 35 H Urine WBC 12 H Ur Squamous Epith Cells 2 Amorphous Sediment Few H Urine Bacteria Few H Urine Mucus Few H Urine Yeast Few H Micro UA Comment Culture indicated Ur Microscopic Review Not Reportable Urine Culture Comments Culture indicated Random Vancomycin 27.7 LADY Screen Neg RPR Nonreactive Microbiology 10/16/18 10:18 Gram Stain - Final Lumbar Puncture CSF Culture - Final No growth in 72 hours Review/Management - Review/Management Plan: imp mri braina nd c spine neg abg nh3 labs ok eeg neg i think if we keep off sedatives should awaken and do ok 10/18/18 panchal neg csf cx neg labs ok the med team needs to all be on board with holding all sedatives he got im jorge yest call me when the decision is made to hold sedatives /10/20/18 much better and following commands off sedatives improved neuro i will sign off /
[2018-10-20] MEDS: Chlorhexidine 0.12% Oral Kit 15 ML UDC OROPHARYNG SCH ×2 (08:07→20:29)
[2018-10-20] MEDS: Divalproex 125 MG Sprinkles Capsule PO SCH ×3 (08:07→21:29)
[2018-10-20] MEDS: Famotidine PF Inj 20 MG/2 ML Vial IV.PUSH SCH ×2 (08:08→20:28)
[2018-10-20] MEDS: Senna/Docusate Sodium 8.6/50 MG Tablet PO SCH ×2 (08:08→20:29)
[2018-10-20] MEDS: Metoprolol Tartrate 50 MG Tablet PO SCH ×2 (08:08→20:29)
[2018-10-20] MEDS: Sodium Chloride 0.9% 2 ML Flush BID IV.FLUSH SCH ×2 (08:08→20:29)
--- NOTE | 2018-10-20 08:11 | P.PNNPSY ---
- Behavior Mild: Impulsive/agitated - Progress Notes/Response to Treatment Contents of Sessions: Adjustment, Level of consciousness Time with Patient: 30 minutes Premorbid Psychological Status: Premorbid Cognitive, Emotional and Behavioral Status: Stable. 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 The patient has no prior psychiatric difficulties, as described above. Substance abuse history is unremarkable. Behavioral Reactions of Patient and Family/Support System: Stable. The patient s family is experiencing ongoing issues of adjustment given the nature of the injury, and this aspect of recovery will require ongoing monitoring. Emotional/Behavioral Status of Patient and Family/Support System: Stable. Pertinent issues, if appropriate to this patients clinical care, are described in detail above. Maximizing Acute Care Outcome: It is recommended that the patient be monitored for emergent behavioral impulsivity as the medical condition evolves. This patients neuropathological challenges may limit rehabilitation potential going forward, and these challenges will require specialized therapeutic skills to maximize outcome. At this point in the recovery process, the patient does not have cognitive capacity as the patient is unable to understand a situation and its likely consequences, nor is the patient able to manipulate information rationally. Cognitive capacity will be assessed throughout the recovery process. Anticipated Problems: Ongoing areas of concern will include behavioral impulsivity, lack of insight and judgment, which is expected to improve with time and treatment. Suggest continued treatment with current pharmacological approach, unless medically contraindicated. His recent ABS scores reflect improvement as such in terms of his neurobehavioral issues. Treatment Plan: This clinician will continue to follow with you throughout the course of this patients critical care treatment, and I will be available to meet with the patients family/support system to facilitate their understanding and the ongoing care of their family member. The goals of neuropsychological intervention shall be both educational and supportive to the family/support system as is deemed clinically appropriate. Disinhibition Score: 31.50 Aggression Score: 21.00 Lability Score: 18.66 Agitated Behavior Total Score: 25 Impression: 73 year old male with neurocognitive and neurobehavioral issues, possibly ICU delirium. Progress Note Narrative: Day 18. Sedatives are on hold. Neurology has signed off. The patient however remains notably agitated/restless with ABS of 25 (31.5,21,18.7). I will follow. - Diagnosis (1) Major neurocognitive disorder due to another medical condition with behavioral disturbance Status: Acute
--- NOTE | 2018-10-20 09:32 | P.PNCC ---
Subjective Subjective Remarks/Hospital Course: Patient is a 73-year-old male with past medical history significant for hypertension, COPD, Prostate carcinoma, history of previous lumbar laminectomy who came to the [place] emergency department as a transfer from transfer from [facility]. He was accepted by neurosurgery Dr. Peter for acute onset bilateral lower extremity weakness. Patient states that he woke up this morning around 6 AM with numbness and weakness of bilateral lower extremity. On attempt to walk he fell on his face due to weakness. Patient states that the strength got slight better since then. CT scan of the lumbar spine large area of soft attenuation attenuation in the ventral epidural space L2-L3 level suspicious for large disc extrusion with spinal canal stenosis with differential diagnosis involving hemorrhage, there is also at least moderate bilateral neural foraminal stenosis. I evaluate the patient in the ED. He complains of weakness more on the left leg which he is unable to lift. There is generalized numbness but he is able to feel my touch. Critical care was requested to admit the patient to the ICU. Discussed with Dr. Mittal ED and Dr. Peter neurosurgery. A stat MRI of the lumbar spine had been ordered. 10/03: Remains intubated sedated. Remains on Levophed at 10 mcg/min to maintain map above 70. Patient is s/p L2 to L5 posterior spinal fusion, Left L2 /3 microdiscectomy. (MRI showed large herniated disc at L2/3 and flex/ex showing instability at this level). On sedation hold patient is moving all 4 extremities. Hb 8.3 will transfuse 1 unit PRBC due to hypotension 10/04: Remains intubated sedated remains on 8 mcg/min of Levophed to maintain map above 75. Transfusing 1 unit PRBC for hemoglobin 7.4. post-op MRI with significant disc herniation at L2/3. Scheduled for surgery today with Dr. Peter 10/05: Patient underwent surgery on 10/04/2018 for removal residual disc at L2/ 3 right side based on post-op MRI. (s/p L2-5 revision fusion and left L2/3 discectomy on 10/02/18). Today patient's hypoxemia had improved, he was awake but on lightening sedation was very agitated so after a short CPAP trial patient was extubated. Shortly after extubation patient became very agitated requiring four-point restraints and physically nurses having to restrain him. 2 mg IV Ativan was given following which patient became partially responsive with obstructive airway sounds. Shortly became hypoxemic desaturated, became bradycardic in 40s and systolic blood pressure does drop to mid 40s. I was emergently called to the bedside I started bag and mask ventilation immediately. Half ampule of epinephrine was post IV. His heart rate in systolic blood pressure improved with bag and mask ventilation and epinephrine push however he remained unresponsive. Emergently intubated and placed on mechanical ventilation. Once more responsive will start on sedation with Versed. Start Levophed to maintain map above 65. Postintubation chest x-ray is pending. 10/06: Remains intubated heavily sedated for vent synchrony. Patient gets very agitated on holding sedation. We will start Precedex to facilitate vent weaning. Hemoglobin is 7.1, 1 unit of PRBC followed by IV Lasix ordered. 10/07: Agitated. TVs > 1.0 liter spontaneous. Extubated. Patient required reintubation about 5 hours later due to hypoxemia. 10/08: Intubated for the third time last evening. He is unable to tolerate extubation due to a combination of underlying lung disease and severe agitation. If the family wishes to proceed he will require tracheostomy for safe weaning from the ventilator. His baseline mental status is apparently pretty close to normal. 10/09: Tracheostomy placed yesterday. Large amounts of white thick secretions encountered. Chest x-ray continues with a pattern of pulmonary edema. We will continue aggressive twice daily diuretic therapy. Ostensibly plan is to transfer to [facility] at the beginning of next week. One family member is not on board with that yet however. 10/10: Lumbar drain has been placed. Continue spontaneous breathing trials through tracheostomy. Continue discussions with family about transfer to LTAC for long-term weaning. No evidence of infection. 10/11: Effective diuresis but now developing a mild prerenal azotemia. Will hold off for a while and gently hydrate. Now the tracheostomy is performed there is not quite urgency to desiccate his lungs. Hopefully we can work toward a cyst transferred to [facility] after lumbar drain discontinued. 10/12: Following tracheostomy we will continue with attempts at ventilator weaning. Patient has a lumbar drain in place in an attempt to stop a lumbar region wound CSF leak. [facility] will take this patient for long-term weaning once lumbar drain is out. Gentle hydration continues until such time as prerenal azotemia is attenuated. Continue enteral nutrition. 10/13: Remains on mechanical ventilation via tracheostomy. Still on significant sedation due to agitation issues. Lumbar drain continues to drain. Possible surgery tomorrow. 10/14: Remains sedated, on mechanical ventilation via tracheostomy. Scheduled for surgery today for CSF leak lumbar region. 10/15: Remains sedated on mechanical ventilation via tracheostomy. Status post revision of lumbar wound on 10/14 by neurosurgery. Lumbar drain in place and drained 120 cc since yesterday. 10/16: Remains on mechanical ventilation via tracheostomy. Still dealing with agitation on lightening sedation. On Precedex/fentanyl. Received 1 dose of Geodon last night. Also getting as needed Ativan and Seroquel. 10/17: We continue to deal with bouts of agitation which hamper her ability to wean him from the ventilator. Gas exchange remains acceptable. He has required 1 unit of blood transfusion. 10/18: Plan is to clamp drain friday and remove mid-week if lumbar dressing stays dry. Tolerating CPAP today we will try to progress to T piece. 10/19: Patient still intermittently agitated. Per neurology service request we will stop all sedation and analgesia aside from methadone. 10/20: We are unsuccessful getting past spontaneous breathing trials. Still not strong enough to tolerate T-piece. Objective Vital Signs / I&O: Vital Signs 10/19/18 10:00 10/19/18 11:00 10/19/18 11:07 Temperature 101.3 F H Pulse Rate 115 H 90 88 Respiratory Rate 75 H 73 H 29 H Pulse Oximetry 94 L 95 96 10/19/18 12:00 10/19/18 13:00 10/19/18 14:00 Temperature 101.0 F H Pulse Rate 101 H 100 H 100 H Respiratory Rate 40 H 50 H 41 H Pulse Oximetry 94 L 94 L 96 10/19/18 15:00 10/19/18 15:22 10/19/18 16:00 Temperature Pulse Rate 115 H 83 116 H Respiratory Rate 46 H 36 H 69 H Pulse Oximetry 99 98 98 10/19/18 17:00 10/19/18 18:00 10/19/18 19:00 Temperature Pulse Rate 110 H 104 H 96 H Respiratory Rate 37 H 33 H 22 Pulse Oximetry 90 L 93 L 93 L 10/19/18 19:37 10/19/18 20:00 10/19/18 21:00 Temperature 100.5 F H Pulse Rate 109 H 96 H 90 Respiratory Rate 33 H 31 H 37 H Pulse Oximetry 95 91 L 88 L 10/19/18 22:00 10/19/18 23:00 10/19/18 23:32 Temperature Pulse Rate 87 95 H 86 Respiratory Rate 34 H 44 H 36 H Pulse Oximetry 96 93 L 98 10/20/18 00:00 10/20/18 01:00 10/20/18 02:00 Temperature 100.6 F H Pulse Rate 86 99 H 104 H Respiratory Rate 35 H 46 H 45 H Pulse Oximetry 94 L 94 L 93 L 10/20/18 03:00 10/20/18 03:36 10/20/18 04:00 Temperature 101.3 F H 101.0 F H Pulse Rate 110 H 108 H Respiratory Rate 43 H 40 H 36 H Pulse Oximetry 94 L 96 92 L 10/20/18 05:00 10/20/18 06:00 10/20/18 07:17 Temperature Pulse Rate 126 H 82 Respiratory Rate 60 H 24 31 H Pulse Oximetry 90 L 92 L 94 L 10/20/18 07:21 Temperature Pulse Rate Respiratory Rate 33 H Pulse Oximetry 98 Intake & Output 10/19/18 10/20/18 10/20/18 18:59 06:59 18:59 Intake Total 2404 / 2404 1112 / 1112 Output Total 995 / 995 750 / 750 Balance 1409 / 1409 362 / 362 Weight 84.3 kg 96.6 kg Intake: IV 1815 / 1815 200 / 200 LR 1000 mL Inj 1,000 ML @ 100 1000 / 1000 mls/hr IV.CONT .Q10H ERIKA Rx#: [id number] Diprivan 1000 mg/100 ml Inj 1, 100 / 100 000 mg In 100 ml @ 5 MCG/KG/MIN 2.835 mls/hr IV.CONT TITRATE PRN Rx#:[id number] Azactam Inj 2,000 MG In NS Inj 100 / 100 200 / 200 100 ML @ 200 mls/hr IV.SIG Q8H ERIKA Rx#:[id number] Vancomycin Inj 1,500 MG In NS 515 / 515 Inj 500 ML @ 250 mls/hr IV.SIG Q24H ERIKA Rx#:[id number] Tube Feeding 389 / 389 432 / 432 Water Bolus Amount 200 / 200 480 / 480 Output: Urine Amount (Catheter) 950 / 950 750 / 750 Indwelling Urethral Catheter 950 / 950 750 / 750 Wound Drainage 45 / 45 Posterior Lumbar 45 / 45 Other: Date of Last Bowel Movement 10/16/18 10/16/18 Weight On Admission 84.3 kg Result Diagrams: 10/19/18 05:08 10/20/18 03:36 Objective Remarks: GENERAL: Elderly gentleman, ongoing vent weaning trials. Holding sedation. SKIN: warm/dry. HEAD: Normocephalic. Atraumatic EYES: No injection or drainage. No conjunctival icterus or injection NECK: Supple. Tracheostomy in place, site is clean and dry CARDIOVASCULAR: S1-S2 normal, no murmurs. No JVD RESPIRATORY: Good bilateral air movement, few scattered rhonchi persist, no wheezes. GASTROINTESTINAL: Abdomen soft, non-tender, nondistended. Bowel sounds present no guarding. MUSCULOSKELETAL: No cyanosis, trace edema. Warm, well-perfused. NEURO: Intubated via tracheostomy, holding sedation and antipsychotics. Moves all 4 limbs to stimulation. Remains episodically quite agitated with violent head shaking side to side. Of note, patient was perfectly well oriented and cooperative on admission. Lumbar drain in place and clamped with dressing over surgical site clean dry and intact, dry. 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 Code(s): M47.16 - Other spondylosis with myelopathy, lumbar region Status: Acute (2) Weakness of lower extremity Code(s): R29.898 - Other symptoms and signs involving the musculoskeletal system Status: Acute (3) COPD (chronic obstructive pulmonary disease) Code(s): J44.9 - Chronic obstructive pulmonary disease, unspecified Status: Chronic (4) History of prostate cancer Code(s): Z85.46 - Personal history of malignant neoplasm of prostate Status: Chronic (5) History of hypertension Code(s): Z86.79 - Personal history of other diseases of the circulatory system Status: Chronic - Assessment and Plan Plan: ASSESSMENT: Acute hypoxemic hypercarbic/hypoxemic respiratory failure Respiratory arrest after receiving Ativan on 10/05/2018 Hypotension now resolved Lumbar cord compression likely secondary to large herniated disc, with lower extremity weakness Right L2/L3 discectomy 10/04/2018 for removal residual disc at right L2/3 s/p L2-5 revision fusion and left L2/3 discectomy on 10/02/18. Hypotension on pressors History of previous lumbar posterior fusion and microdiscectomy by Dr. Hansen Acute on chronic kidney disease Anemia requiring transfusion History of prostate cancer COPD History of hypertension PLAN: NEURO: -MRI showing large herniated disc at L2/3 and flex/ex showing instability at this level. -s/p L2-5 revision fusion and left L2/3 discectomy on 10/02/18. -post-op MRI with significant disc herniation at right L2/3 despite resection, Right L2/L3 discectomy 10/04/2018 - Lumbar drain clamped, in place for CSF leak. Status post lumbar wound revision on 10/14 by neurosurgery -Continue to hold medications for agitation. -Hold all sedation and antipsychotics 10/19 -Test clamp lumbar drain started 10/19 RESP: -Extubated 10/05/18 however became unresponsive and hypoxic after receiving Ativan for agitation -Emergently reintubated and placed on mechanical ventilation -Currently on PRVC/AC -DuoNeb every 6 hours scheduled and as needed -Extubated again 10/07 -Required reintubation 5 hours after extubation due to secretions and hypoxemia. Situation made worse by underlying agitation. -Tracheostomy performed 10/08 -Continue spontaneous breathing trials. CV: -Cardiac decompensation most likely secondary to pulmonary problems, hypoxemia -Gas exchange improving -Fluid balance remains about right now GI: - IV famotidine. Continue tube feeds - Bowel regimen : -Monitor renal function closely. -Strict intake output, monitor and replete elect lytes, follow BUN and creatinine ID: -Sputum culture, stop cefepime due to rash, switched to IV Azactam and vancomycin due to rash on 10/16. -Adjust per ID consult for antibiotic management HEME: -Monitor CBC, coags ENDO: -Electrolyte replacement per protocol PROPH: -Bilateral lower extremity SCDs. No chemical DVT prophylaxis due to spinal surgery/continue famotidine LINES: -Utilize peripheral IVs, central line as needed -PT evaluate and treat All impression: His baseline mental status was quite good prior to this and so far the family has requested ongoing aggressive care. We will continue to try to clean up his lungs and encourage ventilator weaning. Lumbar drain in place, hold transfer to LTAC for now until drain is out.. The gentleman either has pleural effusions or renal failure depending how successfully we have diuresed him. He remains unstable and will likely be a long-term vent weaning problem, plan LTAC transfer when CSF drain is removed. Lumbar drain is clamped we will observe for any signs of leakage through the lumbar dressing.
--- NOTE | 2018-10-20 10:03 | P.PNNS ---
Subjective Interval history: moving extremities more spontaneously, lumbar drain clamped overnight, wound checked, no gross drainage but wound and dressing wet. Physical Exam Vital signs: Vital Signs 10/19/18 10:00 10/19/18 11:00 10/19/18 11:07 Temperature 101.3 F H Pulse Rate 115 H 90 88 Respiratory Rate 75 H 73 H 29 H Pulse Oximetry 94 L 95 96 10/19/18 12:00 10/19/18 13:00 10/19/18 14:00 Temperature 101.0 F H Pulse Rate 101 H 100 H 100 H Respiratory Rate 40 H 50 H 41 H Pulse Oximetry 94 L 94 L 96 10/19/18 15:00 10/19/18 15:22 10/19/18 16:00 Temperature Pulse Rate 115 H 83 116 H Respiratory Rate 46 H 36 H 69 H Pulse Oximetry 99 98 98 10/19/18 17:00 10/19/18 18:00 10/19/18 19:00 Temperature Pulse Rate 110 H 104 H 96 H Respiratory Rate 37 H 33 H 22 Pulse Oximetry 90 L 93 L 93 L 10/19/18 19:37 10/19/18 20:00 10/19/18 21:00 Temperature 100.5 F H Pulse Rate 109 H 96 H 90 Respiratory Rate 33 H 31 H 37 H Pulse Oximetry 95 91 L 88 L 10/19/18 22:00 10/19/18 23:00 10/19/18 23:32 Temperature Pulse Rate 87 95 H 86 Respiratory Rate 34 H 44 H 36 H Pulse Oximetry 96 93 L 98 10/20/18 00:00 10/20/18 01:00 10/20/18 02:00 Temperature 100.6 F H Pulse Rate 86 99 H 104 H Respiratory Rate 35 H 46 H 45 H Pulse Oximetry 94 L 94 L 93 L 10/20/18 03:00 10/20/18 03:36 10/20/18 04:00 Temperature 101.3 F H 101.0 F H Pulse Rate 110 H 108 H Respiratory Rate 43 H 40 H 36 H Pulse Oximetry 94 L 96 92 L 10/20/18 05:00 10/20/18 06:00 10/20/18 07:00 Temperature Pulse Rate 126 H 82 96 H Respiratory Rate 60 H 24 30 H Pulse Oximetry 90 L 92 L 92 L 10/20/18 07:17 10/20/18 07:21 10/20/18 08:00 Temperature Pulse Rate 90 Respiratory Rate 31 H 33 H 30 H Pulse Oximetry 94 L 98 94 L 10/20/18 09:00 Temperature 100.4 F H Pulse Rate 75 Respiratory Rate 25 H Pulse Oximetry 98 Intake & Output 10/19/18 10/20/18 10/20/18 18:59 06:59 18:59 Intake Total 2404 / 2404 1112 / 1112 Output Total 995 / 995 750 / 750 Balance 1409 / 1409 362 / 362 Weight 84.3 kg 96.6 kg Intake: IV 1815 / 1815 200 / 200 LR 1000 mL Inj 1,000 ML @ 100 1000 / 1000 mls/hr IV.CONT .Q10H ERIKA Rx#: [id number] Diprivan 1000 mg/100 ml Inj 1, 100 / 100 000 mg In 100 ml @ 5 MCG/KG/MIN 2.835 mls/hr IV.CONT TITRATE PRN Rx#:[id number] Azactam Inj 2,000 MG In NS Inj 100 / 100 200 / 200 100 ML @ 200 mls/hr IV.SIG Q8H ERIKA Rx#:[id number] Vancomycin Inj 1,500 MG In NS 515 / 515 Inj 500 ML @ 250 mls/hr IV.SIG Q24H ERIKA Rx#:[id number] Tube Feeding 389 / 389 432 / 432 Water Bolus Amount 200 / 200 480 / 480 Output: Urine Amount (Catheter) 950 / 950 750 / 750 Indwelling Urethral Catheter 950 / 950 750 / 750 Wound Drainage 45 / 45 Posterior Lumbar 45 / 45 Other: Date of Last Bowel Movement 10/16/18 10/16/18 10/16/18 Weight On Admission 84.3 kg Narrative: wound closed, sutures intact, wound and dressing wet but no obvious drainage seen - Urinary Catheter Management Indwelling Urethral Catheter Cath placed during this visit: yes Reason for continuing: Hourly intake/output Insertion date: 10/02/18 Insertion time: 20:32 Assessment and Plan - Plan 73yoM po (10/02/18) L2-5 revision fusion and left L2/3 discectomy 10/15/18 pod#1 revision of lumbar wound. Keep Lumbar Drain at 5cm below EAC, goal 160/ 12 hours (or 120/8 hour shift). 10/16/18 CSF starting to show yellow-- sample sent to micro/lab dressing dry. continue lumbar drainage until Friday10/17/18 f/u CSF-- negative thus far. MRI/Brain/C-spine/EEG-negative -- appreciate Neurology consult Lumbar drain until Friday, then clamp, then d/c Friday if dressing continues to be dry 10/18/18 Continue lumbar drainage until tomorrow then clamp and observe back dressing. Appreciate Neurology consult re: difficult to explain neuro exam PEG tube yesterday appreciate ID recs/abx re: rash 10/19: lumbar drain clamped continue monitor lumbar wound 10/20: wound and dressing wet but no obvious drainage seen, lumbar drain reopened and continue draining for now
[2018-10-20] MEDS: hydrALAZINE HCl Inj 20 MG/ML Vial IV.PUSH PRN ×2 (11:27→22:59)
[2018-10-20] MEDS: Aztreonam Inj 2 GM in Sodium Chloride 0.9% Inj 100 ML IV.SIG SCH ×2 (11:40→21:13)
[2018-10-20] MEDS: Vancomycin Inj 1,500 MG in Sodium Chlor 0.9% Inj 500 ML IV.SIG SCH (13:00)
[2018-10-20 14:23] LABS: ABG Base Excess -0.2 mmol/L (-2-2); ABG PCO2 46 mmHg (38-42); ABG PO2 74 mmHg (61-120)
--- NOTE | 2018-10-20 14:35 | P.PNID ---
Subjective Remarks: Patient is a 73-year-old male, initially presented at [facility] for evaluation of acute onset bilateral lower extremity weakness. He apparently woke up on the morning of presentation with numbness and weakness of bilateral lower extremity. He tried to walk but fell on his face. Patient presented to [facility] and CT of the lumbar spine showed a large area of soft attenuation in the ventral epidural space at L2-L3 suspicious for a large disc extrusion with spinal canal stenosis. He was transferred here at [facility] for neurosurgical evaluation. He underwent surgery on October 02 and had L2-L5 posterior spinal fusion, and left L2-L3 microdiscectomy. He was on the vent postoperatively. He had a repeat MRI on October 03 which showed disc herniation, and the patient underwent surgery again and had a right discectomy L2-L3. Patient has had problem with his respiratory status. He was extubated and reintubated 3 times, and subsequently underwent tracheostomy on October 08. On October 09 he was found to have a CSF leak, and underwent placement of a lumbar drain. He continues to have drainage, and he went to surgery again on October 14 and had revision of the lumbar wound, and repair of the leak, and has a lumbar drain again. Infectious disease consultation has been requested to assist with antibiotic management in a patient who has had a CSF leak. Notes reviewed D/W RN Still with fevers Was very agitated earlier - now looks tired ON the vent No change in neuro status Not on sedation Lumbar drain in place - clamped yesterday, started leaking , now draining again , has blood tinged CSF C/S pending Last CSF C/S 10/14 - negative Rash - looks papular, stable, looks less prominent RPR negative Antibiotics: Azactam Vancomycin Past Medical History: Back pain Colonic polyp GERD (gastroesophageal reflux disease) Hypertension Neuropathy Osteoarthritis Prostate carcinoma Endarterectomy Allergies/Adverse Reactions: Allergies No Known Allergies (Unknown, Uncoded 10/27/17 16:04) Objective Vital Signs 10/19/18 15:00 10/19/18 15:22 10/19/18 16:00 Temperature Pulse Rate 115 H 83 116 H Respiratory Rate 46 H 36 H 69 H Pulse Oximetry 99 98 98 10/19/18 17:00 10/19/18 18:00 10/19/18 19:00 Temperature Pulse Rate 110 H 104 H 96 H Respiratory Rate 37 H 33 H 22 Pulse Oximetry 90 L 93 L 93 L 10/19/18 19:37 10/19/18 20:00 10/19/18 21:00 Temperature 100.5 F H Pulse Rate 109 H 96 H 90 Respiratory Rate 33 H 31 H 37 H Pulse Oximetry 95 91 L 88 L 10/19/18 22:00 10/19/18 23:00 10/19/18 23:32 Temperature Pulse Rate 87 95 H 86 Respiratory Rate 34 H 44 H 36 H Pulse Oximetry 96 93 L 98 10/20/18 00:00 10/20/18 01:00 10/20/18 02:00 Temperature 100.6 F H Pulse Rate 86 99 H 104 H Respiratory Rate 35 H 46 H 45 H Pulse Oximetry 94 L 94 L 93 L 10/20/18 03:00 10/20/18 03:36 10/20/18 04:00 Temperature 101.3 F H 101.0 F H Pulse Rate 110 H 108 H Respiratory Rate 43 H 40 H 36 H Pulse Oximetry 94 L 96 92 L 10/20/18 05:00 10/20/18 06:00 10/20/18 07:00 Temperature Pulse Rate 126 H 82 96 H Respiratory Rate 60 H 24 30 H Pulse Oximetry 90 L 92 L 92 L 10/20/18 07:17 10/20/18 07:21 10/20/18 08:00 Temperature Pulse Rate 90 Respiratory Rate 31 H 33 H 30 H Pulse Oximetry 94 L 98 94 L 10/20/18 09:00 10/20/18 10:00 10/20/18 11:36 Temperature 100.4 F H Pulse Rate 75 75 Respiratory Rate 25 H 25 H 29 H Pulse Oximetry 98 94 L 98 Intake & Output 10/19/18 10/20/18 10/20/18 18:59 06:59 18:59 Intake Total 2404 / 2404 1112 / 1112 1000 / 1000 Output Total 995 / 995 750 / 750 Balance 1409 / 1409 362 / 362 1000 / 1000 Weight 84.3 kg 96.6 kg Intake: IV 1815 / 1815 200 / 200 1000 / 1000 LR 1000 mL Inj 1,000 ML @ 100 1000 / 1000 1000 / 1000 mls/hr IV.CONT .Q10H [facility] Rx#: [id number] Diprivan 1000 mg/100 ml Inj 1, 100 / 100 000 mg In 100 ml @ 5 MCG/KG/MIN 2.835 mls/hr IV.CONT TITRATE PRN Rx#:[id number] Azactam Inj 2,000 MG In NS Inj 100 / 100 200 / 200 100 ML @ 200 mls/hr IV.SIG Q8H [facility] Rx#:[id number] Vancomycin Inj 1,500 MG In NS 515 / 515 Inj 500 ML @ 250 mls/hr IV.SIG Q24H [facility] Rx#:[id number] Tube Feeding 389 / 389 432 / 432 Water Bolus Amount 200 / 200 480 / 480 Output: Urine Amount (Catheter) 950 / 950 750 / 750 Indwelling Urethral Catheter 950 / 950 750 / 750 Wound Drainage 45 Posterior Lumbar Other: Date of Last Bowel Movement 10/16/18 10/16/18 10/16/18 Weight On Admission 84.3 kg 10/19/18 18:35 Blood - Peripheral Aerobic Blood Culture - Preliminary No growth in 1 day 10/19/18 18:35 Blood - Peripheral Anaerobic Blood Culture - Final QNS - See aerobic report. 10/19/18 18:45 Blood - Peripheral Aerobic Blood Culture - Preliminary No growth in 1 day 10/19/18 18:45 Blood - Peripheral Anaerobic Blood Culture - Final QNS - See aerobic report. 10/19/18 17:30 Sputum - Endotracheal Gram Stain - Final 10/19/18 17:30 Sputum - Endotracheal Sputum Culture - Pending 10/19/18 17:30 Clean Catch Urine Urine Culture - Pending 10/16/18 10:18 Lumbar Puncture Gram Stain - Final 10/16/18 10:18 Lumbar Puncture CSF Culture - Final No growth in 72 hours Lab - Hematology Results 10/18/18 10/19/18 15:21 05:08 WBC 12.6 H RBC 2.53 L Hgb 7.5 L 7.2 L Hct 22.4 L 22.0 L MCV 87.0 MCH 28.6 MCHC 32.9 RDW 18.8 H Plt Count 200 MPV 8.2 Neut % (Auto) 88.1 H Lymph % (Auto) 5.0 L [place] % (Auto) 5.7 Eos % (Auto) 0.7 Baso % (Auto) 0.5 Neut # (Auto) 11.1 H Lymph # (Auto) 0.6 L [place] # (Auto) 0.7 Eos # (Auto) 0.1 Baso # (Auto) 0.1 WBC Differential . Differential Comment Auto diff final Lab - Chemistry Results 10/16/18 10/19/18 10/20/18 14:05 05:08 03:36 Sodium 147 H 146 H Potassium 3.5 3.5 Chloride 115 H 116 H Carbon Dioxide 23.7 24.9 Anion Gap 8 5 BUN 45 H 47 H Creatinine 1.36 H 1.34 H Estimated GFR 51 L 52 L Random Glucose 119 H 123 H Calcium 8.5 8.6 Total Bilirubin 0.3 0.2 AST 44 H 49 H ALT 24 27 Alkaline Phosphatase 99 97 Total Protein 5.3 L 5.4 L Albumin 1.5 L 1.5 L Methylmalonic Acid 0.17 Imaging: ITS Impressions Lumbar Spine X-Ray 10/04/18 00:00 CONCLUSION: Lumbar Puncture Fluoroscopy 10/09/18 00:00 CONCLUSION: 1. Uncomplicated lumbar drain placement as above. Lumbar Spine MRI 10/09/18 00:00 CONCLUSION: 1. Significant improvement in the postoperative appearance of the spine with good decompression at L2-3. There is no significant thecal sac impingement. 2. Moderate facet disease is seen in the fused levels stable interval. Thoracic Spine MRI 10/09/18 00:00 CONCLUSION: 1. Significant cervical spinal stenosis, not evaluated on this exam. 2. There is no intrathoracic cord compression. 3. Conus is unremarkable. Cervical Spine MRI 10/16/18 11:58 CONCLUSION: Mild spondylosis and disc disease. No significant canal or foraminal compromise. No explanation for myelopathy. Head MRI 10/16/18 11:58 CONCLUSION: No acute intracranial findings. Chest X-Ray 10/19/18 00:00 CONCLUSION: 1. Interval removal of NGT. 2. Diffuse airspace opacities throughout the right lung with more confluent consolidation in the medial right lower lung zone. 3. Patchy mid to lower left lung zone airspace disease. 4. Overall findings are concerning for aspiration or diffuse infection given history of fever. Physical Exam: GENERAL: Lethargic. on the vent, not in respiratory distress. hH has this intermittent movement of his head with grimacing SKIN: Cool and dry. Has scattered papular rash in his trunk, and his lower extremity. HEAD: Atraumatic. Normocephalic. No temporal wasting, or tenderness. EYES: [place] conjunctiva. No petechia or hemorrhage. Pupils equal, round and reactive to light. Extraocular movements full and intact. No scleral icterus. No injection or drainage. EARS, NOSE AND THROAT: Nose without bleeding or purulent nasal discharge. Slightly dry oral mucosa NECK: Tracheostomy site looks ok CARDIOVASCULAR: Regular rate and rhythm. No murmurs, rubs or gallops heard RESPIRATORY: Coarse breath sounds bilaterally, decreased at the bases. ABDOMEN: Soft, globular, non-tender, nondistended. Bowel sounds present and normoactive. No guarding. No rebound. No organomegaly. EXTREMITIES: No clubbing, cyanosis. Has bilateral pedal edema. Well perfused and warm. BACK: Dressing in place, lumbar drain in place with blood tinged CSF NEUROLOGICAL: Lethargic PSYCHIATRIC: Unable to assess LINE: No evidence of infection Assessment and Plan - Plan Impression Recurrent CSF leak, S/P surgery x2 for leak, last surgery 10/14. Culture pending. Drug eruption, better, likely from Cefepime Recurrent respiratory failure Encephalopathy New fever Recommendation Continue IV Azactam. Continue Vancomycin. Add Levaquin Follow C/S Follow temps Monitor progress Weaning per CCM D/W RN
[2018-10-20] MEDS: levoFLOXacin 750 MG Tablet PO SCH ×2 (16:57→20:08)
[2018-10-21] MEDS: hydrALAZINE HCl Inj 20 MG/ML Vial IV.PUSH PRN ×3 (02:27→23:23)
[2018-10-21] MEDS: Aztreonam Inj 2 GM in Sodium Chloride 0.9% Inj 100 ML IV.SIG SCH ×3 (03:15→21:02)
[2018-10-21] MEDS: Metoprolol Inj 5 MG/5 ML Vial IV.PUSH PRN (03:15)
[2018-10-21] MEDS: Oral Hygiene Kit OROPHARYNG SCH ×3 (04:18→17:23)
[2018-10-21] MEDS: Methadone 10 MG Tablet PO SCH ×2 (04:48→17:41)
[2018-10-21 05:45] LABS: Mean Corpuscular Hemoglobin 28.9 pg (27.0-34.0); Mean Corpuscular Volume 87.4 fL (80.0-100.0); Mean Platelet Volume 8.3 fL (7.0-11.0); Platelet Count 253 th/mm3 (150-450); Red Blood Count 2.14 mil/mm3 (4.50-5.90); Red Cell Distribution Width 18.6 % (11.6-17.2); White Blood Count 11.9 th/mm3 (4.0-11.0)
[2018-10-21 05:57] LABS: Hematocrit 18.7 % (39.0-51.0); Hemoglobin 6.2 gm/dL (13.0-17.0)
[2018-10-21 06:07] LABS: Alanine Aminotransferase 32 U/L (12-78); Albumin 1.4 g/dL (3.4-5.0); Aspartate Aminotransferase 45 U/L (15-37); Blood Urea Nitrogen 53 mg/dL (7-18); Calcium 8.6 mg/dL (8.5-10.1); Carbon Dioxide 25.6 meq/L (21.0-32.0); Glomerular Filtration Rate 57 mL/min (>89); Glucose,Random 119 mg/dL (74-106)
[2018-10-21 06:27] LABS: Anion Gap 6 meq/L (5-15); Chloride 116 meq/L (98-107); Potassium 3.5 meq/L (3.5-5.1); Sodium 148 meq/L (136-145)
[2018-10-21 06:30] LABS: Alkaline Phosphatase 97 U/L (45-117); Total Protein 5.4 g/dL (6.4-8.2)
[2018-10-21] MEDS: Metoprolol Tartrate 50 MG Tablet PO SCH ×2 (08:00→21:07)
[2018-10-21] MEDS: Famotidine PF Inj 20 MG/2 ML Vial IV.PUSH SCH ×2 (08:00→21:07)
[2018-10-21] MEDS: Senna/Docusate Sodium 8.6/50 MG Tablet PO SCH ×2 (08:00→21:08)
[2018-10-21] MEDS: levoFLOXacin 750 MG Tablet PO SCH (08:00)
[2018-10-21] MEDS: Chlorhexidine 0.12% Oral Kit 15 ML UDC OROPHARYNG SCH ×2 (08:01→21:08)
[2018-10-21] MEDS: Sodium Chloride 0.9% 2 ML Flush BID IV.FLUSH SCH ×2 (08:01→21:07)
--- NOTE | 2018-10-21 08:35 | P.PNCC ---
Subjective Subjective Remarks/Hospital Course: Patient is a 73-year-old male with past medical history significant for hypertension, COPD, Prostate carcinoma, history of previous lumbar laminectomy who came to the [facility] emergency department as a transfer from transfer from [facility]. He was accepted by neurosurgery Dr. Peter for acute onset bilateral lower extremity weakness. Patient states that he woke up this morning around 6 AM with numbness and weakness of bilateral lower extremity. On attempt to walk he fell on his face due to weakness. Patient states that the strength got slight better since then. CT scan of the lumbar spine large area of soft attenuation attenuation in the ventral epidural space L2-L3 level suspicious for large disc extrusion with spinal canal stenosis with differential diagnosis involving hemorrhage, there is also at least moderate bilateral neural foraminal stenosis. I evaluate the patient in the ED. He complains of weakness more on the left leg which he is unable to lift. There is generalized numbness but he is able to feel my touch. Critical care was requested to admit the patient to the ICU. Discussed with Dr. Mittal ED and Dr. Peter neurosurgery. A stat MRI of the lumbar spine had been ordered. 10/03: Remains intubated sedated. Remains on Levophed at 10 mcg/min to maintain map above 70. Patient is s/p L2 to L5 posterior spinal fusion, Left L2 /3 microdiscectomy. (MRI showed large herniated disc at L2/3 and flex/ex showing instability at this level). On sedation hold patient is moving all 4 extremities. Hb 8.3 will transfuse 1 unit PRBC due to hypotension 10/04: Remains intubated sedated remains on 8 mcg/min of Levophed to maintain map above 75. Transfusing 1 unit PRBC for hemoglobin 7.4. post-op MRI with significant disc herniation at L2/3. Scheduled for surgery today with Dr. Peter 10/05: Patient underwent surgery on 10/04/2018 for removal residual disc at L2/ 3 right side based on post-op MRI. (s/p L2-5 revision fusion and left L2/3 discectomy on 10/02/18). Today patient's hypoxemia had improved, he was awake but on lightening sedation was very agitated so after a short CPAP trial patient was extubated. Shortly after extubation patient became very agitated requiring four-point restraints and physically nurses having to restrain him. 2 mg IV Ativan was given following which patient became partially responsive with obstructive airway sounds. Shortly became hypoxemic desaturated, became bradycardic in 40s and systolic blood pressure does drop to mid 40s. I was emergently called to the bedside I started bag and mask ventilation immediately. Half ampule of epinephrine was post IV. His heart rate in systolic blood pressure improved with bag and mask ventilation and epinephrine push however he remained unresponsive. Emergently intubated and placed on mechanical ventilation. Once more responsive will start on sedation with Versed. Start Levophed to maintain map above 65. Postintubation chest x-ray is pending. 10/06: Remains intubated heavily sedated for vent synchrony. Patient gets very agitated on holding sedation. We will start Precedex to facilitate vent weaning. Hemoglobin is 7.1, 1 unit of PRBC followed by IV Lasix ordered. 10/07: Agitated. TVs > 1.0 liter spontaneous. Extubated. Patient required reintubation about 5 hours later due to hypoxemia. 10/08: Intubated for the third time last evening. He is unable to tolerate extubation due to a combination of underlying lung disease and severe agitation. If the family wishes to proceed he will require tracheostomy for safe weaning from the ventilator. His baseline mental status is apparently pretty close to normal. 10/09: Tracheostomy placed yesterday. Large amounts of white thick secretions encountered. Chest x-ray continues with a pattern of pulmonary edema. We will continue aggressive twice daily diuretic therapy. Ostensibly plan is to transfer to [facility] at the beginning of next week. One family member is not on board with that yet however. 10/10: Lumbar drain has been placed. Continue spontaneous breathing trials through tracheostomy. Continue discussions with family about transfer to LTAC for long-term weaning. No evidence of infection. 10/11: Effective diuresis but now developing a mild prerenal azotemia. Will hold off for a while and gently hydrate. Now the tracheostomy is performed there is not quite urgency to desiccate his lungs. Hopefully we can work toward a cyst transferred to community health after lumbar drain discontinued. 10/12: Following tracheostomy we will continue with attempts at ventilator weaning. Patient has a lumbar drain in place in an attempt to stop a lumbar region wound CSF leak. [facility] will take this patient for long-term weaning once lumbar drain is out. Gentle hydration continues until such time as prerenal azotemia is attenuated. Continue enteral nutrition. 10/13: Remains on mechanical ventilation via tracheostomy. Still on significant sedation due to agitation issues. Lumbar drain continues to drain. Possible surgery tomorrow. 10/14: Remains sedated, on mechanical ventilation via tracheostomy. Scheduled for surgery today for CSF leak lumbar region. 10/15: Remains sedated on mechanical ventilation via tracheostomy. Status post revision of lumbar wound on 10/14 by neurosurgery. Lumbar drain in place and drained 120 cc since yesterday. 10/16: Remains on mechanical ventilation via tracheostomy. Still dealing with agitation on lightening sedation. On Precedex/fentanyl. Received 1 dose of Geodon last night. Also getting as needed Ativan and Seroquel. 10/17: We continue to deal with bouts of agitation which hamper her ability to wean him from the ventilator. Gas exchange remains acceptable. He has required 1 unit of blood transfusion. 10/18: Plan is to clamp drain friday and remove mid-week if lumbar dressing stays dry. Tolerating CPAP today we will try to progress to T piece. 10/19: Patient still intermittently agitated. Per neurology service request we will stop all sedation and analgesia aside from methadone. 10/20: We are unsuccessful getting past spontaneous breathing trials. Still not strong enough to tolerate T-piece. 10/21: Remains encephalopathic, on mechanical ventilation via tracheostomy. Failed CPAP trial this morning. Hemoglobin 6.2. Ordered 2 units PRBCs to be transfused. No overt evidence of blood loss. Temperature 100.7 this morning. Lumbar drain in place and put out 120 cc CSF overnight. Off all sedatives. Tolerating tube feeds via PEG. Objective Vital Signs / I&O: Vital Signs 10/20/18 09:00 10/20/18 10:00 10/20/18 11:00 Temperature 100.4 F H Pulse Rate 75 75 91 H Respiratory Rate 25 H 25 H 28 H Blood Pressure Pulse Oximetry 98 94 L 96 10/20/18 11:36 10/20/18 12:00 10/20/18 13:00 Temperature Pulse Rate 98 H 115 H Respiratory Rate 29 H 37 H 35 H Blood Pressure Pulse Oximetry 98 100 97 10/20/18 14:00 10/20/18 14:18 10/20/18 14:21 Temperature Pulse Rate 114 H 102 H 105 H Respiratory Rate 37 H 27 H 30 H Blood Pressure 177/81 H 176/74 H Pulse Oximetry 95 95 96 10/20/18 14:30 10/20/18 14:45 10/20/18 15:00 Temperature Pulse Rate 102 H 107 H 119 H Respiratory Rate 33 H 32 H 42 H Blood Pressure 178/79 H 168/75 H 208/96 H Pulse Oximetry 96 96 10/20/18 15:01 10/20/18 15:15 10/20/18 15:30 Temperature Pulse Rate 104 H 107 H Respiratory Rate 35 H 28 H 36 H Blood Pressure 180/83 H 180/83 H Pulse Oximetry 90 L 96 92 L 10/20/18 15:45 10/20/18 16:00 10/20/18 16:15 Temperature Pulse Rate 108 H 108 H 109 H Respiratory Rate 33 H 34 H 32 H Blood Pressure 182/85 H 179/81 H 171/77 H Pulse Oximetry 91 L 83 L 91 L 10/20/18 16:30 10/20/18 16:45 10/20/18 17:00 Temperature Pulse Rate 105 H 105 H 103 H Respiratory Rate 37 H 43 H 47 H Blood Pressure 175/79 H 163/67 H 187/82 H Pulse Oximetry 92 L 97 10/20/18 17:12 10/20/18 17:15 10/20/18 17:30 Temperature Pulse Rate 123 H 123 H 116 H Respiratory Rate 54 H 40 H 29 H Blood Pressure 213/98 H 198/97 H 200/93 H Pulse Oximetry 10/20/18 17:45 10/20/18 18:00 10/20/18 18:15 Temperature Pulse Rate 123 H 116 H 121 H Respiratory Rate 38 H 40 H 49 H Blood Pressure 197/149 H 198/91 H 182/84 H Pulse Oximetry 100 88 L 100 10/20/18 18:30 10/20/18 18:45 10/20/18 19:00 Temperature Pulse Rate 108 H 106 H 99 H Respiratory Rate 47 H 47 H 33 H Blood Pressure 174/77 H 155/67 H 156/71 H Pulse Oximetry 100 100 100 10/20/18 19:30 10/20/18 19:45 10/20/18 20:00 Temperature 100.6 F H Pulse Rate 98 H 102 H 96 H Respiratory Rate 24 28 H 19 Blood Pressure 172/74 H 163/72 H 163/73 H Pulse Oximetry 100 100 100 10/20/18 20:15 10/20/18 20:30 10/20/18 20:45 Temperature Pulse Rate 99 H 107 H 103 H Respiratory Rate 14 28 H 29 H Blood Pressure 166/74 H 180/78 H 167/74 H Pulse Oximetry 100 100 97 10/20/18 21:00 10/20/18 21:15 10/20/18 21:30 Temperature Pulse Rate 83 84 82 Respiratory Rate 28 H 27 H 16 Blood Pressure 158/72 H 171/71 H 170/72 H Pulse Oximetry 100 100 99 10/20/18 21:45 10/20/18 22:00 10/20/18 22:15 Temperature Pulse Rate 78 97 H 98 H Respiratory Rate 24 36 H 40 H Blood Pressure 172/78 H 171/70 H 195/88 H Pulse Oximetry 100 99 99 10/20/18 22:30 10/20/18 22:49 10/20/18 23:00 Temperature Pulse Rate 86 88 95 H Respiratory Rate 33 H 28 H 53 H Blood Pressure 194/84 H 205/86 H 186/81 H Pulse Oximetry 99 99 99 10/20/18 23:15 10/20/18 23:20 10/20/18 23:30 Temperature Pulse Rate 104 H 123 H Respiratory Rate 32 H 38 H 36 H Blood Pressure 176/78 H 184/84 H Pulse Oximetry 100 98 95 10/20/18 23:45 10/21/18 00:00 10/21/18 00:15 Temperature 100 F H Pulse Rate 116 H 117 H 104 H Respiratory Rate 37 H 48 H 58 H Blood Pressure 143/96 H 181/77 H 180/80 H Pulse Oximetry 99 98 98 10/21/18 00:30 10/21/18 00:45 10/21/18 01:00 Temperature Pulse Rate 104 H 105 H 117 H Respiratory Rate 47 H 43 H 42 H Blood Pressure 174/75 H 191/80 H 182/71 H Pulse Oximetry 100 99 97 10/21/18 01:15 10/21/18 01:37 10/21/18 01:45 Temperature Pulse Rate 107 H 115 H 120 H Respiratory Rate 33 H 37 H 40 H Blood Pressure 185/80 H 158/76 H 197/98 H Pulse Oximetry 94 L 94 L 95 10/21/18 02:00 10/21/18 02:15 10/21/18 02:18 Temperature Pulse Rate 119 H 132 H 128 H Respiratory Rate 48 H 51 H 45 H Blood Pressure 185/129 H 219/106 H 210/90 H Pulse Oximetry 95 95 95 10/21/18 03:00 10/21/18 03:25 10/21/18 04:00 Temperature 100.4 F H Pulse Rate 125 H 109 H Respiratory Rate 46 H 26 H 35 H Blood Pressure 187/77 H 162/70 H Pulse Oximetry 93 L 94 L 98 10/21/18 05:00 10/21/18 06:00 10/21/18 07:30 Temperature Pulse Rate 121 H 124 H Respiratory Rate 33 H 32 H 23 Blood Pressure 163/77 H 172/77 H Pulse Oximetry 99 97 93 L Intake & Output 10/20/18 10/21/18 10/21/18 18:59 06:59 18:59 Intake Total 2164 / 2164 1197 / 1197 200 / 200 Output Total 815 / 815 1110 / 1110 Balance 1349 / 1349 87 / 87 200 / 200 Weight 98.6 kg Intake: IV 1615 / 1615 200 / 200 200 / 200 LR 1000 mL Inj 1,000 ML @ 100 1000 / 1000 200 / 200 mls/hr IV.CONT .Q10H ERIKA Rx#: [id number] Azactam Inj 2 GM In NS Inj 100 100 / 100 200 / 200 ML @ 200 mls/hr IV.SIG Q8H ERIKA Rx#:[id number] Vancomycin Inj 1,500 MG In NS 515 / 515 Inj 500 ML @ 250 mls/hr IV.SIG Q24H ERIKA Rx#:[id number] Tube Feeding 349 / 349 517 / 517 Water Bolus Amount 200 / 200 480 / 480 Output: Urine Amount (Catheter) 750 / 750 1000 / 1000 Indwelling Urethral Catheter 750 / 750 1000 / 1000 Wound Drainage 65 / 65 110 / 110 Posterior Lumbar 65 / 65 110 / 110 Other: Date of Last Bowel Movement 10/16/18 10/20/18 Result Diagrams: 10/21/18 04:35 10/21/18 04:35 Other Results: Microbiology 10/19/18 18:35 Aerobic Blood Culture - Preliminary Blood - Peripheral gram positive cocci Anaerobic Blood Culture - Final QNS - See aerobic report. 10/19/18 17:30 Gram Stain - Final Sputum - Endotracheal Sputum Culture - Preliminary gram negative rods 10/19/18 17:30 Urine Culture - Preliminary Clean Catch Urine Immature growth - reincubate 10/19/18 18:45 Aerobic Blood Culture - Preliminary Blood - Peripheral No growth in 1 day Anaerobic Blood Culture - Final QNS - See aerobic report. 10/16/18 10:18 Gram Stain - Final Lumbar Puncture CSF Culture - Final No growth in 72 hours Imaging: Impressions Chest X-Ray 10/19/18 00:00 CONCLUSION: 1. Interval removal of NGT. 2. Diffuse airspace opacities throughout the right lung with more confluent consolidation in the medial right lower lung zone. 3. Patchy mid to lower left lung zone airspace disease. 4. Overall findings are concerning for aspiration or diffuse infection given history of fever. Objective Remarks: GENERAL: Elderly gentleman, ongoing vent weaning trials. Holding sedation. SKIN: warm/dry. HEAD: Normocephalic. Atraumatic EYES: No injection or drainage. No conjunctival icterus or injection NECK: Supple. Tracheostomy in place, site is clean and dry CARDIOVASCULAR: S1-S2 normal, no murmurs. No JVD RESPIRATORY: Good bilateral air movement, few scattered rhonchi persist, no wheezes. GASTROINTESTINAL: Abdomen soft, non-tender, nondistended. Bowel sounds present no guarding. MUSCULOSKELETAL: No cyanosis, trace edema. Warm, well-perfused. NEURO: Intubated via tracheostomy, holding sedation and antipsychotics. Moves all 4 limbs to stimulation. Remains episodically quite agitated with violent head shaking side to side. Of note, patient was perfectly well oriented and cooperative on admission. Lumbar drain in place and clamped with dressing over surgical site clean and intact. 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 Code(s): M47.16 - Other spondylosis with myelopathy, lumbar region Status: Acute (2) Weakness of lower extremity Code(s): R29.898 - Other symptoms and signs involving the musculoskeletal system Status: Acute (3) COPD (chronic obstructive pulmonary disease) Code(s): J44.9 - Chronic obstructive pulmonary disease, unspecified Status: Chronic (4) History of prostate cancer Code(s): Z85.46 - Personal history of malignant neoplasm of prostate Status: Chronic (5) History of hypertension Code(s): Z86.79 - Personal history of other diseases of the circulatory system Status: Chronic - Assessment and Plan Plan: ASSESSMENT: Acute hypoxemic hypercarbic/hypoxemic respiratory failure Respiratory arrest after receiving Ativan on 10/05/2018 Hypotension now resolved Lumbar cord compression likely secondary to large herniated disc, with lower extremity weakness Right L2/L3 discectomy 10/04/2018 for removal residual disc at right L2/3 s/p L2-5 revision fusion and left L2/3 discectomy on 10/02/18. Hypotension on pressors History of previous lumbar posterior fusion and microdiscectomy by Dr. Hansen Acute on chronic kidney disease Anemia requiring transfusion History of prostate cancer COPD History of hypertension PLAN: NEURO: -MRI showing large herniated disc at L2/3 and flex/ex showing instability at this level. -s/p L2-5 revision fusion and left L2/3 discectomy on 10/02/18. -post-op MRI with significant disc herniation at right L2/3 despite resection, Right L2/L3 discectomy 10/04/2018 - Lumbar drain clamped, in place for CSF leak. Status post lumbar wound revision on 10/14 by neurosurgery -Continue to hold medications for agitation. -Hold all sedation and antipsychotics 10/19 -Test clamp lumbar drain started 10/19 RESP: -Extubated 10/05/18 however became unresponsive and hypoxic after receiving Ativan for agitation -Emergently reintubated and placed on mechanical ventilation -Currently on PRVC/AC -DuoNeb every 6 hours scheduled and as needed -Extubated again 10/07 -Required reintubation 5 hours after extubation due to secretions and hypoxemia. Situation made worse by underlying agitation. -Tracheostomy performed 10/08 -Continue spontaneous breathing trials. CV: -Cardiac decompensation most likely secondary to pulmonary problems, hypoxemia -Gas exchange improving -Fluid balance remains about right now GI: - IV famotidine. Continue tube feeds - Bowel regimen : -Monitor renal function closely. -Strict intake output, monitor and replete elect lytes, follow BUN and creatinine ID: -Sputum culture, stop cefepime due to rash, switched to IV Azactam and vancomycin due to rash on 10/16. -Adjust per ID consult for antibiotic management -10/19 Sputum growing gram-negative rods, one positive blood culture with GPC. HEME: -Monitor CBC, coags -Ordered 2 units PRBCs to be transfused for hemoglobin 6.2 on 11/28. No overt evidence of blood loss. ENDO: -Electrolyte replacement per protocol PROPH: -Bilateral lower extremity SCDs. No chemical DVT prophylaxis due to spinal surgery/continue famotidine LINES: -Utilize peripheral IVs, central line as needed -PT evaluate and treat All impression: His baseline mental status was quite good prior to this and so far the family has requested ongoing aggressive care. We will continue to try to clean up his lungs and encourage ventilator weaning. Lumbar drain in place, hold transfer to LTAC for now until drain is out.. The gentleman either has pleural effusions or renal failure depending how successfully we have diuresed him. He remains unstable and will likely be a long-term vent weaning problem, plan LTAC transfer when CSF drain is removed. Lumbar drain is clamped we will observe for any signs of leakage through the lumbar dressing.
[2018-10-21] MEDS ORDERED: Sodium Chlor 0.9% Inj 250 ML IV.SIG SCH (09:00)
--- NOTE | 2018-10-21 09:22 | P.PNNS ---
Subjective Interval history: drain reopened yesterday, wound rechecked this morning much label drier. Physical Exam Vital signs: Vital Signs 10/20/18 10:00 10/20/18 11:00 10/20/18 11:36 Temperature Pulse Rate 75 91 H Respiratory Rate 25 H 28 H 29 H Blood Pressure Pulse Oximetry 94 L 96 98 10/20/18 12:00 10/20/18 13:00 10/20/18 14:00 Temperature Pulse Rate 98 H 115 H 114 H Respiratory Rate 37 H 35 H 37 H Blood Pressure Pulse Oximetry 100 97 95 10/20/18 14:18 10/20/18 14:21 10/20/18 14:30 Temperature Pulse Rate 102 H 105 H 102 H Respiratory Rate 27 H 30 H 33 H Blood Pressure 177/81 H 176/74 H 178/79 H Pulse Oximetry 95 96 96 10/20/18 14:45 10/20/18 15:00 10/20/18 15:01 Temperature Pulse Rate 107 H 119 H Respiratory Rate 32 H 42 H 35 H Blood Pressure 168/75 H 208/96 H Pulse Oximetry 96 90 L 10/20/18 15:15 10/20/18 15:30 10/20/18 15:45 Temperature Pulse Rate 104 H 107 H 108 H Respiratory Rate 28 H 36 H 33 H Blood Pressure 180/83 H 180/83 H 182/85 H Pulse Oximetry 96 92 L 91 L 10/20/18 16:00 10/20/18 16:15 10/20/18 16:30 Temperature Pulse Rate 108 H 109 H 105 H Respiratory Rate 34 H 32 H 37 H Blood Pressure 179/81 H 171/77 H 175/79 H Pulse Oximetry 83 L 91 L 92 L 10/20/18 16:45 10/20/18 17:00 10/20/18 17:12 Temperature Pulse Rate 105 H 103 H 123 H Respiratory Rate 43 H 47 H 54 H Blood Pressure 163/67 H 187/82 H 213/98 H Pulse Oximetry 97 10/20/18 17:15 10/20/18 17:30 10/20/18 17:45 Temperature Pulse Rate 123 H 116 H 123 H Respiratory Rate 40 H 29 H 38 H Blood Pressure 198/97 H 200/93 H 197/149 H Pulse Oximetry 100 10/20/18 18:00 10/20/18 18:15 10/20/18 18:30 Temperature Pulse Rate 116 H 121 H 108 H Respiratory Rate 40 H 49 H 47 H Blood Pressure 198/91 H 182/84 H 174/77 H Pulse Oximetry 88 L 100 100 10/20/18 18:45 10/20/18 19:00 10/20/18 19:30 Temperature Pulse Rate 106 H 99 H 98 H Respiratory Rate 47 H 33 H 24 Blood Pressure 155/67 H 156/71 H 172/74 H Pulse Oximetry 100 100 100 10/20/18 19:45 10/20/18 20:00 10/20/18 20:15 Temperature 100.6 F H Pulse Rate 102 H 96 H 99 H Respiratory Rate 28 H 19 14 Blood Pressure 163/72 H 163/73 H 166/74 H Pulse Oximetry 100 100 100 10/20/18 20:30 10/20/18 20:45 10/20/18 21:00 Temperature Pulse Rate 107 H 103 H 83 Respiratory Rate 28 H 29 H 28 H Blood Pressure 180/78 H 167/74 H 158/72 H Pulse Oximetry 100 97 100 10/20/18 21:15 10/20/18 21:30 10/20/18 21:45 Temperature Pulse Rate 84 82 78 Respiratory Rate 27 H 16 24 Blood Pressure 171/71 H 170/72 H 172/78 H Pulse Oximetry 100 99 100 10/20/18 22:00 10/20/18 22:15 10/20/18 22:30 Temperature Pulse Rate 97 H 98 H 86 Respiratory Rate 36 H 40 H 33 H Blood Pressure 171/70 H 195/88 H 194/84 H Pulse Oximetry 99 99 99 10/20/18 22:49 10/20/18 23:00 10/20/18 23:15 Temperature Pulse Rate 88 95 H 104 H Respiratory Rate 28 H 53 H 32 H Blood Pressure 205/86 H 186/81 H 176/78 H Pulse Oximetry 99 99 100 10/20/18 23:20 10/20/18 23:30 10/20/18 23:45 Temperature Pulse Rate 123 H 116 H Respiratory Rate 38 H 36 H 37 H Blood Pressure 184/84 H 143/96 H Pulse Oximetry 98 95 99 10/21/18 00:00 10/21/18 00:15 10/21/18 00:30 Temperature 100 F H Pulse Rate 117 H 104 H 104 H Respiratory Rate 48 H 58 H 47 H Blood Pressure 181/77 H 180/80 H 174/75 H Pulse Oximetry 98 98 100 10/21/18 00:45 10/21/18 01:00 10/21/18 01:15 Temperature Pulse Rate 105 H 117 H 107 H Respiratory Rate 43 H 42 H 33 H Blood Pressure 191/80 H 182/71 H 185/80 H Pulse Oximetry 99 97 94 L 10/21/18 01:37 10/21/18 01:45 10/21/18 02:00 Temperature Pulse Rate 115 H 120 H 119 H Respiratory Rate 37 H 40 H 48 H Blood Pressure 158/76 H 197/98 H 185/129 H Pulse Oximetry 94 L 95 95 10/21/18 02:15 10/21/18 02:18 10/21/18 03:00 Temperature Pulse Rate 132 H 128 H 125 H Respiratory Rate 51 H 45 H 46 H Blood Pressure 219/106 H 210/90 H 187/77 H Pulse Oximetry 95 95 93 L 10/21/18 03:25 10/21/18 04:00 10/21/18 05:00 Temperature 100.4 F H Pulse Rate 109 H 121 H Respiratory Rate 26 H 35 H 33 H Blood Pressure 162/70 H 163/77 H Pulse Oximetry 94 L 98 99 10/21/18 06:00 10/21/18 07:30 Temperature Pulse Rate 124 H Respiratory Rate 32 H 23 Blood Pressure 172/77 H Pulse Oximetry 97 93 L Intake & Output 10/20/18 10/21/18 10/21/18 18:59 06:59 18:59 Intake Total 2164 / 2164 1197 / 1197 200 / 200 Output Total 815 / 815 1110 / 1110 Balance 1349 / 1349 87 / 87 200 / 200 Weight 98.6 kg Intake: IV 1615 / 1615 200 / 200 200 / 200 LR 1000 mL Inj 1,000 ML @ 100 1000 / 1000 200 / 200 mls/hr IV.CONT .Q10H ERIKA Rx#: [id number] Azactam Inj 2 GM In NS Inj 100 100 / 100 200 / 200 ML @ 200 mls/hr IV.SIG Q8H ERIKA Rx#:[id number] Vancomycin Inj 1,500 MG In NS 515 / 515 Inj 500 ML @ 250 mls/hr IV.SIG Q24H ERIKA Rx#:[id number] Tube Feeding 349 / 349 517 / 517 Water Bolus Amount 200 / 200 480 / 480 Output: Urine Amount (Catheter) 750 / 750 1000 / 1000 Indwelling Urethral Catheter 750 / 750 1000 / 1000 Wound Drainage 65 / 65 110 / 110 Posterior Lumbar 65 / 65 110 / 110 Other: Date of Last Bowel Movement 10/16/18 10/20/18 Narrative: wound closed, sutures intact, wound and dressing dry awake, eyes open intermittently moves legs - Urinary Catheter Management Indwelling Urethral Catheter Cath placed during this visit: yes Reason for continuing: Hourly intake/output Insertion date: 10/02/18 Insertion time: 20:32 Assessment and Plan - Plan 73yoM po (10/02/18) L2-5 revision fusion and left L2/3 discectomy 10/15/18 pod#1 revision of lumbar wound. Keep Lumbar Drain at 5cm below EAC, goal 160/ 12 hours (or 120/8 hour shift). 10/16/18 CSF starting to show yellow-- sample sent to micro/lab dressing dry. continue lumbar drainage until Friday10/17/18 f/u CSF-- negative thus far. MRI/Brain/C-spine/EEG-negative -- appreciate Neurology consult Lumbar drain until Friday, then clamp, then d/c Friday if dressing continues to be dry 10/18/18 Continue lumbar drainage until tomorrow then clamp and observe back dressing. Appreciate Neurology consult re: difficult to explain neuro exam PEG tube yesterday appreciate ID recs/abx re: rash 10/19: lumbar drain clamped continue monitor lumbar wound 10/20: wound and dressing wet but no obvious drainage seen, lumbar drain reopened and continue draining for now 10/21: wound much label drier today following reopening of lumbar drain, will cont lumbar drain for now
[2018-10-21 10:25] LABS: ABG Base Excess 0.2 mmol/L (-2-2); ABG PCO2 44 mmHg (38-42); ABG PO2 55 mmHg (61-120)
--- NOTE | 2018-10-21 10:59 | P.PNID ---
Subjective Remarks: Patient is a 73-year-old male, initially presented at [facility] for evaluation of acute onset bilateral lower extremity weakness. He apparently woke up on the morning of presentation with numbness and weakness of bilateral lower extremity. He tried to walk but fell on his face. Patient presented to [facility] and CT of the lumbar spine showed a large area of soft attenuation in the ventral epidural space at L2-L3 suspicious for a large disc extrusion with spinal canal stenosis. He was transferred here at [facility] for neurosurgical evaluation. He underwent surgery on October 02 and had L2-L5 posterior spinal fusion, and left L2-L3 microdiscectomy. He was on the vent postoperatively. He had a repeat MRI on October 03 which showed disc herniation, and the patient underwent surgery again and had a right discectomy L2-L3. Patient has had problem with his respiratory status. He was extubated and reintubated 3 times, and subsequently underwent tracheostomy on October 08. On October 09 he was found to have a CSF leak, and underwent placement of a lumbar drain. He continues to have drainage, and he went to surgery again on October 14 and had revision of the lumbar wound, and repair of the leak, and has a lumbar drain again. Infectious disease consultation has been requested to assist with antibiotic management in a patient who has had a CSF leak. Notes reviewed D/W RN Still with fevers ON the vent No change in neuro status Not on sedation Lumbar drain in place Has 2 BC with GPC Last CSF C/S 10/16 - negative Rash - looks papular, stable, looks less prominent RPR negative Antibiotics: Azactam Vancomycin Lines: PIV Past Medical History: Back pain Colonic polyp GERD (gastroesophageal reflux disease) Hypertension Neuropathy Osteoarthritis Prostate carcinoma Endarterectomy Allergies/Adverse Reactions: Allergies No Known Allergies (Unknown, Uncoded 10/27/17 16:04) Objective Vital Signs 10/20/18 11:00 10/20/18 11:36 10/20/18 12:00 Temperature Pulse Rate 91 H 98 H Respiratory Rate 28 H 29 H 37 H Blood Pressure Pulse Oximetry 96 98 100 10/20/18 13:00 10/20/18 14:00 10/20/18 14:18 Temperature Pulse Rate 115 H 114 H 102 H Respiratory Rate 35 H 37 H 27 H Blood Pressure 177/81 H Pulse Oximetry 97 95 95 10/20/18 14:21 10/20/18 14:30 10/20/18 14:45 Temperature Pulse Rate 105 H 102 H 107 H Respiratory Rate 30 H 33 H 32 H Blood Pressure 176/74 H 178/79 H 168/75 H Pulse Oximetry 96 96 96 10/20/18 15:00 10/20/18 15:01 10/20/18 15:15 Temperature Pulse Rate 119 H 104 H Respiratory Rate 42 H 35 H 28 H Blood Pressure 208/96 H 180/83 H Pulse Oximetry 90 L 96 10/20/18 15:30 10/20/18 15:45 10/20/18 16:00 Temperature Pulse Rate 107 H 108 H 108 H Respiratory Rate 36 H 33 H 34 H Blood Pressure 180/83 H 182/85 H 179/81 H Pulse Oximetry 92 L 91 L 83 L 10/20/18 16:15 10/20/18 16:30 10/20/18 16:45 Temperature Pulse Rate 109 H 105 H 105 H Respiratory Rate 32 H 37 H 43 H Blood Pressure 171/77 H 175/79 H 163/67 H Pulse Oximetry 91 L 92 L 97 10/20/18 17:00 10/20/18 17:12 10/20/18 17:15 Temperature Pulse Rate 103 H 123 H 123 H Respiratory Rate 47 H 54 H 40 H Blood Pressure 187/82 H 213/98 H 198/97 H Pulse Oximetry 10/20/18 17:30 10/20/18 17:45 10/20/18 18:00 Temperature Pulse Rate 116 H 123 H 116 H Respiratory Rate 29 H 38 H 40 H Blood Pressure 200/93 H 197/149 H 198/91 H Pulse Oximetry 100 88 L 10/20/18 18:15 10/20/18 18:30 10/20/18 18:45 Temperature Pulse Rate 121 H 108 H 106 H Respiratory Rate 49 H 47 H 47 H Blood Pressure 182/84 H 174/77 H 155/67 H Pulse Oximetry 100 100 100 10/20/18 19:00 10/20/18 19:30 10/20/18 19:45 Temperature Pulse Rate 99 H 98 H 102 H Respiratory Rate 33 H 24 28 H Blood Pressure 156/71 H 172/74 H 163/72 H Pulse Oximetry 100 100 100 10/20/18 20:00 10/20/18 20:15 10/20/18 20:30 Temperature 100.6 F H Pulse Rate 96 H 99 H 107 H Respiratory Rate 19 14 28 H Blood Pressure 163/73 H 166/74 H 180/78 H Pulse Oximetry 100 100 100 10/20/18 20:45 10/20/18 21:00 10/20/18 21:15 Temperature Pulse Rate 103 H 83 84 Respiratory Rate 29 H 28 H 27 H Blood Pressure 167/74 H 158/72 H 171/71 H Pulse Oximetry 97 100 100 10/20/18 21:30 10/20/18 21:45 10/20/18 22:00 Temperature Pulse Rate 82 78 97 H Respiratory Rate 16 24 36 H Blood Pressure 170/72 H 172/78 H 171/70 H Pulse Oximetry 99 100 99 10/20/18 22:15 10/20/18 22:30 10/20/18 22:49 Temperature Pulse Rate 98 H 86 88 Respiratory Rate 40 H 33 H 28 H Blood Pressure 195/88 H 194/84 H 205/86 H Pulse Oximetry 99 99 99 10/20/18 23:00 10/20/18 23:15 10/20/18 23:20 Temperature Pulse Rate 95 H 104 H Respiratory Rate 53 H 32 H 38 H Blood Pressure 186/81 H 176/78 H Pulse Oximetry 99 100 98 10/20/18 23:30 10/20/18 23:45 10/21/18 00:00 Temperature 100 F H Pulse Rate 123 H 116 H 117 H Respiratory Rate 36 H 37 H 48 H Blood Pressure 184/84 H 143/96 H 181/77 H Pulse Oximetry 95 99 98 10/21/18 00:15 10/21/18 00:30 10/21/18 00:45 Temperature Pulse Rate 104 H 104 H 105 H Respiratory Rate 58 H 47 H 43 H Blood Pressure 180/80 H 174/75 H 191/80 H Pulse Oximetry 98 100 99 10/21/18 01:00 10/21/18 01:15 10/21/18 01:37 Temperature Pulse Rate 117 H 107 H 115 H Respiratory Rate 42 H 33 H 37 H Blood Pressure 182/71 H 185/80 H 158/76 H Pulse Oximetry 97 94 L 94 L 10/21/18 01:45 10/21/18 02:00 10/21/18 02:15 Temperature Pulse Rate 120 H 119 H 132 H Respiratory Rate 40 H 48 H 51 H Blood Pressure 197/98 H 185/129 H 219/106 H Pulse Oximetry 95 95 95 10/21/18 02:18 10/21/18 03:00 10/21/18 03:25 Temperature Pulse Rate 128 H 125 H Respiratory Rate 45 H 46 H 26 H Blood Pressure 210/90 H 187/77 H Pulse Oximetry 95 93 L 94 L 10/21/18 04:00 10/21/18 05:00 10/21/18 06:00 Temperature 100.4 F H Pulse Rate 109 H 121 H 124 H Respiratory Rate 35 H 33 H 32 H Blood Pressure 162/70 H 163/77 H 172/77 H Pulse Oximetry 98 99 97 10/21/18 07:30 10/21/18 08:00 Temperature Pulse Rate 124 H Respiratory Rate 23 Blood Pressure Pulse Oximetry 93 L Intake & Output 10/20/18 10/21/18 10/21/18 18:59 06:59 18:59 Intake Total 2164 / 2164 1197 / 1197 200 / 200 Output Total 815 / 815 1110 / 1110 Balance 1349 / 1349 87 / 87 200 / 200 Weight 98.6 kg Intake: IV 1615 / 1615 200 / 200 200 / 200 LR 1000 mL Inj 1,000 ML @ 100 1000 / 1000 200 / 200 mls/hr IV.CONT .Q10H ERIKA Rx#: [id number] Azactam Inj 2 GM In NS Inj 100 100 / 100 200 / 200 ML @ 200 mls/hr IV.SIG Q8H ERIKA Rx#:[id number] Vancomycin Inj 1,500 MG In NS 515 / 515 Inj 500 ML @ 250 mls/hr IV.SIG Q24H ERIKA Rx#:[id number] Tube Feeding 349 / 349 517 / 517 Water Bolus Amount 200 / 200 480 / 480 Output: Urine Amount (Catheter) 750 / 750 1000 / 1000 Indwelling Urethral Catheter 750 / 750 1000 / 1000 Wound Drainage 65 / 65 110 / 110 Posterior Lumbar 65 / 65 110 / 110 Other: Date of Last Bowel Movement 10/16/18 10/20/18 10/20/18 10/19/18 17:30 Sputum - Endotracheal Gram Stain - Final 10/19/18 17:30 Sputum - Endotracheal Sputum Culture - Preliminary gram negative rods 10/19/18 18:45 Blood - Peripheral Aerobic Blood Culture - Preliminary gram positive cocci 10/19/18 18:45 Blood - Peripheral Anaerobic Blood Culture - Final QNS - See aerobic report. 10/19/18 18:35 Blood - Peripheral Aerobic Blood Culture - Preliminary gram positive cocci 10/19/18 18:35 Blood - Peripheral Anaerobic Blood Culture - Final QNS - See aerobic report. 10/19/18 17:30 Clean Catch Urine Urine Culture - Preliminary Immature growth - reincubate 10/16/18 10:18 Lumbar Puncture Gram Stain - Final 10/16/18 10:18 Lumbar Puncture CSF Culture - Final No growth in 72 hours Lab - Hematology Results 10/21/18 04:35 WBC 11.9 H RBC 2.14 L Hgb 6.2 L* Hct 18.7 L* MCV 87.4 MCH 28.9 MCHC 33.0 RDW 18.6 H Plt Count 253 MPV 8.3 Lab - Chemistry Results 10/16/18 10/20/18 10/21/18 14:05 03:36 04:35 Sodium 146 H 148 H Potassium 3.5 3.5 Chloride 116 H 116 H Carbon Dioxide 24.9 25.6 Anion Gap 5 6 BUN 47 H 53 H Creatinine 1.34 H 1.24 Estimated GFR 52 L 57 L Random Glucose 123 H 119 H Calcium 8.6 8.6 Total Bilirubin 0.2 0.2 AST 49 H 45 H ALT 27 32 Alkaline Phosphatase 97 97 Total Protein 5.4 L 5.4 L Albumin 1.5 L 1.4 L Methylmalonic Acid 0.17 Imaging: ITS Impressions Lumbar Spine X-Ray 10/04/18 00:00 CONCLUSION: Lumbar Puncture Fluoroscopy 10/09/18 00:00 CONCLUSION: 1. Uncomplicated lumbar drain placement as above. Lumbar Spine MRI 10/09/18 00:00 CONCLUSION: 1. Significant improvement in the postoperative appearance of the spine with good decompression at L2-3. There is no significant thecal sac impingement. 2. Moderate facet disease is seen in the fused levels stable interval. Thoracic Spine MRI 10/09/18 00:00 CONCLUSION: 1. Significant cervical spinal stenosis, not evaluated on this exam. 2. There is no intrathoracic cord compression. 3. Conus is unremarkable. Cervical Spine MRI 10/16/18 11:58 CONCLUSION: Mild spondylosis and disc disease. No significant canal or foraminal compromise. No explanation for myelopathy. Head MRI 10/16/18 11:58 CONCLUSION: No acute intracranial findings. Chest X-Ray 10/19/18 00:00 CONCLUSION: 1. Interval removal of NGT. 2. Diffuse airspace opacities throughout the right lung with more confluent consolidation in the medial right lower lung zone. 3. Patchy mid to lower left lung zone airspace disease. 4. Overall findings are concerning for aspiration or diffuse infection given history of fever. Physical Exam: GENERAL: Lethargic. on the vent, not in respiratory distress. hH has this intermittent movement of his head with grimacing SKIN: Cool and dry. Has scattered papular rash in his trunk, and his lower extremity. HEAD: Atraumatic. Normocephalic. No temporal wasting, or tenderness. EYES: [place] conjunctiva. No petechia or hemorrhage. Pupils equal, round and reactive to light. Extraocular movements full and intact. No scleral icterus. No injection or drainage. EARS, NOSE AND THROAT: Nose without bleeding or purulent nasal discharge. Slightly dry oral mucosa NECK: Tracheostomy site looks ok CARDIOVASCULAR: Regular rate and rhythm. No murmurs, rubs or gallops heard RESPIRATORY: Coarse breath sounds bilaterally, decreased at the bases. ABDOMEN: Soft, globular, non-tender, nondistended. Bowel sounds present and normoactive. No guarding. No rebound. No organomegaly. EXTREMITIES: No clubbing, cyanosis. Has bilateral pedal edema. Well perfused and warm. BACK: Dressing in place, lumbar drain in place with blood tinged CSF NEUROLOGICAL: Lethargic PSYCHIATRIC: Unable to assess LINE: No evidence of infection Assessment and Plan - Plan Impression Recurrent CSF leak, S/P surgery x2 for leak, last surgery 10/14. Culture pending. Drug eruption, better, likely from Cefepime Recurrent respiratory failure Encephalopathy New fever (+) BC Recommendation Continue IV Azactam. Continue Vancomycin. Continue Levaquin Repeat 2 BC repeat CXF C/S and cell count Follow C/S Follow temps Monitor progress Weaning per CCM D/W RN
[2018-10-21] MEDS ORDERED: Pharmacy Ordered Lab Info OTHER ONE (12:45)
[2018-10-21] MEDS: Vancomycin Inj 1,500 MG in Sodium Chlor 0.9% Inj 500 ML IV.SIG SCH (13:40)
[2018-10-21] MEDS ORDERED: Metoprolol Inj 5 MG/5 ML Vial IV.PUSH ONE (18:00)
[2018-10-21] MEDS: Divalproex 125 MG Sprinkles Capsule PO SCH (21:06)
[2018-10-21 22:14] LABS: Hematocrit 27.9 % (39.0-51.0); Hemoglobin 9.2 gm/dL (13.0-17.0)
[2018-10-22] MEDS: Acetaminophen 325 MG Tablet PO PRN ×2 (01:17→20:52)
[2018-10-22] MEDS: Aztreonam Inj 2 GM in Sodium Chloride 0.9% Inj 100 ML IV.SIG SCH ×3 (03:39→20:51)
[2018-10-22] MEDS: Metoprolol Inj 5 MG/5 ML Vial IV.PUSH PRN ×2 (03:40→14:25)
[2018-10-22] MEDS: hydrALAZINE HCl Inj 20 MG/ML Vial IV.PUSH PRN ×3 (03:40→17:02)
[2018-10-22] MEDS: Oral Hygiene Kit OROPHARYNG SCH ×4 (04:10→17:13)
[2018-10-22 05:07] LABS: Alanine Aminotransferase 32 U/L (12-78); Albumin 1.5 g/dL (3.4-5.0); Anion Gap 8 meq/L (5-15); Aspartate Aminotransferase 40 U/L (15-37); Blood Urea Nitrogen 60 mg/dL (7-18); Calcium 8.7 mg/dL (8.5-10.1); Carbon Dioxide 23.6 meq/L (21.0-32.0); Chloride 117 meq/L (98-107); Glomerular Filtration Rate 59 mL/min (>89); Glucose,Random 120 mg/dL (74-106); Potassium 3.6 meq/L (3.5-5.1); Sodium 149 meq/L (136-145)
[2018-10-22 05:10] LABS: Alkaline Phosphatase 100 U/L (45-117); Total Protein 5.6 g/dL (6.4-8.2)
[2018-10-22] MEDS: Methadone 10 MG Tablet PO SCH ×2 (06:10→17:02)
[2018-10-22] MEDS: Senna/Docusate Sodium 8.6/50 MG Tablet PO SCH ×2 (08:30→20:52)
[2018-10-22] MEDS: Famotidine PF Inj 20 MG/2 ML Vial IV.PUSH SCH ×2 (09:51→20:52)
[2018-10-22] MEDS: Metoprolol Tartrate 50 MG Tablet PO SCH ×2 (09:51→20:52)
[2018-10-22] MEDS: Chlorhexidine 0.12% Oral Kit 15 ML UDC OROPHARYNG SCH ×2 (09:52→20:51)
[2018-10-22] MEDS: Sodium Chloride 0.9% 2 ML Flush BID IV.FLUSH SCH ×2 (09:52→20:52)
[2018-10-22] MEDS: levoFLOXacin 750 MG Tablet PO SCH (09:52)
--- NOTE | 2018-10-22 10:13 | P.PNCC ---
Subjective Subjective Remarks/Hospital Course: Patient is a 73-year-old male with past medical history significant for hypertension, COPD, Prostate carcinoma, history of previous lumbar laminectomy who came to the [place] emergency department as a transfer from transfer from [facility]. He was accepted by neurosurgery Dr. Peter for acute onset bilateral lower extremity weakness. Patient states that he woke up this morning around 6 AM with numbness and weakness of bilateral lower extremity. On attempt to walk he fell on his face due to weakness. Patient states that the strength got slight better since then. CT scan of the lumbar spine large area of soft attenuation attenuation in the ventral epidural space L2-L3 level suspicious for large disc extrusion with spinal canal stenosis with differential diagnosis involving hemorrhage, there is also at least moderate bilateral neural foraminal stenosis. I evaluate the patient in the ED. He complains of weakness more on the left leg which he is unable to lift. There is generalized numbness but he is able to feel my touch. Critical care was requested to admit the patient to the ICU. Discussed with Dr. Mittal ED and Dr. Peter neurosurgery. A stat MRI of the lumbar spine had been ordered. 10/03: Remains intubated sedated. Remains on Levophed at 10 mcg/min to maintain map above 70. Patient is s/p L2 to L5 posterior spinal fusion, Left L2 /3 microdiscectomy. (MRI showed large herniated disc at L2/3 and flex/ex showing instability at this level). On sedation hold patient is moving all 4 extremities. Hb 8.3 will transfuse 1 unit PRBC due to hypotension 10/04: Remains intubated sedated remains on 8 mcg/min of Levophed to maintain map above 75. Transfusing 1 unit PRBC for hemoglobin 7.4. post-op MRI with significant disc herniation at L2/3. Scheduled for surgery today with Dr. Peter 10/05: Patient underwent surgery on 10/04/2018 for removal residual disc at L2/ 3 right side based on post-op MRI. (s/p L2-5 revision fusion and left L2/3 discectomy on 10/02/18). Today patient's hypoxemia had improved, he was awake but on lightening sedation was very agitated so after a short CPAP trial patient was extubated. Shortly after extubation patient became very agitated requiring four-point restraints and physically nurses having to restrain him. 2 mg IV Ativan was given following which patient became partially responsive with obstructive airway sounds. Shortly became hypoxemic desaturated, became bradycardic in 40s and systolic blood pressure does drop to mid 40s. I was emergently called to the bedside I started bag and mask ventilation immediately. Half ampule of epinephrine was post IV. His heart rate in systolic blood pressure improved with bag and mask ventilation and epinephrine push however he remained unresponsive. Emergently intubated and placed on mechanical ventilation. Once more responsive will start on sedation with Versed. Start Levophed to maintain map above 65. Postintubation chest x-ray is pending. 10/06: Remains intubated heavily sedated for vent synchrony. Patient gets very agitated on holding sedation. We will start Precedex to facilitate vent weaning. Hemoglobin is 7.1, 1 unit of PRBC followed by IV Lasix ordered. 10/07: Agitated. TVs > 1.0 liter spontaneous. Extubated. Patient required reintubation about 5 hours later due to hypoxemia. 10/08: Intubated for the third time last evening. He is unable to tolerate extubation due to a combination of underlying lung disease and severe agitation. If the family wishes to proceed he will require tracheostomy for safe weaning from the ventilator. His baseline mental status is apparently pretty close to normal. 10/09: Tracheostomy placed yesterday. Large amounts of white thick secretions encountered. Chest x-ray continues with a pattern of pulmonary edema. We will continue aggressive twice daily diuretic therapy. Ostensibly plan is to transfer to [facility] at the beginning of next week. One family member is not on board with that yet however. 10/10: Lumbar drain has been placed. Continue spontaneous breathing trials through tracheostomy. Continue discussions with family about transfer to LTAC for long-term weaning. No evidence of infection. 10/11: Effective diuresis but now developing a mild prerenal azotemia. Will hold off for a while and gently hydrate. Now the tracheostomy is performed there is not quite urgency to desiccate his lungs. Hopefully we can work toward a cyst transferred to [facility] after lumbar drain discontinued. 10/12: Following tracheostomy we will continue with attempts at ventilator weaning. Patient has a lumbar drain in place in an attempt to stop a lumbar region wound CSF leak. [facility] will take this patient for long-term weaning once lumbar drain is out. Gentle hydration continues until such time as prerenal azotemia is attenuated. Continue enteral nutrition. 10/13: Remains on mechanical ventilation via tracheostomy. Still on significant sedation due to agitation issues. Lumbar drain continues to drain. Possible surgery tomorrow. 10/14: Remains sedated, on mechanical ventilation via tracheostomy. Scheduled for surgery today for CSF leak lumbar region. 10/15: Remains sedated on mechanical ventilation via tracheostomy. Status post revision of lumbar wound on 10/14 by neurosurgery. Lumbar drain in place and drained 120 cc since yesterday. 10/16: Remains on mechanical ventilation via tracheostomy. Still dealing with agitation on lightening sedation. On Precedex/fentanyl. Received 1 dose of Geodon last night. Also getting as needed Ativan and Seroquel. 10/17: We continue to deal with bouts of agitation which hamper her ability to wean him from the ventilator. Gas exchange remains acceptable. He has required 1 unit of blood transfusion. 10/18: Plan is to clamp drain friday and remove mid-week if lumbar dressing stays dry. Tolerating CPAP today we will try to progress to T piece. 10/19: Patient still intermittently agitated. Per neurology service request we will stop all sedation and analgesia aside from methadone. 10/20: We are unsuccessful getting past spontaneous breathing trials. Still not strong enough to tolerate T-piece. 10/21: Remains encephalopathic, on mechanical ventilation via tracheostomy. Failed CPAP trial this morning. Hemoglobin 6.2. Ordered 2 units PRBCs to be transfused. No overt evidence of blood loss. Temperature 100.7 this morning. Lumbar drain in place and put out 120 cc CSF overnight. Off all sedatives. Tolerating tube feeds via PEG. 10/22: Remains encephalopathic. Has spontaneous eye opening however not following commands. Lumbar drain remains in place Objective Vital Signs / I&O: Vital Signs 10/21/18 11:00 10/21/18 11:10 10/21/18 11:20 Temperature 100.4 F H 100.3 F H Pulse Rate 116 H 111 H 111 H Respiratory Rate 50 H 30 H 32 H Blood Pressure 192/87 H 178/83 H 178/83 H Pulse Oximetry 99 98 93 L 10/21/18 11:46 10/21/18 12:00 10/21/18 13:00 Temperature Pulse Rate 104 H 107 H 101 H Respiratory Rate 25 H 27 H 27 H Blood Pressure 188/90 H 197/86 H Pulse Oximetry 97 97 98 10/21/18 13:11 10/21/18 14:05 10/21/18 15:00 Temperature Pulse Rate 112 H 117 H Respiratory Rate 34 H 60 H Blood Pressure 176/85 H 163/78 H Pulse Oximetry 99 97 97 10/21/18 15:21 10/21/18 16:00 10/21/18 17:00 Temperature 99.7 F H Pulse Rate 119 H 124 H Respiratory Rate 28 H 49 H 54 H Blood Pressure 189/91 H 182/87 H Pulse Oximetry 90 L 92 L 94 L 10/21/18 18:00 10/21/18 19:56 10/21/18 20:00 Temperature 98.5 F Pulse Rate 98 H 95 H Respiratory Rate 52 H 21 Blood Pressure 157/81 H 143/68 H Pulse Oximetry 95 99 100 10/21/18 21:00 10/21/18 22:00 10/21/18 23:00 Temperature Pulse Rate 118 H 98 H 100 H Respiratory Rate Blood Pressure 188/90 H 166/76 H 175/84 H Pulse Oximetry 98 99 92 L 10/21/18 23:33 10/21/18 23:50 10/22/18 00:00 Temperature 98.6 F Pulse Rate 105 H 108 H Respiratory Rate 30 H Blood Pressure 158/70 H 157/66 H Pulse Oximetry 97 99 99 10/22/18 01:00 10/22/18 02:00 10/22/18 03:00 Temperature Pulse Rate 121 H 112 H 118 H Respiratory Rate 35 H 37 H Blood Pressure 174/84 H 169/79 H 168/79 H Pulse Oximetry 100 97 10/22/18 03:59 10/22/18 04:00 10/22/18 05:00 Temperature Pulse Rate 113 H Respiratory Rate 30 H 60 H Blood Pressure 161/76 H Pulse Oximetry 98 99 97 10/22/18 05:57 10/22/18 06:00 10/22/18 07:19 Temperature Pulse Rate 108 H 101 H Respiratory Rate 17 Blood Pressure 175/91 H 157/72 H Pulse Oximetry 100 100 100 Intake & Output 10/21/18 10/22/18 10/22/18 18:59 06:59 18:59 Intake Total 1999 / 1999 990 / 990 Output Total 970 / 970 1215 / 1215 Balance 1030 / 1030 -225 / -225 Weight 97.2 kg Intake: IV 300 / 300 100 / 100 LR 1000 mL Inj 1,000 ML @ 100 200 / 200 mls/hr IV.CONT .Q10H [facility] Rx#: [id number] Azactam Inj 2 GM In NS Inj 100 100 / 100 100 / 100 ML @ 200 mls/hr IV.SIG Q8H [facility] Rx#:[id number] Tube Feeding 540 / 540 800 / 800 Tube Irrigant 360 / 360 90 / 90 Intake (Blood Product) Amt 800 / 800 Rbc As-3 Leukoreduced Unit 400 / 400 [id number] Rbc As-3 Leukoreduced Unit 400 / 400 [id number] Output: Urine Amount (Catheter) 850 / 850 1150 / 1150 Indwelling Urethral Catheter 850 / 850 1150 / 1150 Wound Drainage 120 / 120 65 / 65 Posterior Lumbar 120 / 120 65 / 65 Other: Date of Last Bowel Movement 10/21/18 10/22/18 # Bowel Movements 1 4 Result Diagrams: 10/21/18 21:25 10/22/18 04:10 Objective Remarks: GENERAL: Elderly gentleman, ongoing vent weaning trials. Holding sedation. SKIN: warm/dry. HEAD: Normocephalic. Atraumatic EYES: No injection or drainage. No conjunctival icterus or injection NECK: Supple. Tracheostomy in place, site is clean and dry CARDIOVASCULAR: S1-S2 normal, no murmurs. No JVD RESPIRATORY: Good bilateral air movement, few scattered rhonchi persist, no wheezes. GASTROINTESTINAL: Abdomen soft, non-tender, nondistended. Bowel sounds present no guarding. MUSCULOSKELETAL: No cyanosis, trace edema. Warm, well-perfused. NEURO: Intubated via tracheostomy, holding sedation and antipsychotics. Moves all 4 limbs to stimulation. Remains episodically quite agitated with violent head shaking side to side. Of note, patient was perfectly well oriented and cooperative on admission. Lumbar drain in place and clamped with dressing over surgical site clean and intact. 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 Code(s): M47.16 - Other spondylosis with myelopathy, lumbar region Status: Acute (2) Weakness of lower extremity Code(s): R29.898 - Other symptoms and signs involving the musculoskeletal system Status: Acute (3) COPD (chronic obstructive pulmonary disease) Code(s): J44.9 - Chronic obstructive pulmonary disease, unspecified Status: Chronic (4) History of prostate cancer Code(s): Z85.46 - Personal history of malignant neoplasm of prostate Status: Chronic (5) History of hypertension Code(s): Z86.79 - Personal history of other diseases of the circulatory system Status: Chronic - Assessment and Plan Plan: ASSESSMENT: Acute hypoxemic hypercarbic/hypoxemic respiratory failure Respiratory arrest after receiving Ativan on 10/05/2018 Hypotension now resolved Lumbar cord compression likely secondary to large herniated disc, with lower extremity weakness Right L2/L3 discectomy 10/04/2018 for removal residual disc at right L2/3 s/p L2-5 revision fusion and left L2/3 discectomy on 10/02/18. Hypotension on pressors History of previous lumbar posterior fusion and microdiscectomy by Dr. Hansen Acute on chronic kidney disease Anemia requiring transfusion History of prostate cancer COPD History of hypertension PLAN: NEURO: -MRI showing large herniated disc at L2/3 and flex/ex showing instability at this level. -s/p L2-5 revision fusion and left L2/3 discectomy on 10/02/18. -post-op MRI with significant disc herniation at right L2/3 despite resection, Right L2/L3 discectomy 10/04/2018 - Lumbar drain clamped, in place for CSF leak. Status post lumbar wound revision on 10/14 by neurosurgery -Continue to hold medications for agitation. -Hold all sedation and antipsychotics 10/19 -Test clamp lumbar drain started 10/19 RESP: -Extubated 10/05/18 however became unresponsive and hypoxic after receiving Ativan for agitation -Emergently reintubated and placed on mechanical ventilation -Currently on PRVC/AC -DuoNeb every 6 hours scheduled and as needed -Extubated again 10/07 -Required reintubation 5 hours after extubation due to secretions and hypoxemia. Situation made worse by underlying agitation. -Tracheostomy performed 10/08 -Continue spontaneous breathing trials. CV: -Cardiac decompensation most likely secondary to pulmonary problems, hypoxemia -Gas exchange improving -Fluid balance remains about right now GI: - IV famotidine. Continue tube feeds - Bowel regimen : -Monitor renal function closely. -Strict intake output, monitor and replete elect lytes, follow BUN and creatinine ID: -Sputum culture, stop cefepime due to rash, switched to IV Azactam and vancomycin due to rash on 10/16. -Adjust per ID consult for antibiotic management -10/19 Sputum growing gram-negative rods, one positive blood culture with [facility]. HEME: -Monitor CBC, coags -Ordered 2 units PRBCs to be transfused for hemoglobin 6.2 on 10/21. No overt evidence of blood loss. -Per discussion with patient's daughter on 10/21 he has had extensive workup for anemia with an oncologist including bone marrow, GI workup and was being treated with IV iron however no obvious source of blood loss on previous workup per daughter. ENDO: -Electrolyte replacement per protocol PROPH: -Bilateral lower extremity SCDs. No chemical DVT prophylaxis due to spinal surgery/continue famotidine LINES: -Utilize peripheral IVs, central line as needed -PT evaluate and treat Discussed with patient's daughter at length on 10/21. Await improvement in neurologic status. Off all sedatives currently. Neurology following. All impression: His baseline mental status was quite good prior to this and so far the family has requested ongoing aggressive care. We will continue to try to clean up his lungs and encourage ventilator weaning. Lumbar drain in place, hold transfer to LTAC for now until drain is out.. The gentleman either has pleural effusions or renal failure depending how successfully we have diuresed him. He remains unstable and will likely be a long-term vent weaning problem, plan LTAC transfer when CSF drain is removed. Lumbar drain is clamped we will observe for any signs of leakage through the lumbar dressing.
[2018-10-22 11:39] LABS: Eosinophils,CSF 1 %; Lymphocytes, CSF 44 %; Monocytes,CSF 7 %; Neutrophils,CSF 9 %
--- NOTE | 2018-10-22 11:42 | P.PNNPSY ---
- Behavior Moderate: Impulsive/agitated - Cognitive Severe: Cognitive, Attention/concentration, Confused/orientation, Insight/ awareness, Judgment/problem solving, Memory - Progress Notes/Response to Treatment Contents of Sessions: Adjustment Time with Patient: 30 minutes Premorbid Psychological Status: Premorbid Cognitive, Emotional and Behavioral Status: Stable. 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 The patient has no prior psychiatric difficulties, as described above. Substance abuse history is unremarkable. Behavioral Reactions of Patient and Family/Support System: Stable. The patient s family is experiencing ongoing issues of adjustment given the nature of the injury, and this aspect of recovery will require ongoing monitoring. Emotional/Behavioral Status of Patient and Family/Support System: Stable. Pertinent issues, if appropriate to this patients clinical care, are described in detail above. Maximizing Acute Care Outcome: It is recommended that the patient be monitored for emergent behavioral impulsivity as the medical condition evolves. This patients neuropathological challenges may limit rehabilitation potential going forward, and these challenges will require specialized therapeutic skills to maximize outcome. At this point in the recovery process, the patient does not have cognitive capacity as the patient is unable to understand a situation and its likely consequences, nor is the patient able to manipulate information rationally. Cognitive capacity will be assessed throughout the recovery process. Anticipated Problems: Ongoing areas of concern will include behavioral impulsivity, lack of insight and judgment, which is expected to improve with time and treatment. Suggest continued treatment with current pharmacological approach, unless medically contraindicated. His recent ABS scores reflect improvement as such in terms of his neurobehavioral issues. Treatment Plan: This clinician will continue to follow with you throughout the course of this patients critical care treatment, and I will be available to meet with the patients family/support system to facilitate their understanding and the ongoing care of their family member. The goals of neuropsychological intervention shall be both educational and supportive to the family/support system as is deemed clinically appropriate. Disinhibition Score: 29.75 Aggression Score: 17.50 Lability Score: 14.00 Agitated Behavior Total Score: 23 Impression: 73 year old male with neurocognitive and neurobehavioral issues, possibly ICU delirium. Progress Note Narrative: Day 20. This patient remains encephalopathy and mild to moderately agitated. ABS = 25 (33.3, 17.5, 14). He is off all sedation, and reportedly he has been desatting. Consider follow-up with neurology. I will follow. - Diagnosis (1) Major neurocognitive disorder due to another medical condition with behavioral disturbance Status: Acute
[2018-10-22 11:44] LABS: RBC on Tube 4 133 /mm3
[2018-10-22] MEDS ORDERED: Pharmacy Ordered Lab Info OTHER ONE (12:45)
[2018-10-22] MEDS: Vancomycin Inj 1,500 MG in Sodium Chlor 0.9% Inj 500 ML IV.SIG SCH (13:16)
--- NOTE | 2018-10-22 15:17 | P.PNNS ---
Subjective Interval history: lumbar drain being reclamped today Physical Exam Vital signs: Vital Signs 10/21/18 15:21 10/21/18 16:00 10/21/18 17:00 Temperature 99.7 F H Pulse Rate 119 H 124 H Respiratory Rate 28 H 49 H 54 H Blood Pressure 189/91 H 182/87 H Pulse Oximetry 90 L 92 L 94 L 10/21/18 18:00 10/21/18 19:56 10/21/18 20:00 Temperature 98.5 F Pulse Rate 98 H 95 H Respiratory Rate 52 H 21 Blood Pressure 157/81 H 143/68 H Pulse Oximetry 95 99 100 10/21/18 21:00 10/21/18 22:00 10/21/18 23:00 Temperature Pulse Rate 118 H 98 H 100 H Respiratory Rate Blood Pressure 188/90 H 166/76 H 175/84 H Pulse Oximetry 98 99 92 L 10/21/18 23:33 10/21/18 23:50 10/22/18 00:00 Temperature 98.6 F Pulse Rate 105 H 108 H Respiratory Rate 30 H Blood Pressure 158/70 H 157/66 H Pulse Oximetry 97 99 99 10/22/18 01:00 10/22/18 02:00 10/22/18 03:00 Temperature Pulse Rate 121 H 112 H 118 H Respiratory Rate 35 H 37 H Blood Pressure 174/84 H 169/79 H 168/79 H Pulse Oximetry 100 97 10/22/18 03:59 10/22/18 04:00 10/22/18 05:00 Temperature Pulse Rate 113 H Respiratory Rate 30 H 60 H Blood Pressure 161/76 H Pulse Oximetry 98 99 97 10/22/18 05:57 10/22/18 06:00 10/22/18 07:00 Temperature Pulse Rate 108 H 101 H 103 H Respiratory Rate Blood Pressure 175/91 H 157/72 H 176/74 H Pulse Oximetry 100 100 100 10/22/18 07:19 10/22/18 08:00 10/22/18 09:00 Temperature Pulse Rate 107 H 109 H Respiratory Rate 17 Blood Pressure 191/86 H 148/67 H Pulse Oximetry 100 90 L 97 10/22/18 10:00 10/22/18 11:00 10/22/18 11:37 Temperature 98.6 F 98.6 F Pulse Rate 105 H Respiratory Rate 41 H 26 H 24 Blood Pressure 194/88 H 154/72 H Pulse Oximetry 95 92 L 94 L 10/22/18 12:00 10/22/18 13:00 10/22/18 14:00 Temperature 98.8 F 99.0 F Pulse Rate 97 H 109 H 121 H Respiratory Rate 33 H 36 H 40 H Blood Pressure 167/77 H 194/88 H 179/86 H Pulse Oximetry 94 L 95 89 L 10/22/18 14:29 Temperature Pulse Rate 110 H Respiratory Rate 21 Blood Pressure 147/64 H Pulse Oximetry 89 L Intake & Output 10/21/18 10/22/18 10/22/18 18:59 06:59 18:59 Intake Total 2765 / 2765 990 / 990 600 / 600 Output Total 970 / 970 1215 / 1215 Balance 1795 / 1795 -225 / -225 600 / 600 Weight 97.2 kg Intake: IV 1065 / 1065 100 / 100 600 / 600 LR 1000 mL Inj 1,000 ML @ 100 200 / 200 400 / 400 mls/hr IV.CONT .Q10H [facility] Rx#: [id number] Azactam Inj 2 GM In NS Inj 100 100 / 100 100 / 100 200 / 200 ML @ 200 mls/hr IV.SIG Q8H [facility] Rx#:[id number] NS Inj 250 ML @ 15 mls/hr IV. 250 / 250 SIG ONCE [facility] Rx#:[id number] Vancomycin Inj 1,500 MG In NS 515 / 515 Inj 500 ML @ 250 mls/hr IV.SIG Q24H [facility] Rx#:[id number] Tube Feeding 540 / 540 800 / 800 Tube Irrigant 360 / 360 90 / 90 Intake (Blood Product) Amt 800 / 800 Rbc As-3 Leukoreduced Unit 400 / 400 [id number] Rbc As-3 Leukoreduced Unit 400 / 400 [id number] Output: Urine Amount (Catheter) 850 / 850 1150 / 1150 Indwelling Urethral Catheter 850 / 850 1150 / 1150 Wound Drainage 120 / 120 65 / 65 Posterior Lumbar 120 / 120 65 / 65 Other: Date of Last Bowel Movement 10/21/18 10/22/18 10/22/18 # Bowel Movements 1 4 - Urinary Catheter Management Indwelling Urethral Catheter Cath placed during this visit: yes, but has since been removed by the nurse Reason for continuing: Hourly intake/output Insertion date: 10/22/18 Insertion time: 08:05 Removal date: 10/22/18 Removal time: 08:00 Assessment and Plan - Plan 73yoM po (10/02/18) L2-5 revision fusion and left L2/3 discectomy 10/15/18 pod#1 revision of lumbar wound. Keep Lumbar Drain at 5cm below EAC, goal 160/ 12 hours (or 120/8 hour shift). 10/16/18 CSF starting to show yellow-- sample sent to micro/lab dressing dry. continue lumbar drainage until Friday10/17/18 f/u CSF-- negative thus far. MRI/Brain/C-spine/EEG-negative -- appreciate Neurology consult Lumbar drain until Friday, then clamp, then d/c Friday if dressing continues to be dry 10/18/18 Continue lumbar drainage until tomorrow then clamp and observe back dressing. Appreciate Neurology consult re: difficult to explain neuro exam PEG tube yesterday appreciate ID recs/abx re: rash 10/19: lumbar drain clamped continue monitor lumbar wound 10/20: wound and dressing wet but no obvious drainage seen, lumbar drain reopened and continue draining for now 10/21: wound much fish drier today following reopening of lumbar drain, will cont lumbar drain for now 10/22: reclamp lumbar drain tonight, Dr. Peter to return to reevaluate wound tomorrow NPO tonight per Dr. Hansen in case pt may require surgery tomorrow?
--- NOTE | 2018-10-22 18:29 | P.PNID ---
Subjective Remarks: Patient is a 73-year-old male, initially presented at [facility] for evaluation of acute onset bilateral lower extremity weakness. He apparently woke up on the morning of presentation with numbness and weakness of bilateral lower extremity. He tried to walk but fell on his face. Patient presented to [facility] and CT of the lumbar spine showed a large area of soft attenuation in the ventral epidural space at L2-L3 suspicious for a large disc extrusion with spinal canal stenosis. He was transferred here at [facility] for neurosurgical evaluation. He underwent surgery on October 02 and had L2-L5 posterior spinal fusion, and left L2-L3 microdiscectomy. He was on the vent postoperatively. He had a repeat MRI on October 03 which showed disc herniation, and the patient underwent surgery again and had a right discectomy L2-L3. Patient has had problem with his respiratory status. He was extubated and reintubated 3 times, and subsequently underwent tracheostomy on October 08. On October 09 he was found to have a CSF leak, and underwent placement of a lumbar drain. He continues to have drainage, and he went to surgery again on October 14 and had revision of the lumbar wound, and repair of the leak, and has a lumbar drain again. Infectious disease consultation has been requested to assist with antibiotic management in a patient who has had a CSF leak. Notes reviewed D/W RN Temps better ON the vent Not on sedation Awake, seems to focus some, not consistent in following commands Lumbar drain in place - clamped most of the day Has 2 BC with GPC Last CSF C/S 10/16 - negative Rash - looks papular, stable, looks less prominent RPR negative Sputum - Sten mal, Citrobacter and MSSA Antibiotics: Azactam Vancomycin Levaquin Lines: PIV Past Medical History: Back pain Colonic polyp GERD (gastroesophageal reflux disease) Hypertension Neuropathy Osteoarthritis Prostate carcinoma Endarterectomy Allergies/Adverse Reactions: Allergies No Known Allergies (Unknown, Uncoded 10/27/17 16:04) Objective Vital Signs 10/21/18 19:56 10/21/18 20:00 10/21/18 21:00 Temperature 98.5 F Pulse Rate 95 H 118 H Respiratory Rate 21 Blood Pressure 143/68 H 188/90 H Pulse Oximetry 99 100 98 10/21/18 22:00 10/21/18 23:00 10/21/18 23:33 Temperature Pulse Rate 98 H 100 H Respiratory Rate 30 H Blood Pressure 166/76 H 175/84 H Pulse Oximetry 99 92 L 97 10/21/18 23:50 10/22/18 00:00 10/22/18 01:00 Temperature 98.6 F Pulse Rate 105 H 108 H 121 H Respiratory Rate Blood Pressure 158/70 H 157/66 H 174/84 H Pulse Oximetry 99 99 10/22/18 02:00 10/22/18 03:00 10/22/18 03:59 Temperature Pulse Rate 112 H 118 H Respiratory Rate 35 H 37 H 30 H Blood Pressure 169/79 H 168/79 H Pulse Oximetry 100 97 98 10/22/18 04:00 10/22/18 05:00 10/22/18 05:57 Temperature Pulse Rate 113 H 108 H Respiratory Rate 60 H Blood Pressure 161/76 H 175/91 H Pulse Oximetry 99 97 100 10/22/18 06:00 10/22/18 07:00 10/22/18 07:19 Temperature Pulse Rate 101 H 103 H Respiratory Rate 17 Blood Pressure 157/72 H 176/74 H Pulse Oximetry 100 100 100 10/22/18 08:00 10/22/18 09:00 10/22/18 10:00 Temperature 98.6 F Pulse Rate 107 H 109 H Respiratory Rate 41 H Blood Pressure 191/86 H 148/67 H 194/88 H Pulse Oximetry 90 L 97 95 10/22/18 11:00 10/22/18 11:37 10/22/18 12:00 Temperature 98.6 F 98.8 F Pulse Rate 105 H 97 H Respiratory Rate 26 H 24 33 H Blood Pressure 154/72 H 167/77 H Pulse Oximetry 92 L 94 L 94 L 10/22/18 13:00 10/22/18 14:00 10/22/18 14:29 Temperature 99.0 F Pulse Rate 109 H 121 H 110 H Respiratory Rate 36 H 40 H 21 Blood Pressure 194/88 H 179/86 H 147/64 H Pulse Oximetry 95 89 L 89 L 10/22/18 15:00 10/22/18 16:00 10/22/18 16:28 Temperature 99.3 F 99.1 F Pulse Rate 98 H 108 H Respiratory Rate 23 29 H 23 Blood Pressure 167/74 H 195/92 H Pulse Oximetry 92 L 93 L 94 L 10/22/18 17:00 10/22/18 17:12 10/22/18 18:00 Temperature 99.0 F 98.6 F 98.2 F Pulse Rate 112 H 101 H 112 H Respiratory Rate 26 H 21 24 Blood Pressure 173/77 H 153/71 H 155/71 H Pulse Oximetry 96 97 98 Intake & Output 10/21/18 10/22/18 10/22/18 18:59 06:59 18:59 Intake Total 2765 / 2765 990 / 990 600 / 600 Output Total 970 / 970 1215 / 1215 Balance 1795 / 1795 -225 / -225 600 / 600 Weight 97.2 kg Intake: IV 1065 / 1065 100 / 100 600 / 600 LR 1000 mL Inj 1,000 ML @ 100 200 / 200 400 / 400 mls/hr IV.CONT .Q10H ERIKA Rx#: [id number] Azactam Inj 2 GM In NS Inj 100 100 / 100 100 / 100 200 / 200 ML @ 200 mls/hr IV.SIG Q8H ERIKA Rx#:[id number] NS Inj 250 ML @ 15 mls/hr IV. 250 / 250 SIG ONCE ERIKA Rx#:[id number] Vancomycin Inj 1,500 MG In NS 515 / 515 Inj 500 ML @ 250 mls/hr IV.SIG Q24H ERIKA Rx#:[id number] Tube Feeding 540 / 540 800 / 800 Tube Irrigant 360 / 360 90 / 90 Intake (Blood Product) Amt 800 / 800 Rbc As-3 Leukoreduced Unit 400 / 400 [id number] Rbc As-3 Leukoreduced Unit 400 / 400 [id number] Output: Urine Amount (Catheter) 850 / 850 1150 / 1150 Indwelling Urethral Catheter 850 / 850 1150 / 1150 Wound Drainage 120 / 120 65 / 65 Posterior Lumbar 120 / 120 65 / 65 Other: Date of Last Bowel Movement 10/21/18 10/22/18 10/22/18 # Bowel Movements 1 4 10/19/18 17:30 Sputum - Endotracheal Gram Stain - Final 10/19/18 17:30 Sputum - Endotracheal Sputum Culture - Preliminary Stenotrophomonas maltophilia Citrobacter freundii Staphylococcus aureus 10/22/18 09:20 Lumbar Puncture Gram Stain - Final 10/22/18 09:20 Lumbar Puncture CSF Culture - Pending 10/19/18 18:45 Blood - Peripheral Aerobic Blood Culture - Preliminary Staphylococcus coag negative 10/19/18 18:45 Blood - Peripheral Anaerobic Blood Culture - Final QNS - See aerobic report. 10/22/18 04:10 Blood - Peripheral Aerobic Blood Culture - Pending 10/22/18 04:10 Blood - Peripheral Anaerobic Blood Culture - Pending 10/22/18 04:15 Blood - Peripheral Aerobic Blood Culture - Pending 10/22/18 04:15 Blood - Peripheral Anaerobic Blood Culture - Pending 10/14/18 13:51 Tissue - Other Fungal Smear - Final No fungal elements seen 10/14/18 13:51 Tissue - Other Fungal Culture - Preliminary No growth in 1 week 10/14/18 13:51 Tissue - Other Acid Fast Bacilli Smear - Final No acid fast bacilli seen 10/14/18 13:51 Tissue - Other Mycobacterial Culture - Preliminary No growth in 1 week 10/14/18 13:51 Wound - Back Acid Fast Bacilli Smear - Final No acid fast bacilli seen 10/14/18 13:51 Wound - Back Mycobacterial Culture - Preliminary No growth in 1 week 10/14/18 13:51 Wound - Back Fungal Smear - Final No fungal elements seen 10/14/18 13:51 Wound - Back Fungal Culture - Preliminary No growth in 1 week 10/19/18 18:35 Blood - Peripheral Aerobic Blood Culture - Preliminary Staphylococcus coag negative 10/19/18 18:35 Blood - Peripheral Anaerobic Blood Culture - Final QNS - See aerobic report. 10/19/18 17:30 Clean Catch Urine Urine Culture - Final Ni albicans Lab - Hematology Results 10/21/18 10/21/18 04:35 21:25 WBC 11.9 H RBC 2.14 L Hgb 6.2 L* 9.2 L D Hct 18.7 L* 27.9 L MCV 87.4 MCH 28.9 MCHC 33.0 RDW 18.6 H Plt Count 253 MPV 8.3 Lab - Chemistry Results 10/21/18 10/22/18 04:35 04:10 Sodium 148 H 149 H Potassium 3.5 3.6 Chloride 116 H 117 H Carbon Dioxide 25.6 23.6 Anion Gap 6 8 BUN 53 H 60 H Creatinine 1.24 1.20 Estimated GFR 57 L 59 L Random Glucose 119 H 120 H Calcium 8.6 8.7 Total Bilirubin 0.2 0.3 AST 45 H 40 H ALT 32 32 Alkaline Phosphatase 97 100 Total Protein 5.4 L 5.6 L Albumin 1.4 L 1.5 L Imaging: ITS Impressions Lumbar Spine X-Ray 10/04/18 00:00 CONCLUSION: Lumbar Puncture Fluoroscopy 10/09/18 00:00 CONCLUSION: 1. Uncomplicated lumbar drain placement as above. Lumbar Spine MRI 10/09/18 00:00 CONCLUSION: 1. Significant improvement in the postoperative appearance of the spine with good decompression at L2-3. There is no significant thecal sac impingement. 2. Moderate facet disease is seen in the fused levels stable interval. Thoracic Spine MRI 10/09/18 00:00 CONCLUSION: 1. Significant cervical spinal stenosis, not evaluated on this exam. 2. There is no intrathoracic cord compression. 3. Conus is unremarkable. Cervical Spine MRI 10/16/18 11:58 CONCLUSION: Mild spondylosis and disc disease. No significant canal or foraminal compromise. No explanation for myelopathy. Head MRI 10/16/18 11:58 CONCLUSION: No acute intracranial findings. Chest X-Ray 10/19/18 00:00 CONCLUSION: 1. Interval removal of NGT. 2. Diffuse airspace opacities throughout the right lung with more confluent consolidation in the medial right lower lung zone. 3. Patchy mid to lower left lung zone airspace disease. 4. Overall findings are concerning for aspiration or diffuse infection given history of fever. Physical Exam: GENERAL: Awake, focusing some. on the vent, not in respiratory distress. SKIN: Cool and dry. Has scattered papular rash in his trunk, and his lower extremity. HEAD: Atraumatic. Normocephalic. No temporal wasting, or tenderness. EYES: Edgard conjunctiva. No petechia or hemorrhage. Pupils equal, round and reactive to light. Extraocular movements full and intact. No scleral icterus. No injection or drainage. EARS, NOSE AND THROAT: Nose without bleeding or purulent nasal discharge. Slightly dry oral mucosa NECK: Tracheostomy site looks ok CARDIOVASCULAR: Regular rate and rhythm. No murmurs, rubs or gallops heard RESPIRATORY: Coarse breath sounds bilaterally, decreased at the bases. ABDOMEN: Soft, globular, non-tender, nondistended. Bowel sounds present and normoactive. No guarding. No rebound. No organomegaly. EXTREMITIES: No clubbing, cyanosis. Has bilateral pedal edema. Well perfused and warm. BACK: Dressing in place, lumbar drain in place with blood tinged CSF NEUROLOGICAL: Awake, focusing some PSYCHIATRIC: Unable to assess LINE: No evidence of infection Assessment and Plan - Plan Impression Recurrent CSF leak, S/P surgery x2 for leak, last surgery 10/14. Culture pending. Drug eruption, better, likely from Cefepime Recurrent respiratory failure Encephalopathy New fever (+) BC PNA Recommendation Continue IV Azactam. Continue Vancomycin. Continue Levaquin Follow C/S Follow temps Monitor progress Weaning per [facility] D/W RN
[2018-10-22] MEDS: Divalproex 125 MG Sprinkles Capsule PO SCH (20:51)
[2018-10-23] MEDS: Aztreonam Inj 2 GM in Sodium Chloride 0.9% Inj 100 ML IV.SIG SCH ×2 (04:43→11:56)
[2018-10-23] MEDS: Oral Hygiene Kit OROPHARYNG SCH ×4 (04:44→16:56)
[2018-10-23] MEDS: Methadone 10 MG Tablet PO SCH ×2 (04:44→16:56)
[2018-10-23] MEDS: hydrALAZINE HCl Inj 20 MG/ML Vial IV.PUSH PRN ×3 (05:40→16:56)
[2018-10-23] MEDS: Sodium Chloride 0.9% 2 ML Flush PRN IV.FLUSH (05:40)
--- NOTE | 2018-10-23 07:03 | P.PNNEU ---
Subjective Subjective Comments: not sleep at all last noc Active Medications: Active Medications Acetaminophen (Tylenol) 650 mg PO Q6H PRN PRN Reason: PAIN 1-10 AND/OR FEVER >101F Last Admin: 10/22/18 20:52 Dose: 650 mg Al Hydroxide/Mg Hydroxide (Milk Of Magnbecca Liq) 30 ml PO Q12H PRN PRN Reason: Mild Constipation Last Admin: 10/15/18 06:44 Dose: 30 ml Albuterol (Albuterol Neb (Prn)) 2.5 mg NEB Q2HR NEB PRN PRN Reason: SHORTNESS OF BREATH/WHEEZING Last Admin: 10/22/18 23:52 Dose: 2.5 mg Bisacodyl (Dulcolax Supp) 10 mg RECTAL DAILY PRN PRN Reason: SEVERE CONSITIPATION Last Admin: 10/16/18 00:38 Dose: 10 mg Chlordiazepoxide (Librium) 5 mg PO Q12H [facility] Last Admin: 10/18/18 21:22 Dose: 5 mg Chlorhexidine Gluconate (Peridex 0.12% Oral Kit) 15 ml OROPHARYNG BID@0800, 2000 [facility] Last Admin: 10/22/18 20:51 Dose: 15 ml Clonidine HCl (Catapres) 0.1 mg NG/OG Q6H PRN PRN Reason: SYSTOLIC BP GREATER THAN 160 Diphenhydramine HCl (Benadryl Inj) 25 mg IV.PUSH Q6HR [facility] Last Admin: 10/19/18 05:00 Dose: 25 mg Divalproex Sodium (Depakote Sprinkles) 1,500 mg PO HS [facility] Last Admin: 10/22/18 20:51 Dose: 1,500 mg Famotidine (Pepcid Pf Inj) 10 mg IV.PUSH Q12HR [facility] Last Admin: 10/22/18 20:52 Dose: 10 mg Furosemide (Lasix Inj) 40 mg IV.PUSH BID@0900,1800 [facility] Last Admin: 10/11/18 08:53 Dose: 40 mg Hydralazine HCl (Apresoline Inj) 20 mg IV.PUSH Q2H PRN PRN Reason: SBP > 160 Last Admin: 10/23/18 05:40 Dose: 20 mg Fentanyl (Fentanyl 10 Mcg/Ml Premix Drip) 2,500 mcg in 250 mls @ 5 mls/hr IV.SIG TITRATE PRN; Protocol PRN Reason: Per Protocol Last Titration: 10/17/18 17:22 Dose: Infused Norepinephrine Bitartrate (Levophed-Dextrose 4 Mg/250 Ml Drip) 4 mg in 250 mls @ 7.5 mls/hr IV.SIG TITRATE PRN; Protocol PRN Reason: Per Protocol Last Titration: 10/11/18 07:00 Dose: 0 mcg/min, 0 mls/hr Propofol (Diprivan 1000 Mg/100 Ml Inj) 1,000 mg in 100 mls @ 2.835 mls/hr IV.CONT TITRATE PRN; Protocol PRN Reason: Per Protocol Last Titration: 10/19/18 11:20 Dose: Infused Midazolam HCl (Versed Inj) 100 mg in 100 mls @ 2 mls/hr IV.CONT TITRATE PRN; Protocol PRN Reason: PER PROTOCOL Last Titration: 10/17/18 17:26 Dose: Infused Vancomycin HCl 1,500 mg/ (Sodium Chloride) 515 mls @ 250 mls/hr IV.SIG Q24H [facility] Last Admin: 10/22/18 13:16 Dose: Not Given Dexmedetomidine HCl 800 mcg/ (Sodium Chloride) 100 mls @ 2.29 mls/hr IV.CONT TITRATE PRN; Protocol PRN Reason: Per Protocol Last Titration: 10/19/18 11:20 Dose: Infused Dexmedetomidine HCl 200 mcg/ (Sodium Chloride) 50 mls @ 4.21 mls/hr IV.CONT TITRATE PRN; Protocol PRN Reason: Per Protocol Aztreonam 2 gm/ Sodium (Chloride) 100 mls @ 200 mls/hr IV.SIG Q8H [facility] Last Infusion: 10/23/18 05:31 Dose: Infused Lactated Ringer's (Lr 1000 Ml Inj) 1,000 mls @ 20 mls/hr IV.CONT .Q24H [facility] Last Admin: 10/23/18 04:44 Dose: 20 mls/hr Lactulose (Lactulose Liq) 30 ml PO DAILY PRN PRN Reason: SEVERE CONSITIPATION Last Admin: 10/15/18 19:44 Dose: 30 ml Levofloxacin (Levaquin) 750 mg PO DAILY [facility] Last Admin: 10/22/18 09:52 Dose: 750 mg Lorazepam (Ativan Inj) 0.5 mg IV.PUSH Q6H PRN PRN Reason: SEVERE AGITATION Last Admin: 10/17/18 13:41 Dose: 0.5 mg Methadone HCl (Dolophine) 10 mg PO Q12H [facility] Last Admin: 10/23/18 04:44 Dose: Not Given Metoprolol Tartrate (Lopressor Inj) 5 mg IV.PUSH Q4H PRN PRN Reason: Pulse > 120 Last Admin: 10/22/18 14:25 Dose: 5 mg Metoprolol Tartrate (Lopressor) 50 mg PO BID [facility] Last Admin: 10/22/18 20:52 Dose: 50 mg Miscellaneous (Pill Splitter) 1 each OTHER UNSCH PRN PRN Reason: PILL SPLITTER Miscellaneous Medication () 1 each OROPHARYNG 0000,0400,1200,1600 [facility] Last Admin: 10/23/18 04:44 Dose: 1 each Morphine Sulfate (Morphine Inj) 2 mg IV.PUSH Q4H PRN PRN Reason: 6-10 pain Last Admin: 10/07/18 21:47 Dose: 2 mg Oxycodone HCl (Roxicodone Intensol Liq) 10 mg PO Q6H [facility] Last Admin: 10/19/18 05:00 Dose: 10 mg Pharmacy Profile Note (Vancomycin Consult Pharmacy) 1 each OTHER UNSCH PRN PRN Reason: Pharmacy to dose Quetiapine Fumarate (Seroquel) 150 mg PO BID [facility] Last Admin: 10/18/18 20:02 Dose: 150 mg Risperidone (Risperdal) 0.[address] [facility] Senna/Docusate Sodium (Shazia-Colace) 1 tab PO BID [facility] Last Admin: 10/22/18 20:52 Dose: 1 tab Sennosides (Senokot) 17.2 mg PO Q12H PRN PRN Reason: Moderate Constipation Sodium Chloride (Ns Flush) 2 ml IV.FLUSH BID [facility] Last Admin: 10/22/18 20:52 Dose: 2 ml Sodium Chloride (Ns Flush) 2 ml IV.FLUSH PRN PRN PRN Reason: FLUSH AFTER USING IV ACCESS Last Admin: 10/23/18 05:40 Dose: 2 ml Temazepam (Restoril) [address] [facility] Terbutaline Sulfate (Brethine Inj) 1 mg SQ UNSCH PRN PRN Reason: For Extravasation Ziprasidone (Geodon Inj) 20 mg IM Q12H PRN PRN Reason: SEVERE AGITATION Last Admin: 10/17/18 12:45 Dose: 20 mg Allergies/Adverse Reactions: Allergies Allergy/AdvReac Type Severity Reaction Status Date / Time No Known Allergies Unknown Uncoded 10/27/17 16:04 Physical Exam Vital signs: Vital Signs 10/22/18 07:19 10/22/18 08:00 10/22/18 09:00 Temperature Pulse Rate 107 H 109 H Respiratory Rate 17 Blood Pressure 191/86 H 148/67 H Pulse Oximetry 100 90 L 97 10/22/18 10:00 10/22/18 11:00 10/22/18 11:37 Temperature 98.6 F 98.6 F Pulse Rate 105 H Respiratory Rate 41 H 26 H 24 Blood Pressure 194/88 H 154/72 H Pulse Oximetry 95 92 L 94 L 10/22/18 12:00 10/22/18 13:00 10/22/18 14:00 Temperature 98.8 F 99.0 F Pulse Rate 97 H 109 H 121 H Respiratory Rate 33 H 36 H 40 H Blood Pressure 167/77 H 194/88 H 179/86 H Pulse Oximetry 94 L 95 89 L 10/22/18 14:29 10/22/18 15:00 10/22/18 16:00 Temperature 99.3 F 99.1 F Pulse Rate 110 H 98 H 108 H Respiratory Rate 21 23 29 H Blood Pressure 147/64 H 167/74 H 195/92 H Pulse Oximetry 89 L 92 L 93 L 10/22/18 16:28 10/22/18 17:00 10/22/18 17:12 Temperature 99.0 F 98.6 F Pulse Rate 112 H 101 H Respiratory Rate 23 26 H 21 Blood Pressure 173/77 H 153/71 H Pulse Oximetry 94 L 96 97 10/22/18 18:00 10/22/18 19:00 10/22/18 19:50 Temperature 98.2 F 98.6 F Pulse Rate 112 H 101 H Respiratory Rate 24 17 18 Blood Pressure 155/71 H 161/74 H Pulse Oximetry 98 95 10/22/18 20:00 10/22/18 21:00 10/22/18 21:08 Temperature 98.6 F 98.4 F 98.6 F Pulse Rate 100 H 120 H 105 H Respiratory Rate 18 34 H 22 Blood Pressure 181/85 H 159/74 H 170/81 H Pulse Oximetry 99 94 L 96 10/22/18 22:00 10/22/18 23:00 10/22/18 23:54 Temperature 98.4 F 98.4 F Pulse Rate 82 95 H 97 H Respiratory Rate 25 H 34 H 22 Blood Pressure 178/79 H 186/84 H Pulse Oximetry 98 97 100 10/23/18 00:00 10/23/18 00:51 10/23/18 01:00 Temperature 98.8 F 99.0 F Pulse Rate 97 H 93 H Respiratory Rate 20 16 13 Blood Pressure 160/74 H 166/74 H Pulse Oximetry 100 98 99 10/23/18 02:00 10/23/18 03:00 10/23/18 04:00 Temperature 98.8 F 98.8 F Pulse Rate 96 H 89 81 Respiratory Rate 20 12 15 Blood Pressure 186/81 H 190/82 H Pulse Oximetry 100 100 100 10/23/18 04:15 10/23/18 05:00 10/23/18 05:31 Temperature 98.6 F 98.6 F Pulse Rate 84 90 Respiratory Rate 16 24 22 Blood Pressure 207/92 H 202/91 H Pulse Oximetry 100 100 100 10/23/18 05:45 10/23/18 06:00 Temperature 98.6 F 98.6 F Pulse Rate 93 H 100 H Respiratory Rate 30 H 19 Blood Pressure 191/86 H 172/69 H Pulse Oximetry 100 100 Intake & Output 10/22/18 10/23/18 10/23/18 18:59 06:59 18:59 Intake Total 1380 / 1380 1863 / 1863 Output Total 1135 / 1135 750 / 750 Balance 245 / 245 1113 / 1113 Weight 96.4 kg Intake: IV 600 / 600 1050 / 1050 LR 1000 mL Inj 1,000 ML @ 20 400 / 400 850 / 850 mls/hr IV.CONT .Q24H ERIKA Rx#: [id number] Azactam Inj 2 GM In NS Inj 100 200 / 200 200 / 200 ML @ 200 mls/hr IV.SIG Q8H ERIKA Rx#:[id number] Tube Feeding 540 / 540 663 / 663 Tube Irrigant 240 / 240 60 / 60 Water Bolus Amount 90 / 90 Output: Urine Amount (Catheter) 1100 / 1100 750 / 750 Indwelling Urethral Catheter 1100 / 1100 750 / 750 Wound Drainage 35 / 35 Posterior Lumbar 35 / 35 Other: Date of Last Bowel Movement 10/22/18 10/23/18 # Bowel Movements 3 Narrative: awke and moves and looks at me but not follow commands - Urinary Catheter Management Indwelling Urethral Catheter Cath placed during this visit: yes, but has since been removed by the nurse Reason for continuing: Hourly intake/output Insertion date: 10/22/18 Insertion time: 08:05 Removal date: 10/22/18 Removal time: 08:00 Objective Laboratory Results - last 24 hr 10/22/18 10/22/18 10/22/18 09:20 09:20 11:45 CSF Volume (1) Not Reportable CSF Supernat Color (1) Not Reportable CSF Gross Blood (1) Not Reportable CSF Volume (4) 5.0 CSF Supernat Color (4) Slightly xanthochrom A CSF Gross Blood (4) Trace A CSF WBC (4) 89 H CSF RBC (4) 133 H CSF Neutrophils % 9 CSF Lymphocytes % 44 CSF Monocytes % 7 CSF Eosinophils % 1 CSF Histiocytes 39 CSF Comment CSF Glucose 71 Vancomycin Trough 31.5 H Random Vancomycin 10/23/18 04:19 CSF Volume (1) CSF Supernat Color (1) CSF Gross Blood (1) CSF Volume (4) CSF Supernat Color (4) CSF Gross Blood (4) CSF WBC (4) CSF RBC (4) CSF Neutrophils % CSF Lymphocytes % CSF Monocytes % CSF Eosinophils % CSF Histiocytes CSF Comment CSF Glucose Vancomycin Trough Random Vancomycin 24.2 Microbiology 10/19/18 17:30 Gram Stain - Final Sputum - Endotracheal Sputum Culture - Preliminary Stenotrophomonas maltophilia Citrobacter freundii Staphylococcus aureus 10/22/18 09:20 Gram Stain - Final Lumbar Puncture 10/19/18 18:45 Aerobic Blood Culture - Preliminary Blood - Peripheral Staphylococcus coag negative Anaerobic Blood Culture - Final QNS - See aerobic report. Review/Management - Review/Management Plan: imp mri braina nd c spine neg abg nh3 labs ok eeg neg i think if we keep off sedatives should awaken and do ok 10/18/18 panchal neg csf cx neg labs ok the med team needs to all be on board with holding all sedatives he got fernando patel yest call me when the decision is made to hold sedatives /10/20/18 much better and following commands off sedatives improved neuro i will sign off 10/23/18 icu psychosis i started on sleep regiment keep awake in day and sleep at night keep sleep chart eeg and mri neg i will fu friday /
[2018-10-23] MEDS: levoFLOXacin 750 MG Tablet PO SCH (09:07)
[2018-10-23] MEDS: Chlorhexidine 0.12% Oral Kit 15 ML UDC OROPHARYNG SCH ×2 (09:07→20:26)
[2018-10-23] MEDS: Senna/Docusate Sodium 8.6/50 MG Tablet PO SCH ×2 (09:08→20:26)
[2018-10-23] MEDS: Sodium Chloride 0.9% 2 ML Flush BID IV.FLUSH SCH ×2 (09:08→20:26)
[2018-10-23] MEDS: Famotidine PF Inj 20 MG/2 ML Vial IV.PUSH SCH ×2 (09:08→20:26)
[2018-10-23] MEDS: Metoprolol Tartrate 50 MG Tablet PO SCH ×2 (09:08→20:27)
--- NOTE | 2018-10-23 09:57 | P.PNNS ---
Subjective Interval history: Lumbar drain clamped yesterday - incision dry this AM Tarry stool noted this morning, has been receiving transfusions, sent hemoccult and iron studies Anemia chronically has been worked up outpatient with upper/lower GI and Oncology bone marrow Gets Iron injections every 2 weeks. Normally runs Hgb 8, but here has been running into 6 range. Got a PEG tube / GI 6 days ago. Physical Exam Vital signs: Vital Signs 10/22/18 10:00 10/22/18 11:00 10/22/18 11:37 Temperature 98.6 F 98.6 F Pulse Rate 105 H Respiratory Rate 41 H 26 H 24 Blood Pressure 194/88 H 154/72 H Pulse Oximetry 95 92 L 94 L 10/22/18 12:00 10/22/18 13:00 10/22/18 14:00 Temperature 98.8 F 99.0 F Pulse Rate 97 H 109 H 121 H Respiratory Rate 33 H 36 H 40 H Blood Pressure 167/77 H 194/88 H 179/86 H Pulse Oximetry 94 L 95 89 L 10/22/18 14:29 10/22/18 15:00 10/22/18 16:00 Temperature 99.3 F 99.1 F Pulse Rate 110 H 98 H 108 H Respiratory Rate 21 23 29 H Blood Pressure 147/64 H 167/74 H 195/92 H Pulse Oximetry 89 L 92 L 93 L 10/22/18 16:28 10/22/18 17:00 10/22/18 17:12 Temperature 99.0 F 98.6 F Pulse Rate 112 H 101 H Respiratory Rate 23 26 H 21 Blood Pressure 173/77 H 153/71 H Pulse Oximetry 94 L 96 97 10/22/18 18:00 10/22/18 19:00 10/22/18 19:50 Temperature 98.2 F 98.6 F Pulse Rate 112 H 101 H Respiratory Rate 24 17 18 Blood Pressure 155/71 H 161/74 H Pulse Oximetry 98 95 10/22/18 20:00 10/22/18 21:00 10/22/18 21:08 Temperature 98.6 F 98.4 F 98.6 F Pulse Rate 100 H 120 H 105 H Respiratory Rate 18 34 H 22 Blood Pressure 181/85 H 159/74 H 170/81 H Pulse Oximetry 99 94 L 96 10/22/18 22:00 10/22/18 23:00 10/22/18 23:54 Temperature 98.4 F 98.4 F Pulse Rate 82 95 H 97 H Respiratory Rate 25 H 34 H 22 Blood Pressure 178/79 H 186/84 H Pulse Oximetry 98 97 100 10/23/18 00:00 10/23/18 00:51 10/23/18 01:00 Temperature 98.8 F 99.0 F Pulse Rate 97 H 93 H Respiratory Rate 20 16 13 Blood Pressure 160/74 H 166/74 H Pulse Oximetry 100 98 99 10/23/18 02:00 10/23/18 03:00 10/23/18 04:00 Temperature 98.8 F 98.8 F Pulse Rate 96 H 89 81 Respiratory Rate 20 12 15 Blood Pressure 186/81 H 190/82 H Pulse Oximetry 100 100 100 10/23/18 04:15 10/23/18 05:00 10/23/18 05:31 Temperature 98.6 F 98.6 F Pulse Rate 84 90 Respiratory Rate 16 24 22 Blood Pressure 207/92 H 202/91 H Pulse Oximetry 100 100 100 10/23/18 05:45 10/23/18 06:00 10/23/18 08:51 Temperature 98.6 F 98.6 F Pulse Rate 93 H 100 H Respiratory Rate 30 H 19 12 Blood Pressure 191/86 H 172/69 H Pulse Oximetry 100 100 100 Intake & Output 10/22/18 10/23/18 10/23/18 18:59 06:59 18:59 Intake Total 1380 / 1380 1863 / 1863 Output Total 1135 / 1135 750 / 750 Balance 245 / 245 1113 / 1113 Weight 96.4 kg Intake: IV 600 / 600 1050 / 1050 LR 1000 mL Inj 1,000 ML @ 20 400 / 400 850 / 850 mls/hr IV.CONT .Q24H [facility] Rx#: [id number] Azactam Inj 2 GM In NS Inj 100 200 / 200 200 / 200 ML @ 200 mls/hr IV.SIG Q8H [facility] Rx#:[id number] Tube Feeding 540 / 540 663 / 663 Tube Irrigant 240 / 240 60 / 60 Water Bolus Amount 90 / 90 Output: Urine Amount (Catheter) 1100 / 1100 750 / 750 Indwelling Urethral Catheter 1100 / 1100 750 / 750 Wound Drainage 35 / 35 Posterior Lumbar 35 / 35 Other: Date of Last Bowel Movement 10/22/18 10/23/18 # Bowel Movements 3 Narrative: starting to follow commands crossed arms less agitated - Urinary Catheter Management Indwelling Urethral Catheter Cath placed during this visit: yes, but has since been removed by the nurse Reason for continuing: Hourly intake/output Insertion date: 10/22/18 Insertion time: 08:05 Removal date: 10/22/18 Removal time: 08:00 Assessment and Plan - Plan 73yoM po (10/02/18) L2-5 revision fusion and left L2/3 discectomy 10/15/18 pod#1 revision of lumbar wound. Keep Lumbar Drain at 5cm below EAC, goal 160/ 12 hours (or 120/8 hour shift). 10/16/18 CSF starting to show yellow-- sample sent to micro/lab dressing dry. continue lumbar drainage until Friday10/17/18 f/u CSF-- negative thus far. MRI/Brain/C-spine/EEG-negative -- appreciate Neurology consult Lumbar drain until Friday, then clamp, then d/c Friday if dressing continues to be dry 10/18/18 Continue lumbar drainage until tomorrow then clamp and observe back dressing. Appreciate Neurology consult re: difficult to explain neuro exam PEG tube yesterday appreciate ID recs/abx re: rash 10/19: lumbar drain clamped continue monitor lumbar wound 10/20: wound and dressing wet but no obvious drainage seen, lumbar drain reopened and continue draining for now 10/21: wound much skein yarn drier today following reopening of lumbar drain, will cont lumbar drain for now 10/22: reclamp lumbar drain tonight, Dr. Peter to return to reevaluate wound tomorrow 10/23: incision dry.. will keep clamped GI consult as above given melena today hemoccult sent (iron studies) + daughter gives a GI workup history for chronic anemia including bone marrow and U/LGI that were neg, but these were done before admission, patient receives iron every 2 weeks and normally Hgb 8, here 6 multiple transfusions + PEG tube in last week
[2018-10-23 10:04] LABS: % Iron Saturation 23.6 % (20-50)
--- NOTE | 2018-10-23 10:36 | P.PNNPSY ---
- Behavior Moderate: Impulsive/agitated - Progress Notes/Response to Treatment Contents of Sessions: Adjustment, Level of consciousness Time with Patient: 30 minutes Premorbid Psychological Status: Premorbid Cognitive, Emotional and Behavioral Status: Stable. 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 The patient has no prior psychiatric difficulties, as described above. Substance abuse history is unremarkable. Behavioral Reactions of Patient and Family/Support System: Stable. The patient s family is experiencing ongoing issues of adjustment given the nature of the injury, and this aspect of recovery will require ongoing monitoring. Emotional/Behavioral Status of Patient and Family/Support System: Stable. Pertinent issues, if appropriate to this patients clinical care, are described in detail above. Maximizing Acute Care Outcome: It is recommended that the patient be monitored for emergent behavioral impulsivity as the medical condition evolves. This patients neuropathological challenges may limit rehabilitation potential going forward, and these challenges will require specialized therapeutic skills to maximize outcome. At this point in the recovery process, the patient does not have cognitive capacity as the patient is unable to understand a situation and its likely consequences, nor is the patient able to manipulate information rationally. Cognitive capacity will be assessed throughout the recovery process. Anticipated Problems: Ongoing areas of concern will include behavioral impulsivity, lack of insight and judgment, which is expected to improve with time and treatment. Suggest continued treatment with current pharmacological approach, unless medically contraindicated. His recent ABS scores reflect improvement as such in terms of his neurobehavioral issues. Treatment Plan: This clinician will continue to follow with you throughout the course of this patients critical care treatment, and I will be available to meet with the patients family/support system to facilitate their understanding and the ongoing care of their family member. The goals of neuropsychological intervention shall be both educational and supportive to the family/support system as is deemed clinically appropriate. Disinhibition Score: 29.75 Aggression Score: 17.50 Lability Score: 14.00 Agitated Behavior Total Score: 23 Impression: 73 year old male with neurocognitive and neurobehavioral issues, possibly ICU delirium. Progress Note Narrative: Day 21. The patient continues to be agitated/restless. He is on no sedation. Recent ABS is 23 (29.8,17.5,14). Discussed with Dr. Augustin. I will follow. - Diagnosis (1) Major neurocognitive disorder due to another medical condition with behavioral disturbance Status: Acute
--- NOTE | 2018-10-23 10:53 | P.PNGI ---
Subjective Interval history: Awake and alert-not on sedation Trach to ventilator <Imelda Alvarez - Last Filed: 10/23/18 12:09> Physical Exam Vital signs: Vital Signs 10/22/18 11:00 10/22/18 11:37 10/22/18 12:00 Temperature 98.6 F 98.8 F Pulse Rate 105 H 97 H Respiratory Rate 26 H 24 33 H Blood Pressure 154/72 H 167/77 H Pulse Oximetry 92 L 94 L 94 L 10/22/18 13:00 10/22/18 14:00 10/22/18 14:29 Temperature 99.0 F Pulse Rate 109 H 121 H 110 H Respiratory Rate 36 H 40 H 21 Blood Pressure 194/88 H 179/86 H 147/64 H Pulse Oximetry 95 89 L 89 L 10/22/18 15:00 10/22/18 16:00 10/22/18 16:28 Temperature 99.3 F 99.1 F Pulse Rate 98 H 108 H Respiratory Rate 23 29 H 23 Blood Pressure 167/74 H 195/92 H Pulse Oximetry 92 L 93 L 94 L 10/22/18 17:00 10/22/18 17:12 10/22/18 18:00 Temperature 99.0 F 98.6 F 98.2 F Pulse Rate 112 H 101 H 112 H Respiratory Rate 26 H 21 24 Blood Pressure 173/77 H 153/71 H 155/71 H Pulse Oximetry 96 97 98 10/22/18 19:00 10/22/18 19:50 10/22/18 20:00 Temperature 98.6 F 98.6 F Pulse Rate 101 H 100 H Respiratory Rate 17 18 18 Blood Pressure 161/74 H 181/85 H Pulse Oximetry 95 99 10/22/18 21:00 10/22/18 21:08 10/22/18 22:00 Temperature 98.4 F 98.6 F 98.4 F Pulse Rate 120 H 105 H 82 Respiratory Rate 34 H 22 25 H Blood Pressure 159/74 H 170/81 H 178/79 H Pulse Oximetry 94 L 96 98 10/22/18 23:00 10/22/18 23:54 10/23/18 00:00 Temperature 98.4 F 98.8 F Pulse Rate 95 H 97 H 97 H Respiratory Rate 34 H 22 20 Blood Pressure 186/84 H 160/74 H Pulse Oximetry 97 100 100 10/23/18 00:51 10/23/18 01:00 10/23/18 02:00 Temperature 99.0 F 98.8 F Pulse Rate 93 H 96 H Respiratory Rate 16 13 20 Blood Pressure 166/74 H 186/81 H Pulse Oximetry 98 99 100 10/23/18 03:00 10/23/18 04:00 10/23/18 04:15 Temperature 98.8 F Pulse Rate 89 81 Respiratory Rate 12 15 16 Blood Pressure 190/82 H Pulse Oximetry 100 100 100 10/23/18 05:00 10/23/18 05:31 10/23/18 05:45 Temperature 98.6 F 98.6 F 98.6 F Pulse Rate 84 90 93 H Respiratory Rate 24 22 30 H Blood Pressure 207/92 H 202/91 H 191/86 H Pulse Oximetry 100 100 100 10/23/18 06:00 10/23/18 07:00 10/23/18 07:15 Temperature 98.6 F 98.6 F 98.6 F Pulse Rate 100 H 95 H 91 H Respiratory Rate 19 23 18 Blood Pressure 172/69 H 191/82 H 172/78 H Pulse Oximetry 100 100 100 10/23/18 07:30 10/23/18 07:45 10/23/18 08:00 Temperature 98.6 F 98.6 F Pulse Rate 95 H 92 H 94 H Respiratory Rate 17 17 16 Blood Pressure 169/66 H 173/81 H 166/79 H Pulse Oximetry 100 100 100 10/23/18 08:15 10/23/18 08:30 10/23/18 08:34 Temperature 98.4 F 98.6 F 98.6 F Pulse Rate 102 H 106 H 111 H Respiratory Rate 24 26 H 38 H Blood Pressure 175/82 H 227/97 H 178/81 H Pulse Oximetry 100 100 100 10/23/18 08:45 10/23/18 08:51 10/23/18 09:00 Temperature 98.6 F 98.6 F Pulse Rate 98 H 98 H Respiratory Rate 23 12 21 Blood Pressure 174/81 H 185/86 H Pulse Oximetry 100 100 100 10/23/18 09:15 10/23/18 09:45 10/23/18 10:00 Temperature 98.6 F 98.6 F 98.6 F Pulse Rate 100 H 106 H 96 H Respiratory Rate 24 24 16 Blood Pressure 176/81 H 167/83 H 179/82 H Pulse Oximetry 100 100 100 10/23/18 10:15 10/23/18 10:30 Temperature 98.4 F 98.4 F Pulse Rate 80 77 Respiratory Rate 19 20 Blood Pressure 180/83 H 183/80 H Pulse Oximetry 100 100 Intake & Output 10/22/18 10/23/18 10/23/18 18:59 06:59 18:59 Intake Total 1380 / 1380 1863 / 1863 Output Total 1135 / 1135 750 / 750 Balance 245 / 245 1113 / 1113 Weight 96.4 kg Intake: IV 600 / 600 1050 / 1050 LR 1000 mL Inj 1,000 ML @ 20 400 / 400 850 / 850 mls/hr IV.CONT .Q24H [facility] Rx#: [id number] Azactam Inj 2 GM In NS Inj 100 200 / 200 200 / 200 ML @ 200 mls/hr IV.SIG Q8H [facility] Rx#:[id number] Tube Feeding 540 / 540 663 / 663 Tube Irrigant 240 / 240 60 / 60 Water Bolus Amount 90 / 90 Output: Urine Amount (Catheter) 1100 / 1100 750 / 750 Indwelling Urethral Catheter 1100 / 1100 750 / 750 Wound Drainage 35 / 35 Posterior Lumbar 35 / 35 Other: Date of Last Bowel Movement 10/22/18 10/23/18 # Bowel Movements 3 - Constitutional chronically ill appearing Comments: Trach to ventilator - Routine HEENT Exam Head: Present: normocephalic - Routine Respiratory Exam Present: patient mechanically ventilated - Routine Cardiovascular Exam Present: RRR - Routine Abdominal Exam Present: soft, normoactive bowel sounds. Absent: tenderness, distended, guarding, firm Comments: Gastrostomy tube present and clamped - Routine Skin Exam Present: dry, warm - Routine Neurological Exam Present: alert - Urinary Catheter Management Indwelling Urethral Catheter Cath placed during this visit: yes, but has since been removed by the nurse Reason for continuing: Hourly intake/output Insertion date: 10/22/18 Insertion time: 08:05 Removal date: 10/22/18 Removal time: 08:00 <Imelda Alvarez - Last Filed: 10/23/18 12:09> Vital signs: Vital Signs 10/22/18 13:00 10/22/18 14:00 10/22/18 14:29 Temperature 99.0 F Pulse Rate 109 H 121 H 110 H Respiratory Rate 36 H 40 H 21 Blood Pressure 194/88 H 179/86 H 147/64 H Pulse Oximetry 95 89 L 89 L 10/22/18 15:00 10/22/18 16:00 10/22/18 16:28 Temperature 99.3 F 99.1 F Pulse Rate 98 H 108 H Respiratory Rate 23 29 H 23 Blood Pressure 167/74 H 195/92 H Pulse Oximetry 92 L 93 L 94 L 10/22/18 17:00 10/22/18 17:12 10/22/18 18:00 Temperature 99.0 F 98.6 F 98.2 F Pulse Rate 112 H 101 H 112 H Respiratory Rate 26 H 21 24 Blood Pressure 173/77 H 153/71 H 155/71 H Pulse Oximetry 96 97 98 10/22/18 19:00 10/22/18 19:50 10/22/18 20:00 Temperature 98.6 F 98.6 F Pulse Rate 101 H 100 H Respiratory Rate 17 18 18 Blood Pressure 161/74 H 181/85 H Pulse Oximetry 95 99 10/22/18 21:00 10/22/18 21:08 10/22/18 22:00 Temperature 98.4 F 98.6 F 98.4 F Pulse Rate 120 H 105 H 82 Respiratory Rate 34 H 22 25 H Blood Pressure 159/74 H 170/81 H 178/79 H Pulse Oximetry 94 L 96 98 10/22/18 23:00 10/22/18 23:54 10/23/18 00:00 Temperature 98.4 F 98.8 F Pulse Rate 95 H 97 H 97 H Respiratory Rate 34 H 22 20 Blood Pressure 186/84 H 160/74 H Pulse Oximetry 97 100 100 10/23/18 00:51 10/23/18 01:00 10/23/18 02:00 Temperature 99.0 F 98.8 F Pulse Rate 93 H 96 H Respiratory Rate 16 13 20 Blood Pressure 166/74 H 186/81 H Pulse Oximetry 98 99 100 10/23/18 03:00 10/23/18 04:00 10/23/18 04:15 Temperature 98.8 F Pulse Rate 89 81 Respiratory Rate 12 15 16 Blood Pressure 190/82 H Pulse Oximetry 100 100 100 10/23/18 05:00 10/23/18 05:31 10/23/18 05:45 Temperature 98.6 F 98.6 F 98.6 F Pulse Rate 84 90 93 H Respiratory Rate 24 22 30 H Blood Pressure 207/92 H 202/91 H 191/86 H Pulse Oximetry 100 100 100 10/23/18 06:00 10/23/18 07:00 10/23/18 07:15 Temperature 98.6 F 98.6 F 98.6 F Pulse Rate 100 H 95 H 91 H Respiratory Rate 19 23 18 Blood Pressure 172/69 H 191/82 H 172/78 H Pulse Oximetry 100 100 100 10/23/18 07:30 10/23/18 07:45 10/23/18 08:00 Temperature 98.6 F 98.6 F Pulse Rate 95 H 92 H 94 H Respiratory Rate 17 17 16 Blood Pressure 169/66 H 173/81 H 166/79 H Pulse Oximetry 100 100 100 10/23/18 08:15 10/23/18 08:30 10/23/18 08:34 Temperature 98.4 F 98.6 F 98.6 F Pulse Rate 102 H 106 H 111 H Respiratory Rate 24 26 H 38 H Blood Pressure 175/82 H 227/97 H 178/81 H Pulse Oximetry 100 100 100 10/23/18 08:45 10/23/18 08:51 10/23/18 09:00 Temperature 98.6 F 98.6 F Pulse Rate 98 H 98 H Respiratory Rate 23 12 21 Blood Pressure 174/81 H 185/86 H Pulse Oximetry 100 100 100 10/23/18 09:15 10/23/18 09:45 10/23/18 10:00 Temperature 98.6 F 98.6 F 98.6 F Pulse Rate 100 H 106 H 96 H Respiratory Rate 24 24 16 Blood Pressure 176/81 H 167/83 H 179/82 H Pulse Oximetry 100 100 100 10/23/18 10:15 10/23/18 10:30 Temperature 98.4 F 98.4 F Pulse Rate 80 77 Respiratory Rate 19 20 Blood Pressure 180/83 H 183/80 H Pulse Oximetry 100 100 Intake & Output 10/22/18 10/23/18 10/23/18 18:59 06:59 18:59 Intake Total 1380 / 1380 1863 / 1863 Output Total 1135 / 1135 750 / 750 Balance 245 / 245 1113 / 1113 Weight 96.4 kg Intake: IV 600 / 600 1050 / 1050 LR 1000 mL Inj 1,000 ML @ 20 400 / 400 850 / 850 mls/hr IV.CONT .Q24H [facility] Rx#: [id number] Azactam Inj 2 GM In NS Inj 100 200 / 200 200 / 200 ML @ 200 mls/hr IV.SIG Q8H [facility] Rx#:[id number] Tube Feeding 540 / 540 663 / 663 Tube Irrigant 240 / 240 60 / 60 Water Bolus Amount 90 / 90 Output: Urine Amount (Catheter) 1100 / 1100 750 / 750 Indwelling Urethral Catheter 1100 / 1100 750 / 750 Wound Drainage 35 / 35 Posterior Lumbar 35 / 35 Other: Date of Last Bowel Movement 10/22/18 10/23/18 # Bowel Movements 3 - Urinary Catheter Management Indwelling Urethral Catheter Cath placed during this visit: no <Roxanna Rubin - Last Filed: 10/23/18 12:49> Results - Labs CBC & Chem 7: 10/21/18 21:25 10/22/18 04:10 Laboratory Results - last 24 hr 10/22/18 10/22/18 10/22/18 09:20 09:20 11:45 Iron TIBC % Saturation CSF Volume (1) Not Reportable CSF Supernat Color (1) Not Reportable CSF Gross Blood (1) Not Reportable CSF Volume (4) 5.0 CSF Supernat Color (4) Slightly xanthochrom A CSF Gross Blood (4) Trace A CSF WBC (4) 89 H CSF RBC (4) 133 H CSF Neutrophils % 9 CSF Lymphocytes % 44 CSF Monocytes % 7 CSF Eosinophils % 1 CSF Histiocytes 39 CSF Comment CSF Glucose 71 Vancomycin Trough 31.5 H Random Vancomycin 10/23/18 10/23/18 04:19 04:19 Iron 43 L TIBC 182 L % Saturation 23.6 CSF Volume (1) CSF Supernat Color (1) CSF Gross Blood (1) CSF Volume (4) CSF Supernat Color (4) CSF Gross Blood (4) CSF WBC (4) CSF RBC (4) CSF Neutrophils % CSF Lymphocytes % CSF Monocytes % CSF Eosinophils % CSF Histiocytes CSF Comment CSF Glucose Vancomycin Trough Random Vancomycin 24.2 Microbiology 10/22/18 09:20 Lumbar Puncture Gram Stain - Final 10/22/18 09:20 Lumbar Puncture CSF Culture - Preliminary No growth in 24 hours 10/19/18 17:30 Sputum - Endotracheal Gram Stain - Final 10/19/18 17:30 Sputum - Endotracheal Sputum Culture - Preliminary Stenotrophomonas maltophilia Citrobacter freundii Staphylococcus aureus 10/19/18 18:45 Blood - Peripheral Aerobic Blood Culture - Preliminary Staphylococcus coag negative 10/19/18 18:45 Blood - Peripheral Anaerobic Blood Culture - Final QNS - See aerobic report. <Imelda Alvarez - Last Filed: 10/23/18 12:09> - Labs CBC & Chem 7: 10/21/18 21:25 10/22/18 04:10 Laboratory Results - last 24 hr 10/23/18 10/23/18 04:19 04:19 Iron 43 L TIBC 182 L % Saturation 23.6 Random Vancomycin 24.2 Microbiology 10/19/18 17:30 Sputum - Endotracheal Gram Stain - Final 10/19/18 17:30 Sputum - Endotracheal Sputum Culture - Final Stenotrophomonas maltophilia Citrobacter freundii Staphylococcus aureus 10/22/18 04:10 Blood - Peripheral Aerobic Blood Culture - Preliminary No growth in 1 day 10/22/18 04:10 Blood - Peripheral Anaerobic Blood Culture - Preliminary No growth in 1 day 10/22/18 04:15 Blood - Peripheral Aerobic Blood Culture - Preliminary No growth in 1 day 10/22/18 04:15 Blood - Peripheral Anaerobic Blood Culture - Preliminary No growth in 1 day 10/19/18 18:35 Blood - Peripheral Aerobic Blood Culture - Final Staphylococcus warneri 10/19/18 18:35 Blood - Peripheral Anaerobic Blood Culture - Final QNS - See aerobic report. 10/22/18 09:20 Lumbar Puncture Gram Stain - Final 10/22/18 09:20 Lumbar Puncture CSF Culture - Preliminary No growth in 24 hours 10/19/18 18:45 Blood - Peripheral Aerobic Blood Culture - Preliminary Staphylococcus coag negative 10/19/18 18:45 Blood - Peripheral Anaerobic Blood Culture - Final QNS - See aerobic report. <Roxanna Rubin - Last Filed: 10/23/18 12:49> Assessment and Plan (1) PEG (percutaneous endoscopic gastrostomy) adjustment/replacement/removal Status: Acute Code(s): Z43.1 - Encounter for attention to gastrostomy - Plan Patient is a 73-year-old male with past medical history significant for hypertension, COPD, prostate carcinoma and lumbar laminectomy. Surgical history includes endarterectomy. Patient was transferred from [facility] to [facility] for evaluation of acute onset of bilateral lower extremity weakness. CT of the lumbar spine revealed attenuation in the ventral epidural space L2-L3 suspicious for large disc extrusion with spinal canal stenosis. Patient has tracheostomy and is ventilated. Patient has lumbar drain present draining cerebrospinal fluid. NG tube present and clamped at this time. Our service has been consulted to evaluate patient for PEG tube placement. PEG tube placement -Patient with past medical history of lumbar laminectomy presented to the emergency department with reported numbness and weakness of bilateral lower extremities. CT lumbar spine shows moderate bilateral neuro foraminal stenosis. 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 Nursing reports patient had multiple bowel movements overnight. Specimen noted to be black and tarry. 10/21/2018 hemoglobin 6.2 hematocrit 18.7 patient then transfused 2 units packed RBCs Post-transfusion 10/21/2018 hemoglobin 9.2 hematocrit 27.9 platelet count 253 No hematemesis or bright red bleeding noted or reported. Recent EGD negative-possibly from PEG tube site Plan -N.p.o. -Check residuals as ordered per protocol -Monitor for bleeding -Monitor labs hemoglobin and hematocrit -CBC today -PPI -Supportive care -Further recommendations to follow This patient has been seen by myself and Dr. Rubin and this note is written on his behalf - Attending Attestation Dr. Rubin <Imelda Alvarez - Last Filed: 10/23/18 12:09> (1) PEG (percutaneous endoscopic gastrostomy) adjustment/replacement/removal Status: Acute Code(s): Z43.1 - Encounter for attention to gastrostomy - Attending Attestation Agree with the plan as above. Pt had recent negative EGD during PEG placement. Will adjust the stump of the tube, keep tube under negative intermittent suction. Frequent HH and blood transfusion as needed. Will follow up with you. <Roxanna Rubin - Last Filed: 10/23/18 12:49>
[2018-10-23] MEDS: Pantoprazole Inj 40 MG Vial IV.PUSH SCH (11:54)
[2018-10-23 13:20] LABS: Baso # (Auto) 0.1 th/mm3 (0.0-0.2); Baso % (Auto) 1.1 % (0.0-2.0); Eos # (Auto) 0.1 th/mm3 (0.0-0.4); Eos % (Auto) 1.2 % (0.0-4.0); Hematocrit 21.6 % (39.0-51.0); Hemoglobin 7.4 gm/dL (13.0-17.0); Lymph # (Auto) 0.4 th/mm3 (1.0-4.8); Lymph % (Auto) 5.9 % (9.0-44.0); Mean Corpuscular HGB Conc 34.4 % (32.0-36.0); Mean Corpuscular Hemoglobin 29.9 pg (27.0-34.0); Mean Corpuscular Volume 86.9 fL (80.0-100.0); Mean Platelet Volume 8.4 fL (7.0-11.0); Mono # (Auto) 0.7 th/mm3 (0.0-0.9); Mono % (Auto) 9.1 % (0.0-8.0); Neut # (Auto) 6.2 th/mm3 (1.8-7.7); Neut % (Auto) 82.7 % (16.0-70.0); Platelet Count 243 th/mm3 (150-450); Red Blood Count 2.48 mil/mm3 (4.50-5.90); Red Cell Distribution Width 17.4 % (11.6-17.2); White Blood Count 7.5 th/mm3 (4.0-11.0)
[2018-10-23] MEDS ORDERED: Sodium Chlor 0.9% Inj 250 ML IV.SIG SCH (14:00)
--- NOTE | 2018-10-23 14:03 | P.PNCC ---
Subjective Subjective Remarks/Hospital Course: Patient is a 73-year-old male with past medical history significant for hypertension, COPD, Prostate carcinoma, history of previous lumbar laminectomy who came to the [place] emergency department as a transfer from transfer from [facility]. He was accepted by neurosurgery Dr. Peter for acute onset bilateral lower extremity weakness. Patient states that he woke up this morning around 6 AM with numbness and weakness of bilateral lower extremity. On attempt to walk he fell on his face due to weakness. Patient states that the strength got slight better since then. CT scan of the lumbar spine large area of soft attenuation attenuation in the ventral epidural space L2-L3 level suspicious for large disc extrusion with spinal canal stenosis with differential diagnosis involving hemorrhage, there is also at least moderate bilateral neural foraminal stenosis. I evaluate the patient in the ED. He complains of weakness more on the left leg which he is unable to lift. There is generalized numbness but he is able to feel my touch. Critical care was requested to admit the patient to the ICU. Discussed with Dr. Mittal ED and Dr. Peter neurosurgery. A stat MRI of the lumbar spine had been ordered. 10/03: Remains intubated sedated. Remains on Levophed at 10 mcg/min to maintain map above 70. Patient is s/p L2 to L5 posterior spinal fusion, Left L2 /3 microdiscectomy. (MRI showed large herniated disc at L2/3 and flex/ex showing instability at this level). On sedation hold patient is moving all 4 extremities. Hb 8.3 will transfuse 1 unit PRBC due to hypotension 10/04: Remains intubated sedated remains on 8 mcg/min of Levophed to maintain map above 75. Transfusing 1 unit PRBC for hemoglobin 7.4. post-op MRI with significant disc herniation at L2/3. Scheduled for surgery today with Dr. Peter 10/05: Patient underwent surgery on 10/04/2018 for removal residual disc at L2/ 3 right side based on post-op MRI. (s/p L2-5 revision fusion and left L2/3 discectomy on 10/02/18). Today patient's hypoxemia had improved, he was awake but on lightening sedation was very agitated so after a short CPAP trial patient was extubated. Shortly after extubation patient became very agitated requiring four-point restraints and physically nurses having to restrain him. 2 mg IV Ativan was given following which patient became partially responsive with obstructive airway sounds. Shortly became hypoxemic desaturated, became bradycardic in 40s and systolic blood pressure does drop to mid 40s. I was emergently called to the bedside I started bag and mask ventilation immediately. Half ampule of epinephrine was post IV. His heart rate in systolic blood pressure improved with bag and mask ventilation and epinephrine push however he remained unresponsive. Emergently intubated and placed on mechanical ventilation. Once more responsive will start on sedation with Versed. Start Levophed to maintain map above 65. Postintubation chest x-ray is pending. 10/06: Remains intubated heavily sedated for vent synchrony. Patient gets very agitated on holding sedation. We will start Precedex to facilitate vent weaning. Hemoglobin is 7.1, 1 unit of PRBC followed by IV Lasix ordered. 10/07: Agitated. TVs > 1.0 liter spontaneous. Extubated. Patient required reintubation about 5 hours later due to hypoxemia. 10/08: Intubated for the third time last evening. He is unable to tolerate extubation due to a combination of underlying lung disease and severe agitation. If the family wishes to proceed he will require tracheostomy for safe weaning from the ventilator. His baseline mental status is apparently pretty close to normal. 10/09: Tracheostomy placed yesterday. Large amounts of white thick secretions encountered. Chest x-ray continues with a pattern of pulmonary edema. We will continue aggressive twice daily diuretic therapy. Ostensibly plan is to transfer to [facility] at the beginning of next week. One family member is not on board with that yet however. 10/10: Lumbar drain has been placed. Continue spontaneous breathing trials through tracheostomy. Continue discussions with family about transfer to LTAC for long-term weaning. No evidence of infection. 10/11: Effective diuresis but now developing a mild prerenal azotemia. Will hold off for a while and gently hydrate. Now the tracheostomy is performed there is not quite urgency to desiccate his lungs. Hopefully we can work toward a cyst transferred to [facility] after lumbar drain discontinued. 10/12: Following tracheostomy we will continue with attempts at ventilator weaning. Patient has a lumbar drain in place in an attempt to stop a lumbar region wound CSF leak. [facility] will take this patient for long-term weaning once lumbar drain is out. Gentle hydration continues until such time as prerenal azotemia is attenuated. Continue enteral nutrition. 10/13: Remains on mechanical ventilation via tracheostomy. Still on significant sedation due to agitation issues. Lumbar drain continues to drain. Possible surgery tomorrow. 10/14: Remains sedated, on mechanical ventilation via tracheostomy. Scheduled for surgery today for CSF leak lumbar region. 10/15: Remains sedated on mechanical ventilation via tracheostomy. Status post revision of lumbar wound on 10/14 by neurosurgery. Lumbar drain in place and drained 120 cc since yesterday. 10/16: Remains on mechanical ventilation via tracheostomy. Still dealing with agitation on lightening sedation. On Precedex/fentanyl. Received 1 dose of Geodon last night. Also getting as needed Ativan and Seroquel. 10/17: We continue to deal with bouts of agitation which hamper her ability to wean him from the ventilator. Gas exchange remains acceptable. He has required 1 unit of blood transfusion. 10/18: Plan is to clamp drain friday and remove mid-week if lumbar dressing stays dry. Tolerating CPAP today we will try to progress to T piece. 10/19: Patient still intermittently agitated. Per neurology service request we will stop all sedation and analgesia aside from methadone. 10/20: We are unsuccessful getting past spontaneous breathing trials. Still not strong enough to tolerate T-piece. 10/21: Remains encephalopathic, on mechanical ventilation via tracheostomy. Failed CPAP trial this morning. Hemoglobin 6.2. Ordered 2 units PRBCs to be transfused. No overt evidence of blood loss. Temperature 100.7 this morning. Lumbar drain in place and put out 120 cc CSF overnight. Off all sedatives. Tolerating tube feeds via PEG. 10/22: Remains encephalopathic. Has spontaneous eye opening however not following commands. Lumbar drain remains in place. 10/23: Awake, follows occasional commands. Remains on mechanical ventilation via tracheostomy. Melena this morning. Hemoglobin dropped to 7.4. No hypotension. GI reconsulted for evaluation for GI bleed. 1 unit PRBCs being transfused. Dr. Hamilton from neurology reevaluated patient and is initiating a sleep regimen. Objective Vital Signs / I&O: Vital Signs 10/22/18 14:00 10/22/18 14:29 10/22/18 15:00 Temperature 99.3 F Pulse Rate 121 H 110 H 98 H Respiratory Rate 40 H 21 23 Blood Pressure 179/86 H 147/64 H 167/74 H Pulse Oximetry 89 L 89 L 92 L 10/22/18 16:00 10/22/18 16:28 10/22/18 17:00 Temperature 99.1 F 99.0 F Pulse Rate 108 H 112 H Respiratory Rate 29 H 23 26 H Blood Pressure 195/92 H 173/77 H Pulse Oximetry 93 L 94 L 96 10/22/18 17:12 10/22/18 18:00 10/22/18 19:00 Temperature 98.6 F 98.2 F 98.6 F Pulse Rate 101 H 112 H 101 H Respiratory Rate 21 24 17 Blood Pressure 153/71 H 155/71 H 161/74 H Pulse Oximetry 97 98 95 10/22/18 19:50 10/22/18 20:00 10/22/18 21:00 Temperature 98.6 F 98.4 F Pulse Rate 100 H 120 H Respiratory Rate 18 18 34 H Blood Pressure 181/85 H 159/74 H Pulse Oximetry 99 94 L 10/22/18 21:08 10/22/18 22:00 10/22/18 23:00 Temperature 98.6 F 98.4 F 98.4 F Pulse Rate 105 H 82 95 H Respiratory Rate 22 25 H 34 H Blood Pressure 170/81 H 178/79 H 186/84 H Pulse Oximetry 96 98 97 10/22/18 23:54 10/23/18 00:00 10/23/18 00:51 Temperature 98.8 F Pulse Rate 97 H 97 H Respiratory Rate 22 20 16 Blood Pressure 160/74 H Pulse Oximetry 100 100 98 10/23/18 01:00 10/23/18 02:00 10/23/18 03:00 Temperature 99.0 F 98.8 F 98.8 F Pulse Rate 93 H 96 H 89 Respiratory Rate 13 20 12 Blood Pressure 166/74 H 186/81 H 190/82 H Pulse Oximetry 99 100 100 10/23/18 04:00 10/23/18 04:15 10/23/18 05:00 Temperature 98.6 F Pulse Rate 81 84 Respiratory Rate 15 16 24 Blood Pressure 207/92 H Pulse Oximetry 100 100 100 10/23/18 05:31 10/23/18 05:45 10/23/18 06:00 Temperature 98.6 F 98.6 F 98.6 F Pulse Rate 90 93 H 100 H Respiratory Rate 22 30 H 19 Blood Pressure 202/91 H 191/86 H 172/69 H Pulse Oximetry 100 100 100 10/23/18 07:00 10/23/18 07:15 10/23/18 07:30 Temperature 98.6 F 98.6 F 98.6 F Pulse Rate 95 H 91 H 95 H Respiratory Rate 23 18 17 Blood Pressure 191/82 H 172/78 H 169/66 H Pulse Oximetry 100 100 100 10/23/18 07:45 10/23/18 08:00 10/23/18 08:15 Temperature 98.6 F 98.4 F Pulse Rate 92 H 94 H 102 H Respiratory Rate 17 16 24 Blood Pressure 173/81 H 166/79 H 175/82 H Pulse Oximetry 100 100 100 10/23/18 08:30 10/23/18 08:34 10/23/18 08:45 Temperature 98.6 F 98.6 F 98.6 F Pulse Rate 106 H 111 H 98 H Respiratory Rate 26 H 38 H 23 Blood Pressure 227/97 H 178/81 H 174/81 H Pulse Oximetry 100 100 100 10/23/18 08:51 10/23/18 09:00 10/23/18 09:15 Temperature 98.6 F 98.6 F Pulse Rate 98 H 100 H Respiratory Rate 12 21 24 Blood Pressure 185/86 H 176/81 H Pulse Oximetry 100 100 100 10/23/18 09:45 10/23/18 10:00 10/23/18 10:15 Temperature 98.6 F 98.6 F 98.4 F Pulse Rate 106 H 96 H 80 Respiratory Rate 24 16 19 Blood Pressure 167/83 H 179/82 H 180/83 H Pulse Oximetry 100 100 100 10/23/18 10:30 Temperature 98.4 F Pulse Rate 77 Respiratory Rate 20 Blood Pressure 183/80 H Pulse Oximetry 100 Intake & Output 10/22/18 10/23/18 10/23/18 18:59 06:59 18:59 Intake Total 1380 / 1380 1863 / 1863 100 / 100 Output Total 1135 / 1135 750 / 750 Balance 245 / 245 1113 / 1113 100 / 100 Weight 96.4 kg Intake: IV 600 / 600 1050 / 1050 100 / 100 LR 1000 mL Inj 1,000 ML @ 20 400 / 400 850 / 850 mls/hr IV.CONT .Q24H [facility] Rx#: [id number] Azactam Inj 2 GM In NS Inj 100 200 / 200 200 / 200 100 / 100 ML @ 200 mls/hr IV.SIG Q8H [facility] Rx#:[id number] Tube Feeding 540 / 540 663 / 663 Tube Irrigant 240 / 240 60 / 60 Water Bolus Amount 90 / 90 Output: Urine Amount (Catheter) 1100 / 1100 750 / 750 Indwelling Urethral Catheter 1100 / 1100 750 / 750 Wound Drainage 35 / 35 Posterior Lumbar 35 / 35 Other: Date of Last Bowel Movement 10/22/18 10/23/18 # Bowel Movements 3 Result Diagrams: 10/23/18 12:35 10/22/18 04:10 Objective Remarks: GENERAL: Elderly gentleman, ongoing vent weaning trials. Holding sedation. SKIN: warm/dry. HEAD: Normocephalic. Atraumatic EYES: No injection or drainage. No conjunctival icterus or injection NECK: Supple. Tracheostomy in place, site is clean and dry CARDIOVASCULAR: S1-S2 normal, no murmurs. No JVD RESPIRATORY: Good bilateral air movement, few scattered rhonchi persist, no wheezes. GASTROINTESTINAL: Abdomen soft, non-tender, nondistended. Bowel sounds present no guarding. MUSCULOSKELETAL: No cyanosis, trace edema. Warm, well-perfused. NEURO: Intubated via tracheostomy, holding sedation and antipsychotics. Moves all 4 limbs to stimulation. Remains episodically quite agitated with violent head shaking side to side. Of note, patient was perfectly well oriented and cooperative on admission. Lumbar drain in place and clamped with dressing over surgical site clean and intact. 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 Code(s): M47.16 - Other spondylosis with myelopathy, lumbar region Status: Acute (2) Weakness of lower extremity Code(s): R29.898 - Other symptoms and signs involving the musculoskeletal system Status: Acute (3) COPD (chronic obstructive pulmonary disease) Code(s): J44.9 - Chronic obstructive pulmonary disease, unspecified Status: Chronic (4) History of prostate cancer Code(s): Z85.46 - Personal history of malignant neoplasm of prostate Status: Chronic (5) History of hypertension Code(s): Z86.79 - Personal history of other diseases of the circulatory system Status: Chronic - Assessment and Plan Plan: ASSESSMENT: Acute hypoxemic hypercarbic/hypoxemic respiratory failure Respiratory arrest after receiving Ativan on 10/05/2018 Hypotension now resolved Lumbar cord compression likely secondary to large herniated disc, with lower extremity weakness Right L2/L3 discectomy 10/04/2018 for removal residual disc at right L2/3 s/p L2-5 revision fusion and left L2/3 discectomy on 10/02/18. Hypotension on pressors History of previous lumbar posterior fusion and microdiscectomy by Dr. Hansen Acute on chronic kidney disease Anemia requiring transfusion Suspected GI bleed History of prostate cancer COPD History of hypertension PLAN: NEURO: -MRI showing large herniated disc at L2/3 and flex/ex showing instability at this level. -s/p L2-5 revision fusion and left L2/3 discectomy on 10/02/18. -post-op MRI with significant disc herniation at right L2/3 despite resection, Right L2/L3 discectomy 10/04/2018 - Lumbar drain clamped, in place for CSF leak. Status post lumbar wound revision on 10/14 by neurosurgery -Continue to hold medications for agitation. -Hold all sedation and antipsychotics 10/19 -Test clamp lumbar drain started 10/19 -Sleep regimen being initiated by Dr. Hamilton RESP: -Extubated 10/05/18 however became unresponsive and hypoxic after receiving Ativan for agitation -Emergently reintubated and placed on mechanical ventilation -Currently on PRVC/AC -DuoNeb every 6 hours scheduled and as needed -Extubated again 10/07 -Required reintubation 5 hours after extubation due to secretions and hypoxemia. Situation made worse by underlying agitation. -Tracheostomy performed 10/08 -Continue spontaneous breathing trials. CV: -Cardiac decompensation most likely secondary to pulmonary problems, hypoxemia -Gas exchange improving -Fluid balance remains about right now GI: - IV famotidine. Hold tube feeds in view of melena for GI evaluation status post PEG. -May require colonoscopy. - Bowel regimen : -Monitor renal function closely. -Strict intake output, monitor and replete elect lytes, follow BUN and creatinine ID: -Sputum culture, stop cefepime due to rash, switched to IV Azactam and vancomycin due to rash on 10/16. -Adjust per ID consult for antibiotic management -10/19 Sputum growing gram-negative rods, one positive blood culture with [facility]. HEME: -Monitor CBC, coags -Ordered 2 units PRBCs to be transfused for hemoglobin 6.2 on 10/21. Melena noted on 10/23 with drop in hemoglobin. 1 unit PRBCs ordered to be transfused on 10/23 -Per discussion with patient's daughter on 10/21 he has had extensive workup for anemia with an oncologist including bone marrow, GI workup and was being treated with IV iron however no obvious source of blood loss on previous workup per daughter. ENDO: -Electrolyte replacement per protocol PROPH: -Bilateral lower extremity SCDs. No chemical DVT prophylaxis due to spinal surgery/continue famotidine LINES: -Utilize peripheral IVs, central line as needed -PT evaluate and treat Discussed with patient's daughter at length on 10/21. Await improvement in neurologic status. Off all sedatives currently. Neurology following. All impression: His baseline mental status was quite good prior to this and so far the family has requested ongoing aggressive care. We will continue to try to clean up his lungs and encourage ventilator weaning. Lumbar drain in place, hold transfer to LTAC for now until drain is out.. The gentleman either has pleural effusions or renal failure depending how successfully we have diuresed him. He remains unstable and will likely be a long-term vent weaning problem, plan LTAC transfer when CSF drain is removed. Lumbar drain is clamped we will observe for any signs of leakage through the lumbar dressing.
--- NOTE | 2018-10-23 14:30 | P.PNID ---
Subjective Remarks: Patient is a 73-year-old male, initially presented at [facility] for evaluation of acute onset bilateral lower extremity weakness. He apparently woke up on the morning of presentation with numbness and weakness of bilateral lower extremity. He tried to walk but fell on his face. Patient presented to [facility] and CT of the lumbar spine showed a large area of soft attenuation in the ventral epidural space at L2-L3 suspicious for a large disc extrusion with spinal canal stenosis. He was transferred here at [facility] for neurosurgical evaluation. He underwent surgery on October 02 and had L2-L5 posterior spinal fusion, and left L2-L3 microdiscectomy. He was on the vent postoperatively. He had a repeat MRI on October 03 which showed disc herniation, and the patient underwent surgery again and had a right discectomy L2-L3. Patient has had problem with his respiratory status. He was extubated and reintubated 3 times, and subsequently underwent tracheostomy on October 08. On October 09 he was found to have a CSF leak, and underwent placement of a lumbar drain. He continues to have drainage, and he went to surgery again on October 14 and had revision of the lumbar wound, and repair of the leak, and has a lumbar drain again. Infectious disease consultation has been requested to assist with antibiotic management in a patient who has had a CSF leak. Notes reviewed Afebrile BP ok On CPAP today He is focusing Being work-up for GIB Lumbar drain in place - clamped since yesterday Has 2 BC with GPC Last CSF C/S 10/22 - negative RPR negative Sputum - Sten mal, Citrobacter and MSSA Antibiotics: Azactam Vancomycin Levaquin Lines: PIV Past Medical History: Back pain Colonic polyp GERD (gastroesophageal reflux disease) Hypertension Neuropathy Osteoarthritis Prostate carcinoma Endarterectomy Allergies/Adverse Reactions: Allergies No Known Allergies (Unknown, Uncoded 10/27/17 16:04) Objective Vital Signs 10/22/18 14:29 10/22/18 15:00 10/22/18 16:00 Temperature 99.3 F 99.1 F Pulse Rate 110 H 98 H 108 H Respiratory Rate 21 23 29 H Blood Pressure 147/64 H 167/74 H 195/92 H Pulse Oximetry 89 L 92 L 93 L 10/22/18 16:28 10/22/18 17:00 10/22/18 17:12 Temperature 99.0 F 98.6 F Pulse Rate 112 H 101 H Respiratory Rate 23 26 H 21 Blood Pressure 173/77 H 153/71 H Pulse Oximetry 94 L 96 97 10/22/18 18:00 10/22/18 19:00 10/22/18 19:50 Temperature 98.2 F 98.6 F Pulse Rate 112 H 101 H Respiratory Rate 24 17 18 Blood Pressure 155/71 H 161/74 H Pulse Oximetry 98 95 10/22/18 20:00 10/22/18 21:00 10/22/18 21:08 Temperature 98.6 F 98.4 F 98.6 F Pulse Rate 100 H 120 H 105 H Respiratory Rate 18 34 H 22 Blood Pressure 181/85 H 159/74 H 170/81 H Pulse Oximetry 99 94 L 96 10/22/18 22:00 10/22/18 23:00 10/22/18 23:54 Temperature 98.4 F 98.4 F Pulse Rate 82 95 H 97 H Respiratory Rate 25 H 34 H 22 Blood Pressure 178/79 H 186/84 H Pulse Oximetry 98 97 100 10/23/18 00:00 10/23/18 00:51 10/23/18 01:00 Temperature 98.8 F 99.0 F Pulse Rate 97 H 93 H Respiratory Rate 20 16 13 Blood Pressure 160/74 H 166/74 H Pulse Oximetry 100 98 99 10/23/18 02:00 10/23/18 03:00 10/23/18 04:00 Temperature 98.8 F 98.8 F Pulse Rate 96 H 89 81 Respiratory Rate 20 12 15 Blood Pressure 186/81 H 190/82 H Pulse Oximetry 100 100 100 10/23/18 04:15 10/23/18 05:00 10/23/18 05:31 Temperature 98.6 F 98.6 F Pulse Rate 84 90 Respiratory Rate 16 24 22 Blood Pressure 207/92 H 202/91 H Pulse Oximetry 100 100 100 10/23/18 05:45 10/23/18 06:00 10/23/18 07:00 Temperature 98.6 F 98.6 F 98.6 F Pulse Rate 93 H 100 H 95 H Respiratory Rate 30 H 19 23 Blood Pressure 191/86 H 172/69 H 191/82 H Pulse Oximetry 100 100 100 10/23/18 07:15 10/23/18 07:30 10/23/18 07:45 Temperature 98.6 F 98.6 F Pulse Rate 91 H 95 H 92 H Respiratory Rate 18 17 17 Blood Pressure 172/78 H 169/66 H 173/81 H Pulse Oximetry 100 100 100 10/23/18 08:00 10/23/18 08:15 10/23/18 08:30 Temperature 98.6 F 98.4 F 98.6 F Pulse Rate 94 H 102 H 106 H Respiratory Rate 16 24 26 H Blood Pressure 166/79 H 175/82 H 227/97 H Pulse Oximetry 100 100 100 10/23/18 08:34 10/23/18 08:45 10/23/18 08:51 Temperature 98.6 F 98.6 F Pulse Rate 111 H 98 H Respiratory Rate 38 H 23 12 Blood Pressure 178/81 H 174/81 H Pulse Oximetry 100 100 100 10/23/18 09:00 10/23/18 09:15 10/23/18 09:45 Temperature 98.6 F 98.6 F 98.6 F Pulse Rate 98 H 100 H 106 H Respiratory Rate 21 24 24 Blood Pressure 185/86 H 176/81 H 167/83 H Pulse Oximetry 100 100 100 10/23/18 10:00 10/23/18 10:15 10/23/18 10:30 Temperature 98.6 F 98.4 F 98.4 F Pulse Rate 96 H 80 77 Respiratory Rate 16 19 20 Blood Pressure 179/82 H 180/83 H 183/80 H Pulse Oximetry 100 100 100 Intake & Output 10/22/18 10/23/18 10/23/18 18:59 06:59 18:59 Intake Total 1380 / 1380 1863 / 1863 100 / 100 Output Total 1135 / 1135 750 / 750 Balance 245 / 245 1113 / 1113 100 / 100 Weight 96.4 kg Intake: IV 600 / 600 1050 / 1050 100 / 100 LR 1000 mL Inj 1,000 ML @ 20 400 / 400 850 / 850 mls/hr IV.CONT .Q24H ERIKA Rx#: [id number] Azactam Inj 2 GM In NS Inj 100 200 / 200 200 / 200 100 / 100 ML @ 200 mls/hr IV.SIG Q8H ERIKA Rx#:[id number] Tube Feeding 540 / 540 663 / 663 Tube Irrigant 240 / 240 60 / 60 Water Bolus Amount 90 / 90 Output: Urine Amount (Catheter) 1100 / 1100 750 / 750 Indwelling Urethral Catheter 1100 / 1100 750 / 750 Wound Drainage Posterior Lumbar Other: Date of Last Bowel Movement 10/22/18 10/23/18 # Bowel Movements 3 10/23/18 10:32 Stool Occult Blood - Pending 10/19/18 17:30 Sputum - Endotracheal Gram Stain - Final 10/19/18 17:30 Sputum - Endotracheal Sputum Culture - Final Stenotrophomonas maltophilia Citrobacter freundii Staphylococcus aureus 10/22/18 04:10 Blood - Peripheral Aerobic Blood Culture - Preliminary No growth in 1 day 10/22/18 04:10 Blood - Peripheral Anaerobic Blood Culture - Preliminary No growth in 1 day 10/22/18 04:15 Blood - Peripheral Aerobic Blood Culture - Preliminary No growth in 1 day 10/22/18 04:15 Blood - Peripheral Anaerobic Blood Culture - Preliminary No growth in 1 day 10/19/18 18:35 Blood - Peripheral Aerobic Blood Culture - Final Staphylococcus warneri 10/19/18 18:35 Blood - Peripheral Anaerobic Blood Culture - Final QNS - See aerobic report. 10/22/18 09:20 Lumbar Puncture Gram Stain - Final 10/22/18 09:20 Lumbar Puncture CSF Culture - Preliminary No growth in 24 hours 10/19/18 18:45 Blood - Peripheral Aerobic Blood Culture - Preliminary Staphylococcus coag negative 10/19/18 18:45 Blood - Peripheral Anaerobic Blood Culture - Final QNS - See aerobic report. 10/14/18 13:51 Tissue - Other Fungal Smear - Final No fungal elements seen 10/14/18 13:51 Tissue - Other Fungal Culture - Preliminary No growth in 1 week 10/14/18 13:51 Tissue - Other Acid Fast Bacilli Smear - Final No acid fast bacilli seen 10/14/18 13:51 Tissue - Other Mycobacterial Culture - Preliminary No growth in 1 week 10/14/18 13:51 Wound - Back Acid Fast Bacilli Smear - Final No acid fast bacilli seen 10/14/18 13:51 Wound - Back Mycobacterial Culture - Preliminary No growth in 1 week 10/14/18 13:51 Wound - Back Fungal Smear - Final No fungal elements seen 10/14/18 13:51 Wound - Back Fungal Culture - Preliminary No growth in 1 week 10/19/18 17:30 Clean Catch Urine Urine Culture - Final Ni albicans Lab - Hematology Results 10/21/18 10/23/18 21:25 12:35 WBC 7.5 RBC 2.48 L Hgb 9.2 L D 7.4 L Hct 27.9 L 21.6 L MCV 86.9 MCH 29.9 MCHC 34.4 RDW 17.4 H Plt Count 243 MPV 8.4 Neut % (Auto) 82.7 H Lymph % (Auto) 5.9 L Cache % (Auto) 9.1 H Eos % (Auto) 1.2 Baso % (Auto) 1.1 Neut # (Auto) 6.2 Lymph # (Auto) 0.4 L Cache # (Auto) 0.7 Eos # (Auto) 0.1 Baso # (Auto) 0.1 WBC Differential . Differential Comment Auto diff final Lab - Chemistry Results 10/22/18 10/23/18 04:10 04:19 Sodium 149 H Potassium 3.6 Chloride 117 H Carbon Dioxide 23.6 Anion Gap 8 BUN 60 H Creatinine 1.20 Estimated GFR 59 L Random Glucose 120 H Calcium 8.7 Iron 43 L TIBC 182 L % Saturation 23.6 Total Bilirubin 0.3 AST 40 H ALT 32 Alkaline Phosphatase 100 Total Protein 5.6 L Albumin 1.5 L Imaging: ITS Impressions Lumbar Spine X-Ray 10/04/18 00:00 CONCLUSION: Lumbar Puncture Fluoroscopy 10/09/18 00:00 CONCLUSION: 1. Uncomplicated lumbar drain placement as above. Lumbar Spine MRI 10/09/18 00:00 CONCLUSION: 1. Significant improvement in the postoperative appearance of the spine with good decompression at L2-3. There is no significant thecal sac impingement. 2. Moderate facet disease is seen in the fused levels stable interval. Thoracic Spine MRI 10/09/18 00:00 CONCLUSION: 1. Significant cervical spinal stenosis, not evaluated on this exam. 2. There is no intrathoracic cord compression. 3. Conus is unremarkable. Cervical Spine MRI 10/16/18 11:58 CONCLUSION: Mild spondylosis and disc disease. No significant canal or foraminal compromise. No explanation for myelopathy. Head MRI 10/16/18 11:58 CONCLUSION: No acute intracranial findings. Chest X-Ray 10/19/18 00:00 CONCLUSION: 1. Interval removal of NGT. 2. Diffuse airspace opacities throughout the right lung with more confluent consolidation in the medial right lower lung zone. 3. Patchy mid to lower left lung zone airspace disease. 4. Overall findings are concerning for aspiration or diffuse infection given history of fever. Physical Exam: GENERAL: Awake, focusing some. on CPAP, not in respiratory distress. SKIN: Cool and dry. Has scattered papular rash in his trunk, and his lower extremity, looks less HEAD: Atraumatic. Normocephalic. No temporal wasting, or tenderness. EYES: [place] conjunctiva. No petechia or hemorrhage. No scleral icterus. No injection or drainage. EARS, NOSE AND THROAT: Nose without bleeding or purulent nasal discharge. Slightly dry oral mucosa NECK: Tracheostomy site looks ok CARDIOVASCULAR: Regular rate and rhythm. No murmurs, rubs or gallops heard RESPIRATORY: Coarse breath sounds bilaterally, decreased at the bases. ABDOMEN: Soft, globular, non-tender, nondistended. Bowel sounds present and normoactive. EXTREMITIES: No clubbing, cyanosis. Has bilateral pedal edema. Well perfused and warm. BACK: Dressing in place, lumbar drain in place with clear CSF NEUROLOGICAL: Awake, focusing some PSYCHIATRIC: Calm LINE: No evidence of infection Assessment and Plan - Plan Impression Recurrent CSF leak, S/P surgery x2 for leak, last surgery 10/14. Culture pending. Drug eruption, better, likely from Cefepime Recurrent respiratory failure, S/P trach Encephalopathy New fever, better (+) BC, ?real or contaminant PNA GIB Recommendation Stop IV Azactam. Continue Vancomycin. Continue Levaquin Follow C/S Follow temps GI work up Monitor progress Weaning per CCM
[2018-10-23] MEDS: Divalproex 125 MG Sprinkles Capsule PO SCH (20:27)
[2018-10-23] MEDS: Temazepam 15 MG Capsule PO SCH (22:45)
[2018-10-24] MEDS: Oral Hygiene Kit OROPHARYNG SCH ×4 (00:10→16:31)
[2018-10-24] MEDS: Temazepam 15 MG Capsule PO SCH ×2 (01:30→21:55)
[2018-10-24] MEDS: Pantoprazole Inj 40 MG Vial IV.PUSH SCH ×2 (01:32→12:16)
[2018-10-24] MEDS: Methadone 10 MG Tablet PO SCH ×2 (06:02→17:09)
[2018-10-24] MEDS: hydrALAZINE HCl Inj 20 MG/ML Vial IV.PUSH PRN ×5 (06:03→21:09)
[2018-10-24] MEDS: Famotidine PF Inj 20 MG/2 ML Vial IV.PUSH SCH ×2 (08:11→20:13)
[2018-10-24] MEDS: Senna/Docusate Sodium 8.6/50 MG Tablet PO SCH ×2 (08:11→20:13)
[2018-10-24] MEDS: levoFLOXacin 750 MG Tablet PO SCH (08:11)
[2018-10-24] MEDS: Metoprolol Tartrate 50 MG Tablet PO SCH ×2 (08:11→20:13)
[2018-10-24] MEDS: Chlorhexidine 0.12% Oral Kit 15 ML UDC OROPHARYNG SCH ×2 (08:12→20:12)
[2018-10-24] MEDS: Sodium Chloride 0.9% 2 ML Flush BID IV.FLUSH SCH ×2 (08:12→20:49)
--- NOTE | 2018-10-24 08:43 | P.PNCC ---
Subjective Subjective Remarks/Hospital Course: Patient is a 73-year-old male with past medical history significant for hypertension, COPD, Prostate carcinoma, history of previous lumbar laminectomy who came to the [place] emergency department as a transfer from transfer from [facility]. He was accepted by neurosurgery Dr. Peter for acute onset bilateral lower extremity weakness. Patient states that he woke up this morning around 6 AM with numbness and weakness of bilateral lower extremity. On attempt to walk he fell on his face due to weakness. Patient states that the strength got slight better since then. CT scan of the lumbar spine large area of soft attenuation attenuation in the ventral epidural space L2-L3 level suspicious for large disc extrusion with spinal canal stenosis with differential diagnosis involving hemorrhage, there is also at least moderate bilateral neural foraminal stenosis. I evaluate the patient in the ED. He complains of weakness more on the left leg which he is unable to lift. There is generalized numbness but he is able to feel my touch. Critical care was requested to admit the patient to the ICU. Discussed with Dr. Mittal ED and Dr. Peter neurosurgery. A stat MRI of the lumbar spine had been ordered. 10/03: Remains intubated sedated. Remains on Levophed at 10 mcg/min to maintain map above 70. Patient is s/p L2 to L5 posterior spinal fusion, Left L2 /3 microdiscectomy. (MRI showed large herniated disc at L2/3 and flex/ex showing instability at this level). On sedation hold patient is moving all 4 extremities. Hb 8.3 will transfuse 1 unit PRBC due to hypotension 10/04: Remains intubated sedated remains on 8 mcg/min of Levophed to maintain map above 75. Transfusing 1 unit PRBC for hemoglobin 7.4. post-op MRI with significant disc herniation at L2/3. Scheduled for surgery today with Dr. Peter 10/05: Patient underwent surgery on 10/04/2018 for removal residual disc at L2/ 3 right side based on post-op MRI. (s/p L2-5 revision fusion and left L2/3 discectomy on 10/02/18). Today patient's hypoxemia had improved, he was awake but on lightening sedation was very agitated so after a short CPAP trial patient was extubated. Shortly after extubation patient became very agitated requiring four-point restraints and physically nurses having to restrain him. 2 mg IV Ativan was given following which patient became partially responsive with obstructive airway sounds. Shortly became hypoxemic desaturated, became bradycardic in 40s and systolic blood pressure does drop to mid 40s. I was emergently called to the bedside I started bag and mask ventilation immediately. Half ampule of epinephrine was post IV. His heart rate in systolic blood pressure improved with bag and mask ventilation and epinephrine push however he remained unresponsive. Emergently intubated and placed on mechanical ventilation. Once more responsive will start on sedation with Versed. Start Levophed to maintain map above 65. Postintubation chest x-ray is pending. 10/06: Remains intubated heavily sedated for vent synchrony. Patient gets very agitated on holding sedation. We will start Precedex to facilitate vent weaning. Hemoglobin is 7.1, 1 unit of PRBC followed by IV Lasix ordered. 10/07: Agitated. TVs > 1.0 liter spontaneous. Extubated. Patient required reintubation about 5 hours later due to hypoxemia. 10/08: Intubated for the third time last evening. He is unable to tolerate extubation due to a combination of underlying lung disease and severe agitation. If the family wishes to proceed he will require tracheostomy for safe weaning from the ventilator. His baseline mental status is apparently pretty close to normal. 10/09: Tracheostomy placed yesterday. Large amounts of white thick secretions encountered. Chest x-ray continues with a pattern of pulmonary edema. We will continue aggressive twice daily diuretic therapy. Ostensibly plan is to transfer to [facility] at the beginning of next week. One family member is not on board with that yet however. 10/10: Lumbar drain has been placed. Continue spontaneous breathing trials through tracheostomy. Continue discussions with family about transfer to LTAC for long-term weaning. No evidence of infection. 10/11: Effective diuresis but now developing a mild prerenal azotemia. Will hold off for a while and gently hydrate. Now the tracheostomy is performed there is not quite urgency to desiccate his lungs. Hopefully we can work toward a cyst transferred to [facility] after lumbar drain discontinued. 10/12: Following tracheostomy we will continue with attempts at ventilator weaning. Patient has a lumbar drain in place in an attempt to stop a lumbar region wound CSF leak. [facility] will take this patient for long-term weaning once lumbar drain is out. Gentle hydration continues until such time as prerenal azotemia is attenuated. Continue enteral nutrition. 10/13: Remains on mechanical ventilation via tracheostomy. Still on significant sedation due to agitation issues. Lumbar drain continues to drain. Possible surgery tomorrow. 10/14: Remains sedated, on mechanical ventilation via tracheostomy. Scheduled for surgery today for CSF leak lumbar region. 10/15: Remains sedated on mechanical ventilation via tracheostomy. Status post revision of lumbar wound on 10/14 by neurosurgery. Lumbar drain in place and drained 120 cc since yesterday. 10/16: Remains on mechanical ventilation via tracheostomy. Still dealing with agitation on lightening sedation. On Precedex/fentanyl. Received 1 dose of Geodon last night. Also getting as needed Ativan and Seroquel. 10/17: We continue to deal with bouts of agitation which hamper her ability to wean him from the ventilator. Gas exchange remains acceptable. He has required 1 unit of blood transfusion. 10/18: Plan is to clamp drain friday and remove mid-week if lumbar dressing stays dry. Tolerating CPAP today we will try to progress to T piece. 10/19: Patient still intermittently agitated. Per neurology service request we will stop all sedation and analgesia aside from methadone. 10/20: We are unsuccessful getting past spontaneous breathing trials. Still not strong enough to tolerate T-piece. 10/21: Remains encephalopathic, on mechanical ventilation via tracheostomy. Failed CPAP trial this morning. Hemoglobin 6.2. Ordered 2 units PRBCs to be transfused. No overt evidence of blood loss. Temperature 100.7 this morning. Lumbar drain in place and put out 120 cc CSF overnight. Off all sedatives. Tolerating tube feeds via PEG. 10/22: Remains encephalopathic. Has spontaneous eye opening however not following commands. Lumbar drain remains in place. 10/23: Awake, follows occasional commands. Remains on mechanical ventilation via tracheostomy. Melena this morning. Hemoglobin dropped to 7.4. No hypotension. GI reconsulted for evaluation for GI bleed. 1 unit PRBCs being transfused. Dr. Hamilton from neurology reevaluated patient and is initiating a sleep regimen. 10/24: Patient is opening eyes to minimal voice this morning and tracking with his eyes. He is calm and I have not witnessed any of his customary severe agitation. Modest early prerenal azotemia developing, hydrate gently. Continue spontaneous breathing trials, not tolerating T-piece yet. Objective Vital Signs / I&O: Vital Signs 10/23/18 08:15 10/23/18 08:30 10/23/18 08:34 Temperature 98.4 F 98.6 F 98.6 F Pulse Rate 102 H 106 H 111 H Respiratory Rate 24 26 H 38 H Blood Pressure 175/82 H 227/97 H 178/81 H Pulse Oximetry 100 100 100 10/23/18 08:45 10/23/18 08:51 10/23/18 09:00 Temperature 98.6 F 98.6 F Pulse Rate 98 H 98 H Respiratory Rate 23 12 21 Blood Pressure 174/81 H 185/86 H Pulse Oximetry 100 100 100 10/23/18 09:15 10/23/18 09:45 10/23/18 10:00 Temperature 98.6 F 98.6 F 98.6 F Pulse Rate 100 H 106 H 96 H Respiratory Rate 24 24 16 Blood Pressure 176/81 H 167/83 H 179/82 H Pulse Oximetry 100 100 100 10/23/18 10:15 10/23/18 10:30 10/23/18 10:45 Temperature 98.4 F 98.4 F 98.4 F Pulse Rate 80 77 79 Respiratory Rate 19 20 19 Blood Pressure 180/83 H 183/80 H 171/77 H Pulse Oximetry 100 100 100 10/23/18 11:00 10/23/18 11:15 10/23/18 11:30 Temperature 98.4 F 98.4 F 98.6 F Pulse Rate 82 82 81 Respiratory Rate 32 H 28 H 26 H Blood Pressure 194/92 H 182/83 H 188/84 H Pulse Oximetry 100 100 100 10/23/18 11:45 10/23/18 12:00 10/23/18 12:15 Temperature 98.6 F 98.6 F 98.4 F Pulse Rate 78 79 85 Respiratory Rate Blood Pressure 186/81 H 182/81 H 201/88 H Pulse Oximetry 100 100 99 10/23/18 12:30 10/23/18 12:45 10/23/18 13:00 Temperature 98.4 F 98.2 F 98.2 F Pulse Rate 86 92 H 87 Respiratory Rate Blood Pressure 181/79 H 179/77 H 163/74 H Pulse Oximetry 98 100 100 10/23/18 13:15 10/23/18 13:21 10/23/18 14:00 Temperature 98.2 F 98.1 F 97.9 F Pulse Rate 97 H 99 H 92 H Respiratory Rate Blood Pressure 203/92 H 165/66 H Pulse Oximetry 97 99 99 10/23/18 14:05 10/23/18 14:50 10/23/18 15:00 Temperature 97.9 F 97.9 F 98.1 F Pulse Rate 92 H 86 81 Respiratory Rate Blood Pressure 184/85 H 187/81 H Pulse Oximetry 99 100 100 10/23/18 15:11 10/23/18 15:18 10/23/18 15:30 Temperature 98.1 F 98.1 F 98.1 F Pulse Rate 81 81 82 Respiratory Rate 12 Blood Pressure 176/77 H 176/77 H 173/81 H Pulse Oximetry 100 99 10/23/18 15:31 10/23/18 15:32 10/23/18 15:46 Temperature 97.9 F 97.9 F 97.9 F Pulse Rate 78 81 79 Respiratory Rate 8 L 15 28 H Blood Pressure 173/81 H 178/79 H 178/69 H Pulse Oximetry 100 100 100 10/23/18 16:00 10/23/18 16:01 10/23/18 16:16 Temperature 97.7 F 97.7 F 97.7 F Pulse Rate 92 H 86 84 Respiratory Rate 26 H 20 18 Blood Pressure 187/86 H 181/84 H Pulse Oximetry 100 98 100 10/23/18 16:31 10/23/18 16:46 10/23/18 17:00 Temperature 97.7 F 97.7 F 97.7 F Pulse Rate 86 83 87 Respiratory Rate 21 20 21 Blood Pressure 183/86 H 180/86 H 178/84 H Pulse Oximetry 100 99 100 10/23/18 17:01 10/23/18 17:11 10/23/18 17:16 Temperature 97.7 F 97.5 F L Pulse Rate 87 89 Respiratory Rate 24 14 26 H Blood Pressure 178/84 H 183/79 H Pulse Oximetry 99 98 99 10/23/18 17:31 10/23/18 17:46 10/23/18 18:00 Temperature 97.5 F L 97.5 F L 97.5 F L Pulse Rate 91 H 93 H 82 Respiratory Rate 24 15 14 Blood Pressure 168/81 H 177/79 H Pulse Oximetry 99 100 100 10/23/18 18:01 10/23/18 18:16 10/23/18 18:31 Temperature 97.5 F L 97.7 F 97.5 F L Pulse Rate 84 86 86 Respiratory Rate 15 14 16 Blood Pressure 158/63 H 165/74 H 166/70 H Pulse Oximetry 99 98 99 10/23/18 19:27 10/23/18 20:00 10/23/18 20:01 Temperature 97.3 F L 97.7 F Pulse Rate 97 H 94 H Respiratory Rate 19 28 H 21 Blood Pressure 172/82 H Pulse Oximetry 99 98 97 10/23/18 20:16 10/23/18 20:31 10/23/18 20:46 Temperature 96.6 F L 97.3 F L 97.7 F Pulse Rate 101 H 100 H 104 H Respiratory Rate 28 H 19 24 Blood Pressure 164/78 H 175/81 H 172/75 H Pulse Oximetry 97 96 10/23/18 21:00 10/23/18 21:01 10/23/18 21:16 Temperature 95.5 F L 93.7 F L 97.9 F Pulse Rate 96 H 98 H 97 H Respiratory Rate 19 22 23 Blood Pressure 184/84 H 181/89 H Pulse Oximetry 10/23/18 21:31 10/23/18 21:46 10/23/18 22:00 Temperature 98.4 F 98.2 F 98.4 F Pulse Rate 87 77 77 Respiratory Rate 21 25 H 18 Blood Pressure 186/91 H 165/79 H Pulse Oximetry 10/23/18 22:01 10/23/18 22:16 10/23/18 22:31 Temperature 98.4 F 98.4 F 98.4 F Pulse Rate 79 78 82 Respiratory Rate 23 22 19 Blood Pressure 191/84 H 191/85 H 206/91 H Pulse Oximetry 10/23/18 22:46 10/23/18 23:00 10/23/18 23:01 Temperature 98.4 F 98.4 F 98.4 F Pulse Rate 82 73 72 Respiratory Rate 18 14 13 Blood Pressure 167/72 H 148/66 H Pulse Oximetry 10/23/18 23:16 10/23/18 23:31 10/23/18 23:46 Temperature 98.4 F 98.4 F 98.4 F Pulse Rate 67 80 78 Respiratory Rate 12 21 20 Blood Pressure 145/67 H 190/81 H 179/81 H Pulse Oximetry 100 100 10/23/18 23:55 10/24/18 00:00 10/24/18 00:01 Temperature 98.4 F 98.4 F Pulse Rate 69 67 Respiratory Rate 13 13 11 L Blood Pressure 175/75 H Pulse Oximetry 100 100 100 10/24/18 00:16 10/24/18 00:31 10/24/18 01:55 Temperature 98.4 F 98.2 F 98.2 F Pulse Rate 83 87 75 Respiratory Rate 21 20 13 Blood Pressure 189/88 H 180/74 H Pulse Oximetry 100 99 99 10/24/18 02:00 10/24/18 02:01 10/24/18 02:16 Temperature 98.2 F 98.2 F 98.2 F Pulse Rate 72 71 73 Respiratory Rate 14 15 14 Blood Pressure 144/65 H 155/72 H Pulse Oximetry 99 99 100 10/24/18 03:34 10/24/18 04:00 10/24/18 04:01 Temperature 98.4 F 98.4 F Pulse Rate 89 86 Respiratory Rate 12 13 15 Blood Pressure 166/73 H Pulse Oximetry 100 100 100 10/24/18 04:16 10/24/18 04:31 10/24/18 04:46 Temperature 98.6 F 98.6 F 98.4 F Pulse Rate 77 90 96 H Respiratory Rate 15 15 18 Blood Pressure 141/68 H 185/79 H 169/66 H Pulse Oximetry 100 100 100 10/24/18 05:00 10/24/18 05:01 10/24/18 05:54 Temperature 98.4 F 98.4 F 98.4 F Pulse Rate 100 H 99 H 83 Respiratory Rate 18 20 14 Blood Pressure 174/81 H 191/86 H Pulse Oximetry 99 99 100 10/24/18 06:00 10/24/18 07:34 Temperature 98.4 F Pulse Rate 83 Respiratory Rate 12 15 Blood Pressure Pulse Oximetry 100 100 Intake & Output 10/23/18 10/24/18 10/24/18 18:59 06:59 18:59 Intake Total 600 / 600 440 / 440 250 / 250 Output Total 1175 / 1175 975 / 975 Balance -575 / -575 -535 / -535 250 / 250 Weight 93.8 kg Intake: IV 100 / 100 250 / 250 Azactam Inj 2 GM In NS Inj 100 100 / 100 ML @ 200 mls/hr IV.SIG Q8H ERIKA Rx#:[id number] NS Inj 250 ML @ 15 mls/hr IV. 250 / 250 SIG ONCE ERIKA Rx#:[id number] Tube Feeding 250 / 250 Tube Irrigant 90 / 90 Water Bolus Amount 100 / 100 Other 100 / 100 Rbc As-3 Leukoreduced Unit 100 / 100 [id number] Intake (Blood Product) Amt 400 / 400 Rbc As-3 Leukoreduced Unit 400 / 400 [id number] Output: Urine Amount (Catheter) 1175 / 1175 975 / 975 Indwelling Urethral Catheter 1175 / 1175 975 / 975 Other: Other Intake Source Rbc As-3 Leukoreduced Unit Saline Solution [id number] Date of Last Bowel Movement 10/23/18 10/24/18 # Bowel Movements 2 4 Result Diagrams: 10/23/18 12:35 10/22/18 04:10 Objective Remarks: GENERAL: Elderly gentleman, ongoing vent weaning trials. No sedation. SKIN: Warm and dry HEAD: Normocephalic. Atraumatic EYES: No injection or drainage. No conjunctival icterus or injection NECK: Supple. Tracheostomy in place, site is clean and dry CARDIOVASCULAR: Regular rate and rhythm, S1-S2 normal, no murmurs. No JVD RESPIRATORY: Good bilateral air movement, generally clear. GASTROINTESTINAL: Abdomen soft, non-tender, nondistended. Bowel sounds present , no guarding. MUSCULOSKELETAL: No cyanosis, trace edema persists. Warm, well-perfused. NEURO: Intubated via tracheostomy, holding sedation and antipsychotics. Moves all 4 limbs spontaneously. Lumbar drain in place with dressing over surgical site clean and intact. 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 Code(s): M47.16 - Other spondylosis with myelopathy, lumbar region Status: Acute (2) Weakness of lower extremity Code(s): R29.898 - Other symptoms and signs involving the musculoskeletal system Status: Acute (3) COPD (chronic obstructive pulmonary disease) Code(s): J44.9 - Chronic obstructive pulmonary disease, unspecified Status: Chronic (4) History of prostate cancer Code(s): Z85.46 - Personal history of malignant neoplasm of prostate Status: Chronic (5) History of hypertension Code(s): Z86.79 - Personal history of other diseases of the circulatory system Status: Chronic - Assessment and Plan Plan: ASSESSMENT: Acute hypoxemic hypercarbic/hypoxemic respiratory failure Respiratory arrest after receiving Ativan on 10/05/2018 Hypotension now resolved Lumbar cord compression likely secondary to large herniated disc, with lower extremity weakness Right L2/L3 discectomy 10/04/2018 for removal residual disc at right L2/3 s/p L2-5 revision fusion and left L2/3 discectomy on 10/02/18. Hypotension on pressors History of previous lumbar posterior fusion and microdiscectomy by Dr. Hansen Acute on chronic kidney disease Anemia requiring transfusion Suspected GI bleed History of prostate cancer COPD History of hypertension PLAN: NEURO: -MRI showing large herniated disc at L2/3 and flex/ex showing instability at this level. -s/p L2-5 revision fusion and left L2/3 discectomy on 10/02/18. -post-op MRI with significant disc herniation at right L2/3 despite resection, Right L2/L3 discectomy 10/04/2018 - Lumbar drain clamped, in place for CSF leak. Status post lumbar wound revision on 10/14 by neurosurgery -Continue to hold medications for agitation. -Hold all sedation and antipsychotics 10/19 -Test clamp lumbar drain started 10/19 -Sleep regimen being initiated by Dr. Hamilton RESP: -Extubated 10/05/18 however became unresponsive and hypoxic after receiving Ativan for agitation -Emergently reintubated and placed on mechanical ventilation -Currently on PRVC/AC -DuoNeb every 6 hours scheduled and as needed -Extubated again 10/07 -Required reintubation 5 hours after extubation due to secretions and hypoxemia. -Tracheostomy performed 10/08 -Continue spontaneous breathing trials. Wean from 10/28. CV: -Cardiac decompensation most likely secondary to pulmonary problems, hypoxemia -Gas exchange acceptable -Fluid balance remains about right now GI: - IV famotidine. Hold tube feeds in view of melena for GI evaluation status post PEG. - May require colonoscopy. - Bowel regimen instituted : -Monitor renal function closely. -Strict intake output, monitor and replete elect lytes, follow BUN and creatinine ID: -Sputum culture, stop cefepime due to rash, switched to IV Azactam and vancomycin due to rash on 10/16. -Adjust per ID consult for antibiotic management -10/19 Sputum growing gram-negative rods, one positive blood culture with [facility]. HEME: -Monitor CBC, coags -Ordered 2 units PRBCs to be transfused for hemoglobin 6.2 on 10/21. Melena noted on 10/23 with drop in hemoglobin. 1 unit PRBCs ordered to be transfused on 10/23 -Per discussion with patient's daughter on 10/21 he has had extensive workup for anemia with an oncologist including bone marrow, GI workup and was being treated with IV iron however no obvious source of blood loss on previous workup per daughter. ENDO: -Electrolyte replacement per protocol PROPH: -Bilateral lower extremity SCDs. No chemical DVT prophylaxis due to evidence of recent GI bleed LINES: -Utilize peripheral IVs, central line as needed -PT evaluate and treat Await improvement in neurologic status. Off all sedatives currently. Neurology following. Overall impression impression: We will continue to try to clean up his lungs and encourage ventilator weaning. Lumbar drain in place, hold transfer to LTAC for now until drain is out. He remains a long-term vent weaning problem, plan LTAC transfer when CSF drain is removed.
[2018-10-24 11:18] LABS: Hematocrit 24.3 % (39.0-51.0); Hemoglobin 8.3 gm/dL (13.0-17.0); Mean Corpuscular HGB Conc 34.3 % (32.0-36.0); Mean Corpuscular Hemoglobin 30.1 pg (27.0-34.0); Mean Corpuscular Volume 87.9 fL (80.0-100.0); Mean Platelet Volume 8.4 fL (7.0-11.0); Platelet Count 260 th/mm3 (150-450); Red Blood Count 2.76 mil/mm3 (4.50-5.90); Red Cell Distribution Width 16.6 % (11.6-17.2); White Blood Count 6.9 th/mm3 (4.0-11.0)
--- NOTE | 2018-10-24 12:20 | P.PNNS ---
Subjective Interval history: Wound dry, drain dc'd. Tarry stools continue Hgb 7 after transfusion day prior, appreciate GI consult Physical Exam Vital signs: Vital Signs 10/23/18 12:30 10/23/18 12:45 10/23/18 13:00 Temperature 98.4 F 98.2 F 98.2 F Pulse Rate 86 92 H 87 Respiratory Rate Blood Pressure 181/79 H 179/77 H 163/74 H Pulse Oximetry 98 100 100 10/23/18 13:15 10/23/18 13:21 10/23/18 14:00 Temperature 98.2 F 98.1 F 97.9 F Pulse Rate 97 H 99 H 92 H Respiratory Rate Blood Pressure 203/92 H 165/66 H Pulse Oximetry 97 99 99 10/23/18 14:05 10/23/18 14:50 10/23/18 15:00 Temperature 97.9 F 97.9 F 98.1 F Pulse Rate 92 H 86 81 Respiratory Rate Blood Pressure 184/85 H 187/81 H Pulse Oximetry 99 100 100 10/23/18 15:11 10/23/18 15:18 10/23/18 15:30 Temperature 98.1 F 98.1 F 98.1 F Pulse Rate 81 81 82 Respiratory Rate 12 Blood Pressure 176/77 H 176/77 H 173/81 H Pulse Oximetry 100 99 10/23/18 15:31 10/23/18 15:32 10/23/18 15:46 Temperature 97.9 F 97.9 F 97.9 F Pulse Rate 78 81 79 Respiratory Rate 8 L 15 28 H Blood Pressure 173/81 H 178/79 H 178/69 H Pulse Oximetry 100 100 100 10/23/18 16:00 10/23/18 16:01 10/23/18 16:16 Temperature 97.7 F 97.7 F 97.7 F Pulse Rate 92 H 86 84 Respiratory Rate 26 H 20 18 Blood Pressure 187/86 H 181/84 H Pulse Oximetry 100 98 100 10/23/18 16:31 10/23/18 16:46 10/23/18 17:00 Temperature 97.7 F 97.7 F 97.7 F Pulse Rate 86 83 87 Respiratory Rate 21 20 21 Blood Pressure 183/86 H 180/86 H 178/84 H Pulse Oximetry 100 99 100 10/23/18 17:01 10/23/18 17:11 10/23/18 17:16 Temperature 97.7 F 97.5 F L Pulse Rate 87 89 Respiratory Rate 24 14 26 H Blood Pressure 178/84 H 183/79 H Pulse Oximetry 99 98 99 10/23/18 17:31 10/23/18 17:46 10/23/18 18:00 Temperature 97.5 F L 97.5 F L 97.5 F L Pulse Rate 91 H 93 H 82 Respiratory Rate 24 15 14 Blood Pressure 168/81 H 177/79 H Pulse Oximetry 99 100 100 10/23/18 18:01 10/23/18 18:16 10/23/18 18:31 Temperature 97.5 F L 97.7 F 97.5 F L Pulse Rate 84 86 86 Respiratory Rate 15 14 16 Blood Pressure 158/63 H 165/74 H 166/70 H Pulse Oximetry 99 98 99 10/23/18 19:27 10/23/18 20:00 10/23/18 20:01 Temperature 97.3 F L 97.7 F Pulse Rate 97 H 94 H Respiratory Rate 19 28 H 21 Blood Pressure 172/82 H Pulse Oximetry 99 98 97 10/23/18 20:16 10/23/18 20:31 10/23/18 20:46 Temperature 96.6 F L 97.3 F L 97.7 F Pulse Rate 101 H 100 H 104 H Respiratory Rate 28 H 19 24 Blood Pressure 164/78 H 175/81 H 172/75 H Pulse Oximetry 97 96 10/23/18 21:00 10/23/18 21:01 10/23/18 21:16 Temperature 95.5 F L 93.7 F L 97.9 F Pulse Rate 96 H 98 H 97 H Respiratory Rate 19 22 23 Blood Pressure 184/84 H 181/89 H Pulse Oximetry 10/23/18 21:31 10/23/18 21:46 10/23/18 22:00 Temperature 98.4 F 98.2 F 98.4 F Pulse Rate 87 77 77 Respiratory Rate 21 25 H 18 Blood Pressure 186/91 H 165/79 H Pulse Oximetry 10/23/18 22:01 10/23/18 22:16 10/23/18 22:31 Temperature 98.4 F 98.4 F 98.4 F Pulse Rate 79 78 82 Respiratory Rate 23 22 19 Blood Pressure 191/84 H 191/85 H 206/91 H Pulse Oximetry 10/23/18 22:46 10/23/18 23:00 10/23/18 23:01 Temperature 98.4 F 98.4 F 98.4 F Pulse Rate 82 73 72 Respiratory Rate 18 14 13 Blood Pressure 167/72 H 148/66 H Pulse Oximetry 10/23/18 23:16 10/23/18 23:31 10/23/18 23:46 Temperature 98.4 F 98.4 F 98.4 F Pulse Rate 67 80 78 Respiratory Rate 12 21 20 Blood Pressure 145/67 H 190/81 H 179/81 H Pulse Oximetry 100 100 10/23/18 23:55 10/24/18 00:00 10/24/18 00:01 Temperature 98.4 F 98.4 F Pulse Rate 69 67 Respiratory Rate 13 13 11 L Blood Pressure 175/75 H Pulse Oximetry 100 100 100 10/24/18 00:16 10/24/18 00:31 10/24/18 01:55 Temperature 98.4 F 98.2 F 98.2 F Pulse Rate 83 87 75 Respiratory Rate 21 20 13 Blood Pressure 189/88 H 180/74 H Pulse Oximetry 100 99 99 10/24/18 02:00 10/24/18 02:01 10/24/18 02:16 Temperature 98.2 F 98.2 F 98.2 F Pulse Rate 72 71 73 Respiratory Rate 14 15 14 Blood Pressure 144/65 H 155/72 H Pulse Oximetry 99 99 100 10/24/18 03:34 10/24/18 04:00 10/24/18 04:01 Temperature 98.4 F 98.4 F Pulse Rate 89 86 Respiratory Rate 12 13 15 Blood Pressure 166/73 H Pulse Oximetry 100 100 100 10/24/18 04:16 10/24/18 04:31 10/24/18 04:46 Temperature 98.6 F 98.6 F 98.4 F Pulse Rate 77 90 96 H Respiratory Rate 15 15 18 Blood Pressure 141/68 H 185/79 H 169/66 H Pulse Oximetry 100 100 100 10/24/18 05:00 10/24/18 05:01 10/24/18 05:54 Temperature 98.4 F 98.4 F 98.4 F Pulse Rate 100 H 99 H 83 Respiratory Rate 18 20 14 Blood Pressure 174/81 H 191/86 H Pulse Oximetry 99 99 100 10/24/18 06:00 10/24/18 06:20 10/24/18 06:30 Temperature 98.4 F 98.2 F 98.2 F Pulse Rate 83 92 H 86 Respiratory Rate 12 12 15 Blood Pressure 187/79 H 176/78 H Pulse Oximetry 100 99 99 10/24/18 07:00 10/24/18 07:30 10/24/18 07:34 Temperature 98.2 F 98.4 F Pulse Rate 104 H 103 H Respiratory Rate 20 23 15 Blood Pressure 174/81 H 172/78 H Pulse Oximetry 100 99 100 10/24/18 08:00 10/24/18 08:30 10/24/18 10:48 Temperature 98.4 F 98.4 F Pulse Rate 108 H 94 H Respiratory Rate 20 10 L 16 Blood Pressure 165/76 H 169/74 H Pulse Oximetry 99 98 98 Intake & Output 10/23/18 10/24/18 10/24/18 18:59 06:59 18:59 Intake Total 600 / 600 440 / 440 250 / 250 Output Total 1175 / 1175 975 / 975 Balance -575 / -575 -535 / -535 250 / 250 Weight 93.8 kg Intake: IV 100 / 100 250 / 250 Azactam Inj 2 GM In NS Inj 100 100 / 100 ML @ 200 mls/hr IV.SIG Q8H [facility] Rx#:[id number] NS Inj 250 ML @ 15 mls/hr IV. 250 / 250 SIG ONCE [facility] Rx#:[id number] Tube Feeding 250 / 250 Tube Irrigant 90 / 90 Water Bolus Amount 100 / 100 Other 100 / 100 Rbc As-3 Leukoreduced Unit 100 / 100 [id number] Intake (Blood Product) Amt 400 / 400 Rbc As-3 Leukoreduced Unit 400 / 400 [id number] Output: Urine Amount (Catheter) 1175 / 1175 975 / 975 Indwelling Urethral Catheter 1175 / 1175 975 / 975 Other: Other Intake Source Rbc As-3 Leukoreduced Unit Saline Solution [id number] Date of Last Bowel Movement 10/23/18 10/24/18 10/24/18 # Bowel Movements 2 4 Narrative: starting to follow commands crossed arms less agitated incision c/d/i some drainage out of drian exit site to be expected - Urinary Catheter Management Indwelling Urethral Catheter Cath placed during this visit: yes, but has since been removed by the nurse Reason for continuing: Hourly intake/output Insertion date: 10/22/18 Insertion time: 08:05 Removal date: 10/22/18 Removal time: 08:00 Assessment and Plan - Plan 73yoM po (10/02/18) L2-5 revision fusion and left L2/3 discectomy 10/15/18 pod#1 revision of lumbar wound. Keep Lumbar Drain at 5cm below EAC, goal 160/ 12 hours (or 120/8 hour shift). 10/16/18 CSF starting to show yellow-- sample sent to micro/lab dressing dry. continue lumbar drainage until Friday10/17/18 f/u CSF-- negative thus far. MRI/Brain/C-spine/EEG-negative -- appreciate Neurology consult Lumbar drain until Friday, then clamp, then d/c Friday if dressing continues to be dry 10/18/18 Continue lumbar drainage until tomorrow then clamp and observe back dressing. Appreciate Neurology consult re: difficult to explain neuro exam PEG tube yesterday appreciate ID recs/abx re: rash 10/19: lumbar drain clamped continue monitor lumbar wound 10/20: wound and dressing wet but no obvious drainage seen, lumbar drain reopened and continue draining for now 10/21: wound much ore storage drier today following reopening of lumbar drain, will cont lumbar drain for now 10/22: reclamp lumbar drain tonight, Dr. Peter to return to reevaluate wound tomorrow 10/23: incision dry.. will keep clamped GI consult as above given melena today hemoccult sent (iron studies) + daughter gives a GI workup history for chronic anemia including bone marrow and U/LGI that were neg, but these were done before admission, patient receives iron every 2 weeks and normally Hgb 8, here 6 multiple transfusions + PEG tube in last week 10/24: monitor drain exit site incision c/d/i f/u GI recs and f/u H/H as he continues to have tarry stools
[2018-10-24] MEDS ORDERED: Vancomycin Inj 1,500 MG in Sodium Chlor 0.9% Inj 500 ML IV.SIG ONE (13:00)
[2018-10-24] MEDS: Divalproex 125 MG Sprinkles Capsule PO SCH (20:13)
[2018-10-25] MEDS: Pantoprazole Inj 40 MG Vial IV.PUSH SCH ×3 (00:04→23:41)
[2018-10-25] MEDS: Oral Hygiene Kit OROPHARYNG SCH ×5 (00:04→23:41)
[2018-10-25] MEDS: Temazepam 15 MG Capsule PO SCH ×2 (00:39→20:42)
[2018-10-25] MEDS: hydrALAZINE HCl Inj 20 MG/ML Vial IV.PUSH PRN ×4 (02:11→16:08)
[2018-10-25] MEDS: Methadone 10 MG Tablet PO SCH ×2 (04:39→16:07)
[2018-10-25] MEDS: Sodium Chloride 0.9% 2 ML Flush BID IV.FLUSH SCH ×2 (08:15→20:41)
[2018-10-25] MEDS: levoFLOXacin 750 MG Tablet PO SCH (08:15)
[2018-10-25] MEDS: Metoprolol Tartrate 50 MG Tablet PO SCH ×2 (08:15→20:43)
[2018-10-25] MEDS: Chlorhexidine 0.12% Oral Kit 15 ML UDC OROPHARYNG SCH ×2 (08:15→20:40)
[2018-10-25] MEDS: Famotidine PF Inj 20 MG/2 ML Vial IV.PUSH SCH ×2 (08:16→20:41)
[2018-10-25] MEDS: Senna/Docusate Sodium 8.6/50 MG Tablet PO SCH ×2 (08:16→20:41)
--- NOTE | 2018-10-25 08:52 | P.PNCC ---
Subjective Subjective Remarks/Hospital Course: Patient is a 73-year-old male with past medical history significant for hypertension, COPD, Prostate carcinoma, history of previous lumbar laminectomy who came to the [place] emergency department as a transfer from transfer from [facility]. He was accepted by neurosurgery Dr. Peter for acute onset bilateral lower extremity weakness. Patient states that he woke up this morning around 6 AM with numbness and weakness of bilateral lower extremity. On attempt to walk he fell on his face due to weakness. Patient states that the strength got slight better since then. CT scan of the lumbar spine large area of soft attenuation attenuation in the ventral epidural space L2-L3 level suspicious for large disc extrusion with spinal canal stenosis with differential diagnosis involving hemorrhage, there is also at least moderate bilateral neural foraminal stenosis. I evaluate the patient in the ED. He complains of weakness more on the left leg which he is unable to lift. There is generalized numbness but he is able to feel my touch. Critical care was requested to admit the patient to the ICU. Discussed with Dr. Mittal ED and Dr. Peter neurosurgery. A stat MRI of the lumbar spine had been ordered. 10/03: Remains intubated sedated. Remains on Levophed at 10 mcg/min to maintain map above 70. Patient is s/p L2 to L5 posterior spinal fusion, Left L2 /3 microdiscectomy. (MRI showed large herniated disc at L2/3 and flex/ex showing instability at this level). On sedation hold patient is moving all 4 extremities. Hb 8.3 will transfuse 1 unit PRBC due to hypotension 10/04: Remains intubated sedated remains on 8 mcg/min of Levophed to maintain map above 75. Transfusing 1 unit PRBC for hemoglobin 7.4. post-op MRI with significant disc herniation at L2/3. Scheduled for surgery today with Dr. Peter 10/05: Patient underwent surgery on 10/04/2018 for removal residual disc at L2/ 3 right side based on post-op MRI. (s/p L2-5 revision fusion and left L2/3 discectomy on 10/02/18). Today patient's hypoxemia had improved, he was awake but on lightening sedation was very agitated so after a short CPAP trial patient was extubated. Shortly after extubation patient became very agitated requiring four-point restraints and physically nurses having to restrain him. 2 mg IV Ativan was given following which patient became partially responsive with obstructive airway sounds. Shortly became hypoxemic desaturated, became bradycardic in 40s and systolic blood pressure does drop to mid 40s. I was emergently called to the bedside I started bag and mask ventilation immediately. Half ampule of epinephrine was post IV. His heart rate in systolic blood pressure improved with bag and mask ventilation and epinephrine push however he remained unresponsive. Emergently intubated and placed on mechanical ventilation. Once more responsive will start on sedation with Versed. Start Levophed to maintain map above 65. Postintubation chest x-ray is pending. 10/06: Remains intubated heavily sedated for vent synchrony. Patient gets very agitated on holding sedation. We will start Precedex to facilitate vent weaning. Hemoglobin is 7.1, 1 unit of PRBC followed by IV Lasix ordered. 10/07: Agitated. TVs > 1.0 liter spontaneous. Extubated. Patient required reintubation about 5 hours later due to hypoxemia. 10/08: Intubated for the third time last evening. He is unable to tolerate extubation due to a combination of underlying lung disease and severe agitation. If the family wishes to proceed he will require tracheostomy for safe weaning from the ventilator. His baseline mental status is apparently pretty close to normal. 10/09: Tracheostomy placed yesterday. Large amounts of white thick secretions encountered. Chest x-ray continues with a pattern of pulmonary edema. We will continue aggressive twice daily diuretic therapy. Ostensibly plan is to transfer to [facility] at the beginning of next week. One family member is not on board with that yet however. 10/10: Lumbar drain has been placed. Continue spontaneous breathing trials through tracheostomy. Continue discussions with family about transfer to LTAC for long-term weaning. No evidence of infection. 10/11: Effective diuresis but now developing a mild prerenal azotemia. Will hold off for a while and gently hydrate. Now the tracheostomy is performed there is not quite urgency to desiccate his lungs. Hopefully we can work toward a cyst transferred to [facility] after lumbar drain discontinued. 10/12: Following tracheostomy we will continue with attempts at ventilator weaning. Patient has a lumbar drain in place in an attempt to stop a lumbar region wound CSF leak. [facility] will take this patient for long-term weaning once lumbar drain is out. Gentle hydration continues until such time as prerenal azotemia is attenuated. Continue enteral nutrition. 10/13: Remains on mechanical ventilation via tracheostomy. Still on significant sedation due to agitation issues. Lumbar drain continues to drain. Possible surgery tomorrow. 10/14: Remains sedated, on mechanical ventilation via tracheostomy. Scheduled for surgery today for CSF leak lumbar region. 10/15: Remains sedated on mechanical ventilation via tracheostomy. Status post revision of lumbar wound on 10/14 by neurosurgery. Lumbar drain in place and drained 120 cc since yesterday. 10/16: Remains on mechanical ventilation via tracheostomy. Still dealing with agitation on lightening sedation. On Precedex/fentanyl. Received 1 dose of Geodon last night. Also getting as needed Ativan and Seroquel. 10/17: We continue to deal with bouts of agitation which hamper her ability to wean him from the ventilator. Gas exchange remains acceptable. He has required 1 unit of blood transfusion. 10/18: Plan is to clamp drain friday and remove mid-week if lumbar dressing stays dry. Tolerating CPAP today we will try to progress to T piece. 10/19: Patient still intermittently agitated. Per neurology service request we will stop all sedation and analgesia aside from methadone. 10/20: We are unsuccessful getting past spontaneous breathing trials. Still not strong enough to tolerate T-piece. 10/21: Remains encephalopathic, on mechanical ventilation via tracheostomy. Failed CPAP trial this morning. Hemoglobin 6.2. Ordered 2 units PRBCs to be transfused. No overt evidence of blood loss. Temperature 100.7 this morning. Lumbar drain in place and put out 120 cc CSF overnight. Off all sedatives. Tolerating tube feeds via PEG. 10/22: Remains encephalopathic. Has spontaneous eye opening however not following commands. Lumbar drain remains in place. 10/23: Awake, follows occasional commands. Remains on mechanical ventilation via tracheostomy. Melena this morning. Hemoglobin dropped to 7.4. No hypotension. GI reconsulted for evaluation for GI bleed. 1 unit [address] being transfused. Dr. Hamilton from neurology reevaluated patient and is initiating a sleep regimen. 10/24: Patient is opening eyes to minimal voice this morning and tracking with his eyes. He is calm and I have not witnessed any of his customary severe agitation. Modest early prerenal azotemia developing, hydrate gently. Continue spontaneous breathing trials, not tolerating T-piece yet. 10/25: Progressing well on spontaneous breathing trials. Will attempt T-piece trial today. Tracks with eyes and looks around a little better. Objective Vital Signs / I&O: Vital Signs 10/24/18 09:00 10/24/18 09:30 10/24/18 09:34 Temperature 98.4 F 98.6 F 98.6 F Pulse Rate 77 81 80 Respiratory Rate 24 21 23 Blood Pressure 167/97 H 174/123 H 171/120 H Pulse Oximetry 99 99 99 10/24/18 09:36 10/24/18 10:00 10/24/18 10:03 Temperature 98.6 F 98.6 F 98.6 F Pulse Rate 78 81 82 Respiratory Rate 22 29 H 38 H Blood Pressure 169/74 H 185/81 H 195/83 H Pulse Oximetry 99 98 99 10/24/18 10:30 10/24/18 10:43 10/24/18 10:48 Temperature 98.8 F 99.0 F Pulse Rate 104 H 106 H Respiratory Rate 28 H 32 H 16 Blood Pressure 168/78 H 150/70 H Pulse Oximetry 98 98 98 10/24/18 11:00 10/24/18 11:36 10/24/18 12:00 Temperature 99.1 F 99.1 F 99.1 F Pulse Rate 104 H 104 H 95 H Respiratory Rate 26 H 29 H 26 H Blood Pressure 148/69 H Pulse Oximetry 99 98 97 10/24/18 13:00 10/24/18 13:44 10/24/18 13:49 Temperature 98.8 F 99.1 F 99.1 F Pulse Rate 115 H 130 H 130 H Respiratory Rate 39 H 42 H 44 H Blood Pressure 176/85 H 194/92 H Pulse Oximetry 91 L 90 L 90 L 10/24/18 14:00 10/24/18 14:32 10/24/18 14:43 Temperature 99.1 F 99.1 F Pulse Rate 132 H 134 H Respiratory Rate 48 H 41 H 26 H Blood Pressure 186/91 H Pulse Oximetry 90 L 94 L 96 10/24/18 15:00 10/24/18 15:29 10/24/18 16:00 Temperature 99.0 F 98.6 F 98.6 F Pulse Rate 102 H 107 H 102 H Respiratory Rate 31 H 20 12 Blood Pressure 157/73 H 158/74 H 177/81 H Pulse Oximetry 94 L 100 94 L 10/24/18 17:00 10/24/18 17:28 10/24/18 19:00 Temperature 98.6 F 98.8 F 98.8 F Pulse Rate 108 H 104 H 112 H Respiratory Rate 23 23 26 H Blood Pressure 184/84 H 186/88 H 186/85 H Pulse Oximetry 98 99 99 10/24/18 19:48 10/24/18 20:00 10/24/18 20:02 Temperature 98.8 F 98.8 F Pulse Rate 100 H 101 H Respiratory Rate 18 22 24 Blood Pressure 183/79 H Pulse Oximetry 98 98 99 10/24/18 20:32 10/24/18 21:00 10/24/18 21:01 Temperature 98.4 F Pulse Rate 101 H 79 79 Respiratory Rate 25 H 25 H 30 H Blood Pressure 195/88 H Pulse Oximetry 97 99 99 10/24/18 21:31 10/24/18 21:49 10/24/18 22:00 Temperature 99.0 F 98.8 F Pulse Rate 86 86 86 Respiratory Rate 28 H 25 H 24 Blood Pressure 180/82 H 187/81 H Pulse Oximetry 99 100 100 10/24/18 22:01 10/24/18 23:07 10/25/18 00:00 Temperature 98.6 F Pulse Rate 87 87 Respiratory Rate 22 17 Blood Pressure 175/81 H 171/79 H Pulse Oximetry 100 99 100 10/25/18 02:01 10/25/18 02:07 10/25/18 02:31 Temperature 98.4 F Pulse Rate 85 86 91 H Respiratory Rate 15 16 18 Blood Pressure 200/86 H 181/80 H Pulse Oximetry 99 100 98 10/25/18 03:00 10/25/18 03:01 10/25/18 03:18 Temperature 98.4 F Pulse Rate 96 H 96 H Respiratory Rate 18 13 Blood Pressure 180/79 H Pulse Oximetry 98 99 100 10/25/18 03:31 10/25/18 04:00 10/25/18 04:31 Temperature 98.4 F 98.6 F Pulse Rate 98 H 96 H 88 Respiratory Rate 25 H 13 Blood Pressure 171/81 H 185/86 H Pulse Oximetry 99 99 99 10/25/18 05:00 10/25/18 05:01 10/25/18 05:31 Temperature Pulse Rate 92 H 91 H 81 Respiratory Rate 14 18 9 L Blood Pressure 185/83 H Pulse Oximetry 99 99 99 10/25/18 06:00 10/25/18 06:01 10/25/18 07:59 Temperature Pulse Rate 98 H 98 H Respiratory Rate 21 26 H 15 Blood Pressure 158/75 H Pulse Oximetry 99 98 98 Intake & Output 10/24/18 10/25/18 10/25/18 18:59 06:59 18:59 Intake Total 1225 / 1225 1341 / 1341 Output Total 975 / 975 950 / 950 Balance 250 / 250 391 / 391 Weight 95.3 kg Intake: IV 765 / 765 1000 / 1000 LR 1000 mL Inj 1,000 ML @ 20 1000 / 1000 mls/hr IV.CONT .Q24H [facility] Rx#: [id number] NS Inj 250 ML @ 15 mls/hr IV. 250 / 250 SIG ONCE [facility] Rx#:[id number] Vancomycin Inj 1,500 MG In NS 515 / 515 Inj 500 ML @ 250 mls/hr IV.SIG ONCE [facility] Rx#:[id number] Tube Feeding 300 / 300 341 / 341 Tube Irrigant 60 / 60 Water Bolus Amount 100 / 100 Output: Urine Amount (Catheter) 975 / 975 950 / 950 Indwelling Urethral Catheter 975 / 975 950 / 950 Wound Drainage 0 / 0 Posterior Lumbar 0 / 0 Other: Date of Last Bowel Movement 10/24/18 10/24/18 # Bowel Movements 2 0 Result Diagrams: 10/24/18 11:10 10/22/18 04:10 Objective Remarks: GENERAL: Elderly gentleman, ongoing vent weaning trials. No sedation. SKIN: Warm and dry HEAD: Normocephalic. Atraumatic EYES: No injection or drainage. No conjunctival icterus or injection ENT: Neck supple. Tracheostomy in place, site is clean and dry CARDIOVASCULAR: Regular rate and rhythm, S1-S2 normal, no murmurs. No JVD RESPIRATORY: Good bilateral air movement, generally clear. Secretions controllable. GASTROINTESTINAL: Abdomen soft, non-tender, nondistended. Bowel sounds present. MUSCULOSKELETAL: No cyanosis, minimal edema. Warm, well-perfused. NEURO: On mechanical ventilation via tracheostomy. Neurology has started antipsychotics. Moves all 4 limbs spontaneously. 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 Code(s): M47.16 - Other spondylosis with myelopathy, lumbar region Status: Acute (2) Weakness of lower extremity Code(s): R29.898 - Other symptoms and signs involving the musculoskeletal system Status: Acute (3) COPD (chronic obstructive pulmonary disease) Code(s): J44.9 - Chronic obstructive pulmonary disease, unspecified Status: Chronic (4) History of prostate cancer Code(s): Z85.46 - Personal history of malignant neoplasm of prostate Status: Chronic (5) History of hypertension Code(s): Z86.79 - Personal history of other diseases of the circulatory system Status: Chronic - Assessment and Plan Plan: ASSESSMENT: Acute hypoxemic hypercarbic/hypoxemic respiratory failure Respiratory arrest after receiving Ativan on 10/05/2018 Hypotension now resolved Lumbar cord compression likely secondary to large herniated disc, with lower extremity weakness Right L2/L3 discectomy 10/04/2018 for removal residual disc at right L2/3 s/p L2-5 revision fusion and left L2/3 discectomy on 10/02/18. Hypotension on pressors History of previous lumbar posterior fusion and microdiscectomy by Dr. Hansen Acute on chronic kidney disease Anemia requiring transfusion Suspected GI bleed History of prostate cancer COPD History of hypertension PLAN: NEURO: -MRI showing large herniated disc at L2/3 and flex/ex showing instability at this level. -s/p L2-5 revision fusion and left L2/3 discectomy on 10/02/18. -post-op MRI with significant disc herniation at right L2/3 despite resection, Right L2/L3 discectomy 10/04/2018 - Lumbar drain clamped, in place for CSF leak. Status post lumbar wound revision on 10/14 by neurosurgery -Continue to hold medications for agitation. -Hold all sedation and antipsychotics 10/19 -Test clamp lumbar drain started 10/19 -Sleep regimen being initiated by Dr. Hamilton, Seroquel restarted 10/23 RESP: -Extubated 10/05/18 however became unresponsive and hypoxic after receiving Ativan for agitation -Emergently reintubated and placed on mechanical ventilation -Currently on PRVC/AC -DuoNeb every 6 hours scheduled and as needed -Extubated again 10/07 -Required reintubation 5 hours after extubation due to secretions and hypoxemia. -Tracheostomy performed 10/08 -Continue spontaneous breathing trials. Attempt T piece today 10/25 CV: -Cardiac decompensation most likely secondary to pulmonary problems, hypoxemia -Gas exchange acceptable -Fluid balance remains about right now GI: -Tube feedings via PEG - May require colonoscopy. - Bowel regimen instituted : -Monitor renal function closely. -Strict intake output, follow BUN and creatinine ID: -Sputum culture, stop cefepime due to rash, switched to IV Azactam and vancomycin due to rash on 10/16. -Adjust per ID consult for antibiotic management -10/19 Sputum growing gram-negative rods, one positive blood culture with [facility]. Antibiotics adjusted by infectious disease service HEME: -Monitor CBC, coags -Ordered 2 units PRBCs to be transfused for hemoglobin 6.2 on 10/21. Melena noted on 10/23 with drop in hemoglobin. 1 unit PRBCs ordered to be transfused on 10/23 -Per discussion with patient's daughter on 10/21 he has had extensive workup for anemia with an oncologist including bone marrow, GI workup and was being treated with IV iron however no obvious source of blood loss on previous workup per daughter. -Hemoglobin now stable ENDO: -Electrolyte replacement per protocol PROPH: -Bilateral lower extremity SCDs. No chemical DVT prophylaxis due to evidence of recent GI bleed LINES: -Utilize peripheral IVs, central line as needed -PT evaluate and treat Overall impression impression: We will continue to try to clean up his lungs and strive for ventilator weaning. Continue discussions with daughter about possible transfer to [facility].
--- NOTE | 2018-10-25 11:15 | P.PNNS ---
Subjective Interval history: Wound dry- drain dc'd yesterday Hgb stable at 8 yesterday - black tarry stools continued x 3 -- GI following -- daily Hgb Physical Exam Vital signs: Vital Signs 10/24/18 11:36 10/24/18 12:00 10/24/18 13:00 Temperature 99.1 F 99.1 F 98.8 F Pulse Rate 104 H 95 H 115 H Respiratory Rate 29 H 26 H 39 H Blood Pressure 148/69 H Pulse Oximetry 98 97 91 L 10/24/18 13:44 10/24/18 13:49 10/24/18 14:00 Temperature 99.1 F 99.1 F 99.1 F Pulse Rate 130 H 130 H 132 H Respiratory Rate 42 H 44 H 48 H Blood Pressure 176/85 H 194/92 H Pulse Oximetry 90 L 90 L 90 L 10/24/18 14:32 10/24/18 14:43 10/24/18 15:00 Temperature 99.1 F 99.0 F Pulse Rate 134 H 102 H Respiratory Rate 41 H 26 H 31 H Blood Pressure 186/91 H 157/73 H Pulse Oximetry 94 L 96 94 L 10/24/18 15:29 10/24/18 16:00 10/24/18 17:00 Temperature 98.6 F 98.6 F 98.6 F Pulse Rate 107 H 102 H 108 H Respiratory Rate 20 12 23 Blood Pressure 158/74 H 177/81 H 184/84 H Pulse Oximetry 100 94 L 98 10/24/18 17:28 10/24/18 19:00 10/24/18 19:48 Temperature 98.8 F 98.8 F Pulse Rate 104 H 112 H Respiratory Rate 23 26 H 18 Blood Pressure 186/88 H 186/85 H Pulse Oximetry 99 99 98 10/24/18 20:00 10/24/18 20:02 10/24/18 20:32 Temperature 98.8 F 98.8 F Pulse Rate 100 H 101 H 101 H Respiratory Rate 22 24 25 H Blood Pressure 183/79 H Pulse Oximetry 98 99 97 10/24/18 21:00 10/24/18 21:01 10/24/18 21:31 Temperature 98.4 F 99.0 F Pulse Rate 79 79 86 Respiratory Rate 25 H 30 H 28 H Blood Pressure 195/88 H 180/82 H Pulse Oximetry 99 99 99 10/24/18 21:49 10/24/18 22:00 10/24/18 22:01 Temperature 98.8 F Pulse Rate 86 86 87 Respiratory Rate 25 H 24 22 Blood Pressure 187/81 H 175/81 H Pulse Oximetry 100 100 100 10/24/18 23:07 10/25/18 00:00 10/25/18 02:01 Temperature 98.6 F 98.4 F Pulse Rate 87 85 Respiratory Rate 17 15 Blood Pressure 171/79 H Pulse Oximetry 99 100 99 10/25/18 02:07 10/25/18 02:31 10/25/18 03:00 Temperature 98.4 F Pulse Rate 86 91 H 96 H Respiratory Rate 16 18 18 Blood Pressure 200/86 H 181/80 H Pulse Oximetry 100 98 98 10/25/18 03:01 10/25/18 03:18 10/25/18 03:31 Temperature 98.4 F Pulse Rate 96 H 98 H Respiratory Rate 13 25 H Blood Pressure 180/79 H 171/81 H Pulse Oximetry 99 100 99 10/25/18 04:00 10/25/18 04:31 10/25/18 05:00 Temperature 98.6 F Pulse Rate 96 H 88 92 H Respiratory Rate 13 14 Blood Pressure 185/86 H Pulse Oximetry 99 99 99 10/25/18 05:01 10/25/18 05:31 10/25/18 06:00 Temperature Pulse Rate 91 H 81 98 H Respiratory Rate 18 9 L 21 Blood Pressure 185/83 H Pulse Oximetry 99 99 99 10/25/18 06:01 10/25/18 06:31 10/25/18 07:00 Temperature 98.6 F 98.6 F Pulse Rate 98 H 102 H 95 H Respiratory Rate 26 H 26 H 16 Blood Pressure 158/75 H 155/69 H Pulse Oximetry 98 99 98 10/25/18 07:01 10/25/18 07:31 02 07:59 Temperature 98.6 F 98.8 F Pulse Rate 100 H 96 H Respiratory Rate 27 H 27 H 15 Blood Pressure 152/67 H 159/74 H Pulse Oximetry 99 98 98 10/25/18 08:00 10/25/18 08:01 10/25/18 08:31 Temperature 98.8 F 98.8 F 98.8 F Pulse Rate 100 H 101 H 89 Respiratory Rate 30 H 25 H 38 H Blood Pressure 154/72 H 166/74 H Pulse Oximetry 98 99 99 10/25/18 09:00 10/25/18 09:01 10/25/18 09:31 Temperature 98.8 F 98.8 F Pulse Rate 75 73 80 Respiratory Rate 28 H 25 H 32 H Blood Pressure 178/77 H 178/77 H 183/80 H Pulse Oximetry 98 99 98 10/25/18 10:00 10/25/18 10:01 Temperature 98.6 F Pulse Rate 76 74 Respiratory Rate 16 17 Blood Pressure 180/79 H 180/79 H Pulse Oximetry 99 99 Intake & Output 10/24/18 10/25/18 10/25/18 18:59 06:59 18:59 Intake Total 1225 / 1225 1341 / 1341 Output Total 975 / 975 950 / 950 Balance 250 / 250 391 / 391 Weight 95.3 kg Intake: IV 765 / 765 1000 / 1000 LR 1000 mL Inj 1,000 ML @ 20 1000 / 1000 mls/hr IV.CONT .Q24H [facility] Rx#: [id number] NS Inj 250 ML @ 15 mls/hr IV. 250 / 250 SIG ONCE [facility] Rx#:[id number] Vancomycin Inj 1,500 MG In NS 515 / 515 Inj 500 ML @ 250 mls/hr IV.SIG ONCE ONE Rx#:[id number] Tube Feeding 300 / 300 341 / 341 Tube Irrigant 60 / 60 Water Bolus Amount 100 / 100 Output: Urine Amount (Catheter) 975 / 975 950 / 950 Indwelling Urethral Catheter 975 / 975 950 / 950 Wound Drainage 0 / 0 Posterior Lumbar 0 / 0 Other: Date of Last Bowel Movement 10/24/18 10/24/18 10/24/18 # Bowel Movements 2 0 Narrative: looks at examiner-- follows commands in upper extremities-- moves legs less agitated incision c/d/i - Urinary Catheter Management Indwelling Urethral Catheter Cath placed during this visit: yes, but has since been removed by the nurse Reason for continuing: Hourly intake/output Insertion date: 10/22/18 Insertion time: 08:05 Removal date: 10/22/18 Removal time: 08:00 Assessment and Plan - Plan 73yoM po (10/02/18) L2-5 revision fusion and left L2/3 discectomy 10/15/18 pod#1 revision of lumbar wound. Keep Lumbar Drain at 5cm below EAC, goal 160/ 12 hours (or 120/8 hour shift). 10/16/18 CSF starting to show yellow-- sample sent to micro/lab dressing dry. continue lumbar drainage until Friday10/17/18 f/u CSF-- negative thus far. MRI/Brain/C-spine/EEG-negative -- appreciate Neurology consult Lumbar drain until Friday, then clamp, then d/c Friday if dressing continues to be dry 10/18/18 Continue lumbar drainage until tomorrow then clamp and observe back dressing. Appreciate Neurology consult re: difficult to explain neuro exam PEG tube yesterday appreciate ID recs/abx re: rash 10/19: lumbar drain clamped continue monitor lumbar wound 10/20: wound and dressing wet but no obvious drainage seen, lumbar drain reopened and continue draining for now 10/21: wound much impregnator and drier today following reopening of lumbar drain, will cont lumbar drain for now 10/22: reclamp lumbar drain tonight, Dr. Peter to return to reevaluate wound tomorrow 10/23: incision dry.. will keep clamped GI consult as above given melena today hemoccult sent (iron studies) + daughter gives a GI workup history for chronic anemia including bone marrow and U/LGI that were neg, but these were done before admission, patient receives iron every 2 weeks and normally Hgb 8, here 6 multiple transfusions + PEG tube in last week 10/24: monitor drain exit site incision c/d/i f/u GI recs and f/u H/H as he continues to have tarry stools 10/25: drain out - incision dry -- sutures to be removed on 11/04 -- clear from Neurosurgical point of view Hgb stable at 8 yesterday but three black tarry stools after that -- daily Hgb - - GI following -- PEG placed ~1 week ago
[2018-10-25 13:48] LABS: Hemoglobin 7.8 gm/dL (13.0-17.0); Mean Corpuscular HGB Conc 33.8 % (32.0-36.0); Mean Corpuscular Hemoglobin 30.2 pg (27.0-34.0); Mean Corpuscular Volume 89.3 fL (80.0-100.0); Mean Platelet Volume 8.3 fL (7.0-11.0); Platelet Count 253 th/mm3 (150-450); Red Blood Count 2.58 mil/mm3 (4.50-5.90); Red Cell Distribution Width 17.2 % (11.6-17.2)
[2018-10-25 14:21] LABS: Baso % (Auto) 0.3 % (0.0-2.0); Eos # (Auto) 0.2 th/mm3 (0.0-0.4); Eos % (Auto) 3.3 % (0.0-4.0); Hematocrit 22.4 % (39.0-51.0); Hemoglobin 7.6 gm/dL (13.0-17.0); Lymph # (Auto) 0.3 th/mm3 (1.0-4.8); Lymph % (Auto) 5.7 % (9.0-44.0); Mean Corpuscular HGB Conc 33.7 % (32.0-36.0); Mean Corpuscular Hemoglobin 30.3 pg (27.0-34.0); Mean Corpuscular Volume 89.9 fL (80.0-100.0); Mean Platelet Volume 8.2 fL (7.0-11.0); Mono # (Auto) 0.5 th/mm3 (0.0-0.9); Mono % (Auto) 9.3 % (0.0-8.0); Neut # (Auto) 4.8 th/mm3 (1.8-7.7); Neut % (Auto) 81.4 % (16.0-70.0); Platelet Count 251 th/mm3 (150-450); Red Cell Distribution Width 17.1 % (11.6-17.2); White Blood Count 5.9 th/mm3 (4.0-11.0)
[2018-10-25] MEDS: Divalproex 125 MG Sprinkles Capsule PO SCH (20:40)
[2018-10-26] MEDS: Methadone 10 MG Tablet PO SCH ×2 (04:29→16:50)
[2018-10-26] MEDS: Oral Hygiene Kit OROPHARYNG SCH ×4 (04:29→23:02)
[2018-10-26 04:32] LABS: Baso % (Auto) 0.8 % (0.0-2.0); Eos # (Auto) 0.2 th/mm3 (0.0-0.4); Eos % (Auto) 4.3 % (0.0-4.0); Hematocrit 22.4 % (39.0-51.0); Hemoglobin 7.7 gm/dL (13.0-17.0); Lymph # (Auto) 0.4 th/mm3 (1.0-4.8); Lymph % (Auto) 7.6 % (9.0-44.0); Mean Corpuscular HGB Conc 34.5 % (32.0-36.0); Mean Corpuscular Hemoglobin 30.6 pg (27.0-34.0); Mean Corpuscular Volume 88.8 fL (80.0-100.0); Mean Platelet Volume 8.3 fL (7.0-11.0); Mono # (Auto) 0.6 th/mm3 (0.0-0.9); Mono % (Auto) 10.8 % (0.0-8.0); Neut # (Auto) 4.4 th/mm3 (1.8-7.7); Neut % (Auto) 76.5 % (16.0-70.0); Platelet Count 260 th/mm3 (150-450); Red Blood Count 2.52 mil/mm3 (4.50-5.90); Red Cell Distribution Width 17.6 % (11.6-17.2); White Blood Count 5.7 th/mm3 (4.0-11.0)
[2018-10-26 04:41] LABS: Albumin 1.6 g/dL (3.4-5.0); Anion Gap 5 meq/L (5-15); Aspartate Aminotransferase 31 U/L (15-37); Blood Urea Nitrogen 41 mg/dL (7-18); Calcium 7.7 mg/dL (8.5-10.1); Carbon Dioxide 29.7 meq/L (21.0-32.0); Chloride 116 meq/L (98-107); Glomerular Filtration Rate 57 mL/min (>89); Glucose,Random 116 mg/dL (74-106); Potassium 3.1 meq/L (3.5-5.1); Sodium 151 meq/L (136-145)
[2018-10-26 04:44] LABS: Alanine Aminotransferase 20 U/L (12-78); Alkaline Phosphatase 100 U/L (45-117); Total Protein 5.4 g/dL (6.4-8.2)
[2018-10-26] MEDS: hydrALAZINE HCl Inj 20 MG/ML Vial IV.PUSH PRN ×3 (06:05→16:51)
--- NOTE | 2018-10-26 08:02 | P.PNNPSY ---
- Behavior Mild: Impulsive/agitated - Progress Notes/Response to Treatment Contents of Sessions: Adjustment, Level of consciousness Time with Patient: 30 minutes Premorbid Psychological Status: Premorbid Cognitive, Emotional and Behavioral Status: Stable. 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 The patient has no prior psychiatric difficulties, as described above. Substance abuse history is unremarkable. Behavioral Reactions of Patient and Family/Support System: Stable. The patient s family is experiencing ongoing issues of adjustment given the nature of the injury, and this aspect of recovery will require ongoing monitoring. Emotional/Behavioral Status of Patient and Family/Support System: Stable. Pertinent issues, if appropriate to this patients clinical care, are described in detail above. Maximizing Acute Care Outcome: It is recommended that the patient be monitored for emergent behavioral impulsivity as the medical condition evolves. This patients neuropathological challenges may limit rehabilitation potential going forward, and these challenges will require specialized therapeutic skills to maximize outcome. At this point in the recovery process, the patient does not have cognitive capacity as the patient is unable to understand a situation and its likely consequences, nor is the patient able to manipulate information rationally. Cognitive capacity will be assessed throughout the recovery process. Anticipated Problems: Ongoing areas of concern will include behavioral impulsivity, lack of insight and judgment, which is expected to improve with time and treatment. Suggest continued treatment with current pharmacological approach, unless medically contraindicated. His recent ABS scores reflect improvement as such in terms of his neurobehavioral issues. Treatment Plan: This clinician will continue to follow with you throughout the course of this patients critical care treatment, and I will be available to meet with the patients family/support system to facilitate their understanding and the ongoing care of their family member. The goals of neuropsychological intervention shall be both educational and supportive to the family/support system as is deemed clinically appropriate. Disinhibition Score: 24.50 Aggression Score: 14.00 Lability Score: 14.00 Agitated Behavior Total Score: 20 Impression: 73 year old male with neurocognitive and neurobehavioral issues, possibly ICU delirium. Progress Note Narrative: Day 24. Neurology reevaluated patient and initiated a sleep regimen. The patient's agitation/restless has improved. ABS of 20 (24.5,14,14), down from 23T on day 21. He has been started on Risperdal and Restoril. I will follow. - Diagnosis (1) Major neurocognitive disorder due to another medical condition with behavioral disturbance Status: Acute
[2018-10-26] MEDS: levoFLOXacin 750 MG Tablet PO SCH (08:11)
[2018-10-26] MEDS: Famotidine PF Inj 20 MG/2 ML Vial IV.PUSH SCH ×2 (08:11→20:10)
[2018-10-26] MEDS: Metoprolol Tartrate 50 MG Tablet PO SCH ×3 (08:11→21:37)
[2018-10-26] MEDS: Senna/Docusate Sodium 8.6/50 MG Tablet PO SCH ×2 (08:11→20:10)
[2018-10-26] MEDS: Sodium Chloride 0.9% 2 ML Flush BID IV.FLUSH SCH ×2 (08:12→20:10)
[2018-10-26] MEDS: Chlorhexidine 0.12% Oral Kit 15 ML UDC OROPHARYNG SCH ×2 (08:12→20:09)
--- NOTE | 2018-10-26 08:22 | P.PNNEU ---
Subjective Subjective Comments: not sleep all noc Active Medications: Active Medications Acetaminophen (Tylenol) 650 mg PO Q6H PRN PRN Reason: PAIN 1-10 AND/OR FEVER >101F Last Admin: 10/22/18 20:52 Dose: 650 mg Al Hydroxide/Mg Hydroxide (Milk Of Magnbecca Liq) 30 ml PO Q12H PRN PRN Reason: Mild Constipation Last Admin: 10/15/18 06:44 Dose: 30 ml Albuterol (Albuterol Neb (Prn)) 2.5 mg NEB Q2HR NEB PRN PRN Reason: SHORTNESS OF BREATH/WHEEZING Last Admin: 10/22/18 23:52 Dose: 2.5 mg Bisacodyl (Dulcolax Supp) 10 mg RECTAL DAILY PRN PRN Reason: SEVERE CONSITIPATION Last Admin: 10/16/18 00:38 Dose: 10 mg Chlordiazepoxide (Librium) 5 mg PO Q12H [facility] Last Admin: 10/18/18 21:22 Dose: 5 mg Chlorhexidine Gluconate (Peridex 0.12% Oral Kit) 15 ml OROPHARYNG BID@0800, 2000 [facility] Last Admin: 10/26/18 08:12 Dose: 15 ml Clonidine HCl (Catapres) 0.1 mg NG/OG Q6H PRN PRN Reason: SYSTOLIC BP GREATER THAN 160 Last Admin: 10/25/18 17:51 Dose: 0.1 mg Diphenhydramine HCl (Benadryl Inj) 25 mg IV.PUSH Q6HR [facility] Last Admin: 10/19/18 05:00 Dose: 25 mg Divalproex Sodium (Depakote Sprinkles) 1,500 mg PO HS [facility] Last Admin: 10/25/18 20:40 Dose: 1,500 mg Famotidine (Pepcid Pf Inj) 20 mg IV.PUSH Q12HR [facility] Last Admin: 10/26/18 08:11 Dose: 20 mg Furosemide (Lasix Inj) 40 mg IV.PUSH BID@0900,1800 [facility] Last Admin: 10/11/18 08:53 Dose: 40 mg Hydralazine HCl (Apresoline Inj) 20 mg IV.PUSH Q2H PRN PRN Reason: SBP > 160 Last Admin: 10/26/18 06:05 Dose: 20 mg Fentanyl (Fentanyl 10 Mcg/Ml Premix Drip) 2,500 mcg in 250 mls @ 5 mls/hr IV.SIG TITRATE PRN; Protocol PRN Reason: Per Protocol Last Titration: 10/17/18 17:22 Dose: Infused Norepinephrine Bitartrate (Levophed-Dextrose 4 Mg/250 Ml Drip) 4 mg in 250 mls @ 7.5 mls/hr IV.SIG TITRATE PRN; Protocol PRN Reason: Per Protocol Last Titration: 10/11/18 07:00 Dose: 0 mcg/min, 0 mls/hr Propofol (Diprivan 1000 Mg/100 Ml Inj) 1,000 mg in 100 mls @ 2.835 mls/hr IV.CONT TITRATE PRN; Protocol PRN Reason: Per Protocol Last Titration: 10/19/18 11:20 Dose: Infused Midazolam HCl (Versed Inj) 100 mg in 100 mls @ 2 mls/hr IV.CONT TITRATE PRN; Protocol PRN Reason: PER PROTOCOL Last Titration: 10/17/18 17:26 Dose: Infused Dexmedetomidine HCl 800 mcg/ (Sodium Chloride) 100 mls @ 2.29 mls/hr IV.CONT TITRATE PRN; Protocol PRN Reason: Per Protocol Last Titration: 10/19/18 11:20 Dose: Infused Dexmedetomidine HCl 200 mcg/ (Sodium Chloride) 50 mls @ 4.21 mls/hr IV.CONT TITRATE PRN; Protocol PRN Reason: Per Protocol Lactated Ringer's (Lr 1000 Ml Inj) 1,000 mls @ 20 mls/hr IV.CONT .Q24H [facility] Last Admin: 10/25/18 10:30 Dose: Not Given Lactulose (Lactulose Liq) 30 ml PO DAILY PRN PRN Reason: SEVERE CONSITIPATION Last Admin: 10/15/18 19:44 Dose: 30 ml Levofloxacin (Levaquin) 750 mg PO DAILY [facility] Last Admin: 10/26/18 08:11 Dose: 750 mg Lorazepam (Ativan Inj) 0.5 mg IV.PUSH Q6H PRN PRN Reason: SEVERE AGITATION Last Admin: 10/17/18 13:41 Dose: 0.5 mg Methadone HCl (Dolophine) 10 mg PO Q12H [facility] Last Admin: 10/26/18 04:29 Dose: 10 mg Metoprolol Tartrate (Lopressor Inj) 5 mg IV.PUSH Q4H PRN PRN Reason: Pulse > 120 Last Admin: 10/22/18 14:25 Dose: 5 mg Metoprolol Tartrate (Lopressor) 50 mg PO BID [facility] Last Admin: 10/26/18 08:11 Dose: 50 mg Miscellaneous (Pill Splitter) 1 each OTHER UNSCH PRN PRN Reason: PILL SPLITTER Miscellaneous Medication () 1 each OROPHARYNG 0000,0400,1200,1600 [facility] Last Admin: 10/26/18 04:29 Dose: 1 each Morphine Sulfate (Morphine Inj) 2 mg IV.PUSH Q4H PRN PRN Reason: 6-10 pain Last Admin: 10/07/18 21:47 Dose: 2 mg Oxycodone HCl (Roxicodone Intensol Liq) 10 mg PO Q6H [facility] Last Admin: 10/19/18 05:00 Dose: 10 mg Pantoprazole Sodium (Protonix Inj) 40 mg IV.PUSH Q12H [facility] Last Admin: 10/25/18 23:41 Dose: 40 mg Pharmacy Profile Note (Vancomycin Consult Pharmacy) 1 each OTHER UNSCH PRN PRN Reason: Pharmacy to dose Quetiapine Fumarate (Seroquel) 150 mg PO BID [facility] Last Admin: 10/18/18 20:02 Dose: 150 mg Risperidone (Risperdal) 0.5 mg PO [facility] Last Admin: 10/25/18 20:42 Dose: 0.5 mg Senna/Docusate Sodium (Shazia-Colace) 1 tab PO BID [facility] Last Admin: 10/26/18 08:11 Dose: 1 tab Sennosides (Senokot) 17.2 mg PO Q12H PRN PRN Reason: Moderate Constipation Sodium Chloride (Ns Flush) 2 ml IV.FLUSH BID [facility] Last Admin: 10/26/18 08:12 Dose: 2 ml Sodium Chloride (Ns Flush) 2 ml IV.FLUSH PRN PRN PRN Reason: FLUSH AFTER USING IV ACCESS Last Admin: 10/23/18 05:40 Dose: 2 ml Temazepam (Restoril) 15 mg PO [facility] Last Admin: 10/25/18 20:42 Dose: 15 mg Terbutaline Sulfate (Brethine Inj) 1 mg SQ UNSCH PRN PRN Reason: For Extravasation Ziprasidone (Geodon Inj) 20 mg IM Q12H PRN PRN Reason: SEVERE AGITATION Last Admin: 10/17/18 12:45 Dose: 20 mg Allergies/Adverse Reactions: Allergies Allergy/AdvReac Type Severity Reaction Status Date / Time No Known Allergies Unknown Uncoded 10/27/17 16:04 Physical Exam Vital signs: Vital Signs 10/25/18 08:31 10/25/18 09:00 10/25/18 09:01 Temperature 98.8 F 98.8 F 98.8 F Pulse Rate 89 75 73 Respiratory Rate 38 H 28 H 25 H Blood Pressure 166/74 H 178/77 H 178/77 H Pulse Oximetry 99 98 99 10/25/18 09:31 10/25/18 10:00 10/25/18 10:01 Temperature 98.6 F Pulse Rate 80 76 74 Respiratory Rate 32 H 16 17 Blood Pressure 183/80 H 180/79 H 180/79 H Pulse Oximetry 98 99 99 10/25/18 10:31 10/25/18 11:00 10/25/18 11:01 Temperature 97.2 F L Pulse Rate 82 97 H 97 H Respiratory Rate 15 42 H 33 H Blood Pressure 174/76 H 175/74 H Pulse Oximetry 100 98 98 10/25/18 11:26 10/25/18 11:31 10/25/18 12:00 Temperature 97.5 F L 99.1 F 99.0 F Pulse Rate 90 94 H 89 Respiratory Rate 17 27 H 20 Blood Pressure 175/75 H 169/74 H 169/74 H Pulse Oximetry 98 97 98 10/25/18 12:01 10/25/18 12:20 10/25/18 12:31 Temperature 99.0 F 99.0 F 99.0 F Pulse Rate 88 80 84 Respiratory Rate 21 17 23 Blood Pressure 176/76 H 164/75 H 147/59 H Pulse Oximetry 98 99 98 10/25/18 13:00 10/25/18 13:01 10/25/18 13:31 Temperature 99.1 F 99.1 F 99.1 F Pulse Rate 94 H 96 H 102 H Respiratory Rate 37 H 29 H 32 H Blood Pressure 169/73 H 184/81 H Pulse Oximetry 99 99 97 10/25/18 14:00 10/25/18 14:01 10/25/18 14:31 Temperature 99.1 F 99.1 F 99.0 F Pulse Rate 92 H 92 H 95 H Respiratory Rate 14 16 25 H Blood Pressure 177/76 H 178/81 H Pulse Oximetry 98 98 97 10/25/18 15:00 10/25/18 15:01 10/25/18 15:24 Temperature 99.1 F 99.1 F Pulse Rate 107 H 108 H Respiratory Rate 24 32 H 16 Blood Pressure 169/80 H Pulse Oximetry 98 98 98 10/25/18 15:31 10/25/18 16:00 10/25/18 16:01 Temperature 99.3 F 99.3 F 99.3 F Pulse Rate 98 H 107 H 103 H Respiratory Rate 9 L 25 H 22 Blood Pressure 181/79 H 198/86 H Pulse Oximetry 98 97 98 10/25/18 16:19 10/25/18 16:31 10/25/18 17:00 Temperature 99.3 F 99.3 F 99.3 F Pulse Rate 101 H 104 H 95 H Respiratory Rate 14 24 14 Blood Pressure 175/75 H 172/75 H Pulse Oximetry 97 97 97 10/25/18 17:01 10/25/18 17:31 10/25/18 18:00 Temperature 99.3 F 99.3 F 99.3 F Pulse Rate 100 H 100 H 83 Respiratory Rate 26 H 19 16 Blood Pressure 169/77 H 169/74 H 140/64 Pulse Oximetry 97 98 97 10/25/18 18:01 10/25/18 18:31 10/25/18 19:00 Temperature 99.3 F 99.5 F 99.5 F Pulse Rate 83 106 H 109 H Respiratory Rate 16 19 23 Blood Pressure 140/64 183/84 H Pulse Oximetry 97 97 97 10/25/18 19:01 10/25/18 19:31 10/25/18 19:32 Temperature 99.5 F 99.7 F H Pulse Rate 108 H 115 H Respiratory Rate 27 H 36 H 21 Blood Pressure 166/77 H 178/78 H Pulse Oximetry 97 97 99 10/25/18 20:00 10/25/18 20:01 10/25/18 20:31 Temperature 99.9 F H 99.9 F H 99.9 F H Pulse Rate 111 H 107 H 122 H Respiratory Rate 24 24 48 H Blood Pressure 163/75 H 187/86 H Pulse Oximetry 98 97 97 10/25/18 21:00 10/25/18 21:01 10/25/18 21:31 Temperature 100.0 F H 100.0 F H 100.2 F H Pulse Rate 104 H 108 H 63 Respiratory Rate 21 21 21 Blood Pressure 164/77 H 104/52 L Pulse Oximetry 97 97 95 10/25/18 22:00 10/25/18 22:01 10/25/18 22:31 Temperature 100.0 F H 100.0 F H 99.9 F H Pulse Rate 66 65 68 Respiratory Rate 22 22 18 Blood Pressure 106/53 L 114/55 L Pulse Oximetry 96 96 97 10/25/18 23:00 10/25/18 23:01 10/25/18 23:31 Temperature 99.7 F H 99.7 F H 99.5 F Pulse Rate 69 68 68 Respiratory Rate 15 17 17 Blood Pressure 119/58 L 123/59 L Pulse Oximetry 97 97 97 10/25/18 23:40 10/26/18 00:00 10/26/18 00:01 Temperature 99.3 F 99.3 F Pulse Rate 65 65 Respiratory Rate 16 16 15 Blood Pressure 129/62 Pulse Oximetry 98 98 98 10/26/18 00:31 10/26/18 01:00 10/26/18 01:01 Temperature 99.1 F 99.1 F 99.1 F Pulse Rate 65 66 65 Respiratory Rate 17 15 15 Blood Pressure 132/60 139/65 Pulse Oximetry 98 98 98 10/26/18 01:31 10/26/18 01:36 10/26/18 02:00 Temperature 99.0 F 99.0 F 99.0 F Pulse Rate 77 81 93 H Respiratory Rate 13 18 29 H Blood Pressure 174/77 H 157/69 H Pulse Oximetry 97 98 99 10/26/18 02:01 10/26/18 02:03 10/26/18 02:31 Temperature 99.0 F 99.1 F 99.1 F Pulse Rate 95 H 93 H 98 H Respiratory Rate 26 H 17 36 H Blood Pressure 184/81 H 176/79 H 189/86 H Pulse Oximetry 98 97 97 10/26/18 03:00 10/26/18 03:01 10/26/18 03:27 Temperature 99.1 F 99.3 F Pulse Rate 98 H 94 H Respiratory Rate 24 21 14 Blood Pressure 181/83 H Pulse Oximetry 97 89 L 100 10/26/18 03:31 10/26/18 04:00 10/26/18 04:01 Temperature 99.3 F 99.1 F 99.1 F Pulse Rate 86 93 H 96 H Respiratory Rate 20 19 27 H Blood Pressure 184/84 H 187/86 H Pulse Oximetry 99 99 99 10/26/18 04:31 10/26/18 05:00 10/26/18 05:01 Temperature 99.0 F 99.1 F 99.3 F Pulse Rate 104 H 101 H 101 H Respiratory Rate 32 H 26 H 26 H Blood Pressure 189/87 H 196/87 H Pulse Oximetry 98 99 99 10/26/18 05:31 10/26/18 06:00 10/26/18 06:02 Temperature 99.1 F 99.3 F 99.3 F Pulse Rate 107 H 108 H 107 H Respiratory Rate 34 H 29 H 24 Blood Pressure 198/86 H 193/88 H 188/89 H Pulse Oximetry 100 100 100 10/26/18 06:17 10/26/18 06:32 10/26/18 07:39 Temperature 99.3 F 99.3 F Pulse Rate 104 H 86 Respiratory Rate 19 16 20 Blood Pressure 172/79 H 170/76 H Pulse Oximetry 97 95 98 Intake & Output 10/25/18 10/26/18 10/26/18 18:59 06:59 18:59 Intake Total 651 / 651 594 / 594 Output Total 750 / 750 700 / 700 Balance -99 / -99 -106 / -106 Weight 93.7 kg Intake: Tube Feeding 551 / 551 474 / 474 Water Bolus Amount 100 / 100 120 / 120 Output: Urine Amount (Catheter) 750 / 750 700 / 700 Indwelling Urethral Catheter 750 / 750 700 / 700 Other: Date of Last Bowel Movement 10/24/18 10/24/18 # Bowel Movements 0 Narrative: not follow commands good eye contact grunts only - Urinary Catheter Management Indwelling Urethral Catheter Cath placed during this visit: yes, but has since been removed by the nurse Reason for continuing: Acute urinary retention Insertion date: 10/22/18 Insertion time: 08:05 Removal date: 10/22/18 Removal time: 08:00 Objective Laboratory Results - last 24 hr 10/25/18 10/25/18 10/26/18 12:46 13:55 03:07 WBC 6.0 5.9 5.7 RBC 2.58 L 2.50 L 2.52 L Hgb 7.8 L 7.6 L 7.7 L Hct 23.0 L 22.4 L 22.4 L MCV 89.3 89.9 88.8 MCH 30.2 30.3 30.6 MCHC 33.8 33.7 34.5 RDW 17.2 17.1 17.6 H Plt Count 253 251 260 MPV 8.3 8.2 8.3 Neut % (Auto) 81.4 H 76.5 H Lymph % (Auto) 5.7 L 7.6 L [place] % (Auto) 9.3 H 10.8 H Eos % (Auto) 3.3 4.3 H Baso % (Auto) 0.3 0.8 Neut # (Auto) 4.8 4.4 Lymph # (Auto) 0.3 L 0.4 L [place] # (Auto) 0.5 0.6 Eos # (Auto) 0.2 0.2 Baso # (Auto) 0.0 0.0 WBC Differential . . Differential Comment Auto diff final Auto diff final Sodium Potassium Chloride Carbon Dioxide Anion Gap BUN Creatinine Estimated GFR Random Glucose Calcium Total Bilirubin AST ALT Alkaline Phosphatase Total Protein Albumin Random Vancomycin 10/26/18 03:07 WBC RBC Hgb Hct MCV MCH MCHC RDW Plt Count MPV Neut % (Auto) Lymph % (Auto) [place] % (Auto) Eos % (Auto) Baso % (Auto) Neut # (Auto) Lymph # (Auto) [place] # (Auto) Eos # (Auto) Baso # (Auto) WBC Differential Differential Comment Sodium 151 H Potassium 3.1 L Chloride 116 H Carbon Dioxide 29.7 Anion Gap 5 BUN 41 H Creatinine 1.24 Estimated GFR 57 L Random Glucose 116 H Calcium 7.7 L Total Bilirubin 0.2 AST 31 ALT 20 Alkaline Phosphatase 100 Total Protein 5.4 L Albumin 1.6 L Random Vancomycin 14.0 Microbiology 10/22/18 04:10 Aerobic Blood Culture - Preliminary Blood - Peripheral No growth in 3 days Anaerobic Blood Culture - Preliminary No growth in 3 days 10/22/18 04:15 Aerobic Blood Culture - Preliminary Blood - Peripheral No growth in 3 days Anaerobic Blood Culture - Preliminary No growth in 3 days 10/22/18 09:20 Gram Stain - Final Lumbar Puncture CSF Culture - Final No growth in 72 hours Review/Management - Review/Management Plan: imp mri braina nd c spine neg abg nh3 labs ok eeg neg i think if we keep off sedatives should awaken and do ok 10/18/18 panchal neg csf cx neg labs ok the med team needs to all be on board with holding all sedatives he got fernando patel yest call me when the decision is made to hold sedatives /10/20/18 much better and following commands off sedatives improved neuro i will sign off 10/23/18 icu psychosis i started on sleep regiment keep awake in day and sleep at night keep sleep chart eeg and mri neg i will fu 10/26/18 i dw nursing to give sleeper at 10 pm and midnight if still awake /
--- NOTE | 2018-10-26 09:32 | P.PNCC ---
Subjective Subjective Remarks/Hospital Course: Patient is a 73-year-old male with past medical history significant for hypertension, COPD, Prostate carcinoma, history of previous lumbar laminectomy who came to the [place] emergency department as a transfer from transfer from [facility]. He was accepted by neurosurgery Dr. Peter for acute onset bilateral lower extremity weakness. Patient states that he woke up this morning around 6 AM with numbness and weakness of bilateral lower extremity. On attempt to walk he fell on his face due to weakness. Patient states that the strength got slight better since then. CT scan of the lumbar spine large area of soft attenuation attenuation in the ventral epidural space L2-L3 level suspicious for large disc extrusion with spinal canal stenosis with differential diagnosis involving hemorrhage, there is also at least moderate bilateral neural foraminal stenosis. I evaluate the patient in the ED. He complains of weakness more on the left leg which he is unable to lift. There is generalized numbness but he is able to feel my touch. Critical care was requested to admit the patient to the ICU. Discussed with Dr. Mittal ED and Dr. Peter neurosurgery. A stat MRI of the lumbar spine had been ordered. 10/03: Remains intubated sedated. Remains on Levophed at 10 mcg/min to maintain map above 70. Patient is s/p L2 to L5 posterior spinal fusion, Left L2 /3 microdiscectomy. (MRI showed large herniated disc at L2/3 and flex/ex showing instability at this level). On sedation hold patient is moving all 4 extremities. Hb 8.3 will transfuse 1 unit PRBC due to hypotension 10/04: Remains intubated sedated remains on 8 mcg/min of Levophed to maintain map above 75. Transfusing 1 unit PRBC for hemoglobin 7.4. post-op MRI with significant disc herniation at L2/3. Scheduled for surgery today with Dr. Peter 10/05: Patient underwent surgery on 10/04/2018 for removal residual disc at L2/ 3 right side based on post-op MRI. (s/p L2-5 revision fusion and left L2/3 discectomy on 10/02/18). Today patient's hypoxemia had improved, he was awake but on lightening sedation was very agitated so after a short CPAP trial patient was extubated. Shortly after extubation patient became very agitated requiring four-point restraints and physically nurses having to restrain him. 2 mg IV Ativan was given following which patient became partially responsive with obstructive airway sounds. Shortly became hypoxemic desaturated, became bradycardic in 40s and systolic blood pressure does drop to mid 40s. I was emergently called to the bedside I started bag and mask ventilation immediately. Half ampule of epinephrine was post IV. His heart rate in systolic blood pressure improved with bag and mask ventilation and epinephrine push however he remained unresponsive. Emergently intubated and placed on mechanical ventilation. Once more responsive will start on sedation with Versed. Start Levophed to maintain map above 65. Postintubation chest x-ray is pending. 10/06: Remains intubated heavily sedated for vent synchrony. Patient gets very agitated on holding sedation. We will start Precedex to facilitate vent weaning. Hemoglobin is 7.1, 1 unit of PRBC followed by IV Lasix ordered. 10/07: Agitated. TVs > 1.0 liter spontaneous. Extubated. Patient required reintubation about 5 hours later due to hypoxemia. 10/08: Intubated for the third time last evening. He is unable to tolerate extubation due to a combination of underlying lung disease and severe agitation. If the family wishes to proceed he will require tracheostomy for safe weaning from the ventilator. His baseline mental status is apparently pretty close to normal. 10/09: Tracheostomy placed yesterday. Large amounts of white thick secretions encountered. Chest x-ray continues with a pattern of pulmonary edema. We will continue aggressive twice daily diuretic therapy. Ostensibly plan is to transfer to [facility] at the beginning of next week. One family member is not on board with that yet however. 10/10: Lumbar drain has been placed. Continue spontaneous breathing trials through tracheostomy. Continue discussions with family about transfer to LTAC for long-term weaning. No evidence of infection. 10/11: Effective diuresis but now developing a mild prerenal azotemia. Will hold off for a while and gently hydrate. Now the tracheostomy is performed there is not quite urgency to desiccate his lungs. Hopefully we can work toward a cyst transferred to [facility] after lumbar drain discontinued. 10/12: Following tracheostomy we will continue with attempts at ventilator weaning. Patient has a lumbar drain in place in an attempt to stop a lumbar region wound CSF leak. [facility] will take this patient for long-term weaning once lumbar drain is out. Gentle hydration continues until such time as prerenal azotemia is attenuated. Continue enteral nutrition. 10/13: Remains on mechanical ventilation via tracheostomy. Still on significant sedation due to agitation issues. Lumbar drain continues to drain. Possible surgery tomorrow. 10/14: Remains sedated, on mechanical ventilation via tracheostomy. Scheduled for surgery today for CSF leak lumbar region. 10/15: Remains sedated on mechanical ventilation via tracheostomy. Status post revision of lumbar wound on 10/14 by neurosurgery. Lumbar drain in place and drained 120 cc since yesterday. 10/16: Remains on mechanical ventilation via tracheostomy. Still dealing with agitation on lightening sedation. On Precedex/fentanyl. Received 1 dose of Geodon last night. Also getting as needed Ativan and Seroquel. 10/17: We continue to deal with bouts of agitation which hamper her ability to wean him from the ventilator. Gas exchange remains acceptable. He has required 1 unit of blood transfusion. 10/18: Plan is to clamp drain friday and remove mid-week if lumbar dressing stays dry. Tolerating CPAP today we will try to progress to T piece. 10/19: Patient still intermittently agitated. Per neurology service request we will stop all sedation and analgesia aside from methadone. 10/20: We are unsuccessful getting past spontaneous breathing trials. Still not strong enough to tolerate T-piece. 10/21: Remains encephalopathic, on mechanical ventilation via tracheostomy. Failed CPAP trial this morning. Hemoglobin 6.2. Ordered 2 units PRBCs to be transfused. No overt evidence of blood loss. Temperature 100.7 this morning. Lumbar drain in place and put out 120 cc CSF overnight. Off all sedatives. Tolerating tube feeds via PEG. 10/22: Remains encephalopathic. Has spontaneous eye opening however not following commands. Lumbar drain remains in place. 10/23: Awake, follows occasional commands. Remains on mechanical ventilation via tracheostomy. Melena this morning. Hemoglobin dropped to 7.4. No hypotension. GI reconsulted for evaluation for GI bleed. 1 unit PRBCs being transfused. Dr. Hamilton from neurology reevaluated patient and is initiating a sleep regimen. 10/24: Patient is opening eyes to minimal voice this morning and tracking with his eyes. He is calm and I have not witnessed any of his customary severe agitation. Modest early prerenal azotemia developing, hydrate gently. Continue spontaneous breathing trials, not tolerating T-piece yet. 10/25: Progressing well on spontaneous breathing trials. Will attempt T-piece trial today. Tracks with eyes and looks around a little better. 10/26: Awake and alert. Tracks with eyes. Still has occasional jerking movements. On mechanical ventilation via tracheostomy. Tolerating PEG feeds Objective Vital Signs / I&O: Vital Signs 10/25/18 09:31 10/25/18 10:00 10/25/18 10:01 Temperature 98.6 F Pulse Rate 80 76 74 Respiratory Rate 32 H 16 17 Blood Pressure 183/80 H 180/79 H 180/79 H Pulse Oximetry 98 99 99 10/25/18 10:31 10/25/18 11:00 10/25/18 11:01 Temperature 97.2 F L Pulse Rate 82 97 H 97 H Respiratory Rate 15 42 H 33 H Blood Pressure 174/76 H 175/74 H Pulse Oximetry 100 98 98 10/25/18 11:26 10/25/18 11:31 10/25/18 12:00 Temperature 97.5 F L 99.1 F 99.0 F Pulse Rate 90 94 H 89 Respiratory Rate 17 27 H 20 Blood Pressure 175/75 H 169/74 H 169/74 H Pulse Oximetry 98 97 98 10/25/18 12:01 10/25/18 12:20 10/25/18 12:31 Temperature 99.0 F 99.0 F 99.0 F Pulse Rate 88 80 84 Respiratory Rate 21 17 23 Blood Pressure 176/76 H 164/75 H 147/59 H Pulse Oximetry 98 99 98 10/25/18 13:00 10/25/18 13:01 10/25/18 13:31 Temperature 99.1 F 99.1 F 99.1 F Pulse Rate 94 H 96 H 102 H Respiratory Rate 37 H 29 H 32 H Blood Pressure 169/73 H 184/81 H Pulse Oximetry 99 99 97 10/25/18 14:00 10/25/18 14:01 10/25/18 14:31 Temperature 99.1 F 99.1 F 99.0 F Pulse Rate 92 H 92 H 95 H Respiratory Rate 14 16 25 H Blood Pressure 177/76 H 178/81 H Pulse Oximetry 98 98 97 10/25/18 15:00 10/25/18 15:01 10/25/18 15:24 Temperature 99.1 F 99.1 F Pulse Rate 107 H 108 H Respiratory Rate 24 32 H 16 Blood Pressure 169/80 H Pulse Oximetry 98 98 98 10/25/18 15:31 10/25/18 16:00 10/25/18 16:01 Temperature 99.3 F 99.3 F 99.3 F Pulse Rate 98 H 107 H 103 H Respiratory Rate 9 L 25 H 22 Blood Pressure 181/79 H 198/86 H Pulse Oximetry 98 97 98 10/25/18 16:19 10/25/18 16:31 10/25/18 17:00 Temperature 99.3 F 99.3 F 99.3 F Pulse Rate 101 H 104 H 95 H Respiratory Rate 14 24 14 Blood Pressure 175/75 H 172/75 H Pulse Oximetry 97 97 97 10/25/18 17:01 10/25/18 17:31 10/25/18 18:00 Temperature 99.3 F 99.3 F 99.3 F Pulse Rate 100 H 100 H 83 Respiratory Rate 26 H 19 16 Blood Pressure 169/77 H 169/74 H 140/64 Pulse Oximetry 97 98 97 10/25/18 18:01 10/25/18 18:31 10/25/18 19:00 Temperature 99.3 F 99.5 F 99.5 F Pulse Rate 83 106 H 109 H Respiratory Rate 16 19 23 Blood Pressure 140/64 183/84 H Pulse Oximetry 97 97 97 10/25/18 19:01 10/25/18 19:31 18 19:32 Temperature 99.5 F 99.7 F H Pulse Rate 108 H 115 H Respiratory Rate 27 H 36 H 21 Blood Pressure 166/77 H 178/78 H Pulse Oximetry 97 97 99 10/25/18 20:00 10/25/18 20:01 10/25/18 20:31 Temperature 99.9 F H 99.9 F H 99.9 F H Pulse Rate 111 H 107 H 122 H Respiratory Rate 24 24 48 H Blood Pressure 163/75 H 187/86 H Pulse Oximetry 98 97 97 10/25/18 21:00 10/25/18 21:01 10/25/18 21:31 Temperature 100.0 F H 100.0 F H 100.2 F H Pulse Rate 104 H 108 H 63 Respiratory Rate 21 21 21 Blood Pressure 164/77 H 104/52 L Pulse Oximetry 97 97 95 10/25/18 22:00 1202/18 22:01 10/25/18 22:31 Temperature 100.0 F H 100.0 F H 99.9 F H Pulse Rate 66 65 68 Respiratory Rate 22 22 18 Blood Pressure 106/53 L 114/55 L Pulse Oximetry 96 96 97 10/25/18 23:00 10/25/18 23:01 10/25/18 23:31 Temperature 99.7 F H 99.7 F H 99.5 F Pulse Rate 69 68 68 Respiratory Rate 15 17 17 Blood Pressure 119/58 L 123/59 L Pulse Oximetry 97 97 97 10/25/18 23:40 10/26/18 00:00 10/26/18 00:01 Temperature 99.3 F 99.3 F Pulse Rate 65 65 Respiratory Rate 16 16 15 Blood Pressure 129/62 Pulse Oximetry 98 98 98 10/26/18 00:31 10/26/18 01:00 10/26/18 01:01 Temperature 99.1 F 99.1 F 99.1 F Pulse Rate 65 66 65 Respiratory Rate 17 15 15 Blood Pressure 132/60 139/65 Pulse Oximetry 98 98 98 10/26/18 01:31 10/26/18 01:36 10/26/18 02:00 Temperature 99.0 F 99.0 F 99.0 F Pulse Rate 77 81 93 H Respiratory Rate 13 18 29 H Blood Pressure 174/77 H 157/69 H Pulse Oximetry 97 98 99 10/26/18 02:01 10/26/18 02:03 10/26/18 02:31 Temperature 99.0 F 99.1 F 99.1 F Pulse Rate 95 H 93 H 98 H Respiratory Rate 26 H 17 36 H Blood Pressure 184/81 H 176/79 H 189/86 H Pulse Oximetry 98 97 97 10/26/18 03:00 10/26/18 03:01 10/26/18 03:27 Temperature 99.1 F 99.3 F Pulse Rate 98 H 94 H Respiratory Rate 24 21 14 Blood Pressure 181/83 H Pulse Oximetry 97 89 L 100 10/26/18 03:31 10/26/18 04:00 10/26/18 04:01 Temperature 99.3 F 99.1 F 99.1 F Pulse Rate 86 93 H 96 H Respiratory Rate 20 19 27 H Blood Pressure 184/84 H 187/86 H Pulse Oximetry 99 99 99 10/26/18 04:31 10/26/18 05:00 10/26/18 05:01 Temperature 99.0 F 99.1 F 99.3 F Pulse Rate 104 H 101 H 101 H Respiratory Rate 32 H 26 H 26 H Blood Pressure 189/87 H 196/87 H Pulse Oximetry 98 99 99 10/26/18 05:31 10/26/18 06:00 10/26/18 06:02 Temperature 99.1 F 99.3 F 99.3 F Pulse Rate 107 H 108 H 107 H Respiratory Rate 34 H 29 H 24 Blood Pressure 198/86 H 193/88 H 188/89 H Pulse Oximetry 100 100 100 10/26/18 06:17 10/26/18 06:32 10/26/18 07:00 Temperature 99.3 F 99.3 F 99.3 F Pulse Rate 104 H 86 117 H Respiratory Rate 19 16 31 H Blood Pressure 172/79 H 170/76 H Pulse Oximetry 97 95 99 10/26/18 07:02 10/26/18 07:32 10/26/18 07:39 Temperature 99.3 F 99.3 F Pulse Rate 118 H 119 H Respiratory Rate 35 H 39 H 20 Blood Pressure 183/84 H 181/84 H Pulse Oximetry 97 98 98 10/26/18 08:00 10/26/18 08:02 10/26/18 08:32 Temperature 99.5 F 99.5 F 99.5 F Pulse Rate 110 H 113 H 103 H Respiratory Rate 34 H 30 H 35 H Blood Pressure 181/84 H 182/86 H 186/84 H Pulse Oximetry 97 97 98 Intake & Output 10/25/18 10/26/18 10/26/18 18:59 06:59 18:59 Intake Total 651 / 651 594 / 594 Output Total 750 / 750 700 / 700 Balance -99 / -99 -106 / -106 Weight 93.7 kg Intake: Tube Feeding 551 / 551 474 / 474 Water Bolus Amount 100 / 100 120 / 120 Output: Urine Amount (Catheter) 750 / 750 700 / 700 Indwelling Urethral Catheter 750 / 750 700 / 700 Other: Date of Last Bowel Movement 10/24/18 10/24/18 10/24/18 # Bowel Movements 0 Result Diagrams: 10/26/18 03:07 10/26/18 03:07 Objective Remarks: GENERAL: Elderly gentleman, ongoing vent weaning trials. No sedation. SKIN: Warm and dry HEAD: Normocephalic. Atraumatic EYES: No injection or drainage. No conjunctival icterus or injection ENT: Neck supple. Tracheostomy in place, site is clean and dry CARDIOVASCULAR: Regular rate and rhythm, S1-S2 normal, no murmurs. No JVD RESPIRATORY: Good bilateral air movement, generally clear. Secretions controllable. GASTROINTESTINAL: Abdomen soft, non-tender, nondistended. Bowel sounds present. MUSCULOSKELETAL: No cyanosis, minimal edema. Warm, well-perfused. NEURO: On mechanical ventilation via tracheostomy. Neurology has started antipsychotics. Moves all 4 limbs spontaneously. 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 Code(s): M47.16 - Other spondylosis with myelopathy, lumbar region Status: Acute (2) Weakness of lower extremity Code(s): R29.898 - Other symptoms and signs involving the musculoskeletal system Status: Acute (3) COPD (chronic obstructive pulmonary disease) Code(s): J44.9 - Chronic obstructive pulmonary disease, unspecified Status: Chronic (4) History of prostate cancer Code(s): Z85.46 - Personal history of malignant neoplasm of prostate Status: Chronic (5) History of hypertension Code(s): Z86.79 - Personal history of other diseases of the circulatory system Status: Chronic - Assessment and Plan Plan: ASSESSMENT: Acute hypoxemic hypercarbic/hypoxemic respiratory failure Respiratory arrest after receiving Ativan on 10/05/2018 Hypotension now resolved Lumbar cord compression likely secondary to large herniated disc, with lower extremity weakness Right L2/L3 discectomy 10/04/2018 for removal residual disc at right L2/3 s/p L2-5 revision fusion and left L2/3 discectomy on 10/02/18. Hypotension on pressors History of previous lumbar posterior fusion and microdiscectomy by Dr. Hansen Acute on chronic kidney disease Anemia requiring transfusion Suspected GI bleed History of prostate cancer COPD History of hypertension PLAN: NEURO: -MRI showing large herniated disc at L2/3 and flex/ex showing instability at this level. -s/p L2-5 revision fusion and left L2/3 discectomy on 10/02/18. -post-op MRI with significant disc herniation at right L2/3 despite resection, Right L2/L3 discectomy 10/04/2018 - Lumbar drain clamped, in place for CSF leak. Status post lumbar wound revision on 10/14 by neurosurgery -Continue to hold medications for agitation. -Hold sedation and antipsychotics 10/19 -Test clamp lumbar drain started 10/19 -Sleep regimen being initiated by Dr. Hamilton, Seroquel restarted 10/23 RESP: -Extubated 10/05/18 however became unresponsive and hypoxic after receiving Ativan for agitation -Emergently reintubated and placed on mechanical ventilation -Currently on PRVC/AC -DuoNeb every 6 hours scheduled and as needed -Extubated again 10/07 -Required reintubation 5 hours after extubation due to secretions and hypoxemia. -Tracheostomy performed 10/08 -Continue spontaneous breathing trials. Attempt T piece today 10/25 CV: -Cardiac decompensation most likely secondary to pulmonary problems, hypoxemia -Gas exchange acceptable -Fluid balance remains about right now GI: -Tube feedings via PEG - May require colonoscopy. - Bowel regimen instituted : -Monitor renal function closely. -Strict intake output, follow BUN and creatinine ID: -Sputum culture, stop cefepime due to rash, switched to IV Azactam and vancomycin due to rash on 10/16. -Adjust per ID consult for antibiotic management -10/19 Sputum growing gram-negative rods, one positive blood culture with [facility]. Antibiotics adjusted by infectious disease service HEME: -Monitor CBC, coags -Ordered 2 units PRBCs to be transfused for hemoglobin 6.2 on 10/21. Melena noted on 10/23 with drop in hemoglobin. 1 unit PRBCs ordered to be transfused on 10/23 -Per discussion with patient's daughter on 10/21 he has had extensive workup for anemia with an oncologist including bone marrow, GI workup and was being treated with IV iron however no obvious source of blood loss on previous workup per daughter. -Hemoglobin now stable ENDO: -Electrolyte replacement per protocol PROPH: -Bilateral lower extremity SCDs. No chemical DVT prophylaxis due to evidence of recent GI bleed LINES: -Utilize peripheral IVs -PT evaluate and treat Overall impression impression: We will continue to try to clean up his lungs and strive for ventilator weaning. Continue discussions with daughter about possible transfer to [facility].
[2018-10-26] MEDS ORDERED: Vancomycin Inj 1,500 MG in Sodium Chlor 0.9% Inj 500 ML IV.SIG ONE (11:00)
[2018-10-26] MEDS: Pantoprazole Inj 40 MG Vial IV.PUSH SCH ×2 (11:21→23:02)
--- NOTE | 2018-10-26 13:40 | P.PNGI ---
Subjective Interval history: Mechanically ventilated via trach Physical Exam Vital signs: Vital Signs 10/25/18 14:00 10/25/18 14:01 10/25/18 14:31 Temperature 99.1 F 99.1 F 99.0 F Pulse Rate 92 H 92 H 95 H Respiratory Rate 14 16 25 H Blood Pressure 177/76 H 178/81 H Pulse Oximetry 98 98 97 10/25/18 15:00 10/25/18 15:01 10/25/18 15:24 Temperature 99.1 F 99.1 F Pulse Rate 107 H 108 H Respiratory Rate 24 32 H 16 Blood Pressure 169/80 H Pulse Oximetry 98 98 98 10/25/18 15:31 10/25/18 16:00 10/25/18 16:01 Temperature 99.3 F 99.3 F 99.3 F Pulse Rate 98 H 107 H 103 H Respiratory Rate 9 L 25 H 22 Blood Pressure 181/79 H 198/86 H Pulse Oximetry 98 97 98 10/25/18 16:19 10/25/18 16:31 10/25/18 17:00 Temperature 99.3 F 99.3 F 99.3 F Pulse Rate 101 H 104 H 95 H Respiratory Rate 14 24 14 Blood Pressure 175/75 H 172/75 H Pulse Oximetry 97 97 97 10/25/18 17:01 10/25/18 17:31 10/25/18 18:00 Temperature 99.3 F 99.3 F 99.3 F Pulse Rate 100 H 100 H 83 Respiratory Rate 26 H 19 16 Blood Pressure 169/77 H 169/74 H 140/64 Pulse Oximetry 97 98 97 10/25/18 18:01 10/25/18 18:31 10/25/18 19:00 Temperature 99.3 F 99.5 F 99.5 F Pulse Rate 83 106 H 109 H Respiratory Rate 16 19 23 Blood Pressure 140/64 183/84 H Pulse Oximetry 97 97 97 10/25/18 19:01 10/25/18 19:31 10/25/18 19:32 Temperature 99.5 F 99.7 F H Pulse Rate 108 H 115 H Respiratory Rate 27 H 36 H 21 Blood Pressure 166/77 H 178/78 H Pulse Oximetry 97 97 99 10/25/18 20:00 10/25/18 20:01 10/25/18 20:31 Temperature 99.9 F H 99.9 F H 99.9 F H Pulse Rate 111 H 107 H 122 H Respiratory Rate 24 24 48 H Blood Pressure 163/75 H 187/86 H Pulse Oximetry 98 97 97 10/25/18 21:00 10/25/18 21:01 10/25/18 21:31 Temperature 100.0 F H 100.0 F H 100.2 F H Pulse Rate 104 H 108 H 63 Respiratory Rate 21 21 21 Blood Pressure 164/77 H 104/52 L Pulse Oximetry 97 97 95 10/25/18 22:00 10/25/18 22:01 10/25/18 22:31 Temperature 100.0 F H 100.0 F H 99.9 F H Pulse Rate 66 65 68 Respiratory Rate 22 22 18 Blood Pressure 106/53 L 114/55 L Pulse Oximetry 96 96 97 10/25/18 23:00 10/25/18 23:01 10/25/18 23:31 Temperature 99.7 F H 99.7 F H 99.5 F Pulse Rate 69 68 68 Respiratory Rate 15 17 17 Blood Pressure 119/58 L 123/59 L Pulse Oximetry 97 97 97 10/25/18 23:40 10/26/18 00:00 10/26/18 00:01 Temperature 99.3 F 99.3 F Pulse Rate 65 65 Respiratory Rate 16 16 15 Blood Pressure 129/62 Pulse Oximetry 98 98 98 10/26/18 00:31 10/26/18 01:00 10/26/18 01:01 Temperature 99.1 F 99.1 F 99.1 F Pulse Rate 65 66 65 Respiratory Rate 17 15 15 Blood Pressure 132/60 139/65 Pulse Oximetry 98 98 98 10/26/18 01:31 10/26/18 01:36 10/26/18 02:00 Temperature 99.0 F 99.0 F 99.0 F Pulse Rate 77 81 93 H Respiratory Rate 13 18 29 H Blood Pressure 174/77 H 157/69 H Pulse Oximetry 97 98 99 10/26/18 02:01 10/26/18 02:03 10/26/18 02:31 Temperature 99.0 F 99.1 F 99.1 F Pulse Rate 95 H 93 H 98 H Respiratory Rate 26 H 17 36 H Blood Pressure 184/81 H 176/79 H 189/86 H Pulse Oximetry 98 97 97 10/26/18 03:00 10/26/18 03:01 10/26/18 03:27 Temperature 99.1 F 99.3 F Pulse Rate 98 H 94 H Respiratory Rate 24 21 14 Blood Pressure 181/83 H Pulse Oximetry 97 89 L 100 10/26/18 03:31 10/26/18 04:00 10/26/18 04:01 Temperature 99.3 F 99.1 F 99.1 F Pulse Rate 86 93 H 96 H Respiratory Rate 20 19 27 H Blood Pressure 184/84 H 187/86 H Pulse Oximetry 99 99 99 10/26/18 04:31 10/26/18 05:00 10/26/18 05:01 Temperature 99.0 F 99.1 F 99.3 F Pulse Rate 104 H 101 H 101 H Respiratory Rate 32 H 26 H 26 H Blood Pressure 189/87 H 196/87 H Pulse Oximetry 98 99 99 10/26/18 05:31 10/26/18 06:00 10/26/18 06:02 Temperature 99.1 F 99.3 F 99.3 F Pulse Rate 107 H 108 H 107 H Respiratory Rate 34 H 29 H 24 Blood Pressure 198/86 H 193/88 H 188/89 H Pulse Oximetry 100 100 100 10/26/18 06:17 10/26/18 06:32 10/26/18 07:00 Temperature 99.3 F 99.3 F 99.3 F Pulse Rate 104 H 86 117 H Respiratory Rate 19 16 31 H Blood Pressure 172/79 H 170/76 H Pulse Oximetry 97 95 99 10/26/18 07:02 10/26/18 07:32 10/26/18 07:39 Temperature 99.3 F 99.3 F Pulse Rate 118 H 119 H Respiratory Rate 35 H 39 H 20 Blood Pressure 183/84 H 181/84 H Pulse Oximetry 97 98 98 10/26/18 08:00 10/26/18 08:02 10/26/18 08:32 Temperature 99.5 F 99.5 F 99.5 F Pulse Rate 110 H 113 H 103 H Respiratory Rate 34 H 30 H 35 H Blood Pressure 181/84 H 182/86 H 186/84 H Pulse Oximetry 97 97 98 10/26/18 10:00 10/26/18 10:03 10/26/18 12:00 Temperature 100.2 F H 100.2 F H 100.0 F H Pulse Rate 89 77 104 H Respiratory Rate 35 H 6 L 30 H Blood Pressure 151/69 H Pulse Oximetry 95 97 98 10/26/18 12:03 Temperature 100.0 F H Pulse Rate 106 H Respiratory Rate 47 H Blood Pressure 181/85 H Pulse Oximetry 98 Intake & Output 10/25/18 10/26/18 10/26/18 18:59 06:59 18:59 Intake Total 651 / 651 594 / 594 1000 / 1000 Output Total 750 / 750 700 / 700 Balance -99 / -99 -106 / -106 1000 / 1000 Weight 93.7 kg Intake: IV 1000 / 1000 LR 1000 mL Inj 1,000 ML @ 20 1000 / 1000 mls/hr IV.CONT .Q24H [facility] Rx#: [id number] Tube Feeding 551 / 551 474 / 474 Water Bolus Amount 100 / 100 120 / 120 Output: Urine Amount (Catheter) 750 / 750 700 / 700 Indwelling Urethral Catheter 750 / 750 700 / 700 Other: Date of Last Bowel Movement 10/24/18 10/24/18 10/26/18 # Bowel Movements 0 - Constitutional chronically ill appearing - Routine HEENT Exam Head: Present: normocephalic - Routine Respiratory Exam Present: patient mechanically ventilated - Routine Abdominal Exam Present: soft, normoactive bowel sounds. Absent: tenderness, distended, guarding, firm Comments: G-tube in place Feeding infusing Dressing dry and intact No active bleeding noted or reported - Routine Skin Exam Present: dry, warm. Absent: pallor - Routine Neurological Exam Present: alert - Urinary Catheter Management Indwelling Urethral Catheter Cath placed during this visit: yes, but has since been removed by the nurse Reason for continuing: Acute urinary retention Insertion date: 10/22/18 Insertion time: 08:05 Removal date: 10/22/18 Removal time: 08:00 Results - Labs CBC & Chem 7: 10/26/18 03:07 10/26/18 03:07 Laboratory Results - last 24 hr 10/25/18 10/25/18 10/26/18 12:46 13:55 03:07 WBC 6.0 5.9 5.7 RBC 2.58 L 2.50 L 2.52 L Hgb 7.8 L 7.6 L 7.7 L Hct 23.0 L 22.4 L 22.4 L MCV 89.3 89.9 88.8 MCH 30.2 30.3 30.6 MCHC 33.8 33.7 34.5 RDW 17.2 17.1 17.6 H Plt Count 253 251 260 MPV 8.3 8.2 8.3 Neut % (Auto) 81.4 H 76.5 H Lymph % (Auto) 5.7 L 7.6 L [place] % (Auto) 9.3 H 10.8 H Eos % (Auto) 3.3 4.3 H Baso % (Auto) 0.3 0.8 Neut # (Auto) 4.8 4.4 Lymph # (Auto) 0.3 L 0.4 L [place] # (Auto) 0.5 0.6 Eos # (Auto) 0.2 0.2 Baso # (Auto) 0.0 0.0 WBC Differential . . Differential Comment Auto diff final Auto diff final Sodium Potassium Chloride Carbon Dioxide Anion Gap BUN Creatinine Estimated GFR Random Glucose Calcium Total Bilirubin AST ALT Alkaline Phosphatase Total Protein Albumin Random Vancomycin 10/26/18 03:07 WBC RBC Hgb Hct MCV MCH MCHC RDW Plt Count MPV Neut % (Auto) Lymph % (Auto) [place] % (Auto) Eos % (Auto) Baso % (Auto) Neut # (Auto) Lymph # (Auto) [place] # (Auto) Eos # (Auto) Baso # (Auto) WBC Differential Differential Comment Sodium 151 H Potassium 3.1 L Chloride 116 H Carbon Dioxide 29.7 Anion Gap 5 BUN 41 H Creatinine 1.24 Estimated GFR 57 L Random Glucose 116 H Calcium 7.7 L Total Bilirubin 0.2 AST 31 ALT 20 Alkaline Phosphatase 100 Total Protein 5.4 L Albumin 1.6 L Random Vancomycin 14.0 Microbiology 10/22/18 04:10 Blood - Peripheral Aerobic Blood Culture - Preliminary No growth in 4 days 10/22/18 04:10 Blood - Peripheral Anaerobic Blood Culture - Preliminary No growth in 4 days 10/22/18 04:15 Blood - Peripheral Aerobic Blood Culture - Preliminary No growth in 4 days 10/22/18 04:15 Blood - Peripheral Anaerobic Blood Culture - Preliminary No growth in 4 days Assessment and Plan (1) PEG (percutaneous endoscopic gastrostomy) adjustment/replacement/removal Status: Acute Code(s): Z43.1 - Encounter for attention to gastrostomy - Plan Patient is a 73-year-old male with past medical history significant for hypertension, COPD, prostate carcinoma and lumbar laminectomy. Surgical history includes endarterectomy. Patient was transferred from [facility] to [facility] for evaluation of acute onset of bilateral lower extremity weakness. CT of the lumbar spine revealed attenuation in the ventral epidural space L2-L3 suspicious for large disc extrusion with spinal canal stenosis. Patient has tracheostomy and is ventilated. Patient has lumbar drain present draining cerebrospinal fluid. NG tube present and clamped at this time. Our service has been consulted to evaluate patient for PEG tube placement. PEG tube placement -Patient with past medical history of lumbar laminectomy presented to the emergency department with reported numbness and weakness of bilateral lower extremities. CT lumbar spine shows moderate bilateral neuro foraminal stenosis. 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 Nursing reports patient had multiple bowel movements overnight. Specimen noted to be black and tarry. 10/21/2018 hemoglobin 6.2 hematocrit 18.7 patient then transfused 2 units packed RBCs Post-transfusion 10/21/2018 hemoglobin 9.2 hematocrit 27.9 platelet count 253 No hematemesis or bright red bleeding noted or reported. Recent EGD negative-possibly from PEG tube site 10/26/2018 No reported bleeding. No active bleeding noted. PEG tube in place, positive bowel sounds present. Nurse reports pt had small dark tarry stool this am Hemoglobin 7.7 hematocrit 22.4 platelet count 260 Last noted transfusion 10/23/2018. Plan -Check peg tube residuals -Monitor for any active bleeding -Monitor labs hemoglobin and hematocrit -PPI -Supportive care -Will order bleeding scan, if negative, pt may be discharged This patient has been seen by myself and Dr. Johnson and this note is written on his behalf - Attending Attestation Dr. Johnson
--- NOTE | 2018-10-26 13:56 | P.PNID ---
Subjective Remarks: Patient is a 73-year-old male, initially presented at [facility] for evaluation of acute onset bilateral lower extremity weakness. He apparently woke up on the morning of presentation with numbness and weakness of bilateral lower extremity. He tried to walk but fell on his face. Patient presented to [facility] and CT of the lumbar spine showed a large area of soft attenuation in the ventral epidural space at L2-L3 suspicious for a large disc extrusion with spinal canal stenosis. He was transferred here at [facility] for neurosurgical evaluation. He underwent surgery on October 02 and had L2-L5 posterior spinal fusion, and left L2-L3 microdiscectomy. He was on the vent postoperatively. He had a repeat MRI on October 03 which showed disc herniation, and the patient underwent surgery again and had a right discectomy L2-L3. Patient has had problem with his respiratory status. He was extubated and reintubated 3 times, and subsequently underwent tracheostomy on October 08. On October 09 he was found to have a CSF leak, and underwent placement of a lumbar drain. He continues to have drainage, and he went to surgery again on October 14 and had revision of the lumbar wound, and repair of the leak, and has a lumbar drain again. Infectious disease consultation has been requested to assist with antibiotic management in a patient who has had a CSF leak. Notes reviewed Low grade temps overnight BP ok On CPAP He is focusing Lumbar drain removed Has 2 BC with different Coag Neg Staph, C/W contamination Last CSF C/S 10/22 - negative RPR negative Sputum - Sten mal, Citrobacter and MSSA Antibiotics: Vancomycin Levaquin Lines: PIV Past Medical History: Back pain Colonic polyp GERD (gastroesophageal reflux disease) Hypertension Neuropathy Osteoarthritis Prostate carcinoma Endarterectomy Allergies/Adverse Reactions: Allergies No Known Allergies (Unknown, Uncoded 10/27/17 16:04) Objective Vital Signs 10/25/18 14:00 10/25/18 14:01 10/25/18 14:31 Temperature 99.1 F 99.1 F 99.0 F Pulse Rate 92 H 92 H 95 H Respiratory Rate 14 16 25 H Blood Pressure 177/76 H 178/81 H Pulse Oximetry 98 98 97 10/25/18 15:00 10/25/18 15:01 10/25/18 15:24 Temperature 99.1 F 99.1 F Pulse Rate 107 H 108 H Respiratory Rate 24 32 H 16 Blood Pressure 169/80 H Pulse Oximetry 98 98 98 10/25/18 15:31 10/25/18 16:00 10/25/18 16:01 Temperature 99.3 F 99.3 F 99.3 F Pulse Rate 98 H 107 H 103 H Respiratory Rate 9 L 25 H 22 Blood Pressure 181/79 H 198/86 H Pulse Oximetry 98 97 98 10/25/18 16:19 10/25/18 16:31 10/25/18 17:00 Temperature 99.3 F 99.3 F 99.3 F Pulse Rate 101 H 104 H 95 H Respiratory Rate 14 24 14 Blood Pressure 175/75 H 172/75 H Pulse Oximetry 97 97 97 10/25/18 17:01 10/25/18 17:31 10/25/18 18:00 Temperature 99.3 F 99.3 F 99.3 F Pulse Rate 100 H 100 H 83 Respiratory Rate 26 H 19 16 Blood Pressure 169/77 H 169/74 H 140/64 Pulse Oximetry 97 98 97 10/25/18 18:01 10/25/18 18:31 10/25/18 19:00 Temperature 99.3 F 99.5 F 99.5 F Pulse Rate 83 106 H 109 H Respiratory Rate 16 19 23 Blood Pressure 140/64 183/84 H Pulse Oximetry 97 97 97 10/25/18 19:01 10/25/18 19:31 10/25/18 19:32 Temperature 99.5 F 99.7 F H Pulse Rate 108 H 115 H Respiratory Rate 27 H 36 H 21 Blood Pressure 166/77 H 178/78 H Pulse Oximetry 97 97 99 10/25/18 20:00 10/25/18 20:01 10/25/18 20:31 Temperature 99.9 F H 99.9 F H 99.9 F H Pulse Rate 111 H 107 H 122 H Respiratory Rate 24 24 48 H Blood Pressure 163/75 H 187/86 H Pulse Oximetry 98 97 97 10/25/18 21:00 10/25/18 21:01 10/25/18 21:31 Temperature 100.0 F H 100.0 F H 100.2 F H Pulse Rate 104 H 108 H 63 Respiratory Rate 21 21 21 Blood Pressure 164/77 H 104/52 L Pulse Oximetry 97 97 95 10/25/18 22:00 10/25/18 22:01 12/02/18 22:31 Temperature 100.0 F H 100.0 F H 99.9 F H Pulse Rate 66 65 68 Respiratory Rate 22 22 18 Blood Pressure 106/53 L 114/55 L Pulse Oximetry 96 96 97 10/25/18 23:00 10/25/18 23:01 10/25/18 23:31 Temperature 99.7 F H 99.7 F H 99.5 F Pulse Rate 69 68 68 Respiratory Rate 15 17 17 Blood Pressure 119/58 L 123/59 L Pulse Oximetry 97 97 97 10/25/18 23:40 10/26/18 00:00 10/26/18 00:01 Temperature 99.3 F 99.3 F Pulse Rate 65 65 Respiratory Rate 16 16 15 Blood Pressure 129/62 Pulse Oximetry 98 98 98 10/26/18 00:31 10/26/18 01:00 10/26/18 01:01 Temperature 99.1 F 99.1 F 99.1 F Pulse Rate 65 66 65 Respiratory Rate 17 15 15 Blood Pressure 132/60 139/65 Pulse Oximetry 98 98 98 10/26/18 01:31 10/26/18 01:36 10/26/18 02:00 Temperature 99.0 F 99.0 F 99.0 F Pulse Rate 77 81 93 H Respiratory Rate 13 18 29 H Blood Pressure 174/77 H 157/69 H Pulse Oximetry 97 98 99 10/26/18 02:01 10/26/18 02:03 10/26/18 02:31 Temperature 99.0 F 99.1 F 99.1 F Pulse Rate 95 H 93 H 98 H Respiratory Rate 26 H 17 36 H Blood Pressure 184/81 H 176/79 H 189/86 H Pulse Oximetry 98 97 97 10/26/18 03:00 10/26/18 03:01 10/26/18 03:27 Temperature 99.1 F 99.3 F Pulse Rate 98 H 94 H Respiratory Rate 24 21 14 Blood Pressure 181/83 H Pulse Oximetry 97 89 L 100 10/26/18 03:31 10/26/18 04:00 10/26/18 04:01 Temperature 99.3 F 99.1 F 99.1 F Pulse Rate 86 93 H 96 H Respiratory Rate 20 19 27 H Blood Pressure 184/84 H 187/86 H Pulse Oximetry 99 99 99 10/26/18 04:31 10/26/18 05:00 10/26/18 05:01 Temperature 99.0 F 99.1 F 99.3 F Pulse Rate 104 H 101 H 101 H Respiratory Rate 32 H 26 H 26 H Blood Pressure 189/87 H 196/87 H Pulse Oximetry 98 99 99 10/26/18 05:31 10/26/18 06:00 10/26/18 06:02 Temperature 99.1 F 99.3 F 99.3 F Pulse Rate 107 H 108 H 107 H Respiratory Rate 34 H 29 H 24 Blood Pressure 198/86 H 193/88 H 188/89 H Pulse Oximetry 100 100 100 10/26/18 06:17 10/26/18 06:32 10/26/18 07:00 Temperature 99.3 F 99.3 F 99.3 F Pulse Rate 104 H 86 117 H Respiratory Rate 19 16 31 H Blood Pressure 172/79 H 170/76 H Pulse Oximetry 97 95 99 10/26/18 07:02 10/26/18 07:32 10/26/18 07:39 Temperature 99.3 F 99.3 F Pulse Rate 118 H 119 H Respiratory Rate 35 H 39 H 20 Blood Pressure 183/84 H 181/84 H Pulse Oximetry 97 98 98 10/26/18 08:00 10/26/18 08:02 10/26/18 08:32 Temperature 99.5 F 99.5 F 99.5 F Pulse Rate 110 H 113 H 103 H Respiratory Rate 34 H 30 H 35 H Blood Pressure 181/84 H 182/86 H 186/84 H Pulse Oximetry 97 97 98 10/26/18 10:00 10/26/18 10:03 10/26/18 12:00 Temperature 100.2 F H 100.2 F H 100.0 F H Pulse Rate 89 77 104 H Respiratory Rate 35 H 6 L 30 H Blood Pressure 151/69 H Pulse Oximetry 95 97 98 10/26/18 12:03 Temperature 100.0 F H Pulse Rate 106 H Respiratory Rate 47 H Blood Pressure 181/85 H Pulse Oximetry 98 Intake & Output 10/25/18 10/26/18 10/26/18 18:59 06:59 18:59 Intake Total 651 / 651 594 / 594 1000 / 1000 Output Total 750 / 750 700 / 700 Balance -99 / -99 -106 / -106 1000 / 1000 Weight 93.7 kg Intake: IV 1000 / 1000 LR 1000 mL Inj 1,000 ML @ 20 1000 / 1000 mls/hr IV.CONT .Q24H [facility] Rx#: [id number] Tube Feeding 551 / 551 474 / 474 Water Bolus Amount 100 / 100 120 / 120 Output: Urine Amount (Catheter) 750 / 750 700 / 700 Indwelling Urethral Catheter 750 / 750 700 / 700 Other: Date of Last Bowel Movement 10/24/18 10/24/18 10/26/18 # Bowel Movements 0 10/22/18 04:10 Blood - Peripheral Aerobic Blood Culture - Preliminary No growth in 4 days 10/22/18 04:10 Blood - Peripheral Anaerobic Blood Culture - Preliminary No growth in 4 days 10/22/18 04:15 Blood - Peripheral Aerobic Blood Culture - Preliminary No growth in 4 days 10/22/18 04:15 Blood - Peripheral Anaerobic Blood Culture - Preliminary No growth in 4 days 10/22/18 09:20 Lumbar Puncture Gram Stain - Final 10/22/18 09:20 Lumbar Puncture CSF Culture - Final No growth in 72 hours 10/19/18 18:45 Blood - Peripheral Aerobic Blood Culture - Final Staphylococcus capitis-capitis 10/19/18 18:45 Blood - Peripheral Anaerobic Blood Culture - Final QNS - See aerobic report. 10/23/18 10:32 Stool Occult Blood - Final Hemoccult positive 10/19/18 17:30 Sputum - Endotracheal Gram Stain - Final 10/19/18 17:30 Sputum - Endotracheal Sputum Culture - Final Stenotrophomonas maltophilia Citrobacter freundii Staphylococcus aureus 10/19/18 18:35 Blood - Peripheral Aerobic Blood Culture - Final Staphylococcus warneri 10/19/18 18:35 Blood - Peripheral Anaerobic Blood Culture - Final QNS - See aerobic report. Lab - Hematology Results 10/25/18 10/25/18 10/26/18 12:46 13:55 03:07 WBC 6.0 5.9 5.7 RBC 2.58 L 2.50 L 2.52 L Hgb 7.8 L 7.6 L 7.7 L Hct 23.0 L 22.4 L 22.4 L MCV 89.3 89.9 88.8 MCH 30.2 30.3 30.6 MCHC 33.8 33.7 34.5 RDW 17.2 17.1 17.6 H Plt Count 253 251 260 MPV 8.3 8.2 8.3 Neut % (Auto) 81.4 H 76.5 H Lymph % (Auto) 5.7 L 7.6 L [place] % (Auto) 9.3 H 10.8 H Eos % (Auto) 3.3 4.3 H Baso % (Auto) 0.3 0.8 Neut # (Auto) 4.8 4.4 Lymph # (Auto) 0.3 L 0.4 L [place] # (Auto) 0.5 0.6 Eos # (Auto) 0.2 0.2 Baso # (Auto) 0.0 0.0 WBC Differential . . Differential Comment Auto diff final Auto diff final Lab - Chemistry Results 10/26/18 03:07 Sodium 151 H Potassium 3.1 L Chloride 116 H Carbon Dioxide 29.7 Anion Gap 5 BUN 41 H Creatinine 1.24 Estimated GFR 57 L Random Glucose 116 H Calcium 7.7 L Total Bilirubin 0.2 AST 31 ALT 20 Alkaline Phosphatase 100 Total Protein 5.4 L Albumin 1.6 L Imaging: ITS Impressions Lumbar Spine X-Ray 10/04/18 00:00 CONCLUSION: Lumbar Puncture Fluoroscopy 10/09/18 00:00 CONCLUSION: 1. Uncomplicated lumbar drain placement as above. Lumbar Spine MRI 10/09/18 00:00 CONCLUSION: 1. Significant improvement in the postoperative appearance of the spine with good decompression at L2-3. There is no significant thecal sac impingement. 2. Moderate facet disease is seen in the fused levels stable interval. Thoracic Spine MRI 10/09/18 00:00 CONCLUSION: 1. Significant cervical spinal stenosis, not evaluated on this exam. 2. There is no intrathoracic cord compression. 3. Conus is unremarkable. Cervical Spine MRI 10/16/18 11:58 CONCLUSION: Mild spondylosis and disc disease. No significant canal or foraminal compromise. No explanation for myelopathy. Head MRI 10/16/18 11:58 CONCLUSION: No acute intracranial findings. Chest X-Ray 10/19/18 00:00 CONCLUSION: 1. Interval removal of NGT. 2. Diffuse airspace opacities throughout the right lung with more confluent consolidation in the medial right lower lung zone. 3. Patchy mid to lower left lung zone airspace disease. 4. Overall findings are concerning for aspiration or diffuse infection given history of fever. Physical Exam: GENERAL: Awake, focusing some. on CPAP, not in respiratory distress. SKIN: Cool and dry. Has scattered papular rash in his trunk, and his lower extremity, looks less HEAD: Atraumatic. Normocephalic. No temporal wasting, or tenderness. EYES: [place] conjunctiva. No petechia or hemorrhage. No scleral icterus. No injection or drainage. EARS, NOSE AND THROAT: Nose without bleeding or purulent nasal discharge. Slightly dry oral mucosa NECK: Tracheostomy site looks ok CARDIOVASCULAR: Regular rate and rhythm. No murmurs, rubs or gallops heard RESPIRATORY: Coarse breath sounds bilaterally, decreased at the bases. ABDOMEN: Soft, globular, non-tender, nondistended. Bowel sounds present and normoactive. EXTREMITIES: No clubbing, cyanosis. Has bilateral pedal edema. Well perfused and warm. NEUROLOGICAL: Awake, focusing some PSYCHIATRIC: Calm LINE: No evidence of infection Assessment and Plan - Plan Impression Recurrent CSF leak, S/P surgery x2 for leak, last surgery 10/14. Culture pending. Drug eruption, better, likely from Cefepime Recurrent respiratory failure, S/P trach Encephalopathy Low grade temps (+) BC, C/W contaminant PNA GIB Recommendation Stop Vancomycin. Continue Levaquin CXR UA and C/S Follow C/S Follow temps Monitor progress Weaning per CCM
--- NOTE | 2018-10-26 14:34 | XR ---
EXAM DATE: 10/26/2018 2:23 PM EST AGE/SEX: 73 years / Male INDICATIONS: Pneumonia. CLINICAL DATA: This is the patient's initial encounter. Patient reports that signs and symptoms have been present for 4 - 6 days and indicates a pain score of Nonresponsive. MEDICAL/SURGICAL HISTORY: Carcinoma, prostatic. . fusion lumbar, carotid endarterectomy, discec denis lumbar COMPARISON: [facility], CHEST 1V SINGLE AP, 10/19/2018. . FINDINGS: There is diffuse bilateral interstitial and airspace pulmonary infiltrates throughout both lung field s. This is not significantly changed compared to the prior exam. There is a tracheostomy tube in plac e. There is no evidence of pneumothorax. There is blunting of both costophrenic angles suggestive of pleural effusions. The bony structures are stable. CONCLUSION: There continues to be diffuse bilateral interstitial and airspace pulmonary infiltrates throughout eduar th lung [place]. Electronically signed by: Miguel Laughlin MD 10/26/2018 2:33 PM EST
[2018-10-26] MEDS: Metoprolol Inj 5 MG/5 ML Vial IV.PUSH PRN (16:51)
--- NOTE | 2018-10-26 17:03 | P.DIET ---
Nutritional Evaluation Type of nutrition evaluation: follow-up Nutrition consult regarding: Tube Feeding Objective - Diagnosis spinal hematoma - Objective % IBW: 112 (IBW = 166#) Body Weight Used for Calculations: Actual (84.3) Energy Needs - Lower Range (kCal/kg): 25 Energy Needs - Upper Range (kCal/kg): 30 Lower Limit kCal/kg (kCals): 2,108 Upper Limit kCal/kg (kCals): 2,529 Lower Limit Protein Factor (Grams per Kg): 1.2 Upper Limit Protein Factor (Grams per Kg): 1.6 Lower Protein Needs (Protein): 101 Upper Protein Needs (Protein): 135 Dietitian Reviewed in Medical Record: Curent medications, Intake & Output, Labs , Medical history, Tube feeding Diet Order: NPO Objective Comments: PMH: back pain, GERD, HTN, neuropathy, osteoarthritis, prostate carcinoma Assessment Assessment: Pt remains at high nutrition needing TFing to meet nutirtional needs. Pt currently receiving Jevity 1.5 @ 45 mLs/hr. To meet needs with Jevity 1.5, recommend goal rate of 65 mls/hr to provide 2340 kcals, 100 gms protein and 1186 mls of free water. Labs, wts and clinical course reviewed. Wt changes noted. Recommendations: Increase Jevity 1.5 to 65 mls/hr goal Dietitian to Monitor: Lab values, Intake & Output, Tube feeding tolerance, Weight change, Medical course
--- NOTE | 2018-10-26 17:13 | P.PNNS ---
Subjective Interval history: Doing well. Incision dry Physical Exam Vital signs: Vital Signs 10/25/18 17:31 10/25/18 18:00 10/25/18 18:01 Temperature 99.3 F 99.3 F 99.3 F Pulse Rate 100 H 83 83 Respiratory Rate 19 16 16 Blood Pressure 169/74 H 140/64 140/64 Pulse Oximetry 98 97 97 10/25/18 18:31 10/25/18 19:00 10/25/18 19:01 Temperature 99.5 F 99.5 F 99.5 F Pulse Rate 106 H 109 H 108 H Respiratory Rate 19 23 27 H Blood Pressure 183/84 H 166/77 H Pulse Oximetry 97 97 97 10/25/18 19:31 10/25/18 19:32 10/25/18 20:00 Temperature 99.7 F H 99.9 F H Pulse Rate 115 H 111 H Respiratory Rate 36 H 21 24 Blood Pressure 178/78 H Pulse Oximetry 97 99 98 10/25/18 20:01 10/25/18 20:31 10/25/18 21:00 Temperature 99.9 F H 99.9 F H 100.0 F H Pulse Rate 107 H 122 H 104 H Respiratory Rate 24 48 H 21 Blood Pressure 163/75 H 187/86 H Pulse Oximetry 97 97 97 10/25/18 21:01 10/25/18 21:31 10/25/18 22:00 Temperature 100.0 F H 100.2 F H 100.0 F H Pulse Rate 108 H 63 66 Respiratory Rate 21 21 22 Blood Pressure 164/77 H 104/52 L Pulse Oximetry 97 95 96 10/25/18 22:01 10/25/18 22:31 10/25/18 23:00 Temperature 100.0 F H 99.9 F H 99.7 F H Pulse Rate 65 68 69 Respiratory Rate 22 18 15 Blood Pressure 106/53 L 114/55 L Pulse Oximetry 96 97 97 10/25/18 23:01 10/25/18 23:31 10/25/18 23:40 Temperature 99.7 F H 99.5 F Pulse Rate 68 68 Respiratory Rate 17 17 16 Blood Pressure 119/58 L 123/59 L Pulse Oximetry 97 97 98 10/26/18 00:00 10/26/18 00:01 10/26/18 00:31 Temperature 99.3 F 99.3 F 99.1 F Pulse Rate 65 65 65 Respiratory Rate 16 15 17 Blood Pressure 129/62 132/60 Pulse Oximetry 98 98 98 10/26/18 01:00 10/26/18 01:01 10/26/18 01:31 Temperature 99.1 F 99.1 F 99.0 F Pulse Rate 66 65 77 Respiratory Rate 15 15 13 Blood Pressure 139/65 174/77 H Pulse Oximetry 98 98 97 10/26/18 01:36 10/26/18 02:00 10/26/18 02:01 Temperature 99.0 F 99.0 F 99.0 F Pulse Rate 81 93 H 95 H Respiratory Rate 18 29 H 26 H Blood Pressure 157/69 H 184/81 H Pulse Oximetry 98 99 98 10/26/18 02:03 10/26/18 02:31 10/26/18 03:00 Temperature 99.1 F 99.1 F 99.1 F Pulse Rate 93 H 98 H 98 H Respiratory Rate 17 36 H 24 Blood Pressure 176/79 H 189/86 H Pulse Oximetry 97 97 97 10/26/18 03:01 10/26/18 03:27 10/26/18 03:31 Temperature 99.3 F 99.3 F Pulse Rate 94 H 86 Respiratory Rate 21 14 20 Blood Pressure 181/83 H 184/84 H Pulse Oximetry 89 L 100 99 10/26/18 04:00 10/26/18 04:01 10/26/18 04:31 Temperature 99.1 F 99.1 F 99.0 F Pulse Rate 93 H 96 H 104 H Respiratory Rate 19 27 H 32 H Blood Pressure 187/86 H 189/87 H Pulse Oximetry 99 99 98 10/26/18 05:00 10/26/18 05:01 10/26/18 05:31 Temperature 99.1 F 99.3 F 99.1 F Pulse Rate 101 H 101 H 107 H Respiratory Rate 26 H 26 H 34 H Blood Pressure 196/87 H 198/86 H Pulse Oximetry 99 99 100 10/26/18 06:00 10/26/18 06:02 10/26/18 06:17 Temperature 99.3 F 99.3 F 99.3 F Pulse Rate 108 H 107 H 104 H Respiratory Rate 29 H 24 19 Blood Pressure 193/88 H 188/89 H 172/79 H Pulse Oximetry 100 100 97 10/26/18 06:32 10/26/18 07:00 10/26/18 07:02 Temperature 99.3 F 99.3 F 99.3 F Pulse Rate 86 117 H 118 H Respiratory Rate 16 31 H 35 H Blood Pressure 170/76 H 183/84 H Pulse Oximetry 95 99 97 10/26/18 07:32 10/26/18 07:39 10/26/18 08:00 Temperature 99.3 F 99.5 F Pulse Rate 119 H 110 H Respiratory Rate 39 H 20 34 H Blood Pressure 181/84 H 181/84 H Pulse Oximetry 98 98 97 10/26/18 08:02 10/26/18 08:32 10/26/18 10:00 Temperature 99.5 F 99.5 F 100.2 F H Pulse Rate 113 H 103 H 89 Respiratory Rate 30 H 35 H 35 H Blood Pressure 182/86 H 186/84 H Pulse Oximetry 97 98 95 10/26/18 10:03 10/26/18 12:00 10/26/18 12:03 Temperature 100.2 F H 100.0 F H 100.0 F H Pulse Rate 77 104 H 106 H Respiratory Rate 6 L 30 H 47 H Blood Pressure 151/69 H 181/85 H Pulse Oximetry 97 98 98 10/26/18 14:00 10/26/18 14:03 10/26/18 16:41 Temperature 100.2 F H 100.0 F H Pulse Rate 105 H 104 H 116 H Respiratory Rate 26 H 24 30 H Blood Pressure 182/81 H Pulse Oximetry 96 95 Intake & Output 10/25/18 10/26/18 10/26/18 18:59 06:59 18:59 Intake Total 651 / 651 594 / 594 1515 / 1515 Output Total 750 / 750 700 / 700 Balance -99 / -99 -106 / -106 1515 / 1515 Weight 93.7 kg Intake: IV 1515 / 1515 LR 1000 mL Inj 1,000 ML @ 20 1000 / 1000 mls/hr IV.CONT .Q24H ERIKA Rx#: [id number] Vancomycin Inj 1,500 MG In NS 515 / 515 Inj 500 ML @ 250 mls/hr IV.SIG ONCE ONE Rx#:[id number] Tube Feeding 551 / 551 474 / 474 Water Bolus Amount 100 / 100 120 / 120 Output: Urine Amount (Catheter) 750 / 750 700 / 700 Indwelling Urethral Catheter 750 / 750 700 / 700 Other: Date of Last Bowel Movement 10/24/18 10/24/18 10/26/18 # Bowel Movements 0 Narrative: Looks at examiner, follows some commands, moving all extremities full strength trache weaning - Urinary Catheter Management Indwelling Urethral Catheter Cath placed during this visit: yes, but has since been removed by the nurse Reason for continuing: Acute urinary retention Insertion date: 10/22/18 Insertion time: 08:05 Removal date: 10/22/18 Removal time: 08:00 Assessment and Plan - Plan 73yoM po (10/02/18) L2-5 revision fusion and left L2/3 discectomy 10/15/18 pod#1 revision of lumbar wound. Keep Lumbar Drain at 5cm below EAC, goal 160/ 12 hours (or 120/8 hour shift). 10/16/18 CSF starting to show yellow-- sample sent to micro/lab dressing dry. continue lumbar drainage until Friday10/17/18 f/u CSF-- negative thus far. MRI/Brain/C-spine/EEG-negative -- appreciate Neurology consult Lumbar drain until Friday, then clamp, then d/c Friday if dressing continues to be dry 10/18/18 Continue lumbar drainage until tomorrow then clamp and observe back dressing. Appreciate Neurology consult re: difficult to explain neuro exam PEG tube yesterday appreciate ID recs/abx re: rash 10/19: lumbar drain clamped continue monitor lumbar wound 10/20: wound and dressing wet but no obvious drainage seen, lumbar drain reopened and continue draining for now 10/21: wound much band cutter today following reopening of lumbar drain, will cont lumbar drain for now 10/22: reclamp lumbar drain tonightDr. Peter to return to reevaluate wound tomorrow 10/23: incision dry.. will keep clamped GI consult as above given melena today hemoccult sent (iron studies) + daughter gives a GI workup history for chronic anemia including bone marrow and U/LGI that were neg, but these were done before admission, patient receives iron every 2 weeks and normally Hgb 8, here 6 multiple transfusions + PEG tube in last week 10/24: monitor drain exit site incision c/d/i f/u GI recs and f/u H/H as he continues to have tarry stools 10/25: drain out - incision dry -- sutures to be removed on 11/04 -- clear from Neurosurgical point of view Hgb stable at 8 yesterday but three black tarry stools after that -- daily Hgb - - GI following -- PEG placed ~1 week ago 10/26 drain out - incision dry -- sutures to be removed on 11/04 -- clear from Neurosurgical point of view d/c when able and cleared from GI
--- NOTE | 2018-10-26 18:43 | NM ---
EXAM DATE: 10/26/2018 6:31 PM EST AGE/SEX: 73 years / Male INDICATIONS: Blood in stool. CLINICAL DATA: This is the patient's initial encounter. Patient reports that signs and symptoms have been present for 1 day and indicates a pain score of 0/10. MEDICAL/SURGICAL HISTORY: Gastroesophageal reflux disease. Hypertension. Osteoarthritis. . En darterectomy. COMPARISON: No prior exams available for comparison. TECHNIQUE: Following the modified in vitro labeling of autologous red cells, dynamic continuous image s were acquired for two hours. ?? DOSE: 21.3 mCi Tc 99m Ultratag Labeled Red Blood Cells IV IMAGING TIME: 2 hr FINDINGS: Biodistribution: There is a very good labeling of red cells without significant uptake in the gastri c wall. There is good delineation of the blood pool of the spleen and abdominal vessels. Bleeding: No episodes of active GI bleeding are observed during two hours of continuous observation . CONCLUSION: Negative GI bleeding demonstrated. Electronically signed by: Blaise Zarate MD 10/26/2018 6:42 PM EST
[2018-10-26] MEDS: Divalproex 125 MG Sprinkles Capsule PO SCH (20:10)
[2018-10-26 21:11] LABS: Bacteria,Urine Few /hpf; Bilirubin,Urine Negative (Negative); Clarity,Urine Cloudy (Clear); Color,Urine Yellow (Yellw/Straw); Glucose,Urine (UA) Negative (Negative); Hyaline Casts,Urine 2 /lpf (0-3); Leukocyte Esterase,Urine Small (Negative); Mucus,Urine Few /lpf (Occasional); Nitrite,Urine Negative (Negative); Specific Gravity,Urine 1.015 (1.002-1.035)
[2018-10-26] MEDS: Temazepam 15 MG Capsule PO SCH ×2 (22:00→22:12)
[2018-10-27] MEDS: Temazepam 15 MG Capsule PO SCH (01:04)
[2018-10-27] MEDS: Oral Hygiene Kit OROPHARYNG SCH (03:01)
[2018-10-27] MEDS: Methadone 10 MG Tablet PO SCH (04:05)
--- NOTE | 2018-10-27 07:55 | P.PNNPSY ---
- Behavior Mild: Impulsive/agitated - Progress Notes/Response to Treatment Contents of Sessions: Adjustment, Level of consciousness Time with Patient: 30 minutes Premorbid Psychological Status: Premorbid Cognitive, Emotional and Behavioral Status: Stable. 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 The patient has no prior psychiatric difficulties, as described above. Substance abuse history is unremarkable. Behavioral Reactions of Patient and Family/Support System: Stable. The patient s family is experiencing ongoing issues of adjustment given the nature of the injury, and this aspect of recovery will require ongoing monitoring. Emotional/Behavioral Status of Patient and Family/Support System: Stable. Pertinent issues, if appropriate to this patients clinical care, are described in detail above. Maximizing Acute Care Outcome: It is recommended that the patient be monitored for emergent behavioral impulsivity as the medical condition evolves. This patients neuropathological challenges may limit rehabilitation potential going forward, and these challenges will require specialized therapeutic skills to maximize outcome. At this point in the recovery process, the patient does not have cognitive capacity as the patient is unable to understand a situation and its likely consequences, nor is the patient able to manipulate information rationally. Cognitive capacity will be assessed throughout the recovery process. Anticipated Problems: Ongoing areas of concern will include behavioral impulsivity, lack of insight and judgment, which is expected to improve with time and treatment. Suggest continued treatment with current pharmacological approach, unless medically contraindicated. His recent ABS scores reflect improvement as such in terms of his neurobehavioral issues. Treatment Plan: This clinician will continue to follow with you throughout the course of this patients critical care treatment, and I will be available to meet with the patients family/support system to facilitate their understanding and the ongoing care of their family member. The goals of neuropsychological intervention shall be both educational and supportive to the family/support system as is deemed clinically appropriate. Disinhibition Score: 22.75 Aggression Score: 14.00 Lability Score: 14.00 Agitated Behavior Total Score: 19 Impression: 73 year old male with neurocognitive and neurobehavioral issues, possibly ICU delirium. Progress Note Narrative: Day 25. The patient is improving from a neurobehavioral standpoint, with less agitation/restlessness. ABS = 19 (22.3,14,14) continuing to down trend. However , he remains quite confused, not following commands. Remains on Risperdal .5 HS , Restoril. I will follow. - Diagnosis (1) Major neurocognitive disorder due to another medical condition with behavioral disturbance Status: Acute
[2018-10-27] MEDS: levoFLOXacin 750 MG Tablet PO SCH (08:29)
[2018-10-27] MEDS: Chlorhexidine 0.12% Oral Kit 15 ML UDC OROPHARYNG SCH (08:29)
[2018-10-27] MEDS: Metoprolol Tartrate 50 MG Tablet PO SCH (08:29)
[2018-10-27] MEDS: Sodium Chloride 0.9% 2 ML Flush BID IV.FLUSH SCH (08:30)
[2018-10-27] MEDS: Senna/Docusate Sodium 8.6/50 MG Tablet PO SCH (08:30)
[2018-10-27] MEDS: Famotidine PF Inj 20 MG/2 ML Vial IV.PUSH SCH (08:30)
[2018-10-27 09:00] VITALS: BP 174/81
[2018-10-27 10:25] VITALS: PULSE 78; RESP 24; TEMP 99.3; O2SAT 98
--- NOTE | 2018-10-27 14:41 | P.DS ---
Date of admission: 10/02/18 17:24 Primary care physician: Srinivas Mendieta Attending physician on discharge: Alysa Welsh Anticipated date of discharge: 10/27/18 Brief History from admission: Patient is a 73-year-old male with past medical history significant for hypertension, COPD, Prostate carcinoma, history of previous lumbar laminectomy who came to the [place] emergency department as a transfer from transfer from [facility]. He was accepted by neurosurgery Dr. Peter for acute onset bilateral lower extremity weakness. Patient states that he woke up this morning around 6 AM with numbness and weakness of bilateral lower extremity. On attempt to walk he fell on his face due to weakness. Patient states that the strength got slight better since then. CT scan of the lumbar spine large area of soft attenuation attenuation in the ventral epidural space L2-L3 level suspicious for large disc extrusion with spinal canal stenosis with differential diagnosis involving hemorrhage, there is also at least moderate bilateral neural foraminal stenosis. I evaluate the patient in the ED. He complains of weakness more on the left leg which he is unable to lift. There is generalized numbness but he is able to feel my touch. Critical care was requested to admit the patient to the ICU. Discussed with Dr. Kyrie EDWARD and Dr. Peter neurosurgery. A stat MRI of the lumbar spine had been ordered. Patient update on day of discharge: Patient is a 73-year-old male with past medical history significant for hypertension, COPD, Prostate carcinoma, history of previous lumbar laminectomy who came to the [place] emergency department as a transfer from transfer from [facility]. He was accepted by neurosurgery Dr. Peter for acute onset bilateral lower extremity weakness. Patient states that he woke up this morning around 6 AM with numbness and weakness of bilateral lower extremity. On attempt to walk he fell on his face due to weakness. Patient states that the strength got slight better since then. CT scan of the lumbar spine large area of soft attenuation attenuation in the ventral epidural space L2-L3 level suspicious for large disc extrusion with spinal canal stenosis with differential diagnosis involving hemorrhage, there is also at least moderate bilateral neural foraminal stenosis. I evaluate the patient in the ED. He complains of weakness more on the left leg which he is unable to lift. There is generalized numbness but he is able to feel my touch. Critical care was requested to admit the patient to the ICU. Discussed with Dr. Kyrie EDWARD and Dr. Peter neurosurgery. A stat MRI of the lumbar spine had been ordered. 10/03: Remains intubated sedated. Remains on Levophed at 10 mcg/min to maintain map above 70. Patient is s/p L2 to L5 posterior spinal fusion, Left L2 /3 microdiscectomy. (MRI showed large herniated disc at L2/3 and flex/ex showing instability at this level). On sedation hold patient is moving all 4 extremities. Hb 8.3 will transfuse 1 unit PRBC due to hypotension 10/04: Remains intubated sedated remains on 8 mcg/min of Levophed to maintain map above 75. Transfusing 1 unit PRBC for hemoglobin 7.4. post-op MRI with significant disc herniation at L2/3. Scheduled for surgery today with Dr. Peter 10/05: Patient underwent surgery on 10/04/2018 for removal residual disc at L2/ 3 right side based on post-op MRI. (s/p L2-5 revision fusion and left L2/3 discectomy on 10/02/18). Today patient's hypoxemia had improved, he was awake but on lightening sedation was very agitated so after a short CPAP trial patient was extubated. Shortly after extubation patient became very agitated requiring four-point restraints and physically nurses having to restrain him. 2 mg IV Ativan was given following which patient became partially responsive with obstructive airway sounds. Shortly became hypoxemic desaturated, became bradycardic in 40s and systolic blood pressure does drop to mid 40s. I was emergently called to the bedside I started bag and mask ventilation immediately. Half ampule of epinephrine was post IV. His heart rate in systolic blood pressure improved with bag and mask ventilation and epinephrine push however he remained unresponsive. Emergently intubated and placed on mechanical ventilation. Once more responsive will start on sedation with Versed. Start Levophed to maintain map above 65. Postintubation chest x-ray is pending. 10/06: Remains intubated heavily sedated for vent synchrony. Patient gets very agitated on holding sedation. We will start Precedex to facilitate vent weaning. Hemoglobin is 7.1, 1 unit of PRBC followed by IV Lasix ordered. 10/07: Agitated. TVs > 1.0 liter spontaneous. Extubated. Patient required reintubation about 5 hours later due to hypoxemia. 10/08: Intubated for the third time last evening. He is unable to tolerate extubation due to a combination of underlying lung disease and severe agitation. If the family wishes to proceed he will require tracheostomy for safe weaning from the ventilator. His baseline mental status is apparently pretty close to normal. 10/09: Tracheostomy placed yesterday. Large amounts of white thick secretions encountered. Chest x-ray continues with a pattern of pulmonary edema. We will continue aggressive twice daily diuretic therapy. Ostensibly plan is to transfer to [facility] at the beginning of next week. One family member is not on board with that yet however. 10/10: Lumbar drain has been placed. Continue spontaneous breathing trials through tracheostomy. Continue discussions with family about transfer to LTAC for long-term weaning. No evidence of infection. 10/11: Effective diuresis but now developing a mild prerenal azotemia. Will hold off for a while and gently hydrate. Now the tracheostomy is performed there is not quite urgency to desiccate his lungs. Hopefully we can work toward a cyst transferred to [facility] after lumbar drain discontinued. 10/12: Following tracheostomy we will continue with attempts at ventilator weaning. Patient has a lumbar drain in place in an attempt to stop a lumbar region wound CSF leak. Counts include 234 beds at the [facility] will take this patient for long-term weaning once lumbar drain is out. Gentle hydration continues until such time as prerenal azotemia is attenuated. Continue enteral nutrition. 10/13: Remains on mechanical ventilation via tracheostomy. Still on significant sedation due to agitation issues. Lumbar drain continues to drain. Possible surgery tomorrow. 10/14: Remains sedated, on mechanical ventilation via tracheostomy. Scheduled for surgery today for CSF leak lumbar region. 10/15: Remains sedated on mechanical ventilation via tracheostomy. Status post revision of lumbar wound on 10/14 by neurosurgery. Lumbar drain in place and drained 120 cc since yesterday. 10/16: Remains on mechanical ventilation via tracheostomy. Still dealing with agitation on lightening sedation. On Precedex/fentanyl. Received 1 dose of Geodon last night. Also getting as needed Ativan and Seroquel. 10/17: We continue to deal with bouts of agitation which hamper her ability to wean him from the ventilator. Gas exchange remains acceptable. He has required 1 unit of blood transfusion. 10/18: Plan is to clamp drain friday and remove mid-week if lumbar dressing stays dry. Tolerating CPAP today we will try to progress to T piece. 10/19: Patient still intermittently agitated. Per neurology service request we will stop all sedation and analgesia aside from methadone. 10/20: We are unsuccessful getting past spontaneous breathing trials. Still not strong enough to tolerate T-piece. 10/21: Remains encephalopathic, on mechanical ventilation via tracheostomy. Failed CPAP trial this morning. Hemoglobin 6.2. Ordered 2 units PRBCs to be transfused. No overt evidence of blood loss. Temperature 100.7 this morning. Lumbar drain in place and put out 120 cc CSF overnight. Off all sedatives. Tolerating tube feeds via PEG. 10/22: Remains encephalopathic. Has spontaneous eye opening however not following commands. Lumbar drain remains in place. 10/23: Awake, follows occasional commands. Remains on mechanical ventilation via tracheostomy. Melena this morning. Hemoglobin dropped to 7.4. No hypotension. GI reconsulted for evaluation for GI bleed. 1 unit PRBCs being transfused. Dr. Hamilton from neurology reevaluated patient and is initiating a sleep regimen. 10/24: Patient is opening eyes to minimal voice this morning and tracking with his eyes. He is calm and I have not witnessed any of his customary severe agitation. Modest early prerenal azotemia developing, hydrate gently. Continue spontaneous breathing trials, not tolerating T-piece yet. 10/25: Progressing well on spontaneous breathing trials. Will attempt T-piece trial today. Tracks with eyes and looks around a little better. 10/26: Awake and alert. Tracks with eyes. Still has occasional jerking movements. On mechanical ventilation via tracheostomy. Tolerating PEG feeds ASSESSMENT/PLAN on day of discharge: Acute hypoxemic hypercarbic/hypoxemic respiratory failure Respiratory arrest after receiving Ativan on 10/05/2018 Hypotension now resolved Lumbar cord compression likely secondary to large herniated disc, with lower extremity weakness Right L2/L3 discectomy 10/04/2018 for removal residual disc at right L2/3 s/p L2-5 revision fusion and left L2/3 discectomy on 10/02/18. Hypotension on pressors History of previous lumbar posterior fusion and microdiscectomy by Dr. Hansen Acute on chronic kidney disease Anemia requiring transfusion Acute blood loss anemia Suspected GI bleed History of prostate cancer COPD History of hypertension PLAN: NEURO: -MRI showing large herniated disc at L2/3 and flex/ex showing instability at this level. -s/p L2-5 revision fusion and left L2/3 discectomy on 10/02/18. -post-op MRI with significant disc herniation at right L2/3 despite resection, Right L2/L3 discectomy 10/04/2018 - Lumbar drain clamped, in place for CSF leak. Status post lumbar wound revision on 10/14 by neurosurgery -Continue to hold medications for agitation. -Hold sedation and antipsychotics 10/19 -Test clamp lumbar drain started 10/19 and subsequently discontinued. -Sleep regimen initiated by Dr. Hamilton, Seroquel restarted 10/23 RESP: -Extubated 10/05/18 however became unresponsive and hypoxic after receiving Ativan for agitation -Emergently reintubated and placed on mechanical ventilation -Currently on PRVC/AC -DuoNeb every 6 hours scheduled and as needed -Extubated again 10/07 -Required reintubation 5 hours after extubation due to secretions and hypoxemia. -Tracheostomy performed 10/08 -Continue spontaneous breathing trials. CV: -Cardiac decompensation most likely secondary to pulmonary problems, hypoxemia -Gas exchange acceptable -Fluid balance remains about right now GI: -Tube feedings via PEG Bleeding scan negative 10/26 - Bowel regimen instituted : -Monitor renal function closely. -Strict intake output, follow BUN and creatinine ID: -Sputum culture, stop cefepime due to rash, switched to IV Azactam and vancomycin due to rash on 10/16. ID switched Abx to levaquin -Adjust per ID consult for antibiotic management -10/19 Sputum growing gram-negative rods, one positive blood culture with [facility]. Antibiotics adjusted by infectious disease service HEME: -Monitor CBC, coags -Ordered 2 units PRBCs to be transfused for hemoglobin 6.2 on 10/21. Melena noted on 10/23 with drop in hemoglobin. 1 unit PRBCs ordered to be transfused on 10/23 -Per discussion with patient's daughter on 10/21 he has had extensive workup for anemia with an oncologist including bone marrow, GI workup and was being treated with IV iron however no obvious source of blood loss on previous workup per daughter. -Hemoglobin now stable ENDO: -Electrolyte replacement per protocol PROPH: -Bilateral lower extremity SCDs. No chemical DVT prophylaxis due to evidence of recent GI bleed LINES: -Utilize peripheral IVs -PT evaluate and treat Overall impression impression: We will continue to try to clean up his lungs and strive for ventilator weaning. Transferred to [facility] for vent weaning on 10/27/18. 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 He was accepted by neurosurgery Dr. Peter for acute onset bilateral lower extremity weakness. Patient states that he woke up this morning around 6 AM with numbness and weakness of bilateral lower extremity. On attempt to walk he fell on his face due to weakness. Patient states that the strength got slight better since then. CT scan of the lumbar spine large area of soft attenuation attenuation in the ventral epidural space L2-L3 level suspicious for large disc extrusion with spinal canal stenosis with differential diagnosis involving hemorrhage, there is also at least moderate bilateral neural foraminal stenosis. I evaluate the patient in the ED. He complains of weakness more on the left leg which he is unable to lift. There is generalized numbness but he is able to feel my touch. Critical care was requested to admit the patient to the ICU. Discussed with Dr. Kyrie EDWARD and Dr. Peter neurosurgery. A stat MRI of the lumbar spine had been ordered. 10/03: Remains intubated sedated. Remains on Levophed at 10 mcg/min to maintain map above 70. Patient is s/p L2 to L5 posterior spinal fusion, Left L2 /3 microdiscectomy. (MRI showed large herniated disc at L2/3 and flex/ex showing instability at this level). On sedation hold patient is moving all 4 extremities. Hb 8.3 will transfuse 1 unit PRBC due to hypotension 10/04: Remains intubated sedated remains on 8 mcg/min of Levophed to maintain map above 75. Transfusing 1 unit PRBC for hemoglobin 7.4. post-op MRI with significant disc herniation at L2/3. Scheduled for surgery today with Dr. Peter 10/05: Patient underwent surgery on 10/04/2018 for removal residual disc at L2/ 3 right side based on post-op MRI. (s/p L2-5 revision fusion and left L2/3 discectomy on 10/02/18). Today patient's hypoxemia had improved, he was awake but on lightening sedation was very agitated so after a short CPAP trial patient was extubated. Shortly after extubation patient became very agitated requiring four-point restraints and physically nurses having to restrain him. 2 mg IV Ativan was given following which patient became partially responsive with obstructive airway sounds. Shortly became hypoxemic desaturated, became bradycardic in 40s and systolic blood pressure does drop to mid 40s. I was emergently called to the bedside I started bag and mask ventilation immediately. Half ampule of epinephrine was post IV. His heart rate in systolic blood pressure improved with bag and mask ventilation and epinephrine push however he remained unresponsive. Emergently intubated and placed on mechanical ventilation. Once more responsive will start on sedation with Versed. Start Levophed to maintain map above 65. Postintubation chest x-ray is pending. 10/06: Remains intubated heavily sedated for vent synchrony. Patient gets very agitated on holding sedation. We will start Precedex to facilitate vent weaning. Hemoglobin is 7.1, 1 unit of PRBC followed by IV Lasix ordered. 10/07: Agitated. TVs > 1.0 liter spontaneous. Extubated. Patient required reintubation about 5 hours later due to hypoxemia. 10/08: Intubated for the third time last evening. He is unable to tolerate extubation due to a combination of underlying lung disease and severe agitation. If the family wishes to proceed he will require tracheostomy for safe weaning from the ventilator. His baseline mental status is apparently pretty close to normal. 10/09: Tracheostomy placed yesterday. Large amounts of white thick secretions encountered. Chest x-ray continues with a pattern of pulmonary edema. We will continue aggressive twice daily diuretic therapy. Ostensibly plan is to transfer to [facility] at the beginning of next week. One family member is not on board with that yet however. 10/10: Lumbar drain has been placed. Continue spontaneous breathing trials through tracheostomy. Continue discussions with family about transfer to LTAC for long-term weaning. No evidence of infection. 10/11: Effective diuresis but now developing a mild prerenal azotemia. Will hold off for a while and gently hydrate. Now the tracheostomy is performed there is not quite urgency to desiccate his lungs. Hopefully we can work toward a cyst transferred to [facility] after lumbar drain discontinued. 10/12: Following tracheostomy we will continue with attempts at ventilator weaning. Patient has a lumbar drain in place in an attempt to stop a lumbar region wound CSF leak. Counts include 234 beds at the [facility] will take this patient for long-term weaning once lumbar drain is out. Gentle hydration continues until such time as prerenal azotemia is attenuated. Continue enteral nutrition. 10/13: Remains on mechanical ventilation via tracheostomy. Still on significant sedation due to agitation issues. Lumbar drain continues to drain. Possible surgery tomorrow. 10/14: Remains sedated, on mechanical ventilation via tracheostomy. Scheduled for surgery today for CSF leak lumbar region. 10/15: Remains sedated on mechanical ventilation via tracheostomy. Status post revision of lumbar wound on 10/14 by neurosurgery. Lumbar drain in place and drained 120 cc since yesterday. 10/16: Remains on mechanical ventilation via tracheostomy. Still dealing with agitation on lightening sedation. On Precedex/fentanyl. Received 1 dose of Geodon last night. Also getting as needed Ativan and Seroquel. 10/17: We continue to deal with bouts of agitation which hamper her ability to wean him from the ventilator. Gas exchange remains acceptable. He has required 1 unit of blood transfusion. 10/18: Plan is to clamp drain friday and remove mid-week if lumbar dressing stays dry. Tolerating CPAP today we will try to progress to T piece. 10/19: Patient still intermittently agitated. Per neurology service request we will stop all sedation and analgesia aside from methadone. 10/20: We are unsuccessful getting past spontaneous breathing trials. Still not strong enough to tolerate T-piece. 10/21: Remains encephalopathic, on mechanical ventilation via tracheostomy. Failed CPAP trial this morning. Hemoglobin 6.2. Ordered 2 units PRBCs to be transfused. No overt evidence of blood loss. Temperature 100.7 this morning. Lumbar drain in place and put out 120 cc CSF overnight. Off all sedatives. Tolerating tube feeds via PEG. 10/22: Remains encephalopathic. Has spontaneous eye opening however not following commands. Lumbar drain remains in place. 10/23: Awake, follows occasional commands. Remains on mechanical ventilation via tracheostomy. Melena this morning. Hemoglobin dropped to 7.4. No hypotension. GI reconsulted for evaluation for GI bleed. 1 unit PRBCs being transfused. Dr. Hamilton from neurology reevaluated patient and is initiating a sleep regimen. 10/24: Patient is opening eyes to minimal voice this morning and tracking with his eyes. He is calm and I have not witnessed any of his customary severe agitation. Modest early prerenal azotemia developing, hydrate gently. Continue spontaneous breathing trials, not tolerating T-piece yet. 10/25: Progressing well on spontaneous breathing trials. Will attempt T-piece trial today. Tracks with eyes and looks around a little better. 10/26: Awake and alert. Tracks with eyes. Still has occasional jerking movements. On mechanical ventilation via tracheostomy. Tolerating PEG feeds 10/27: Discharged to [facility]3] - Time Spent with Patient Total time spent providing and/or coordinating discharge services: Greater than 30 minutes - Quality: VTE Contraindication No VTE Prophylaxis: Medical contraindication Deep Vein Thrombosis/Pulmonary Embolism Present on Admission: No Exam Vital signs: Vital Signs 10/26/18 14:33 10/26/18 15:00 10/26/18 15:03 Temperature 100.2 F H 100.4 F H 100.4 F H Pulse Rate 117 H 108 H 102 H Respiratory Rate 40 H 19 20 Blood Pressure 180/86 H 172/76 H Pulse Oximetry 96 97 97 10/26/18 15:33 10/26/18 16:00 10/26/18 16:03 Temperature 100.4 F H 100.2 F H 100.2 F H Pulse Rate 109 H 112 H 115 H Respiratory Rate 25 H 36 H 37 H Blood Pressure 185/86 H 212/93 H Pulse Oximetry 95 99 99 10/26/18 16:33 10/26/18 16:38 10/26/18 16:40 Temperature 100.4 F H 100.4 F H 100.4 F H Pulse Rate 150 H 147 H 119 H Respiratory Rate 54 H 38 H 45 H Blood Pressure 231/110 H 210/99 H 227/105 H Pulse Oximetry 98 98 94 L 10/26/18 16:41 10/26/18 16:43 10/26/18 17:00 Temperature 100.4 F H 100.6 F H Pulse Rate 116 H 112 H 111 H Respiratory Rate 30 H 33 H 28 H Blood Pressure 208/102 H 185/84 H Pulse Oximetry 95 99 10/26/18 17:03 10/26/18 17:28 10/26/18 17:33 Temperature 100.8 F H 100.6 F H Pulse Rate 112 H 103 H Respiratory Rate 29 H 17 Blood Pressure 175/81 H 154/72 H Pulse Oximetry 99 100 99 10/26/18 18:00 10/26/18 18:03 10/26/18 18:33 Temperature 100.4 F H 100.4 F H 100.0 F H Pulse Rate 106 H 104 H 109 H Respiratory Rate 20 21 22 Blood Pressure 162/73 H 160/77 H Pulse Oximetry 98 98 98 10/26/18 18:47 10/26/18 19:00 10/26/18 19:03 Temperature Pulse Rate 109 H 107 H Respiratory Rate 17 14 Blood Pressure 144/67 H Pulse Oximetry 98 95 95 10/26/18 19:33 10/26/18 20:00 10/26/18 20:03 Temperature 98.5 F Pulse Rate 93 H 95 H 96 H Respiratory Rate 12 14 12 Blood Pressure 131/62 103/51 L Pulse Oximetry 95 93 L 93 L 10/26/18 20:33 10/26/18 21:00 10/26/18 21:03 Temperature Pulse Rate 90 84 84 Respiratory Rate 13 14 14 Blood Pressure 124/60 125/60 Pulse Oximetry 96 96 96 10/26/18 21:33 10/26/18 22:00 10/26/18 22:03 Temperature 99.0 F 99.0 F Pulse Rate 81 95 H 91 H Respiratory Rate 13 16 13 Blood Pressure 115/55 L 126/59 L Pulse Oximetry 96 95 95 10/26/18 22:33 10/26/18 23:00 10/26/18 23:03 Temperature 99.0 F 99.0 F 99.0 F Pulse Rate 90 86 85 Respiratory Rate 13 13 15 Blood Pressure 124/59 L 115/57 L Pulse Oximetry 96 96 96 10/26/18 23:33 10/26/18 23:56 10/27/18 00:00 Temperature 98.8 F 98.8 F Pulse Rate 88 84 Respiratory Rate 12 13 12 Blood Pressure 122/60 Pulse Oximetry 96 97 97 10/27/18 00:03 10/27/18 00:33 10/27/18 01:00 Temperature 98.6 F 98.6 F 98.4 F Pulse Rate 83 87 105 H Respiratory Rate 12 13 14 Blood Pressure 135/62 126/58 L Pulse Oximetry 98 96 97 10/27/18 01:03 10/27/18 01:33 10/27/18 01:41 Temperature 98.4 F 98.6 F Pulse Rate 104 H 90 Respiratory Rate 14 14 15 Blood Pressure 171/78 H 139/65 Pulse Oximetry 98 97 97 10/27/18 02:00 10/27/18 02:03 10/27/18 02:33 Temperature 98.6 F 98.6 F 98.4 F Pulse Rate 83 80 87 Respiratory Rate 12 16 16 Blood Pressure 116/57 L 134/61 Pulse Oximetry 96 96 96 10/27/18 03:00 10/27/18 03:03 10/27/18 03:33 Temperature 98.4 F 98.4 F 98.2 F Pulse Rate 83 81 81 Respiratory Rate 16 16 14 Blood Pressure 144/66 H 131/63 Pulse Oximetry 97 98 98 10/27/18 04:00 10/27/18 04:03 10/27/18 04:20 Temperature 98.2 F 98.4 F Pulse Rate 91 H 90 Respiratory Rate 13 12 12 Blood Pressure 151/70 H Pulse Oximetry 98 97 98 10/27/18 04:33 10/27/18 05:00 10/27/18 05:03 Temperature 98.2 F 98.2 F 98.2 F Pulse Rate 85 98 H 101 H Respiratory Rate 14 12 20 Blood Pressure 149/69 H 191/83 H Pulse Oximetry 96 97 97 10/27/18 05:14 10/27/18 05:33 10/27/18 06:00 Temperature 98.2 F 98.2 F 98.2 F Pulse Rate 103 H 104 H 100 H Respiratory Rate 22 20 22 Blood Pressure 182/81 H 186/89 H Pulse Oximetry 96 97 97 10/27/18 06:03 10/27/18 06:33 10/27/18 08:00 Temperature 98.2 F 98.4 F 98.8 F Pulse Rate 96 H 94 H 103 H Respiratory Rate 13 16 12 Blood Pressure 170/77 H 163/73 H Pulse Oximetry 98 96 97 10/27/18 08:03 10/27/18 08:13 10/27/18 08:33 Temperature 98.8 F 99.0 F Pulse Rate 107 H 110 H Respiratory Rate 18 30 H Blood Pressure 184/79 H 174/81 H Pulse Oximetry 98 98 99 10/27/18 10:00 10/27/18 10:03 Temperature 99.3 F 99.3 F Pulse Rate 78 78 Respiratory Rate 24 24 Blood Pressure Pulse Oximetry 97 98 Intake & Output 10/26/18 10/27/18 10/27/18 18:59 06:59 18:59 Intake Total 1515 / 1515 863 / 863 Output Total 850 / 850 800 / 800 Balance 665 / 665 63 / 63 Weight 94.1 kg Intake: IV 1515 / 1515 LR 1000 mL Inj 1,000 ML @ 20 1000 / 1000 mls/hr IV.CONT .Q24H ERIKA Rx#: [id number] Vancomycin Inj 1,500 MG In NS 515 / 515 Inj 500 ML @ 250 mls/hr IV.SIG ONCE ONE Rx#:[id number] Tube Feeding 743 / 743 Water Bolus Amount 120 / 120 Output: Urine Amount (Catheter) 850 / 850 800 / 800 Indwelling Urethral Catheter 850 / 850 800 / 800 Other: Date of Last Bowel Movement 10/26/18 10/26/18 10/26/18 # Bowel Movements 0 Narrative: GENERAL: Elderly gentleman, ongoing vent weaning trials. No sedation. SKIN: Warm and dry HEAD: Normocephalic. Atraumatic EYES: No injection or drainage. No conjunctival icterus or injection ENT: Neck supple. Tracheostomy in place, site is clean and dry CARDIOVASCULAR: Regular rate and rhythm, S1-S2 normal, no murmurs. No JVD RESPIRATORY: Good bilateral air movement, generally clear. Secretions controllable. GASTROINTESTINAL: Abdomen soft, non-tender, nondistended. Bowel sounds present. MUSCULOSKELETAL: No cyanosis, minimal edema. Warm, well-perfused. NEURO: On mechanical ventilation via tracheostomy. Awake, alert, Tracks, occasionally responds to commands. Moves all 4 limbs spontaneously. Results Procedures completed during hospitalization: 10/02: s/p L2-5 revision fusion and left L2/3 discectomy 10/14: revision of lumbar wound, repair of CSF leak with lumbar patch tracheostomy PEG Completed studies during hospitalization: Chest X-Ray 10/02/18 16:26 CONCLUSION: No evidence of acute cardiopulmonary process. Lumbar Spine MRI 10/02/18 16:36 CONCLUSION: 1. No fracture or acute appearing malalignment of the lumbar spine. 2. Grade 1 degenerative retrolisthesis with a large, chronic inferiorly extruded posterior disc fragment at L2/L3. There is moderate to severe spinal stenosis and moderate to severe bilateral foraminal stenosis at this level. 3. Fusion at L4/L5 with associated magnetic susceptibility artifact. No perceptible acute complication at this level. Lumbar Spine X-Ray 10/02/18 16:36 CONCLUSION: Degenerative listhesis at L3-4 which remains unchanged during flexion and extension. Decreased range of motion. Progressing degenerative disc disease at L3-4. No acute bony abnormality. Status post fusion at L5-S1. Lumbar Spine MRI 10/03/18 00:00 CONCLUSION: 1. Degenerative changes and postsurgical changes are seen with disc protrusion at L2-3 resulting in canal and foraminal stenosis. Lumbar Spine X-Ray 10/03/18 00:00 CONCLUSION: Limited images as detailed above. Chest X-Ray 10/03/18 08:49 CONCLUSION: Right subclavian line placement. Lumbar Spine X-Ray 10/04/18 00:00 CONCLUSION: Chest X-Ray 10/04/18 05:00 CONCLUSION: Low lung volumes with mild bibasilar atelectasis. Chest X-Ray 10/04/18 11:42 CONCLUSION: Increasing consolidation in the left lower lobe. Small left effusion also suspected. Chest X-Ray 10/05/18 07:37 CONCLUSION: ET tube in good position. Continued basilar atelectasis/infiltrate on the left. Chest X-Ray 10/06/18 00:00 CONCLUSION: 1. ET tube in good position. 2. Continued left basilar effusion and consolidation of the left lower lobe. Chest X-Ray 10/07/18 11:03 CONCLUSION: Tubes and catheters in good position. Diffuse perihilar vascular congestion. Chest X-Ray 10/08/18 12:22 CONCLUSION: 1. Diffuse bilateral pulmonary infiltrates are noted consistent with pulmonary edema versus pneumonia. 2. Cardiomegaly. 3. Tracheostomy tube in good position 4 cm above the jessica. Lumbar Puncture Fluoroscopy 10/09/18 00:00 CONCLUSION: 1. Uncomplicated lumbar drain placement as above. Lumbar Spine MRI 10/09/18 00:00 CONCLUSION: 1. Significant improvement in the postoperative appearance of the spine with good decompression at L2-3. There is no significant thecal sac impingement. 2. Moderate facet disease is seen in the fused levels stable interval. Thoracic Spine MRI 10/09/18 00:00 CONCLUSION: 1. Significant cervical spinal stenosis, not evaluated on this exam. 2. There is no intrathoracic cord compression. 3. Conus is unremarkable. Chest X-Ray 10/13/18 04:00 CONCLUSION: Decreased bilateral pulmonary opacity. Likely represents decreased pulmonary edema. Cervical Spine MRI 10/16/18 11:58 CONCLUSION: Mild spondylosis and disc disease. No significant canal or foraminal compromise. No explanation for myelopathy. Head MRI 10/16/18 11:58 CONCLUSION: No acute intracranial findings. Chest X-Ray 10/19/18 00:00 CONCLUSION: 1. Interval removal of NGT. 2. Diffuse airspace opacities throughout the right lung with more confluent consolidation in the medial right lower lung zone. 3. Patchy mid to lower left lung zone airspace disease. 4. Overall findings are concerning for aspiration or diffuse infection given history of fever. Chest X-Ray 10/26/18 00:00 CONCLUSION: There continues to be diffuse bilateral interstitial and airspace pulmonary infiltrates throughout both lung whitaker. GI Bleed Scan Nuclear Medicine 10/26/18 00:00 CONCLUSION: Negative GI bleeding demonstrated. Labs on day of discharge: Labs from last 24 hours 10/27/18 10/26/18 00:10 20:30 Potassium 3.5 Urine Color Yellow Urine Clarity Cloudy H Urine pH 5.0 Ur Specific [place] 1.015 Urine Protein 100 H Urine Glucose (UA) Negative Urine Ketones Negative Urine Occult Blood Small H Urine Nitrate Negative Urine Bilirubin Negative Urine Urobilinogen Less than 2 Ur Leukocyte Esterase Small H Urine RBC 9 H Urine WBC 29 H Urine Bacteria Few H Hyaline Casts 2 Granular Casts 2 Urine Mucus Few H Urine Yeast Many H Ur Yeast w Hyphae Occasional H Micro UA Comment Cath-culture ind Ur Microscopic Review Not Reportable Urine Culture Comments Cath-cult indicated Preliminary micro results at discharge 10/14/18 13:51 Fungal Culture - Preliminary Tissue - Other No growth in 1 week 10/14/18 13:51 Mycobacterial Culture - Preliminary Tissue - Other No growth in 1 week 10/14/18 13:51 Mycobacterial Culture - Preliminary Wound - Back No growth in 1 week 10/14/18 13:51 Fungal Culture - Preliminary Wound - Back No growth in 1 week - Impressions ITS Impressions Lumbar Spine X-Ray 10/04/18 00:00 CONCLUSION: Lumbar Puncture Fluoroscopy 10/09/18 00:00 CONCLUSION: 1. Uncomplicated lumbar drain placement as above. Lumbar Spine MRI 10/09/18 00:00 CONCLUSION: 1. Significant improvement in the postoperative appearance of the spine with good decompression at L2-3. There is no significant thecal sac impingement. 2. Moderate facet disease is seen in the fused levels stable interval. Thoracic Spine MRI 10/09/18 00:00 CONCLUSION: 1. Significant cervical spinal stenosis, not evaluated on this exam. 2. There is no intrathoracic cord compression. 3. Conus is unremarkable. Cervical Spine MRI 10/16/18 11:58 CONCLUSION: Mild spondylosis and disc disease. No significant canal or foraminal compromise. No explanation for myelopathy. Head MRI 10/16/18 11:58 CONCLUSION: No acute intracranial findings. Chest X-Ray 10/26/18 00:00 CONCLUSION: There continues to be diffuse bilateral interstitial and airspace pulmonary infiltrates throughout both lung whitaker. GI Bleed Scan Nuclear Medicine 10/26/18 00:00 CONCLUSION: Negative GI bleeding demonstrated. Discharge Plan - Discharge Disposition Patient Disposition: 70 Transfer To Other Facility - Discharge Order Discharge Orders: Discharge Order (Routine); Ordered 10/26/18 Ordered By: Jacques Augustin ED Use Only Admit Order (Routine); Ordered 10/02/18 Ordered By: Tyrell Mittal - Physicians Team Primary Care Provider: Srinivas Mendieta Attending Provider: Alysa Welsh Other Providers: Eloy Peter MD ; Jorden Hansen MD ; [facility] ; Michael Iraheta, PhD ; Jelly Jeronimo MD ; Vinnie Hamilton MD ; Roxanna Rubin MD
== END 2018-10-27 11:38 | disposition short-term general hospital (02) ==
LOC: NEPC 14:42 → NEDA 17:24 → N03 18:50
PROVIDERS: ADMIT Internal Medicine; ATTEND Internal Medicine